=== PATIENT | female | born 1935 | race Caucasian/White ===

== ENCOUNTER 2018-02-09 10:01 | Emergency (ER) | payer OTHER, SELFPAY ==
--- OUTSIDE RECORDS SUMMARY | 2018-02-09 10:03 | XMS REPORT ---
:1935 [facility] Address [address] [place] [address] [address] [place] [address] Care Team Providers Name Role Phone NICHOLE PEREZ Unavailable Unavailable Problems This patient has no known problems. Allergies, Adverse Reactions, Alerts This patient has no known allergies or adverse reactions. Medications This patient has no known medications. Results Test Description Test Time Test Comments Text Results Atomic Results Result Comments BLOOD CULTURE 2017-12-22 05:01:00 Test Item Value Reference Range Comments CULTURE (BEAKER) (test dcop=6048) No growth in 5 days [id number] 11:31:00 Test Item Value Reference Range Comments MAGNESIUM (BEAKER) (test 2.2 mg/dL 1.6-2.6 Specimen slightly hemolyzed enhc=051) BASIC METABOLIC [id number] 11:31:00 Test Item Value Reference Range Comments SODIUM (BEAKER) (test 139 meq/L 136-145 wgjl=218) POTASSIUM (BEAKER) (test 4.0 meq/L 3.5-5.1 Specimen slightly dlif=174) hemolyzed CHLORIDE (BEAKER) (test 104 meq/L 98-107 adaw=090) CO2 (BEAKER) (test 27 meq/L 22-29 rsgs=066) BLOOD UREA NITROGEN 7 mg/dL 7-21 (BEAKER) (test lbsj=873) CREATININE (BEAKER) (test 0.60 mg/dL 0.57-1.25 Specimen slightly pltd=082) hemolyzed GLUCOSE RANDOM (BEAKER) 113 mg/dL 70-105 (test zepu=076) CALCIUM (BEAKER) (test 8.3 mg/dL 8.4-10.2 swlk=979) EGFR (BEAKER) (test 95 mL/min/1.73 sq m ESTIMATED GFR IS NOT ayrz=4011) ACCURATE CREATININE CLEARANCE IN PREDICTING GLOMERULAR FILTRATION RATE. ESTIMATED GFR IS NOT APPLICABLE FOR DIALYSIS PATIENTS. URINE [id number] 09:10:00 Test Item Value Reference Range Comments CULTURE (BEAKER) (test wlrt=6230) Amikacin (test code=1) Aztreonam (test code=32) Cefepime (test code=51) Cefoxitin (test code=68) Ceftazidime (test code=27) Ceftriaxone (test code=52) Ertapenem (test code=38) Gentamicin (test code=18) Levofloxacin (test code=22) Meropenem (test code=34) Nitrofurantoin (test code=23) Piperacillin + Tazobactam (test code=29) Tetracycline (test code=2) Tobramycin (test code=25) Trimethoprim + Sulfamethoxazole (test code=47) CULTURE (BEAKER) (test yuuj=0524) >100,000 col/mL Citrobacter braakii CBC W/PLT COUNT & AUTO [id number] 07:05:00 Test Item Value Reference Range Comments WHITE BLOOD CELL COUNT (BEAKER) (test dkim=412) 7.5 K/ L 3.5-10.5 RED BLOOD CELL COUNT (BEAKER) (test usaj=652) 4.30 M/ L 3.93-5.22 HEMOGLOBIN (BEAKER) (test nvoz=697) 10.1 GM/DL 11.2-15.7 HEMATOCRIT (BEAKER) (test lzem=721) 32.6 % 34.1-44.9 MEAN CORPUSCULAR VOLUME (BEAKER) (test lnvq=078) 75.8 fL 79.4-94.8 MEAN CORPUSCULAR HEMOGLOBIN (BEAKER) (test 23.5 pg 25.6-32.2 tiiw=469) MEAN CORPUSCULAR HEMOGLOBIN CONC (BEAKER) (test 31.0 GM/DL 32.2-35.5 tvaj=947) RED CELL DISTRIBUTION WIDTH (BEAKER) (test 14.1 % 11.7-14.4 brpk=483) PLATELET COUNT (BEAKER) (test lxqo=083) 289 K/CU MM 150-450 MEAN PLATELET VOLUME (BEAKER) (test enug=584) 9.1 fL 9.4-12.3 NUCLEATED RED BLOOD CELLS (BEAKER) (test 0 /100 WBC 0-0 rdki=108) NEUTROPHILS RELATIVE PERCENT (BEAKER) (test 73 % sxfl=983) LYMPHOCYTES RELATIVE PERCENT (BEAKER) (test 15 % tbef=764) MONOCYTES RELATIVE PERCENT (BEAKER) (test 9 % qawv=212) EOSINOPHILS RELATIVE PERCENT (BEAKER) (test 2 % vjbo=121) BASOPHILS RELATIVE PERCENT (BEAKER) (test 0 % lngw=772) NEUTROPHILS ABSOLUTE COUNT (BEAKER) (test 5.50 K/ L 1.56-6.13 ungi=118) LYMPHOCYTES ABSOLUTE COUNT (BEAKER) (test 1.12 K/ L 1.18-3.74 hwam=107) MONOCYTES ABSOLUTE COUNT (BEAKER) (test 0.67 K/ L 0.24-0.36 gawt=920) EOSINOPHILS ABSOLUTE COUNT (BEAKER) (test 0.16 K/ L 0.04-0.36 uvxm=668) BASOPHILS ABSOLUTE COUNT (BEAKER) (test 0.03 K/ L 0.01-0.08 euey=704) IMMATURE GRANULOCYTES-RELATIVE PERCENT (BEAKER) 0 % 0-1 (test kegy=6910) [id number] 08:15:00 Test Item Value Reference Range Comments MAGNESIUM (BEAKER) (test otak=502) 1.7 mg/dL 1.6-2.6 CBC W/PLT COUNT & AUTO [id number] 04:24:00 Test Item Value Reference Range Comments WHITE BLOOD CELL COUNT (BEAKER) (test dwdn=292) 6.7 K/ L 3.5-10.5 RED BLOOD CELL COUNT (BEAKER) (test qqzv=014) 3.69 M/ L 3.93-5.22 HEMOGLOBIN (BEAKER) (test mgbc=206) 8.6 GM/DL 11.2-15.7 HEMATOCRIT (BEAKER) (test jxfp=347) 28.5 % 34.1-44.9 MEAN CORPUSCULAR VOLUME (BEAKER) (test qvug=130) 77.2 fL 79.4-94.8 MEAN CORPUSCULAR HEMOGLOBIN (BEAKER) (test 23.3 pg 25.6-32.2 hdtu=182) MEAN CORPUSCULAR HEMOGLOBIN CONC (BEAKER) (test 30.2 GM/DL 32.2-35.5 ubhy=765) RED CELL DISTRIBUTION WIDTH (BEAKER) (test 13.7 % 11.7-14.4 zfts=085) PLATELET COUNT (BEAKER) (test qlww=360) 249 K/CU MM 150-450 MEAN PLATELET VOLUME (BEAKER) (test zrti=011) 8.8 fL 9.4-12.3 NUCLEATED RED BLOOD CELLS (BEAKER) (test 0 /100 WBC 0-0 omlw=933) NEUTROPHILS RELATIVE PERCENT (BEAKER) (test 64 % kxgs=920) LYMPHOCYTES RELATIVE PERCENT (BEAKER) (test 21 % lbbx=754) MONOCYTES RELATIVE PERCENT (BEAKER) (test 12 % xlln=685) EOSINOPHILS RELATIVE PERCENT (BEAKER) (test 3 % qhsi=605) BASOPHILS RELATIVE PERCENT (BEAKER) (test 0 % lecl=636) NEUTROPHILS ABSOLUTE COUNT (BEAKER) (test 4.23 K/ L 1.56-6.13 bxpp=367) LYMPHOCYTES ABSOLUTE COUNT (BEAKER) (test 1.39 K/ L 1.18-3.74 vede=688) MONOCYTES ABSOLUTE COUNT (BEAKER) (test 0.80 K/ L 0.24-0.36 typw=424) EOSINOPHILS ABSOLUTE COUNT (BEAKER) (test 0.20 K/ L 0.04-0.36 stfa=004) BASOPHILS ABSOLUTE COUNT (BEAKER) (test 0.02 K/ L 0.01-0.08 gwey=877) IMMATURE GRANULOCYTES-RELATIVE PERCENT (BEAKER) 0 % 0-1 (test ijki=7292) BASIC METABOLIC [id number] 04:19:00 Test Item Value Reference Range Comments SODIUM (BEAKER) (test 139 meq/L 136-145 sceg=726) POTASSIUM (BEAKER) (test 3.1 meq/L 3.5-5.1 glei=691) CHLORIDE (BEAKER) (test 103 meq/L 98-107 tdsw=515) CO2 (BEAKER) (test 29 meq/L 22-29 btco=319) BLOOD UREA NITROGEN 12 mg/dL 7-21 (BEAKER) (test zwcl=100) CREATININE (BEAKER) (test 0.65 mg/dL 0.57-1.25 jspx=321) GLUCOSE RANDOM (BEAKER) 91 mg/dL 70-105 (test qtta=110) CALCIUM (BEAKER) (test 8.1 mg/dL 8.4-10.2 vsrk=906) EGFR (LADONNA) (test 87 mL/min/1.73 sq m ESTIMATED GFR IS NOT ruqw=2311) ACCURATE CREATININE CLEARANCE IN PREDICTING GLOMERULAR FILTRATION RATE. ESTIMATED GFR IS NOT APPLICABLE FOR DIALYSIS PATIENTS. EEG MONITORING WITH VIDEO RECORDING EACH 24 [id number] 16:19:00Addendum BeginsAddendum:Start time: 0645Stop time: 1613 There continues to be background slowing, predominantly theta range intermixed with some delta and occasional faster frequencies. There is still no clear occipital dominant rhythm or frequency-amplitude gradient. The GPDs with triphasic morphology appear during deeper states of sedation but gradually decrease in frequency and prominence after 8 am. Overall, the degree of background slowing appears improved compared to prior recordings. Saida Wilkerson MDNeurophysiology Fellow Gely Cleary MD, MSEpilepsy/Neurophysiology Attending Addendum EndsDATE OF TEST: 12/16/2017 to DATE OF REPORT 12/16/17 ACC: [id number] Start time: 22: 43 Stop time: 06:45 ICD-10: G93.40 CPT Code: 26313 HISTORY: 82 yo F with history of chronic pain, chronic Lozano, osteoporosis, HTN, who was transferred from OSH for AMS and seizures. UDS +(patient on chronic pain medications). Loaded in ED with fosphenytoin. EEG ordered to evaluate fornon- convulsive status MEDICATIONS: Keppra, Ativan, Fopshenytoin TECHNICAL SUMMARY: This is a digital EEG study using the standard International 10-20 system for placement of 22 electrodes, including eye movement leads, and an EKG lead. DESCRIPTION OF RECORD: During the maximal stimulated state, there is no occipital dominant rhythm or anterior-posterior gradient. The background is made up of generalized 1.5-3 Hz delta and 4-7 Hz theta activity. In deeper states of sedation, there are broad-based bisynchronous sharp transients with a triphasic morphology occurring in runs with a periodicity of1 Hz (GPD with triphasic morphology); These are also more prominent during periods of stimulation (SI-GPD with triphasic morphology). These discharges are anterior predominant and have an anterior to posterior phase lag. Reactivity is demonstrated. Stage 2 sleep was not captured. There is no evidence of focal slowing or epileptiform activity. Photic stimulation and hyperventilation not performed. IMPRESSION: This EEG obtained during stupor is abnormal due to: 1. Moderate generalized (polymorphic delta and theta) background slowing, Reactive 2. Generalized periodic discharges with triphasic morphology (SI-GPD with triphasic morphology) COMMENT: The findings of generalized slowing supports an underlying moderate degree of encephalopathy. Triphasic waves are a nonspecific marker of acute cortical irritability that is typically seen in cases of metabolic encephalopathy, in particularliver dysfunction. The absence of epileptiform abnormality does not necessarily preclude the clinical diagnosis of epilepsy nor provoked seizure for the event(s) of interest. No seizures occurred during this recording. Saida Wilkerson MD Neurophysiology Fellow Gely Cleary MD, MS Epilepsy/Neurophysiology Attending [facility] METABOLIC [id number] 04:38:00 Test Item Value Reference Range Comments SODIUM (BEAKER) (test 142 meq/L 136-145 gpcj=056) POTASSIUM (BEAKER) (test 3.0 meq/L 3.5-5.1 kmka=712) CHLORIDE (BEAKER) (test 104 meq/L 98-107 gzsq=121) CO2 (BEAKER) (test 31 meq/L 22-29 fgne=432) BLOOD UREA NITROGEN 13 mg/dL 7-21 (BEAKER) (test nyhr=154) CREATININE (BEAKER) (test 0.64 mg/dL 0.57-1.25 vthn=760) GLUCOSE RANDOM (BEAKER) 122 mg/dL 70-105 (test luqq=034) CALCIUM (BEAKER) (test 8.1 mg/dL 8.4-10.2 zisf=895) EGFR (BEAKER) (test 89 mL/min/1.73 sq m ESTIMATED GFR IS NOT mfmt=9902) ACCURATE CREATININE CLEARANCE IN PREDICTING GLOMERULAR FILTRATION RATE. ESTIMATED GFR IS NOT APPLICABLE FOR DIALYSIS PATIENTS. CBC W/PLT COUNT & AUTO [id number] 04:03:00 Test Item Value Reference Range Comments WHITE BLOOD CELL COUNT (BEAKER) (test loyj=680) 8.6 K/ L 3.5-10.5 RED BLOOD CELL COUNT (BEAKER) (test eqnl=059) 3.94 M/ L 3.93-5.22 HEMOGLOBIN (BEAKER) (test oudk=961) 9.1 GM/DL 11.2-15.7 HEMATOCRIT (BEAKER) (test xpcc=485) 30.3 % 34.1-44.9 MEAN CORPUSCULAR VOLUME (BEAKER) (test wwym=244) 76.9 fL 79.4-94.8 MEAN CORPUSCULAR HEMOGLOBIN (BEAKER) (test 23.1 pg 25.6-32.2 wksj=792) MEAN CORPUSCULAR HEMOGLOBIN CONC (BEAKER) (test 30.0 GM/DL 32.2-35.5 scca=990) RED CELL DISTRIBUTION WIDTH (BEAKER) (test 13.4 % 11.7-14.4 tjxm=792) PLATELET COUNT (BEAKER) (test dkoq=453) 287 K/CU MM 150-450 MEAN PLATELET VOLUME (BEAKER) (test wmof=538) 8.7 fL 9.4-12.3 NUCLEATED RED BLOOD CELLS (BEAKER) (test 0 /100 WBC 0-0 vigt=234) NEUTROPHILS RELATIVE PERCENT (BEAKER) (test 74 % xgkh=284) LYMPHOCYTES RELATIVE PERCENT (BEAKER) (test 16 % asnj=754) MONOCYTES RELATIVE PERCENT (BEAKER) (test 9 % wtia=035) EOSINOPHILS RELATIVE PERCENT (BEAKER) (test 1 % ebjz=205) BASOPHILS RELATIVE PERCENT (BEAKER) (test 0 % nqcd=341) NEUTROPHILS ABSOLUTE COUNT (BEAKER) (test 6.35 K/ L 1.56-6.13 ukah=272) LYMPHOCYTES ABSOLUTE COUNT (BEAKER) (test 1.35 K/ L 1.18-3.74 svng=947) MONOCYTES ABSOLUTE COUNT (BEAKER) (test 0.80 K/ L 0.24-0.36 skla=065) EOSINOPHILS ABSOLUTE COUNT (BEAKER) (test 0.08 K/ L 0.04-0.36 npqh=621) BASOPHILS ABSOLUTE COUNT (BEAKER) (test 0.03 K/ L 0.01-0.08 prwu=858) IMMATURE GRANULOCYTES-RELATIVE PERCENT (BEAKER) 0 % 0-1 (test wvnw=0615) EEG AWAKE AND [id number] 23:06:00For STAT EEG- after 5 PM weekdays, weekends and holidays, page the on-call tractor trailer technician Reason for exam:->seizure, AMSDATE OF TEST: 12/16/17DATE OF REPORT 12/16/17ACC: [id number]: [id number] time : 22:22Stop time: 22:43ICD-10: G93.40CPT Code: 66314 HISTORY: 82 yo F with history of chronic pain, chronic Lozano, osteoporosis, HTN, who was transferred from OSH for AMS and seizures. UDS + (patient on chronic pain medications). Loaded in ED with fosphenytoin. EEG ordered to evaluate for non-convulsive status MEDICATIONS: Keppra, Ativan, Fopshenytoin TECHNICAL SUMMARY: This is a digital EEG study using the standard International 10-20 system for placement of 22 electrodes, including eye movement leads, and an EKG lead. DESCRIPTION OF RECORD: During the maximal stimulated state, there is no occipital dominant rhythm. There is no anterior-posterior gradient. The background activity is populated by moderate generalized 1.5-3Hz delta activity, alternating with periods of low voltage 1.5-3 Hz activity lasting for 2-3 seconds. There is occasional scattered 4-6 Hz theta activity. Electrodecremental EEG segments lasting 2 seconds were common. There is some spontaneous variability and external reactivity. Stage 2 sleep was not captured. There is no evidence of focal slowing or epileptiform activity. Photic stimulation and hyperventilation not performed. IMPRESSION: This EEG obtained during stupor is abnormal due to:1. Moderate generalized (delta) background slowing, polymorphic, reactive COMMENT: Generalized slowing as in this record supports an underlying moderate degree of encephalopathy. The absence of epileptiform abnormality does not necessarily preclude the clinical diagnosis of epilepsy nor provoked seizure for the event(s) of interest. No seizures occurred during this recording. Tete Galeas MDEpilepsy Fellow Nabila Sanchez M.D., FACNSProfessor of NeurologyDirector, [facility] EpilepsyOhio Valley Surgical HospitalerOhio [facility], [facility] Neurophysiology Lab Electronically signed by: NABILA Foreman 12/16/2017 11:06 PMRAD, CHEST, 1 VIEW, NON [id number] 21:41: 00Reason for exam:->concern for PNAShould this be performed at the bedside?-& gt;YesFINAL REPORT INDICATION: concern for PNA COMPARISON : None TECHNIQUE: Single frontal view of the chest. FINDINGS: Limited by severe scoliosis and contractures.Lungs and pleura: Clear lungs. No effusion.Heart and mediastinum: Normal heart size. Unremarkable mediastinal contours.Osseous structures: No acute abnormality.Other: None. IMPRESSION: No acute intrathoracic abnormality. Signed: JR Lamb Robert MDReport Verified Date/Time: 12/16/2017 21:41:51 Reading Location: [address] Reading Room [id number] 19:57:00 Test Item Value Reference Range Comments FERRITIN (BEAKER) (test hzte=236) 36 ng/mL 5-275 VITAMIN D, [id number] 19:57:00 Test Item Value Reference Range Comments VITAMIN D 25-OH (BEAKER) (test cheu=1207) 8.2 ng/mL 6.6-49.9 Effective 09/05/2017: Reference Range ChangeNew: 6.6-49.9 ng/mL Previous: 13.0 -47.8 ng/mLRecommended Vitamin D Target Range: 30.0-40.0 ng/mLTSH/FREE T4 IF [id number] 19:57:00 Test Item Value Reference Range Comments THYROID STIMULATING HORMONE (BEAKER) (test 3.15 uIU/mL 0.35-4.94 tfhe=814) VITAMIN B12 AND [id number] 19:57:00 Test Item Value Reference Range Comments VITAMIN B12 (BEAKER) (test iwxx=157) 376 pg/mL 213-816 FOLATE (BEAKER) (test isjw=194) 15.8 ng/mL >=7.0 URINALYSIS W/ [id number] 19:28:00 Test Item Value Reference Range Comments COLOR (BEAKER) (test skhd=558) Yellow CLARITY (BEAKER) (test fwmm=514) Clear SPECIFIC GRAVITY UA (BEAKER) (test afqb=115) 1.017 1.001-1.035 PH UA (BEAKER) (test exci=887) 5.5 5.0-8.0 PROTEIN UA (BEAKER) (test fpyc=300) 50 mg/dL Negative GLUCOSE UA (BEAKER) (test prah=349) Negative Negative KETONES UA (BEAKER) (test qpja=449) 40 mg/dL Negative BILIRUBIN UA (BEAKER) (test zdnm=512) Negative Negative BLOOD UA (BEAKER) (test ahta=452) Negative Negative NITRITE UA (BEAKER) (test jjsw=069) Negative Negative LEUKOCYTE ESTERASE UA (BEAKER) (test xiut=602) Moderate Negative UROBILINOGEN UA (BEAKER) (test tiek=418) 0.2 mg/dL 0.2-1.0 RBC UA (BEAKER) (test eniw=039) 1 /HPF WBC UA (BEAKER) (test ajln=044) 55 /HPF BACTERIA (BEAKER) (test nyig=272) Occasional MUCUS (BEAKER) (test zyhj=1390) Many HYALINE CASTS (BEAKER) (test mgbs=368) 10 /LPF SOURCE(BEAKER) (test zjim=4131) Urine, [place] IRON, TIBC, % SAT. (WITHOUT FERRITIN)2017-12-16 19:21:00 Test Item Value Reference Range Comments IRON (BEAKER) (test qptl=049) 24 ug/dL 40-160 TOTAL IRON BINDING CAPACITY (BEAKER) (test 309 ug/dL 250-450 izei=794) IRON % SATURATION (2) (BEAKER) (test lese=2182) 8 % 20-55 BASIC METABOLIC [id number] 19:20:00 Test Item Value Reference Range Comments SODIUM (BEAKER) (test 141 meq/L 136-145 kete=518) POTASSIUM (BEAKER) (test 4.0 meq/L 3.5-5.1 Specimen moderately rdzt=035) hemolyzed CHLORIDE (BEAKER) (test 102 meq/L 98-107 jpqq=242) CO2 (BEAKER) (test 30 meq/L 22-29 siyq=593) BLOOD UREA NITROGEN 12 mg/dL 7-21 (BEAKER) (test ffoe=131) CREATININE (BEAKER) (test 0.66 mg/dL 0.57-1.25 Specimen moderately hyry=463) hemolyzed GLUCOSE RANDOM (BEAKER) 102 mg/dL 70-105 (test orqz=341) CALCIUM (BEAKER) (test 8.3 mg/dL 8.4-10.2 utet=908) EGFR (BEAKER) (test 86 mL/min/1.73 sq m ESTIMATED GFR IS NOT jqnf=1114) ACCURATE CREATININE CLEARANCE IN PREDICTING GLOMERULAR FILTRATION RATE. ESTIMATED GFR IS NOT APPLICABLE FOR DIALYSIS PATIENTS. CBC W/PLT COUNT & AUTO [id number] 19:06:00 Test Item Value Reference Range Comments WHITE BLOOD CELL COUNT (BEAKER) (test vmik=043) 8.2 K/ L 3.5-10.5 RED BLOOD CELL COUNT (BEAKER) (test lkej=866) 4.05 M/ L 3.93-5.22 HEMOGLOBIN (BEAKER) (test kylx=007) 9.4 GM/DL 11.2-15.7 HEMATOCRIT (BEAKER) (test sxmz=667) 30.9 % 34.1-44.9 MEAN CORPUSCULAR VOLUME (BEAKER) (test eoyd=599) 76.3 fL 79.4-94.8 MEAN CORPUSCULAR HEMOGLOBIN (BEAKER) (test 23.2 pg 25.6-32.2 xzpf=369) MEAN CORPUSCULAR HEMOGLOBIN CONC (BEAKER) (test 30.4 GM/DL 32.2-35.5 mrqi=087) RED CELL DISTRIBUTION WIDTH (BEAKER) (test 13.6 % 11.7-14.4 dwrf=737) PLATELET COUNT (BEAKER) (test akkb=373) 301 K/CU MM 150-450 MEAN PLATELET VOLUME (BEAKER) (test oabu=381) 8.7 fL 9.4-12.3 NUCLEATED RED BLOOD CELLS (BEAKER) (test 0 /100 WBC 0-0 niug=645) NEUTROPHILS RELATIVE PERCENT (BEAKER) (test 78 % izrh=999) LYMPHOCYTES RELATIVE PERCENT (BEAKER) (test 13 % agqx=816) MONOCYTES RELATIVE PERCENT (BEAKER) (test 9 % wfzh=279) EOSINOPHILS RELATIVE PERCENT (BEAKER) (test 1 % qvie=995) BASOPHILS RELATIVE PERCENT (BEAKER) (test 0 % dfwt=793) NEUTROPHILS ABSOLUTE COUNT (BEAKER) (test 6.35 K/ L 1.56-6.13 hhkd=608) LYMPHOCYTES ABSOLUTE COUNT (BEAKER) (test 1.06 K/ L 1.18-3.74 cgze=418) MONOCYTES ABSOLUTE COUNT (BEAKER) (test 0.70 K/ L 0.24-0.36 rfhb=685) EOSINOPHILS ABSOLUTE COUNT (BEAKER) (test 0.04 K/ L 0.04-0.36 bixv=129) BASOPHILS ABSOLUTE COUNT (BEAKER) (test 0.03 K/ L 0.01-0.08 wxxu=147) IMMATURE GRANULOCYTES-RELATIVE PERCENT (BEAKER) 0 % 0-1 (test hdxz=2610)
--- NOTE | 2018-02-09 10:44 | EDPHYS ---
Physician Documentation [facility] Name: Gloria Armenta Age: 82 yrs Sex: Female : 1935 Arrival Date: 02/09/2018 Time: 10:02 Bed 15 Private MD: Thang Montero ED Physician Ang Roche HPI: 02/09 10:56 This 82 yrs old Female presents to ER via Ambulatory with complaints of snw Abdominal Swelling. 10:56 The patient presents with abdominal distention in the left lower quadrant. Onset: The snw symptoms/episode began/occurred 1 week(s) ago, and became worse and became persistent. The symptoms do not radiate. Associated signs and symptoms: Pertinent negatives: fever. The symptoms are described as steady. Severity of pain: At its worst the pain was moderate. The patient has experienced similar episodes in the past. The patient has been recently seen at the [facility] Emergency Department, this week, for similar complaints encouraged to f/u PCP and surgery (where pain pump placed). Historical: - Allergies: 10:22 Aspirin; hj 10:22 Cefaclor; hj 10:22 Celecoxib; hj 10:22 Cephalexin; hj 10:22 CEPHALOSPORINS; hj 10:22 Chlorpromazine; hj 10:22 chlorpromazine HCl; hj 10:22 esomeprazole mag; hj 10:22 Ketorolac; hj 10:22 ketorolac tromethamine; hj 10:22 Meperidine; hj 10:22 Morphine; hj 10:22 prochlorperazine Edisylate; hj 10:22 Prochlorperazine Maleate; hj 10:22 Sulfa (Sulfonamide Antibiotics); hj 10:22 Rofecoxib; hj 10:22 SUMATRIPTAN; hj 10:22 Sumatriptan Succinate; hj - PMHx: 10:22 Chronic headaches; Chronic pain; hj ROS: 10:52 Constitutional: Negative for fever, chills, and weight loss, Eyes: Negative for injury, snw pain, redness, and discharge, ENT: Negative for injury, pain, and discharge, Neck: Negative for injury, pain, and swelling, Cardiovascular: Negative for chest pain, palpitations, and edema, Respiratory: Negative for shortness of breath, cough, wheezing, and pleuritic chest pain, Back: Negative for injury and pain, : Negative for injury, bleeding, discharge, and swelling, MS/Extremity: Negative for injury and deformity, Skin: Negative for injury, rash, and discoloration, Neuro: Negative for headache, weakness, numbness, tingling, and seizure. 10:52 Abdomen/GI: Positive for pain pump area pain and swelling. Exam: 10:52 Constitutional: This is a well developed, well nourished patient who is awake, alert, snw and in no acute distress. 10:52 Eyes: Pupils equal round and reactive to light, extra-ocular motions intact. Lids and lashes normal. Conjunctiva and sclera are non-icteric and not injected. Cornea within normal limits. Periorbital areas with no swelling, redness, or edema. ENT: Nares patent. No nasal discharge, no septal abnormalities noted. Tympanic membranes are normal and external auditory canals are clear. Oropharynx with no redness, swelling, or masses, exudates, or evidence of obstruction, uvula midline. Mucous membranes moist. Neck: Trachea midline, no thyromegaly or masses palpated, and no cervical lymphadenopathy. Supple, full range of motion without nuchal rigidity, or vertebral point tenderness. No Meningismus. Chest/axilla: Normal chest wall appearance and motion. Nontender with no deformity. No lesions are appreciated. 10:52 Respiratory: Lungs have equal breath sounds bilaterally, clear to auscultation and percussion. No rales, rhonchi or wheezes noted. No increased work of breathing, no retractions or nasal flaring. Back: No spinal tenderness. No costovertebral tenderness. Full range of motion. Skin: Warm, dry with normal turgor. Normal color with no rashes, no lesions, and no evidence of cellulitis. MS/ Extremity: Pulses equal, no cyanosis. Neurovascular intact. Full, normal range of motion. Neuro: Awake and alert, GCS 15, oriented to person, place, time, and situation. Cranial nerves II-XII grossly intact. Motor strength 5/5 in all extremities. Sensory grossly intact. Cerebellar exam normal. Normal gait. 10:52 Head/face: Noted is periorbital erythema. 10:52 Cardiovascular: Rate: normal, Rhythm: regular, Pulses: no pulse deficits are appreciated, Heart sounds: murmur, systolic, grade 3 over 6, Edema: ankle edema, that is mild, that is moderate. 10:52 Abdomen/GI: Inspection: pain pump incision site to left lower quad with palpable fluid between skin and pump, incision with erythema that was not present at last evaluation per me at this ED. 10:52 Back: kyphosis, scoliosis Vital Signs: 10:23 BP 127 / 69; Pulse 69; Resp 18; Temp 97.6(TE); Pulse Ox 98% on R/A; Weight 57.61 kg; hj Height 5 ft. 7 in. (170.18 cm); Pain 6/10; 10:45 BP 133 / 104; Pulse 78; Resp 16; Pulse Ox 100% on R/A; Pain 7/10; jtb 10:23 Body Mass Index 19.89 (57.61 kg, 170.18 cm) hj MDM: 10:30 Patient medically screened. ma2 10:55 Data reviewed: vital signs, nurses notes. Data interpreted: Pulse oximetry: on room air snw is 98 %. Interpretation: normal. Counseling: I had a detailed discussion with the patient and/or guardian regarding: the historical points, exam findings, and any diagnostic results supporting the discharge/admit diagnosis, the need for outpatient follow up, to return to the emergency department if symptoms worsen or persist or if there are any questions or concerns that arise at home. Special discussion: Based on the history and exam findings, there is no indication for further emergent testing or inpatient evaluation. I discussed with the patient/guardian the need to see the general surgeon for further evaluation of the symptoms. I discussed with the patient/guardian the need to see the painter bottom for further evaluation of the symptoms. I discussed with the patient/guardian the need to see the primary care provider for further evaluation of the symptoms. Administered Medications: 10:53 Drug: LevaQUIN 750 mg Route: PO; jl7 10:56 Follow up: Response: Medication administered at discharge. jl7 Disposition: 18:38 Co-signature as Attending Physician, Ang Roche MD I agree with the assessment ma2 and plan of care. Disposition: 02/09/18 10:44 Discharged to Home. Impression: Cellulitis, unspecified. - Condition is Stable. - Discharge Instructions: Cellulitis, Chronic Pain. - Prescriptions for Levaquin 500 mg Oral Tablet - take 1 tablet by ORAL route once daily for 10 days Start on 02/10/18; 10 tablet. - Medication Reconciliation Form, Thank You Letter, Antibiotic Education, Prescription Opioid Use form. - Follow up: Private Physician; When: 48 Hours; Reason: Recheck today's complaints, Continuance of care, Re-evaluation by your physician. Follow up: Emergency Department; When: As needed; Reason: Worsening of condition. Signatures: Leyla Enriquez, STREET SPRINKLER-C STREET SPRINKLER-[employer] Jesús Avilez RN RN hj Celso Frazier RN RN jl7 Ang Roche MD MD ma2 Michael Hoyos
--- NOTE | 2018-02-09 10:44 | ER ---
Nurse's Notes [facility] Name: Gloria Armenta Age: 82 yrs Sex: Female : 1935 Arrival Date: 02/09/2018 Time: 10:02 Bed 15 Private MD: Thang Montero Diagnosis: Cellulitis, unspecified Presentation: 02/09 10:19 Presenting complaint: Patient states: i had my pain pump replaced about 10 days ago on hj my L lower abdomen and it the area is swollen; denies fever and chills; pain is 6/10, "uncomfortable";. Transition of care: patient was not received from another setting of care. Onset of symptoms was February 01, 2018. 10:19 Method Of Arrival: Ambulatory hj 10:19 Acuity: AURELIO 4 hj 10:23 Care prior to arrival: None. hj Triage Assessment: 10:22 General: Appears in no apparent distress. uncomfortable, Behavior is calm, cooperative, hj appropriate for age. Pain: Denies pain. GI: Reports. Historical: - Allergies: 10:22 Aspirin; hj 10:22 Cefaclor; hj 10:22 Celecoxib; hj 10:22 Cephalexin; hj 10:22 CEPHALOSPORINS; hj 10:22 Chlorpromazine; hj 10:22 chlorpromazine HCl; hj 10:22 esomeprazole mag; hj 10:22 Ketorolac; hj 10:22 ketorolac tromethamine; hj 10:22 Meperidine; hj 10:22 Morphine; hj 10:22 prochlorperazine Edisylate; hj 10:22 Prochlorperazine Maleate; hj 10:22 Sulfa (Sulfonamide Antibiotics); hj 10:22 Rofecoxib; hj 10:22 SUMATRIPTAN; hj 10:22 Sumatriptan Succinate; hj - PMHx: 10:22 Chronic headaches; Chronic pain; hj Screenin:30 Abuse screen: Denies threats or abuse. Denies injuries from another. Nutritional jtb screening: No deficits noted. Tuberculosis screening: No symptoms or risk factors identified. Fall Risk None identified. Assessment: 10:23 GI: Bowel sounds present X 4 quads. Abd is soft. hj 10:30 General: Appears in no apparent distress. uncomfortable, Behavior is calm, cooperative, jtb appropriate for age, Pt reports pain at sight of pain pump replacement. Area is red and warm.. 10:30 Pain: Complains of pain in left lower quadrant Pain does not radiate. Pain currently is jtb 7 out of 10 on a pain scale. at worst was 7 out of 10 on a pain scale. Quality of pain is described as aching, dull, Pain began 2-3 days ago. Is continuous. Neuro: Level of Consciousness is awake, alert, obeys commands, Oriented to person, place, time, situation. Cardiovascular: Patient's skin is warm and dry. Respiratory: Airway is patent Respiratory effort is even, unlabored, Respiratory pattern is regular, symmetrical. GI: No signs and/or symptoms were reported involving the gastrointestinal system. : No signs and/or symptoms were reported regarding the genitourinary system. EENT: No signs and/or symptoms were reported regarding the EENT system. Derm: Skin is intact, Skin is pink, warm \\T\\ dry. Musculoskeletal: No signs and/or symptoms reported regarding the musculoskeletal system. Vital Signs: 10:23 BP 127 / 69; Pulse 69; Resp 18; Temp 97.6(TE); Pulse Ox 98% on R/A; Weight 57.61 kg; hj Height 5 ft. 7 in. (170.18 cm); Pain 6/10; 10:45 BP 133 / 104; Pulse 78; Resp 16; Pulse Ox 100% on R/A; Pain 7/10; jtb 10:23 Body Mass Index 19.89 (57.61 kg, 170.18 cm) ED Course: 10:02 Patient arrived in ED. mr 10:02 Thang Montero DO is Private Physician. mr 10:21 Triage completed. hj 10:23 Arm band placed on right wrist. hj 10:30 Ang Roche MD is Attending Physician. ma2 10:30 Patient has correct armband on for positive identification. Bed in low position. Call jtb light in reach. Side rails up X 1. Pulse ox on. NIBP on. 10:34 Leyla Enriquez FNP-C is PHCP. snw 10:45 No provider procedures requiring assistance completed. Patient did not have IV access jtb during this emergency room visit. 10:56 Celso Frazier RN is Primary Nurse. jl7 Administered Medications: 10:53 Drug: LevaQUIN 750 mg Route: PO; jl7 10:56 Follow up: Response: Medication administered at discharge. jl7 Outcome: 10:44 Discharge ordered by . snw 11:02 Attestation : I agree with everything documented by Michael Hoyos, Student Nurse. jl7 11:03 Discharged to home ambulatory. jtb 11:03 Condition: stable 11:03 Discharge instructions given to patient, Instructed on discharge instructions, follow up and referral plans. medication usage, Demonstrated understanding of instructions, follow-up care, medications, Prescriptions given X 1. 11:03 Patient left the ED. jtb Signatures: Leyla Enriquez, CAREERS ADVISER-C CAREERS ADVISER-Csnw Yudy Moody mr Jesús Avilez, RN RN Celso Frazier RN RN Ang Wong MD MD ca2 Michael Hoyos Corrections: (The following items were deleted from the chart) 10:24 10:19 Presenting complaint: Patient states: i had my pain pump replaced about 10 days hj ago on my L lower abdomen and it the area is swollen; denies fever and chills; denies pain, but "uncomfortable"; hj 10:25 10:23 57.61 kg; Height 5 ft. 7 in.; BMI: 19.8; Pain 6/10; hj hj 10:25 10:23 Pulse 69bpm; Resp 18bpm; Pulse Ox 98% RA; Temp 97.6F Temporal; 57.61 kg; Height 5 hj ft. 7 in.; BMI: 19.8; Pain 6/10; hj 10:41 10:19 Acuity: AURELIO 3 hj hj
[2018-02-09] MEDS ORDERED: levoFLOXacin 750 MG TAB ONE (11:08)
[2018-02-09 11:09] VITALS: TEMP 97.6
[2018-02-09 11:10] VITALS: BP 133/104; O2SAT 100
== END 2018-02-09 11:03 | disposition home or self-care (01) ==
LOC: ER 10:01
DX: L03.311 Cellulitis of abdominal wall (principal); Z88.1 Allergy status to other antibiotic agents; Z88.2 Allergy status to sulfonamides; Z88.3 Allergy status to other anti-infective agents; Z88.5 Allergy status to narcotic agent; Z88.6 Allergy status to analgesic agent; Z88.8 Allergy status to other drugs, medicaments and biological substances; Z98.890 Other specified postprocedural states
CPT/HCPCS: 99283

== ENCOUNTER 2018-03-08 03:45 | Emergency (ER) | payer OTHER, SELFPAY ==
--- OUTSIDE RECORDS SUMMARY | 2018-03-08 03:49 | XMS REPORT | Clinical Summary ---
:1935 Author Organization [facility] Address [address] [place] [address] Phone Care Team Providers Name Role Phone Unavailable Primary Care Provider Unavailable Allergies Active Allergy Reactions Severity Noted Date Comments Cephalexin Hives High 12/16/2017 Per patient Aspirin Nausea And Vomiting 12/16/2017 Cefaclor 12/16/2017 Celecoxib 12/16/2017 Chlorpromazine 12/16/2017 Meperidine 12/16/2017 Esomeprazole 12/16/2017 Ketorolac 12/16/2017 Sulfa (Sulfonamide Antibiotics) 12/16/2017 Sumatriptan 12/16/2017 Current Medications Prescription Sig. Disp. Refills Start Date End Date Status diclofenac Take 50 mg by Active (VOLTAREN) 50 MG EC mouth 2 (two) tablet times daily. nitroglycerin Place 0.4 mg Active (NITROSTAT) 0.4 MG under the SL tablet tongue every 5 (five) minutes as needed for Chest pain Put 1 pill under tongue every 5min as needed for chest pain.No more than 3 doses in 15min.Call 911 if pain is unrelieved 5min after 1st dose . levothyroxine Take 25 mcg by Active (SYNTHROID, mouth Every LEVOTHROID) 25 MCG morning on an tablet empty stomach. amLODIPine Take 1 tablet 0 12/21/2017 Active (NORVASC) 10 MG (10 mg total) 9 tablet by mouth daily. cloNIDine HCl Take 1 tablet 0 12/20/2017 Active (CATAPRES) 0.1 MG (0.1 mg total) 9 tablet by mouth 3 (three) times daily. acetaminophen-codei Take 1 tablet Discontinued ne (TYLENOL #3) by mouth 2 8 300-30 mg per (two) times tablet daily. butalbital-aspirin- Take 1 tablet Discontinued caffeine 50-325-40 by mouth every 8 mg Tab per tablet 4 (four) hours as needed. traMADol (ULTRAM) Take 50 mg by Discontinued 50 mg tablet mouth. 8 azithromycin Take 250 mg by Discontinued (ZITHROMAX) 250 MG mouth daily 8 tablet Take by mouth as directed. . cetirizine (ZYRTEC) Take 10 mg by Discontinued 10 MG tablet mouth daily. 8 cloNIDine HCl Take 0.1 mg by Discontinued (CATAPRES) 0.1 MG mouth 3 (three) 8 tablet times daily. furosemide (LASIX) Take 40 mg by Discontinued 40 MG tablet mouth as needed 8 (for edema). doxycycline Take 100 mg by Discontinued (VIBRAMYCIN) 100 MG mouth 2 (two) 8 capsule times daily. amLODIPine Take 5 mg by Discontinued (NORVASC) 5 MG mouth daily. 8 tablet promethazine Take 25 mg by Discontinued (PHENERGAN) 25 MG mouth every 6 8 tablet (six) hours as needed for Nausea. ondansetron Take 4 mg by Discontinued (ZOFRAN) 4 MG mouth 2 (two) 8 tablet times daily as needed for Nausea. promethazine Place 25 mg Discontinued (PHENERGAN) 25 MG rectally daily. 8 suppositoryIndicati ons: as needed. nitrofurantoin, Take 1 capsule 14 capsule 0 12/20/2017 macrocrystal-monohy (100 mg total) 8 drate, (MACROBID) by mouth every 100 MG capsule 12 (twelve) hours for 7 days. Active Problems Problem Noted Date Acute encephalopathy 12/17/2017 Altered mental status, unspecified 12/16/2017 ADHD 12/16/2017 Chronic headaches 12/16/2017 Chronic pain 12/16/2017 Hypertension 12/16/2017 Hypothyroidism 12/16/2017 Osteoporosis 12/16/2017 Encounters Date Type Specialty Care Team Description 12/16/2017 - Hospital Encounter General Internal Lazaridis, Acute 12/20/2017 Medicine MD Burt encephalopathy;Chron Ashley Lopez MD headache, unspecified headache type;Hypothyroidism, unspecified type;Acute cystitis without hematuria after 03/07/2017 Social History Tobacco Use Types Packs/Day Years Used Date Never Smoker Smokeless Tobacco: Never Used Sex Assigned at Date Recorded Not on file Last Filed Vital Signs Vital Sign Reading Time Taken Blood Pressure 157/77 12/20/2017 11:34 AM PHYTOCHEMISTRY PROFESSOR Pulse 76 12/20/2017 11:34 AM PHYTOCHEMISTRY PROFESSOR Temperature 36.5 C (97.7 F) 12/20/2017 11:34 AM PHYTOCHEMISTRY PROFESSOR Respiratory Rate 18 12/20/2017 11:34 AM PHYTOCHEMISTRY PROFESSOR Oxygen Saturation 98% 12/20/2017 11:34 AM PHYTOCHEMISTRY PROFESSOR Inhaled Oxygen Concentration - - Weight 54 kg (119 lb) 12/20/2017 5:00 AM PHYTOCHEMISTRY PROFESSOR Height 157.5 cm (5' 2") 12/16/2017 5:25 PM PHYTOCHEMISTRY PROFESSOR Body Mass Index 21.77 12/20/2017 5:00 AM PHYTOCHEMISTRY PROFESSOR Plan of Treatment Not on file Results RHYTHM STRIP - SCAN (12/21/2017 2:41 PM)Magnesium (12/19/2017 7:31 AM)Only the most recent of2 resultswithin the time period is included. Component Value Ref Range Magnesium 2.2Comment: Specimen slightly hemolyzed 1.6 - 2.6 mg/dL Specimen Performing Laboratory Blood - Line, Venous [facility] [address] [address] Basic Metabolic Panel (12/19/2017 7:31 AM)Only the most recent of4 resultswithin the time period is included. Component Value Ref Range Sodium 139 136 - 145 meq/L Potassium 4.0Comment: Specimen slightly hemolyzed 3.5 - 5.1 meq/L Chloride 104 98 - 107 meq/L CO2 27 22 - 29 meq/L BUN 7 7 - 21 mg/dL Creatinine 0.60Comment: Specimen slightly hemolyzed 0.57 - 1.25 mg/dL Glucose 113 (H) 70 - 105 mg/dL Calcium 8.3 (L) 8.4 - 10.2 mg/dL EGFR 95Comment: ESTIMATED GFR IS NOT ACCURATE mL/min/1.73 sq m CREATININE CLEARANCE IN PREDICTING GLOMERULAR FILTRATION RATE. ESTIMATED GFR IS NOT APPLICABLE FOR DIALYSIS PATIENTS. Specimen Performing Laboratory Blood - Line, Venous [address] [address] CBC with platelet count + automated diff (12/19/2017 6:58 AM)Only the most recent of4 resultswithin the time period is included. Component Value Ref Range WBC 7.5 3.5 - 10.5 K/L RBC 4.30 3.93 - 5.22 M/L Hemoglobin 10.1 (L) 11.2 - 15.7 GM/DL Hematocrit 32.6 (L) 34.1 - 44.9 % MCV 75.8 (L) 79.4 - 94.8 fL MCH 23.5 (L) 25.6 - 32.2 pg MCHC 31.0 (L) 32.2 - 35.5 GM/DL RDW 14.1 11.7 - 14.4 % Platelets 289 150 - 450 K/CU MM MPV 9.1 (L) 9.4 - 12.3 fL nRBC 0 0 - 0 /100 WBC % Neutros 73 % % Lymphs 15 % % Monos 9 % % Eos 2 % % Baso 0 % # Neutros 5.50 1.56 - 6.13 K/L # Lymphs 1.12 (L) 1.18 - 3.74 K/L # Monos 0.67 (H) 0.24 - 0.36 K/L # Eos 0.16 0.04 - 0.36 K/L # Baso 0.03 0.01 - 0.08 K/L Immature Granulocytes-Relative 0 0 - 1 % Specimen Performing Laboratory Blood - Line, Venous [address] [address] CBC with platelet count + automated diff (12/19/2017 6:58 AM)Only the most recent of4 resultswithin the time period is included. Specimen Performing Laboratory Blood Narrative The following orders were created for panel order CBC with platelet count + automated diff. Procedure Abnormality Status --------- ------ CBC with platelet count ...[[id number]]AbnormalFinal result Please view results for these tests on the individual orders. EEG monitoring with video recording each 24 hours (12/17/2017 7:00 AM) Specimen Performing Laboratory GE RIS Narrative Addendum Begins Addendum: Start time: 0645 Stop time: 1613 There continues to be background [...] improved compared to prior recordings. Saida Wilkerson MD Neurophysiology Fellow Gely Cleary MD, MS Epilepsy/Neurophysiology Attending Addendum Ends DATE OF TEST: 12/16/2017 to 12/17/2017 DATE OF REPORT 12/16/17 ACC: [id number] Start time: 22:43 Stop time: 06:45 ICD-10: G93.40 CPT Code: 22471 HISTORY: 82 yo F with history of chronic pain, chronic Lozano, osteoporosis, HTN, who was transferred from [facility] for AMS and seizures. UDS + (patient [...] morphology occurring in runs with a periodicity of 1 Hz (GPD with triphasic morphology); These are [...] seen in cases of metabolic encephalopathy, in particular liver dysfunction. The absence of epileptiform abnormality does not necessarily preclude the clinical diagnosis of epilepsy nor provoked seizure for the event(s) of interest. No seizures occurred during this recording. Saida Wilkerson MD Neurophysiology Fellow Gely Cleary MD, MS Epilepsy/Neurophysiology Attending Procedure Note Interface, External Ris In - 12/17/2017 4:19 PM PHYTOCHEMISTRY PROFESSOR Addendum Begins Addendum: Start time: 0645 Stop time: 1613 There continues to be background [...] improved compared to prior recordings. Saida Wilkerson MD Neurophysiology Fellow Gely Cleary MD, MS Epilepsy/Neurophysiology Attending Addendum Ends DATE OF TEST: 12/16/2017 to 12/17/2017 DATE OF REPORT 12/16/17 ACC: [id number] [id number] Start time: 22:43 Stop time: 06:45 ICD-10: G93.40 CPT Code: 64245 HISTORY: 82 yo F with history of [...] morphology occurring in runs with a periodicity of 1 Hz (GPD with triphasic morphology); These are [...] seen in cases of metabolic encephalopathy, in particular liver dysfunction. The absence of epileptiform abnormality does not necessarily preclude the clinical diagnosis of epilepsy nor provoked seizure for the event(s) of interest. No seizures occurred during this recording. Saida Wilkerson MD Neurophysiology Fellow Gely Cleary MD, MS Epilepsy/Neurophysiology Attending AWAKE AND DROWSY (12/16/2017 10:33 PM) Specimen Performing Laboratory GE RIS Narrative DATE OF TEST: 12/16/17 DATE OF REPORT 12/16/17 ACC: [id number] [id number] Start time: 22:22 Stop time: 22:43 ICD-10: G93.40 CPT Code: 01446 HISTORY: 82 yo F with history of [...] dominant rhythm. There is no anterior-posterior gradient. Thebackground activity is populated by moderate generalized 1.5-3 Hz delta activity, alternating with periods of low voltage 1.5-3 Hz activity lasting for 2-3 seconds. There is occasional scattered 4-6 Hz theta activity. Electrodecremental EEG segments lasting 2 seconds were common.There is some spontaneous variability and external reactivity. Stage 2 sleep was not captured. There is no evidence of focal slowing or epileptiform activity. Photic stimulation and hyperventilation not performed. IMPRESSION: This EEG obtained during stupor is abnormal due to: 1.Moderate generalized (delta) background slowing, polymorphic, reactive COMMENT: Generalized slowing as in this record supports an underlying moderate degree of encephalopathy. The absence of epileptiform abnormality does not necessarily preclude the clinical diagnosis of epilepsy nor provoked seizure for the event(s) of interest. No seizures occurred during this recording. Tete Galeas MD Epilepsy Fellow Nabila Sanchez M.D., [facility] Professor of Neurology Director, [facility] Epilepsy [place], [facility] Neurophysiology Lab Procedure Note Interface, External Ris In - 12/16/2017 11:06 PM PHYTOCHEMISTRY PROFESSOR DATE OF TEST: 12/16/17 DATE OF REPORT 12/16/17 ACC: [id number] [id number] Start time: 22:22 Stop time: 22:43 ICD-10: G93.40 CPT Code: 72443 HISTORY: 82 yo F with history of chronic pain, chronic Lozano, osteoporosis, HTN, who was transferred from [facility] for AMS and seizures. UDS + (patient [...] background activity is populated by moderate generalized 1.5-3 Hz delta activity, alternating with periods of low [...] is abnormal due to: 1. Moderate generalized (delta) background slowing, polymorphic, reactive COMMENT: Generalized slowing as in this record supports an underlying moderate degree of encephalopathy. The absence of epileptiform abnormality does not necessarily preclude the clinical diagnosis of epilepsy nor provoked seizure for the event(s) of interest. No seizures occurred during this recording. Tete Galeas MD Epilepsy Fellow Nabila Sanchez M.D., [facility] Professor of Neurology Director, [facility] Epilepsy [place], [facility], [place], [facility] Neurophysiology Lab chest 1 view portable / bedside (12/16/2017 9:15 PM) Specimen Performing Laboratory GE RIS Narrative FINAL REPORT INDICATION: concern for PNA COMPARISON: None TECHNIQUE: Single frontal view of the chest. FINDINGS: Limited by severe scoliosis and contractures. Lungs and pleura: Clear lungs. No effusion. Heart and mediastinum: Normal heart size. Unremarkable mediastinal contours. Osseous structures: No acute abnormality. Other: None. IMPRESSION: No acute intrathoracic abnormality. Signed: JR Lamb Robert MD Report Verified Date/Time:12/16/2017 21:41:51 Reading Location: [address] Reading Room Procedure Note Interface, External Ris In - 12/16/2017 9:44 PM PHYTOCHEMISTRY PROFESSOR FINAL REPORT INDICATION: concern for PNA COMPARISON: None TECHNIQUE: Single frontal view of the chest. FINDINGS: Limited by severe scoliosis and contractures. Lungs and pleura: Clear lungs. No effusion. Heart and mediastinum: Normal heart size. Unremarkable mediastinal contours. Osseous structures: No acute abnormality. Other: None. IMPRESSION: No acute intrathoracic abnormality. Signed: JR Lamb Robert MD Report Verified Date/Time: 12/16/2017 21:41:51 Reading Location: [address] Reading Room Urine culture (12/16/2017 8:45 PM) Component Value Ref Range Result Result >100,000 col/mL Citrobacter braakii (A) Specimen Performing Laboratory Urine - Urine, [place] [address] [address] Organism Antibiotic Method Susceptibility Citrobacter braakii Amikacin <=2: Susceptible Citrobacter braakii Aztreonam <=1: Susceptible Citrobacter braakii Cefepime <=1: Susceptible Citrobacter braakii Cefoxitin 32: Resistant Citrobacter braakii Ceftazidime <=1: Susceptible Citrobacter braakii Ceftriaxone <=1: Susceptible Citrobacter braakii Ertapenem <=0.5: Susceptible Citrobacter braakii Gentamicin >=16: Resistant Citrobacter braakii Levofloxacin >=8: Resistant Citrobacter braakii Meropenem <=0.25: Susceptible Citrobacter braakii Nitrofurantoin <=16: Susceptible Citrobacter braakii Piperacillin + Tazobactam 16: Susceptible Citrobacter braakii Tetracycline >=16: Resistant Citrobacter braakii Tobramycin 2: Susceptible Citrobacter braakii Trimethoprim + Sulfamethoxazole >=320: Resistant Vitamin B12 and Folate (12/16/2017 6:50 PM) Component Value Ref Range Vitamin B12 376 213 - 816 pg/mL Folate 15.8 >=7.0 ng/mL Specimen Performing Laboratory Blood [address] [address] TSH/Free T4 If Indicated (12/16/2017 6:50 PM) Component Value Ref Range TSH 3.15 0.35 - 4.94 uIU/mL Specimen Performing Laboratory Blood [address] [address] Iron, TIBC, % sat. (without ferritin) (12/16/2017 6:50 PM) Component Value Ref Range Iron 24 (L) 40 - 160 ug/dL TIBC 309 250 - 450 ug/dL Iron % Saturation 8 (L) 20 - 55 % Specimen Performing Laboratory Blood [address] [address] Vitamin D, 25-Hydroxy (12/16/2017 6:50 PM) Component Value Ref Range Vitamin D 25-Hydroxy 8.2 6.6 - 49.9 ng/mL Specimen Performing Laboratory Blood [address] [address] Narrative Effective 09/05/2017: Reference Range Change New: 6.6-49.9 ng/mL Previous: 13.0-47.8 ng/mL Recommended Vitamin D Target Range: 30.0-40.0 ng/mL Blood culture (12/16/2017 6:50 PM) Component Value Ref Range Result No growth in 5 days Specimen Performing Laboratory Blood - Arm, Right [address] [address] Urinalysis w/ Microscopic (12/16/2017 6:50 PM) Component Value Ref Range Color, UA Yellow Clarity, UA Clear Specific [place], UA 1.017 1.001 - 1.035 pH, UA 5.5 5.0 - 8.0 Protein, UA 50 mg/dL (A) Negative Glucose, UA Negative Negative Ketones, UA 40 mg/dL (A) Negative Bilirubin, UA Negative Negative Blood, UA Negative Negative Nitrite, UA Negative Negative Leukocytes, UA Moderate (A) Negative Urobilinogen, UA 0.2 0.2 - 1.0 mg/dL RBC, UA 1 /HPF WBC, UA 55 /HPF Bacteria, UA Occasional Mucus Many Hyaline Casts, UA 10 /LPF Specimen Source Urine, [place] Specimen Performing Laboratory Urine - Urine, [place] [address] [address] Ferritin (12/16/2017 6:50 PM) Component Value Ref Range Ferritin 36 5 - 275 ng/mL Specimen Performing Laboratory Blood [address] [address] after 03/07/2017
--- OUTSIDE RECORDS SUMMARY | 2018-03-08 03:50 | XMS REPORT ---
:1935 [facility] Address [address] [place] [address] [address] [place] [address] Care Team Providers Name Role Phone NICHOLE PEREZ Unavailable Unavailable Problems This patient has no known problems. Allergies, Adverse Reactions, Alerts This patient has no known allergies or adverse reactions. Medications This patient has no known medications. Results Test Description Test Time Test Comments Text Results Atomic Results Result Comments BLOOD CULTURE 2017-12-22 05:01:00 Test Item Value Reference Range Comments CULTURE (BEAKER) (test ewom=2973) No growth in 5 days [id number] 11:31:00 Test Item Value Reference Range Comments MAGNESIUM (BEAKER) (test 2.2 mg/dL 1.6-2.6 Specimen slightly hemolyzed upkw=666) BASIC METABOLIC [id number] 11:31:00 Test Item Value Reference Range Comments SODIUM (BEAKER) (test 139 meq/L 136-145 zdys=957) POTASSIUM (BEAKER) (test 4.0 meq/L 3.5-5.1 Specimen slightly wfef=417) hemolyzed CHLORIDE (BEAKER) (test 104 meq/L 98-107 fbjf=951) CO2 (BEAKER) (test 27 meq/L 22-29 epnq=156) BLOOD UREA NITROGEN 7 mg/dL 7-21 (BEAKER) (test nkmr=013) CREATININE (BEAKER) (test 0.60 mg/dL 0.57-1.25 Specimen slightly ixou=279) hemolyzed GLUCOSE RANDOM (BEAKER) 113 mg/dL 70-105 (test xcrr=551) CALCIUM (BEAKER) (test 8.3 mg/dL 8.4-10.2 becz=979) EGFR (BEAKER) (test 95 mL/min/1.73 sq m ESTIMATED GFR IS NOT awok=2736) ACCURATE CREATININE CLEARANCE IN PREDICTING GLOMERULAR FILTRATION RATE. ESTIMATED GFR IS NOT APPLICABLE FOR DIALYSIS PATIENTS. URINE [id number] 09:10:00 Test Item Value Reference Range Comments CULTURE (BEAKER) (test fzyp=0705) Amikacin (test code=1) Aztreonam (test code=32) Cefepime (test code=51) Cefoxitin (test code=68) Ceftazidime (test code=27) Ceftriaxone (test code=52) Ertapenem (test code=38) Gentamicin (test code=18) Levofloxacin (test code=22) Meropenem (test code=34) Nitrofurantoin (test code=23) Piperacillin + Tazobactam (test code=29) Tetracycline (test code=2) Tobramycin (test code=25) Trimethoprim + Sulfamethoxazole (test code=47) CULTURE (BEAKER) (test wpjv=4241) >100,000 col/mL Citrobacter braakii CBC W/PLT COUNT & AUTO [id number] 07:05:00 Test Item Value Reference Range Comments WHITE BLOOD CELL COUNT (BEAKER) (test pmbo=100) 7.5 K/ L 3.5-10.5 RED BLOOD CELL COUNT (BEAKER) (test moph=064) 4.30 M/ L 3.93-5.22 HEMOGLOBIN (BEAKER) (test pmht=447) 10.1 GM/DL 11.2-15.7 HEMATOCRIT (BEAKER) (test onfj=457) 32.6 % 34.1-44.9 MEAN CORPUSCULAR VOLUME (BEAKER) (test hluj=601) 75.8 fL 79.4-94.8 MEAN CORPUSCULAR HEMOGLOBIN (BEAKER) (test 23.5 pg 25.6-32.2 zbtx=685) MEAN CORPUSCULAR HEMOGLOBIN CONC (BEAKER) (test 31.0 GM/DL 32.2-35.5 brhd=047) RED CELL DISTRIBUTION WIDTH (BEAKER) (test 14.1 % 11.7-14.4 ciom=035) PLATELET COUNT (BEAKER) (test wbjp=510) 289 K/CU MM 150-450 MEAN PLATELET VOLUME (BEAKER) (test xaiw=187) 9.1 fL 9.4-12.3 NUCLEATED RED BLOOD CELLS (BEAKER) (test 0 /100 WBC 0-0 qiua=183) NEUTROPHILS RELATIVE PERCENT (BEAKER) (test 73 % gqxc=074) LYMPHOCYTES RELATIVE PERCENT (BEAKER) (test 15 % eabm=758) MONOCYTES RELATIVE PERCENT (BEAKER) (test 9 % bgxc=532) EOSINOPHILS RELATIVE PERCENT (BEAKER) (test 2 % ccry=685) BASOPHILS RELATIVE PERCENT (BEAKER) (test 0 % lxpo=675) NEUTROPHILS ABSOLUTE COUNT (BEAKER) (test 5.50 K/ L 1.56-6.13 zyjb=772) LYMPHOCYTES ABSOLUTE COUNT (BEAKER) (test 1.12 K/ L 1.18-3.74 wjkw=037) MONOCYTES ABSOLUTE COUNT (BEAKER) (test 0.67 K/ L 0.24-0.36 ajcm=288) EOSINOPHILS ABSOLUTE COUNT (BEAKER) (test 0.16 K/ L 0.04-0.36 idqc=971) BASOPHILS ABSOLUTE COUNT (BEAKER) (test 0.03 K/ L 0.01-0.08 jslj=390) IMMATURE GRANULOCYTES-RELATIVE PERCENT (BEAKER) 0 % 0-1 (test wnvl=9154) [id number] 08:15:00 Test Item Value Reference Range Comments MAGNESIUM (BEAKER) (test nxbj=972) 1.7 mg/dL 1.6-2.6 CBC W/PLT COUNT & AUTO [id number] 04:24:00 Test Item Value Reference Range Comments WHITE BLOOD CELL COUNT (BEAKER) (test wsze=191) 6.7 K/ L 3.5-10.5 RED BLOOD CELL COUNT (BEAKER) (test gedt=332) 3.69 M/ L 3.93-5.22 HEMOGLOBIN (BEAKER) (test clgr=131) 8.6 GM/DL 11.2-15.7 HEMATOCRIT (BEAKER) (test dnlq=803) 28.5 % 34.1-44.9 MEAN CORPUSCULAR VOLUME (BEAKER) (test kwyf=272) 77.2 fL 79.4-94.8 MEAN CORPUSCULAR HEMOGLOBIN (BEAKER) (test 23.3 pg 25.6-32.2 usxg=505) MEAN CORPUSCULAR HEMOGLOBIN CONC (BEAKER) (test 30.2 GM/DL 32.2-35.5 ykhk=433) RED CELL DISTRIBUTION WIDTH (BEAKER) (test 13.7 % 11.7-14.4 xsbo=072) PLATELET COUNT (BEAKER) (test snkt=098) 249 K/CU MM 150-450 MEAN PLATELET VOLUME (BEAKER) (test wkhb=988) 8.8 fL 9.4-12.3 NUCLEATED RED BLOOD CELLS (BEAKER) (test 0 /100 WBC 0-0 xluu=607) NEUTROPHILS RELATIVE PERCENT (BEAKER) (test 64 % pzws=414) LYMPHOCYTES RELATIVE PERCENT (BEAKER) (test 21 % vnjg=780) MONOCYTES RELATIVE PERCENT (BEAKER) (test 12 % lomp=306) EOSINOPHILS RELATIVE PERCENT (BEAKER) (test 3 % iopj=667) BASOPHILS RELATIVE PERCENT (BEAKER) (test 0 % jofo=386) NEUTROPHILS ABSOLUTE COUNT (BEAKER) (test 4.23 K/ L 1.56-6.13 ugss=943) LYMPHOCYTES ABSOLUTE COUNT (BEAKER) (test 1.39 K/ L 1.18-3.74 mjqm=384) MONOCYTES ABSOLUTE COUNT (BEAKER) (test 0.80 K/ L 0.24-0.36 rzvy=650) EOSINOPHILS ABSOLUTE COUNT (BEAKER) (test 0.20 K/ L 0.04-0.36 rocl=833) BASOPHILS ABSOLUTE COUNT (BEAKER) (test 0.02 K/ L 0.01-0.08 liec=642) IMMATURE GRANULOCYTES-RELATIVE PERCENT (BEAKER) 0 % 0-1 (test gdyx=7040) BASIC METABOLIC [id number] 04:19:00 Test Item Value Reference Range Comments SODIUM (BEAKER) (test 139 meq/L 136-145 bzeq=759) POTASSIUM (BEAKER) (test 3.1 meq/L 3.5-5.1 uzzy=544) CHLORIDE (BEAKER) (test 103 meq/L 98-107 lrlk=482) CO2 (BEAKER) (test 29 meq/L 22-29 qeqw=160) BLOOD UREA NITROGEN 12 mg/dL 7-21 (BEAKER) (test blzw=467) CREATININE (BEAKER) (test 0.65 mg/dL 0.57-1.25 hese=859) GLUCOSE RANDOM (BEAKER) 91 mg/dL 70-105 (test iktq=097) CALCIUM (BEAKER) (test 8.1 mg/dL 8.4-10.2 vdpn=414) EGFR (LADONNA) (test 87 mL/min/1.73 sq m ESTIMATED GFR IS NOT pnpe=4231) ACCURATE CREATININE CLEARANCE IN PREDICTING GLOMERULAR FILTRATION RATE. ESTIMATED GFR IS NOT APPLICABLE FOR DIALYSIS PATIENTS. EEG MONITORING WITH VIDEO RECORDING EACH 24 [id number] 16:19:00Addendum BeginsAddendum:Start time: 0645Stop time: 1613 There [...] 12/16/2017 to DATE OF REPORT 12/16/17 ACC: [id number] EE-[id number] Start time: 22: 43 Stop time: 06:45 ICD-10: G93.40 CPT Code: 12773 HISTORY: 82 yo F with history of [...] Fellow Gely Cleary MD, MS Epilepsy/Neurophysiology Attending [facility] METABOLIC [id number] 04:38:00 Test Item Value Reference Range Comments SODIUM (BEAKER) (test 142 meq/L 136-145 nqxf=341) POTASSIUM (BEAKER) (test 3.0 meq/L 3.5-5.1 ncps=164) CHLORIDE (BEAKER) (test 104 meq/L 98-107 qotw=276) CO2 (BEAKER) (test 31 meq/L 22-29 ldqp=852) BLOOD UREA NITROGEN 13 mg/dL 7-21 (BEAKER) (test eqrs=611) CREATININE (BEAKER) (test 0.64 mg/dL 0.57-1.25 xrhw=251) GLUCOSE RANDOM (BEAKER) 122 mg/dL 70-105 (test pvxh=918) CALCIUM (BEAKER) (test 8.1 mg/dL 8.4-10.2 cnup=650) EGFR (BEAKER) (test 89 mL/min/1.73 sq m ESTIMATED GFR IS NOT hcgv=5364) ACCURATE CREATININE CLEARANCE IN PREDICTING GLOMERULAR FILTRATION RATE. ESTIMATED GFR IS NOT APPLICABLE FOR DIALYSIS PATIENTS. CBC W/PLT COUNT & AUTO [id number] 04:03:00 Test Item Value Reference Range Comments WHITE BLOOD CELL COUNT (BEAKER) (test qtfk=340) 8.6 K/ L 3.5-10.5 RED BLOOD CELL COUNT (BEAKER) (test ehco=714) 3.94 M/ L 3.93-5.22 HEMOGLOBIN (BEAKER) (test xylo=591) 9.1 GM/DL 11.2-15.7 HEMATOCRIT (BEAKER) (test cauc=211) 30.3 % 34.1-44.9 MEAN CORPUSCULAR VOLUME (BEAKER) (test wmhp=988) 76.9 fL 79.4-94.8 MEAN CORPUSCULAR HEMOGLOBIN (BEAKER) (test 23.1 pg 25.6-32.2 jcmp=897) MEAN CORPUSCULAR HEMOGLOBIN CONC (BEAKER) (test 30.0 GM/DL 32.2-35.5 oqup=331) RED CELL DISTRIBUTION WIDTH (BEAKER) (test 13.4 % 11.7-14.4 fvjn=862) PLATELET COUNT (BEAKER) (test wijw=101) 287 K/CU MM 150-450 MEAN PLATELET VOLUME (BEAKER) (test ifac=106) 8.7 fL 9.4-12.3 NUCLEATED RED BLOOD CELLS (BEAKER) (test 0 /100 WBC 0-0 lxgj=992) NEUTROPHILS RELATIVE PERCENT (BEAKER) (test 74 % uxhh=206) LYMPHOCYTES RELATIVE PERCENT (BEAKER) (test 16 % pcjo=873) MONOCYTES RELATIVE PERCENT (BEAKER) (test 9 % mvuz=253) EOSINOPHILS RELATIVE PERCENT (BEAKER) (test 1 % qwff=429) BASOPHILS RELATIVE PERCENT (BEAKER) (test 0 % xvni=950) NEUTROPHILS ABSOLUTE COUNT (BEAKER) (test 6.35 K/ L 1.56-6.13 ydbx=697) LYMPHOCYTES ABSOLUTE COUNT (BEAKER) (test 1.35 K/ L 1.18-3.74 upzu=799) MONOCYTES ABSOLUTE COUNT (BEAKER) (test 0.80 K/ L 0.24-0.36 gtyq=912) EOSINOPHILS ABSOLUTE COUNT (BEAKER) (test 0.08 K/ L 0.04-0.36 xgci=572) BASOPHILS ABSOLUTE COUNT (BEAKER) (test 0.03 K/ L 0.01-0.08 lsze=728) IMMATURE GRANULOCYTES-RELATIVE PERCENT (BEAKER) 0 % 0-1 (test rfoa=1326) EEG AWAKE AND [id number] 23:06:00For STAT EEG- after 5 PM weekdays, weekends and holidays, page the on-call wheel adjuster Reason for exam:->seizure, AMSDATE OF TEST: 12/16/17DATE OF REPORT 12/16/17ACC: [id number]: 18-126Start time : 22:22Stop time: 22:43ICD-10: G93.40CPT Code: 16370 HISTORY: 82 yo F with history of [...] Fellow Nabila Sanchez M.D., FACNSProfessor of NeurologyDirector, [facility] EpilepsyOhiohealth Nelsonville [facility] CentererAden[facility], [facility] Neurophysiology Lab Electronically signed by: NABILA Foreman 12/16/2017 11:06 PMRAD, CHEST, 1 VIEW, NON [id number] 21:41: 00Reason for exam:->concern for PNAShould this [...] MDReport Verified Date/Time: 12/16/2017 21:41:51 Reading Location: [address] Reading Room [id number] 19:57:00 Test Item Value Reference Range Comments FERRITIN (BEAKER) (test dfye=535) 36 ng/mL 5-275 VITAMIN D, [id number] 19:57:00 Test Item Value Reference Range Comments VITAMIN D 25-OH (BEAKER) (test rtha=0849) 8.2 ng/mL 6.6-49.9 Effective 09/05/2017: Reference Range ChangeNew: 6.6-49.9 ng/mL Previous: 13.0 -47.8 ng/mLRecommended Vitamin D Target Range: 30.0-40.0 ng/mLTSH/FREE T4 IF [id number] 19:57:00 Test Item Value Reference Range Comments THYROID STIMULATING HORMONE (BEAKER) (test 3.15 uIU/mL 0.35-4.94 hxku=360) VITAMIN B12 AND [id number] 19:57:00 Test Item Value Reference Range Comments VITAMIN B12 (BEAKER) (test gvce=591) 376 pg/mL 213-816 FOLATE (BEAKER) (test zrrr=099) 15.8 ng/mL >=7.0 URINALYSIS W/ [id number] 19:28:00 Test Item Value Reference Range Comments COLOR (BEAKER) (test woay=202) Yellow CLARITY (BEAKER) (test sgcw=098) Clear SPECIFIC GRAVITY UA (BEAKER) (test nilh=916) 1.017 1.001-1.035 PH UA (BEAKER) (test pdws=422) 5.5 5.0-8.0 PROTEIN UA (BEAKER) (test eipf=102) 50 mg/dL Negative GLUCOSE UA (BEAKER) (test vlat=595) Negative Negative KETONES UA (BEAKER) (test uesb=749) 40 mg/dL Negative BILIRUBIN UA (BEAKER) (test ggvb=620) Negative Negative BLOOD UA (BEAKER) (test kkhd=791) Negative Negative NITRITE UA (BEAKER) (test ogyr=030) Negative Negative LEUKOCYTE ESTERASE UA (BEAKER) (test yxhm=785) Moderate Negative UROBILINOGEN UA (BEAKER) (test zlkw=120) 0.2 mg/dL 0.2-1.0 RBC UA (BEAKER) (test mzhx=776) 1 /HPF WBC UA (BEAKER) (test fixh=920) 55 /HPF BACTERIA (BEAKER) (test ravb=364) Occasional MUCUS (BEAKER) (test dklt=7308) Many HYALINE CASTS (BEAKER) (test dqtp=507) 10 /LPF SOURCE(BEAKER) (test wlsb=3186) Urine, [place] IRON, TIBC, % SAT. (WITHOUT FERRITIN)2017-12-16 19:21:00 Test Item Value Reference Range Comments IRON (BEAKER) (test yzdo=978) 24 ug/dL 40-160 TOTAL IRON BINDING CAPACITY (BEAKER) (test 309 ug/dL 250-450 lqdf=867) IRON % SATURATION (2) (BEAKER) (test fdbe=2194) 8 % 20-55 BASIC METABOLIC [id number] 19:20:00 Test Item Value Reference Range Comments SODIUM (BEAKER) (test 141 meq/L 136-145 jppe=398) POTASSIUM (BEAKER) (test 4.0 meq/L 3.5-5.1 Specimen moderately ccch=522) hemolyzed CHLORIDE (BEAKER) (test 102 meq/L 98-107 hyfj=872) CO2 (BEAKER) (test 30 meq/L 22-29 danp=781) BLOOD UREA NITROGEN 12 mg/dL 7-21 (BEAKER) (test azvc=042) CREATININE (BEAKER) (test 0.66 mg/dL 0.57-1.25 Specimen moderately gcsy=834) hemolyzed GLUCOSE RANDOM (BEAKER) 102 mg/dL 70-105 (test cfnl=980) CALCIUM (BEAKER) (test 8.3 mg/dL 8.4-10.2 lwju=590) EGFR (BEAKER) (test 86 mL/min/1.73 sq m ESTIMATED GFR IS NOT dvxa=2129) ACCURATE CREATININE CLEARANCE IN PREDICTING GLOMERULAR FILTRATION RATE. ESTIMATED GFR IS NOT APPLICABLE FOR DIALYSIS PATIENTS. CBC W/PLT COUNT & AUTO [id number] 19:06:00 Test Item Value Reference Range Comments WHITE BLOOD CELL COUNT (BEAKER) (test kllb=597) 8.2 K/ L 3.5-10.5 RED BLOOD CELL COUNT (BEAKER) (test jrhb=643) 4.05 M/ L 3.93-5.22 HEMOGLOBIN (BEAKER) (test odjz=680) 9.4 GM/DL 11.2-15.7 HEMATOCRIT (BEAKER) (test prxj=111) 30.9 % 34.1-44.9 MEAN CORPUSCULAR VOLUME (BEAKER) (test qkup=210) 76.3 fL 79.4-94.8 MEAN CORPUSCULAR HEMOGLOBIN (BEAKER) (test 23.2 pg 25.6-32.2 dcmt=135) MEAN CORPUSCULAR HEMOGLOBIN CONC (BEAKER) (test 30.4 GM/DL 32.2-35.5 pkxh=000) RED CELL DISTRIBUTION WIDTH (BEAKER) (test 13.6 % 11.7-14.4 ljkf=685) PLATELET COUNT (BEAKER) (test mzmy=855) 301 K/CU MM 150-450 MEAN PLATELET VOLUME (BEAKER) (test tnpj=074) 8.7 fL 9.4-12.3 NUCLEATED RED BLOOD CELLS (BEAKER) (test 0 /100 WBC 0-0 oled=090) NEUTROPHILS RELATIVE PERCENT (BEAKER) (test 78 % nfan=013) LYMPHOCYTES RELATIVE PERCENT (BEAKER) (test 13 % afiq=398) MONOCYTES RELATIVE PERCENT (BEAKER) (test 9 % cinh=842) EOSINOPHILS RELATIVE PERCENT (BEAKER) (test 1 % rpta=067) BASOPHILS RELATIVE PERCENT (BEAKER) (test 0 % cmzy=322) NEUTROPHILS ABSOLUTE COUNT (BEAKER) (test 6.35 K/ L 1.56-6.13 cbda=681) LYMPHOCYTES ABSOLUTE COUNT (BEAKER) (test 1.06 K/ L 1.18-3.74 yogj=358) MONOCYTES ABSOLUTE COUNT (BEAKER) (test 0.70 K/ L 0.24-0.36 ohme=457) EOSINOPHILS ABSOLUTE COUNT (BEAKER) (test 0.04 K/ L 0.04-0.36 yngd=375) BASOPHILS ABSOLUTE COUNT (BEAKER) (test 0.03 K/ L 0.01-0.08 kjhw=991) IMMATURE GRANULOCYTES-RELATIVE PERCENT (BEAKER) 0 % 0-1 (test ivfn=8969)
[2018-03-08] MEDS ORDERED: HYDROCODONE/APAP 10/325 TAB ONE (04:00)
--- NOTE | 2018-03-08 04:05 | EDPHYS ---
Physician Documentation [facility] Name: Gloria Armenta Age: 82 yrs Sex: Female : 1935 Arrival Date: 03/08/2018 Time: 03:48 Bed 6 Private MD: Thang Montero ED Physician Ronny Arguelles HPI: 03/08 03:58 This 82 yrs old Female presents to ER via Ambulatory with complaints of Back juani Pain, Knee Pain. 03:58 The patient presents with pain that is acute, with no known mechanism of injury, that juani is chronic, and decreased range of motion. The symptoms are located in the low back. Onset: The symptoms/episode began/occurred 2 day(s) ago. The pain does not radiate. Associated signs and symptoms: The patient has no apparent associated signs or symptoms. Severity of symptoms: At their worst the symptoms were moderate, in the emergency department the symptoms are unchanged. The patient has not experienced similar symptoms in the past. Historical: - Allergies: 04:00 Aspirin; ao 04:00 Cefaclor; ao 04:00 Celecoxib; ao 04:00 Cephalexin; ao 04:00 CEPHALOSPORINS; ao 04:00 Chlorpromazine; ao 04:00 chlorpromazine HCl; ao 04:00 esomeprazole mag; ao 04:00 Ketorolac; ao 04:00 ketorolac tromethamine; ao 04:00 Meperidine; ao 04:00 Morphine; ao 04:00 prochlorperazine Edisylate; ao 04:00 Prochlorperazine Maleate; ao 04:00 Rofecoxib; ao 04:00 Sulfa (Sulfonamide Antibiotics); ao 04:00 SUMATRIPTAN; ao 04:00 Sumatriptan Succinate; ao - Home Meds: 04:00 high blood pressure [Active]; ao - PMHx: 04:00 Chronic headaches; Chronic pain; ao - PSHx: 04:00 Knee surgery; ao - Immunization history:: Adult Immunizations up to date. - Social history:: Smoking status: Patient/guardian denies using tobacco, Patient/guardian denies using alcohol, street drugs. - Family history:: not pertinent. ROS: 03:58 Constitutional: Negative for fever, chills, and weight loss, Eyes: Negative for injury, juani pain, redness, and discharge, ENT: Negative for injury, pain, and discharge, Neck: Negative for injury, pain, and swelling, Cardiovascular: Negative for chest pain, palpitations, and edema, Respiratory: Negative for shortness of breath, cough, wheezing, and pleuritic chest pain, Abdomen/GI: Negative for abdominal pain, nausea, vomiting, diarrhea, and constipation, : Negative for injury, bleeding, discharge, and swelling, Skin: Negative for injury, rash, and discoloration, Neuro: Negative for headache, weakness, numbness, tingling, and seizure, Psych: Negative for depression, anxiety, suicide ideation, homicidal ideation, and hallucinations, Allergy/Immunology: Negative for hives, rash, and allergies, Endocrine: Negative for neck swelling, polydipsia, polyuria, polyphagia, and marked weight changes. 03:58 Back: Positive for decreased range of motion, pain at rest. 03:58 MS/extremity: Positive for decreased range of motion, pain, of the right knee. Exam: 03:58 Constitutional: This is a well developed, well nourished patient who is awake, alert, juani and in no acute distress. Head/Face: Normocephalic, atraumatic. Eyes: Pupils equal round and reactive to light, extra-ocular motions intact. Lids and lashes normal. Conjunctiva and sclera are non-icteric and not injected. Cornea within normal limits. Periorbital areas with no swelling, redness, or edema. ENT: Nares patent. No nasal discharge, no septal abnormalities noted. Tympanic membranes are normal and external auditory canals are clear. Oropharynx with no redness, swelling, or masses, exudates, or evidence of obstruction, uvula midline. Mucous membranes moist. Neck: Trachea midline, no thyromegaly or masses palpated, and no cervical lymphadenopathy. Supple, full range of motion without nuchal rigidity, or vertebral point tenderness. No Meningismus. Chest/axilla: Normal chest wall appearance and motion. Nontender with no deformity. No lesions are appreciated. Cardiovascular: Regular rate and rhythm with a normal S1 and S2. No gallops, murmurs, or rubs. Normal PMI, no JVD. No pulse deficits. Respiratory: Lungs have equal breath sounds bilaterally, clear to auscultation and percussion. No rales, rhonchi or wheezes noted. No increased work of breathing, no retractions or nasal flaring. Abdomen/GI: Soft, non-tender, with normal bowel sounds. No distension or tympany. No guarding or rebound. No evidence of tenderness throughout. Female : Normal external genitalia. Skin: Warm, dry with normal turgor. Normal color with no rashes, no lesions, and no evidence of cellulitis. Neuro: Awake and alert, GCS 15, oriented to person, place, time, and situation. Cranial nerves II-XII grossly intact. Motor strength 5/5 in all extremities. Sensory grossly intact. Cerebellar exam normal. Normal gait. Psych: Awake, alert, with orientation to person, place and time. Behavior, mood, and affect are within normal limits. 03:58 Back: pain, that is mild, that is moderate, ROM is painful, scoliosis CVA tenderness, is absent, vertebral tenderness, is not appreciated, muscle spasm, is appreciated in the left low back, left mid back, right mid back and right low back. Vital Signs: 04:01 BP 187 / 77; Pulse 90; Resp 18; Temp 98.0; Pulse Ox 96% on R/A; Weight 54.43 kg (R); ao Height 5 ft. 9 in. (175.26 cm) (R); Pain 10/10; 04:20 BP 152 / 71; Pulse 88; Resp 18; Pulse Ox 98% on R/A; ao 04:01 Body Mass Index 17.72 (54.43 kg, 175.26 cm) ao MDM: 03:53 Patient medically screened. [facility] 03:58 Data reviewed: vital signs, nurses notes. juani Administered Medications: 04:04 Drug: [place] 10 mg-325 mg 1 tabs Route: PO; tl2 04:04 Follow up: Response: Medication administered at discharge. ao Disposition: 03/08/18 04:03 Discharged to Home. Impression: Pain in right knee, Low back pain. - Condition is Stable. - Discharge Instructions: Back Pain, Adult, Chronic Back Pain, Musculoskeletal Pain, Knee Pain, Back Injury Prevention, Nbix-ta-Qakj, Back Pain, Adult, Ficp-pm-Gbly. - Prescriptions for Tylenol- Codeine #3 300-30 mg Oral Tablet - take 2 tablets by ORAL route every 6 hours As needed; 26 tablet. - Medication Reconciliation Form, Thank You Letter, Antibiotic Education, Prescription Opioid Use form. - Follow up: Thang Montero DO; When: 2 - 3 days; Reason: Recheck today's complaints, Continuance of care, Re-evaluation by your physician. Follow up: Rachid Munoz DO; When: 2 - 3 days; Reason: Recheck today's complaints, Re-evaluation by your physician. - Problem is new. - Symptoms have improved. Signatures: Ronny Arguelles MD MD cha Ortiz, Alex RN RN Adia Lujan RN RN tl2
--- NOTE | 2018-03-08 04:05 | ER ---
Nurse's Notes [facility] Name: Gloria Armenta Age: 82 yrs Sex: Female : 1935 Arrival Date: 03/08/2018 Time: 03:48 Bed 6 Private MD: Thang Montero Diagnosis: Pain in right knee;Low back pain Presentation: 03/08 03:57 Presenting complaint: Patient states: "I have pain in my right knee and my back" ao Patient reported pain level 10/10. Transition of care: patient was not received from another setting of care. Onset of symptoms was March 08, 2018. Care prior to arrival: None. 03:57 Method Of Arrival: Ambulatory ao 03:57 Acuity: AURELIO 4 ao Triage Assessment: 04:02 General: Appears in no apparent distress. uncomfortable, Behavior is anxious. Pain: ao Complains of pain in back and right leg. EENT: No signs and/or symptoms were reported regarding the EENT system. Neuro: Level of Consciousness is awake, alert, obeys commands, Oriented to person, place, time, situation, Appropriate for age Moves all extremities. Speech is normal. Cardiovascular: Patient's skin is warm and dry. Respiratory: Airway is patent Respiratory effort is even, unlabored, Respiratory pattern is regular, symmetrical. GI: Abdomen is non-distended. : No signs and/or symptoms were reported regarding the genitourinary system. Derm: No signs and/or symptoms reported regarding the dermatologic system. Musculoskeletal: Circulation, motion, and sensation intact. Range of motion: intact in all extremities. Historical: - Allergies: 04:00 Aspirin; ao 04:00 Cefaclor; ao 04:00 Celecoxib; ao 04:00 Cephalexin; ao 04:00 CEPHALOSPORINS; ao 04:00 Chlorpromazine; ao 04:00 chlorpromazine HCl; ao 04:00 esomeprazole mag; ao 04:00 Ketorolac; ao 04:00 ketorolac tromethamine; ao 04:00 Meperidine; ao 04:00 Morphine; ao 04:00 prochlorperazine Edisylate; ao 04:00 Prochlorperazine Maleate; ao 04:00 Rofecoxib; ao 04:00 Sulfa (Sulfonamide Antibiotics); ao 04:00 SUMATRIPTAN; ao 04:00 Sumatriptan Succinate; ao - Home Meds: 04:00 high blood pressure [Active]; ao - PMHx: 04:00 Chronic headaches; Chronic pain; ao - PSHx: 04:00 Knee surgery; ao - Immunization history:: Adult Immunizations up to date. - Social history:: Smoking status: Patient/guardian denies using tobacco, Patient/guardian denies using alcohol, street drugs. - Family history:: not pertinent. Screenin:03 Abuse screen: Denies threats or abuse. Denies injuries from another. Nutritional ao screening: No deficits noted. Tuberculosis screening: No symptoms or risk factors identified. Fall Risk No fall in past 12 months (0 pts). Ambulatory Aid- None/Bed Rest/Nurse Assist (0 pts). Gait- Weak (10 pts.). Assessment: 04:03 General: See triage note. ao Vital Signs: 04:01 BP 187 / 77; Pulse 90; Resp 18; Temp 98.0; Pulse Ox 96% on R/A; Weight 54.43 kg (R); ao Height 5 ft. 9 in. (175.26 cm) (R); Pain 10/10; 04:20 BP 152 / 71; Pulse 88; Resp 18; Pulse Ox 98% on R/A; ao 04:01 Body Mass Index 17.72 (54.43 kg, 175.26 cm) ao ED Course: 03:48 Patient arrived in ED. do 03:48 Thang Montero DO is Private Physician. do 03:51 Kelton Lizarraga, NAT is Primary Nurse. ao 03:53 Ronny Arguelles MD is Attending Physician. juani 03:58 Triage completed. ao 04:01 Thang Montero DO is Referral Physician. juani 04:01 Arm band placed on right wrist. Patient placed in an exam room, on a stretcher, on ao oxygen, Patient notified of wait time. 04:02 Rachid Muonz DO is Referral Physician. juani 04:03 Patient has correct armband on for positive identification. Pulse ox on. NIBP on. ao 04:19 No provider procedures requiring assistance completed. Patient did not have IV access ao during this emergency room visit. Administered Medications: 04:04 Drug: [place] 10 mg-325 mg 1 tabs Route: PO; tl2 04:04 Follow up: Response: Medication administered at discharge. ao Outcome: 04:03 Discharge ordered by . juani 04:20 Discharged to home via wheelchair. ao 04:20 Condition: stable 04:20 Discharge instructions given to patient, Instructed on discharge instructions, follow up and referral plans. Demonstrated understanding of instructions, follow-up care, medications, Prescriptions given X 1. 04:20 Patient left the ED. ao Signatures: Ronny Arguelles MD MD cha Ortiz, Alex RN RN Khadijah Gupta Taylor, RN RN tl2
[2018-03-08 04:25] VITALS: TEMP 98
[2018-03-08 04:26] VITALS: BP 152/71; O2SAT 98
== END 2018-03-08 04:20 | disposition home or self-care (01) ==
LOC: ER 03:45
DX: M54.5 Low back pain (principal); M25.561 Pain in right knee; I10 Essential (primary) hypertension; Z88.6 Allergy status to analgesic agent; Z88.1 Allergy status to other antibiotic agents; Z88.2 Allergy status to sulfonamides
CPT/HCPCS: 99284

== ENCOUNTER 2018-03-13 04:32 | Emergency (ER) | payer OTHER, SELFPAY ==
--- OUTSIDE RECORDS SUMMARY | 2018-03-13 04:34 | XMS REPORT | Clinical Summary ---
:1935 Author Organization [facility] Address [address] [place] [address] Phone Care Team Providers Name Role Phone [...] type;Hypothyroidism, unspecified type;Acute cystitis without hematuria after 03/12/2017 Social History Tobacco Use Types Packs/Day Years Used Date Never Smoker Smokeless Tobacco: Never Used Sex Assigned at Date Recorded Not on file Last Filed Vital Signs Vital Sign Reading Time Taken Blood Pressure 157/77 12/20/2017 11:34 AM [employer] Pulse 76 12/20/2017 11:34 AM [employer] Temperature 36.5 C (97.7 F) 12/20/2017 11:34 AM [employer] Respiratory Rate 18 12/20/2017 11:34 AM [employer] Oxygen Saturation 98% 12/20/2017 11:34 AM [employer] Inhaled Oxygen Concentration - - Weight 54 kg (119 lb) 12/20/2017 5:00 AM [employer] Height 157.5 cm (5' 2") 12/16/2017 5:25 PM [employer] Body Mass Index 21.77 12/20/2017 5:00 AM [employer] Plan of Treatment Not on file Results RHYTHM STRIP - SCAN (12/21/2017 2:41 PM)Magnesium (12/19/2017 7:31 AM)Only the most recent of2 resultswithin the time period is included. Component Value Ref Range Magnesium 2.2Comment: Specimen slightly hemolyzed 1.6 - 2.6 mg/dL Specimen Performing Laboratory Blood - Line, Venous [facility] [address] [address] Basic Metabolic Panel (12/19/2017 7:31 AM)Only the [...] Specimen Performing Laboratory Blood - Line, Venous [address] [address] CBC with platelet count + automated diff [...] Specimen Performing Laboratory Blood - Line, Venous [address] [address] CBC with platelet count + automated diff (12/19/2017 6:58 AM)Only the most recent of4 resultswithin the time period is included. Specimen Performing Laboratory Blood Narrative The following orders were created for panel order CBC with platelet count + automated diff. Procedure Abnormality Status --------- ------ CBC with platelet count ...[[id number]]AbnormalFinal result Please view results for these tests [...] to 12/17/2017 DATE OF REPORT 12/16/17 ACC: [id number] Start time: 22:43 Stop time: 06:45 ICD-10: G93.40 CPT Code: 31919 HISTORY: 82 yo F with history of chronic pain, chronic Lozano, osteoporosis, HTN, who was transferred from [facility] for AMS and seizures. UDS + (patient [...] External Ris In - 12/17/2017 4:19 PM [employer] Addendum Begins Addendum: Start time: 0645 Stop [...] to 12/17/2017 DATE OF REPORT 12/16/17 ACC: [id number] Start time: 22:43 Stop time: 06:45 ICD-10: G93.40 CPT Code: 34405 HISTORY: 82 yo F with history of [...] TEST: 12/16/17 DATE OF REPORT 12/16/17 ACC: [id number] [id number] Start time: 22:22 Stop time: 22:43 ICD-10: G93.40 CPT Code: 05615 HISTORY: 82 yo F with history of [...] Galeas MD Epilepsy Fellow Nabila Sanchez M.D., [facility] Professor of Neurology Director, [facility] Epilepsy [place], [facility] Neurophysiology Lab Procedure Note Interface, External Ris In - 12/16/2017 11:06 PM [employer] DATE OF TEST: 12/16/17 DATE OF REPORT 12/16/17 ACC: [id number] Start time: 22:22 Stop time: 22:43 ICD-10: G93.40 CPT Code: 25609 HISTORY: 82 yo F with history of chronic pain, chronic Lozano, osteoporosis, HTN, who was transferred from [facility] for AMS and seizures. UDS + (patient [...] Galeas MD Epilepsy Fellow Nabila Sanchez M.D., [facility] Professor of Neurology Director, [facility]ile[facility] [place], [facility] Neurophysiology Lab chest 1 view portable / [...] MD Report Verified Date/Time:12/16/2017 21:41:51 Reading Location: [address] Reading Room Procedure Note Interface, External Ris In - 12/16/2017 9:44 PM [employer] FINAL REPORT INDICATION: concern for PNA COMPARISON: None TECHNIQUE: Single frontal view of the chest. FINDINGS: Limited by severe scoliosis and contractures. Lungs and pleura: Clear lungs. No effusion. Heart and mediastinum: Normal heart size. Unremarkable mediastinal contours. Osseous structures: No acute abnormality. Other: None. IMPRESSION: No acute intrathoracic abnormality. Signed: JR Lamb Robert MD Report Verified Date/Time: 12/16/2017 21:41:51 Reading Location: [address] Reading Room Urine culture (12/16/2017 8:45 PM) Component Value Ref Range Result Result >100,000 col/mL Citrobacter braakii (A) Specimen Performing Laboratory Urine - Urine, [place] [address] [address] Organism Antibiotic Method Susceptibility Citrobacter braakii Amikacin [...] 15.8 >=7.0 ng/mL Specimen Performing Laboratory Blood [address] [address] TSH/Free T4 If Indicated (12/16/2017 6:50 PM) Component Value Ref Range TSH 3.15 0.35 - 4.94 uIU/mL Specimen Performing Laboratory Blood [address] [address] Iron, TIBC, % sat. (without ferritin) (12/16/2017 6:50 PM) Component Value Ref Range Iron 24 (L) 40 - 160 ug/dL TIBC 309 250 - 450 ug/dL Iron % Saturation 8 (L) 20 - 55 % Specimen Performing Laboratory Blood [address] [address] Vitamin D, 25-Hydroxy (12/16/2017 6:50 PM) Component Value Ref Range Vitamin D 25-Hydroxy 8.2 6.6 - 49.9 ng/mL Specimen Performing Laboratory Blood [address] [address] Narrative Effective 09/05/2017: Reference Range Change New: 6.6-49.9 ng/mL Previous: 13.0-47.8 ng/mL Recommended Vitamin D Target Range: 30.0-40.0 ng/mL Blood culture (12/16/2017 6:50 PM) Component Value Ref Range Result No growth in 5 days Specimen Performing Laboratory Blood - Arm, Right [address] [address] Urinalysis w/ Microscopic (12/16/2017 6:50 PM) Component Value Ref Range Color, UA Yellow Clarity, UA Clear Specific [place], UA 1.017 1.001 - 1.035 pH, UA [...] Specimen Performing Laboratory Urine - Urine, [place] [address] [address] Ferritin (12/16/2017 6:50 PM) Component Value Ref Range Ferritin 36 5 - 275 ng/mL Specimen Performing Laboratory Blood [address] [address] after 03/12/2017
--- OUTSIDE RECORDS SUMMARY | 2018-03-13 04:34 | XMS REPORT ---
:1935 Author Organization [facility] Address [address] [place] [address] [address] [place] [address] Care Team Providers Name Role Phone NICHOLE PEREZ Unavailable Unavailable Problems This patient has no known problems. Allergies, Adverse Reactions, Alerts This patient has no known allergies or adverse reactions. Medications This patient has no known medications. Results Test Description Test Time Test Comments Text Results Atomic Results Result Comments BLOOD CULTURE 2017-12-22 05:01:00 Test Item Value Reference Range Comments CULTURE (BEAKER) (test wwgm=0734) No growth in 5 days [id number] 11:31:00 Test Item Value Reference Range Comments MAGNESIUM (BEAKER) (test 2.2 mg/dL 1.6-2.6 Specimen slightly hemolyzed xjfp=754) BASIC METABOLIC [id number] 11:31:00 Test Item Value Reference Range Comments SODIUM (BEAKER) (test 139 meq/L 136-145 imjm=598) POTASSIUM (BEAKER) (test 4.0 meq/L 3.5-5.1 Specimen slightly qcaf=013) hemolyzed CHLORIDE (BEAKER) (test 104 meq/L 98-107 wlsw=348) CO2 (BEAKER) (test 27 meq/L 22-29 cmev=927) BLOOD UREA NITROGEN 7 mg/dL 7-21 (BEAKER) (test bmie=520) CREATININE (BEAKER) (test 0.60 mg/dL 0.57-1.25 Specimen slightly ixmx=403) hemolyzed GLUCOSE RANDOM (BEAKER) 113 mg/dL 70-105 (test udyo=069) CALCIUM (BEAKER) (test 8.3 mg/dL 8.4-10.2 zgme=263) EGFR (BEAKER) (test 95 mL/min/1.73 sq m ESTIMATED GFR IS NOT apwg=1379) ACCURATE CREATININE CLEARANCE IN PREDICTING GLOMERULAR FILTRATION RATE. ESTIMATED GFR IS NOT APPLICABLE FOR DIALYSIS PATIENTS. URINE [id number] 09:10:00 Test Item Value Reference Range Comments CULTURE (BEAKER) (test dqai=3943) Amikacin (test code=1) Aztreonam (test code=32) Cefepime (test code=51) Cefoxitin (test code=68) Ceftazidime (test code=27) Ceftriaxone (test code=52) Ertapenem (test code=38) Gentamicin (test code=18) Levofloxacin (test code=22) Meropenem (test code=34) Nitrofurantoin (test code=23) Piperacillin + Tazobactam (test code=29) Tetracycline (test code=2) Tobramycin (test code=25) Trimethoprim + Sulfamethoxazole (test code=47) CULTURE (BEAKER) (test asdf=4075) >100,000 col/mL Citrobacter braakii CBC W/PLT COUNT & AUTO [id number] 07:05:00 Test Item Value Reference Range Comments WHITE BLOOD CELL COUNT (BEAKER) (test syuu=438) 7.5 K/ L 3.5-10.5 RED BLOOD CELL COUNT (BEAKER) (test zpxa=396) 4.30 M/ L 3.93-5.22 HEMOGLOBIN (BEAKER) (test ikma=696) 10.1 GM/DL 11.2-15.7 HEMATOCRIT (BEAKER) (test yxdt=217) 32.6 % 34.1-44.9 MEAN CORPUSCULAR VOLUME (BEAKER) (test psgq=811) 75.8 fL 79.4-94.8 MEAN CORPUSCULAR HEMOGLOBIN (BEAKER) (test 23.5 pg 25.6-32.2 lsat=427) MEAN CORPUSCULAR HEMOGLOBIN CONC (BEAKER) (test 31.0 GM/DL 32.2-35.5 nkcq=403) RED CELL DISTRIBUTION WIDTH (BEAKER) (test 14.1 % 11.7-14.4 wwmt=536) PLATELET COUNT (BEAKER) (test mgne=221) 289 K/CU MM 150-450 MEAN PLATELET VOLUME (BEAKER) (test yjrt=598) 9.1 fL 9.4-12.3 NUCLEATED RED BLOOD CELLS (BEAKER) (test 0 /100 WBC 0-0 abzg=350) NEUTROPHILS RELATIVE PERCENT (BEAKER) (test 73 % fbkg=283) LYMPHOCYTES RELATIVE PERCENT (BEAKER) (test 15 % wlom=349) MONOCYTES RELATIVE PERCENT (BEAKER) (test 9 % awmi=088) EOSINOPHILS RELATIVE PERCENT (BEAKER) (test 2 % ljgj=943) BASOPHILS RELATIVE PERCENT (BEAKER) (test 0 % lgtm=827) NEUTROPHILS ABSOLUTE COUNT (BEAKER) (test 5.50 K/ L 1.56-6.13 tcuq=692) LYMPHOCYTES ABSOLUTE COUNT (BEAKER) (test 1.12 K/ L 1.18-3.74 aptw=915) MONOCYTES ABSOLUTE COUNT (BEAKER) (test 0.67 K/ L 0.24-0.36 zeel=318) EOSINOPHILS ABSOLUTE COUNT (BEAKER) (test 0.16 K/ L 0.04-0.36 ggej=981) BASOPHILS ABSOLUTE COUNT (BEAKER) (test 0.03 K/ L 0.01-0.08 pxai=127) IMMATURE GRANULOCYTES-RELATIVE PERCENT (BEAKER) 0 % 0-1 (test ictz=5819) [id number] 08:15:00 Test Item Value Reference Range Comments MAGNESIUM (BEAKER) (test ydbd=039) 1.7 mg/dL 1.6-2.6 CBC W/PLT COUNT & AUTO [id number] 04:24:00 Test Item Value Reference Range Comments WHITE BLOOD CELL COUNT (BEAKER) (test xirs=156) 6.7 K/ L 3.5-10.5 RED BLOOD CELL COUNT (BEAKER) (test chas=530) 3.69 M/ L 3.93-5.22 HEMOGLOBIN (BEAKER) (test ffpr=450) 8.6 GM/DL 11.2-15.7 HEMATOCRIT (BEAKER) (test msrm=168) 28.5 % 34.1-44.9 MEAN CORPUSCULAR VOLUME (BEAKER) (test sjut=010) 77.2 fL 79.4-94.8 MEAN CORPUSCULAR HEMOGLOBIN (BEAKER) (test 23.3 pg 25.6-32.2 sqox=791) MEAN CORPUSCULAR HEMOGLOBIN CONC (BEAKER) (test 30.2 GM/DL 32.2-35.5 ljbu=400) RED CELL DISTRIBUTION WIDTH (BEAKER) (test 13.7 % 11.7-14.4 klwn=281) PLATELET COUNT (BEAKER) (test bmsi=599) 249 K/CU MM 150-450 MEAN PLATELET VOLUME (BEAKER) (test utsr=047) 8.8 fL 9.4-12.3 NUCLEATED RED BLOOD CELLS (BEAKER) (test 0 /100 WBC 0-0 gocv=063) NEUTROPHILS RELATIVE PERCENT (BEAKER) (test 64 % zoud=085) LYMPHOCYTES RELATIVE PERCENT (BEAKER) (test 21 % fnyd=546) MONOCYTES RELATIVE PERCENT (BEAKER) (test 12 % szsy=116) EOSINOPHILS RELATIVE PERCENT (BEAKER) (test 3 % teki=076) BASOPHILS RELATIVE PERCENT (BEAKER) (test 0 % jcwz=281) NEUTROPHILS ABSOLUTE COUNT (BEAKER) (test 4.23 K/ L 1.56-6.13 jyec=054) LYMPHOCYTES ABSOLUTE COUNT (BEAKER) (test 1.39 K/ L 1.18-3.74 btgu=893) MONOCYTES ABSOLUTE COUNT (BEAKER) (test 0.80 K/ L 0.24-0.36 ipfi=974) EOSINOPHILS ABSOLUTE COUNT (BEAKER) (test 0.20 K/ L 0.04-0.36 vkoq=256) BASOPHILS ABSOLUTE COUNT (BEAKER) (test 0.02 K/ L 0.01-0.08 iinm=606) IMMATURE GRANULOCYTES-RELATIVE PERCENT (BEAKER) 0 % 0-1 (test hpjc=8732) BASIC METABOLIC [id number] 04:19:00 Test Item Value Reference Range Comments SODIUM (BEAKER) (test 139 meq/L 136-145 xamn=800) POTASSIUM (BEAKER) (test 3.1 meq/L 3.5-5.1 wcsj=311) CHLORIDE (BEAKER) (test 103 meq/L 98-107 ifsc=376) CO2 (BEAKER) (test 29 meq/L 22-29 uyaz=882) BLOOD UREA NITROGEN 12 mg/dL 7-21 (BEAKER) (test oolp=129) CREATININE (BEAKER) (test 0.65 mg/dL 0.57-1.25 svio=375) GLUCOSE RANDOM (BEAKER) 91 mg/dL 70-105 (test mjuj=692) CALCIUM (BEAKER) (test 8.1 mg/dL 8.4-10.2 cosd=092) EGFR (LADONNA) (test 87 mL/min/1.73 sq m ESTIMATED GFR IS NOT xpgg=1254) ACCURATE CREATININE CLEARANCE IN PREDICTING GLOMERULAR FILTRATION RATE. ESTIMATED GFR IS NOT APPLICABLE FOR DIALYSIS PATIENTS. EEG MONITORING WITH VIDEO RECORDING EACH 24 [id number] 16:19:00Addendum BeginsAddendum:Start time: 0645Stop time: 1613 There [...] 12/16/2017 to DATE OF REPORT 12/16/17 ACC: [id number] EE-[id number] Start time: 22: 43 Stop time: 06:45 ICD-10: G93.40 CPT Code: 65983 HISTORY: 82 yo F with history of [...] Fellow Gely Cleary MD, MS Epilepsy/Neurophysiology Attending [facility] METABOLIC [id number] 04:38:00 Test Item Value Reference Range Comments SODIUM (BEAKER) (test 142 meq/L 136-145 ddcx=814) POTASSIUM (BEAKER) (test 3.0 meq/L 3.5-5.1 zpuj=195) CHLORIDE (BEAKER) (test 104 meq/L 98-107 waoa=727) CO2 (BEAKER) (test 31 meq/L 22-29 vcnn=458) BLOOD UREA NITROGEN 13 mg/dL 7-21 (BEAKER) (test yglm=491) CREATININE (BEAKER) (test 0.64 mg/dL 0.57-1.25 mace=285) GLUCOSE RANDOM (BEAKER) 122 mg/dL 70-105 (test fbih=672) CALCIUM (BEAKER) (test 8.1 mg/dL 8.4-10.2 tjoq=369) EGFR (BEAKER) (test 89 mL/min/1.73 sq m ESTIMATED GFR IS NOT igmo=1792) ACCURATE CREATININE CLEARANCE IN PREDICTING GLOMERULAR FILTRATION RATE. ESTIMATED GFR IS NOT APPLICABLE FOR DIALYSIS PATIENTS. CBC W/PLT COUNT & AUTO [id number] 04:03:00 Test Item Value Reference Range Comments WHITE BLOOD CELL COUNT (BEAKER) (test lfch=459) 8.6 K/ L 3.5-10.5 RED BLOOD CELL COUNT (BEAKER) (test dapz=619) 3.94 M/ L 3.93-5.22 HEMOGLOBIN (BEAKER) (test vvek=373) 9.1 GM/DL 11.2-15.7 HEMATOCRIT (BEAKER) (test umnt=121) 30.3 % 34.1-44.9 MEAN CORPUSCULAR VOLUME (BEAKER) (test odnl=642) 76.9 fL 79.4-94.8 MEAN CORPUSCULAR HEMOGLOBIN (BEAKER) (test 23.1 pg 25.6-32.2 gidn=187) MEAN CORPUSCULAR HEMOGLOBIN CONC (BEAKER) (test 30.0 GM/DL 32.2-35.5 uefk=861) RED CELL DISTRIBUTION WIDTH (BEAKER) (test 13.4 % 11.7-14.4 yugi=948) PLATELET COUNT (BEAKER) (test zehz=794) 287 K/CU MM 150-450 MEAN PLATELET VOLUME (BEAKER) (test zevy=667) 8.7 fL 9.4-12.3 NUCLEATED RED BLOOD CELLS (BEAKER) (test 0 /100 WBC 0-0 dogp=559) NEUTROPHILS RELATIVE PERCENT (BEAKER) (test 74 % cktc=072) LYMPHOCYTES RELATIVE PERCENT (BEAKER) (test 16 % lunc=656) MONOCYTES RELATIVE PERCENT (BEAKER) (test 9 % tsip=884) EOSINOPHILS RELATIVE PERCENT (BEAKER) (test 1 % wsbw=224) BASOPHILS RELATIVE PERCENT (BEAKER) (test 0 % flhf=600) NEUTROPHILS ABSOLUTE COUNT (BEAKER) (test 6.35 K/ L 1.56-6.13 rkje=166) LYMPHOCYTES ABSOLUTE COUNT (BEAKER) (test 1.35 K/ L 1.18-3.74 qwed=852) MONOCYTES ABSOLUTE COUNT (BEAKER) (test 0.80 K/ L 0.24-0.36 atnz=466) EOSINOPHILS ABSOLUTE COUNT (BEAKER) (test 0.08 K/ L 0.04-0.36 kwgq=887) BASOPHILS ABSOLUTE COUNT (BEAKER) (test 0.03 K/ L 0.01-0.08 ider=215) IMMATURE GRANULOCYTES-RELATIVE PERCENT (BEAKER) 0 % 0-1 (test qbhb=1346) EEG AWAKE AND [id number] 23:06:00For STAT EEG- after 5 PM weekdays, weekends and holidays, page the on-call legal entity controller Reason for exam:->seizure, AMSDATE OF TEST: 12/16/17DATE OF REPORT 12/16/17ACC: [id number]: [id number] time : 22:22Stop time: 22:43ICD-10: G93.40CPT Code: 39976 HISTORY: 82 yo F with history of [...] Fellow Nabila Sanchez M.D., FACNSProfessor of NeurologyDirector, [facility] EpilepsyC[facility] CentererSelect [facility] [place], [facility] Neurophysiology Lab Electronically signed by: NABILA Foreman 12/16/2017 11:06 PMRAD, CHEST, 1 VIEW, NON [id number] 21:41: 00Reason for exam:->concern for PNAShould this [...] MDReport Verified Date/Time: 12/16/2017 21:41:51 Reading Location: [address] Reading Room [id number] 19:57:00 Test Item Value Reference Range Comments FERRITIN (BEAKER) (test ktgu=575) 36 ng/mL 5-275 VITAMIN D, [id number] 19:57:00 Test Item Value Reference Range Comments VITAMIN D 25-OH (BEAKER) (test yctn=9312) 8.2 ng/mL 6.6-49.9 Effective 09/05/2017: Reference Range ChangeNew: 6.6-49.9 ng/mL Previous: 13.0 -47.8 ng/mLRecommended Vitamin D Target Range: 30.0-40.0 ng/mLTSH/FREE T4 IF [id number] 19:57:00 Test Item Value Reference Range Comments THYROID STIMULATING HORMONE (BEAKER) (test 3.15 uIU/mL 0.35-4.94 pxkb=389) VITAMIN B12 AND [id number] 19:57:00 Test Item Value Reference Range Comments VITAMIN B12 (BEAKER) (test aenc=390) 376 pg/mL 213-816 FOLATE (BEAKER) (test qrwg=583) 15.8 ng/mL >=7.0 URINALYSIS W/ [id number] 19:28:00 Test Item Value Reference Range Comments COLOR (BEAKER) (test ltyj=798) Yellow CLARITY (BEAKER) (test jnqq=618) Clear SPECIFIC GRAVITY UA (BEAKER) (test zfyb=309) 1.017 1.001-1.035 PH UA (BEAKER) (test zhid=631) 5.5 5.0-8.0 PROTEIN UA (BEAKER) (test giyw=609) 50 mg/dL Negative GLUCOSE UA (BEAKER) (test vnim=868) Negative Negative KETONES UA (BEAKER) (test slsn=524) 40 mg/dL Negative BILIRUBIN UA (BEAKER) (test svzf=188) Negative Negative BLOOD UA (BEAKER) (test hoyz=230) Negative Negative NITRITE UA (BEAKER) (test rhcp=243) Negative Negative LEUKOCYTE ESTERASE UA (BEAKER) (test sgfk=948) Moderate Negative UROBILINOGEN UA (BEAKER) (test tfma=749) 0.2 mg/dL 0.2-1.0 RBC UA (BEAKER) (test mfaw=132) 1 /HPF WBC UA (BEAKER) (test npom=627) 55 /HPF BACTERIA (BEAKER) (test gjyf=906) Occasional MUCUS (BEAKER) (test lxws=2642) Many HYALINE CASTS (BEAKER) (test hwsz=565) 10 /LPF SOURCE(BEAKER) (test gxpf=3831) Urine, [place] IRON, TIBC, % SAT. (WITHOUT FERRITIN)2017-12-16 19:21:00 Test Item Value Reference Range Comments IRON (BEAKER) (test pmmi=375) 24 ug/dL 40-160 TOTAL IRON BINDING CAPACITY (BEAKER) (test 309 ug/dL 250-450 fjmu=143) IRON % SATURATION (2) (BEAKER) (test oufm=3308) 8 % 20-55 BASIC METABOLIC [id number] 19:20:00 Test Item Value Reference Range Comments SODIUM (BEAKER) (test 141 meq/L 136-145 nunf=363) POTASSIUM (BEAKER) (test 4.0 meq/L 3.5-5.1 Specimen moderately ufxj=042) hemolyzed CHLORIDE (BEAKER) (test 102 meq/L 98-107 rsyn=012) CO2 (BEAKER) (test 30 meq/L 22-29 kvxn=078) BLOOD UREA NITROGEN 12 mg/dL 7-21 (BEAKER) (test cfzf=203) CREATININE (BEAKER) (test 0.66 mg/dL 0.57-1.25 Specimen moderately kchp=226) hemolyzed GLUCOSE RANDOM (BEAKER) 102 mg/dL 70-105 (test binj=408) CALCIUM (BEAKER) (test 8.3 mg/dL 8.4-10.2 vfnk=102) EGFR (BEAKER) (test 86 mL/min/1.73 sq m ESTIMATED GFR IS NOT bvxz=6623) ACCURATE CREATININE CLEARANCE IN PREDICTING GLOMERULAR FILTRATION RATE. ESTIMATED GFR IS NOT APPLICABLE FOR DIALYSIS PATIENTS. CBC W/PLT COUNT & AUTO [id number] 19:06:00 Test Item Value Reference Range Comments WHITE BLOOD CELL COUNT (BEAKER) (test clid=679) 8.2 K/ L 3.5-10.5 RED BLOOD CELL COUNT (BEAKER) (test pqdc=312) 4.05 M/ L 3.93-5.22 HEMOGLOBIN (BEAKER) (test vbyu=957) 9.4 GM/DL 11.2-15.7 HEMATOCRIT (BEAKER) (test udhb=636) 30.9 % 34.1-44.9 MEAN CORPUSCULAR VOLUME (BEAKER) (test oiyl=049) 76.3 fL 79.4-94.8 MEAN CORPUSCULAR HEMOGLOBIN (BEAKER) (test 23.2 pg 25.6-32.2 aywi=640) MEAN CORPUSCULAR HEMOGLOBIN CONC (BEAKER) (test 30.4 GM/DL 32.2-35.5 cwsp=053) RED CELL DISTRIBUTION WIDTH (BEAKER) (test 13.6 % 11.7-14.4 wbdh=121) PLATELET COUNT (BEAKER) (test mike=133) 301 K/CU MM 150-450 MEAN PLATELET VOLUME (BEAKER) (test nqna=152) 8.7 fL 9.4-12.3 NUCLEATED RED BLOOD CELLS (BEAKER) (test 0 /100 WBC 0-0 ogtr=606) NEUTROPHILS RELATIVE PERCENT (BEAKER) (test 78 % hjrh=247) LYMPHOCYTES RELATIVE PERCENT (BEAKER) (test 13 % epql=189) MONOCYTES RELATIVE PERCENT (BEAKER) (test 9 % dclg=884) EOSINOPHILS RELATIVE PERCENT (BEAKER) (test 1 % agqr=077) BASOPHILS RELATIVE PERCENT (BEAKER) (test 0 % offz=945) NEUTROPHILS ABSOLUTE COUNT (BEAKER) (test 6.35 K/ L 1.56-6.13 iswr=026) LYMPHOCYTES ABSOLUTE COUNT (BEAKER) (test 1.06 K/ L 1.18-3.74 jrfe=281) MONOCYTES ABSOLUTE COUNT (BEAKER) (test 0.70 K/ L 0.24-0.36 rxzq=423) EOSINOPHILS ABSOLUTE COUNT (BEAKER) (test 0.04 K/ L 0.04-0.36 kjfp=000) BASOPHILS ABSOLUTE COUNT (BEAKER) (test 0.03 K/ L 0.01-0.08 ndhy=100) IMMATURE GRANULOCYTES-RELATIVE PERCENT (BEAKER) 0 % 0-1 (test cuyw=1033)
--- NOTE | 2018-03-13 04:55 | EDPHYS ---
Physician Documentation [facility] Name: Gloria Armenta Age: 82 yrs Sex: Female : 1935 Arrival Date: 03/13/2018 Time: 04:37 Bed 5 Private MD: ED Physician Ronny Arguelles HPI: 03/13 04:52 This 82 yrs old Female presents to ER via Unassigned with complaints of Back juani Pain. 04:52 The patient presents with pain that is chronic, with no known mechanism of injury. The juani symptoms are located in the lumbar area. Onset: The symptoms/episode began/occurred 1 week(s) ago. The pain does not radiate. Associated signs and symptoms: The patient has no apparent associated signs or symptoms. The problem was sustained from unknown cause. Severity of symptoms: At their worst the symptoms were mild. Historical: - Allergies: 05:04 Aspirin; bp 05:04 Cefaclor; bp 05:04 Celecoxib; bp 05:04 Cephalexin; bp 05:04 CEPHALOSPORINS; bp 05:04 Chlorpromazine; bp 05:04 chlorpromazine HCl; bp 05:04 esomeprazole mag; bp 05:04 Ketorolac; bp 05:04 ketorolac tromethamine; bp 05:04 Meperidine; bp 05:04 Morphine; bp 05:04 prochlorperazine Edisylate; bp 05:04 Prochlorperazine Maleate; bp 05:04 Rofecoxib; bp 05:04 Sulfa (Sulfonamide Antibiotics); bp 05:04 SUMATRIPTAN; bp 05:04 Sumatriptan Succinate; bp - Home Meds: 05:04 high blood pressure [Active]; bp - PMHx: 05:04 Chronic headaches; Chronic pain; bp - Immunization history:: Adult Immunizations up to date. - Social history:: Smoking status: Patient/guardian denies using tobacco. - Family history:: not pertinent. ROS: 04:52 Constitutional: Negative for fever, chills, and weight loss, Eyes: Negative for injury, juani pain, redness, and discharge, ENT: Negative for injury, pain, and discharge, Neck: Negative for injury, pain, and swelling, Cardiovascular: Negative for chest pain, palpitations, and edema, Respiratory: Negative for shortness of breath, cough, wheezing, and pleuritic chest pain, Abdomen/GI: Negative for abdominal pain, nausea, vomiting, diarrhea, and constipation, : Negative for injury, bleeding, discharge, and swelling, MS/Extremity: Negative for injury and deformity, Skin: Negative for injury, rash, and discoloration, Neuro: Negative for headache, weakness, numbness, tingling, and seizure, Psych: Negative for depression, anxiety, suicide ideation, homicidal ideation, and hallucinations, Allergy/Immunology: Negative for hives, rash, and allergies, Endocrine: Negative for neck swelling, polydipsia, polyuria, polyphagia, and marked weight changes, Hematologic/Lymphatic: Negative for swollen nodes, abnormal bleeding, and unusual bruising. 04:52 Back: Positive for decreased range of motion, pain at rest. Exam: 04:52 Constitutional: This is a well developed, well nourished patient who is awake, alert, juani and in no acute distress. Head/Face: Normocephalic, atraumatic. Eyes: Pupils equal round and reactive to light, extra-ocular motions intact. Lids and lashes normal. Conjunctiva and sclera are non-icteric and not injected. Cornea within normal limits. Periorbital areas with no swelling, redness, or edema. ENT: Nares patent. No nasal discharge, no septal abnormalities noted. Tympanic membranes are normal and external auditory canals are clear. Oropharynx with no redness, swelling, or masses, exudates, or evidence of obstruction, uvula midline. Mucous membranes moist. Neck: Trachea midline, no thyromegaly or masses palpated, and no cervical lymphadenopathy. Supple, full range of motion without nuchal rigidity, or vertebral point tenderness. No Meningismus. Chest/axilla: Normal chest wall appearance and motion. Nontender with no deformity. No lesions are appreciated. Cardiovascular: Regular rate and rhythm with a normal S1 and S2. No gallops, murmurs, or rubs. Normal PMI, no JVD. No pulse deficits. Respiratory: Lungs have equal breath sounds bilaterally, clear to auscultation and percussion. No rales, rhonchi or wheezes noted. No increased work of breathing, no retractions or nasal flaring. Abdomen/GI: Soft, non-tender, with normal bowel sounds. No distension or tympany. No guarding or rebound. No evidence of tenderness throughout. Skin: Warm, dry with normal turgor. Normal color with no rashes, no lesions, and no evidence of cellulitis. MS/ Extremity: Pulses equal, no cyanosis. Neurovascular intact. Full, normal range of motion. Neuro: Awake and alert, GCS 15, oriented to person, place, time, and situation. Cranial nerves II-XII grossly intact. Motor strength 5/5 in all extremities. Sensory grossly intact. Cerebellar exam normal. Normal gait. Psych: Awake, alert, with orientation to person, place and time. Behavior, mood, and affect are within normal limits. 04:52 Back: pain, that is mild, that is moderate, ROM is painful, kyphosis, CVA tenderness, is absent, muscle spasm, is not present. Vital Signs: 04:51 BP 163 / 92; Pulse 85; Resp 15; Temp 98.4(O); Pulse Ox 99% on R/A; mt MDM: 04:52 Patient medically screened. [facility] 04:55 Data reviewed: vital signs, nurses notes. [facility] Administered Medications: 05:02 Drug: [place] 10 mg-325 mg 1 tabs Route: PO; bp 05:12 Follow up: Response: Medication administered at discharge. bp Disposition: 03/13/18 04:54 Discharged to Home. Impression: Low back pain. - Condition is Stable. - Discharge Instructions: Back Pain, Adult, Musculoskeletal Pain, Back Injury Prevention, [id number], Back Pain, Adult, [id number]. - Prescriptions for Tylenol- Codeine #3 300-30 mg Oral Tablet - take 2 tablets by ORAL route every 6 hours As needed; 24 tablet. - Medication Reconciliation Form, Thank You Letter, Antibiotic Education, Prescription Opioid Use form. - Follow up: Private Physician; When: 2 - 3 days; Reason: Recheck today's complaints, Continuance of care, Re-evaluation by your physician. - Problem is new. - Symptoms have improved. Signatures: Ronny Arguelles MD MD cha Peltier, Brian, RN RN bp
--- NOTE | 2018-03-13 04:55 | ER ---
Nurse's Notes [facility] Name: Gloria Armenta Age: 82 yrs Sex: Female : 1935 Arrival Date: 03/13/2018 Time: 04:37 Bed 5 Private MD: Diagnosis: Low back pain Presentation: 03/13 05:02 Presenting complaint: Patient states: I'M OUT OF PAIN MEDICINE. Transition of care: bp patient was not received from another setting of care. Onset of symptoms is unknown. Care prior to arrival: None. 05:02 Method Of Arrival: Ambulatory bp 05:02 Acuity: AURELIO 5 bp Historical: - Allergies: 05:04 Aspirin; bp 05:04 Cefaclor; bp 05:04 Celecoxib; bp 05:04 Cephalexin; bp 05:04 CEPHALOSPORINS; bp 05:04 Chlorpromazine; bp 05:04 chlorpromazine HCl; bp 05:04 esomeprazole mag; bp 05:04 Ketorolac; bp 05:04 ketorolac tromethamine; bp 05:04 Meperidine; bp 05:04 Morphine; bp 05:04 prochlorperazine Edisylate; bp 05:04 Prochlorperazine Maleate; bp 05:04 Rofecoxib; bp 05:04 Sulfa (Sulfonamide Antibiotics); bp 05:04 SUMATRIPTAN; bp 05:04 Sumatriptan Succinate; bp - Home Meds: 05:04 high blood pressure [Active]; bp - PMHx: 05:04 Chronic headaches; Chronic pain; bp - Immunization history:: Adult Immunizations up to date. - Social history:: Smoking status: Patient/guardian denies using tobacco. - Family history:: not pertinent. Screenin:00 Abuse screen: Denies threats or abuse. Denies injuries from another. Nutritional bp screening: No deficits noted. Tuberculosis screening: No symptoms or risk factors identified. Fall Risk None identified. Assessment: 05:00 General: Appears in no apparent distress. comfortable, Behavior is appropriate for age. bp Pain: Complains of pain in back. Neuro: Level of Consciousness is awake, alert, obeys commands, Oriented to person, place, time, situation, Appropriate for age. Cardiovascular: No deficits noted. Respiratory: No deficits noted. GI: No deficits noted. : No deficits noted. EENT: No deficits noted. Derm: No deficits noted. Musculoskeletal: Circulation, motion, and sensation intact. Range of motion: intact in all extremities. 05:11 Reassessment: PT D/C HOME WITH FAMILY, DX WITH CHRONIC BACK PAIN. bp Vital Signs: 04:51 BP 163 / 92; Pulse 85; Resp 15; Temp 98.4(O); Pulse Ox 99% on R/A; md ED Course: 04:37 Patient arrived in ED. do 04:47 Braeden Ng, RN is Primary Nurse. bp 04:52 Ronny Arguelles MD is Attending Physician. [facility] 05:00 Patient has correct armband on for positive identification. Bed in low position. Call bp light in reach. Side rails up X2. 05:00 No provider procedures requiring assistance completed. Patient did not have IV access bp during this emergency room visit. 05:02 Triage completed. bp 05:09 Arm band placed on. bp Administered Medications: 05:02 Drug: [place] 10 mg-325 mg 1 tabs Route: PO; bp 05:12 Follow up: Response: Medication administered at discharge. bp Outcome: 04:54 Discharge ordered by . [facility] 05:00 Discharged to home via wheelchair, with family. bp 05:00 Condition: stable 05:00 Discharge instructions given to patient, Instructed on discharge instructions, follow up and referral plans. medication usage, Demonstrated understanding of instructions, follow-up care, medications, Prescriptions given X 1. 05:12 Patient left the ED. bp Signatures: Ronny Arguelles MD MD cha Ogletree, Danielle do Thompson [facility] Braeden Ng, RN RN bp
[2018-03-13] MEDS ORDERED: HYDROCODONE/APAP 10/325 TAB ONE (04:57)
[2018-03-13 05:16] VITALS: BP 163/92; TEMP 98.4; O2SAT 99
== END 2018-03-13 05:12 | disposition home or self-care (01) ==
LOC: ER 04:32
DX: M54.5 Low back pain (principal); Z88.1 Allergy status to other antibiotic agents; Z88.2 Allergy status to sulfonamides; Z88.3 Allergy status to other anti-infective agents; Z88.5 Allergy status to narcotic agent; Z88.6 Allergy status to analgesic agent; Z88.8 Allergy status to other drugs, medicaments and biological substances
CPT/HCPCS: 99283

== ENCOUNTER 2018-03-22 01:09 | Emergency (ER) | payer OTHER, SELFPAY ==
--- OUTSIDE RECORDS SUMMARY | 2018-03-22 01:12 | XMS REPORT | Clinical Summary ---
:1935 Author Organization [facility] Address [address] [place] [address] Phone Care Team Providers Name Role Phone [...] type;Hypothyroidism, unspecified type;Acute cystitis without hematuria after 03/21/2017 Social History Tobacco Use Types Packs/Day Years Used Date Never Smoker Smokeless Tobacco: Never Used Sex Assigned at Date Recorded Not on file Last Filed Vital Signs Vital Sign Reading Time Taken Blood Pressure 157/77 12/20/2017 11:34 AM [facility] Pulse 76 12/20/2017 11:34 AM [facility] Temperature 36.5 C (97.7 F) 12/20/2017 11:34 AM [facility] Respiratory Rate 18 12/20/2017 11:34 AM [facility] Oxygen Saturation 98% 12/20/2017 11:34 AM [facility] Inhaled Oxygen Concentration - - Weight 54 kg (119 lb) 12/20/2017 5:00 AM [facility] Height 157.5 cm (5' 2") 12/16/2017 5:25 PM [facility] Body Mass Index 21.77 12/20/2017 5:00 AM [facility] Plan of Treatment Not on file Results RHYTHM STRIP - SCAN (12/21/2017 2:41 PM)Magnesium (12/19/2017 7:31 AM)Only the most recent of2 resultswithin the time period is included. Component Value Ref Range Magnesium 2.2Comment: Specimen slightly hemolyzed 1.6 - 2.6 mg/dL Specimen Performing Laboratory Blood - Line, Venous [facility] [address] [address] Basic Metabolic Panel (12/19/2017 7:31 AM)Only the [...] Specimen Performing Laboratory Blood - Line, Venous [address] [address] CBC with platelet count + automated diff [...] Specimen Performing Laboratory Blood - Line, Venous [address] [address] CBC with platelet count + automated diff (12/19/2017 6:58 AM)Only the most recent of4 resultswithin the time period is included. Specimen Performing Laboratory Blood Narrative The following orders were created for panel order CBC with platelet count + automated diff. Procedure Abnormality Status --------- ------ CBC with platelet count ...[[id number]]AbnormalFinal result Please view results for these tests [...] to 12/17/2017 DATE OF REPORT 12/16/17 ACC: [id number] Start time: 22:43 Stop time: 06:45 ICD-10: G93.40 CPT Code: 93738 HISTORY: 82 yo F with history of chronic pain, chronic Lozano, osteoporosis, HTN, who was transferred from [facility] for AMS and seizures. UDS + [...] External Ris In - 12/17/2017 4:19 PM [facility] Addendum Begins Addendum: Start time: 0645 Stop [...] to 12/17/2017 DATE OF REPORT 12/16/17 ACC: [id number] Start time: 22:43 Stop time: 06:45 ICD-10: G93.40 CPT Code: 79759 HISTORY: 82 yo F with history of [...] TEST: 12/16/17 DATE OF REPORT 12/16/17 ACC: [id number] Start time: 22:22 Stop time: 22:43 ICD-10: G93.40 CPT Code: 07409 HISTORY: 82 yo F with history of [...] Galeas MD Epilepsy Fellow Nabila Sanchez M.D., [facility] Professor of Neurology Director, [facility] Epilepsy [place], [facility] Neurophysiology Lab Procedure Note Interface, External Ris In - 12/16/2017 11:06 PM [facility] [facility] DATE OF TEST: 12/16/17 DATE OF REPORT 12/16/17 ACC: [id number] Start time: 22:22 Stop time: 22:43 ICD-10: G93.40 CPT Code: 89246 HISTORY: 82 yo F with history of chronic pain, chronic Lozano, osteoporosis, HTN, who was transferred from [facility] for AMS and seizures. UDS + [...] Galeas MD Epilepsy Fellow Nabila Sanchez M.D., [facility] Professor of Neurology Director, [facility] Epilepsy [place], [facility] Neurophysiology Lab chest 1 view portable [...] MD Report Verified Date/Time:12/16/2017 21:41:51 Reading Location: [address] Reading Room Procedure Note Interface, External Ris In - 12/16/2017 9:44 PM [facility] [facility] FINAL REPORT INDICATION: concern for PNA COMPARISON: None TECHNIQUE: Single frontal view of the chest. FINDINGS: Limited by severe scoliosis and contractures. Lungs and pleura: Clear lungs. No effusion. Heart and mediastinum: Normal heart size. Unremarkable mediastinal contours. Osseous structures: No acute abnormality. Other: None. IMPRESSION: No acute intrathoracic abnormality. Signed: JR Lamb Robert MD Report Verified Date/Time: 12/16/2017 21:41:51 Reading Location: [address] Reading Room Urine culture (12/16/2017 8:45 PM) Component Value Ref Range Result Result >100,000 col/mL Citrobacter braakii (A) Specimen Performing Laboratory Urine - Urine, [place] [address] [address] Organism Antibiotic Method Susceptibility Citrobacter braakii Amikacin [...] 15.8 >=7.0 ng/mL Specimen Performing Laboratory Blood [address] [address] TSH/Free T4 If Indicated (12/16/2017 6:50 PM) Component Value Ref Range TSH 3.15 0.35 - 4.94 uIU/mL Specimen Performing Laboratory Blood [address] [address] Iron, TIBC, % sat. (without ferritin) (12/16/2017 6:50 PM) Component Value Ref Range Iron 24 (L) 40 - 160 ug/dL TIBC 309 250 - 450 ug/dL Iron % Saturation 8 (L) 20 - 55 % Specimen Performing Laboratory Blood [address] [address] Vitamin D, 25-Hydroxy (12/16/2017 6:50 PM) Component Value Ref Range Vitamin D 25-Hydroxy 8.2 6.6 - 49.9 ng/mL Specimen Performing Laboratory Blood [address] [address] Narrative Effective 09/05/2017: Reference Range Change New: 6.6-49.9 ng/mL Previous: 13.0-47.8 ng/mL Recommended Vitamin D Target Range: 30.0-40.0 ng/mL Blood culture (12/16/2017 6:50 PM) Component Value Ref Range Result No growth in 5 days Specimen Performing Laboratory Blood - Arm, Right [address] [address] Urinalysis w/ Microscopic (12/16/2017 6:50 PM) Component Value Ref Range Color, UA Yellow Clarity, UA Clear Specific [place], UA 1.017 1.001 - 1.035 pH, UA [...] Specimen Performing Laboratory Urine - Urine, [place] [address] [address] Ferritin (12/16/2017 6:50 PM) Component Value Ref Range Ferritin 36 5 - 275 ng/mL Specimen Performing Laboratory Blood [address] [address] after 03/21/2017
--- OUTSIDE RECORDS SUMMARY | 2018-03-22 01:12 | XMS REPORT ---
:1935 [facility] Organization [facility] Address [address] [place] [address] [address] [place] [address] Care Team Providers Name Role Phone NICHOLE PEREZ Unavailable Unavailable Problems This patient has no known problems. Allergies, Adverse Reactions, Alerts This patient has no known allergies or adverse reactions. Medications This patient has no known medications. Results Test Description Test Time Test Comments Text Results Atomic Results Result Comments BLOOD CULTURE 2017-12-22 05:01:00 Test Item Value Reference Range Comments CULTURE (BEAKER) (test vfpk=4268) No growth in 5 days [id number] 11:31:00 Test Item Value Reference Range Comments MAGNESIUM (BEAKER) (test 2.2 mg/dL 1.6-2.6 Specimen slightly hemolyzed ywln=849) BASIC METABOLIC [id number] 11:31:00 Test Item Value Reference Range Comments SODIUM (BEAKER) (test 139 meq/L 136-145 trfq=770) POTASSIUM (BEAKER) (test 4.0 meq/L 3.5-5.1 Specimen slightly icig=110) hemolyzed CHLORIDE (BEAKER) (test 104 meq/L 98-107 rmgd=942) CO2 (BEAKER) (test 27 meq/L 22-29 jjrs=123) BLOOD UREA NITROGEN 7 mg/dL 7-21 (BEAKER) (test hqhs=206) CREATININE (BEAKER) (test 0.60 mg/dL 0.57-1.25 Specimen slightly ijrv=395) hemolyzed GLUCOSE RANDOM (BEAKER) 113 mg/dL 70-105 (test gwaz=486) CALCIUM (BEAKER) (test 8.3 mg/dL 8.4-10.2 aiox=499) EGFR (BEAKER) (test 95 mL/min/1.73 sq m ESTIMATED GFR IS NOT heqp=3148) ACCURATE CREATININE CLEARANCE IN PREDICTING GLOMERULAR FILTRATION RATE. ESTIMATED GFR IS NOT APPLICABLE FOR DIALYSIS PATIENTS. URINE [id number] 09:10:00 Test Item Value Reference Range Comments CULTURE (BEAKER) (test laqi=4618) Amikacin (test code=1) Aztreonam (test code=32) Cefepime (test code=51) Cefoxitin (test code=68) Ceftazidime (test code=27) Ceftriaxone (test code=52) Ertapenem (test code=38) Gentamicin (test code=18) Levofloxacin (test code=22) Meropenem (test code=34) Nitrofurantoin (test code=23) Piperacillin + Tazobactam (test code=29) Tetracycline (test code=2) Tobramycin (test code=25) Trimethoprim + Sulfamethoxazole (test code=47) CULTURE (BEAKER) (test oxfv=1851) >100,000 col/mL Citrobacter braakii CBC W/PLT COUNT & AUTO [id number] 07:05:00 Test Item Value Reference Range Comments WHITE BLOOD CELL COUNT (BEAKER) (test mfin=523) 7.5 K/ L 3.5-10.5 RED BLOOD CELL COUNT (BEAKER) (test nsen=384) 4.30 M/ L 3.93-5.22 HEMOGLOBIN (BEAKER) (test dboj=538) 10.1 GM/DL 11.2-15.7 HEMATOCRIT (BEAKER) (test dznj=165) 32.6 % 34.1-44.9 MEAN CORPUSCULAR VOLUME (BEAKER) (test ueze=498) 75.8 fL 79.4-94.8 MEAN CORPUSCULAR HEMOGLOBIN (BEAKER) (test 23.5 pg 25.6-32.2 ojib=028) MEAN CORPUSCULAR HEMOGLOBIN CONC (BEAKER) (test 31.0 GM/DL 32.2-35.5 glfn=010) RED CELL DISTRIBUTION WIDTH (BEAKER) (test 14.1 % 11.7-14.4 raia=824) PLATELET COUNT (BEAKER) (test vjon=219) 289 K/CU MM 150-450 MEAN PLATELET VOLUME (BEAKER) (test tlpj=883) 9.1 fL 9.4-12.3 NUCLEATED RED BLOOD CELLS (BEAKER) (test 0 /100 WBC 0-0 vllr=130) NEUTROPHILS RELATIVE PERCENT (BEAKER) (test 73 % fsaj=043) LYMPHOCYTES RELATIVE PERCENT (BEAKER) (test 15 % atmh=206) MONOCYTES RELATIVE PERCENT (BEAKER) (test 9 % paly=962) EOSINOPHILS RELATIVE PERCENT (BEAKER) (test 2 % sczu=388) BASOPHILS RELATIVE PERCENT (BEAKER) (test 0 % ljex=624) NEUTROPHILS ABSOLUTE COUNT (BEAKER) (test 5.50 K/ L 1.56-6.13 bgkb=038) LYMPHOCYTES ABSOLUTE COUNT (BEAKER) (test 1.12 K/ L 1.18-3.74 cqfc=874) MONOCYTES ABSOLUTE COUNT (BEAKER) (test 0.67 K/ L 0.24-0.36 pycv=841) EOSINOPHILS ABSOLUTE COUNT (BEAKER) (test 0.16 K/ L 0.04-0.36 qsxe=580) BASOPHILS ABSOLUTE COUNT (BEAKER) (test 0.03 K/ L 0.01-0.08 wmli=695) IMMATURE GRANULOCYTES-RELATIVE PERCENT (BEAKER) 0 % 0-1 (test blui=7825) [id number] 08:15:00 Test Item Value Reference Range Comments MAGNESIUM (BEAKER) (test ouzo=251) 1.7 mg/dL 1.6-2.6 CBC W/PLT COUNT & AUTO [id number] 04:24:00 Test Item Value Reference Range Comments WHITE BLOOD CELL COUNT (BEAKER) (test axis=175) 6.7 K/ L 3.5-10.5 RED BLOOD CELL COUNT (BEAKER) (test ssfs=535) 3.69 M/ L 3.93-5.22 HEMOGLOBIN (BEAKER) (test ugxk=655) 8.6 GM/DL 11.2-15.7 HEMATOCRIT (BEAKER) (test pnat=010) 28.5 % 34.1-44.9 MEAN CORPUSCULAR VOLUME (BEAKER) (test smsg=081) 77.2 fL 79.4-94.8 MEAN CORPUSCULAR HEMOGLOBIN (BEAKER) (test 23.3 pg 25.6-32.2 uxcu=289) MEAN CORPUSCULAR HEMOGLOBIN CONC (BEAKER) (test 30.2 GM/DL 32.2-35.5 ecqg=346) RED CELL DISTRIBUTION WIDTH (BEAKER) (test 13.7 % 11.7-14.4 zljc=027) PLATELET COUNT (BEAKER) (test yatc=277) 249 K/CU MM 150-450 MEAN PLATELET VOLUME (BEAKER) (test jcpo=500) 8.8 fL 9.4-12.3 NUCLEATED RED BLOOD CELLS (BEAKER) (test 0 /100 WBC 0-0 kggm=056) NEUTROPHILS RELATIVE PERCENT (BEAKER) (test 64 % ilgn=086) LYMPHOCYTES RELATIVE PERCENT (BEAKER) (test 21 % hhyf=108) MONOCYTES RELATIVE PERCENT (BEAKER) (test 12 % myhr=372) EOSINOPHILS RELATIVE PERCENT (BEAKER) (test 3 % jrcy=116) BASOPHILS RELATIVE PERCENT (BEAKER) (test 0 % munm=949) NEUTROPHILS ABSOLUTE COUNT (BEAKER) (test 4.23 K/ L 1.56-6.13 lbqn=586) LYMPHOCYTES ABSOLUTE COUNT (BEAKER) (test 1.39 K/ L 1.18-3.74 dovc=586) MONOCYTES ABSOLUTE COUNT (BEAKER) (test 0.80 K/ L 0.24-0.36 yfry=709) EOSINOPHILS ABSOLUTE COUNT (BEAKER) (test 0.20 K/ L 0.04-0.36 wfha=989) BASOPHILS ABSOLUTE COUNT (BEAKER) (test 0.02 K/ L 0.01-0.08 qyzi=874) IMMATURE GRANULOCYTES-RELATIVE PERCENT (BEAKER) 0 % 0-1 (test zdyo=2991) BASIC METABOLIC [id number] 04:19:00 Test Item Value Reference Range Comments SODIUM (BEAKER) (test 139 meq/L 136-145 ceen=841) POTASSIUM (BEAKER) (test 3.1 meq/L 3.5-5.1 irux=686) CHLORIDE (BEAKER) (test 103 meq/L 98-107 rcts=526) CO2 (BEAKER) (test 29 meq/L 22-29 bqpa=908) BLOOD UREA NITROGEN 12 mg/dL 7-21 (BEAKER) (test gvhb=835) CREATININE (BEAKER) (test 0.65 mg/dL 0.57-1.25 chro=591) GLUCOSE RANDOM (BEAKER) 91 mg/dL 70-105 (test jjtr=420) CALCIUM (BEAKER) (test 8.1 mg/dL 8.4-10.2 kvgn=573) EGFR (LADONNA) (test 87 mL/min/1.73 sq m ESTIMATED GFR IS NOT kehj=6741) ACCURATE CREATININE CLEARANCE IN PREDICTING GLOMERULAR FILTRATION RATE. ESTIMATED GFR IS NOT APPLICABLE FOR DIALYSIS PATIENTS. EEG MONITORING WITH VIDEO RECORDING EACH 24 [id number] 16:19:00Addendum BeginsAddendum:Start time: 0645Stop time: 1613 There [...] 12/16/2017 to DATE OF REPORT 12/16/17 ACC: [id number] Start time: 22: 43 Stop time: 06:45 ICD-10: G93.40 CPT Code: 21045 HISTORY: 82 yo F with history of [...] Fellow Gely Cleary MD, MS Epilepsy/Neurophysiology Attending [facility] METABOLIC [id number] 04:38:00 Test Item Value Reference Range Comments SODIUM (BEAKER) (test 142 meq/L 136-145 umhs=824) POTASSIUM (BEAKER) (test 3.0 meq/L 3.5-5.1 tnka=897) CHLORIDE (BEAKER) (test 104 meq/L 98-107 ofwj=741) CO2 (BEAKER) (test 31 meq/L 22-29 ztze=230) BLOOD UREA NITROGEN 13 mg/dL 7-21 (BEAKER) (test drul=682) CREATININE (BEAKER) (test 0.64 mg/dL 0.57-1.25 qetr=033) GLUCOSE RANDOM (BEAKER) 122 mg/dL 70-105 (test ucbw=662) CALCIUM (BEAKER) (test 8.1 mg/dL 8.4-10.2 qdmz=018) EGFR (BEAKER) (test 89 mL/min/1.73 sq m ESTIMATED GFR IS NOT nynx=5996) ACCURATE CREATININE CLEARANCE IN PREDICTING GLOMERULAR FILTRATION RATE. ESTIMATED GFR IS NOT APPLICABLE FOR DIALYSIS PATIENTS. CBC W/PLT COUNT & AUTO [id number] 04:03:00 Test Item Value Reference Range Comments WHITE BLOOD CELL COUNT (BEAKER) (test hgqv=862) 8.6 K/ L 3.5-10.5 RED BLOOD CELL COUNT (BEAKER) (test kpis=347) 3.94 M/ L 3.93-5.22 HEMOGLOBIN (BEAKER) (test byru=642) 9.1 GM/DL 11.2-15.7 HEMATOCRIT (BEAKER) (test elvx=869) 30.3 % 34.1-44.9 MEAN CORPUSCULAR VOLUME (BEAKER) (test omqh=880) 76.9 fL 79.4-94.8 MEAN CORPUSCULAR HEMOGLOBIN (BEAKER) (test 23.1 pg 25.6-32.2 mxfn=185) MEAN CORPUSCULAR HEMOGLOBIN CONC (BEAKER) (test 30.0 GM/DL 32.2-35.5 sefv=071) RED CELL DISTRIBUTION WIDTH (BEAKER) (test 13.4 % 11.7-14.4 cjba=558) PLATELET COUNT (BEAKER) (test vzlw=018) 287 K/CU MM 150-450 MEAN PLATELET VOLUME (BEAKER) (test pelv=909) 8.7 fL 9.4-12.3 NUCLEATED RED BLOOD CELLS (BEAKER) (test 0 /100 WBC 0-0 iybi=419) NEUTROPHILS RELATIVE PERCENT (BEAKER) (test 74 % ljul=026) LYMPHOCYTES RELATIVE PERCENT (BEAKER) (test 16 % nrjr=962) MONOCYTES RELATIVE PERCENT (BEAKER) (test 9 % jjbw=698) EOSINOPHILS RELATIVE PERCENT (BEAKER) (test 1 % ohqe=695) BASOPHILS RELATIVE PERCENT (BEAKER) (test 0 % ayec=415) NEUTROPHILS ABSOLUTE COUNT (BEAKER) (test 6.35 K/ L 1.56-6.13 aprp=843) LYMPHOCYTES ABSOLUTE COUNT (BEAKER) (test 1.35 K/ L 1.18-3.74 bfqp=350) MONOCYTES ABSOLUTE COUNT (BEAKER) (test 0.80 K/ L 0.24-0.36 kufz=576) EOSINOPHILS ABSOLUTE COUNT (BEAKER) (test 0.08 K/ L 0.04-0.36 fhao=399) BASOPHILS ABSOLUTE COUNT (BEAKER) (test 0.03 K/ L 0.01-0.08 gtcz=492) IMMATURE GRANULOCYTES-RELATIVE PERCENT (BEAKER) 0 % 0-1 (test viuu=1019) EEG AWAKE AND [id number] 23:06:00For STAT EEG- after 5 PM weekdays, weekends and holidays, page the on-call linux system admin Reason for exam:->seizure, AMSDATE OF TEST: 12/16/17DATE OF REPORT 12/16/17ACC: [id number]: [id number] time : 22:22Stop time: 22:43ICD-10: G93.40CPT Code: 90791 HISTORY: 82 yo F with history of [...] Fellow Nabila Sanchez M.D., FACNSProfessor of NeurologyDirector, [facility] EpilepsyPromedica Flower HospitalerOhio [facility], [facility] Neurophysiology Lab Electronically signed by: NABILA Foreman 12/16/2017 11:06 PMRAD, CHEST, 1 VIEW, NON [id number] 21:41: 00Reason for exam:->concern for PNAShould this [...] MDReport Verified Date/Time: 12/16/2017 21:41:51 Reading Location: [address] Reading Room [id number] 19:57:00 Test Item Value Reference Range Comments FERRITIN (BEAKER) (test syev=706) 36 ng/mL 5-275 VITAMIN D, [id number] 19:57:00 Test Item Value Reference Range Comments VITAMIN D 25-OH (BEAKER) (test jetr=3761) 8.2 ng/mL 6.6-49.9 Effective 09/05/2017: Reference Range ChangeNew: 6.6-49.9 ng/mL Previous: 13.0 -47.8 ng/mLRecommended Vitamin D Target Range: 30.0-40.0 ng/mLTSH/FREE T4 IF [id number] 19:57:00 Test Item Value Reference Range Comments THYROID STIMULATING HORMONE (BEAKER) (test 3.15 uIU/mL 0.35-4.94 emdv=904) VITAMIN B12 AND [id number] 19:57:00 Test Item Value Reference Range Comments VITAMIN B12 (BEAKER) (test izdt=220) 376 pg/mL 213-816 FOLATE (BEAKER) (test cjse=524) 15.8 ng/mL >=7.0 URINALYSIS W/ [id number] 19:28:00 Test Item Value Reference Range Comments COLOR (BEAKER) (test ukhk=670) Yellow CLARITY (BEAKER) (test aniw=522) Clear SPECIFIC GRAVITY UA (BEAKER) (test qvze=064) 1.017 1.001-1.035 PH UA (BEAKER) (test scek=890) 5.5 5.0-8.0 PROTEIN UA (BEAKER) (test wkac=649) 50 mg/dL Negative GLUCOSE UA (BEAKER) (test xmwa=293) Negative Negative KETONES UA (BEAKER) (test zkmb=619) 40 mg/dL Negative BILIRUBIN UA (BEAKER) (test namo=432) Negative Negative BLOOD UA (BEAKER) (test kwjk=089) Negative Negative NITRITE UA (BEAKER) (test zeoi=347) Negative Negative LEUKOCYTE ESTERASE UA (BEAKER) (test cjub=842) Moderate Negative UROBILINOGEN UA (BEAKER) (test tbag=577) 0.2 mg/dL 0.2-1.0 RBC UA (BEAKER) (test xmbs=094) 1 /HPF WBC UA (BEAKER) (test dkma=320) 55 /HPF BACTERIA (BEAKER) (test ytik=295) Occasional MUCUS (BEAKER) (test yzvg=7439) Many HYALINE CASTS (BEAKER) (test urmt=635) 10 /LPF SOURCE(BEAKER) (test gmdp=4224) Urine, [place] IRON, TIBC, % SAT. (WITHOUT FERRITIN)2017-12-16 19:21:00 Test Item Value Reference Range Comments IRON (BEAKER) (test dgaw=655) 24 ug/dL 40-160 TOTAL IRON BINDING CAPACITY (BEAKER) (test 309 ug/dL 250-450 ytdu=621) IRON % SATURATION (2) (BEAKER) (test jcok=3916) 8 % 20-55 BASIC METABOLIC [id number] 19:20:00 Test Item Value Reference Range Comments SODIUM (BEAKER) (test 141 meq/L 136-145 xiyo=643) POTASSIUM (BEAKER) (test 4.0 meq/L 3.5-5.1 Specimen moderately tjeq=670) hemolyzed CHLORIDE (BEAKER) (test 102 meq/L 98-107 vukj=757) CO2 (BEAKER) (test 30 meq/L 22-29 accq=241) BLOOD UREA NITROGEN 12 mg/dL 7-21 (BEAKER) (test ektx=089) CREATININE (BEAKER) (test 0.66 mg/dL 0.57-1.25 Specimen moderately mzip=878) hemolyzed GLUCOSE RANDOM (BEAKER) 102 mg/dL 70-105 (test ydns=050) CALCIUM (BEAKER) (test 8.3 mg/dL 8.4-10.2 agbo=988) EGFR (BEAKER) (test 86 mL/min/1.73 sq m ESTIMATED GFR IS NOT hjmt=8846) ACCURATE CREATININE CLEARANCE IN PREDICTING GLOMERULAR FILTRATION RATE. ESTIMATED GFR IS NOT APPLICABLE FOR DIALYSIS PATIENTS. CBC W/PLT COUNT & AUTO [id number] 19:06:00 Test Item Value Reference Range Comments WHITE BLOOD CELL COUNT (BEAKER) (test gpeo=671) 8.2 K/ L 3.5-10.5 RED BLOOD CELL COUNT (BEAKER) (test ydgl=369) 4.05 M/ L 3.93-5.22 HEMOGLOBIN (BEAKER) (test oikw=935) 9.4 GM/DL 11.2-15.7 HEMATOCRIT (BEAKER) (test nwch=635) 30.9 % 34.1-44.9 MEAN CORPUSCULAR VOLUME (BEAKER) (test scor=266) 76.3 fL 79.4-94.8 MEAN CORPUSCULAR HEMOGLOBIN (BEAKER) (test 23.2 pg 25.6-32.2 ogeb=152) MEAN CORPUSCULAR HEMOGLOBIN CONC (BEAKER) (test 30.4 GM/DL 32.2-35.5 chvj=838) RED CELL DISTRIBUTION WIDTH (BEAKER) (test 13.6 % 11.7-14.4 ctkg=499) PLATELET COUNT (BEAKER) (test hlii=714) 301 K/CU MM 150-450 MEAN PLATELET VOLUME (BEAKER) (test dnco=940) 8.7 fL 9.4-12.3 NUCLEATED RED BLOOD CELLS (BEAKER) (test 0 /100 WBC 0-0 fliy=946) NEUTROPHILS RELATIVE PERCENT (BEAKER) (test 78 % utzv=195) LYMPHOCYTES RELATIVE PERCENT (BEAKER) (test 13 % pvdh=401) MONOCYTES RELATIVE PERCENT (BEAKER) (test 9 % gruq=607) EOSINOPHILS RELATIVE PERCENT (BEAKER) (test 1 % owmq=450) BASOPHILS RELATIVE PERCENT (BEAKER) (test 0 % wywv=078) NEUTROPHILS ABSOLUTE COUNT (BEAKER) (test 6.35 K/ L 1.56-6.13 ddnn=762) LYMPHOCYTES ABSOLUTE COUNT (BEAKER) (test 1.06 K/ L 1.18-3.74 acfj=310) MONOCYTES ABSOLUTE COUNT (BEAKER) (test 0.70 K/ L 0.24-0.36 tifq=731) EOSINOPHILS ABSOLUTE COUNT (BEAKER) (test 0.04 K/ L 0.04-0.36 ceak=054) BASOPHILS ABSOLUTE COUNT (BEAKER) (test 0.03 K/ L 0.01-0.08 jjis=915) IMMATURE GRANULOCYTES-RELATIVE PERCENT (BEAKER) 0 % 0-1 (test stij=3185)
[2018-03-22] MEDS ORDERED: cloNIDine HCl 0.1 MG TAB ONE (01:57)
[2018-03-22] MEDS ORDERED: CIPROFLOXACIN HCL 500 MG TAB ONE (01:57)
[2018-03-22] MEDS ORDERED: AMLODIPINE 5 MG TAB ONE (02:03)
--- NOTE | 2018-03-22 02:08 | EDPHYS ---
Physician Documentation [facility] Name: Gloria Armenta Age: 82 yrs Sex: Female : 1935 Arrival Date: 03/22/2018 Time: 01:14 Bed 6 Private MD: ED Physician Ronny Arguelles HPI: 03/22 01:54 This 82 yrs old Female presents to ER via Wheelchair with complaints of juani BLADDER INFECTION. 01:54 The patient presents with urinary symptoms, dysuria, frequency, urgency. Onset: The juani symptoms/episode began/occurred 2 day(s) ago. Modifying factors: The symptoms are alleviated by nothing, the symptoms are aggravated by nothing. Associated signs and symptoms: The patient has no apparent associated signs or symptoms. Severity of symptoms: At their worst the symptoms were mild, in the emergency department the symptoms are unchanged. The patient has experienced similar episodes in the past, a few times. Historical: - Allergies: 01:51 Aspirin; ak1 01:51 Cefaclor; ak1 01:51 Celecoxib; ak1 01:51 Cephalexin; ak1 01:51 CEPHALOSPORINS; ak1 01:51 Chlorpromazine; ak1 01:51 chlorpromazine HCl; ak1 01:51 esomeprazole mag; ak1 01:51 Ketorolac; ak1 01:51 ketorolac tromethamine; ak1 01:51 Meperidine; ak1 01:51 Morphine; ak1 01:51 prochlorperazine Edisylate; ak1 01:51 Prochlorperazine Maleate; ak1 01:51 Rofecoxib; ak1 01:51 Sulfa (Sulfonamide Antibiotics); ak1 01:51 Sumatriptan Succinate; ak1 01:51 SUMATRIPTAN; ak1 - Home Meds: 01:51 high blood pressure [Active]; ak1 - PMHx: 01:51 Chronic headaches; Chronic pain; ak1 - Immunization history:: Adult Immunizations unknown. - Social history:: Smoking status: Patient/guardian denies using tobacco. - Family history:: not pertinent. ROS: 01:54 Constitutional: Negative for fever, chills, and weight loss, Eyes: Negative for injury, juani pain, redness, and discharge, ENT: Negative for injury, pain, and discharge, Neck: Negative for injury, pain, and swelling, Cardiovascular: Negative for chest pain, palpitations, and edema, Respiratory: Negative for shortness of breath, cough, wheezing, and pleuritic chest pain, Abdomen/GI: Negative for abdominal pain, nausea, vomiting, diarrhea, and constipation, Back: Negative for injury and pain, MS/Extremity: Negative for injury and deformity, Skin: Negative for injury, rash, and discoloration, Neuro: Negative for headache, weakness, numbness, tingling, and seizure, Psych: Negative for depression, anxiety, suicide ideation, homicidal ideation, and hallucinations, Allergy/Immunology: Negative for hives, rash, and allergies, Endocrine: Negative for neck swelling, polydipsia, polyuria, polyphagia, and marked weight changes, Hematologic/Lymphatic: Negative for swollen nodes, abnormal bleeding, and unusual bruising. 01:54 : Positive for urinary symptoms, urinary frequency, burning with urination, difficulty urinating. Exam: 01:54 Constitutional: This is a well developed, well nourished patient who is awake, alert, juani and in no acute distress. Head/Face: Normocephalic, atraumatic. Eyes: Pupils equal round and reactive to light, extra-ocular motions intact. Lids and lashes normal. Conjunctiva and sclera are non-icteric and not injected. Cornea within normal limits. Periorbital areas with no swelling, redness, or edema. ENT: Nares patent. No nasal discharge, no septal abnormalities noted. Tympanic membranes are normal and external auditory canals are clear. Oropharynx with no redness, swelling, or masses, exudates, or evidence of obstruction, uvula midline. Mucous membranes moist. Neck: Trachea midline, no thyromegaly or masses palpated, and no cervical lymphadenopathy. Supple, full range of motion without nuchal rigidity, or vertebral point tenderness. No Meningismus. Chest/axilla: Normal chest wall appearance and motion. Nontender with no deformity. No lesions are appreciated. Cardiovascular: Regular rate and rhythm with a normal S1 and S2. No gallops, murmurs, or rubs. Normal PMI, no JVD. No pulse deficits. Respiratory: Lungs have equal breath sounds bilaterally, clear to auscultation and percussion. No rales, rhonchi or wheezes noted. No increased work of breathing, no retractions or nasal flaring. Abdomen/GI: Soft, non-tender, with normal bowel sounds. No distension or tympany. No guarding or rebound. No evidence of tenderness throughout. Back: No spinal tenderness. No costovertebral tenderness. Full range of motion. Female : Normal external genitalia. Skin: Warm, dry with normal turgor. Normal color with no rashes, no lesions, and no evidence of cellulitis. MS/ Extremity: Pulses equal, no cyanosis. Neurovascular intact. Full, normal range of motion. Neuro: Awake and alert, GCS 15, oriented to person, place, time, and situation. Cranial nerves II-XII grossly intact. Motor strength 5/5 in all extremities. Sensory grossly intact. Cerebellar exam normal. Normal gait. Psych: Awake, alert, with orientation to person, place and time. Behavior, mood, and affect are within normal limits. Vital Signs: 01:46 BP 232 / 111; Pulse 96; Resp 18; Temp 98.1(O); Pulse Ox 98% on R/A; Weight 61.23 kg ak1 (R); Height 5 ft. 8 in. (172.72 cm) (R); Pain 7/10; 02:00 BP 225 / 105; Pulse 89; Resp 18; Temp 98.1(O); Pulse Ox 98% on R/A; ak1 02:05 BP 207 / 105; Pulse 90; Resp 18; Pulse Ox 98% on R/A; ak1 01:46 Body Mass Index 20.53 (61.23 kg, 172.72 cm) [facility] MDM: 01:38 Patient medically screened. [facility] 01:54 Data reviewed: vital signs, nurses notes, lab test result(s). [facility] 03/22 01:40 Order name: Urine Culture [facility] 03/22 01:52 Order name: Urine Dipstick--Ancillary (enter results) [facility] 03/22 01:40 Order name: Urine Dipstick-Ancillary (obtain specimen); Complete Time: 01:51 [facility] 03/22 01:57 Order name: Vital Signs; Complete Time: 02:00 juani Administered Medications: 01:59 Drug: cloNIDine 0.1 mg Route: PO; ak1 01:59 Drug: Cipro 500 mg Route: PO; ak1 02:04 Drug: Norvasc 10 mg Route: PO; ak1 Disposition: 03/22/18 02:07 Discharged to Home. Impression: Dysuria, Essential (primary) hypertension, Kyphosis and lordosis. - Condition is Stable. - Discharge Instructions: Dysuria, Hypertension, Hypertension, Qikp-pp-Oivw, How to Take Your Blood Pressure, Ftby-bo-Lqzz, Managing Your High Blood Pressure. - Prescriptions for Cipro 250 mg Oral Tablet - take 1 tablet by ORAL route every 12 hours; 14 tablet. Norvasc 5 mg Oral Tablet - take 1 tablet by ORAL route once daily; 20 tablet. Pyridium 200 mg Oral Tablet - take 1 tablet by ORAL route every 8 hours for 3 days; 9 tablet. - Medication Reconciliation Form, Thank You Letter, Antibiotic Education, Prescription Opioid Use form. - Follow up: Private Physician; When: 2 - 3 days; Reason: Recheck today's complaints, Continuance of care, Re-evaluation by your physician. Follow up: Pasha Benoit; When: 2 - 3 days; Reason: Recheck today's complaints, Re-evaluation by your physician. - Problem is new. - Symptoms have improved. Signatures: Dispatcher [employer] Ronny Petersen MD MD cha Krenek, Amber, RN RN ak1
--- NOTE | 2018-03-22 02:08 | ER ---
Nurse's Notes [facility] Name: Gloria Armenta Age: 82 yrs Sex: Female : 1935 Arrival Date: 03/22/2018 Time: 01:14 Bed 6 Private MD: Diagnosis: Dysuria;Essential (primary) hypertension;Kyphosis and lordosis Presentation: 03/22 01:45 Presenting complaint: Patient states: burning with urination that started this morning. ak1 Transition of care: patient was not received from another setting of care. Onset of symptoms was March 21, 2018. Initial Sepsis Screen: Does the patient meet any 2 criteria? No. Patient's initial sepsis screen is negative. Does the patient have a suspected source of infection? No. Patient's initial sepsis screen is negative. Care prior to arrival: None. 01:45 Method Of Arrival: Wheelchair ak1 01:45 Acuity: AURELIO 4 ak1 Triage Assessment: 01:46 General: Appears in no apparent distress. well groomed, Behavior is calm, cooperative. ak1 Pain: Complains of pain in pelvis. EENT: No signs and/or symptoms were reported regarding the EENT system. Neuro: Level of Consciousness is awake, alert, obeys commands, Oriented to person, place, time, situation, Deputy Coroner are equal bilaterally Moves all extremities. Gait is shuffling, Speech is normal, Facial symmetry appears normal. Cardiovascular: No deficits noted. Respiratory: No deficits noted. GI: No signs and/or symptoms were reported involving the gastrointestinal system. : Reports burning with urination, since this morning. Derm: No signs and/or symptoms reported regarding the dermatologic system. Musculoskeletal: No signs and/or symptoms reported regarding the musculoskeletal system. Historical: - Allergies: 01:51 Aspirin; ak1 01:51 Cefaclor; ak1 01:51 Celecoxib; ak1 01:51 Cephalexin; ak1 01:51 CEPHALOSPORINS; ak1 01:51 Chlorpromazine; ak1 01:51 chlorpromazine HCl; ak1 01:51 esomeprazole mag; ak1 01:51 Ketorolac; ak1 01:51 ketorolac tromethamine; ak1 01:51 Meperidine; ak1 01:51 Morphine; ak1 01:51 prochlorperazine Edisylate; ak1 01:51 Prochlorperazine Maleate; ak1 01:51 Rofecoxib; ak1 01:51 Sulfa (Sulfonamide Antibiotics); ak1 01:51 Sumatriptan Succinate; ak1 01:51 SUMATRIPTAN; ak1 - Home Meds: 01:51 high blood pressure [Active]; ak1 - PMHx: 01:51 Chronic headaches; Chronic pain; ak1 - Immunization history:: Adult Immunizations unknown. - Social history:: Smoking status: Patient/guardian denies using tobacco. - Family history:: not pertinent. Screenin:48 Abuse screen: Denies threats or abuse. Denies injuries from another. Nutritional ak1 screening: No deficits noted. Tuberculosis screening: No symptoms or risk factors identified. Fall Risk Gait- Weak (10 pts.). Assessment: 02:00 Reassessment: Patient appears in no apparent distress at this time. No changes from ak1 previously documented assessment. Patient is alert, oriented x 3, equal unlabored respirations, skin warm/dry/pink. see triage assessment. Vital Signs: 01:46 BP 232 / 111; Pulse 96; Resp 18; Temp 98.1(O); Pulse Ox 98% on R/A; Weight 61.23 kg ak1 (R); Height 5 ft. 8 in. (172.72 cm) (R); Pain 7/10; 02:00 BP 225 / 105; Pulse 89; Resp 18; Temp 98.1(O); Pulse Ox 98% on R/A; ak1 02:05 BP 207 / 105; Pulse 90; Resp 18; Pulse Ox 98% on R/A; ak1 01:46 Body Mass Index 20.53 (61.23 kg, 172.72 cm) ak1 ED Course: 01:14 Patient arrived in ED. al2 01:38 Ronny Arguelles MD is Attending Physician. juani 01:45 Marsha Miles RN is Primary Nurse. ak1 01:46 Triage completed. ak1 01:48 Patient has correct armband on for positive identification. Bed in low position. Call ak1 light in reach. Side rails up X 1. Pulse ox on. NIBP on. 01:51 Arm band placed on Patient placed in an exam room, on a stretcher, on pulse oximetry, ak1 Patient notified of wait time. 02:00 No provider procedures requiring assistance completed. ak1 02:07 Pasha Benoit MD is Referral Physician. [facility] 02:21 Patient did not have IV access during this emergency room visit. ak1 Administered Medications: 01:59 Drug: cloNIDine 0.1 mg Route: PO; ak1 01:59 Drug: Cipro 500 mg Route: PO; ak1 02:04 Drug: Norvasc 10 mg Route: PO; ak1 Outcome: 02:07 Discharge ordered by . [facility] 02:21 Discharged to home via wheelchair, with family. ak1 02:21 Condition: stable 02:21 Discharge instructions given to patient, Instructed on discharge instructions, follow up and referral plans. no drinking with medication, no driving heavy equipment, medication usage, Demonstrated understanding of instructions, follow-up care, medications, Prescriptions given X 3. 02:21 Patient left the ED. ak1 Addendum: 03/26/2018 08:01 Addendum: Culture Results: Positive urine culture. No further action required. Bacteria s s sensitive to prescribed antibiotic. Signatures: Ronny Arguelles MD MD cha Smirch, Shelby, RN RN Marsha Miles RN RN ak1 Jena Abraham
[2018-03-22 02:26] VITALS: TEMP 98.1; O2SAT 98
[2018-03-22 02:28] VITALS: BP 207/105
[2018-03-22 03:06] LABS: Urine Blood NEGATIVE (NEG); Urine Glucose NEGATIVE (NEG); Urine Protein NEGATIVE (NEG); Urine Specific Gravity 1.015 (1.005-1.030)
== END 2018-03-22 02:21 | disposition home or self-care (01) ==
LOC: ER 01:09
DX: R30.0 Dysuria (principal); I10 Essential (primary) hypertension; M40.209 Unspecified kyphosis, site unspecified; M40.50 Lordosis, unspecified, site unspecified
CPT/HCPCS: 81003; 87077; 87086; 87088; 87186; 99283

== ENCOUNTER 2018-03-29 16:21 | Emergency (ER) | payer OTHER, SELFPAY ==
--- OUTSIDE RECORDS SUMMARY | 2018-03-29 16:24 | XMS REPORT ---
:1935 [facility] Address [address] [place] [address] [address] [place] [address] Care Team Providers Name Role Phone NICHOLE PEREZ Unavailable Unavailable Problems This patient has no known problems. Allergies, Adverse Reactions, Alerts This patient has no known allergies or adverse reactions. Medications This patient has no known medications. Results Test Description Test Time Test Comments Text Results Atomic Results Result Comments BLOOD CULTURE 2017-12-22 05:01:00 Test Item Value Reference Range Comments CULTURE (BEAKER) (test iexk=0467) No growth in 5 days [id number] 11:31:00 Test Item Value Reference Range Comments MAGNESIUM (BEAKER) (test 2.2 mg/dL 1.6-2.6 Specimen slightly hemolyzed nynz=416) BASIC METABOLIC [id number] 11:31:00 Test Item Value Reference Range Comments SODIUM (BEAKER) (test 139 meq/L 136-145 qdtc=695) POTASSIUM (BEAKER) (test 4.0 meq/L 3.5-5.1 Specimen slightly bvoj=636) hemolyzed CHLORIDE (BEAKER) (test 104 meq/L 98-107 dfxg=219) CO2 (BEAKER) (test 27 meq/L 22-29 zvma=667) BLOOD UREA NITROGEN 7 mg/dL 7-21 (BEAKER) (test mgeo=033) CREATININE (BEAKER) (test 0.60 mg/dL 0.57-1.25 Specimen slightly ahkx=065) hemolyzed GLUCOSE RANDOM (BEAKER) 113 mg/dL 70-105 (test sfct=978) CALCIUM (BEAKER) (test 8.3 mg/dL 8.4-10.2 jhiv=531) EGFR (BEAKER) (test 95 mL/min/1.73 sq m ESTIMATED GFR IS NOT ciqh=4049) ACCURATE CREATININE CLEARANCE IN PREDICTING GLOMERULAR FILTRATION RATE. ESTIMATED GFR IS NOT APPLICABLE FOR DIALYSIS PATIENTS. URINE [id number] 09:10:00 Test Item Value Reference Range Comments CULTURE (BEAKER) (test tmdy=7573) Amikacin (test code=1) Aztreonam (test code=32) Cefepime (test code=51) Cefoxitin (test code=68) Ceftazidime (test code=27) Ceftriaxone (test code=52) Ertapenem (test code=38) Gentamicin (test code=18) Levofloxacin (test code=22) Meropenem (test code=34) Nitrofurantoin (test code=23) Piperacillin + Tazobactam (test code=29) Tetracycline (test code=2) Tobramycin (test code=25) Trimethoprim + Sulfamethoxazole (test code=47) CULTURE (BEAKER) (test dbse=7971) >100,000 col/mL Citrobacter braakii CBC W/PLT COUNT & AUTO [id number] 07:05:00 Test Item Value Reference Range Comments WHITE BLOOD CELL COUNT (BEAKER) (test cqld=121) 7.5 K/ L 3.5-10.5 RED BLOOD CELL COUNT (BEAKER) (test kokc=520) 4.30 M/ L 3.93-5.22 HEMOGLOBIN (BEAKER) (test vsyh=057) 10.1 GM/DL 11.2-15.7 HEMATOCRIT (BEAKER) (test ixtv=385) 32.6 % 34.1-44.9 MEAN CORPUSCULAR VOLUME (BEAKER) (test gpig=157) 75.8 fL 79.4-94.8 MEAN CORPUSCULAR HEMOGLOBIN (BEAKER) (test 23.5 pg 25.6-32.2 rngr=326) MEAN CORPUSCULAR HEMOGLOBIN CONC (BEAKER) (test 31.0 GM/DL 32.2-35.5 pbej=108) RED CELL DISTRIBUTION WIDTH (BEAKER) (test 14.1 % 11.7-14.4 hldu=070) PLATELET COUNT (BEAKER) (test gjkt=039) 289 K/CU MM 150-450 MEAN PLATELET VOLUME (BEAKER) (test rrcg=310) 9.1 fL 9.4-12.3 NUCLEATED RED BLOOD CELLS (BEAKER) (test 0 /100 WBC 0-0 shkm=105) NEUTROPHILS RELATIVE PERCENT (BEAKER) (test 73 % fbju=387) LYMPHOCYTES RELATIVE PERCENT (BEAKER) (test 15 % fhrq=328) MONOCYTES RELATIVE PERCENT (BEAKER) (test 9 % yzjo=413) EOSINOPHILS RELATIVE PERCENT (BEAKER) (test 2 % cfrr=539) BASOPHILS RELATIVE PERCENT (BEAKER) (test 0 % sppl=097) NEUTROPHILS ABSOLUTE COUNT (BEAKER) (test 5.50 K/ L 1.56-6.13 kgkk=540) LYMPHOCYTES ABSOLUTE COUNT (BEAKER) (test 1.12 K/ L 1.18-3.74 kdzy=515) MONOCYTES ABSOLUTE COUNT (BEAKER) (test 0.67 K/ L 0.24-0.36 aclh=909) EOSINOPHILS ABSOLUTE COUNT (BEAKER) (test 0.16 K/ L 0.04-0.36 wuca=304) BASOPHILS ABSOLUTE COUNT (BEAKER) (test 0.03 K/ L 0.01-0.08 zhma=047) IMMATURE GRANULOCYTES-RELATIVE PERCENT (BEAKER) 0 % 0-1 (test cpro=2708) [id number] 08:15:00 Test Item Value Reference Range Comments MAGNESIUM (BEAKER) (test qmvx=189) 1.7 mg/dL 1.6-2.6 CBC W/PLT COUNT & AUTO [id number] 04:24:00 Test Item Value Reference Range Comments WHITE BLOOD CELL COUNT (BEAKER) (test qyyr=221) 6.7 K/ L 3.5-10.5 RED BLOOD CELL COUNT (BEAKER) (test tylg=750) 3.69 M/ L 3.93-5.22 HEMOGLOBIN (BEAKER) (test vdnv=310) 8.6 GM/DL 11.2-15.7 HEMATOCRIT (BEAKER) (test udpv=131) 28.5 % 34.1-44.9 MEAN CORPUSCULAR VOLUME (BEAKER) (test mydf=755) 77.2 fL 79.4-94.8 MEAN CORPUSCULAR HEMOGLOBIN (BEAKER) (test 23.3 pg 25.6-32.2 prvg=000) MEAN CORPUSCULAR HEMOGLOBIN CONC (BEAKER) (test 30.2 GM/DL 32.2-35.5 bvao=993) RED CELL DISTRIBUTION WIDTH (BEAKER) (test 13.7 % 11.7-14.4 deno=351) PLATELET COUNT (BEAKER) (test mypu=395) 249 K/CU MM 150-450 MEAN PLATELET VOLUME (BEAKER) (test chmq=078) 8.8 fL 9.4-12.3 NUCLEATED RED BLOOD CELLS (BEAKER) (test 0 /100 WBC 0-0 dtrt=980) NEUTROPHILS RELATIVE PERCENT (BEAKER) (test 64 % othx=826) LYMPHOCYTES RELATIVE PERCENT (BEAKER) (test 21 % yjtk=086) MONOCYTES RELATIVE PERCENT (BEAKER) (test 12 % xlmk=060) EOSINOPHILS RELATIVE PERCENT (BEAKER) (test 3 % kvza=672) BASOPHILS RELATIVE PERCENT (BEAKER) (test 0 % nfpc=306) NEUTROPHILS ABSOLUTE COUNT (BEAKER) (test 4.23 K/ L 1.56-6.13 awfa=959) LYMPHOCYTES ABSOLUTE COUNT (BEAKER) (test 1.39 K/ L 1.18-3.74 zron=498) MONOCYTES ABSOLUTE COUNT (BEAKER) (test 0.80 K/ L 0.24-0.36 beda=169) EOSINOPHILS ABSOLUTE COUNT (BEAKER) (test 0.20 K/ L 0.04-0.36 hugm=082) BASOPHILS ABSOLUTE COUNT (BEAKER) (test 0.02 K/ L 0.01-0.08 xtqt=594) IMMATURE GRANULOCYTES-RELATIVE PERCENT (BEAKER) 0 % 0-1 (test lkkn=4606) BASIC METABOLIC [id number] 04:19:00 Test Item Value Reference Range Comments SODIUM (BEAKER) (test 139 meq/L 136-145 vcnw=228) POTASSIUM (BEAKER) (test 3.1 meq/L 3.5-5.1 yxuu=624) CHLORIDE (BEAKER) (test 103 meq/L 98-107 xrzt=075) CO2 (BEAKER) (test 29 meq/L 22-29 aofi=625) BLOOD UREA NITROGEN 12 mg/dL 7-21 (BEAKER) (test ysoy=730) CREATININE (BEAKER) (test 0.65 mg/dL 0.57-1.25 ifqf=110) GLUCOSE RANDOM (BEAKER) 91 mg/dL 70-105 (test hiul=249) CALCIUM (BEAKER) (test 8.1 mg/dL 8.4-10.2 jlwx=139) EGFR (BEAKER) (test 87 mL/min/1.73 sq m ESTIMATED GFR IS NOT optf=2778) ACCURATE CREATININE CLEARANCE IN PREDICTING GLOMERULAR FILTRATION RATE. ESTIMATED GFR IS NOT APPLICABLE FOR DIALYSIS PATIENTS. EEG MONITORING WITH VIDEO RECORDING EACH 24 [id number] 16:19:00Addendum BeginsAddendum:Start time: 0645Stop time: 1613 There [...] 12/16/2017 to DATE OF REPORT 12/16/17 ACC: [id number] EE-[id number] Start time: 22: 43 Stop time: 06:45 ICD-10: G93.40 CPT Code: 37644 HISTORY: 82 yo F with history of [...] Fellow Gely Cleary MD, MS Epilepsy/Neurophysiology Attending [facility] METABOLIC [id number] 04:38:00 Test Item Value Reference Range Comments SODIUM (BEAKER) (test 142 meq/L 136-145 vmhz=904) POTASSIUM (BEAKER) (test 3.0 meq/L 3.5-5.1 rbid=048) CHLORIDE (BEAKER) (test 104 meq/L 98-107 stjn=939) CO2 (BEAKER) (test 31 meq/L 22-29 wkmo=795) BLOOD UREA NITROGEN 13 mg/dL 7-21 (BEAKER) (test pitu=382) CREATININE (BEAKER) (test 0.64 mg/dL 0.57-1.25 gnli=305) GLUCOSE RANDOM (BEAKER) 122 mg/dL 70-105 (test lysb=224) CALCIUM (BEAKER) (test 8.1 mg/dL 8.4-10.2 jelu=263) EGFR (BEAKER) (test 89 mL/min/1.73 sq m ESTIMATED GFR IS NOT trzc=3128) ACCURATE CREATININE CLEARANCE IN PREDICTING GLOMERULAR FILTRATION RATE. ESTIMATED GFR IS NOT APPLICABLE FOR DIALYSIS PATIENTS. CBC W/PLT COUNT & AUTO [id number] 04:03:00 Test Item Value Reference Range Comments WHITE BLOOD CELL COUNT (BEAKER) (test ojjd=673) 8.6 K/ L 3.5-10.5 RED BLOOD CELL COUNT (BEAKER) (test xjpk=683) 3.94 M/ L 3.93-5.22 HEMOGLOBIN (BEAKER) (test ocap=607) 9.1 GM/DL 11.2-15.7 HEMATOCRIT (BEAKER) (test tsmf=035) 30.3 % 34.1-44.9 MEAN CORPUSCULAR VOLUME (BEAKER) (test axns=896) 76.9 fL 79.4-94.8 MEAN CORPUSCULAR HEMOGLOBIN (BEAKER) (test 23.1 pg 25.6-32.2 cekp=556) MEAN CORPUSCULAR HEMOGLOBIN CONC (BEAKER) (test 30.0 GM/DL 32.2-35.5 mtej=453) RED CELL DISTRIBUTION WIDTH (BEAKER) (test 13.4 % 11.7-14.4 czbi=228) PLATELET COUNT (BEAKER) (test xbwt=173) 287 K/CU MM 150-450 MEAN PLATELET VOLUME (BEAKER) (test svyz=783) 8.7 fL 9.4-12.3 NUCLEATED RED BLOOD CELLS (BEAKER) (test 0 /100 WBC 0-0 jcth=114) NEUTROPHILS RELATIVE PERCENT (BEAKER) (test 74 % mtdw=570) LYMPHOCYTES RELATIVE PERCENT (BEAKER) (test 16 % xxzx=759) MONOCYTES RELATIVE PERCENT (BEAKER) (test 9 % rhqp=135) EOSINOPHILS RELATIVE PERCENT (BEAKER) (test 1 % yjaa=021) BASOPHILS RELATIVE PERCENT (BEAKER) (test 0 % oeda=365) NEUTROPHILS ABSOLUTE COUNT (BEAKER) (test 6.35 K/ L 1.56-6.13 wnve=949) LYMPHOCYTES ABSOLUTE COUNT (BEAKER) (test 1.35 K/ L 1.18-3.74 tiqm=590) MONOCYTES ABSOLUTE COUNT (BEAKER) (test 0.80 K/ L 0.24-0.36 hatj=703) EOSINOPHILS ABSOLUTE COUNT (BEAKER) (test 0.08 K/ L 0.04-0.36 czpn=292) BASOPHILS ABSOLUTE COUNT (BEAKER) (test 0.03 K/ L 0.01-0.08 qhci=252) IMMATURE GRANULOCYTES-RELATIVE PERCENT (BEAKER) 0 % 0-1 (test jnqq=0681) EEG AWAKE AND [id number] 23:06:00For STAT EEG- after 5 PM weekdays, weekends and holidays, page the on-call water safety teacher Reason for exam:->seizure, AMSDATE OF TEST: 1/21/18DATE OF REPORT 12/16/17ACC: [id number]: [id number] time : 22:22Stop time: 22:43ICD-10: G93.40CPT Code: 52842 HISTORY: 82 yo F with history of [...] Fellow Nabila Sanchez M.D., FACNSProfessor of NeurologyDirector, [facility] EpilepsyPromedica Bay Park HospitalerBl[facility] Neurophysiology Lab Electronically signed by: NABILA Foreman 12/16/2017 11:06 PMRAD, CHEST, 1 VIEW, NON [id number] 21:41: 00Reason for exam:->concern for PNAShould this [...] MDReport Verified Date/Time: 12/16/2017 21:41:51 Reading Location: [address] Reading Room [id number] 19:57:00 Test Item Value Reference Range Comments FERRITIN (BEAKER) (test cguq=128) 36 ng/mL 5-275 VITAMIN D, [id number] 19:57:00 Test Item Value Reference Range Comments VITAMIN D 25-OH (BEAKER) (test fhrz=5866) 8.2 ng/mL 6.6-49.9 Effective 09/05/2017: Reference Range ChangeNew: 6.6-49.9 ng/mL Previous: 13.0 -47.8 ng/mLRecommended Vitamin D Target Range: 30.0-40.0 ng/mLTSH/FREE T4 IF [id number] 19:57:00 Test Item Value Reference Range Comments THYROID STIMULATING HORMONE (BEAKER) (test 3.15 uIU/mL 0.35-4.94 nnbh=373) VITAMIN B12 AND [id number] 19:57:00 Test Item Value Reference Range Comments VITAMIN B12 (BEAKER) (test dhwd=725) 376 pg/mL 213-816 FOLATE (BEAKER) (test sgql=766) 15.8 ng/mL >=7.0 URINALYSIS W/ [id number] 19:28:00 Test Item Value Reference Range Comments COLOR (BEAKER) (test ypoc=186) Yellow CLARITY (BEAKER) (test yjje=294) Clear SPECIFIC GRAVITY UA (BEAKER) (test uxwy=693) 1.017 1.001-1.035 PH UA (BEAKER) (test owiq=037) 5.5 5.0-8.0 PROTEIN UA (BEAKER) (test wvte=654) 50 mg/dL Negative GLUCOSE UA (BEAKER) (test bkam=230) Negative Negative KETONES UA (BEAKER) (test lfoa=994) 40 mg/dL Negative BILIRUBIN UA (BEAKER) (test yvwn=232) Negative Negative BLOOD UA (BEAKER) (test pimy=450) Negative Negative NITRITE UA (BEAKER) (test bvqt=743) Negative Negative LEUKOCYTE ESTERASE UA (BEAKER) (test fvjg=706) Moderate Negative UROBILINOGEN UA (BEAKER) (test eyly=033) 0.2 mg/dL 0.2-1.0 RBC UA (BEAKER) (test hymo=599) 1 /HPF WBC UA (BEAKER) (test uswo=347) 55 /HPF BACTERIA (BEAKER) (test syem=904) Occasional MUCUS (BEAKER) (test djnr=5426) Many HYALINE CASTS (BEAKER) (test oqyu=049) 10 /LPF SOURCE(BEAKER) (test qjye=9170) Urine, [place] IRON, TIBC, % SAT. (WITHOUT FERRITIN)2017-12-16 19:21:00 Test Item Value Reference Range Comments IRON (BEAKER) (test gjww=664) 24 ug/dL 40-160 TOTAL IRON BINDING CAPACITY (BEAKER) (test 309 ug/dL 250-450 kmmx=253) IRON % SATURATION (2) (BEAKER) (test zvzw=1680) 8 % 20-55 BASIC METABOLIC [id number] 19:20:00 Test Item Value Reference Range Comments SODIUM (BEAKER) (test 141 meq/L 136-145 fyfv=141) POTASSIUM (BEAKER) (test 4.0 meq/L 3.5-5.1 Specimen moderately zfza=597) hemolyzed CHLORIDE (BEAKER) (test 102 meq/L 98-107 nbra=720) CO2 (BEAKER) (test 30 meq/L 22-29 cuzi=967) BLOOD UREA NITROGEN 12 mg/dL 7-21 (BEAKER) (test roid=830) CREATININE (BEAKER) (test 0.66 mg/dL 0.57-1.25 Specimen moderately hwwh=235) hemolyzed GLUCOSE RANDOM (BEAKER) 102 mg/dL 70-105 (test gsov=865) CALCIUM (BEAKER) (test 8.3 mg/dL 8.4-10.2 gnsk=111) EGFR (BEAKER) (test 86 mL/min/1.73 sq m ESTIMATED GFR IS NOT cxry=8587) ACCURATE CREATININE CLEARANCE IN PREDICTING GLOMERULAR FILTRATION RATE. ESTIMATED GFR IS NOT APPLICABLE FOR DIALYSIS PATIENTS. CBC W/PLT COUNT & AUTO [id number] 19:06:00 Test Item Value Reference Range Comments WHITE BLOOD CELL COUNT (BEAKER) (test dqni=700) 8.2 K/ L 3.5-10.5 RED BLOOD CELL COUNT (BEAKER) (test oxcn=195) 4.05 M/ L 3.93-5.22 HEMOGLOBIN (BEAKER) (test gjnf=463) 9.4 GM/DL 11.2-15.7 HEMATOCRIT (BEAKER) (test lrdl=954) 30.9 % 34.1-44.9 MEAN CORPUSCULAR VOLUME (BEAKER) (test ptsa=590) 76.3 fL 79.4-94.8 MEAN CORPUSCULAR HEMOGLOBIN (BEAKER) (test 23.2 pg 25.6-32.2 prhm=369) MEAN CORPUSCULAR HEMOGLOBIN CONC (BEAKER) (test 30.4 GM/DL 32.2-35.5 tcfs=456) RED CELL DISTRIBUTION WIDTH (BEAKER) (test 13.6 % 11.7-14.4 weal=241) PLATELET COUNT (BEAKER) (test fyql=183) 301 K/CU MM 150-450 MEAN PLATELET VOLUME (BEAKER) (test wevb=958) 8.7 fL 9.4-12.3 NUCLEATED RED BLOOD CELLS (BEAKER) (test 0 /100 WBC 0-0 yysg=556) NEUTROPHILS RELATIVE PERCENT (BEAKER) (test 78 % pwnj=525) LYMPHOCYTES RELATIVE PERCENT (BEAKER) (test 13 % htek=099) MONOCYTES RELATIVE PERCENT (BEAKER) (test 9 % ldwq=388) EOSINOPHILS RELATIVE PERCENT (BEAKER) (test 1 % ybcg=836) BASOPHILS RELATIVE PERCENT (BEAKER) (test 0 % zibo=113) NEUTROPHILS ABSOLUTE COUNT (BEAKER) (test 6.35 K/ L 1.56-6.13 qdbp=634) LYMPHOCYTES ABSOLUTE COUNT (BEAKER) (test 1.06 K/ L 1.18-3.74 ncvc=427) MONOCYTES ABSOLUTE COUNT (BEAKER) (test 0.70 K/ L 0.24-0.36 kwml=897) EOSINOPHILS ABSOLUTE COUNT (BEAKER) (test 0.04 K/ L 0.04-0.36 bwmx=083) BASOPHILS ABSOLUTE COUNT (BEAKER) (test 0.03 K/ L 0.01-0.08 nmjt=771) IMMATURE GRANULOCYTES-RELATIVE PERCENT (BEAKER) 0 % 0-1 (test vbuu=1067)
--- OUTSIDE RECORDS SUMMARY | 2018-03-29 16:24 | XMS REPORT | Clinical Summary ---
:1935 Author Organization [facility] Address [address] [place] [address] Phone Care Team Providers Name Role Phone [...] type;Hypothyroidism, unspecified type;Acute cystitis without hematuria after 03/28/2017 Social History Tobacco Use Types Packs/Day Years Used Date Never Smoker Smokeless Tobacco: Never Used Sex Assigned at Date Recorded Not on file Last Filed Vital Signs Vital Sign Reading Time Taken Blood Pressure 157/77 12/20/2017 11:34 AM DIRECTOR OF SALES Pulse 76 12/20/2017 11:34 AM [employer]OR OF SALES Temperature 36.5 C (97.7 F) 12/20/2017 11:34 AM DIRECTOR OF SALES Respiratory Rate 18 12/20/2017 11:34 AM DIRECTOR OF SALES Oxygen Saturation 98% 12/20/2017 11:34 AM DIRECTOR OF SALES Inhaled Oxygen Concentration - - Weight 54 kg (119 lb) 12/20/2017 5:00 AM DIRECTOR OF SALES Height 157.5 cm (5' 2") 12/16/2017 5:25 PM DIRECTOR OF SALES Body Mass Index 21.77 12/20/2017 5:00 AM DIRECTOR OF SALES Plan of Treatment Not on file Results RHYTHM STRIP - SCAN (12/21/2017 2:41 PM)Magnesium (12/19/2017 7:31 AM)Only the most recent of2 resultswithin the time period is included. Component Value Ref Range Magnesium 2.2Comment: Specimen slightly hemolyzed 1.6 - 2.6 mg/dL Specimen Performing Laboratory Blood - Line, Venous [facility] [address] [address] Basic Metabolic Panel (12/19/2017 7:31 AM)Only the [...] Specimen Performing Laboratory Blood - Line, Venous [address] [address] CBC with platelet count + automated diff [...] Specimen Performing Laboratory Blood - Line, Venous [address] [address] CBC with platelet count + automated diff (12/19/2017 6:58 AM)Only the most recent of4 resultswithin the time period is included. Specimen Performing Laboratory Blood Narrative The following orders were created for panel order CBC with platelet count + automated diff. Procedure Abnormality Status --------- ------ CBC with platelet count ...[[id number]]AbnormalFinal result Please view results for these tests [...] to 12/17/2017 DATE OF REPORT 12/16/17 ACC: [id number] Start time: 22:43 Stop time: 06:45 ICD-10: G93.40 CPT Code: 60501 HISTORY: 82 yo F with history of chronic pain, chronic Lozano, osteoporosis, HTN, who was transferred from [facility] for AMS and seizures. UDS + [...] External Ris In - 12/17/2017 4:19 PM DIRECTOR OF SALES Addendum Begins Addendum: Start time: 0645 Stop [...] to 12/17/2017 DATE OF REPORT 12/16/17 ACC: [id number] Start time: 22:43 Stop time: 06:45 ICD-10: G93.40 CPT Code: 32274 HISTORY: 82 yo F with history of [...] TEST: 12/16/17 DATE OF REPORT 12/16/17 ACC: [id number] Start time: 22:22 Stop time: 22:43 ICD-10: G93.40 CPT Code: 30405 HISTORY: 82 yo F with history of [...] Galeas MD Epilepsy Fellow Nabila Sanchez M.D., [facility] Professor of Neurology Director, [facility] Epilepsy [place], [facility] Neurophysiology Lab Procedure Note Interface, External Ris In - 12/16/2017 11:06 PM DIRECTOR OF SALES DATE OF TEST: 12/16/17 DATE OF REPORT 12/16/17 ACC: [id number] Start time: 22:22 Stop time: 22:43 ICD-10: G93.40 CPT Code: 62495 HISTORY: 82 yo F with history of chronic pain, chronic Lozano, osteoporosis, HTN, who was transferred from [facility] for AMS and seizures. UDS + [...] Galeas MD Epilepsy Fellow Nabila Sanchez M.D., [facility] Professor of Neurology Director, [facility] Epilepsy [place], [facility] Neurophysiology Lab chest 1 view [...] MD Report Verified Date/Time:12/16/2017 21:41:51 Reading Location: [address] Reading Room Procedure Note Interface, External Ris In - 12/16/2017 9:44 PM DIRECTOR OF SALES FINAL REPORT INDICATION: concern for PNA COMPARISON: None TECHNIQUE: Single frontal view of the chest. FINDINGS: Limited by severe scoliosis and contractures. Lungs and pleura: Clear lungs. No effusion. Heart and mediastinum: Normal heart size. Unremarkable mediastinal contours. Osseous structures: No acute abnormality. Other: None. IMPRESSION: No acute intrathoracic abnormality. Signed: JR Lamb Robert MD Report Verified Date/Time: 12/16/2017 21:41:51 Reading Location: [address] Reading Room Urine culture (12/16/2017 8:45 PM) Component Value Ref Range Result Result >100,000 col/mL Citrobacter braakii (A) Specimen Performing Laboratory Urine - Urine, [place] [address] [address] Organism Antibiotic Method Susceptibility Citrobacter braakii Amikacin [...] 15.8 >=7.0 ng/mL Specimen Performing Laboratory Blood [address] [address] TSH/Free T4 If Indicated (12/16/2017 6:50 PM) Component Value Ref Range TSH 3.15 0.35 - 4.94 uIU/mL Specimen Performing Laboratory Blood [address] [address] Iron, TIBC, % sat. (without ferritin) (12/16/2017 6:50 PM) Component Value Ref Range Iron 24 (L) 40 - 160 ug/dL TIBC 309 250 - 450 ug/dL Iron % Saturation 8 (L) 20 - 55 % Specimen Performing Laboratory [address] [address] Vitamin D, 25-Hydroxy (12/16/2017 6:50 PM) Component Value Ref Range Vitamin D 25-Hydroxy 8.2 6.6 - 49.9 ng/mL Specimen Performing Laboratory Blood [address] [address] Narrative Effective 09/05/2017: Reference Range Change New: 6.6-49.9 ng/mL Previous: 13.0-47.8 ng/mL Recommended Vitamin D Target Range: 30.0-40.0 ng/mL Blood culture (12/16/2017 6:50 PM) Component Value Ref Range Result No growth in 5 days Specimen Performing Laboratory Blood - Arm, Right [address] [address] Urinalysis w/ Microscopic (12/16/2017 6:50 PM) Component Value Ref Range Color, UA Yellow Clarity, UA Clear Specific [place], UA 1.017 1.001 - 1.035 pH, UA [...] Specimen Performing Laboratory Urine - Urine, [place] [address] [address] Ferritin (12/16/2017 6:50 PM) Component Value Ref Range Ferritin 36 5 - 275 ng/mL Specimen Performing Laboratory Blood [address] [address] after 03/28/2017
[2018-03-29] MEDS ORDERED: MEPERIDINE HCL 25 MG/0.5 ML ONE (17:40)
[2018-03-29] MEDS ORDERED: PROMETHAZINE 25 MG/ML VIAL ONE (17:40)
--- NOTE | 2018-03-29 18:50 | EDPHYS ---
Physician Documentation [facility] Name: Gloria Armenta Age: 82 yrs Sex: Female : 1935 Arrival Date: 03/29/2018 Time: 16:23 Bed 17 Private MD: ED Physician Gilson Ng HPI: 03/29 18:44 This 82 yrs old Female presents to ER via Wheelchair with complaints of wa Headache, Nausea. 18:44 The patient complains of pain to the generalized.. The patient describes the headache wa as aching, states gradual onset. has h/o migraines. this episode same. Onset: The symptoms/episode began/occurred yesterday. Associated signs and symptoms: Pertinent positives: nausea, Photophobia. Severity of symptoms: At its worst the pain was moderate, in the emergency department the pain is unchanged. Headache History: The patient has had previous headaches and this one is similar to previous episodes. The symptoms are alleviated by nothing. the symptoms are aggravated by nothing. The patient has experienced similar episodes in the past, multiple times. The patient has not recently seen a physician. Historical: - Allergies: 16:24 Aspirin; aa5 16:24 Cefaclor; aa5 16:24 Celecoxib; aa5 16:24 Cephalexin; aa5 16:24 CEPHALOSPORINS; aa5 16:24 Chlorpromazine; aa5 16:24 chlorpromazine HCl; aa5 16:24 esomeprazole mag; aa5 16:24 Ketorolac; aa5 16:24 ketorolac tromethamine; aa5 16:24 Meperidine; aa5 16:24 Morphine; aa5 16:24 prochlorperazine Edisylate; aa5 16:24 Prochlorperazine Maleate; aa5 16:24 Rofecoxib; aa5 16:24 Sulfa (Sulfonamide Antibiotics); aa5 16:24 SUMATRIPTAN; aa5 16:24 Sumatriptan Succinate; aa5 - PMHx: 16:24 Chronic headaches; Chronic pain; aa5 16:24 Hypertension; aa5 - Immunization history:: Adult Immunizations up to date. - Social history:: Smoking status: Patient/guardian denies using tobacco. ROS: 18:46 Constitutional: Negative for fever, chills, and weight loss, Eyes: Negative for injury, wa pain, redness, and discharge, ENT: Negative for injury, pain, and discharge, Neck: Negative for injury, pain, and swelling, Cardiovascular: Negative for chest pain, palpitations, and edema, Respiratory: Negative for shortness of breath, cough, wheezing, and pleuritic chest pain, Abdomen/GI: Negative for abdominal pain, nausea, vomiting, diarrhea, and constipation, Back: Negative for injury and pain, : Negative for injury, bleeding, discharge, and swelling, MS/Extremity: Negative for injury and deformity, Skin: Negative for injury, rash, and discoloration. 18:46 Neuro: Positive for headache. Exam: 18:46 Constitutional: This is a well developed, well nourished patient who is awake, alert, wa and in no acute distress. Head/Face: Normocephalic, atraumatic. Eyes: Pupils equal round and reactive to light, extra-ocular motions intact. Lids and lashes normal. Conjunctiva and sclera are non-icteric and not injected. Cornea within normal limits. Periorbital areas with no swelling, redness, or edema. ENT: Nares patent. No nasal discharge, no septal abnormalities noted. Tympanic membranes are normal and external auditory canals are clear. Oropharynx with no redness, swelling, or masses, exudates, or evidence of obstruction, uvula midline. Mucous membranes moist. Neck: Trachea midline, no thyromegaly or masses palpated, and no cervical lymphadenopathy. Supple, full range of motion without nuchal rigidity, or vertebral point tenderness. No Meningismus. Chest/axilla: Normal chest wall appearance and motion. Nontender with no deformity. No lesions are appreciated. Cardiovascular: Regular rate and rhythm with a normal S1 and S2. No gallops, murmurs, or rubs. Normal PMI, no JVD. No pulse deficits. Respiratory: Lungs have equal breath sounds bilaterally, clear to auscultation and percussion. No rales, rhonchi or wheezes noted. No increased work of breathing, no retractions or nasal flaring. Abdomen/GI: Soft, non-tender, with normal bowel sounds. No distension or tympany. No guarding or rebound. No evidence of tenderness throughout. Back: No spinal tenderness. No costovertebral tenderness. Full range of motion. Skin: Warm, dry with normal turgor. Normal color with no rashes, no lesions, and no evidence of cellulitis. MS/ Extremity: Pulses equal, no cyanosis. Neurovascular intact. Full, normal range of motion. Psych: Awake, alert, with orientation to person, place and time. Behavior, mood, and affect are within normal limits. 18:46 Neuro: Orientation: is normal, Mentation: is normal, Memory: is normal, Cranial nerves: grossly normal, Cerebellar function: is grossly normal, Motor: is normal. Vital Signs: 16:27 BP 126 / 79; Pulse 90; Resp 16 S; Temp 98.7(TE); Pulse Ox 97% on R/A; Weight 57.61 kg aa5 (R); Height 5 ft. 9 in. (175.26 cm) (R); Pain 8/10; 17:33 BP 150 / 77; Pulse 76; Resp 18; Pulse Ox 96% on R/A; mh5 18:18 BP 166 / 91; Pulse 75; Resp 18; Pulse Ox 96% on R/A; ed1 16:27 Body Mass Index 18.75 (57.61 kg, 175.26 cm) aa5 MDM: 16:38 Patient medically screened. wa 18:47 Differential diagnosis: migraines. similar episode to past. states phenergan and wa demerol is what works. will give a dose and reassess. Data reviewed: vital signs, nurses notes. Response to treatment: the patient's symptoms have resolved after treatment. Special discussion: MALIK resolved. pt wants T3's to go home. will script. f/u with neuro. 03/29 16:54 Order name: IV Start; Complete Time: 17:43 me Administered Medications: 17:43 Drug: Demerol 25 mg Route: IVP; Site: left forearm; ph 19:02 Follow up: Response: No adverse reaction; Pain is decreased ed1 17:43 Drug: Phenergan 12.5 mg Route: IVP; Site: left forearm; ph 19:02 Follow up: Response: No adverse reaction; Nausea is decreased ed1 Disposition: 03/29/18 18:50 Discharged to Home. Impression: Migraine. - Condition is Stable. - Discharge Instructions: Migraine Headache. - Prescriptions for Tylenol- Codeine #3 300-30 mg Oral Tablet - take 1 tablet by ORAL route every 6 hours As needed; 20 tablet. - Medication Reconciliation Form, Thank You Letter, Antibiotic Education, Prescription Opioid Use form. - Follow up: Faustino Desai MD; When: 2 - 3 days; Reason: Recheck today's complaints. - Problem is an acute exacerbation. - Symptoms have improved. - Notes: follow up with your neurologist for your headaches. return if worse Signatures: Greta West RN RN aa5 Breana Pham LVN DIRECTOR OF FIELD SERVICE ed1 Danielle Morin RN RN [facility], MD MD perez Riggins Corrections: (The following items were deleted from the chart) 19:02 18:50 03/29/2018 18:50 Discharged to Home. Impression: Migraine. Condition is Stable. ed1 Forms are Medication Reconciliation Form, Thank You Letter, Antibiotic Education, Prescription Opioid Use. Follow up: Faustino Desai; When: 2 - 3 days; Reason: Recheck today's complaints. Problem is an acute exacerbation. Symptoms have improved. wa
--- NOTE | 2018-03-29 18:50 | ER ---
Nurse's Notes [facility] Emergency Department Name: Gloria Armenta Age: 82 yrs Sex: Female : 1935 Arrival Date: 03/29/2018 Time: 16:23 Bed 17 Private MD: Diagnosis: Migraine Presentation: 03/29 16:26 Presenting complaint: Patient states: migraine and nausea that began today at 1100. aa5 Transition of care: patient was not received from another setting of care. Onset of symptoms was March 29, 2018. Initial Sepsis Screen: Does the patient meet any 2 criteria? No. Patient's initial sepsis screen is negative. Does the patient have a suspected source of infection? No. Patient's initial sepsis screen is negative. Care prior to arrival: None. 16:26 Method Of Arrival: Wheelchair aa5 16:26 Acuity: AURELIO 3 aa5 Historical: - Allergies: 16:24 Aspirin; aa5 16:24 Cefaclor; aa5 16:24 Celecoxib; aa5 16:24 Cephalexin; aa5 16:24 CEPHALOSPORINS; aa5 16:24 Chlorpromazine; aa5 16:24 chlorpromazine HCl; aa5 16:24 esomeprazole mag; aa5 16:24 Ketorolac; aa5 16:24 ketorolac tromethamine; aa5 16:24 Meperidine; aa5 16:24 Morphine; aa5 16:24 prochlorperazine Edisylate; aa5 16:24 Prochlorperazine Maleate; aa5 16:24 Rofecoxib; aa5 16:24 Sulfa (Sulfonamide Antibiotics); aa5 16:24 SUMATRIPTAN; aa5 16:24 Sumatriptan Succinate; aa5 - PMHx: 16:24 Chronic headaches; Chronic pain; aa5 16:24 Hypertension; aa5 - Immunization history:: Adult Immunizations up to date. - Social history:: Smoking status: Patient/guardian denies using tobacco. Screenin:38 Abuse screen: Denies threats or abuse. Denies injuries from another. Nutritional ed1 screening: No deficits noted. Tuberculosis screening: No symptoms or risk factors identified. Fall Risk Fall in past 12 months (25 points). No secondary diagnosis (0 pts). No IV (0 pts). Ambulatory Aid- Furniture (30 pts.). Gait- Weak (10 pts.). Mental Status- Oriented to own ability (0 pts). Total Gilbert Fall Scale indicates High Risk Score (45 or more points). Fall prevention measures have been instituted. Side Rails Up X 2 Placed Close to Nursing Station Frequent Obs/Assessments Occuring As available patient and family educated on Fall Prevention Program and Strategies. Assessment: 16:38 General: Appears uncomfortable, Behavior is calm, cooperative. Pain: Complains of pain ed1 in face Pain radiates to neck Pain currently is 8 out of 10 on a pain scale. Quality of pain is described as throbbing, Pain began 4 hours ago. Is continuous. Neuro: Level of Consciousness is awake, alert, obeys commands, Oriented to person, place, time, situation, Reports headache in entire parietal area, frontal area, occipital area, since 1100. Cardiovascular: Denies chest pain, Heart tones S1 S2 present. Respiratory: Airway is patent Respiratory effort is even, unlabored, Respiratory pattern is regular, symmetrical, Breath sounds are clear bilaterally. GI: Abdomen is flat, non-distended, Bowel sounds present X 4 quads. Abd is soft and non tender X 4 quads. Reports nausea. : No signs and/or symptoms were reported regarding the genitourinary system. EENT: No signs and/or symptoms were reported regarding the EENT system. Derm: Skin is fragile, is thin, with poor turgor Skin is dry, Skin is normal, Skin temperature is warm. Musculoskeletal: Capillary refill < 3 seconds, in bilateral fingers. 18:18 Reassessment: Patient appears in no apparent distress at this time. Patient and/or ed1 family updated on plan of care and expected duration. Pain level reassessed. Pt resting with eyes closed. 19:01 Reassessment: Patient appears in no apparent distress at this time. Patient and/or ed1 family updated on plan of care and expected duration. Pain level reassessed. Patient is alert, oriented x 3, equal unlabored respirations, skin warm/dry/pink. Patient states feeling better. Patient states symptoms have improved. Vital Signs: 16:27 BP 126 / 79; Pulse 90; Resp 16 S; Temp 98.7(TE); Pulse Ox 97% on R/A; Weight 57.61 kg aa5 (R); Height 5 ft. 9 in. (175.26 cm) (R); Pain 8/10; 17:33 BP 150 / 77; Pulse 76; Resp 18; Pulse Ox 96% on R/A; mh5 18:18 BP 166 / 91; Pulse 75; Resp 18; Pulse Ox 96% on R/A; ed1 16:27 Body Mass Index 18.75 (57.61 kg, 175.26 cm) aa5 ED Course: 16:23 Patient arrived in ED. aa5 16:27 Triage completed. aa5 16:27 Arm band placed on. aa5 16:38 Breana Pham LVN is Primary Nurse. ed1 16:38 Patient has correct armband on for positive identification. Bed in low position. Call ed1 light in reach. Side rails up X2. Pulse ox on. NIBP on. 16:39 Gilson Ng MD is Attending Physician. wa 17:06 Missed attempt(s): 22 gauge in right antecubital area. Bleeding controlled, band aid ed1 applied, catheter tip intact. 17:06 Missed attempt(s): 24 gauge in left wrist. Bleeding controlled, band aid applied, ed1 catheter tip intact. 17:32 Initial lab(s) drawn, by me, held in ED. Inserted saline lock: 24 gauge in left 5 forearm, using aseptic technique. Blood collected. 18:19 Appears to be sleeping. Awaiting re-evaluation by ER provider. ed1 18:49 Faustino Desai MD is Referral Physician. wa 19:01 No provider procedures requiring assistance completed. IV discontinued, intact, ed1 bleeding controlled, No redness/swelling at site. Pressure dressing applied. Administered Medications: 17:43 Drug: Demerol 25 mg Route: IVP; Site: left forearm; ph 19:02 Follow up: Response: No adverse reaction; Pain is decreased ed1 17:43 Drug: Phenergan 12.5 mg Route: IVP; Site: left forearm; ph 19:02 Follow up: Response: No adverse reaction; Nausea is decreased ed1 Outcome: 18:50 Discharge ordered by . wa 19:01 Discharged to home via wheelchair, with significant other. ed1 19:01 Condition: good 19:01 Discharge instructions given to patient, Instructed on discharge instructions, follow up and referral plans. medication usage, Demonstrated understanding of instructions, follow-up care, medications, Prescriptions given X 1. 19:02 Patient left the ED. ed1 Signatures: Greta West, RN RN aa5 Breana Pham LVN LVN ed1 Danielle Morin RN RN Tre, [facility]5 Gilson Ng MD MD wy
[2018-03-29 19:06] VITALS: TEMP 98.7
[2018-03-29 19:08] VITALS: O2SAT 96
[2018-03-29 19:09] VITALS: BP 166/91
== END 2018-03-29 19:02 | disposition home or self-care (01) ==
LOC: ER 16:21
DX: G43.909 Migraine, unspecified, not intractable, without status migrainosus (principal); R11.0 Nausea
CPT/HCPCS: 96374; 96375; 99284; J2175; J2550

== ENCOUNTER 2018-04-05 21:12 | Emergency (ER) | payer OTHER, SELFPAY ==
--- OUTSIDE RECORDS SUMMARY | 2018-04-05 21:14 | XMS REPORT | Clinical Summary ---
:1935 Author Organization [facility] Address [address] [place] [address] Phone Care Team Providers Name Role Phone [...] type;Hypothyroidism, unspecified type;Acute cystitis without hematuria after 04/04/2017 Social History Tobacco Use Types Packs/Day Years Used Date Never Smoker Smokeless Tobacco: Never Used Sex Assigned at Date Recorded Not on file Last Filed Vital Signs Vital Sign Reading Time Taken Blood Pressure 157/77 12/20/2017 11:34 AM MANAGER BALANCE Pulse 76 12/20/2017 11:34 AM MANAGER BALANCE Temperature 36.5 C (97.7 F) 12/20/2017 11:34 AM MANAGER BALANCE Respiratory Rate 18 12/20/2017 11:34 AM MANAGER BALANCE Oxygen Saturation 98% 12/20/2017 11:34 AM MANAGER BALANCE Inhaled Oxygen Concentration - - Weight 54 kg (119 lb) 12/20/2017 5:00 AM MANAGER BALANCE Height 157.5 cm (5' 2") 12/16/2017 5:25 PM MANAGER BALANCE Body Mass Index 21.77 12/20/2017 5:00 AM MANAGER BALANCE Plan of Treatment Not on file Results RHYTHM STRIP - SCAN (12/21/2017 2:41 PM)Magnesium (12/19/2017 7:31 AM)Only the most recent of2 resultswithin the time period is included. Component Value Ref Range Magnesium 2.2Comment: Specimen slightly hemolyzed 1.6 - 2.6 mg/dL Specimen Performing Laboratory Blood - Line, Venous [facility] [address] [address] Basic Metabolic Panel (12/19/2017 7:31 AM)Only the [...] Specimen Performing Laboratory Blood - Line, Venous [address] [address] CBC with platelet count + automated diff [...] Specimen Performing Laboratory Blood - Line, Venous [address] [address] CBC with platelet count + automated diff (12/19/2017 6:58 AM)Only the most recent of4 resultswithin the time period is included. Specimen Performing Laboratory Blood Narrative The following orders were created for panel order CBC with platelet count + automated diff. Procedure Abnormality Status --------- ------ CBC with platelet count ...[[id number]]AbnormalFinal result Please view results for these tests [...] to 12/17/2017 DATE OF REPORT 12/16/17 ACC: [id number] Start time: 22:43 Stop time: 06:45 ICD-10: G93.40 CPT Code: 56235 HISTORY: 82 yo F with history of chronic pain, chronic Lozano, osteoporosis, HTN, who was transferred from [facility] for AMS and seizures. UDS + [...] External Ris In - 12/17/2017 4:19 PM MANAGER BALANCE Addendum Begins Addendum: Start time: 0645 Stop [...] to 12/17/2017 DATE OF REPORT 12/16/17 ACC: [id number] EE-[id number] Start time: 22:43 Stop time: 06:45 ICD-10: G93.40 CPT Code: 68480 HISTORY: 82 yo F with history of [...] TEST: 12/16/17 DATE OF REPORT 12/16/17 ACC: [id number] EE-126 Start time: 22:22 Stop time: 22:43 ICD-10: G93.40 CPT Code: 93739 HISTORY: 82 yo F with history of [...] Galeas MD Epilepsy Fellow Nabila Sanchez M.D., [facility] Professor of Neurology Director, [facility] Epilepsy [place], [facility] Neurophysiology Lab Procedure Note Interface, External Ris In - 12/16/2017 11:06 PM MANAGER BALANCE DATE OF TEST: 12/16/17 DATE OF REPORT 12/16/17 ACC: [id number] EE-[id number] Start time: 22:22 Stop time: 22:43 ICD-10: G93.40 CPT Code: 25943 HISTORY: 82 yo F with history of chronic pain, chronic Lozano, osteoporosis, HTN, who was transferred from [facility] for AMS and seizures. UDS + [...] Galeas MD Epilepsy Fellow Nabila Sanchez M.D., [facility] Professor of Neurology Director, [facility] Epilepsy [place], [facility] Neurophysiology Lab chest 1 view portable / [...] MD Report Verified Date/Time:12/16/2017 21:41:51 Reading Location: [address] Reading Room Procedure Note Interface, External Ris In - 12/16/2017 9:44 PM MANAGER BALANCE FINAL REPORT INDICATION: concern for PNA COMPARISON: None TECHNIQUE: Single frontal view of the chest. FINDINGS: Limited by severe scoliosis and contractures. Lungs and pleura: Clear lungs. No effusion. Heart and mediastinum: Normal heart size. Unremarkable mediastinal contours. Osseous structures: No acute abnormality. Other: None. IMPRESSION: No acute intrathoracic abnormality. Signed: JR Lamb Robert MD Report Verified Date/Time: 12/16/2017 21:41:51 Reading Location: [address] Reading Room Urine culture (12/16/2017 8:45 PM) Component Value Ref Range Result Result >100,000 col/mL Citrobacter braakii (A) Specimen Performing Laboratory Urine - Urine, [place] [address] [address] Organism Antibiotic Method Susceptibility Citrobacter braakii Amikacin [...] 15.8 >=7.0 ng/mL Specimen Performing Laboratory Blood [address] [address] TSH/Free T4 If Indicated (12/16/2017 6:50 PM) Component Value Ref Range TSH 3.15 0.35 - 4.94 uIU/mL Specimen Performing Laboratory Blood [address] [address] Iron, TIBC, % sat. (without ferritin) (12/16/2017 6:50 PM) Component Value Ref Range Iron 24 (L) 40 - 160 ug/dL TIBC 309 250 - 450 ug/dL Iron % Saturation 8 (L) 20 - 55 % Specimen Performing Laboratory [address] [address] Vitamin D, 25-Hydroxy (12/16/2017 6:50 PM) Component Value Ref Range Vitamin D 25-Hydroxy 8.2 6.6 - 49.9 ng/mL Specimen Performing Laboratory Blood [address] [address] Narrative Effective 09/05/2017: Reference Range Change New: 6.6-49.9 ng/mL Previous: 13.0-47.8 ng/mL Recommended Vitamin D Target Range: 30.0-40.0 ng/mL Blood culture (12/16/2017 6:50 PM) Component Value Ref Range Result No growth in 5 days Specimen Performing Laboratory Blood - Arm, Right [address] [address] Urinalysis w/ Microscopic (12/16/2017 6:50 PM) Component Value Ref Range Color, UA Yellow Clarity, UA Clear Specific Tuttle, UA 1.017 1.001 - 1.035 pH, UA [...] Specimen Performing Laboratory Urine - Urine, Catal[place] [address] [address] Ferritin (12/16/2017 6:50 PM) Component Value Ref Range Ferritin 36 5 - 275 ng/mL Specimen Performing Laboratory Blood [address] [address] after 04/04/2017
--- OUTSIDE RECORDS SUMMARY | 2018-04-05 21:15 | XMS REPORT ---
:1935 Author Organization [facility] Address [address] [place] [address] [address] [place] [address] Care Team Providers Name Role Phone NICHOLE PEREZ Unavailable Unavailable Problems This patient has no known problems. Allergies, Adverse Reactions, Alerts This patient has no known allergies or adverse reactions. Medications This patient has no known medications. Results Test Description Test Time Test Comments Text Results Atomic Results Result Comments BLOOD CULTURE 2017-12-22 05:01:00 Test Item Value Reference Range Comments CULTURE (BEAKER) (test adwn=8756) No growth in 5 days [id number] 11:31:00 Test Item Value Reference Range Comments MAGNESIUM (BEAKER) (test 2.2 mg/dL 1.6-2.6 Specimen slightly hemolyzed ztnm=508) BASIC METABOLIC [id number] 11:31:00 Test Item Value Reference Range Comments SODIUM (BEAKER) (test 139 meq/L 136-145 papp=576) POTASSIUM (BEAKER) (test 4.0 meq/L 3.5-5.1 Specimen slightly dpya=570) hemolyzed CHLORIDE (BEAKER) (test 104 meq/L 98-107 gesl=069) CO2 (BEAKER) (test 27 meq/L 22-29 ixew=808) BLOOD UREA NITROGEN 7 mg/dL 7-21 (BEAKER) (test uobb=422) CREATININE (BEAKER) (test 0.60 mg/dL 0.57-1.25 Specimen slightly wwqm=206) hemolyzed GLUCOSE RANDOM (BEAKER) 113 mg/dL 70-105 (test fysx=172) CALCIUM (BEAKER) (test 8.3 mg/dL 8.4-10.2 wrdr=668) EGFR (BEAKER) (test 95 mL/min/1.73 sq m ESTIMATED GFR IS NOT hska=8090) ACCURATE CREATININE CLEARANCE IN PREDICTING GLOMERULAR FILTRATION RATE. ESTIMATED GFR IS NOT APPLICABLE FOR DIALYSIS PATIENTS. URINE [id number] 09:10:00 Test Item Value Reference Range Comments CULTURE (BEAKER) (test hfih=3816) Amikacin (test code=1) Aztreonam (test code=32) Cefepime (test code=51) Cefoxitin (test code=68) Ceftazidime (test code=27) Ceftriaxone (test code=52) Ertapenem (test code=38) Gentamicin (test code=18) Levofloxacin (test code=22) Meropenem (test code=34) Nitrofurantoin (test code=23) Piperacillin + Tazobactam (test code=29) Tetracycline (test code=2) Tobramycin (test code=25) Trimethoprim + Sulfamethoxazole (test code=47) CULTURE (BEAKER) (test pofw=2026) >100,000 col/mL Citrobacter braakii CBC W/PLT COUNT & AUTO [id number] 07:05:00 Test Item Value Reference Range Comments WHITE BLOOD CELL COUNT (BEAKER) (test vseb=926) 7.5 K/ L 3.5-10.5 RED BLOOD CELL COUNT (BEAKER) (test efhq=537) 4.30 M/ L 3.93-5.22 HEMOGLOBIN (BEAKER) (test ipyj=903) 10.1 GM/DL 11.2-15.7 HEMATOCRIT (BEAKER) (test ihuk=584) 32.6 % 34.1-44.9 MEAN CORPUSCULAR VOLUME (BEAKER) (test tnol=936) 75.8 fL 79.4-94.8 MEAN CORPUSCULAR HEMOGLOBIN (BEAKER) (test 23.5 pg 25.6-32.2 zdnm=827) MEAN CORPUSCULAR HEMOGLOBIN CONC (BEAKER) (test 31.0 GM/DL 32.2-35.5 jsff=897) RED CELL DISTRIBUTION WIDTH (BEAKER) (test 14.1 % 11.7-14.4 qnma=338) PLATELET COUNT (BEAKER) (test gqoe=595) 289 K/CU MM 150-450 MEAN PLATELET VOLUME (BEAKER) (test ggce=991) 9.1 fL 9.4-12.3 NUCLEATED RED BLOOD CELLS (BEAKER) (test 0 /100 WBC 0-0 lond=250) NEUTROPHILS RELATIVE PERCENT (BEAKER) (test 73 % piyp=095) LYMPHOCYTES RELATIVE PERCENT (BEAKER) (test 15 % wpxa=531) MONOCYTES RELATIVE PERCENT (BEAKER) (test 9 % lxtj=790) EOSINOPHILS RELATIVE PERCENT (BEAKER) (test 2 % pclx=645) BASOPHILS RELATIVE PERCENT (BEAKER) (test 0 % xnbn=421) NEUTROPHILS ABSOLUTE COUNT (BEAKER) (test 5.50 K/ L 1.56-6.13 ylka=283) LYMPHOCYTES ABSOLUTE COUNT (BEAKER) (test 1.12 K/ L 1.18-3.74 tpiq=224) MONOCYTES ABSOLUTE COUNT (BEAKER) (test 0.67 K/ L 0.24-0.36 qwwr=987) EOSINOPHILS ABSOLUTE COUNT (BEAKER) (test 0.16 K/ L 0.04-0.36 csxt=989) BASOPHILS ABSOLUTE COUNT (BEAKER) (test 0.03 K/ L 0.01-0.08 gmiq=203) IMMATURE GRANULOCYTES-RELATIVE PERCENT (BEAKER) 0 % 0-1 (test pswq=5604) [id number] 08:15:00 Test Item Value Reference Range Comments MAGNESIUM (BEAKER) (test ntdn=856) 1.7 mg/dL 1.6-2.6 CBC W/PLT COUNT & AUTO [id number] 04:24:00 Test Item Value Reference Range Comments WHITE BLOOD CELL COUNT (BEAKER) (test khan=633) 6.7 K/ L 3.5-10.5 RED BLOOD CELL COUNT (BEAKER) (test flah=962) 3.69 M/ L 3.93-5.22 HEMOGLOBIN (BEAKER) (test xmfz=307) 8.6 GM/DL 11.2-15.7 HEMATOCRIT (BEAKER) (test ksta=052) 28.5 % 34.1-44.9 MEAN CORPUSCULAR VOLUME (BEAKER) (test kjax=581) 77.2 fL 79.4-94.8 MEAN CORPUSCULAR HEMOGLOBIN (BEAKER) (test 23.3 pg 25.6-32.2 cbcm=559) MEAN CORPUSCULAR HEMOGLOBIN CONC (BEAKER) (test 30.2 GM/DL 32.2-35.5 kxxq=661) RED CELL DISTRIBUTION WIDTH (BEAKER) (test 13.7 % 11.7-14.4 fiwk=118) PLATELET COUNT (BEAKER) (test eabd=874) 249 K/CU MM 150-450 MEAN PLATELET VOLUME (BEAKER) (test qpln=508) 8.8 fL 9.4-12.3 NUCLEATED RED BLOOD CELLS (BEAKER) (test 0 /100 WBC 0-0 xkgr=733) NEUTROPHILS RELATIVE PERCENT (BEAKER) (test 64 % rnwc=656) LYMPHOCYTES RELATIVE PERCENT (BEAKER) (test 21 % eyau=161) MONOCYTES RELATIVE PERCENT (BEAKER) (test 12 % ehft=131) EOSINOPHILS RELATIVE PERCENT (BEAKER) (test 3 % qwei=281) BASOPHILS RELATIVE PERCENT (BEAKER) (test 0 % hjtg=009) NEUTROPHILS ABSOLUTE COUNT (BEAKER) (test 4.23 K/ L 1.56-6.13 wfjt=360) LYMPHOCYTES ABSOLUTE COUNT (BEAKER) (test 1.39 K/ L 1.18-3.74 mudk=866) MONOCYTES ABSOLUTE COUNT (BEAKER) (test 0.80 K/ L 0.24-0.36 fnho=929) EOSINOPHILS ABSOLUTE COUNT (BEAKER) (test 0.20 K/ L 0.04-0.36 gxkf=037) BASOPHILS ABSOLUTE COUNT (BEAKER) (test 0.02 K/ L 0.01-0.08 ibdl=267) IMMATURE GRANULOCYTES-RELATIVE PERCENT (BEAKER) 0 % 0-1 (test dpzz=4386) BASIC METABOLIC [id number] 04:19:00 Test Item Value Reference Range Comments SODIUM (BEAKER) (test 139 meq/L 136-145 idtr=829) POTASSIUM (BEAKER) (test 3.1 meq/L 3.5-5.1 hojc=079) CHLORIDE (BEAKER) (test 103 meq/L 98-107 dqec=398) CO2 (BEAKER) (test 29 meq/L 22-29 glpl=192) BLOOD UREA NITROGEN 12 mg/dL 7-21 (BEAKER) (test usyt=074) CREATININE (BEAKER) (test 0.65 mg/dL 0.57-1.25 wzyy=761) GLUCOSE RANDOM (BEAKER) 91 mg/dL 70-105 (test bqhj=167) CALCIUM (BEAKER) (test 8.1 mg/dL 8.4-10.2 crec=226) EGFR (BEAKER) (test 87 mL/min/1.73 sq m ESTIMATED GFR IS NOT xert=4951) ACCURATE CREATININE CLEARANCE IN PREDICTING GLOMERULAR FILTRATION RATE. ESTIMATED GFR IS NOT APPLICABLE FOR DIALYSIS PATIENTS. EEG MONITORING WITH VIDEO RECORDING EACH 24 [id number] 16:19:00Addendum BeginsAddendum:Start time: 0645Stop time: 1613 There [...] 12/16/2017 to DATE OF REPORT 12/16/17 ACC: [id number] EE-[id number] Start time: 22: 43 Stop time: 06:45 ICD-10: G93.40 CPT Code: 22810 HISTORY: 82 yo F with history of [...] Fellow Gely Cleary MD, MS Epilepsy/Neurophysiology Attending [facility] METABOLIC [id number] 04:38:00 Test Item Value Reference Range Comments SODIUM (BEAKER) (test 142 meq/L 136-145 alul=455) POTASSIUM (BEAKER) (test 3.0 meq/L 3.5-5.1 kzgm=175) CHLORIDE (BEAKER) (test 104 meq/L 98-107 yzaj=299) CO2 (BEAKER) (test 31 meq/L 22-29 suai=719) BLOOD UREA NITROGEN 13 mg/dL 7-21 (BEAKER) (test xipd=374) CREATININE (BEAKER) (test 0.64 mg/dL 0.57-1.25 tclr=469) GLUCOSE RANDOM (BEAKER) 122 mg/dL 70-105 (test kyxa=954) CALCIUM (BEAKER) (test 8.1 mg/dL 8.4-10.2 iowv=960) EGFR (BEAKER) (test 89 mL/min/1.73 sq m ESTIMATED GFR IS NOT hznw=9140) ACCURATE CREATININE CLEARANCE IN PREDICTING GLOMERULAR FILTRATION RATE. ESTIMATED GFR IS NOT APPLICABLE FOR DIALYSIS PATIENTS. CBC W/PLT COUNT & AUTO [id number] 04:03:00 Test Item Value Reference Range Comments WHITE BLOOD CELL COUNT (BEAKER) (test lcae=086) 8.6 K/ L 3.5-10.5 RED BLOOD CELL COUNT (BEAKER) (test mvgi=531) 3.94 M/ L 3.93-5.22 HEMOGLOBIN (BEAKER) (test oryd=051) 9.1 GM/DL 11.2-15.7 HEMATOCRIT (BEAKER) (test jwtr=726) 30.3 % 34.1-44.9 MEAN CORPUSCULAR VOLUME (BEAKER) (test dpyw=933) 76.9 fL 79.4-94.8 MEAN CORPUSCULAR HEMOGLOBIN (BEAKER) (test 23.1 pg 25.6-32.2 ozxt=010) MEAN CORPUSCULAR HEMOGLOBIN CONC (BEAKER) (test 30.0 GM/DL 32.2-35.5 wnfu=421) RED CELL DISTRIBUTION WIDTH (BEAKER) (test 13.4 % 11.7-14.4 joas=943) PLATELET COUNT (BEAKER) (test zujm=419) 287 K/CU MM 150-450 MEAN PLATELET VOLUME (BEAKER) (test mvvv=171) 8.7 fL 9.4-12.3 NUCLEATED RED BLOOD CELLS (BEAKER) (test 0 /100 WBC 0-0 yefi=451) NEUTROPHILS RELATIVE PERCENT (BEAKER) (test 74 % ymao=672) LYMPHOCYTES RELATIVE PERCENT (BEAKER) (test 16 % dtcd=088) MONOCYTES RELATIVE PERCENT (BEAKER) (test 9 % tknq=540) EOSINOPHILS RELATIVE PERCENT (BEAKER) (test 1 % novh=032) BASOPHILS RELATIVE PERCENT (BEAKER) (test 0 % npbr=233) NEUTROPHILS ABSOLUTE COUNT (BEAKER) (test 6.35 K/ L 1.56-6.13 ygls=078) LYMPHOCYTES ABSOLUTE COUNT (BEAKER) (test 1.35 K/ L 1.18-3.74 cvie=721) MONOCYTES ABSOLUTE COUNT (BEAKER) (test 0.80 K/ L 0.24-0.36 ebht=351) EOSINOPHILS ABSOLUTE COUNT (BEAKER) (test 0.08 K/ L 0.04-0.36 yutv=102) BASOPHILS ABSOLUTE COUNT (BEAKER) (test 0.03 K/ L 0.01-0.08 jeyz=553) IMMATURE GRANULOCYTES-RELATIVE PERCENT (BEAKER) 0 % 0-1 (test jscu=8276) EEG AWAKE AND [id number] 23:06:00For STAT EEG- after 5 PM weekdays, weekends and holidays, page the on-call refinery operator vapor recovery unit Reason for exam:->seizure, AMSDATE OF TEST: 1/21/18DATE OF REPORT 12/16/17ACC: [id number]: [id number] time : 22:22Stop time: 22:43ICD-10: G93.40CPT Code: 95498 HISTORY: 82 yo F with history of [...] Fellow Nabila Sanchez M.D., FACNSProfessor of NeurologyDirector, [facility] EpilepsyAdena Pike Medical CentererSelect [facility] [place] [facility] Neurophysiology Lab Electronically signed by: NABILA Foreman 12/16/2017 11:06 PMRAD, CHEST, 1 VIEW, NON [id number] 21:41: 00Reason for exam:->concern for PNAShould this [...] MDReport Verified Date/Time: 12/16/2017 21:41:51 Reading Location: [address] Reading Room [id number] 19:57:00 Test Item Value Reference Range Comments FERRITIN (BEAKER) (test vtzg=054) 36 ng/mL 5-275 VITAMIN D, [id number] 19:57:00 Test Item Value Reference Range Comments VITAMIN D 25-OH (BEAKER) (test douz=8948) 8.2 ng/mL 6.6-49.9 Effective 09/05/2017: Reference Range ChangeNew: 6.6-49.9 ng/mL Previous: 13.0 -47.8 ng/mLRecommended Vitamin D Target Range: 30.0-40.0 ng/mLTSH/FREE T4 IF [id number] 19:57:00 Test Item Value Reference Range Comments THYROID STIMULATING HORMONE (BEAKER) (test 3.15 uIU/mL 0.35-4.94 crpr=146) VITAMIN B12 AND [id number] 19:57:00 Test Item Value Reference Range Comments VITAMIN B12 (BEAKER) (test yppy=563) 376 pg/mL 213-816 FOLATE (BEAKER) (test fuam=051) 15.8 ng/mL >=7.0 URINALYSIS W/ [id number] 19:28:00 Test Item Value Reference Range Comments COLOR (BEAKER) (test skqq=790) Yellow CLARITY (BEAKER) (test rjve=625) Clear SPECIFIC GRAVITY UA (BEAKER) (test lyvg=241) 1.017 1.001-1.035 PH UA (BEAKER) (test psia=082) 5.5 5.0-8.0 PROTEIN UA (BEAKER) (test cjov=670) 50 mg/dL Negative GLUCOSE UA (BEAKER) (test fnuz=816) Negative Negative KETONES UA (BEAKER) (test bkpq=365) 40 mg/dL Negative BILIRUBIN UA (BEAKER) (test ajtk=586) Negative Negative BLOOD UA (BEAKER) (test bmso=620) Negative Negative NITRITE UA (BEAKER) (test uvdh=379) Negative Negative LEUKOCYTE ESTERASE UA (BEAKER) (test esxk=835) Moderate Negative UROBILINOGEN UA (BEAKER) (test whcl=854) 0.2 mg/dL 0.2-1.0 RBC UA (BEAKER) (test rrep=576) 1 /HPF WBC UA (BEAKER) (test jxln=138) 55 /HPF BACTERIA (BEAKER) (test jvot=038) Occasional MUCUS (BEAKER) (test ajrk=8138) Many HYALINE CASTS (BEAKER) (test bkgp=014) 10 /LPF SOURCE(BEAKER) (test isma=6636) Urine, [place] IRON, TIBC, % SAT. (WITHOUT FERRITIN)2017-12-16 19:21:00 Test Item Value Reference Range Comments IRON (BEAKER) (test bsrd=031) 24 ug/dL 40-160 TOTAL IRON BINDING CAPACITY (BEAKER) (test 309 ug/dL 250-450 mnie=036) IRON % SATURATION (2) (BEAKER) (test clhn=5626) 8 % 20-55 BASIC METABOLIC [id number] 19:20:00 Test Item Value Reference Range Comments SODIUM (BEAKER) (test 141 meq/L 136-145 scmx=176) POTASSIUM (BEAKER) (test 4.0 meq/L 3.5-5.1 Specimen moderately qtyc=800) hemolyzed CHLORIDE (BEAKER) (test 102 meq/L 98-107 xzwx=237) CO2 (BEAKER) (test 30 meq/L 22-29 kanz=393) BLOOD UREA NITROGEN 12 mg/dL 7-21 (BEAKER) (test beqf=306) CREATININE (BEAKER) (test 0.66 mg/dL 0.57-1.25 Specimen moderately rxxl=714) hemolyzed GLUCOSE RANDOM (BEAKER) 102 mg/dL 70-105 (test fijy=185) CALCIUM (BEAKER) (test 8.3 mg/dL 8.4-10.2 rnwo=556) EGFR (BEAKER) (test 86 mL/min/1.73 sq m ESTIMATED GFR IS NOT nraj=1022) ACCURATE CREATININE CLEARANCE IN PREDICTING GLOMERULAR FILTRATION RATE. ESTIMATED GFR IS NOT APPLICABLE FOR DIALYSIS PATIENTS. CBC W/PLT COUNT & AUTO [id number] 19:06:00 Test Item Value Reference Range Comments WHITE BLOOD CELL COUNT (BEAKER) (test rdsl=393) 8.2 K/ L 3.5-10.5 RED BLOOD CELL COUNT (BEAKER) (test dkjf=287) 4.05 M/ L 3.93-5.22 HEMOGLOBIN (BEAKER) (test dnex=700) 9.4 GM/DL 11.2-15.7 HEMATOCRIT (BEAKER) (test hgal=615) 30.9 % 34.1-44.9 MEAN CORPUSCULAR VOLUME (BEAKER) (test gdin=416) 76.3 fL 79.4-94.8 MEAN CORPUSCULAR HEMOGLOBIN (BEAKER) (test 23.2 pg 25.6-32.2 wcxi=792) MEAN CORPUSCULAR HEMOGLOBIN CONC (BEAKER) (test 30.4 GM/DL 32.2-35.5 zcnr=334) RED CELL DISTRIBUTION WIDTH (BEAKER) (test 13.6 % 11.7-14.4 lvnn=521) PLATELET COUNT (BEAKER) (test qkjc=858) 301 K/CU MM 150-450 MEAN PLATELET VOLUME (BEAKER) (test sfvk=080) 8.7 fL 9.4-12.3 NUCLEATED RED BLOOD CELLS (BEAKER) (test 0 /100 WBC 0-0 whfw=130) NEUTROPHILS RELATIVE PERCENT (BEAKER) (test 78 % jqvl=034) LYMPHOCYTES RELATIVE PERCENT (BEAKER) (test 13 % ggsj=559) MONOCYTES RELATIVE PERCENT (BEAKER) (test 9 % jyqq=519) EOSINOPHILS RELATIVE PERCENT (BEAKER) (test 1 % yldg=961) BASOPHILS RELATIVE PERCENT (BEAKER) (test 0 % ktcp=074) NEUTROPHILS ABSOLUTE COUNT (BEAKER) (test 6.35 K/ L 1.56-6.13 mema=474) LYMPHOCYTES ABSOLUTE COUNT (BEAKER) (test 1.06 K/ L 1.18-3.74 bheq=781) MONOCYTES ABSOLUTE COUNT (BEAKER) (test 0.70 K/ L 0.24-0.36 nbrb=628) EOSINOPHILS ABSOLUTE COUNT (BEAKER) (test 0.04 K/ L 0.04-0.36 anms=461) BASOPHILS ABSOLUTE COUNT (BEAKER) (test 0.03 K/ L 0.01-0.08 xjih=539) IMMATURE GRANULOCYTES-RELATIVE PERCENT (BEAKER) 0 % 0-1 (test rbwk=6327)
[2018-04-05 21:52] LABS: Urine Blood NEGATIVE (NEG); Urine Glucose NEGATIVE (NEG); Urine Protein NEGATIVE (NEG); Urine Specific Gravity 1.015 (1.005-1.030)
[2018-04-05 22:08] LABS: Urine Bacteria <20 /HPF (<20); Urine Culture Reflex Order NOT NEEDED; Urine RBC <5 /HPF (NONE SEEN)
--- NOTE | 2018-04-05 23:10 | ER ---
Nurse's Notes [facility] Name: Gloria Armenta Age: 82 yrs Sex: Female : 1935 Arrival Date: 04/05/2018 Time: 21:18 Bed 18 Private MD: Diagnosis: Dysuria Presentation: 04/05 21:25 Presenting complaint: Patient states: Burning with urination for 2 hours. Transition of aj care: patient was not received from another setting of care. Onset of symptoms was April 05, 2018. Care prior to arrival: None. 21:25 Method Of Arrival: Ambulatory 21:25 Acuity: AURELIO 3 04/06 00:01 Initial Sepsis Screen: Does the patient meet any 2 criteria? No. Patient's initial mb3 sepsis screen is negative. Does the patient have a suspected source of infection? No. Patient's initial sepsis screen is negative. Triage Assessment: 04/05 21:26 General: Appears in no apparent distress. comfortable, Behavior is calm, cooperative, aj appropriate for age. Pain: Complains of pain in meatus. Neuro: Level of Consciousness is awake, alert, obeys commands, Oriented to person, place, time, situation, Appropriate for age. Respiratory: Airway is patent Respiratory effort is even, unlabored, Respiratory pattern is regular, symmetrical. : Reports burning with urination. Derm: Skin is intact, is healthy with good turgor, Skin is pink, warm \T\ dry. normal. Historical: - Allergies: 21:26 Aspirin; aj 21:26 Cefaclor; aj 21:26 Celecoxib; aj 21:26 Cephalexin; aj 21:26 CEPHALOSPORINS; aj 21:26 Chlorpromazine; aj 21:26 chlorpromazine HCl; aj 21:26 esomeprazole mag; aj 21:26 Ketorolac; aj 21:26 ketorolac tromethamine; aj 21:26 Meperidine; aj 21:26 Morphine; aj 21:26 prochlorperazine Edisylate; aj 21:26 Prochlorperazine Maleate; aj 21:26 Rofecoxib; aj 21:26 Sulfa (Sulfonamide Antibiotics); aj 21:26 SUMATRIPTAN; aj 21:26 Sumatriptan Succinate; aj - PMHx: 21:26 Chronic headaches; Chronic pain; Hypertension; aj - Immunization history:: Adult Immunizations up to date. - Social history:: Smoking status: Patient/guardian denies using tobacco. Screenin/12 00:01 Abuse screen: Denies threats or abuse. Nutritional screening: No deficits noted. mb3 Tuberculosis screening: No symptoms or risk factors identified. Fall Risk Fall in past 12 months (25 points). No secondary diagnosis (0 pts). No IV (0 pts). Ambulatory Aid- Crutches/Cane/Walker (15 pts). Gait- Impaired (20 pts.). Mental Status- Oriented to own ability (0 pts). Total Gilbert Fall Scale indicates High Risk Score (45 or more points). Assessment: 04/05 23:03 General: Appears in no apparent distress. comfortable, Behavior is calm, cooperative, mb3 appropriate for age. Neuro: No deficits noted. Cardiovascular: No deficits noted. Respiratory: No deficits noted. GI: No deficits noted. No signs and/or symptoms were reported involving the gastrointestinal system. : No deficits noted. Urine is clear, Reports pain with urination. Vital Signs: 21:26 BP 193 / 97; Pulse 89; Resp 16; Temp 98.2; Pulse Ox 98% on R/A; Weight 58.97 kg; Height aj 5 ft. 9 in. (175.26 cm); 23:03 BP 212 / 117; Pulse 90; Resp 20; Pulse Ox 96% on R/A; mb3 23:57 BP 190 / 97; Pulse 84; Resp 18; Pulse Ox 98% on R/A; mb3 21:26 Body Mass Index 19.20 (58.97 kg, 175.26 cm) ED Course: 21:18 Patient arrived in ED. ds1 21:25 Triage completed. aj 21:26 Arm band placed on left wrist. Patient placed in an exam room. aj 21:31 Brian Alas NP is PHCP. pm1 21:31 Toy Russ MD is Attending Physician. pm1 21:58 Jhonny Toure, NAT is Primary Nurse. mb3 04/06 00:02 Patient has correct armband on for positive identification. mb3 00:02 No provider procedures requiring assistance completed. Patient did not have IV access mb3 during this emergency room visit. Administered Medications: 04/05 23:18 Drug: cloNIDine 0.2 mg Route: PO; mb3 04/06 00:05 Follow up: Response: No adverse reaction; Blood pressure is lowered mb3 Outcome: 04/05 23:09 Discharge ordered by . pm1 04/06 00:03 Discharged to home ambulatory. mb3 Condition: stable Discharge instructions given to patient, Instructed on discharge instructions, follow up and referral plans. medication usage, Demonstrated understanding of instructions, follow-up care, medications, Prescriptions given X 1. 00:05 Patient left the ED. mb3 Signatures: Yvonne Martino, RN RN Shena Rodriguez ds1 Brian Alas, SARAH TANK CLEANER pm1 Jhonny Toure RN RN mb3
--- NOTE | 2018-04-05 23:10 | EDPHYS ---
Physician Documentation [facility] Name: Gloria Armenta Age: 82 yrs Sex: Female : 1935 Arrival Date: 04/05/2018 Time: 21:18 Bed 18 Private MD: ED Physician Toy Russ HPI: 04/05 23:00 This 82 yrs old Female presents to ER via Ambulatory with complaints of pm1 Urinary Problem. 23:00 The patient presents with urinary symptoms, burning with urination. Onset: The pm1 symptoms/episode began/occurred 2 hours prior to arrival. Modifying factors: The symptoms are alleviated by nothing, the symptoms are aggravated by urinating. Associated signs and symptoms: Pertinent negatives: cramping, fever, nausea, vaginal bleeding, vaginal discharge, vomiting. The patient has experienced similar episodes in the past, a few times. Feels like prior urinary tract infections in the past. Historical: - Allergies: 21:26 Aspirin; aj 21:26 Cefaclor; aj 21:26 Celecoxib; aj 21:26 Cephalexin; aj 21:26 CEPHALOSPORINS; aj 21:26 Chlorpromazine; aj 21:26 chlorpromazine HCl; aj 21:26 esomeprazole mag; aj 21:26 Ketorolac; aj 21:26 ketorolac tromethamine; aj 21:26 Meperidine; aj 21:26 Morphine; aj 21:26 prochlorperazine Edisylate; aj 21:26 Prochlorperazine Maleate; aj 21:26 Rofecoxib; aj 21:26 Sulfa (Sulfonamide Antibiotics); aj 21:26 SUMATRIPTAN; aj 21:26 Sumatriptan Succinate; aj - PMHx: 21:26 Chronic headaches; Chronic pain; Hypertension; aj - Immunization history:: Adult Immunizations up to date. - Social history:: Smoking status: Patient/guardian denies using tobacco. ROS: 23:00 Positive for burning with urination. pm1 23:00 Constitutional: Negative for fever, chills, and weight loss, Eyes: Negative for injury, pain, redness, and discharge, ENT: Negative for injury, pain, and discharge, Neck: Negative for injury, pain, and swelling, Cardiovascular: Negative for chest pain, palpitations, and edema, Respiratory: Negative for shortness of breath, cough, wheezing, and pleuritic chest pain. 23:00 Back: Negative for injury and pain, MS/Extremity: Negative for injury and deformity, Skin: Negative for injury, rash, and discoloration, Neuro: Negative for headache, weakness, numbness, tingling, and seizure. 23:00 Abdomen/GI: Positive for abdominal pain, of the suprapubic area. Exam: 23:00 Constitutional: This is a well developed, well nourished patient who is awake, alert, pm1 and in no acute distress. Head/Face: Normocephalic, atraumatic. Chest/axilla: Normal chest wall appearance and motion. Nontender with no deformity. No lesions are appreciated. Cardiovascular: Regular rate and rhythm with a normal S1 and S2. No gallops, murmurs, or rubs. Normal PMI, no JVD. No pulse deficits. Respiratory: Lungs have equal breath sounds bilaterally, clear to auscultation and percussion. No rales, rhonchi or wheezes noted. No increased work of breathing, no retractions or nasal flaring. 23:00 Back: No spinal tenderness. No costovertebral tenderness. Full range of motion. Skin: Warm, dry with normal turgor. Normal color with no rashes, no lesions, and no evidence of cellulitis. MS/ Extremity: Pulses equal, no cyanosis. Neurovascular intact. Full, normal range of motion. 23:00 Abdomen/GI: Inspection: abdomen appears normal, Bowel sounds: normal, Palpation: abdomen is soft and non-tender, in the suprapubic area, right upper quadrant, left upper quadrant, right lower quadrant and left lower quadrant, mass, is not appreciated, rebound tenderness, is not appreciated. 23:00 Neuro: Orientation: is normal, Motor: is normal, moves all fours, Gait: is steady, at a normal pace, without difficulty. Vital Signs: 21:26 BP 193 / 97; Pulse 89; Resp 16; Temp 98.2; Pulse Ox 98% on R/A; Weight 58.97 kg; Height aj 5 ft. 9 in. (175.26 cm); 23:03 BP 212 / 117; Pulse 90; Resp 20; Pulse Ox 96% on R/A; mb3 23:57 BP 190 / 97; Pulse 84; Resp 18; Pulse Ox 98% on R/A; mb3 21:26 Body Mass Index 19.20 (58.97 kg, 175.26 cm) mariola MDM: 21:42 Patient medically screened. pm1 23:08 Data reviewed: vital signs. Data interpreted: Pulse oximetry: on room air is 96 %. pm1 Interpretation: normal. Counseling: I had a detailed discussion with the patient and/or guardian regarding: the historical points, exam findings, and any diagnostic results supporting the discharge/admit diagnosis, lab results, the need for outpatient follow up, to return to the emergency department if symptoms worsen or persist or if there are any questions or concerns that arise at home. 04/05 21:44 Order name: Urine Dipstick--Ancillary (enter results); Complete Time: 22:17 fc 04/05 21:45 Order name: Urine Microscopic Only; Complete Time: 22:17 Administered Medications: 23:18 Drug: cloNIDine 0.2 mg Route: PO; mb3 04/06 00:05 Follow up: Response: No adverse reaction; Blood pressure is lowered mb3 Disposition: 04/05/18 23:09 Discharged to Home. Impression: Dysuria. - Condition is Stable. - Discharge Instructions: Dysuria. - Prescriptions for Cipro 500 mg Oral Tablet - take 1 tablet by ORAL route every 12 hours for 7 days; 14 tablet. - Medication Reconciliation Form, Thank You Letter, Antibiotic Education form. - Follow up: Emergency Department; When: As needed; Reason: Worsening of condition. Follow up: Private Physician; When: 2 - 3 days; Reason: Recheck today's complaints, Continuance of care, Re-evaluation by your physician. - Problem is new. - Symptoms have improved. Addendum: 04/26/2018 07:00 Co-signature as Attending Physician, Toy Russ MD I agree with the assessment and t w4 plan of care. Signatures: Dispatcher [employer] Yvonne Mayer RN RN Brian Walsh, STRIP CUTTER STRIP CUTTER pm1 Toy Russ MD MD tw4 Jhonny oTure RN RN mb3 Corrections: (The following items were deleted from the chart) 04/06 00:05 04/05 23:09 04/05/2018 23:09 Discharged to Home. Impression: Dysuria. Condition is mb3 Stable. Forms are Medication Reconciliation Form, Thank You Letter, Antibiotic Education, Prescription Opioid Use. Follow up: Emergency Department; When: As needed; Reason: Worsening of condition. Follow up: Private Physician; When: 2 - 3 days; Reason: Recheck today's complaints, Continuance of care, Re-evaluation by your physician. Problem is new. Symptoms have improved. pm1
[2018-04-05] MEDS ORDERED: cloNIDine HCl 0.1 MG TAB ONE (23:17)
[2018-04-06 00:30] VITALS: TEMP 98.2
[2018-04-06 00:33] VITALS: BP 190/97; O2SAT 98
== END 2018-04-06 00:05 | disposition home or self-care (01) ==
LOC: ER 21:12
DX: R30.0 Dysuria (principal); I10 Essential (primary) hypertension; Z88.1 Allergy status to other antibiotic agents; Z88.2 Allergy status to sulfonamides; Z88.3 Allergy status to other anti-infective agents; Z88.5 Allergy status to narcotic agent; Z88.6 Allergy status to analgesic agent; Z88.8 Allergy status to other drugs, medicaments and biological substances
CPT/HCPCS: 81003; 81015; 99283

== ENCOUNTER 2018-04-17 20:29 | Emergency (ER) | payer OTHER, SELFPAY ==
--- OUTSIDE RECORDS SUMMARY | 2018-04-17 20:32 | XMS REPORT ---
:1935 Author Organization [facility] Address [address] [place] [address] [address] [place] [address] Care Team Providers Name Role Phone NICHOLE PEREZ Unavailable Unavailable Problems This patient has no known problems. Allergies, Adverse Reactions, Alerts This patient has no known allergies or adverse reactions. Medications This patient has no known medications. Results Test Description Test Time Test Comments Text Results Atomic Results Result Comments BLOOD CULTURE 2017-12-22 05:01:00 Test Item Value Reference Range Comments CULTURE (BEAKER) (test yvse=5772) No growth in 5 days [id number] 11:31:00 Test Item Value Reference Range Comments MAGNESIUM (BEAKER) (test 2.2 mg/dL 1.6-2.6 Specimen slightly hemolyzed dffj=983) BASIC METABOLIC [id number] 11:31:00 Test Item Value Reference Range Comments SODIUM (BEAKER) (test 139 meq/L 136-145 beoh=640) POTASSIUM (BEAKER) (test 4.0 meq/L 3.5-5.1 Specimen slightly jwey=451) hemolyzed CHLORIDE (BEAKER) (test 104 meq/L 98-107 oify=308) CO2 (BEAKER) (test 27 meq/L 22-29 mowg=400) BLOOD UREA NITROGEN 7 mg/dL 7-21 (BEAKER) (test sgrl=899) CREATININE (BEAKER) (test 0.60 mg/dL 0.57-1.25 Specimen slightly rqah=821) hemolyzed GLUCOSE RANDOM (BEAKER) 113 mg/dL 70-105 (test xeik=995) CALCIUM (BEAKER) (test 8.3 mg/dL 8.4-10.2 ksgi=327) EGFR (BEAKER) (test 95 mL/min/1.73 sq m ESTIMATED GFR IS NOT twub=6409) ACCURATE CREATININE CLEARANCE IN PREDICTING GLOMERULAR FILTRATION RATE. ESTIMATED GFR IS NOT APPLICABLE FOR DIALYSIS PATIENTS. URINE [id number] 09:10:00 Test Item Value Reference Range Comments CULTURE (BEAKER) (test fchx=2224) Amikacin (test code=1) Aztreonam (test code=32) Cefepime (test code=51) Cefoxitin (test code=68) Ceftazidime (test code=27) Ceftriaxone (test code=52) Ertapenem (test code=38) Gentamicin (test code=18) Levofloxacin (test code=22) Meropenem (test code=34) Nitrofurantoin (test code=23) Piperacillin + Tazobactam (test code=29) Tetracycline (test code=2) Tobramycin (test code=25) Trimethoprim + Sulfamethoxazole (test code=47) CULTURE (BEAKER) (test eomb=2400) >100,000 col/mL Citrobacter braakii CBC W/PLT COUNT & AUTO [id number] 07:05:00 Test Item Value Reference Range Comments WHITE BLOOD CELL COUNT (BEAKER) (test mqqg=820) 7.5 K/ L 3.5-10.5 RED BLOOD CELL COUNT (BEAKER) (test wmou=767) 4.30 M/ L 3.93-5.22 HEMOGLOBIN (BEAKER) (test htyo=146) 10.1 GM/DL 11.2-15.7 HEMATOCRIT (BEAKER) (test wodu=630) 32.6 % 34.1-44.9 MEAN CORPUSCULAR VOLUME (BEAKER) (test fwda=115) 75.8 fL 79.4-94.8 MEAN CORPUSCULAR HEMOGLOBIN (BEAKER) (test 23.5 pg 25.6-32.2 xcfj=412) MEAN CORPUSCULAR HEMOGLOBIN CONC (BEAKER) (test 31.0 GM/DL 32.2-35.5 ywec=374) RED CELL DISTRIBUTION WIDTH (BEAKER) (test 14.1 % 11.7-14.4 qpkl=406) PLATELET COUNT (BEAKER) (test afiz=853) 289 K/CU MM 150-450 MEAN PLATELET VOLUME (BEAKER) (test gcbq=542) 9.1 fL 9.4-12.3 NUCLEATED RED BLOOD CELLS (BEAKER) (test 0 /100 WBC 0-0 rmqn=160) NEUTROPHILS RELATIVE PERCENT (BEAKER) (test 73 % evyg=294) LYMPHOCYTES RELATIVE PERCENT (BEAKER) (test 15 % eiew=888) MONOCYTES RELATIVE PERCENT (BEAKER) (test 9 % bpsw=388) EOSINOPHILS RELATIVE PERCENT (BEAKER) (test 2 % ckrs=390) BASOPHILS RELATIVE PERCENT (BEAKER) (test 0 % lmiu=662) NEUTROPHILS ABSOLUTE COUNT (BEAKER) (test 5.50 K/ L 1.56-6.13 wtpr=725) LYMPHOCYTES ABSOLUTE COUNT (BEAKER) (test 1.12 K/ L 1.18-3.74 cobr=804) MONOCYTES ABSOLUTE COUNT (BEAKER) (test 0.67 K/ L 0.24-0.36 qmqb=455) EOSINOPHILS ABSOLUTE COUNT (BEAKER) (test 0.16 K/ L 0.04-0.36 qiwm=069) BASOPHILS ABSOLUTE COUNT (BEAKER) (test 0.03 K/ L 0.01-0.08 bncv=149) IMMATURE GRANULOCYTES-RELATIVE PERCENT (BEAKER) 0 % 0-1 (test awnn=0498) [id number] 08:15:00 Test Item Value Reference Range Comments MAGNESIUM (BEAKER) (test xfcb=337) 1.7 mg/dL 1.6-2.6 CBC W/PLT COUNT & AUTO [id number] 04:24:00 Test Item Value Reference Range Comments WHITE BLOOD CELL COUNT (BEAKER) (test mqhz=116) 6.7 K/ L 3.5-10.5 RED BLOOD CELL COUNT (BEAKER) (test iouo=496) 3.69 M/ L 3.93-5.22 HEMOGLOBIN (BEAKER) (test qliu=812) 8.6 GM/DL 11.2-15.7 HEMATOCRIT (BEAKER) (test neyo=203) 28.5 % 34.1-44.9 MEAN CORPUSCULAR VOLUME (BEAKER) (test wssl=498) 77.2 fL 79.4-94.8 MEAN CORPUSCULAR HEMOGLOBIN (BEAKER) (test 23.3 pg 25.6-32.2 grpl=988) MEAN CORPUSCULAR HEMOGLOBIN CONC (BEAKER) (test 30.2 GM/DL 32.2-35.5 zrxv=078) RED CELL DISTRIBUTION WIDTH (BEAKER) (test 13.7 % 11.7-14.4 ured=488) PLATELET COUNT (BEAKER) (test zsiw=089) 249 K/CU MM 150-450 MEAN PLATELET VOLUME (BEAKER) (test uzbe=422) 8.8 fL 9.4-12.3 NUCLEATED RED BLOOD CELLS (BEAKER) (test 0 /100 WBC 0-0 fiuo=408) NEUTROPHILS RELATIVE PERCENT (BEAKER) (test 64 % hqil=435) LYMPHOCYTES RELATIVE PERCENT (BEAKER) (test 21 % lhaa=286) MONOCYTES RELATIVE PERCENT (BEAKER) (test 12 % ghch=252) EOSINOPHILS RELATIVE PERCENT (BEAKER) (test 3 % pizs=448) BASOPHILS RELATIVE PERCENT (BEAKER) (test 0 % agrt=610) NEUTROPHILS ABSOLUTE COUNT (BEAKER) (test 4.23 K/ L 1.56-6.13 dxkv=722) LYMPHOCYTES ABSOLUTE COUNT (BEAKER) (test 1.39 K/ L 1.18-3.74 nzyu=557) MONOCYTES ABSOLUTE COUNT (BEAKER) (test 0.80 K/ L 0.24-0.36 lqrs=880) EOSINOPHILS ABSOLUTE COUNT (BEAKER) (test 0.20 K/ L 0.04-0.36 ephp=481) BASOPHILS ABSOLUTE COUNT (BEAKER) (test 0.02 K/ L 0.01-0.08 dhzr=520) IMMATURE GRANULOCYTES-RELATIVE PERCENT (BEAKER) 0 % 0-1 (test dgor=4043) BASIC METABOLIC [id number] 04:19:00 Test Item Value Reference Range Comments SODIUM (BEAKER) (test 139 meq/L 136-145 zhif=512) POTASSIUM (BEAKER) (test 3.1 meq/L 3.5-5.1 fvyy=648) CHLORIDE (BEAKER) (test 103 meq/L 98-107 wrfe=250) CO2 (BEAKER) (test 29 meq/L 22-29 wprw=354) BLOOD UREA NITROGEN 12 mg/dL 7-21 (BEAKER) (test hozs=699) CREATININE (BEAKER) (test 0.65 mg/dL 0.57-1.25 lfwj=576) GLUCOSE RANDOM (BEAKER) 91 mg/dL 70-105 (test eteg=080) CALCIUM (BEAKER) (test 8.1 mg/dL 8.4-10.2 mqre=443) EGFR (BEAKER) (test 87 mL/min/1.73 sq m ESTIMATED GFR IS NOT nteh=2581) ACCURATE CREATININE CLEARANCE IN PREDICTING GLOMERULAR FILTRATION RATE. ESTIMATED GFR IS NOT APPLICABLE FOR DIALYSIS PATIENTS. EEG MONITORING WITH VIDEO RECORDING EACH 24 [id number] 16:19:00Addendum BeginsAddendum:Start time: 0645Stop time: 1613 There [...] 12/16/2017 to DATE OF REPORT 12/16/17 ACC: [id number] Start time: 22: 43 Stop time: 06:45 ICD-10: G93.40 CPT Code: 24476 HISTORY: 82 yo F with history of [...] MD, MS Epilepsy/Neurophysiology Attending [facility] METABOLIC [id number] 04:38:00 Test Item Value Reference Range Comments SODIUM (BEAKER) (test 142 meq/L 136-145 btsm=769) POTASSIUM (BEAKER) (test 3.0 meq/L 3.5-5.1 jast=316) CHLORIDE (BEAKER) (test 104 meq/L 98-107 hwpl=255) CO2 (BEAKER) (test 31 meq/L 22-29 wkiz=630) BLOOD UREA NITROGEN 13 mg/dL 7-21 (BEAKER) (test xdcg=905) CREATININE (BEAKER) (test 0.64 mg/dL 0.57-1.25 uhvl=018) GLUCOSE RANDOM (BEAKER) 122 mg/dL 70-105 (test hdnc=822) CALCIUM (BEAKER) (test 8.1 mg/dL 8.4-10.2 jrkb=744) EGFR (BEAKER) (test 89 mL/min/1.73 sq m ESTIMATED GFR IS NOT zhzb=2826) ACCURATE CREATININE CLEARANCE IN PREDICTING GLOMERULAR FILTRATION RATE. ESTIMATED GFR IS NOT APPLICABLE FOR DIALYSIS PATIENTS. CBC W/PLT COUNT & AUTO [id number] 04:03:00 Test Item Value Reference Range Comments WHITE BLOOD CELL COUNT (BEAKER) (test spsw=597) 8.6 K/ L 3.5-10.5 RED BLOOD CELL COUNT (BEAKER) (test yica=060) 3.94 M/ L 3.93-5.22 HEMOGLOBIN (BEAKER) (test tmnu=110) 9.1 GM/DL 11.2-15.7 HEMATOCRIT (BEAKER) (test dfxz=105) 30.3 % 34.1-44.9 MEAN CORPUSCULAR VOLUME (BEAKER) (test lwqg=052) 76.9 fL 79.4-94.8 MEAN CORPUSCULAR HEMOGLOBIN (BEAKER) (test 23.1 pg 25.6-32.2 nlnq=679) MEAN CORPUSCULAR HEMOGLOBIN CONC (BEAKER) (test 30.0 GM/DL 32.2-35.5 qvem=282) RED CELL DISTRIBUTION WIDTH (BEAKER) (test 13.4 % 11.7-14.4 bfwv=215) PLATELET COUNT (BEAKER) (test jtpb=513) 287 K/CU MM 150-450 MEAN PLATELET VOLUME (BEAKER) (test reee=029) 8.7 fL 9.4-12.3 NUCLEATED RED BLOOD CELLS (BEAKER) (test 0 /100 WBC 0-0 rvye=007) NEUTROPHILS RELATIVE PERCENT (BEAKER) (test 74 % bqfa=488) LYMPHOCYTES RELATIVE PERCENT (BEAKER) (test 16 % pkym=010) MONOCYTES RELATIVE PERCENT (BEAKER) (test 9 % fdep=535) EOSINOPHILS RELATIVE PERCENT (BEAKER) (test 1 % fyac=175) BASOPHILS RELATIVE PERCENT (BEAKER) (test 0 % myex=473) NEUTROPHILS ABSOLUTE COUNT (BEAKER) (test 6.35 K/ L 1.56-6.13 yeyh=278) LYMPHOCYTES ABSOLUTE COUNT (BEAKER) (test 1.35 K/ L 1.18-3.74 cuej=014) MONOCYTES ABSOLUTE COUNT (BEAKER) (test 0.80 K/ L 0.24-0.36 ecvo=332) EOSINOPHILS ABSOLUTE COUNT (BEAKER) (test 0.08 K/ L 0.04-0.36 xycb=015) BASOPHILS ABSOLUTE COUNT (BEAKER) (test 0.03 K/ L 0.01-0.08 skvv=563) IMMATURE GRANULOCYTES-RELATIVE PERCENT (BEAKER) 0 % 0-1 (test ewlx=8302) EEG AWAKE AND [id number] 23:06:00For STAT EEG- after 5 PM weekdays, weekends and holidays, page the on-call ferry terminal agent Reason for exam:->seizure, AMSDATE OF TEST: 1/21/18DATE OF REPORT 12/16/17ACC: [id number]: [id number] time : 22:22Stop time: 22:43ICD-10: G93.40CPT Code: 96284 HISTORY: 82 yo F with history of [...] FACNSProfessor of NeurologyDirector, [facility]ilepsyFirelands [facility] Neuro[facility] Lab Electronically signed by: NABILA Foreman 12/16/2017 11:06 PMRAD, CHEST, 1 VIEW, NON [id number] 21:41: 00Reason for exam:->concern for PNAShould this [...] MDReport Verified Date/Time: 12/16/2017 21:41:51 Reading Location: [address] Reading Room [id number] 19:57:00 Test Item Value Reference Range Comments FERRITIN (BEAKER) (test hxmk=037) 36 ng/mL 5-275 VITAMIN D, [id number] 19:57:00 Test Item Value Reference Range Comments VITAMIN D 25-OH (BEAKER) (test cccz=1866) 8.2 ng/mL 6.6-49.9 Effective 09/05/2017: Reference Range ChangeNew: 6.6-49.9 ng/mL Previous: 13.0 -47.8 ng/mLRecommended Vitamin D Target Range: 30.0-40.0 ng/mLTSH/FREE T4 IF [id number] 19:57:00 Test Item Value Reference Range Comments THYROID STIMULATING HORMONE (BEAKER) (test 3.15 uIU/mL 0.35-4.94 xhnf=979) VITAMIN B12 AND [id number] 19:57:00 Test Item Value Reference Range Comments VITAMIN B12 (BEAKER) (test jldx=701) 376 pg/mL 213-816 FOLATE (BEAKER) (test qkkm=317) 15.8 ng/mL >=7.0 URINALYSIS W/ [id number] 19:28:00 Test Item Value Reference Range Comments COLOR (BEAKER) (test xrgf=395) Yellow CLARITY (BEAKER) (test dzkv=446) Clear SPECIFIC GRAVITY UA (BEAKER) (test mlej=127) 1.017 1.001-1.035 PH UA (BEAKER) (test knce=515) 5.5 5.0-8.0 PROTEIN UA (BEAKER) (test zkmd=030) 50 mg/dL Negative GLUCOSE UA (BEAKER) (test kyzp=717) Negative Negative KETONES UA (BEAKER) (test qiwr=597) 40 mg/dL Negative BILIRUBIN UA (BEAKER) (test cvyv=529) Negative Negative BLOOD UA (BEAKER) (test hnjm=112) Negative Negative NITRITE UA (BEAKER) (test sypq=158) Negative Negative LEUKOCYTE ESTERASE UA (BEAKER) (test myhc=813) Moderate Negative UROBILINOGEN UA (BEAKER) (test xkmd=011) 0.2 mg/dL 0.2-1.0 RBC UA (BEAKER) (test eeft=558) 1 /HPF WBC UA (BEAKER) (test vhrz=947) 55 /HPF BACTERIA (BEAKER) (test cgqu=137) Occasional MUCUS (BEAKER) (test zcsa=0770) Many HYALINE CASTS (BEAKER) (test pxgi=425) 10 /LPF SOURCE(BEAKER) (test jhau=2554) Urine, [place] IRON, TIBC, % SAT. (WITHOUT FERRITIN)2017-12-16 19:21:00 Test Item Value Reference Range Comments IRON (BEAKER) (test xfql=400) 24 ug/dL 40-160 TOTAL IRON BINDING CAPACITY (BEAKER) (test 309 ug/dL 250-450 ykez=927) IRON % SATURATION (2) (BEAKER) (test dass=3670) 8 % 20-55 BASIC METABOLIC [id number] 19:20:00 Test Item Value Reference Range Comments SODIUM (BEAKER) (test 141 meq/L 136-145 zjcd=167) POTASSIUM (BEAKER) (test 4.0 meq/L 3.5-5.1 Specimen moderately nvvl=927) hemolyzed CHLORIDE (BEAKER) (test 102 meq/L 98-107 kyfx=544) CO2 (BEAKER) (test 30 meq/L 22-29 lmtu=276) BLOOD UREA NITROGEN 12 mg/dL 7-21 (BEAKER) (test tlkt=561) CREATININE (BEAKER) (test 0.66 mg/dL 0.57-1.25 Specimen moderately rdlc=769) hemolyzed GLUCOSE RANDOM (BEAKER) 102 mg/dL 70-105 (test qcya=943) CALCIUM (BEAKER) (test 8.3 mg/dL 8.4-10.2 aaji=329) EGFR (BEAKER) (test 86 mL/min/1.73 sq m ESTIMATED GFR IS NOT gkjb=2267) ACCURATE CREATININE CLEARANCE IN PREDICTING GLOMERULAR FILTRATION RATE. ESTIMATED GFR IS NOT APPLICABLE FOR DIALYSIS PATIENTS. CBC W/PLT COUNT & AUTO [id number] 19:06:00 Test Item Value Reference Range Comments WHITE BLOOD CELL COUNT (BEAKER) (test kgbg=492) 8.2 K/ L 3.5-10.5 RED BLOOD CELL COUNT (BEAKER) (test swuo=842) 4.05 M/ L 3.93-5.22 HEMOGLOBIN (BEAKER) (test cxza=405) 9.4 GM/DL 11.2-15.7 HEMATOCRIT (BEAKER) (test orxn=853) 30.9 % 34.1-44.9 MEAN CORPUSCULAR VOLUME (BEAKER) (test hrst=146) 76.3 fL 79.4-94.8 MEAN CORPUSCULAR HEMOGLOBIN (BEAKER) (test 23.2 pg 25.6-32.2 gfpk=342) MEAN CORPUSCULAR HEMOGLOBIN CONC (BEAKER) (test 30.4 GM/DL 32.2-35.5 tknt=642) RED CELL DISTRIBUTION WIDTH (BEAKER) (test 13.6 % 11.7-14.4 pxwu=628) PLATELET COUNT (BEAKER) (test ntld=878) 301 K/CU MM 150-450 MEAN PLATELET VOLUME (BEAKER) (test crdi=408) 8.7 fL 9.4-12.3 NUCLEATED RED BLOOD CELLS (BEAKER) (test 0 /100 WBC 0-0 wauz=480) NEUTROPHILS RELATIVE PERCENT (BEAKER) (test 78 % snsp=581) LYMPHOCYTES RELATIVE PERCENT (BEAKER) (test 13 % rysb=200) MONOCYTES RELATIVE PERCENT (BEAKER) (test 9 % gyby=079) EOSINOPHILS RELATIVE PERCENT (BEAKER) (test 1 % emzj=726) BASOPHILS RELATIVE PERCENT (BEAKER) (test 0 % aekt=396) NEUTROPHILS ABSOLUTE COUNT (BEAKER) (test 6.35 K/ L 1.56-6.13 jare=795) LYMPHOCYTES ABSOLUTE COUNT (BEAKER) (test 1.06 K/ L 1.18-3.74 ydbl=799) MONOCYTES ABSOLUTE COUNT (BEAKER) (test 0.70 K/ L 0.24-0.36 diuh=070) EOSINOPHILS ABSOLUTE COUNT (BEAKER) (test 0.04 K/ L 0.04-0.36 pcjz=321) BASOPHILS ABSOLUTE COUNT (BEAKER) (test 0.03 K/ L 0.01-0.08 kopv=908) IMMATURE GRANULOCYTES-RELATIVE PERCENT (BEAKER) 0 % 0-1 (test qbsq=8896)
--- OUTSIDE RECORDS SUMMARY | 2018-04-17 20:32 | XMS REPORT | Clinical Summary ---
:1935 Author Organization [facility] Address [address] [place] [address] Phone Care Team Providers Name Role Phone [...] type;Hypothyroidism, unspecified type;Acute cystitis without hematuria after 04/16/2017 Social History Tobacco Use Types Packs/Day Years Used Date Never Smoker Smokeless Tobacco: Never Used Sex Assigned at Date Recorded Not on file Last Filed Vital Signs Vital Sign Reading Time Taken Blood Pressure 157/77 12/20/2017 11:34 AM [employer] DEVICE SCIENTIST Pulse 76 12/20/2017 11:34 AM MEMS DEVICE SCIENTIST Temperature 36.5 C (97.7 F) 12/20/2017 11:34 AM MEMS DEVICE SCIENTIST Respiratory Rate 18 12/20/2017 11:34 AM MEMS DEVICE SCIENTIST Oxygen Saturation 98% 12/20/2017 11:34 AM MEMS DEVICE SCIENTIST Inhaled Oxygen Concentration - - Weight 54 kg (119 lb) 12/20/2017 5:00 AM MEMS DEVICE SCIENTIST Height 157.5 cm (5' 2") 12/16/2017 5:25 PM MEMS DEVICE SCIENTIST Body Mass Index 21.77 12/20/2017 5:00 AM MEMS DEVICE SCIENTIST Plan of Treatment Not on file Results RHYTHM STRIP - SCAN (12/21/2017 2:41 PM)Magnesium (12/19/2017 7:31 AM)Only the most recent of2 resultswithin the time period is included. Component Value Ref Range Magnesium 2.2Comment: Specimen slightly hemolyzed 1.6 - 2.6 mg/dL Specimen Performing Laboratory Blood - Line, Venous [facility] [address] [address] Basic Metabolic Panel (12/19/2017 7:31 AM)Only the [...] Specimen Performing Laboratory Blood - Line, Venous [address] [address] CBC with platelet count + automated diff [...] Specimen Performing Laboratory Blood - Line, Venous [address] [address] CBC with platelet count + automated diff (12/19/2017 6:58 AM)Only the most recent of4 resultswithin the time period is included. Specimen Performing Laboratory Blood Narrative The following orders were created for panel order CBC with platelet count + automated diff. Procedure Abnormality Status --------- ------ CBC with platelet count ...[[id number]]AbnormalFinal result Please view results for these tests [...] to 12/17/2017 DATE OF REPORT 12/16/17 ACC: [id number] Start time: 22:43 Stop time: 06:45 ICD-10: G93.40 CPT Code: 31870 HISTORY: 82 yo F with history of chronic pain, chronic Lozano, osteoporosis, HTN, who was transferred from [facility] for AMS and seizures. UDS + [...] External Ris In - 12/17/2017 4:19 PM MEMS DEVICE SCIENTIST Addendum Begins Addendum: Start time: 0645 Stop [...] to 12/17/2017 DATE OF REPORT 12/16/17 ACC: [id number] Start time: 22:43 Stop time: 06:45 ICD-10: G93.40 CPT Code: 57937 HISTORY: 82 yo F with history of [...] TEST: 12/16/17 DATE OF REPORT 12/16/17 ACC: [id number] Start time: 22:22 Stop time: 22:43 ICD-10: G93.40 CPT Code: 69305 HISTORY: 82 yo F with history of [...] Galeas MD Epilepsy Fellow Nabila Sanchez M.D., [facility] Professor of Neurology Director, [facility] Epilepsy [place], [facility] Neurophysiology Lab Procedure Note Interface, External Ris In - 12/16/2017 11:06 PM MEMS DEVICE SCIENTIST DATE OF TEST: 12/16/17 DATE OF REPORT 12/16/17 ACC: [id number] Start time: 22:22 Stop time: 22:43 ICD-10: G93.40 CPT Code: 61895 HISTORY: 82 yo F with history of chronic pain, chronic Lozano, osteoporosis, HTN, who was transferred from [facility] for AMS and seizures. UDS + [...] Galeas MD Epilepsy Fellow Nabila Sanchez M.D., [facility] Professor of Neurology Director, [facility] Epilepsy [place], [facility] Neuro[facility] Lab chest 1 view [...] MD Report Verified Date/Time:12/16/2017 21:41:51 Reading Location: [address] Reading Room Procedure Note Interface, External Ris In - 12/16/2017 9:44 PM MEMS DEVICE SCIENTIST FINAL REPORT INDICATION: concern for PNA COMPARISON: None TECHNIQUE: Single frontal view of the chest. FINDINGS: Limited by severe scoliosis and contractures. Lungs and pleura: Clear lungs. No effusion. Heart and mediastinum: Normal heart size. Unremarkable mediastinal contours. Osseous structures: No acute abnormality. Other: None. IMPRESSION: No acute intrathoracic abnormality. Signed: JR Lamb Robert MD Report Verified Date/Time: 12/16/2017 21:41:51 Reading Location: [address] Reading Room Urine culture (12/16/2017 8:45 PM) Component Value Ref Range Result Result >100,000 col/mL Citrobacter braakii (A) Specimen Performing Laboratory Urine - Urine, [place] [address] [address] Organism Antibiotic Method Susceptibility Citrobacter braakii Amikacin [...] 15.8 >=7.0 ng/mL Specimen Performing Laboratory Blood [address] [address] TSH/Free T4 If Indicated (12/16/2017 6:50 PM) Component Value Ref Range TSH 3.15 0.35 - 4.94 uIU/mL Specimen Performing Laboratory Blood [address] [address] Iron, TIBC, % sat. (without ferritin) (12/16/2017 6:50 PM) Component Value Ref Range Iron 24 (L) 40 - 160 ug/dL TIBC 309 250 - 450 ug/dL Iron % Saturation 8 (L) 20 - 55 % Specimen Performing Laboratory [address] [address] Vitamin D, 25-Hydroxy (12/16/2017 6:50 PM) Component Value Ref Range Vitamin D 25-Hydroxy 8.2 6.6 - 49.9 ng/mL Specimen Performing Laboratory Blood [address] [address] Narrative Effective 09/05/2017: Reference Range Change New: 6.6-49.9 ng/mL Previous: 13.0-47.8 ng/mL Recommended Vitamin D Target Range: 30.0-40.0 ng/mL Blood culture (12/16/2017 6:50 PM) Component Value Ref Range Result No growth in 5 days Specimen Performing Laboratory Blood - Arm, Right [address] [address] Urinalysis w/ Microscopic (12/16/2017 6:50 PM) Component Value Ref Range Color, UA Yellow Clarity, UA Clear Specific [place], UA 1.017 1.001 - 1.035 pH, UA [...] Specimen Performing Laboratory Urine - Urine, [place] [address] [address] Ferritin (12/16/2017 6:50 PM) Component Value Ref Range Ferritin 36 5 - 275 ng/mL Specimen Performing Laboratory Blood [address] [address] after 04/16/2017
--- NOTE | 2018-04-17 21:12 | ER ---
Nurse's Notes [facility] Name: Gloria Armenta Age: 82 yrs Sex: Female : 1935 Arrival Date: 04/17/2018 Time: 20:33 Bed 18 Private MD: Thang Montero Diagnosis: Right knee pain, OA, HTN uncontrolled. Dysuria. Presentation: 04/17 20:40 Presenting complaint: Patient states: Right knee pain, lower back pain, and burning aj with urination. Transition of care: patient was not received from another setting of care. Onset of symptoms was April 17, 2018. Care prior to arrival: None. 20:40 Method Of Arrival: Ambulatory aj 20:40 Acuity: AURELIO 2 aj 21:50 Risk Assessment: Do you want to hurt yourself or someone else? Patient reports no lk1 desire to harm self or others. Initial Sepsis Screen: Does the patient meet any 2 criteria? No. Patient's initial sepsis screen is negative. Does the patient have a suspected source of infection? No. Patient's initial sepsis screen is negative. Triage Assessment: 20:42 General: Appears in no apparent distress. comfortable, Behavior is calm, cooperative, aj appropriate for age. Pain: Complains of pain in low back area and right knee. Neuro: Level of Consciousness is awake, alert, obeys commands, Oriented to person, place, time, situation, Appropriate for age. Respiratory: Airway is patent Respiratory effort is even, unlabored, Respiratory pattern is regular, symmetrical. : Reports burning with urination. Derm: Skin is intact, is healthy with good turgor, Skin is pink, warm \T\ dry. normal. Musculoskeletal: Reports pain in low back area and right knee. Historical: - Allergies: 20:42 Aspirin; aj 20:42 Cefaclor; aj 20:42 Celecoxib; aj 20:42 Cephalexin; aj 20:42 CEPHALOSPORINS; aj 20:42 Chlorpromazine; aj 20:42 chlorpromazine HCl; aj 20:42 esomeprazole mag; aj 20:42 Ketorolac; aj 20:42 ketorolac tromethamine; aj 20:42 Meperidine; aj 20:42 Morphine; aj 20:42 Prochlorperazine Maleate; aj 20:42 prochlorperazine Edisylate; aj 20:42 Rofecoxib; aj 20:42 Sulfa (Sulfonamide Antibiotics); aj 20:42 SUMATRIPTAN; aj 20:42 Sumatriptan Succinate; aj - PMHx: 20:42 Chronic headaches; Chronic pain; Hypertension; aj - Immunization history:: Adult Immunizations up to date. - Social history:: Smoking status: Patient/guardian denies using tobacco. - Ebola Screening: : No symptoms or risks identified at this time. Screenin:00 Abuse screen: Denies threats or abuse. Denies injuries from another. Nutritional lk1 screening: No deficits noted. Tuberculosis screening: No symptoms or risk factors identified. Fall Risk Total Gilbert Fall Scale indicates High Risk Score (45 or more points). Fall prevention measures have been instituted. Side Rails Up X 2 Placed Close to Nursing Station Frequent Obs/Assessments Occuring As available patient and family educated on Fall Prevention Program and Strategies. Assessment: 21:00 General: Appears in no apparent distress. Behavior is calm, cooperative, appropriate lk1 for age. Pain: Complains of pain in right knee Pain currently is 10 out of 10 on a pain scale. Neuro: Level of Consciousness is awake, alert, obeys commands, Oriented to person, place, time, situation. Neuro: Gait is steady. Cardiovascular: Capillary refill is brisk Patient's skin is warm and dry. Pulses are palpable in right dorsalis pedis artery and left dorsalis pedis artery. Respiratory: Airway is patent Respiratory effort is even, unlabored, Respiratory pattern is regular, symmetrical. Musculoskeletal: Swelling absent. Vital Signs: 20:42 BP 220 / 98; Pulse 97; Resp 19; Temp 97.2; Pulse Ox 97% on R/A; Weight 58.97 kg; Height aj 5 ft. 7 in. (170.18 cm); 21:40 BP 207 / 92; Pulse 97; Resp 18; Pulse Ox 98% on R/A; lk1 20:42 Body Mass Index 20.36 (58.97 kg, 170.18 cm) aj ED Course: 20:33 Patient arrived in ED. es 20:33 Thang Montero DO is Private Physician. es 20:41 Triage completed. aj 20:42 Arm band placed on left wrist. Patient placed in an exam room. aj 20:56 Tomas Lara MD is Attending Physician. ps1 20:56 Silvia Galvan, RN is Primary Nurse. lk1 21:08 Thang Montero DO is Referral Physician. ps1 21:48 Patient has correct armband on for positive identification. Bed in low position. Call lk1 light in reach. Side rails up X2. 21:50 No provider procedures requiring assistance completed. Patient did not have IV access lk1 during this emergency room visit. Administered Medications: No medications were administered Outcome: 21:09 Discharge ordered by . ps1 21:50 Discharged to home via wheelchair, with significant other. lk1 21:50 Condition: good 21:50 Discharge instructions given to patient, significant other, Instructed on discharge instructions, follow up and referral plans. medication usage, safety practices, Demonstrated understanding of instructions, follow-up care, medications. 21:50 Patient left the ED. lk1 Signatures: Yvonne Martino, RN RN Erica Bautista Leah, RN RN lk1 Tomas Lara MD MD ps1
--- NOTE | 2018-04-17 21:12 | EDPHYS ---
Physician Documentation [facility] Name: Gloria Armenta Age: 82 yrs Sex: Female : 1935 Arrival Date: 04/17/2018 Time: 20:33 Bed 18 Private MD: Thang Montero ED Physician Tomas Lara HPI: 04/17 21:04 This 82 yrs old Female presents to ER via Ambulatory with complaints of Knee ps1 Pain. 21:04 States that she has a history of knee pain that has been previously evaluated and she ps1 states that she has OA. Her pain started 2 hours ago. No remitting or exacerbating factors. She did not try anything because she did not have any tylenol 3. No effusion or cellulitis. Additionally she states that she has dysuria. No fever. . Historical: - Allergies: 20:42 Aspirin; aj 20:42 Cefaclor; aj 20:42 Celecoxib; aj 20:42 Cephalexin; aj 20:42 CEPHALOSPORINS; aj 20:42 Chlorpromazine; aj 20:42 chlorpromazine HCl; aj 20:42 esomeprazole mag; aj 20:42 Ketorolac; aj 20:42 ketorolac tromethamine; aj 20:42 Meperidine; aj 20:42 Morphine; aj 20:42 Prochlorperazine Maleate; aj 20:42 prochlorperazine Edisylate; aj 20:42 Rofecoxib; aj 20:42 Sulfa (Sulfonamide Antibiotics); aj 20:42 SUMATRIPTAN; aj 20:42 Sumatriptan Succinate; aj - PMHx: 20:42 Chronic headaches; Chronic pain; Hypertension; aj - Immunization history:: Adult Immunizations up to date. - Social history:: Smoking status: Patient/guardian denies using tobacco. - Ebola Screening: : No symptoms or risks identified at this time. ROS: 21:04 Constitutional: Negative for fever, chills, and weight loss, Eyes: Negative for injury, ps1 pain, redness, and discharge, Cardiovascular: Negative for chest pain, palpitations, and edema, Respiratory: Negative for shortness of breath, cough, wheezing, and pleuritic chest pain, Abdomen/GI: Negative for abdominal pain, nausea, vomiting, diarrhea, and constipation, Back: Negative for injury and pain. 21:04 : Positive for dysuria. . 21:04 MS/extremity: Positive for right knee pain. . Exam: 21:04 Constitutional: This is a well developed, well nourished patient who is awake, alert, ps1 and in no acute distress. Head/Face: Normocephalic, atraumatic. Eyes: Pupils equal round and reactive to light, extra-ocular motions intact. Lids and lashes normal. Conjunctiva and sclera are non-icteric and not injected. Chest/axilla: Normal chest wall appearance and motion. Nontender with no deformity. No lesions are appreciated. Cardiovascular: Regular rate and rhythm. No gallops, murmurs, or rubs. Normal PMI, no JVD. No pulse deficits. Respiratory: Lungs have equal breath sounds bilaterally, clear to auscultation and percussion. No rales, rhonchi or wheezes noted. No increased work of breathing, no retractions or nasal flaring. Abdomen/GI: Soft, non-tender, with normal bowel sounds. No distension or tympany. No guarding or rebound. No evidence of tenderness throughout. 21:04 Musculoskeletal/extremity: Extremities: grossly normal except: noted in the right knee: pain, no acute changes, no effusion or cellulitis. Vertical scar from previous surgery. . Vital Signs: 20:42 BP 220 / 98; Pulse 97; Resp 19; Temp 97.2; Pulse Ox 97% on R/A; Weight 58.97 kg; Height aj 5 ft. 7 in. (170.18 cm); 21:40 BP 207 / 92; Pulse 97; Resp 18; Pulse Ox 98% on R/A; lk1 20:42 Body Mass Index 20.36 (58.97 kg, 170.18 cm) MDM: 21:04 Data reviewed: vital signs, nurses notes, lab test result(s), urinalysis, proteinuria. ps1 21:09 Patient medically screened. ps1 Administered Medications: No medications were administered Disposition: 04/17/18 21:09 Discharged to Home. Impression: Right knee pain, OA, HTN uncontrolled. Dysuria. . - Condition is Stable. - Discharge Instructions: Hypertension, Knee Pain. - Medication Reconciliation Form, Thank You Letter, Antibiotic Education, Prescription Opioid Use form. - Follow up: Thang Montero, ; When: As needed; Reason: Recheck today's complaints, Re-evaluation by your physician. Follow up: Emergency Department; When: As needed; Reason: Fever > 102 F, Trouble breathing, Worsening of condition. - Problem is chronic. - Symptoms are unchanged. Signatures: Yvonne Martino, RN RN aj Silvia Galvan RN RN lk1 Tomas Lara MD MD ps1 Corrections: (The following items were deleted from the chart) 21:50 21:09 04/17/2018 21:09 Discharged to Home. Impression: Right knee pain, OA, HTN lk1 uncontrolled. Dysuria. . Condition is Stable. Forms are Medication Reconciliation Form, Thank You Letter, Antibiotic Education, Prescription Opioid Use. Follow up: Thang Montero; When: As needed; Reason: Recheck today's complaints, Re-evaluation by your physician. Follow up: Emergency Department; When: As needed; Reason: Fever > 102 F, Trouble breathing, Worsening of condition. Problem is chronic. Symptoms are unchanged. ps1
[2018-04-17 22:18] VITALS: TEMP 97.2
[2018-04-17 22:19] VITALS: BP 207/92; O2SAT 98
== END 2018-04-17 21:50 | disposition home or self-care (01) ==
LOC: ER 20:29
DX: M17.11 Unilateral primary osteoarthritis, right knee (principal); I10 Essential (primary) hypertension; R30.0 Dysuria; Z88.6 Allergy status to analgesic agent; Z88.1 Allergy status to other antibiotic agents; Z88.2 Allergy status to sulfonamides; Z88.8 Allergy status to other drugs, medicaments and biological substances
CPT/HCPCS: 99281

== ENCOUNTER 2018-04-24 03:41 | Emergency (ER) | payer OTHER, SELFPAY ==
--- OUTSIDE RECORDS SUMMARY | 2018-04-24 03:43 | XMS REPORT ---
:1935 [facility] [address] [place] [address] [address] [place] [address] Care Team Providers Name Role Phone NICHOLE PEREZ Unavailable Unavailable Problems This patient has no known problems. Allergies, Adverse Reactions, Alerts This patient has no known allergies or adverse reactions. Medications This patient has no known medications. Results Test Description Test Time Test Comments Text Results Atomic Results Result Comments BLOOD CULTURE 2017-12-22 05:01:00 Test Item Value Reference Range Comments CULTURE (BEAKER) (test fstx=3667) No growth in 5 days [id number] 11:31:00 Test Item Value Reference Range Comments MAGNESIUM (BEAKER) (test 2.2 mg/dL 1.6-2.6 Specimen slightly hemolyzed jhuz=052) BASIC METABOLIC [id number] 11:31:00 Test Item Value Reference Range Comments SODIUM (BEAKER) (test 139 meq/L 136-145 rhal=358) POTASSIUM (BEAKER) (test 4.0 meq/L 3.5-5.1 Specimen slightly arcn=741) hemolyzed CHLORIDE (BEAKER) (test 104 meq/L 98-107 wtbk=405) CO2 (BEAKER) (test 27 meq/L 22-29 xrat=892) BLOOD UREA NITROGEN 7 mg/dL 7-21 (BEAKER) (test spcl=058) CREATININE (BEAKER) (test 0.60 mg/dL 0.57-1.25 Specimen slightly rxlm=777) hemolyzed GLUCOSE RANDOM (BEAKER) 113 mg/dL 70-105 (test jpqh=948) CALCIUM (BEAKER) (test 8.3 mg/dL 8.4-10.2 xlxx=587) EGFR (BEAKER) (test 95 mL/min/1.73 sq m ESTIMATED GFR IS NOT eddp=3597) ACCURATE CREATININE CLEARANCE IN PREDICTING GLOMERULAR FILTRATION RATE. ESTIMATED GFR IS NOT APPLICABLE FOR DIALYSIS PATIENTS. URINE [id number] 09:10:00 Test Item Value Reference Range Comments CULTURE (BEAKER) (test xenm=1669) Amikacin (test code=1) Aztreonam (test code=32) Cefepime (test code=51) Cefoxitin (test code=68) Ceftazidime (test code=27) Ceftriaxone (test code=52) Ertapenem (test code=38) Gentamicin (test code=18) Levofloxacin (test code=22) Meropenem (test code=34) Nitrofurantoin (test code=23) Piperacillin + Tazobactam (test code=29) Tetracycline (test code=2) Tobramycin (test code=25) Trimethoprim + Sulfamethoxazole (test code=47) CULTURE (BEAKER) (test azyy=7205) >100,000 col/mL Citrobacter braakii CBC W/PLT COUNT & AUTO [id number] 07:05:00 Test Item Value Reference Range Comments WHITE BLOOD CELL COUNT (BEAKER) (test efve=563) 7.5 K/ L 3.5-10.5 RED BLOOD CELL COUNT (BEAKER) (test ahep=278) 4.30 M/ L 3.93-5.22 HEMOGLOBIN (BEAKER) (test ammb=598) 10.1 GM/DL 11.2-15.7 HEMATOCRIT (BEAKER) (test acvf=820) 32.6 % 34.1-44.9 MEAN CORPUSCULAR VOLUME (BEAKER) (test wsat=051) 75.8 fL 79.4-94.8 MEAN CORPUSCULAR HEMOGLOBIN (BEAKER) (test 23.5 pg 25.6-32.2 lwsd=560) MEAN CORPUSCULAR HEMOGLOBIN CONC (BEAKER) (test 31.0 GM/DL 32.2-35.5 ndft=993) RED CELL DISTRIBUTION WIDTH (BEAKER) (test 14.1 % 11.7-14.4 ygxb=432) PLATELET COUNT (BEAKER) (test rkkh=579) 289 K/CU MM 150-450 MEAN PLATELET VOLUME (BEAKER) (test tqap=576) 9.1 fL 9.4-12.3 NUCLEATED RED BLOOD CELLS (BEAKER) (test 0 /100 WBC 0-0 cskm=117) NEUTROPHILS RELATIVE PERCENT (BEAKER) (test 73 % qrjs=870) LYMPHOCYTES RELATIVE PERCENT (BEAKER) (test 15 % kyft=409) MONOCYTES RELATIVE PERCENT (BEAKER) (test 9 % jecg=167) EOSINOPHILS RELATIVE PERCENT (BEAKER) (test 2 % nefu=386) BASOPHILS RELATIVE PERCENT (BEAKER) (test 0 % hore=395) NEUTROPHILS ABSOLUTE COUNT (BEAKER) (test 5.50 K/ L 1.56-6.13 kkwl=231) LYMPHOCYTES ABSOLUTE COUNT (BEAKER) (test 1.12 K/ L 1.18-3.74 wovg=565) MONOCYTES ABSOLUTE COUNT (BEAKER) (test 0.67 K/ L 0.24-0.36 dgfm=095) EOSINOPHILS ABSOLUTE COUNT (BEAKER) (test 0.16 K/ L 0.04-0.36 yxva=152) BASOPHILS ABSOLUTE COUNT (BEAKER) (test 0.03 K/ L 0.01-0.08 hmtp=148) IMMATURE GRANULOCYTES-RELATIVE PERCENT (BEAKER) 0 % 0-1 (test hdis=0427) [id number] 08:15:00 Test Item Value Reference Range Comments MAGNESIUM (BEAKER) (test tack=785) 1.7 mg/dL 1.6-2.6 CBC W/PLT COUNT & AUTO [id number] 04:24:00 Test Item Value Reference Range Comments WHITE BLOOD CELL COUNT (BEAKER) (test cuyr=890) 6.7 K/ L 3.5-10.5 RED BLOOD CELL COUNT (BEAKER) (test fpdw=206) 3.69 M/ L 3.93-5.22 HEMOGLOBIN (BEAKER) (test bdnd=879) 8.6 GM/DL 11.2-15.7 HEMATOCRIT (BEAKER) (test itrw=368) 28.5 % 34.1-44.9 MEAN CORPUSCULAR VOLUME (BEAKER) (test etvm=863) 77.2 fL 79.4-94.8 MEAN CORPUSCULAR HEMOGLOBIN (BEAKER) (test 23.3 pg 25.6-32.2 bhzw=125) MEAN CORPUSCULAR HEMOGLOBIN CONC (BEAKER) (test 30.2 GM/DL 32.2-35.5 mqqg=256) RED CELL DISTRIBUTION WIDTH (BEAKER) (test 13.7 % 11.7-14.4 qbyl=991) PLATELET COUNT (BEAKER) (test hkhz=433) 249 K/CU MM 150-450 MEAN PLATELET VOLUME (BEAKER) (test dmvt=808) 8.8 fL 9.4-12.3 NUCLEATED RED BLOOD CELLS (BEAKER) (test 0 /100 WBC 0-0 fajq=144) NEUTROPHILS RELATIVE PERCENT (BEAKER) (test 64 % tkpr=362) LYMPHOCYTES RELATIVE PERCENT (BEAKER) (test 21 % nqys=216) MONOCYTES RELATIVE PERCENT (BEAKER) (test 12 % qyvk=458) EOSINOPHILS RELATIVE PERCENT (BEAKER) (test 3 % clcn=038) BASOPHILS RELATIVE PERCENT (BEAKER) (test 0 % jhbp=041) NEUTROPHILS ABSOLUTE COUNT (BEAKER) (test 4.23 K/ L 1.56-6.13 lzcq=566) LYMPHOCYTES ABSOLUTE COUNT (BEAKER) (test 1.39 K/ L 1.18-3.74 ylxe=295) MONOCYTES ABSOLUTE COUNT (BEAKER) (test 0.80 K/ L 0.24-0.36 ueax=701) EOSINOPHILS ABSOLUTE COUNT (BEAKER) (test 0.20 K/ L 0.04-0.36 xcln=544) BASOPHILS ABSOLUTE COUNT (BEAKER) (test 0.02 K/ L 0.01-0.08 znrk=151) IMMATURE GRANULOCYTES-RELATIVE PERCENT (BEAKER) 0 % 0-1 (test rnza=4517) BASIC METABOLIC [id number] 04:19:00 Test Item Value Reference Range Comments SODIUM (BEAKER) (test 139 meq/L 136-145 ziqx=151) POTASSIUM (BEAKER) (test 3.1 meq/L 3.5-5.1 pgso=455) CHLORIDE (BEAKER) (test 103 meq/L 98-107 vujt=899) CO2 (BEAKER) (test 29 meq/L 22-29 rzod=842) BLOOD UREA NITROGEN 12 mg/dL 7-21 (BEAKER) (test kkvn=090) CREATININE (BEAKER) (test 0.65 mg/dL 0.57-1.25 ptgm=145) GLUCOSE RANDOM (BEAKER) 91 mg/dL 70-105 (test esqg=807) CALCIUM (BEAKER) (test 8.1 mg/dL 8.4-10.2 twwh=712) EGFR (BEAKER) (test 87 mL/min/1.73 sq m ESTIMATED GFR IS NOT ynmp=2846) ACCURATE CREATININE CLEARANCE IN PREDICTING GLOMERULAR FILTRATION RATE. ESTIMATED GFR IS NOT APPLICABLE FOR DIALYSIS PATIENTS. EEG MONITORING WITH VIDEO RECORDING EACH 24 [id number] 16:19:00Addendum BeginsAddendum:Start time: 0645Stop time: 1613 There [...] 12/16/2017 to DATE OF REPORT 12/16/17 ACC: [id number] Start time: 22: 43 Stop time: 06:45 ICD-10: G93.40 CPT Code: 72185 HISTORY: 82 yo F with history of [...] Fellow Gely Cleary MD, MS Epilepsy/Neurophysiology Attending [facility] METABOLIC [id number] 04:38:00 Test Item Value Reference Range Comments SODIUM (BEAKER) (test 142 meq/L 136-145 hcaz=501) POTASSIUM (BEAKER) (test 3.0 meq/L 3.5-5.1 esou=503) CHLORIDE (BEAKER) (test 104 meq/L 98-107 hiws=647) CO2 (BEAKER) (test 31 meq/L 22-29 vlmr=030) BLOOD UREA NITROGEN 13 mg/dL 7-21 (BEAKER) (test fqvi=527) CREATININE (BEAKER) (test 0.64 mg/dL 0.57-1.25 xqfa=718) GLUCOSE RANDOM (BEAKER) 122 mg/dL 70-105 (test hrlr=924) CALCIUM (BEAKER) (test 8.1 mg/dL 8.4-10.2 anmi=496) EGFR (BEAKER) (test 89 mL/min/1.73 sq m ESTIMATED GFR IS NOT smkg=0288) ACCURATE CREATININE CLEARANCE IN PREDICTING GLOMERULAR FILTRATION RATE. ESTIMATED GFR IS NOT APPLICABLE FOR DIALYSIS PATIENTS. CBC W/PLT COUNT & AUTO [id number] 04:03:00 Test Item Value Reference Range Comments WHITE BLOOD CELL COUNT (BEAKER) (test lvoc=066) 8.6 K/ L 3.5-10.5 RED BLOOD CELL COUNT (BEAKER) (test eufn=943) 3.94 M/ L 3.93-5.22 HEMOGLOBIN (BEAKER) (test vekr=484) 9.1 GM/DL 11.2-15.7 HEMATOCRIT (BEAKER) (test roue=261) 30.3 % 34.1-44.9 MEAN CORPUSCULAR VOLUME (BEAKER) (test fyam=638) 76.9 fL 79.4-94.8 MEAN CORPUSCULAR HEMOGLOBIN (BEAKER) (test 23.1 pg 25.6-32.2 tlwm=608) MEAN CORPUSCULAR HEMOGLOBIN CONC (BEAKER) (test 30.0 GM/DL 32.2-35.5 ncgw=190) RED CELL DISTRIBUTION WIDTH (BEAKER) (test 13.4 % 11.7-14.4 odsk=757) PLATELET COUNT (BEAKER) (test sqsh=533) 287 K/CU MM 150-450 MEAN PLATELET VOLUME (BEAKER) (test clbq=234) 8.7 fL 9.4-12.3 NUCLEATED RED BLOOD CELLS (BEAKER) (test 0 /100 WBC 0-0 xdtu=825) NEUTROPHILS RELATIVE PERCENT (BEAKER) (test 74 % lbnd=566) LYMPHOCYTES RELATIVE PERCENT (BEAKER) (test 16 % oxru=563) MONOCYTES RELATIVE PERCENT (BEAKER) (test 9 % tuhv=426) EOSINOPHILS RELATIVE PERCENT (BEAKER) (test 1 % nbmq=052) BASOPHILS RELATIVE PERCENT (BEAKER) (test 0 % oqmw=976) NEUTROPHILS ABSOLUTE COUNT (BEAKER) (test 6.35 K/ L 1.56-6.13 qcdm=082) LYMPHOCYTES ABSOLUTE COUNT (BEAKER) (test 1.35 K/ L 1.18-3.74 iape=663) MONOCYTES ABSOLUTE COUNT (BEAKER) (test 0.80 K/ L 0.24-0.36 aopa=150) EOSINOPHILS ABSOLUTE COUNT (BEAKER) (test 0.08 K/ L 0.04-0.36 vuam=059) BASOPHILS ABSOLUTE COUNT (BEAKER) (test 0.03 K/ L 0.01-0.08 svyv=455) IMMATURE GRANULOCYTES-RELATIVE PERCENT (BEAKER) 0 % 0-1 (test dyon=1422) EEG AWAKE AND [id number] 23:06:00For STAT EEG- after 5 PM weekdays, weekends and holidays, page the on-call manager regional sales Reason for exam:->seizure, AMSDATE OF TEST: 1/21/18DATE OF REPORT 12/16/17ACC: [id number]: [id number] time : 22:22Stop time: 22:43ICD-10: G93.40CPT Code: 32281 HISTORY: 82 yo F with history of [...] Fellow Nabila Sanchez M.D., FACNSProfessor of NeurologyDirector, [facility] EpilepsyTwin [facility] HospitalerSam[facility] Neurophysiology Lab Electronically signed by: NABILA Foreman 12/16/2017 11:06 PMRAD, CHEST, 1 VIEW, NON [id number] 21:41: 00Reason for exam:->concern for PNAShould this [...] MDReport Verified Date/Time: 12/16/2017 21:41:51 Reading Location: [address] Reading Room [id number] 19:57:00 Test Item Value Reference Range Comments FERRITIN (BEAKER) (test jmsm=185) 36 ng/mL 5-275 VITAMIN D, [id number] 19:57:00 Test Item Value Reference Range Comments VITAMIN D 25-OH (BEAKER) (test mywv=7351) 8.2 ng/mL 6.6-49.9 Effective 09/05/2017: Reference Range ChangeNew: 6.6-49.9 ng/mL Previous: 13.0 -47.8 ng/mLRecommended Vitamin D Target Range: 30.0-40.0 ng/mLTSH/FREE T4 IF [id number] 19:57:00 Test Item Value Reference Range Comments THYROID STIMULATING HORMONE (BEAKER) (test 3.15 uIU/mL 0.35-4.94 ckaj=802) VITAMIN B12 AND [id number] 19:57:00 Test Item Value Reference Range Comments VITAMIN B12 (BEAKER) (test phrq=744) 376 pg/mL 213-816 FOLATE (BEAKER) (test kjci=532) 15.8 ng/mL >=7.0 URINALYSIS W/ [id number] 19:28:00 Test Item Value Reference Range Comments COLOR (BEAKER) (test henm=120) Yellow CLARITY (BEAKER) (test llmr=097) Clear SPECIFIC GRAVITY UA (BEAKER) (test deex=523) 1.017 1.001-1.035 PH UA (BEAKER) (test hvji=756) 5.5 5.0-8.0 PROTEIN UA (BEAKER) (test vgtu=351) 50 mg/dL Negative GLUCOSE UA (BEAKER) (test vzlr=431) Negative Negative KETONES UA (BEAKER) (test cjpi=320) 40 mg/dL Negative BILIRUBIN UA (BEAKER) (test onle=601) Negative Negative BLOOD UA (BEAKER) (test bomx=804) Negative Negative NITRITE UA (BEAKER) (test mcso=388) Negative Negative LEUKOCYTE ESTERASE UA (BEAKER) (test pqla=609) Moderate Negative UROBILINOGEN UA (BEAKER) (test lfsx=401) 0.2 mg/dL 0.2-1.0 RBC UA (BEAKER) (test iltl=203) 1 /HPF WBC UA (BEAKER) (test qrjp=936) 55 /HPF BACTERIA (BEAKER) (test zjhk=901) Occasional MUCUS (BEAKER) (test hooo=5713) Many HYALINE CASTS (BEAKER) (test hmnd=682) 10 /LPF SOURCE(BEAKER) (test innp=0205) Urine, [place] IRON, TIBC, % SAT. (WITHOUT FERRITIN)2017-12-16 19:21:00 Test Item Value Reference Range Comments IRON (BEAKER) (test ttpr=639) 24 ug/dL 40-160 TOTAL IRON BINDING CAPACITY (BEAKER) (test 309 ug/dL 250-450 aeyd=621) IRON % SATURATION (2) (BEAKER) (test bpyf=2610) 8 % 20-55 BASIC METABOLIC [id number] 19:20:00 Test Item Value Reference Range Comments SODIUM (BEAKER) (test 141 meq/L 136-145 eiyo=124) POTASSIUM (BEAKER) (test 4.0 meq/L 3.5-5.1 Specimen moderately djdi=863) hemolyzed CHLORIDE (BEAKER) (test 102 meq/L 98-107 tdjr=595) CO2 (BEAKER) (test 30 meq/L 22-29 bwqj=537) BLOOD UREA NITROGEN 12 mg/dL 7-21 (BEAKER) (test ysou=955) CREATININE (BEAKER) (test 0.66 mg/dL 0.57-1.25 Specimen moderately rpcb=592) hemolyzed GLUCOSE RANDOM (BEAKER) 102 mg/dL 70-105 (test mfcx=162) CALCIUM (BEAKER) (test 8.3 mg/dL 8.4-10.2 ntai=373) EGFR (BEAKER) (test 86 mL/min/1.73 sq m ESTIMATED GFR IS NOT teqr=9091) ACCURATE CREATININE CLEARANCE IN PREDICTING GLOMERULAR FILTRATION RATE. ESTIMATED GFR IS NOT APPLICABLE FOR DIALYSIS PATIENTS. CBC W/PLT COUNT & AUTO [id number] 19:06:00 Test Item Value Reference Range Comments WHITE BLOOD CELL COUNT (BEAKER) (test zzej=738) 8.2 K/ L 3.5-10.5 RED BLOOD CELL COUNT (BEAKER) (test sswp=948) 4.05 M/ L 3.93-5.22 HEMOGLOBIN (BEAKER) (test fmcd=692) 9.4 GM/DL 11.2-15.7 HEMATOCRIT (BEAKER) (test hyqz=968) 30.9 % 34.1-44.9 MEAN CORPUSCULAR VOLUME (BEAKER) (test guqp=226) 76.3 fL 79.4-94.8 MEAN CORPUSCULAR HEMOGLOBIN (BEAKER) (test 23.2 pg 25.6-32.2 gaqh=491) MEAN CORPUSCULAR HEMOGLOBIN CONC (BEAKER) (test 30.4 GM/DL 32.2-35.5 qkig=671) RED CELL DISTRIBUTION WIDTH (BEAKER) (test 13.6 % 11.7-14.4 epsh=620) PLATELET COUNT (BEAKER) (test ulgx=011) 301 K/CU MM 150-450 MEAN PLATELET VOLUME (BEAKER) (test teup=939) 8.7 fL 9.4-12.3 NUCLEATED RED BLOOD CELLS (BEAKER) (test 0 /100 WBC 0-0 epge=879) NEUTROPHILS RELATIVE PERCENT (BEAKER) (test 78 % jqji=488) LYMPHOCYTES RELATIVE PERCENT (BEAKER) (test 13 % wfpg=085) MONOCYTES RELATIVE PERCENT (BEAKER) (test 9 % bkah=484) EOSINOPHILS RELATIVE PERCENT (BEAKER) (test 1 % vdhr=046) BASOPHILS RELATIVE PERCENT (BEAKER) (test 0 % kfpp=631) NEUTROPHILS ABSOLUTE COUNT (BEAKER) (test 6.35 K/ L 1.56-6.13 xtjq=451) LYMPHOCYTES ABSOLUTE COUNT (BEAKER) (test 1.06 K/ L 1.18-3.74 zkvr=462) MONOCYTES ABSOLUTE COUNT (BEAKER) (test 0.70 K/ L 0.24-0.36 kchr=040) EOSINOPHILS ABSOLUTE COUNT (BEAKER) (test 0.04 K/ L 0.04-0.36 kdyn=161) BASOPHILS ABSOLUTE COUNT (BEAKER) (test 0.03 K/ L 0.01-0.08 ifaw=546) IMMATURE GRANULOCYTES-RELATIVE PERCENT (BEAKER) 0 % 0-1 (test yorx=5154)
--- OUTSIDE RECORDS SUMMARY | 2018-04-24 03:43 | XMS REPORT | Clinical Summary ---
:1935 Author Organization [facility] Address [address] [place] [address] Phone Care Team Providers Name Role Phone [...] type;Hypothyroidism, unspecified type;Acute cystitis without hematuria after 04/23/2017 Social History Tobacco Use Types Packs/Day Years Used Date Never Smoker Smokeless Tobacco: Never Used Sex Assigned at Date Recorded Not on file Last Filed Vital Signs Vital Sign Reading Time Taken Blood Pressure 157/77 12/20/2017 11:34 AM [employer] Pulse 76 12/20/2017 11:34 AM [employer] Temperature 36.5 C (97.7 F) 12/20/2017 11:34 AM [employer] Respiratory Rate 18 12/20/2017 11:34 AM [employer] Oxygen Saturation 98% 12/20/2017 11:34 AM [employer] Inhaled Oxygen Concentration - - Weight 54 kg (119 lb) 12/20/2017 5:00 AM [employer] Height 157.5 cm (5' 2") 12/16/2017 5:25 PM [employer] Body Mass Index 21.77 12/20/2017 5:00 AM [employer] Plan of Treatment Not on file Results RHYTHM STRIP - SCAN (12/21/2017 2:41 PM)Magnesium (12/19/2017 7:31 AM)Only the most recent of2 resultswithin the time period is included. Component Value Ref Range Magnesium 2.2Comment: Specimen slightly hemolyzed 1.6 - 2.6 mg/dL Specimen Performing Laboratory Blood - Line, Venous [facility] [address] [address] Basic Metabolic Panel (12/19/2017 7:31 AM)Only the [...] Specimen Performing Laboratory Blood - Line, Venous [address] [address] CBC with platelet count + automated diff [...] Specimen Performing Laboratory Blood - Line, Venous [address] [address] CBC with platelet count + automated diff (12/19/2017 6:58 AM)Only the most recent of4 resultswithin the time period is included. Specimen Performing Laboratory Blood Narrative The following orders were created for panel order CBC with platelet count + automated diff. Procedure Abnormality Status --------- ------ CBC with platelet count ...[[id number]]AbnormalFinal result Please view results for these tests [...] to 12/17/2017 DATE OF REPORT 12/16/17 ACC: [id number] Start time: 22:43 Stop time: 06:45 ICD-10: G93.40 CPT Code: 26179 HISTORY: 82 yo F with history of chronic pain, chronic Lozano, osteoporosis, HTN, who was transferred from [facility] for AMS and seizures. UDS [...] External Ris In - 12/17/2017 4:19 PM [employer] Addendum Begins Addendum: Start time: 0645 Stop [...] to 12/17/2017 DATE OF REPORT 12/16/17 ACC: [id number] Start time: 22:43 Stop time: 06:45 ICD-10: G93.40 CPT Code: 15368 HISTORY: 82 yo F with history of [...] TEST: 12/16/17 DATE OF REPORT 12/16/17 ACC: [id number] Start time: 22:22 Stop time: 22:43 ICD-10: G93.40 CPT Code: 41075 HISTORY: 82 yo F with history of [...] Galeas MD Epilepsy Fellow Nabila Sanchez M.D., [facility] Professor of Neurology Director, [facility] Epilepsy [place], [facility] Neurophysiology Lab Procedure Note Interface, External Ris In - 12/16/2017 11:06 PM [employer]END[employer] DATE OF TEST: 12/16/17 DATE OF REPORT 12/16/17 ACC: [id number] Start time: 22:22 Stop time: 22:43 ICD-10: G93.40 CPT Code: 81035 HISTORY: 82 yo F with history of chronic pain, chronic Lozano, osteoporosis, HTN, who was transferred from [facility] for AMS and seizures. UDS [...] Galeas MD Epilepsy Fellow Nabila Sanchez M.D., [facility] Professor of Neurology Director, [facility] Epilepsy [place], [facility] Lab chest 1 view portable / [...] MD Report Verified Date/Time:12/16/2017 21:41:51 Reading Location: [address] Reading Room Procedure Note Interface, External Ris In - 12/16/2017 9:44 PM [employer]ENDANT FINAL REPORT INDICATION: concern for PNA COMPARISON: None TECHNIQUE: Single frontal view of the chest. FINDINGS: Limited by severe scoliosis and contractures. Lungs and pleura: Clear lungs. No effusion. Heart and mediastinum: Normal heart size. Unremarkable mediastinal contours. Osseous structures: No acute abnormality. Other: None. IMPRESSION: No acute intrathoracic abnormality. Signed: JR Lamb Robert MD Report Verified Date/Time: 12/16/2017 21:41:51 Reading Location: [address] Reading Room Urine culture (12/16/2017 8:45 PM) Component Value Ref Range Result Result >100,000 col/mL Citrobacter braakii (A) Specimen Performing Laboratory Urine - Urine, Catal[place] [address] [address] Organism Antibiotic Method Susceptibility Citrobacter braakii Amikacin [...] 15.8 >=7.0 ng/mL Specimen Performing Laboratory Blood [address] [address] TSH/Free T4 If Indicated (12/16/2017 6:50 PM) Component Value Ref Range TSH 3.15 0.35 - 4.94 uIU/mL Specimen Performing Laboratory Blood [address] [address] Iron, TIBC, % sat. (without ferritin) (12/16/2017 6:50 PM) Component Value Ref Range Iron 24 (L) 40 - 160 ug/dL TIBC 309 250 - 450 ug/dL Iron % Saturation 8 (L) 20 - 55 % Specimen Performing Laboratory [address] [address] Vitamin D, 25-Hydroxy (12/16/2017 6:50 PM) Component Value Ref Range Vitamin D 25-Hydroxy 8.2 6.6 - 49.9 ng/mL Specimen Performing Laboratory Blood [address] [address] Narrative Effective 09/05/2017: Reference Range Change New: 6.6-49.9 ng/mL Previous: 13.0-47.8 ng/mL Recommended Vitamin D Target Range: 30.0-40.0 ng/mL Blood culture (12/16/2017 6:50 PM) Component Value Ref Range Result No growth in 5 days Specimen Performing Laboratory Blood - Arm, Right [address] [address] Urinalysis w/ Microscopic (12/16/2017 6:50 PM) Component Value Ref Range Color, UA Yellow Clarity, UA Clear Specific [place], UA 1.017 1.001 - 1.035 pH, UA [...] Specimen Performing Laboratory Urine - Urine, Catal[place] [address] [address] Ferritin (12/16/2017 6:50 PM) Component Value Ref Range Ferritin 36 5 - 275 ng/mL Specimen Performing Laboratory Blood [address] [address] after 04/23/2017
[2018-04-24] MEDS ORDERED: HYDROCODONE/APAP 10/325 TAB ONE (03:59)
[2018-04-24] MEDS ORDERED: cloNIDine HCl 0.1 MG TAB ONE (03:59)
--- NOTE | 2018-04-24 04:55 | EDPHYS ---
Physician Documentation [facility] Name: Gloria Armenta Age: 82 yrs Sex: Female : 1935 Arrival Date: 04/24/2018 Time: 03:41 Bed 6 Private MD: ED Physician Bashir Langley HPI: 04/24 04:13 This 82 yrs old Female presents to ER via Wheelchair with complaints of rn Headache. 04:13 The patient complains of pain to the forehead. The patient describes the headache as rn aching. Onset: The symptoms/episode began/occurred today. Associated signs and symptoms: Pertinent positives: This patient does not have any pertinent positive signs or symptoms associated with a headache. Pertinent negatives: altered mental status, neck stiffness, vision changes, vision loss, vomiting, weakness, vertigo. Headache History: The patient has had previous headaches and this one is similar to previous episodes. The patient has experienced similar episodes in the past, chronically. The patient has not recently seen a physician. Historical: - Allergies: 03:54 Aspirin; ak1 03:54 Cefaclor; ak1 03:54 Celecoxib; ak1 03:54 Cephalexin; ak1 03:54 CEPHALOSPORINS; ak1 03:54 Chlorpromazine; ak1 03:54 esomeprazole mag; ak1 03:54 chlorpromazine HCl; ak1 03:54 Ketorolac; ak1 03:54 Meperidine; ak1 03:54 ketorolac tromethamine; ak1 03:54 Morphine; ak1 03:54 prochlorperazine Edisylate; ak1 03:54 Prochlorperazine Maleate; ak1 03:54 Sulfa (Sulfonamide Antibiotics); ak1 03:54 SUMATRIPTAN; ak1 03:54 Sumatriptan Succinate; ak1 03:54 Rofecoxib; ak1 - PMHx: 03:54 Chronic headaches; Chronic pain; Hypertension; ak1 - Immunization history:: Adult Immunizations unknown. - Social history:: Smoking status: Patient/guardian denies using tobacco. - Ebola Screening: : No symptoms or risks identified at this time. - Family history:: not pertinent. - Hospitalizations: : No recent hospitalization is reported. ROS: 04:13 Constitutional: Negative for fever, chills, and weight loss, Eyes: Negative for injury, rn pain, redness, and discharge, Neck: Negative for injury, pain, and swelling, Cardiovascular: Negative for chest pain, palpitations, and edema, Respiratory: Negative for shortness of breath, cough, wheezing, and pleuritic chest pain, Abdomen/GI: Negative for abdominal pain, vomiting, diarrhea, and constipation, Back: Negative for injury and pain, MS/Extremity: Negative for injury and deformity, Skin: Negative for injury, rash, and discoloration, Neuro: Negative for weakness, numbness, tingling, and seizure. Exam: 04:13 Constitutional: This is a well developed, well nourished patient who is awake, alert, rn and in no acute distress. Head/Face: Normocephalic, atraumatic. Eyes: Pupils equal round and reactive to light, extra-ocular motions intact. Lids and lashes normal. Conjunctiva and sclera are non-icteric and not injected. Cornea within normal limits. Periorbital areas with no swelling, redness, or edema. Neck: Trachea midline, no thyromegaly or masses palpated, and no cervical lymphadenopathy. Supple, full range of motion without nuchal rigidity, or vertebral point tenderness. No Meningismus. Neuro: Awake and alert, GCS 15, oriented to person, place, time, and situation. Cranial nerves II-XII grossly intact. Motor strength 5/5 in all extremities. Sensory grossly intact. Vital Signs: 03:51 BP 220 / 117; Pulse 107; Resp 20; Temp 98.4(O); Pulse Ox 97% on R/A; Weight 58.97 kg ak1 (R); Height 5 ft. 7 in. (170.18 cm) (R); Pain 8/10; 04:10 BP 229 / 101; Pulse 86; Resp 18; Temp 98.4; Pulse Ox 98% on R/A; ak1 05:02 BP 192 / 104; Pulse 89; Resp 16; Temp 98.6; Pulse Ox 98% on R/A; Pain 0/10; ak1 03:51 Body Mass Index 20.36 (58.97 kg, 170.18 cm) ak1 Lindsey Coma Score: 04:54 Eye Response: spontaneous(4). Verbal Response: oriented(5). Motor Response: obeys rn commands(6). Total: 15. MDM: 03:48 Patient medically screened. rn 04:54 Differential diagnosis: hypertensive headache, migraine, tension headache, vasomotor rn headache. Data reviewed: vital signs, nurses notes, old medical records, and as a result, I will discharge patient. Counseling: I had a detailed discussion with the patient and/or guardian regarding: the historical points, exam findings, and any diagnostic results supporting the discharge/admit diagnosis, the need for outpatient follow up, to return to the emergency department if symptoms worsen or persist or if there are any questions or concerns that arise at home. Response to treatment: the patient's symptoms have mildly improved after treatment, and as a result, I will discharge patient. Administered Medications: 04:01 Drug: [place] 10 mg-325 mg 1 tabs Route: PO; ak1 05:06 Follow up: Response: No adverse reaction ak1 04:02 Drug: cloNIDine 0.3 mg Route: PO; ak1 05:06 Follow up: Response: No adverse reaction ak1 Disposition: 04/24/18 04:55 Discharged to Home. Impression: Migraine, Hypertensive Headache. - Condition is Stable. - Discharge Instructions: Migraine Headache. - Medication Reconciliation Form, Thank You Letter, Antibiotic Education, Prescription Opioid Use form. - Follow up: Private Physician; When: As needed; Reason: Recheck today's complaints, Re-evaluation by your physician. - Problem is new. - Symptoms have improved. Signatures: Bashir Langley MD MD rn Krenek, Amber, RN RN ak1 Corrections: (The following items were deleted from the chart) 05:13 04:55 04/24/2018 04:55 Discharged to Home. Impression: Migraine; Hypertensive Headache. ak1 Condition is Stable. Forms are Medication Reconciliation Form, Thank You Letter, Antibiotic Education, Prescription Opioid Use. Follow up: Private Physician; When: As needed; Reason: Recheck today's complaints, Re-evaluation by your physician. Problem is new. Symptoms have improved. rn
--- NOTE | 2018-04-24 04:55 | ER ---
Nurse's Notes [facility] Name: Gloria Armenta Age: 82 yrs Sex: Female : 1935 Arrival Date: 04/24/2018 Time: 03:41 Bed 6 Private MD: Diagnosis: Migraine;Hypertensive Headache Presentation: 04/24 03:51 Presenting complaint: Patient states: headache since 1999. pt took her last tylenol #3 ak1 at 2100 for headache. pt stated she has been taking her blood pressure medication. pt denies N/V. Transition of care: patient was not received from another setting of care. Onset of symptoms was April 23, 2018. Risk Assessment: Do you want to hurt yourself or someone else? Patient reports no desire to harm self or others. Initial Sepsis Screen: Does the patient meet any 2 criteria? No. Patient's initial sepsis screen is negative. Does the patient have a suspected source of infection? No. Patient's initial sepsis screen is negative. Care prior to arrival: None. 03:51 Method Of Arrival: Wheelchair ak1 03:51 Acuity: AURELIO 4 ak1 Triage Assessment: 03:54 Headache History: The patient has had previous headaches and this one is similar to ak1 previous episodes. General: Appears in no apparent distress. Behavior is calm, cooperative. Pain: Complains of pain in headache Pain currently is 8 out of 10 on a pain scale. Pain began 1999 last night Also complains of no other associated symptoms. EENT: No signs and/or symptoms were reported regarding the EENT system. Neuro: Level of Consciousness is awake, alert, obeys commands, Oriented to person, place, time, situation, [employer] Administrator are equal bilaterally Moves all extremities. Gait is steady, Speech is normal, Facial symmetry appears normal. Cardiovascular: No deficits noted. Respiratory: No deficits noted. GI: No signs and/or symptoms were reported involving the gastrointestinal system. : No signs and/or symptoms were reported regarding the genitourinary system. Derm: No signs and/or symptoms reported regarding the dermatologic system. Musculoskeletal: No signs and/or symptoms reported regarding the musculoskeletal system. Historical: - Allergies: 03:54 Aspirin; ak1 03:54 Cefaclor; ak1 03:54 Celecoxib; ak1 03:54 Cephalexin; ak1 03:54 CEPHALOSPORINS; ak1 03:54 Chlorpromazine; ak1 03:54 esomeprazole mag; ak1 03:54 chlorpromazine HCl; ak1 03:54 Ketorolac; ak1 03:54 Meperidine; ak1 03:54 ketorolac tromethamine; ak1 03:54 Morphine; ak1 03:54 prochlorperazine Edisylate; ak1 03:54 Prochlorperazine Maleate; ak1 03:54 Sulfa (Sulfonamide Antibiotics); ak1 03:54 SUMATRIPTAN; ak1 03:54 Sumatriptan Succinate; ak1 03:54 Rofecoxib; ak1 - PMHx: 03:54 Chronic headaches; Chronic pain; Hypertension; ak1 - Immunization history:: Adult Immunizations unknown. - Social history:: Smoking status: Patient/guardian denies using tobacco. - Ebola Screening: : No symptoms or risks identified at this time. - Family history:: not pertinent. - Hospitalizations: : No recent hospitalization is reported. Screenin:56 Abuse screen: Denies threats or abuse. Denies injuries from another. Nutritional ak1 screening: No deficits noted. Tuberculosis screening: No symptoms or risk factors identified. Fall Risk None identified. Assessment: 03:56 Reassessment: Patient appears in no apparent distress at this time. No changes from ak1 previously documented assessment. see triage assessment. 05:05 Reassessment: Patient appears in no apparent distress at this time. Patient states ak1 symptoms have improved. pt asking to go home, ERP notified and aware of pt current vitals. . Vital Signs: 03:51 BP 220 / 117; Pulse 107; Resp 20; Temp 98.4(O); Pulse Ox 97% on R/A; Weight 58.97 kg ak1 (R); Height 5 ft. 7 in. (170.18 cm) (R); Pain 8/10; 04:10 BP 229 / 101; Pulse 86; Resp 18; Temp 98.4; Pulse Ox 98% on R/A; ak1 05:02 BP 192 / 104; Pulse 89; Resp 16; Temp 98.6; Pulse Ox 98% on R/A; Pain 0/10; ak1 03:51 Body Mass Index 20.36 (58.97 kg, 170.18 cm) ak1 Lindsey Coma Score: 04:54 Eye Response: spontaneous(4). Verbal Response: oriented(5). Motor Response: obeys rn commands(6). Total: 15. ED Course: 03:41 Patient arrived in ED. ds1 03:45 Bashir Langley MD is Attending Physician. rn 03:50 Marsha Miles RN is Primary Nurse. ak1 03:51 Arm band placed on Patient placed in an exam room, on a stretcher, on pulse oximetry, ak1 Patient notified of wait time. 03:53 Triage completed. ak1 03:56 Patient has correct armband on for positive identification. Bed in low position. Call ak1 light in reach. Side rails up X 1. Pulse ox on. NIBP on. 04:59 No provider procedures requiring assistance completed. ak1 05:05 Patient did not have IV access during this emergency room visit. ak1 Administered Medications: 04:01 Drug: [place] 10 mg-325 mg 1 tabs Route: PO; ak1 05:06 Follow up: Response: No adverse reaction ak1 04:02 Drug: cloNIDine 0.3 mg Route: PO; ak1 05:06 Follow up: Response: No adverse reaction ak1 Outcome: 04:55 Discharge ordered by . rn 05:04 Discharged to home via wheelchair. ak1 05:04 Condition: improved 05:04 Discharge instructions given to patient, Instructed on discharge instructions, follow up and referral plans. Demonstrated understanding of instructions, follow-up care. 05:13 Patient left the ED. ak1 Signatures: Shena Bergman ds1 Bashir Langley MD MD rn Krenek, Amber, RN RN ak1
[2018-04-24 05:18] VITALS: O2SAT 98
[2018-04-24 05:19] VITALS: BP 192/104; TEMP 98.6
== END 2018-04-24 05:13 | disposition home or self-care (01) ==
LOC: ER 03:41
DX: G43.909 Migraine, unspecified, not intractable, without status migrainosus (principal); I10 Essential (primary) hypertension; Z88.6 Allergy status to analgesic agent; Z88.1 Allergy status to other antibiotic agents; Z88.2 Allergy status to sulfonamides; Z88.8 Allergy status to other drugs, medicaments and biological substances
CPT/HCPCS: 99283

== ENCOUNTER 2018-04-26 21:25 | Emergency (ER) | payer OTHER, SELFPAY ==
--- OUTSIDE RECORDS SUMMARY | 2018-04-26 21:28 | XMS REPORT ---
:1935 [facility] Address [address] [place] [address] [address] [place] [address] Care Team Providers Name Role Phone NICHOLE PEREZ Unavailable Unavailable Problems This patient has no known problems. Allergies, Adverse Reactions, Alerts This patient has no known allergies or adverse reactions. Medications This patient has no known medications. Results Test Description Test Time Test Comments Text Results Atomic Results Result Comments BLOOD CULTURE 2017-12-22 05:01:00 Test Item Value Reference Range Comments CULTURE (BEAKER) (test ymjd=6819) No growth in 5 days [id number] 11:31:00 Test Item Value Reference Range Comments MAGNESIUM (BEAKER) (test 2.2 mg/dL 1.6-2.6 Specimen slightly hemolyzed dwgh=244) BASIC METABOLIC [id number] 11:31:00 Test Item Value Reference Range Comments SODIUM (BEAKER) (test 139 meq/L 136-145 ncud=902) POTASSIUM (BEAKER) (test 4.0 meq/L 3.5-5.1 Specimen slightly dbdg=047) hemolyzed CHLORIDE (BEAKER) (test 104 meq/L 98-107 ngws=047) CO2 (BEAKER) (test 27 meq/L 22-29 wbmb=561) BLOOD UREA NITROGEN 7 mg/dL 7-21 (BEAKER) (test iewt=461) CREATININE (BEAKER) (test 0.60 mg/dL 0.57-1.25 Specimen slightly azph=190) hemolyzed GLUCOSE RANDOM (BEAKER) 113 mg/dL 70-105 (test gkff=526) CALCIUM (BEAKER) (test 8.3 mg/dL 8.4-10.2 dkqb=178) EGFR (BEAKER) (test 95 mL/min/1.73 sq m ESTIMATED GFR IS NOT hcuu=0396) ACCURATE CREATININE CLEARANCE IN PREDICTING GLOMERULAR FILTRATION RATE. ESTIMATED GFR IS NOT APPLICABLE FOR DIALYSIS PATIENTS. URINE [id number] 09:10:00 Test Item Value Reference Range Comments CULTURE (BEAKER) (test hfmv=1789) Amikacin (test code=1) Aztreonam (test code=32) Cefepime (test code=51) Cefoxitin (test code=68) Ceftazidime (test code=27) Ceftriaxone (test code=52) Ertapenem (test code=38) Gentamicin (test code=18) Levofloxacin (test code=22) Meropenem (test code=34) Nitrofurantoin (test code=23) Piperacillin + Tazobactam (test code=29) Tetracycline (test code=2) Tobramycin (test code=25) Trimethoprim + Sulfamethoxazole (test code=47) CULTURE (BEAKER) (test zepw=3414) >100,000 col/mL Citrobacter braakii CBC W/PLT COUNT & AUTO [id number] 07:05:00 Test Item Value Reference Range Comments WHITE BLOOD CELL COUNT (BEAKER) (test ghnp=625) 7.5 K/ L 3.5-10.5 RED BLOOD CELL COUNT (BEAKER) (test baeq=509) 4.30 M/ L 3.93-5.22 HEMOGLOBIN (BEAKER) (test ymlw=228) 10.1 GM/DL 11.2-15.7 HEMATOCRIT (BEAKER) (test rtlz=637) 32.6 % 34.1-44.9 MEAN CORPUSCULAR VOLUME (BEAKER) (test zpbf=624) 75.8 fL 79.4-94.8 MEAN CORPUSCULAR HEMOGLOBIN (BEAKER) (test 23.5 pg 25.6-32.2 dwha=908) MEAN CORPUSCULAR HEMOGLOBIN CONC (BEAKER) (test 31.0 GM/DL 32.2-35.5 fcra=541) RED CELL DISTRIBUTION WIDTH (BEAKER) (test 14.1 % 11.7-14.4 oyeh=653) PLATELET COUNT (BEAKER) (test ethb=749) 289 K/CU MM 150-450 MEAN PLATELET VOLUME (BEAKER) (test crfp=796) 9.1 fL 9.4-12.3 NUCLEATED RED BLOOD CELLS (BEAKER) (test 0 /100 WBC 0-0 wjou=482) NEUTROPHILS RELATIVE PERCENT (BEAKER) (test 73 % jstn=322) LYMPHOCYTES RELATIVE PERCENT (BEAKER) (test 15 % peac=372) MONOCYTES RELATIVE PERCENT (BEAKER) (test 9 % wult=843) EOSINOPHILS RELATIVE PERCENT (BEAKER) (test 2 % omfd=147) BASOPHILS RELATIVE PERCENT (BEAKER) (test 0 % tkle=159) NEUTROPHILS ABSOLUTE COUNT (BEAKER) (test 5.50 K/ L 1.56-6.13 pafj=696) LYMPHOCYTES ABSOLUTE COUNT (BEAKER) (test 1.12 K/ L 1.18-3.74 txyi=037) MONOCYTES ABSOLUTE COUNT (BEAKER) (test 0.67 K/ L 0.24-0.36 tdza=285) EOSINOPHILS ABSOLUTE COUNT (BEAKER) (test 0.16 K/ L 0.04-0.36 pqcu=144) BASOPHILS ABSOLUTE COUNT (BEAKER) (test 0.03 K/ L 0.01-0.08 swaz=793) IMMATURE GRANULOCYTES-RELATIVE PERCENT (BEAKER) 0 % 0-1 (test rshl=4282) [id number] 08:15:00 Test Item Value Reference Range Comments MAGNESIUM (BEAKER) (test vftd=409) 1.7 mg/dL 1.6-2.6 CBC W/PLT COUNT & AUTO [id number] 04:24:00 Test Item Value Reference Range Comments WHITE BLOOD CELL COUNT (BEAKER) (test dcvz=694) 6.7 K/ L 3.5-10.5 RED BLOOD CELL COUNT (BEAKER) (test gxve=795) 3.69 M/ L 3.93-5.22 HEMOGLOBIN (BEAKER) (test dlqc=709) 8.6 GM/DL 11.2-15.7 HEMATOCRIT (BEAKER) (test qxym=116) 28.5 % 34.1-44.9 MEAN CORPUSCULAR VOLUME (BEAKER) (test vftl=661) 77.2 fL 79.4-94.8 MEAN CORPUSCULAR HEMOGLOBIN (BEAKER) (test 23.3 pg 25.6-32.2 dbbs=152) MEAN CORPUSCULAR HEMOGLOBIN CONC (BEAKER) (test 30.2 GM/DL 32.2-35.5 fmqj=590) RED CELL DISTRIBUTION WIDTH (BEAKER) (test 13.7 % 11.7-14.4 gcim=389) PLATELET COUNT (BEAKER) (test pmbt=170) 249 K/CU MM 150-450 MEAN PLATELET VOLUME (BEAKER) (test jxel=680) 8.8 fL 9.4-12.3 NUCLEATED RED BLOOD CELLS (BEAKER) (test 0 /100 WBC 0-0 bpzf=976) NEUTROPHILS RELATIVE PERCENT (BEAKER) (test 64 % kgvr=294) LYMPHOCYTES RELATIVE PERCENT (BEAKER) (test 21 % eoad=930) MONOCYTES RELATIVE PERCENT (BEAKER) (test 12 % sxdu=128) EOSINOPHILS RELATIVE PERCENT (BEAKER) (test 3 % bpcg=979) BASOPHILS RELATIVE PERCENT (BEAKER) (test 0 % pbde=605) NEUTROPHILS ABSOLUTE COUNT (BEAKER) (test 4.23 K/ L 1.56-6.13 kgzc=988) LYMPHOCYTES ABSOLUTE COUNT (BEAKER) (test 1.39 K/ L 1.18-3.74 qiye=403) MONOCYTES ABSOLUTE COUNT (BEAKER) (test 0.80 K/ L 0.24-0.36 bbfx=551) EOSINOPHILS ABSOLUTE COUNT (BEAKER) (test 0.20 K/ L 0.04-0.36 ygze=097) BASOPHILS ABSOLUTE COUNT (BEAKER) (test 0.02 K/ L 0.01-0.08 zmgu=911) IMMATURE GRANULOCYTES-RELATIVE PERCENT (BEAKER) 0 % 0-1 (test vibu=4666) BASIC METABOLIC [id number] 04:19:00 Test Item Value Reference Range Comments SODIUM (BEAKER) (test 139 meq/L 136-145 dlov=283) POTASSIUM (BEAKER) (test 3.1 meq/L 3.5-5.1 jmze=403) CHLORIDE (BEAKER) (test 103 meq/L 98-107 rsoj=136) CO2 (BEAKER) (test 29 meq/L 22-29 chlu=112) BLOOD UREA NITROGEN 12 mg/dL 7-21 (BEAKER) (test xszr=051) CREATININE (BEAKER) (test 0.65 mg/dL 0.57-1.25 gabi=359) GLUCOSE RANDOM (BEAKER) 91 mg/dL 70-105 (test fvhn=642) CALCIUM (BEAKER) (test 8.1 mg/dL 8.4-10.2 asgp=721) EGFR (BEAKER) (test 87 mL/min/1.73 sq m ESTIMATED GFR IS NOT fkga=5430) ACCURATE CREATININE CLEARANCE IN PREDICTING GLOMERULAR FILTRATION RATE. ESTIMATED GFR IS NOT APPLICABLE FOR DIALYSIS PATIENTS. EEG MONITORING WITH VIDEO RECORDING EACH 24 [id number] 16:19:00Addendum BeginsAddendum:Start time: 0645Stop time: 1613 There [...] 12/16/2017 to DATE OF REPORT 12/16/17 ACC: [id number] Start time: 22: 43 Stop time: 06:45 ICD-10: G93.40 CPT Code: 67047 HISTORY: 82 yo F with history of [...] Fellow Gely Cleary MD, MS Epilepsy/Neurophysiology Attending [facility] METABOLIC [id number] 04:38:00 Test Item Value Reference Range Comments SODIUM (BEAKER) (test 142 meq/L 136-145 yvzo=934) POTASSIUM (BEAKER) (test 3.0 meq/L 3.5-5.1 bxux=637) CHLORIDE (BEAKER) (test 104 meq/L 98-107 vanr=767) CO2 (BEAKER) (test 31 meq/L 22-29 bnzk=561) BLOOD UREA NITROGEN 13 mg/dL 7-21 (BEAKER) (test okkx=854) CREATININE (BEAKER) (test 0.64 mg/dL 0.57-1.25 pzlk=021) GLUCOSE RANDOM (BEAKER) 122 mg/dL 70-105 (test gvea=459) CALCIUM (BEAKER) (test 8.1 mg/dL 8.4-10.2 rxrz=176) EGFR (BEAKER) (test 89 mL/min/1.73 sq m ESTIMATED GFR IS NOT xell=8742) ACCURATE CREATININE CLEARANCE IN PREDICTING GLOMERULAR FILTRATION RATE. ESTIMATED GFR IS NOT APPLICABLE FOR DIALYSIS PATIENTS. CBC W/PLT COUNT & AUTO [id number] 04:03:00 Test Item Value Reference Range Comments WHITE BLOOD CELL COUNT (BEAKER) (test irwv=647) 8.6 K/ L 3.5-10.5 RED BLOOD CELL COUNT (BEAKER) (test azsh=773) 3.94 M/ L 3.93-5.22 HEMOGLOBIN (BEAKER) (test cbxw=496) 9.1 GM/DL 11.2-15.7 HEMATOCRIT (BEAKER) (test dxbl=837) 30.3 % 34.1-44.9 MEAN CORPUSCULAR VOLUME (BEAKER) (test ojsq=098) 76.9 fL 79.4-94.8 MEAN CORPUSCULAR HEMOGLOBIN (BEAKER) (test 23.1 pg 25.6-32.2 knqq=055) MEAN CORPUSCULAR HEMOGLOBIN CONC (BEAKER) (test 30.0 GM/DL 32.2-35.5 ehty=952) RED CELL DISTRIBUTION WIDTH (BEAKER) (test 13.4 % 11.7-14.4 fgca=283) PLATELET COUNT (BEAKER) (test oxxl=062) 287 K/CU MM 150-450 MEAN PLATELET VOLUME (BEAKER) (test xpqx=354) 8.7 fL 9.4-12.3 NUCLEATED RED BLOOD CELLS (BEAKER) (test 0 /100 WBC 0-0 vucn=506) NEUTROPHILS RELATIVE PERCENT (BEAKER) (test 74 % lrhd=688) LYMPHOCYTES RELATIVE PERCENT (BEAKER) (test 16 % aack=955) MONOCYTES RELATIVE PERCENT (BEAKER) (test 9 % wfjg=752) EOSINOPHILS RELATIVE PERCENT (BEAKER) (test 1 % iuif=563) BASOPHILS RELATIVE PERCENT (BEAKER) (test 0 % phiz=405) NEUTROPHILS ABSOLUTE COUNT (BEAKER) (test 6.35 K/ L 1.56-6.13 rhkj=170) LYMPHOCYTES ABSOLUTE COUNT (BEAKER) (test 1.35 K/ L 1.18-3.74 wlaq=608) MONOCYTES ABSOLUTE COUNT (BEAKER) (test 0.80 K/ L 0.24-0.36 etih=593) EOSINOPHILS ABSOLUTE COUNT (BEAKER) (test 0.08 K/ L 0.04-0.36 ipni=003) BASOPHILS ABSOLUTE COUNT (BEAKER) (test 0.03 K/ L 0.01-0.08 awms=048) IMMATURE GRANULOCYTES-RELATIVE PERCENT (BEAKER) 0 % 0-1 (test dnlp=8273) EEG AWAKE AND [id number] 23:06:00For STAT EEG- after 5 PM weekdays, weekends and holidays, page 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 Reason for exam:->seizure, AMSDATE OF TEST: 1/21/18DATE OF REPORT 12/16/17ACC: [id number]: [id number] time : 22:22Stop time: 22:43ICD-10: G93.40CPT Code: 27484 HISTORY: 82 yo F with history of [...] Fellow Nabila Sanchez M.D., FACNSProfessor of NeurologyDirector, [facility]psyBarn[facility]er[facility] Neuro[facility] Lab Electronically signed by: NABILA Foreman 12/16/2017 11:06 PMRAD, CHEST, 1 VIEW, NON [id number] 21:41: 00Reason for exam:->concern for PNAShould this [...] MDReport Verified Date/Time: 12/16/2017 21:41:51 Reading Location: [address] Reading Room [id number] 19:57:00 Test Item Value Reference Range Comments FERRITIN (BEAKER) (test oabi=574) 36 ng/mL 5-275 VITAMIN D, [id number] 19:57:00 Test Item Value Reference Range Comments VITAMIN D 25-OH (BEAKER) (test sivn=5379) 8.2 ng/mL 6.6-49.9 Effective 09/05/2017: Reference Range ChangeNew: 6.6-49.9 ng/mL Previous: 13.0 -47.8 ng/mLRecommended Vitamin D Target Range: 30.0-40.0 ng/mLTSH/FREE T4 IF [id number] 19:57:00 Test Item Value Reference Range Comments THYROID STIMULATING HORMONE (BEAKER) (test 3.15 uIU/mL 0.35-4.94 tqxz=403) VITAMIN B12 AND [id number] 19:57:00 Test Item Value Reference Range Comments VITAMIN B12 (BEAKER) (test htsu=253) 376 pg/mL 213-816 FOLATE (BEAKER) (test mzql=802) 15.8 ng/mL >=7.0 URINALYSIS W/ [id number] 19:28:00 Test Item Value Reference Range Comments COLOR (BEAKER) (test cdhg=734) Yellow CLARITY (BEAKER) (test afhb=598) Clear SPECIFIC GRAVITY UA (BEAKER) (test jbrm=611) 1.017 1.001-1.035 PH UA (BEAKER) (test fuol=737) 5.5 5.0-8.0 PROTEIN UA (BEAKER) (test zrwt=775) 50 mg/dL Negative GLUCOSE UA (BEAKER) (test qcpw=750) Negative Negative KETONES UA (BEAKER) (test yjek=469) 40 mg/dL Negative BILIRUBIN UA (BEAKER) (test pump=845) Negative Negative BLOOD UA (BEAKER) (test abrf=273) Negative Negative NITRITE UA (BEAKER) (test jhla=417) Negative Negative LEUKOCYTE ESTERASE UA (BEAKER) (test jaqz=261) Moderate Negative UROBILINOGEN UA (BEAKER) (test stdp=324) 0.2 mg/dL 0.2-1.0 RBC UA (BEAKER) (test betj=498) 1 /HPF WBC UA (BEAKER) (test qwim=065) 55 /HPF BACTERIA (BEAKER) (test njge=833) Occasional MUCUS (BEAKER) (test ukdq=9851) Many HYALINE CASTS (BEAKER) (test heuw=840) 10 /LPF SOURCE(BEAKER) (test ncmj=9024) Urine, [place] IRON, TIBC, % SAT. (WITHOUT FERRITIN)2017-12-16 19:21:00 Test Item Value Reference Range Comments IRON (BEAKER) (test uonj=523) 24 ug/dL 40-160 TOTAL IRON BINDING CAPACITY (BEAKER) (test 309 ug/dL 250-450 egod=224) IRON % SATURATION (2) (BEAKER) (test hesh=7873) 8 % 20-55 BASIC METABOLIC [id number] 19:20:00 Test Item Value Reference Range Comments SODIUM (BEAKER) (test 141 meq/L 136-145 xgxu=317) POTASSIUM (BEAKER) (test 4.0 meq/L 3.5-5.1 Specimen moderately kcqt=825) hemolyzed CHLORIDE (BEAKER) (test 102 meq/L 98-107 rnds=072) CO2 (BEAKER) (test 30 meq/L 22-29 kwrl=946) BLOOD UREA NITROGEN 12 mg/dL 7-21 (BEAKER) (test ftkw=181) CREATININE (BEAKER) (test 0.66 mg/dL 0.57-1.25 Specimen moderately kdqp=256) hemolyzed GLUCOSE RANDOM (BEAKER) 102 mg/dL 70-105 (test dboq=076) CALCIUM (BEAKER) (test 8.3 mg/dL 8.4-10.2 ocbr=104) EGFR (BEAKER) (test 86 mL/min/1.73 sq m ESTIMATED GFR IS NOT cnqw=6188) ACCURATE CREATININE CLEARANCE IN PREDICTING GLOMERULAR FILTRATION RATE. ESTIMATED GFR IS NOT APPLICABLE FOR DIALYSIS PATIENTS. CBC W/PLT COUNT & AUTO [id number] 19:06:00 Test Item Value Reference Range Comments WHITE BLOOD CELL COUNT (BEAKER) (test mwvg=970) 8.2 K/ L 3.5-10.5 RED BLOOD CELL COUNT (BEAKER) (test lzry=933) 4.05 M/ L 3.93-5.22 HEMOGLOBIN (BEAKER) (test ppmv=133) 9.4 GM/DL 11.2-15.7 HEMATOCRIT (BEAKER) (test vxau=975) 30.9 % 34.1-44.9 MEAN CORPUSCULAR VOLUME (BEAKER) (test byhp=469) 76.3 fL 79.4-94.8 MEAN CORPUSCULAR HEMOGLOBIN (BEAKER) (test 23.2 pg 25.6-32.2 opun=257) MEAN CORPUSCULAR HEMOGLOBIN CONC (BEAKER) (test 30.4 GM/DL 32.2-35.5 hgoa=406) RED CELL DISTRIBUTION WIDTH (BEAKER) (test 13.6 % 11.7-14.4 eedh=598) PLATELET COUNT (BEAKER) (test qzmq=382) 301 K/CU MM 150-450 MEAN PLATELET VOLUME (BEAKER) (test wmhh=907) 8.7 fL 9.4-12.3 NUCLEATED RED BLOOD CELLS (BEAKER) (test 0 /100 WBC 0-0 syol=927) NEUTROPHILS RELATIVE PERCENT (BEAKER) (test 78 % psvw=087) LYMPHOCYTES RELATIVE PERCENT (BEAKER) (test 13 % slsd=705) MONOCYTES RELATIVE PERCENT (BEAKER) (test 9 % kwdo=552) EOSINOPHILS RELATIVE PERCENT (BEAKER) (test 1 % dtys=796) BASOPHILS RELATIVE PERCENT (BEAKER) (test 0 % oukr=382) NEUTROPHILS ABSOLUTE COUNT (BEAKER) (test 6.35 K/ L 1.56-6.13 crlo=118) LYMPHOCYTES ABSOLUTE COUNT (BEAKER) (test 1.06 K/ L 1.18-3.74 wtam=402) MONOCYTES ABSOLUTE COUNT (BEAKER) (test 0.70 K/ L 0.24-0.36 rngk=989) EOSINOPHILS ABSOLUTE COUNT (BEAKER) (test 0.04 K/ L 0.04-0.36 wgqk=425) BASOPHILS ABSOLUTE COUNT (BEAKER) (test 0.03 K/ L 0.01-0.08 ebru=891) IMMATURE GRANULOCYTES-RELATIVE PERCENT (BEAKER) 0 % 0-1 (test llxt=6296)
--- OUTSIDE RECORDS SUMMARY | 2018-04-26 21:28 | XMS REPORT | Clinical Summary ---
:1935 Author Organization [facility] Address [address] [place] [address] Phone Care Team Providers Name Role Phone [...] type;Hypothyroidism, unspecified type;Acute cystitis without hematuria after 04/25/2017 Social History Tobacco Use Types Packs/Day Years Used Date Never Smoker Smokeless Tobacco: Never Used Sex Assigned at Date Recorded Not on file Last Filed Vital Signs Vital Sign Reading Time Taken Blood Pressure 157/77 12/20/2017 11:34 AM [employer] Pulse 76 12/20/2017 11:34 AM [employer] Temperature 36.5 C (97.7 F) 12/20/2017 11:34 AM [employer] Respiratory Rate 18 12/20/2017 11:34 AM [employer] Oxygen Saturation 98% 12/20/2017 11:34 AM [employer] Inhaled Oxygen Concentration - - Weight 54 kg (119 lb) 12/20/2017 5:00 AM [employer] Height 157.5 cm (5' 2") 12/16/2017 5:25 PM [employer] Body Mass Index 21.77 12/20/2017 5:00 AM [employer] Plan of Treatment Not on file Results RHYTHM STRIP - SCAN (12/21/2017 2:41 PM)Magnesium (12/19/2017 7:31 AM)Only the most recent of2 resultswithin the time period is included. Component Value Ref Range Magnesium 2.2Comment: Specimen slightly hemolyzed 1.6 - 2.6 mg/dL Specimen Performing Laboratory Blood - Line, Venous [facility] [address] [address] Basic Metabolic Panel (12/19/2017 7:31 AM)Only the [...] Specimen Performing Laboratory Blood - Line, Venous [address] [address] CBC with platelet count + automated diff [...] Specimen Performing Laboratory Blood - Line, Venous [address] [address] CBC with platelet count + automated diff (12/19/2017 6:58 AM)Only the most recent of4 resultswithin the time period is included. Specimen Performing Laboratory Blood Narrative The following orders were created for panel order CBC with platelet count + automated diff. Procedure Abnormality Status --------- ------ CBC with platelet count ...[[id number]]AbnormalFinal result Please view results for these tests [...] to 12/17/2017 DATE OF REPORT 12/16/17 ACC: [id number] Start time: 22:43 Stop time: 06:45 ICD-10: G93.40 CPT Code: 08826 HISTORY: 82 yo F with history of chronic pain, chronic Lozano, osteoporosis, HTN, who was transferred from [facility] for AMS and seizures. UDS + [...] External Ris In - 12/17/2017 4:19 PM [employer] Addendum Begins Addendum: Start time: 0645 Stop [...] to 12/17/2017 DATE OF REPORT 12/16/17 ACC: [id number] Start time: 22:43 Stop time: 06:45 ICD-10: G93.40 CPT Code: 86016 HISTORY: 82 yo F with history of [...] TEST: 12/16/17 DATE OF REPORT 12/16/17 ACC: [id number] Start time: 22:22 Stop time: 22:43 ICD-10: G93.40 CPT Code: 15924 HISTORY: 82 yo F with history of [...] Galeas MD Epilepsy Fellow Nabila Sanchez M.D., [facility] Professor of Neurology Director, [facility] Epilepsy [place], [facility] Neurophysiology Lab Procedure Note Interface, External Ris In - 12/16/2017 11:06 PM [employer] DATE OF TEST: 12/16/17 DATE OF REPORT 12/16/17 ACC: [id number] Start time: 22:22 Stop time: 22:43 ICD-10: G93.40 CPT Code: 05118 HISTORY: 82 yo F with history of chronic pain, chronic Lozano, osteoporosis, HTN, who was transferred from [facility] for AMS and seizures. UDS + [...] Galeas MD Epilepsy Fellow Nabila Sanchez M.D., [facility] Professor of Neurology Director, [facility] Epilepsy [place], [facility] Neurophysiology Lab chest 1 view [...] Report Verified Date/Time:12/16/2017 21:41:51 Reading Location: [address] Reading Room Procedure Note Interface, External Ris In - 12/16/2017 9:44 PM [employer] FINAL REPORT INDICATION: concern for PNA COMPARISON: None TECHNIQUE: Single frontal view of the chest. FINDINGS: Limited by severe scoliosis and contractures. Lungs and pleura: Clear lungs. No effusion. Heart and mediastinum: Normal heart size. Unremarkable mediastinal contours. Osseous structures: No acute abnormality. Other: None. IMPRESSION: No acute intrathoracic abnormality. Signed: JR Lamb Robert MD Report Verified Date/Time: 12/16/2017 21:41:51 Reading Location: [address] Reading Room Urine culture (12/16/2017 8:45 PM) Component Value Ref Range Result Result >100,000 col/mL Citrobacter braakii (A) Specimen Performing Laboratory Urine - Urine, [place] [address] [address] Organism Antibiotic Method Susceptibility Citrobacter braakii Amikacin [...] 15.8 >=7.0 ng/mL Specimen Performing Laboratory Blood [address] [address] TSH/Free T4 If Indicated (12/16/2017 6:50 PM) Component Value Ref Range TSH 3.15 0.35 - 4.94 uIU/mL Specimen Performing Laboratory Blood [address] [address] Iron, TIBC, % sat. (without ferritin) (12/16/2017 6:50 PM) Component Value Ref Range Iron 24 (L) 40 - 160 ug/dL TIBC 309 250 - 450 ug/dL Iron % Saturation 8 (L) 20 - 55 % Specimen Performing Laboratory [address] [address] Vitamin D, 25-Hydroxy (12/16/2017 6:50 PM) Component Value Ref Range Vitamin D 25-Hydroxy 8.2 6.6 - 49.9 ng/mL Specimen Performing Laboratory Blood [address] [address] Narrative Effective 09/05/2017: Reference Range Change New: 6.6-49.9 ng/mL Previous: 13.0-47.8 ng/mL Recommended Vitamin D Target Range: 30.0-40.0 ng/mL Blood culture (12/16/2017 6:50 PM) Component Value Ref Range Result No growth in 5 days Specimen Performing Laboratory Blood - Arm, Right [address] [address] Urinalysis w/ Microscopic (12/16/2017 6:50 PM) Component Value Ref Range Color, UA Yellow Clarity, UA Clear Specific [place], UA 1.017 1.001 - 1.035 pH, UA [...] Specimen Performing Laboratory Urine - Urine, [place] [address] [address] Ferritin (12/16/2017 6:50 PM) Component Value Ref Range Ferritin 36 5 - 275 ng/mL Specimen Performing Laboratory Blood [address] [address] after 04/25/2017
[2018-04-26] MEDS ORDERED: HYDROCODONE/APAP 10/325 TAB ONE (22:38)
--- NOTE | 2018-04-27 00:15 | EDPHYS ---
Physician Documentation [facility] Name: Gloria Armenta Age: 82 yrs Sex: Female : 1935 Arrival Date: 04/26/2018 Time: 21:28 Bed 15 Private MD: Thang Montero ED Physician Ronny Arguelles HPI: 04/27 00:00 This 82 yrs old Female presents to ER via Wheelchair with complaints of pm1 Headache, Nausea. 00:00 The patient complains of pain to the forehead. The patient describes the headache as pm1 aching, constant. Onset: The symptoms/episode began/occurred today. Associated signs and symptoms: Pertinent positives: nausea, Pertinent negatives: neck stiffness, vision changes, vision loss, vomiting, weakness. Severity of symptoms: in the emergency department the pain is actually worse. Headache History: The patient has had previous headaches and this one is similar to previous episodes. The symptoms are alleviated by nothing. the symptoms are aggravated by nothing. The patient has experienced similar episodes in the past, chronically. The patient has not recently seen a physician, Reports she has not seen her pain management physician in some time. Historical: - Allergies: 04/26 21:46 Aspirin; aj 21:46 Cefaclor; aj 21:46 Celecoxib; aj 21:46 Cephalexin; aj 21:46 CEPHALOSPORINS; aj 21:46 Chlorpromazine; aj 21:46 chlorpromazine HCl; aj 21:46 esomeprazole mag; aj 21:46 Ketorolac; aj 21:46 ketorolac tromethamine; aj 21:46 Meperidine; aj 21:46 Morphine; aj 21:46 prochlorperazine Edisylate; aj 21:46 Prochlorperazine Maleate; aj 21:46 Rofecoxib; aj 21:46 Sulfa (Sulfonamide Antibiotics); aj 21:46 SUMATRIPTAN; aj 21:46 Sumatriptan Succinate; aj - PMHx: 21:46 Chronic headaches; Chronic pain; Hypertension; aj - Immunization history:: Adult Immunizations up to date. - Social history:: Smoking status: Patient/guardian denies using tobacco. - Ebola Screening: : Patient negative for fever greater than or equal to 101.5 degrees Fahrenheit, and additional compatible Ebola Virus Disease symptoms Patient denies exposure to infectious person Patient denies travel to an Ebola-affected area in the 21 days before illness onset No symptoms or risks identified at this time. ROS: 04/27 00:00 Constitutional: Negative for fever, chills, and weight loss, Eyes: Negative for injury, pm1 pain, redness, and discharge, ENT: Negative for injury, pain, and discharge, Neck: Negative for injury, pain, and swelling, Cardiovascular: Negative for chest pain, palpitations, and edema, Respiratory: Negative for shortness of breath, cough, wheezing, and pleuritic chest pain, Back: Negative for injury and pain, : Negative for injury, bleeding, discharge, and swelling, MS/Extremity: Negative for injury and deformity, Skin: Negative for injury, rash, and discoloration. Abdomen/GI: Positive for nausea, Negative for abdominal pain, vomiting, diarrhea. Neuro: Positive for headache, Negative for numbness, tingling, weakness. Exam: 00:00 Constitutional: This is a well developed, well nourished patient who is awake, alert, pm1 and in no acute distress. Head/Face: Normocephalic, atraumatic. Eyes: Pupils equal round and reactive to light, extra-ocular motions intact. Lids and lashes normal. Conjunctiva and sclera are non-icteric and not injected. Cornea within normal limits. Periorbital areas with no swelling, redness, or edema. ENT: Nares patent. No nasal discharge, no septal abnormalities noted. Tympanic membranes are normal and external auditory canals are clear. Oropharynx with no redness, swelling, or masses, exudates, or evidence of obstruction, uvula midline. Mucous membranes moist. Neck: Trachea midline, no thyromegaly or masses palpated, and no cervical lymphadenopathy. Supple, full range of motion without nuchal rigidity, or vertebral point tenderness. No Meningismus. Chest/axilla: Normal chest wall appearance and motion. Nontender with no deformity. No lesions are appreciated. Cardiovascular: Regular rate and rhythm with a normal S1 and S2. No gallops, murmurs, or rubs. Normal PMI, no JVD. No pulse deficits. Respiratory: Lungs have equal breath sounds bilaterally, clear to auscultation and percussion. No rales, rhonchi or wheezes noted. No increased work of breathing, no retractions or nasal flaring. Abdomen/GI: Soft, non-tender, with normal bowel sounds. No distension or tympany. No guarding or rebound. No evidence of tenderness throughout. 00:00 Skin: Warm, dry with normal turgor. Normal color with no rashes, no lesions, and no evidence of cellulitis. MS/ Extremity: Pulses equal, no cyanosis. Neurovascular intact. Full, normal range of motion. 00:00 Back: kyphosis, that is marked. 00:00 Neuro: Orientation: is normal, Cranial nerves: CN II- XII are normal as tested, Cerebellar function: normal finger to nose testing, Motor: moves all fours, strength is 5/5 in all extremities, Gait: is steady, at a normal pace, without difficulty. Vital Signs: 04/26 21:46 BP 172 / 82; Pulse 78; Resp 15; Temp 97.6; Pulse Ox 98% on R/A; Weight 58.97 kg; Height aj 5 ft. 7 in. (170.18 cm); Pain 7/10; 23:22 BP 163 / 77; Pulse 78; Resp 18; Pulse Ox 100% ; Pain 3/10; mg2 21:46 Body Mass Index 20.36 (58.97 kg, 170.18 cm) aj MDM: 22:32 Patient medically screened. pm1 04/27 00:00 ED course: Patient's headache resolved with medication given in the ER. Patient wants pm1 to go home now. 00:14 Data reviewed: vital signs. Data interpreted: Pulse oximetry: on room air is 100 %. pm1 Interpretation: normal. Counseling: I had a detailed discussion with the patient and/or guardian regarding: the historical points, exam findings, and any diagnostic results supporting the discharge/admit diagnosis, the need for outpatient follow up, to return to the emergency department if symptoms worsen or persist or if there are any questions or concerns that arise at home. Administered Medications: 04/26 22:38 Drug: [place] 10 mg-325 mg 1 tabs Route: PO; mg2 04/27 00:30 Follow up: Response: No adverse reaction; Pain is decreased mg2 Disposition: 04/27/18 00:15 Discharged to Home. Impression: Headache. - Condition is Stable. - Discharge Instructions: General Headache Without Cause. - Medication Reconciliation Form, Thank You Letter, Prescription Opioid Use form. - Follow up: Emergency Department; When: As needed; Reason: Worsening of condition. Follow up: Private Physician; When: 2 - 3 days; Reason: Recheck today's complaints, Continuance of care, Re-evaluation by your physician. - Problem is new. - Symptoms have improved. Addendum: 04/29/2018 07:13 Co-signature as Attending Physician, Ronny Arguelles MD I agree with the assessment and c chen plan of care. Signatures: Yvonne Martino RN RN Ronny Rosas MD MD cha Marinas, Patrick, OB TECH OB TECH pm1 Viktor Saba RN RN mg2 Corrections: (The following items were deleted from the chart) 04/27 00:31 00:15 04/27/2018 00:15 Discharged to Home. Impression: Headache. Condition is Stable. mg2 Forms are Medication Reconciliation Form, Thank You Letter, Antibiotic Education, Prescription Opioid Use. Follow up: Emergency Department; When: As needed; Reason: Worsening of condition. Follow up: Private Physician; When: 2 - 3 days; Reason: Recheck today's complaints, Continuance of care, Re-evaluation by your physician. Problem is new. Symptoms have improved. pm1
--- NOTE | 2018-04-27 00:15 | ER ---
Nurse's Notes [facility] Name: Gloria Armenta Age: 82 yrs Sex: Female : 1935 Arrival Date: 04/26/2018 Time: 21:28 Bed 15 Private MD: Thang Montero Diagnosis: Headache Presentation: 04/26 21:45 Presenting complaint: Patient states: Headache with nausea that started today. aj Transition of care: patient was not received from another setting of care. Onset of symptoms was April 26, 2018. Risk Assessment: Do you want to hurt yourself or someone else? Patient reports no desire to harm self or others. Initial Sepsis Screen: Does the patient meet any 2 criteria?. Care prior to arrival: None. 21:45 Method Of Arrival: Wheelchair aj 21:45 Acuity: AURELIO 4 aj 22:33 Initial Sepsis Screen: Does the patient have a suspected source of infection? No. mg2 Patient's initial sepsis screen is negative. Triage Assessment: 21:46 Headache History: The patient has had previous headaches and this one is similar to aj previous episodes. General: Appears in no apparent distress. comfortable, Behavior is calm, cooperative, agitated. Pain: Complains of pain in face and scalp Pain currently is 7 out of 10 on a pain scale. Also complains of nausea. Neuro: Level of Consciousness is awake, alert, obeys commands, Oriented to person, place, time, situation, Appropriate for age Reports headache. Respiratory: Airway is patent Respiratory effort is even, unlabored, Respiratory pattern is regular, symmetrical. GI: Reports nausea. Derm: Skin is intact, is healthy with good turgor, Skin is pink, warm \T\ dry. normal. Historical: - Allergies: 21:46 Aspirin; aj 21:46 Cefaclor; aj 21:46 Celecoxib; aj 21:46 Cephalexin; aj 21:46 CEPHALOSPORINS; aj 21:46 Chlorpromazine; aj 21:46 chlorpromazine HCl; aj 21:46 esomeprazole mag; aj 21:46 Ketorolac; aj 21:46 ketorolac tromethamine; aj 21:46 Meperidine; aj 21:46 Morphine; aj 21:46 prochlorperazine Edisylate; aj 21:46 Prochlorperazine Maleate; aj 21:46 Rofecoxib; aj 21:46 Sulfa (Sulfonamide Antibiotics); aj 21:46 SUMATRIPTAN; aj 21:46 Sumatriptan Succinate; aj - PMHx: 21:46 Chronic headaches; Chronic pain; Hypertension; aj - Immunization history:: Adult Immunizations up to date. - Social history:: Smoking status: Patient/guardian denies using tobacco. - Ebola Screening: : Patient negative for fever greater than or equal to 101.5 degrees Fahrenheit, and additional compatible Ebola Virus Disease symptoms Patient denies exposure to infectious person Patient denies travel to an Ebola-affected area in the 21 days before illness onset No symptoms or risks identified at this time. Screenin:27 Abuse screen: Denies threats or abuse. Denies injuries from another. Nutritional mg2 screening: No deficits noted. Tuberculosis screening: No symptoms or risk factors identified. Fall Risk None identified. Assessment: 22:31 General: Appears in no apparent distress. comfortable, Behavior is calm, cooperative. mg2 Pain: Complains of pain in head Pain does not radiate. Pain currently is 7 out of 10 on a pain scale. Quality of pain is described as aching, Pain began gradually, Is intermittent, Alleviated by medications, Also complains of nausea. Neuro: Level of Consciousness is awake, alert, obeys commands, Oriented to person, place, time, situation. Cardiovascular: Capillary refill < 3 seconds Patient's skin is warm and dry. Respiratory: Airway is patent Respiratory effort is even, unlabored, Respiratory pattern is regular, symmetrical. GI: No signs and/or symptoms were reported involving the gastrointestinal system. : No signs and/or symptoms were reported regarding the genitourinary system. EENT: No signs and/or symptoms were reported regarding the EENT system. Derm: Skin is intact, Skin is pink, warm \T\ dry. normal. Musculoskeletal: Circulation, motion, and sensation intact. Vital Signs: 21:46 BP 172 / 82; Pulse 78; Resp 15; Temp 97.6; Pulse Ox 98% on R/A; Weight 58.97 kg; Height aj 5 ft. 7 in. (170.18 cm); Pain 7/10; 23:22 BP 163 / 77; Pulse 78; Resp 18; Pulse Ox 100% ; Pain 3/10; mg2 21:46 Body Mass Index 20.36 (58.97 kg, 170.18 cm) ED Course: 21:28 Patient arrived in ED. es 21:28 Thang Montero DO is Private Physician. es 21:45 Triage completed. aj 21:46 Arm band placed on left wrist. Patient placed in waiting room, Patient notified of wait aj time. 22:26 Viktor Saba, NAT is Primary Nurse. mg2 22:31 Brian Alas NP is PHCP. pm1 22:31 Ronny Arguelles MD is Attending Physician. pm1 22:33 Patient has correct armband on for positive identification. Placed in gown. Bed in low mg2 position. Call light in reach. Side rails up X 1. 04/27 00:31 No provider procedures requiring assistance completed. Patient did not have IV access mg2 during this emergency room visit. Administered Medications: 04/26 22:38 Drug: [place] 10 mg-325 mg 1 tabs Route: PO; mg2 04/27 00:30 Follow up: Response: No adverse reaction; Pain is decreased mg2 Outcome: 00:15 Discharge ordered by . pm1 00:31 Discharged to home ambulatory. mg2 00:31 Condition: stable 00:31 Discharge instructions given to patient, Instructed on discharge instructions, follow up and referral plans. Demonstrated understanding of instructions, follow-up care. 00:31 Patient left the ED. mg2 Signatures: Yvonne Martino RN RN Erica Bautista Patrick, SARAH [employer] CHARGER pm1 Viktor Saba RN RN mg2
[2018-04-27 00:48] VITALS: TEMP 97.6
[2018-04-27 00:49] VITALS: BP 163/77; O2SAT 100
== END 2018-04-27 00:31 | disposition home or self-care (01) ==
LOC: ER 21:25
DX: R51 Headache (principal); R11.0 Nausea; Z88.6 Allergy status to analgesic agent; Z88.3 Allergy status to other anti-infective agents; Z88.8 Allergy status to other drugs, medicaments and biological substances
CPT/HCPCS: 99283

== ENCOUNTER 2018-04-29 06:04 | Emergency (ER) | payer OTHER, SELFPAY ==
--- OUTSIDE RECORDS SUMMARY | 2018-04-29 06:06 | XMS REPORT | Clinical Summary ---
:1935 Author Organization [facility] Address [address] [place] [address] Phone Care Team Providers Name Role Phone [...] type;Hypothyroidism, unspecified type;Acute cystitis without hematuria after 04/28/2017 Social History Tobacco Use Types Packs/Day Years Used Date Never Smoker Smokeless Tobacco: Never Used Sex Assigned at Date Recorded Not on file Last Filed Vital Signs Vital Sign Reading Time Taken Blood Pressure 157/77 12/20/2017 11:34 AM [facility] [employer] Pulse 76 12/20/2017 11:34 AM [employer] Temperature 36.5 C (97.7 F) 12/20/2017 11:34 AM [employer] Respiratory Rate 18 12/20/2017 11:34 AM [employer] Oxygen Saturation 98% 12/20/2017 11:34 AM [employer] Inhaled Oxygen Concentration - - Weight 54 kg (119 lb) 12/20/2017 5:00 AM [employer] Height 157.5 cm (5' 2") 12/16/2017 5:25 PM [employer] Body Mass Index 21.77 12/20/2017 5:00 AM [employer] Plan of Treatment Not on file Results RHYTHM STRIP - SCAN (12/21/2017 2:41 PM)Magnesium (12/19/2017 7:31 AM)Only the most recent of2 resultswithin the time period is included. Component Value Ref Range Magnesium 2.2Comment: Specimen slightly hemolyzed 1.6 - 2.6 mg/dL Specimen Performing Laboratory Blood - Line, Venous [facility] [address] [address] Basic Metabolic Panel (12/19/2017 7:31 AM)Only the [...] Performing Laboratory Blood - Line, Venous [address] [address] CBC with platelet count + automated diff [...] Performing Laboratory Blood - Line, Venous [address] [address] CBC with platelet count + automated diff (12/19/2017 6:58 AM)Only the most recent of4 resultswithin the time period is included. Specimen Performing Laboratory Blood Narrative The following orders were created for panel order CBC with platelet count + automated diff. Procedure Abnormality Status --------- ------ CBC with platelet count ...[[id number]]AbnormalFinal result Please view results for these tests [...] to 12/17/2017 DATE OF REPORT 12/16/17 ACC: [id number] Start time: 22:43 Stop time: 06:45 ICD-10: G93.40 CPT Code: 02056 HISTORY: 82 yo F with history of chronic pain, chronic Lozano, osteoporosis, HTN, who was transferred from [facility] for AMS and seizures. UDS + [...] External Ris In - 12/17/2017 4:19 PM [employer] Addendum Begins Addendum: Start time: 0645 Stop [...] to 12/17/2017 DATE OF REPORT 12/16/17 ACC: [id number] Start time: 22:43 Stop time: 06:45 ICD-10: G93.40 CPT Code: 71509 HISTORY: 82 yo F with history of [...] TEST: 12/16/17 DATE OF REPORT 12/16/17 ACC: [id number] Start time: 22:22 Stop time: 22:43 ICD-10: G93.40 CPT Code: 01185 HISTORY: 82 yo F with history of [...] Galeas MD Epilepsy Fellow Nabila Sanchez M.D., [facility] Professor of Neurology Director, [facility] Epilepsy [place], [facility] Neurophysiology Lab Procedure Note Interface, External Ris In - 12/16/2017 11:06 PM [employer] DATE OF TEST: 12/16/17 DATE OF REPORT 12/16/17 ACC: [id number] Start time: 22:22 Stop time: 22:43 ICD-10: G93.40 CPT Code: 80103 HISTORY: 82 yo F with history of chronic pain, chronic Lozano, osteoporosis, HTN, who was transferred from [facility] for AMS and seizures. UDS + [...] Galeas MD Epilepsy Fellow Nabila Sanchez M.D., [facility] Professor of Neurology Director, [facility] Epilepsy [place], [facility] Neurophysiology Lab chest 1 view portable [...] MD Report Verified Date/Time:12/16/2017 21:41:51 Reading Location: [address] Reading Room Procedure Note Interface, External Ris In - 12/16/2017 9:44 PM [facility] FINAL REPORT INDICATION: concern for PNA COMPARISON: None TECHNIQUE: Single frontal view of the chest. FINDINGS: Limited by severe scoliosis and contractures. Lungs and pleura: Clear lungs. No effusion. Heart and mediastinum: Normal heart size. Unremarkable mediastinal contours. Osseous structures: No acute abnormality. Other: None. IMPRESSION: No acute intrathoracic abnormality. Signed: JR Lamb Robert MD Report Verified Date/Time: 12/16/2017 21:41:51 Reading Location: [address] Reading Room Urine culture (12/16/2017 8:45 PM) Component Value Ref Range Result Result >100,000 col/mL Citrobacter braakii (A) Specimen Performing Laboratory Urine - Urine, [place] [address] [address] Organism Antibiotic Method Susceptibility Citrobacter braakii Amikacin [...] >=7.0 ng/mL Specimen Performing Laboratory Blood [address] [address] TSH/Free T4 If Indicated (12/16/2017 6:50 PM) Component Value Ref Range TSH 3.15 0.35 - 4.94 uIU/mL Specimen Performing Laboratory Blood [address] [address] Iron, TIBC, % sat. (without ferritin) (12/16/2017 6:50 PM) Component Value Ref Range Iron 24 (L) 40 - 160 ug/dL TIBC 309 250 - 450 ug/dL Iron % Saturation 8 (L) 20 - 55 % Specimen Performing Laboratory [address] [address] Vitamin D, 25-Hydroxy (12/16/2017 6:50 PM) Component Value Ref Range Vitamin D 25-Hydroxy 8.2 6.6 - 49.9 ng/mL Specimen Performing Laboratory Blood [address] [address] Narrative Effective 09/05/2017: Reference Range Change New: 6.6-49.9 ng/mL Previous: 13.0-47.8 ng/mL Recommended Vitamin D Target Range: 30.0-40.0 ng/mL Blood culture (12/16/2017 6:50 PM) Component Value Ref Range Result No growth in 5 days Specimen Performing Laboratory Blood - Arm, Right [address] [address] Urinalysis w/ Microscopic (12/16/2017 6:50 PM) Component Value Ref Range Color, UA Yellow Clarity, UA Clear Specific [place], UA 1.017 1.001 - 1.035 pH, UA [...] Performing Laboratory Urine - Urine, [place] [address] [address] Ferritin (12/16/2017 6:50 PM) Component Value Ref Range Ferritin 36 5 - 275 ng/mL Specimen Performing Laboratory Blood [address] [address] after 04/28/2017
--- OUTSIDE RECORDS SUMMARY | 2018-04-29 06:07 | XMS REPORT ---
:1935 [facility] Address [address] [place] [address] [address] [place] [address] Care Team Providers Name Role Phone NICHOLE PEREZ Unavailable Unavailable Problems This patient has no known problems. Allergies, Adverse Reactions, Alerts This patient has no known allergies or adverse reactions. Medications This patient has no known medications. Results Test Description Test Time Test Comments Text Results Atomic Results Result Comments BLOOD CULTURE 2017-12-22 05:01:00 Test Item Value Reference Range Comments CULTURE (BEAKER) (test itnx=7477) No growth in 5 days [id number] 11:31:00 Test Item Value Reference Range Comments MAGNESIUM (BEAKER) (test 2.2 mg/dL 1.6-2.6 Specimen slightly hemolyzed qijk=507) BASIC METABOLIC [id number] 11:31:00 Test Item Value Reference Range Comments SODIUM (BEAKER) (test 139 meq/L 136-145 wmny=831) POTASSIUM (BEAKER) (test 4.0 meq/L 3.5-5.1 Specimen slightly owct=406) hemolyzed CHLORIDE (BEAKER) (test 104 meq/L 98-107 hlil=367) CO2 (BEAKER) (test 27 meq/L 22-29 ekoq=219) BLOOD UREA NITROGEN 7 mg/dL 7-21 (BEAKER) (test jesc=977) CREATININE (BEAKER) (test 0.60 mg/dL 0.57-1.25 Specimen slightly yodj=152) hemolyzed GLUCOSE RANDOM (BEAKER) 113 mg/dL 70-105 (test jflr=300) CALCIUM (BEAKER) (test 8.3 mg/dL 8.4-10.2 wqry=046) EGFR (BEAKER) (test 95 mL/min/1.73 sq m ESTIMATED GFR IS NOT webi=5515) ACCURATE CREATININE CLEARANCE IN PREDICTING GLOMERULAR FILTRATION RATE. ESTIMATED GFR IS NOT APPLICABLE FOR DIALYSIS PATIENTS. URINE [id number] 09:10:00 Test Item Value Reference Range Comments CULTURE (BEAKER) (test kmpf=4071) Amikacin (test code=1) Aztreonam (test code=32) Cefepime (test code=51) Cefoxitin (test code=68) Ceftazidime (test code=27) Ceftriaxone (test code=52) Ertapenem (test code=38) Gentamicin (test code=18) Levofloxacin (test code=22) Meropenem (test code=34) Nitrofurantoin (test code=23) Piperacillin + Tazobactam (test code=29) Tetracycline (test code=2) Tobramycin (test code=25) Trimethoprim + Sulfamethoxazole (test code=47) CULTURE (BEAKER) (test xvas=3909) >100,000 col/mL Citrobacter braakii CBC W/PLT COUNT & AUTO [id number] 07:05:00 Test Item Value Reference Range Comments WHITE BLOOD CELL COUNT (BEAKER) (test sarg=090) 7.5 K/ L 3.5-10.5 RED BLOOD CELL COUNT (BEAKER) (test zjgk=355) 4.30 M/ L 3.93-5.22 HEMOGLOBIN (BEAKER) (test ygef=588) 10.1 GM/DL 11.2-15.7 HEMATOCRIT (BEAKER) (test gbml=209) 32.6 % 34.1-44.9 MEAN CORPUSCULAR VOLUME (BEAKER) (test aqhf=806) 75.8 fL 79.4-94.8 MEAN CORPUSCULAR HEMOGLOBIN (BEAKER) (test 23.5 pg 25.6-32.2 nder=255) MEAN CORPUSCULAR HEMOGLOBIN CONC (BEAKER) (test 31.0 GM/DL 32.2-35.5 majj=608) RED CELL DISTRIBUTION WIDTH (BEAKER) (test 14.1 % 11.7-14.4 nuem=702) PLATELET COUNT (BEAKER) (test efso=387) 289 K/CU MM 150-450 MEAN PLATELET VOLUME (BEAKER) (test wajs=829) 9.1 fL 9.4-12.3 NUCLEATED RED BLOOD CELLS (BEAKER) (test 0 /100 WBC 0-0 ildg=102) NEUTROPHILS RELATIVE PERCENT (BEAKER) (test 73 % injj=561) LYMPHOCYTES RELATIVE PERCENT (BEAKER) (test 15 % qdct=469) MONOCYTES RELATIVE PERCENT (BEAKER) (test 9 % hwrj=321) EOSINOPHILS RELATIVE PERCENT (BEAKER) (test 2 % hkut=395) BASOPHILS RELATIVE PERCENT (BEAKER) (test 0 % hgil=478) NEUTROPHILS ABSOLUTE COUNT (BEAKER) (test 5.50 K/ L 1.56-6.13 kqki=570) LYMPHOCYTES ABSOLUTE COUNT (BEAKER) (test 1.12 K/ L 1.18-3.74 czwg=264) MONOCYTES ABSOLUTE COUNT (BEAKER) (test 0.67 K/ L 0.24-0.36 oevy=541) EOSINOPHILS ABSOLUTE COUNT (BEAKER) (test 0.16 K/ L 0.04-0.36 pdlc=680) BASOPHILS ABSOLUTE COUNT (BEAKER) (test 0.03 K/ L 0.01-0.08 iwrk=743) IMMATURE GRANULOCYTES-RELATIVE PERCENT (BEAKER) 0 % 0-1 (test djnm=5809) [id number] 08:15:00 Test Item Value Reference Range Comments MAGNESIUM (BEAKER) (test ymve=201) 1.7 mg/dL 1.6-2.6 CBC W/PLT COUNT & AUTO [id number] 04:24:00 Test Item Value Reference Range Comments WHITE BLOOD CELL COUNT (BEAKER) (test amcb=774) 6.7 K/ L 3.5-10.5 RED BLOOD CELL COUNT (BEAKER) (test ulzm=668) 3.69 M/ L 3.93-5.22 HEMOGLOBIN (BEAKER) (test pbxl=424) 8.6 GM/DL 11.2-15.7 HEMATOCRIT (BEAKER) (test glmq=926) 28.5 % 34.1-44.9 MEAN CORPUSCULAR VOLUME (BEAKER) (test dcwr=727) 77.2 fL 79.4-94.8 MEAN CORPUSCULAR HEMOGLOBIN (BEAKER) (test 23.3 pg 25.6-32.2 ounl=077) MEAN CORPUSCULAR HEMOGLOBIN CONC (BEAKER) (test 30.2 GM/DL 32.2-35.5 zexu=159) RED CELL DISTRIBUTION WIDTH (BEAKER) (test 13.7 % 11.7-14.4 snug=288) PLATELET COUNT (BEAKER) (test mlih=874) 249 K/CU MM 150-450 MEAN PLATELET VOLUME (BEAKER) (test ortn=532) 8.8 fL 9.4-12.3 NUCLEATED RED BLOOD CELLS (BEAKER) (test 0 /100 WBC 0-0 mvcw=697) NEUTROPHILS RELATIVE PERCENT (BEAKER) (test 64 % spdk=170) LYMPHOCYTES RELATIVE PERCENT (BEAKER) (test 21 % bfse=442) MONOCYTES RELATIVE PERCENT (BEAKER) (test 12 % twdp=119) EOSINOPHILS RELATIVE PERCENT (BEAKER) (test 3 % tfsb=046) BASOPHILS RELATIVE PERCENT (BEAKER) (test 0 % adqi=465) NEUTROPHILS ABSOLUTE COUNT (BEAKER) (test 4.23 K/ L 1.56-6.13 dgsk=319) LYMPHOCYTES ABSOLUTE COUNT (BEAKER) (test 1.39 K/ L 1.18-3.74 pwqc=887) MONOCYTES ABSOLUTE COUNT (BEAKER) (test 0.80 K/ L 0.24-0.36 hssq=044) EOSINOPHILS ABSOLUTE COUNT (BEAKER) (test 0.20 K/ L 0.04-0.36 lhua=998) BASOPHILS ABSOLUTE COUNT (BEAKER) (test 0.02 K/ L 0.01-0.08 mhmx=468) IMMATURE GRANULOCYTES-RELATIVE PERCENT (BEAKER) 0 % 0-1 (test atlt=8745) BASIC METABOLIC [id number] 04:19:00 Test Item Value Reference Range Comments SODIUM (BEAKER) (test 139 meq/L 136-145 bpap=935) POTASSIUM (BEAKER) (test 3.1 meq/L 3.5-5.1 bawd=869) CHLORIDE (BEAKER) (test 103 meq/L 98-107 cujv=435) CO2 (BEAKER) (test 29 meq/L 22-29 zdbm=923) BLOOD UREA NITROGEN 12 mg/dL 7-21 (BEAKER) (test ffgg=822) CREATININE (BEAKER) (test 0.65 mg/dL 0.57-1.25 klyb=588) GLUCOSE RANDOM (BEAKER) 91 mg/dL 70-105 (test xbwu=004) CALCIUM (BEAKER) (test 8.1 mg/dL 8.4-10.2 bcrq=455) EGFR (BEAKER) (test 87 mL/min/1.73 sq m ESTIMATED GFR IS NOT kbif=6801) ACCURATE CREATININE CLEARANCE IN PREDICTING GLOMERULAR FILTRATION RATE. ESTIMATED GFR IS NOT APPLICABLE FOR DIALYSIS PATIENTS. EEG MONITORING WITH VIDEO RECORDING EACH 24 [id number] 16:19:00Addendum BeginsAddendum:Start time: 0645Stop time: 1613 There [...] 12/16/2017 to DATE OF REPORT 12/16/17 ACC: [id number] Start time: 22: 43 Stop time: 06:45 ICD-10: G93.40 CPT Code: 62507 HISTORY: 82 yo F with history of [...] MD, MS Epilepsy/Neurophysiology Attending [facility] METABOLIC [id number] 04:38:00 Test Item Value Reference Range Comments SODIUM (BEAKER) (test 142 meq/L 136-145 zcfw=026) POTASSIUM (BEAKER) (test 3.0 meq/L 3.5-5.1 bpwb=235) CHLORIDE (BEAKER) (test 104 meq/L 98-107 jeon=962) CO2 (BEAKER) (test 31 meq/L 22-29 iyob=802) BLOOD UREA NITROGEN 13 mg/dL 7-21 (BEAKER) (test wqpu=624) CREATININE (BEAKER) (test 0.64 mg/dL 0.57-1.25 fbjs=176) GLUCOSE RANDOM (BEAKER) 122 mg/dL 70-105 (test vvkh=784) CALCIUM (BEAKER) (test 8.1 mg/dL 8.4-10.2 djqh=828) EGFR (BEAKER) (test 89 mL/min/1.73 sq m ESTIMATED GFR IS NOT ohxs=4555) ACCURATE CREATININE CLEARANCE IN PREDICTING GLOMERULAR FILTRATION RATE. ESTIMATED GFR IS NOT APPLICABLE FOR DIALYSIS PATIENTS. CBC W/PLT COUNT & AUTO [id number] 04:03:00 Test Item Value Reference Range Comments WHITE BLOOD CELL COUNT (BEAKER) (test vdli=091) 8.6 K/ L 3.5-10.5 RED BLOOD CELL COUNT (BEAKER) (test rtbn=923) 3.94 M/ L 3.93-5.22 HEMOGLOBIN (BEAKER) (test bjun=129) 9.1 GM/DL 11.2-15.7 HEMATOCRIT (BEAKER) (test pfae=024) 30.3 % 34.1-44.9 MEAN CORPUSCULAR VOLUME (BEAKER) (test ejpa=134) 76.9 fL 79.4-94.8 MEAN CORPUSCULAR HEMOGLOBIN (BEAKER) (test 23.1 pg 25.6-32.2 fmbq=283) MEAN CORPUSCULAR HEMOGLOBIN CONC (BEAKER) (test 30.0 GM/DL 32.2-35.5 dmng=013) RED CELL DISTRIBUTION WIDTH (BEAKER) (test 13.4 % 11.7-14.4 tzsw=645) PLATELET COUNT (BEAKER) (test phry=742) 287 K/CU MM 150-450 MEAN PLATELET VOLUME (BEAKER) (test lcww=437) 8.7 fL 9.4-12.3 NUCLEATED RED BLOOD CELLS (BEAKER) (test 0 /100 WBC 0-0 jkkx=029) NEUTROPHILS RELATIVE PERCENT (BEAKER) (test 74 % thdb=004) LYMPHOCYTES RELATIVE PERCENT (BEAKER) (test 16 % clwm=973) MONOCYTES RELATIVE PERCENT (BEAKER) (test 9 % bokh=436) EOSINOPHILS RELATIVE PERCENT (BEAKER) (test 1 % dhnc=858) BASOPHILS RELATIVE PERCENT (BEAKER) (test 0 % sqme=718) NEUTROPHILS ABSOLUTE COUNT (BEAKER) (test 6.35 K/ L 1.56-6.13 rmds=452) LYMPHOCYTES ABSOLUTE COUNT (BEAKER) (test 1.35 K/ L 1.18-3.74 vpwn=354) MONOCYTES ABSOLUTE COUNT (BEAKER) (test 0.80 K/ L 0.24-0.36 jjlx=748) EOSINOPHILS ABSOLUTE COUNT (BEAKER) (test 0.08 K/ L 0.04-0.36 txqx=735) BASOPHILS ABSOLUTE COUNT (BEAKER) (test 0.03 K/ L 0.01-0.08 qzbh=535) IMMATURE GRANULOCYTES-RELATIVE PERCENT (BEAKER) 0 % 0-1 (test shrn=2238) EEG AWAKE AND [id number] 23:06:00For STAT EEG- after 5 PM weekdays, weekends and holidays, page the on-call member service specialist Reason for exam:->seizure, AMSDATE OF TEST: 1/21/18DATE OF REPORT 12/16/17ACC: [id number]: [id number] time : 22:22Stop time: 22:43ICD-10: G93.40CPT Code: 42136 HISTORY: 82 yo F with history of [...] Fellow Nabila Sanchez M.D., FACNSProfessor of NeurologyDirector, [facility] EpilepsyWood [facility]er[facility] Neuro[facility] Lab Electronically signed by: NABILA Foreman 12/16/2017 11:06 PMRAD, CHEST, 1 VIEW, NON [id number] 21:41: 00Reason for exam:->concern for PNAShould this [...] MDReport Verified Date/Time: 12/16/2017 21:41:51 Reading Location: [address] Reading Room [id number] 19:57:00 Test Item Value Reference Range Comments FERRITIN (BEAKER) (test nhdq=377) 36 ng/mL 5-275 VITAMIN D, [id number] 19:57:00 Test Item Value Reference Range Comments VITAMIN D 25-OH (BEAKER) (test nkof=3662) 8.2 ng/mL 6.6-49.9 Effective 09/05/2017: Reference Range ChangeNew: 6.6-49.9 ng/mL Previous: 13.0 -47.8 ng/mLRecommended Vitamin D Target Range: 30.0-40.0 ng/mLTSH/FREE T4 IF [id number] 19:57:00 Test Item Value Reference Range Comments THYROID STIMULATING HORMONE (BEAKER) (test 3.15 uIU/mL 0.35-4.94 lbpy=231) VITAMIN B12 AND [id number] 19:57:00 Test Item Value Reference Range Comments VITAMIN B12 (BEAKER) (test ofam=017) 376 pg/mL 213-816 FOLATE (BEAKER) (test aveu=378) 15.8 ng/mL >=7.0 URINALYSIS W/ [id number] 19:28:00 Test Item Value Reference Range Comments COLOR (BEAKER) (test bclc=562) Yellow CLARITY (BEAKER) (test ajyu=539) Clear SPECIFIC GRAVITY UA (BEAKER) (test ryic=639) 1.017 1.001-1.035 PH UA (BEAKER) (test tyfo=724) 5.5 5.0-8.0 PROTEIN UA (BEAKER) (test fxvm=089) 50 mg/dL Negative GLUCOSE UA (BEAKER) (test hjeq=343) Negative Negative KETONES UA (BEAKER) (test eadd=652) 40 mg/dL Negative BILIRUBIN UA (BEAKER) (test tazw=142) Negative Negative BLOOD UA (BEAKER) (test vaxk=144) Negative Negative NITRITE UA (BEAKER) (test pxui=270) Negative Negative LEUKOCYTE ESTERASE UA (BEAKER) (test spns=295) Moderate Negative UROBILINOGEN UA (BEAKER) (test ppgy=606) 0.2 mg/dL 0.2-1.0 RBC UA (BEAKER) (test lrdd=342) 1 /HPF WBC UA (BEAKER) (test hedr=880) 55 /HPF BACTERIA (BEAKER) (test suha=066) Occasional MUCUS (BEAKER) (test qwdm=4338) Many HYALINE CASTS (BEAKER) (test uotv=224) 10 /LPF SOURCE(BEAKER) (test cphc=7286) Urine, [place] IRON, TIBC, % SAT. (WITHOUT FERRITIN)2017-12-16 19:21:00 Test Item Value Reference Range Comments IRON (BEAKER) (test ryih=156) 24 ug/dL 40-160 TOTAL IRON BINDING CAPACITY (BEAKER) (test 309 ug/dL 250-450 dxnx=593) IRON % SATURATION (2) (BEAKER) (test noly=4308) 8 % 20-55 BASIC METABOLIC [id number] 19:20:00 Test Item Value Reference Range Comments SODIUM (BEAKER) (test 141 meq/L 136-145 gfhi=015) POTASSIUM (BEAKER) (test 4.0 meq/L 3.5-5.1 Specimen moderately ymds=481) hemolyzed CHLORIDE (BEAKER) (test 102 meq/L 98-107 mnvk=022) CO2 (BEAKER) (test 30 meq/L 22-29 evky=470) BLOOD UREA NITROGEN 12 mg/dL 7-21 (BEAKER) (test cmop=812) CREATININE (BEAKER) (test 0.66 mg/dL 0.57-1.25 Specimen moderately cakq=137) hemolyzed GLUCOSE RANDOM (BEAKER) 102 mg/dL 70-105 (test yamz=038) CALCIUM (BEAKER) (test 8.3 mg/dL 8.4-10.2 rbnb=062) EGFR (BEAKER) (test 86 mL/min/1.73 sq m ESTIMATED GFR IS NOT dpnw=6388) ACCURATE CREATININE CLEARANCE IN PREDICTING GLOMERULAR FILTRATION RATE. ESTIMATED GFR IS NOT APPLICABLE FOR DIALYSIS PATIENTS. CBC W/PLT COUNT & AUTO [id number] 19:06:00 Test Item Value Reference Range Comments WHITE BLOOD CELL COUNT (BEAKER) (test dwjk=808) 8.2 K/ L 3.5-10.5 RED BLOOD CELL COUNT (BEAKER) (test xotn=873) 4.05 M/ L 3.93-5.22 HEMOGLOBIN (BEAKER) (test vrol=587) 9.4 GM/DL 11.2-15.7 HEMATOCRIT (BEAKER) (test negt=951) 30.9 % 34.1-44.9 MEAN CORPUSCULAR VOLUME (BEAKER) (test gwxr=538) 76.3 fL 79.4-94.8 MEAN CORPUSCULAR HEMOGLOBIN (BEAKER) (test 23.2 pg 25.6-32.2 vikp=560) MEAN CORPUSCULAR HEMOGLOBIN CONC (BEAKER) (test 30.4 GM/DL 32.2-35.5 eyuh=183) RED CELL DISTRIBUTION WIDTH (BEAKER) (test 13.6 % 11.7-14.4 duxn=878) PLATELET COUNT (BEAKER) (test mdmx=591) 301 K/CU MM 150-450 MEAN PLATELET VOLUME (BEAKER) (test xwvp=631) 8.7 fL 9.4-12.3 NUCLEATED RED BLOOD CELLS (BEAKER) (test 0 /100 WBC 0-0 rxux=259) NEUTROPHILS RELATIVE PERCENT (BEAKER) (test 78 % vlig=919) LYMPHOCYTES RELATIVE PERCENT (BEAKER) (test 13 % pylr=239) MONOCYTES RELATIVE PERCENT (BEAKER) (test 9 % yhhg=385) EOSINOPHILS RELATIVE PERCENT (BEAKER) (test 1 % nlxo=987) BASOPHILS RELATIVE PERCENT (BEAKER) (test 0 % qmcg=589) NEUTROPHILS ABSOLUTE COUNT (BEAKER) (test 6.35 K/ L 1.56-6.13 niuu=012) LYMPHOCYTES ABSOLUTE COUNT (BEAKER) (test 1.06 K/ L 1.18-3.74 mhuz=013) MONOCYTES ABSOLUTE COUNT (BEAKER) (test 0.70 K/ L 0.24-0.36 jsdu=228) EOSINOPHILS ABSOLUTE COUNT (BEAKER) (test 0.04 K/ L 0.04-0.36 eprl=959) BASOPHILS ABSOLUTE COUNT (BEAKER) (test 0.03 K/ L 0.01-0.08 eqrj=035) IMMATURE GRANULOCYTES-RELATIVE PERCENT (BEAKER) 0 % 0-1 (test bian=3864)
--- NOTE | 2018-04-29 06:30 | ER ---
Nurse's Notes [facility] Name: Gloria Armenta Age: 82 yrs Sex: Female : 1935 Arrival Date: 04/29/2018 Time: 06:07 Bed 15 Private MD: Thang Montero Diagnosis: Headache;Glossitis Presentation: 04/29 06:16 Presenting complaint: Patient states: "I have a migraine headache and abdominal pain. ao Patient report pain started last night with no relief of her Tylenol #3. Transition of care: patient was not received from another setting of care. Onset of symptoms was April 28, 2018 at 22:30. Risk Assessment: Do you want to hurt yourself or someone else? Patient reports no desire to harm self or others. Initial Sepsis Screen: Does the patient meet any 2 criteria? No. Patient's initial sepsis screen is negative. Does the patient have a suspected source of infection? No. Patient's initial sepsis screen is negative. Care prior to arrival: Medication(s) given: Tylenol #3. 06:16 Method Of Arrival: Ambulatory ao 06:16 Acuity: AURELIO 4 ao Triage Assessment: 06:24 Headache History: The patient has had previous headaches. General: Appears in no ao apparent distress. uncomfortable. General: Behavior is cooperative. Pain: Pain began 1 day ago. Also complains of no other associated symptoms. Pain: Pain currently is 9 out of 10 on a pain scale. Historical: - Allergies: 06:23 Aspirin; ao 06:23 Cefaclor; ao 06:23 Celecoxib; ao 06:23 Cephalexin; ao 06:23 CEPHALOSPORINS; ao 06:23 Chlorpromazine; ao 06:23 chlorpromazine HCl; ao 06:23 esomeprazole mag; ao 06:23 Ketorolac; ao 06:23 ketorolac tromethamine; ao 06:23 Meperidine; ao 06:23 Morphine; ao 06:23 prochlorperazine Edisylate; ao 06:23 Prochlorperazine Maleate; ao 06:23 Rofecoxib; ao 06:23 Sulfa (Sulfonamide Antibiotics); ao 06:23 SUMATRIPTAN; ao 06:23 Sumatriptan Succinate; ao - Home Meds: 06:23 Tylenol #3 Oral [Active]; ao - PMHx: 06:23 Chronic headaches; Chronic pain; Hypertension; ao - PSHx: 06:23 Unable to obtain; ao - Immunization history:: Adult Immunizations up to date. - Social history:: Smoking status: Patient/guardian denies using tobacco, Patient/guardian denies using alcohol, street drugs. - Ebola Screening: : Patient negative for fever greater than or equal to 101.5 degrees Fahrenheit, and additional compatible Ebola Virus Disease symptoms Patient denies exposure to infectious person Patient denies travel to an Ebola-affected area in the 21 days before illness onset. Screenin:19 Abuse screen: Denies threats or abuse. Denies injuries from another. Nutritional aa1 screening: No deficits noted. Tuberculosis screening: No symptoms or risk factors identified. Fall Risk None identified. Assessment: 06:19 General: Appears in no apparent distress. comfortable, Behavior is calm, cooperative, aa1 appropriate for age. Pain: Complains of pain in forehead, left side of head and right side of head Pain currently is 9 out of 10 on a pain scale. Quality of pain is described as aching, throbbing, Is intermittent, chronic. Neuro: Level of Consciousness is awake, alert, obeys commands, Oriented to person, place, time, situation, Moves all extremities. Gait is steady, Speech is normal, Reports headache. Respiratory: Airway is patent Respiratory effort is even, unlabored, Respiratory pattern is regular, symmetrical. GI: Reports nausea. : No signs and/or symptoms were reported regarding the genitourinary system. EENT: No signs and/or symptoms were reported regarding the EENT system. Derm: Skin is intact, is healthy with good turgor, Skin is pink, warm \\T\\ dry. Musculoskeletal: Circulation, motion, and sensation intact. Capillary refill < 3 seconds. 06:46 Reassessment: DC instructions given to patient. Patient agree with the POC and to ao follow up with Dr marmolejo. Vital Signs: 06:19 BP 191 / 101; Pulse 89; Resp 16; Temp 98.2; Pulse Ox 100% on R/A; Weight 58.97 kg (R); ao Height 5 ft. 7 in. (170.18 cm) (R); Pain 9/10; 06:19 Body Mass Index 20.36 (58.97 kg, 170.18 cm) ao Lindsey Coma Score: 06:30 Eye Response: spontaneous(4). Verbal Response: oriented(5). Motor Response: obeys snw commands(6). Total: 15. ED Course: 06:07 Patient arrived in ED. es 06:08 Thang Montero DO is Private Physician. es 06:19 Triage completed. ao 06:19 Leyla Enriquez FNP-C is [facility]. snw 06:19 Ronny Arguelles MD is Attending Physician. snw 06:19 Patient has correct armband on for positive identification. Bed in low position. Call aa1 light in reach. Pulse ox on. NIBP on. Warm blanket given. 06:20 Arm band placed on right wrist. Patient placed in an exam room, in a wheelchair, on ao pulse oximetry, Patient notified of wait time. 06:29 Anthony Shelby MD is Referral Physician. snw 06:44 Kelton Lizarraga, NAT is Primary Nurse. ao 06:45 No provider procedures requiring assistance completed. Patient did not have IV access ao during this emergency room visit. Administered Medications: 06:45 Drug: ZyrTEC - Cetirizine 10 mg Route: PO; ao 06:45 Follow up: Response: Medication administered at discharge. ao 06:45 Drug: Cyanocobalamin 1000 mcg Route: IM; Site: right gluteus; ao 06:45 Follow up: Response: Medication administered at discharge. ao Outcome: 06:29 Discharge ordered by . snw 06:45 Discharged to home via wheelchair. ao 06:45 Condition: stable 06:45 Discharge instructions given to patient, Instructed on discharge instructions, follow up and referral plans. Demonstrated understanding of instructions, follow-up care, medications. 06:46 Patient left the ED. ao Signatures: Makeda Hernandez RN RN aa1 Leyla Enriquez FNP-C [employer] Erica Leonard Kelton Lizarraga, RN RN ao
--- NOTE | 2018-04-29 06:30 | EDPHYS ---
Physician Documentation [facility] Name: Gloria Armenta Age: 82 yrs Sex: Female : 1935 Arrival Date: 04/29/2018 Time: 06:07 Bed 15 Private MD: Thang Montero ED Physician Ronny Arguelles HPI: 04/29 06:27 This 82 yrs old Female presents to ER via Ambulatory with complaints of snw Headache. 06:27 The patient complains of pain to the top of head and forehead. The patient describes snw the headache as throbbing. Onset: The symptoms/episode began/occurred gradually, 3 day(s) ago, and became persistent. Associated signs and symptoms: Pertinent positives: nausea. Severity of symptoms: At its worst the pain was moderate. Headache History: The patient has had previous headaches and this one is similar to previous episodes. The patient has experienced similar episodes in the past, chronically. The patient has been recently seen at the [facility] Emergency Department, yesterday. Historical: - Allergies: 06:23 Aspirin; ao 06:23 Cefaclor; ao 06:23 Celecoxib; ao 06:23 Cephalexin; ao 06:23 CEPHALOSPORINS; ao 06:23 Chlorpromazine; ao 06:23 chlorpromazine HCl; ao 06:23 esomeprazole mag; ao 06:23 Ketorolac; ao 06:23 ketorolac tromethamine; ao 06:23 Meperidine; ao 06:23 Morphine; ao 06:23 prochlorperazine Edisylate; ao 06:23 Prochlorperazine Maleate; ao 06:23 Rofecoxib; ao 06:23 Sulfa (Sulfonamide Antibiotics); ao 06:23 SUMATRIPTAN; ao 06:23 Sumatriptan Succinate; ao - Home Meds: 06:23 Tylenol #3 Oral [Active]; ao - PMHx: 06:23 Chronic headaches; Chronic pain; Hypertension; ao - PSHx: 06:23 Unable to obtain; ao - Immunization history:: Adult Immunizations up to date. - Social history:: Smoking status: Patient/guardian denies using tobacco, Patient/guardian denies using alcohol, street drugs. - Ebola Screening: : Patient negative for fever greater than or equal to 101.5 degrees Fahrenheit, and additional compatible Ebola Virus Disease symptoms Patient denies exposure to infectious person Patient denies travel to an Ebola-affected area in the 21 days before illness onset. ROS: 06:27 Constitutional: Negative for fever, chills, and weight loss, Eyes: Negative for injury, snw pain, redness, and discharge, ENT: Negative for injury, pain, and discharge, Neck: Negative for injury, pain, and swelling, Cardiovascular: Negative for chest pain, palpitations, and edema, Respiratory: Negative for shortness of breath, cough, wheezing, and pleuritic chest pain, Abdomen/GI: Negative for abdominal pain, nausea, vomiting, diarrhea, and constipation, Back: Negative for injury and pain, : Negative for injury, bleeding, discharge, and swelling, MS/Extremity: Negative for injury and deformity, Skin: Negative for injury, rash, and discoloration, Psych: Negative for depression, anxiety, suicide ideation, homicidal ideation, and hallucinations. 06:27 Neuro: Positive for headache, of the top of head and forehead. Exam: 06:26 Constitutional: This is a well developed, well nourished patient who is awake, alert, snw and in no acute distress. Head/Face: Normocephalic, atraumatic. Eyes: Pupils equal round and reactive to light, extra-ocular motions intact. Lids and lashes normal. Conjunctiva and sclera are non-icteric and not injected. Cornea within normal limits. Periorbital areas with no swelling, redness, or edema. Neck: Trachea midline, no thyromegaly or masses palpated, and no cervical lymphadenopathy. Supple, full range of motion without nuchal rigidity, or vertebral point tenderness. No Meningismus. Chest/axilla: Normal chest wall appearance and motion. Nontender with no deformity. No lesions are appreciated. 06:26 Respiratory: Lungs have equal breath sounds bilaterally, clear to auscultation and percussion. No rales, rhonchi or wheezes noted. No increased work of breathing, no retractions or nasal flaring. Abdomen/GI: Soft, non-tender, with normal bowel sounds. No distension or tympany. No guarding or rebound. No evidence of tenderness throughout. Back: No spinal tenderness. No costovertebral tenderness. Full range of motion. Skin: Warm, dry with normal turgor. Normal color with no rashes, no lesions, and no evidence of cellulitis. MS/ Extremity: Pulses equal, no cyanosis. Neurovascular intact. Full, normal range of motion. Neuro: Awake and alert, GCS 15, oriented to person, place, time, and situation. Cranial nerves II-XII grossly intact. Motor strength 5/5 in all extremities. Sensory grossly intact. Cerebellar exam normal. Normal gait. 06:26 ENT: Mouth: Oral mucosa: glossitis, Tongue: 06:26 Cardiovascular: Rate: normal, Rhythm: regular, Pulses: no pulse deficits are appreciated, Heart sounds: murmur. Vital Signs: 06:19 BP 191 / 101; Pulse 89; Resp 16; Temp 98.2; Pulse Ox 100% on R/A; Weight 58.97 kg (R); ao Height 5 ft. 7 in. (170.18 cm) (R); Pain 9/10; 06:19 Body Mass Index 20.36 (58.97 kg, 170.18 cm) ao [place] Coma Score: 06:30 Eye Response: spontaneous(4). Verbal Response: oriented(5). Motor Response: obeys snw commands(6). Total: 15. MDM: 06:19 Patient medically screened. snw 06:30 Data reviewed: vital signs, nurses notes. Counseling: I had a detailed discussion with snw the patient and/or guardian regarding: the historical points, exam findings, and any diagnostic results supporting the discharge/admit diagnosis, the presence of at least one elevated blood pressure reading (>120/80) during this emergency department visit, the need for outpatient follow up, to return to the emergency department if symptoms worsen or persist or if there are any questions or concerns that arise at home. Special discussion: Based on the history and exam findings, there is no indication for further emergent testing or inpatient evaluation. I discussed with the patient/guardian the need to see the neurologist for further evaluation of the symptoms. I discussed with the patient/guardian the need to see the primary care provider for further evaluation of the symptoms. Administered Medications: 06:45 Drug: ZyrTEC - Cetirizine 10 mg Route: PO; ao 06:45 Follow up: Response: Medication administered at discharge. ao 06:45 Drug: Cyanocobalamin 1000 mcg Route: IM; Site: right gluteus; ao 06:45 Follow up: Response: Medication administered at discharge. ao Disposition: 06:50 Co-signature as Attending Physician, Ronny Arguelles MD I agree with the assessment and [facility] plan of care. Disposition: 04/29/18 06:29 Discharged to Home. Impression: Headache, Glossitis. - Condition is Stable. - Discharge Instructions: High-Fiber Diet, Iron-Rich Diet, Glossitis, General Headache Without Cause, Analgesic Rebound Headaches, Hypertension, Rehydration, Adult. - Medication Reconciliation Form, Thank You Letter, Antibiotic Education, Prescription Opioid Use form. - Follow up: Anthony Shelby MD; When: Tomorrow; Reason: Recheck today's complaints, Continuance of care, Re-evaluation by your physician. Signatures: Ronny Arguelles MD MD cha Therrien, Shelly, SENIOR ELECTRICAL DESIGNER-C SENIOR ELECTRICAL DESIGNER-Csnw Kelton Lizarraga RN RN ao Corrections: (The following items were deleted from the chart) 06:46 06:29 04/29/2018 06:29 Discharged to Home. Impression: Headache; Glossitis. Condition ao is Stable. Forms are Medication Reconciliation Form, Thank You Letter, Antibiotic Education, Prescription Opioid Use. Follow up: Anthony Shelby; When: Tomorrow; Reason: Recheck today's complaints, Continuance of care, Re-evaluation by your physician. snw
[2018-04-29] MEDS ORDERED: CETIRIZINE HCL 5 MG TABLET ONE (06:32)
[2018-04-29] MEDS ORDERED: CYANOCOBALAMIN 1000MCG/ML INJ ONE (06:38)
[2018-04-29 06:51] VITALS: BP 191/101; TEMP 98.2; O2SAT 100
== END 2018-04-29 06:46 | disposition home or self-care (01) ==
LOC: ER 06:04
DX: R51 Headache (principal); K14.0 Glossitis; Z88.6 Allergy status to analgesic agent; Z88.2 Allergy status to sulfonamides; Z88.8 Allergy status to other drugs, medicaments and biological substances
CPT/HCPCS: 96372; 99283; J3420

== ENCOUNTER 2018-05-31 03:02 | Emergency (ER) | payer OTHER ==
--- OUTSIDE RECORDS SUMMARY | 2018-05-31 03:04 | XMS REPORT | Clinical Summary ---
:1935 [address] [facility] Address [address] [place] [address] Phone Care Team Providers Name Role Phone [...] type;Hypothyroidism, unspecified type;Acute cystitis without hematuria after 05/30/2017 Social History Tobacco Use Types Packs/Day Years Used Date Never Smoker Smokeless Tobacco: Never Used Sex Assigned at Date Recorded Not on file Last Filed Vital Signs Vital Sign Reading Time Taken Blood Pressure 157/77 12/20/2017 11:34 AM [employer] Pulse 76 12/20/2017 11:34 AM [employer] Temperature 36.5 C (97.7 F) 12/20/2017 11:34 AM [employer] Respiratory Rate 18 12/20/2017 11:34 AM [employer] Oxygen Saturation 98% 12/20/2017 11:34 AM [employer] Inhaled Oxygen Concentration - - Weight 54 kg (119 lb) 12/20/2017 5:00 AM [employer] Height 157.5 cm (5' 2") 12/16/2017 5:25 PM [employer] Body Mass Index 21.77 12/20/2017 5:00 AM [employer] Plan of Treatment Not on file Results RHYTHM STRIP - SCAN (12/21/2017 2:41 PM)Magnesium (12/19/2017 7:31 AM)Only the most recent of2 resultswithin the time period is included. Component Value Ref Range Magnesium 2.2Comment: Specimen slightly hemolyzed 1.6 - 2.6 mg/dL Specimen Performing Laboratory Blood - Line, Venous [facility] [address] [address] Basic Metabolic Panel (12/19/2017 7:31 AM)Only the [...] Specimen Performing Laboratory Blood - Line, Venous [address] [address] CBC with platelet count + automated diff [...] Specimen Performing Laboratory Blood - Line, Venous [address] [address] CBC with platelet count + automated diff (12/19/2017 6:58 AM)Only the most recent of4 resultswithin the time period is included. Specimen Performing Laboratory Blood Narrative The following orders were created for panel order CBC with platelet count + automated diff. Procedure Abnormality Status --------- ------ CBC with platelet count ...[[id number]]AbnormalFinal result Please view results for these tests [...] to 12/17/2017 DATE OF REPORT 12/16/17 ACC: [id number] Start time: 22:43 Stop time: 06:45 ICD-10: G93.40 CPT Code: 18526 HISTORY: 82 yo F with history of chronic pain, chronic Lozano, osteoporosis, HTN, who was transferred from [facility] for AMS and seizures. UDS + (patient [...] External Ris In - 12/17/2017 4:19 PM [employer] Addendum Begins Addendum: Start time: 0645 Stop [...] to 12/17/2017 DATE OF REPORT 12/16/17 ACC: [id number] Start time: 22:43 Stop time: 06:45 ICD-10: G93.40 CPT Code: 83460 HISTORY: 82 yo F with history of [...] TEST: 12/16/17 DATE OF REPORT 12/16/17 ACC: [id number] Start time: 22:22 Stop time: 22:43 ICD-10: G93.40 CPT Code: 47900 HISTORY: 82 yo F with history of [...] Galeas MD Epilepsy Fellow Nabila Sanchez M.D., [facility] Professor of Neurology Director, [facility] Epilepsy [place], [facility] Neurophysiology Lab Procedure Note Interface, External Ris In - 12/16/2017 11:06 PM [employer] DATE OF TEST: 12/16/17 DATE OF REPORT 12/16/17 ACC: [id number] Start time: 22:22 Stop time: 22:43 ICD-10: G93.40 CPT Code: 07142 HISTORY: 82 yo F with history of chronic pain, chronic Lozano, osteoporosis, HTN, who was transferred from [facility] for AMS and seizures. UDS + (patient [...] Galeas MD Epilepsy Fellow Nabila Sanchez M.D., [facility] Professor of Neurology Director, [facility] Epilepsy [place], [facility] Neurophysiology Lab chest 1 view [...] MD Report Verified Date/Time:12/16/2017 21:41:51 Reading Location: [address] Reading Room Procedure Note Interface, External Ris In - 12/16/2017 9:44 PM [employer] FINAL REPORT INDICATION: concern for PNA COMPARISON: None TECHNIQUE: Single frontal view of the chest. FINDINGS: Limited by severe scoliosis and contractures. Lungs and pleura: Clear lungs. No effusion. Heart and mediastinum: Normal heart size. Unremarkable mediastinal contours. Osseous structures: No acute abnormality. Other: None. IMPRESSION: No acute intrathoracic abnormality. Signed: JR Lamb Robert MD Report Verified Date/Time: 12/16/2017 21:41:51 Reading Location: [address] Reading Room Urine culture (12/16/2017 8:45 PM) Component Value Ref Range Result Result >100,000 col/mL Citrobacter braakii (A) Specimen Performing Laboratory Urine - Urine, [place] [address] [address] Organism Antibiotic Method Susceptibility Citrobacter braakii Amikacin [...] 15.8 >=7.0 ng/mL Specimen Performing Laboratory Blood [address] [address] TSH/Free T4 If Indicated (12/16/2017 6:50 PM) Component Value Ref Range TSH 3.15 0.35 - 4.94 uIU/mL Specimen Performing Laboratory Blood [address] [address] Iron, TIBC, % sat. (without ferritin) (12/16/2017 6:50 PM) Component Value Ref Range Iron 24 (L) 40 - 160 ug/dL TIBC 309 250 - 450 ug/dL Iron % Saturation 8 (L) 20 - 55 % Specimen Performing Laboratory [address] [address] Vitamin D, 25-Hydroxy (12/16/2017 6:50 PM) Component Value Ref Range Vitamin D 25-Hydroxy 8.2 6.6 - 49.9 ng/mL Specimen Performing Laboratory Blood [address] [address] Narrative Effective 09/05/2017: Reference Range Change New: 6.6-49.9 ng/mL Previous: 13.0-47.8 ng/mL Recommended Vitamin D Target Range: 30.0-40.0 ng/mL Blood culture (12/16/2017 6:50 PM) Component Value Ref Range Result No growth in 5 days Specimen Performing Laboratory Blood - Arm, Right [address] [address] Urinalysis w/ Microscopic (12/16/2017 6:50 PM) Component Value Ref Range Color, UA Yellow Clarity, UA Clear Specific [place], UA 1.017 1.001 - 1.035 pH, UA [...] Specimen Performing Laboratory Urine - Urine, [place] [address] [address] Ferritin (12/16/2017 6:50 PM) Component Value Ref Range Ferritin 36 5 - 275 ng/mL Specimen Performing Laboratory Blood [address] [address] after 05/30/2017
--- OUTSIDE RECORDS SUMMARY | 2018-05-31 03:05 | XMS REPORT ---
:1935 [facility] Address [address] [place] [address] [address] [place] [address] Care Team Providers Name Role Phone BISHOPNICHOLE ULLOA Unavailable Unavailable Problems This patient has no known problems. Allergies, Adverse Reactions, Alerts This patient has no known allergies or adverse reactions. Medications This patient has no known medications. Results Test Description Test Time Test Comments Text Results Atomic Results Result Comments BLOOD CULTURE 2017-12-22 05:01:00 Test Item Value Reference Range Comments CULTURE (BEAKER) (test ibsj=8387) No growth in 5 days [id number] 11:31:00 Test Item Value Reference Range Comments MAGNESIUM (BEAKER) (test 2.2 mg/dL 1.6-2.6 Specimen slightly hemolyzed neks=394) BASIC METABOLIC [id number] 11:31:00 Test Item Value Reference Range Comments SODIUM (BEAKER) (test 139 meq/L 136-145 scpy=407) POTASSIUM (BEAKER) (test 4.0 meq/L 3.5-5.1 Specimen slightly zedd=620) hemolyzed CHLORIDE (BEAKER) (test 104 meq/L 98-107 cplh=670) CO2 (BEAKER) (test 27 meq/L 22-29 arst=423) BLOOD UREA NITROGEN 7 mg/dL 7-21 (BEAKER) (test lmnn=061) CREATININE (BEAKER) (test 0.60 mg/dL 0.57-1.25 Specimen slightly naww=898) hemolyzed GLUCOSE RANDOM (BEAKER) 113 mg/dL 70-105 (test ylue=265) CALCIUM (BEAKER) (test 8.3 mg/dL 8.4-10.2 amjd=209) EGFR (BEAKER) (test 95 mL/min/1.73 sq m ESTIMATED GFR IS NOT frcg=1043) ACCURATE CREATININE CLEARANCE IN PREDICTING GLOMERULAR FILTRATION RATE. ESTIMATED GFR IS NOT APPLICABLE FOR DIALYSIS PATIENTS. URINE [id number] 09:10:00 Test Item Value Reference Range Comments CULTURE (BEAKER) (test rdpx=1292) Amikacin (test code=1) Aztreonam (test code=32) Cefepime (test code=51) Cefoxitin (test code=68) Ceftazidime (test code=27) Ceftriaxone (test code=52) Ertapenem (test code=38) Gentamicin (test code=18) Levofloxacin (test code=22) Meropenem (test code=34) Nitrofurantoin (test code=23) Piperacillin + Tazobactam (test code=29) Tetracycline (test code=2) Tobramycin (test code=25) Trimethoprim + Sulfamethoxazole (test code=47) CULTURE (BEAKER) (test lafl=6241) >100,000 col/mL Citrobacter braakii CBC W/PLT COUNT & AUTO [id number] 07:05:00 Test Item Value Reference Range Comments WHITE BLOOD CELL COUNT (BEAKER) (test xfwy=843) 7.5 K/ L 3.5-10.5 RED BLOOD CELL COUNT (BEAKER) (test ahbc=376) 4.30 M/ L 3.93-5.22 HEMOGLOBIN (BEAKER) (test cubt=358) 10.1 GM/DL 11.2-15.7 HEMATOCRIT (BEAKER) (test daiq=521) 32.6 % 34.1-44.9 MEAN CORPUSCULAR VOLUME (BEAKER) (test twes=922) 75.8 fL 79.4-94.8 MEAN CORPUSCULAR HEMOGLOBIN (BEAKER) (test 23.5 pg 25.6-32.2 zkqt=132) MEAN CORPUSCULAR HEMOGLOBIN CONC (BEAKER) (test 31.0 GM/DL 32.2-35.5 yslt=362) RED CELL DISTRIBUTION WIDTH (BEAKER) (test 14.1 % 11.7-14.4 blvk=658) PLATELET COUNT (BEAKER) (test uhge=014) 289 K/CU MM 150-450 MEAN PLATELET VOLUME (BEAKER) (test zrkx=608) 9.1 fL 9.4-12.3 NUCLEATED RED BLOOD CELLS (BEAKER) (test 0 /100 WBC 0-0 raif=513) NEUTROPHILS RELATIVE PERCENT (BEAKER) (test 73 % epwm=094) LYMPHOCYTES RELATIVE PERCENT (BEAKER) (test 15 % edhd=473) MONOCYTES RELATIVE PERCENT (BEAKER) (test 9 % gxei=956) EOSINOPHILS RELATIVE PERCENT (BEAKER) (test 2 % njet=390) BASOPHILS RELATIVE PERCENT (BEAKER) (test 0 % ichc=861) NEUTROPHILS ABSOLUTE COUNT (BEAKER) (test 5.50 K/ L 1.56-6.13 cxkx=174) LYMPHOCYTES ABSOLUTE COUNT (BEAKER) (test 1.12 K/ L 1.18-3.74 rqlp=195) MONOCYTES ABSOLUTE COUNT (BEAKER) (test 0.67 K/ L 0.24-0.36 kqag=864) EOSINOPHILS ABSOLUTE COUNT (BEAKER) (test 0.16 K/ L 0.04-0.36 klez=030) BASOPHILS ABSOLUTE COUNT (BEAKER) (test 0.03 K/ L 0.01-0.08 nwrw=628) IMMATURE GRANULOCYTES-RELATIVE PERCENT (BEAKER) 0 % 0-1 (test hhlp=9412) [id number] 08:15:00 Test Item Value Reference Range Comments MAGNESIUM (BEAKER) (test xotj=515) 1.7 mg/dL 1.6-2.6 CBC W/PLT COUNT & AUTO [id number] 04:24:00 Test Item Value Reference Range Comments WHITE BLOOD CELL COUNT (BEAKER) (test cnlq=022) 6.7 K/ L 3.5-10.5 RED BLOOD CELL COUNT (BEAKER) (test qrag=170) 3.69 M/ L 3.93-5.22 HEMOGLOBIN (BEAKER) (test iwyi=885) 8.6 GM/DL 11.2-15.7 HEMATOCRIT (BEAKER) (test ubgc=943) 28.5 % 34.1-44.9 MEAN CORPUSCULAR VOLUME (BEAKER) (test tbky=050) 77.2 fL 79.4-94.8 MEAN CORPUSCULAR HEMOGLOBIN (BEAKER) (test 23.3 pg 25.6-32.2 afzv=187) MEAN CORPUSCULAR HEMOGLOBIN CONC (BEAKER) (test 30.2 GM/DL 32.2-35.5 fdmn=098) RED CELL DISTRIBUTION WIDTH (BEAKER) (test 13.7 % 11.7-14.4 weld=740) PLATELET COUNT (BEAKER) (test xrzt=793) 249 K/CU MM 150-450 MEAN PLATELET VOLUME (BEAKER) (test pvsz=266) 8.8 fL 9.4-12.3 NUCLEATED RED BLOOD CELLS (BEAKER) (test 0 /100 WBC 0-0 nbut=318) NEUTROPHILS RELATIVE PERCENT (BEAKER) (test 64 % ejuh=868) LYMPHOCYTES RELATIVE PERCENT (BEAKER) (test 21 % lpjc=425) MONOCYTES RELATIVE PERCENT (BEAKER) (test 12 % tunu=349) EOSINOPHILS RELATIVE PERCENT (BEAKER) (test 3 % asxi=037) BASOPHILS RELATIVE PERCENT (BEAKER) (test 0 % pqms=296) NEUTROPHILS ABSOLUTE COUNT (BEAKER) (test 4.23 K/ L 1.56-6.13 wfhb=918) LYMPHOCYTES ABSOLUTE COUNT (BEAKER) (test 1.39 K/ L 1.18-3.74 gxhq=135) MONOCYTES ABSOLUTE COUNT (BEAKER) (test 0.80 K/ L 0.24-0.36 gvso=833) EOSINOPHILS ABSOLUTE COUNT (BEAKER) (test 0.20 K/ L 0.04-0.36 ixoq=197) BASOPHILS ABSOLUTE COUNT (BEAKER) (test 0.02 K/ L 0.01-0.08 igvb=847) IMMATURE GRANULOCYTES-RELATIVE PERCENT (BEAKER) 0 % 0-1 (test roqy=8551) BASIC METABOLIC [id number] 04:19:00 Test Item Value Reference Range Comments SODIUM (BEAKER) (test 139 meq/L 136-145 wkpg=025) POTASSIUM (BEAKER) (test 3.1 meq/L 3.5-5.1 iois=260) CHLORIDE (BEAKER) (test 103 meq/L 98-107 dvzn=118) CO2 (BEAKER) (test 29 meq/L 22-29 zlic=517) BLOOD UREA NITROGEN 12 mg/dL 7-21 (BEAKER) (test jqdq=008) CREATININE (BEAKER) (test 0.65 mg/dL 0.57-1.25 opjs=755) GLUCOSE RANDOM (BEAKER) 91 mg/dL 70-105 (test bynb=482) CALCIUM (BEAKER) (test 8.1 mg/dL 8.4-10.2 thzq=350) EGFR (BEAKER) (test 87 mL/min/1.73 sq m ESTIMATED GFR IS NOT ozjy=5549) ACCURATE CREATININE CLEARANCE IN PREDICTING GLOMERULAR FILTRATION RATE. ESTIMATED GFR IS NOT APPLICABLE FOR DIALYSIS PATIENTS. EEG MONITORING WITH VIDEO RECORDING EACH 24 [id number] 16:19:00Addendum BeginsAddendum:Start time: 45op time: 1613 There continues to be background [...] 12/16/2017 to DATE OF REPORT 12/16/17 ACC: [id number] Start time: 22: 43 Stop time: 06:45 ICD-10: G93.40 CPT Code: 34720 HISTORY: 82 yo F with history of [...] interest. No seizures occurred during this recording. Saiad Wilkerson MD Neurophysiology Fellow Gely Cleary MD, MS Epilepsy/Neurophysiology Attending [facility] METABOLIC [id number] 04:38:00 Test Item Value Reference Range Comments SODIUM (BEAKER) (test 142 meq/L 136-145 ljdg=100) POTASSIUM (BEAKER) (test 3.0 meq/L 3.5-5.1 yxsi=392) CHLORIDE (BEAKER) (test 104 meq/L 98-107 gxrg=740) CO2 (BEAKER) (test 31 meq/L 22-29 hxhf=013) BLOOD UREA NITROGEN 13 mg/dL 7-21 (BEAKER) (test yomd=852) CREATININE (BEAKER) (test 0.64 mg/dL 0.57-1.25 bkjp=450) GLUCOSE RANDOM (BEAKER) 122 mg/dL 70-105 (test ourq=077) CALCIUM (BEAKER) (test 8.1 mg/dL 8.4-10.2 rzop=489) EGFR (BEAKER) (test 89 mL/min/1.73 sq m ESTIMATED GFR IS NOT zjxa=9970) ACCURATE CREATININE CLEARANCE IN PREDICTING GLOMERULAR FILTRATION RATE. ESTIMATED GFR IS NOT APPLICABLE FOR DIALYSIS PATIENTS. CBC W/PLT COUNT & AUTO [id number] 04:03:00 Test Item Value Reference Range Comments WHITE BLOOD CELL COUNT (BEAKER) (test nyxh=133) 8.6 K/ L 3.5-10.5 RED BLOOD CELL COUNT (BEAKER) (test hrgj=344) 3.94 M/ L 3.93-5.22 HEMOGLOBIN (BEAKER) (test evau=998) 9.1 GM/DL 11.2-15.7 HEMATOCRIT (BEAKER) (test jqxd=731) 30.3 % 34.1-44.9 MEAN CORPUSCULAR VOLUME (BEAKER) (test ldzu=128) 76.9 fL 79.4-94.8 MEAN CORPUSCULAR HEMOGLOBIN (BEAKER) (test 23.1 pg 25.6-32.2 cadr=995) MEAN CORPUSCULAR HEMOGLOBIN CONC (BEAKER) (test 30.0 GM/DL 32.2-35.5 dquf=579) RED CELL DISTRIBUTION WIDTH (BEAKER) (test 13.4 % 11.7-14.4 gjjd=006) PLATELET COUNT (BEAKER) (test pdaa=346) 287 K/CU MM 150-450 MEAN PLATELET VOLUME (BEAKER) (test eaqs=692) 8.7 fL 9.4-12.3 NUCLEATED RED BLOOD CELLS (BEAKER) (test 0 /100 WBC 0-0 qehk=853) NEUTROPHILS RELATIVE PERCENT (BEAKER) (test 74 % xuoe=725) LYMPHOCYTES RELATIVE PERCENT (BEAKER) (test 16 % nsrf=313) MONOCYTES RELATIVE PERCENT (BEAKER) (test 9 % xahb=787) EOSINOPHILS RELATIVE PERCENT (BEAKER) (test 1 % pifq=939) BASOPHILS RELATIVE PERCENT (BEAKER) (test 0 % pkyn=553) NEUTROPHILS ABSOLUTE COUNT (BEAKER) (test 6.35 K/ L 1.56-6.13 phef=763) LYMPHOCYTES ABSOLUTE COUNT (BEAKER) (test 1.35 K/ L 1.18-3.74 dski=957) MONOCYTES ABSOLUTE COUNT (BEAKER) (test 0.80 K/ L 0.24-0.36 axyo=807) EOSINOPHILS ABSOLUTE COUNT (BEAKER) (test 0.08 K/ L 0.04-0.36 durc=037) BASOPHILS ABSOLUTE COUNT (BEAKER) (test 0.03 K/ L 0.01-0.08 hlxr=558) IMMATURE GRANULOCYTES-RELATIVE PERCENT (BEAKER) 0 % 0-1 (test apdi=9386) EEG AWAKE AND [id number] 23:06:00For STAT EEG- after 5 PM weekdays, weekends and holidays, page the on-call limnology teacher Reason for exam:->seizure, AMSDATE OF TEST: 1/21/18DATE OF REPORT 12/16/17ACC: [id number]: [id number] time : 22:22Stop time: 22:43ICD-10: G93.40CPT Code: 81619 HISTORY: 82 yo F with history of chronic pain, chronic Lozano, osteoporosis, HTN, who was transferred from [facility] for AMS and seizures. UDS + (patient [...] FACNSProfessor of NeurologyDirector, [facility] Neuro[facility] Electronically signed by: NABILA Foreman 12/16/2017 11:06 PMRAD, CHEST, 1 VIEW, NON [id number] 21:41: 00Reason for exam:->concern for PNAShould this [...] MDReport Verified Date/Time: 12/16/2017 21:41:51 Reading Location: [address] Reading Room [id number] 19:57:00 Test Item Value Reference Range Comments FERRITIN (BEAKER) (test vdfm=035) 36 ng/mL 5-275 VITAMIN D, [id number] 19:57:00 Test Item Value Reference Range Comments VITAMIN D 25-OH (BEAKER) (test bzeq=5808) 8.2 ng/mL 6.6-49.9 Effective 09/05/2017: Reference Range ChangeNew: 6.6-49.9 ng/mL Previous: 13.0 -47.8 ng/mLRecommended Vitamin D Target Range: 30.0-40.0 ng/mLTSH/FREE T4 IF [id number] 19:57:00 Test Item Value Reference Range Comments THYROID STIMULATING HORMONE (BEAKER) (test 3.15 uIU/mL 0.35-4.94 fglr=246) VITAMIN B12 AND [id number] 19:57:00 Test Item Value Reference Range Comments VITAMIN B12 (BEAKER) (test odxs=663) 376 pg/mL 213-816 FOLATE (BEAKER) (test hqea=428) 15.8 ng/mL >=7.0 URINALYSIS W/ [id number] 19:28:00 Test Item Value Reference Range Comments COLOR (BEAKER) (test jddt=042) Yellow CLARITY (BEAKER) (test uqpv=214) Clear SPECIFIC GRAVITY UA (BEAKER) (test mrte=258) 1.017 1.001-1.035 PH UA (BEAKER) (test wjsy=226) 5.5 5.0-8.0 PROTEIN UA (BEAKER) (test bbft=963) 50 mg/dL Negative GLUCOSE UA (BEAKER) (test bqqs=070) Negative Negative KETONES UA (BEAKER) (test bolx=919) 40 mg/dL Negative BILIRUBIN UA (BEAKER) (test caxl=786) Negative Negative BLOOD UA (BEAKER) (test ypdh=477) Negative Negative NITRITE UA (BEAKER) (test vwdh=936) Negative Negative LEUKOCYTE ESTERASE UA (BEAKER) (test frvl=863) Moderate Negative UROBILINOGEN UA (BEAKER) (test vxho=040) 0.2 mg/dL 0.2-1.0 RBC UA (BEAKER) (test bsdz=832) 1 /HPF WBC UA (BEAKER) (test bnno=485) 55 /HPF BACTERIA (BEAKER) (test kypa=608) Occasional MUCUS (BEAKER) (test zgux=8291) Many HYALINE CASTS (BEAKER) (test tkxq=194) 10 /LPF SOURCE(BEAKER) (test sueb=0852) Urine, [place] IRON, TIBC, % SAT. (WITHOUT FERRITIN)2017-12-16 19:21:00 Test Item Value Reference Range Comments IRON (BEAKER) (test tlbg=543) 24 ug/dL 40-160 TOTAL IRON BINDING CAPACITY (BEAKER) (test 309 ug/dL 250-450 zwqb=623) IRON % SATURATION (2) (BEAKER) (test dime=2082) 8 % 20-55 BASIC METABOLIC [id number] 19:20:00 Test Item Value Reference Range Comments SODIUM (BEAKER) (test 141 meq/L 136-145 leaf=558) POTASSIUM (BEAKER) (test 4.0 meq/L 3.5-5.1 Specimen moderately ovlp=877) hemolyzed CHLORIDE (BEAKER) (test 102 meq/L 98-107 zcty=056) CO2 (BEAKER) (test 30 meq/L 22-29 malh=267) BLOOD UREA NITROGEN 12 mg/dL 7-21 (BEAKER) (test xupe=296) CREATININE (BEAKER) (test 0.66 mg/dL 0.57-1.25 Specimen moderately fuvf=256) hemolyzed GLUCOSE RANDOM (BEAKER) 102 mg/dL 70-105 (test npxn=497) CALCIUM (BEAKER) (test 8.3 mg/dL 8.4-10.2 brqp=219) EGFR (BEAKER) (test 86 mL/min/1.73 sq m ESTIMATED GFR IS NOT fbac=7078) ACCURATE CREATININE CLEARANCE IN PREDICTING GLOMERULAR FILTRATION RATE. ESTIMATED GFR IS NOT APPLICABLE FOR DIALYSIS PATIENTS. CBC W/PLT COUNT & AUTO [id number] 19:06:00 Test Item Value Reference Range Comments WHITE BLOOD CELL COUNT (BEAKER) (test pmeg=361) 8.2 K/ L 3.5-10.5 RED BLOOD CELL COUNT (BEAKER) (test shnq=494) 4.05 M/ L 3.93-5.22 HEMOGLOBIN (BEAKER) (test irfo=894) 9.4 GM/DL 11.2-15.7 HEMATOCRIT (BEAKER) (test anfh=205) 30.9 % 34.1-44.9 MEAN CORPUSCULAR VOLUME (BEAKER) (test zeuw=875) 76.3 fL 79.4-94.8 MEAN CORPUSCULAR HEMOGLOBIN (BEAKER) (test 23.2 pg 25.6-32.2 mjnq=049) MEAN CORPUSCULAR HEMOGLOBIN CONC (BEAKER) (test 30.4 GM/DL 32.2-35.5 vnvs=504) RED CELL DISTRIBUTION WIDTH (BEAKER) (test 13.6 % 11.7-14.4 xqdv=153) PLATELET COUNT (BEAKER) (test wwwt=758) 301 K/CU MM 150-450 MEAN PLATELET VOLUME (BEAKER) (test xrvc=194) 8.7 fL 9.4-12.3 NUCLEATED RED BLOOD CELLS (BEAKER) (test 0 /100 WBC 0-0 wxfs=458) NEUTROPHILS RELATIVE PERCENT (BEAKER) (test 78 % txij=889) LYMPHOCYTES RELATIVE PERCENT (BEAKER) (test 13 % psom=513) MONOCYTES RELATIVE PERCENT (BEAKER) (test 9 % dbtm=836) EOSINOPHILS RELATIVE PERCENT (BEAKER) (test 1 % ffvn=381) BASOPHILS RELATIVE PERCENT (BEAKER) (test 0 % ibyq=008) NEUTROPHILS ABSOLUTE COUNT (BEAKER) (test 6.35 K/ L 1.56-6.13 gaks=858) LYMPHOCYTES ABSOLUTE COUNT (BEAKER) (test 1.06 K/ L 1.18-3.74 clah=763) MONOCYTES ABSOLUTE COUNT (BEAKER) (test 0.70 K/ L 0.24-0.36 raqq=214) EOSINOPHILS ABSOLUTE COUNT (BEAKER) (test 0.04 K/ L 0.04-0.36 lkpd=777) BASOPHILS ABSOLUTE COUNT (BEAKER) (test 0.03 K/ L 0.01-0.08 brih=734) IMMATURE GRANULOCYTES-RELATIVE PERCENT (BEAKER) 0 % 0-1 (test zobp=9725)
[2018-05-31] MEDS ORDERED: cloNIDine HCl 0.1 MG TAB ONE ×2 (03:28→04:07)
[2018-05-31] MEDS ORDERED: TRAMADOL HCL 50 MG TAB ONE (03:30)
--- NOTE | 2018-05-31 03:47 | EDPHYS ---
Physician Documentation [facility] Name: Gloria Armenta Age: 82 yrs Sex: Female : 1935 Arrival Date: 05/31/2018 Time: 03:03 Bed 14 Private MD: ED Physician Shen Hampton HPI: 05/31 03:22 This 82 yrs old Female presents to ER via Ambulatory with complaints of pkl Migraine. 03:22 The patient complains of pain to the forehead and right christianity. The patient describes pkl the headache as constant. Onset: The symptoms/episode began/occurred yesterday. The patient has experienced similar episodes in the past, multiple times. Historical: - Allergies: 03:18 Aspirin; tl2 03:18 Cefaclor; tl2 03:18 Celecoxib; tl2 03:18 Cephalexin; tl2 03:18 CEPHALOSPORINS; tl2 03:18 Chlorpromazine; tl2 03:18 chlorpromazine HCl; tl2 03:18 esomeprazole mag; tl2 03:18 Ketorolac; tl2 03:18 ketorolac tromethamine; tl2 03:18 Morphine; tl2 03:18 prochlorperazine Edisylate; tl2 03:18 Prochlorperazine Maleate; tl2 03:18 Rofecoxib; tl2 03:18 Sulfa (Sulfonamide Antibiotics); tl2 03:18 SUMATRIPTAN; tl2 03:18 Sumatriptan Succinate; tl2 - Home Meds: 03:18 Tylenol #3 Oral [Active]; tl2 - PMHx: 03:18 Chronic headaches; Chronic pain; Hypertension; tl2 - Immunization history:: Adult Immunizations. - Social history:: Smoking status: Patient/guardian denies using tobacco. - Ebola Screening: : No symptoms or risks identified at this time. ROS: 03:22 Eyes: Negative for injury, pain, redness, and discharge, ENT: Negative for injury, pkl pain, and discharge, Neck: Negative for injury, pain, and swelling, Cardiovascular: Negative for chest pain, palpitations, and edema, Respiratory: Negative for shortness of breath, cough, wheezing, and pleuritic chest pain, Abdomen/GI: Negative for abdominal pain, nausea, vomiting, diarrhea, and constipation, Back: Negative for injury and pain, : Negative for injury, bleeding, discharge, and swelling, MS/Extremity: Negative for injury and deformity, Skin: Negative for injury, rash, and discoloration. 03:22 Neuro: Positive for headache. Exam: 03:22 Head/Face: Normocephalic, atraumatic. Eyes: Pupils equal round and reactive to light, pkl extra-ocular motions intact. Lids and lashes normal. Conjunctiva and sclera are non-icteric and not injected. Cornea within normal limits. Periorbital areas with no swelling, redness, or edema. ENT: Nares patent. No nasal discharge, no septal abnormalities noted. Tympanic membranes are normal and external auditory canals are clear. Oropharynx with no redness, swelling, or masses, exudates, or evidence of obstruction, uvula midline. Mucous membranes moist. Neck: Trachea midline, no thyromegaly or masses palpated, and no cervical lymphadenopathy. Supple, full range of motion without nuchal rigidity, or vertebral point tenderness. No Meningismus. Chest/axilla: Normal chest wall appearance and motion. Nontender with no deformity. No lesions are appreciated. Cardiovascular: Regular rate and rhythm with a normal S1 and S2. No gallops, murmurs, or rubs. Normal PMI, no JVD. No pulse deficits. Respiratory: Lungs have equal breath sounds bilaterally, clear to auscultation and percussion. No rales, rhonchi or wheezes noted. No increased work of breathing, no retractions or nasal flaring. Abdomen/GI: Soft, non-tender, with normal bowel sounds. No distension or tympany. No guarding or rebound. No evidence of tenderness throughout. Back: No spinal tenderness. No costovertebral tenderness. Full range of motion. Skin: Warm, dry with normal turgor. Normal color with no rashes, no lesions, and no evidence of cellulitis. MS/ Extremity: Pulses equal, no cyanosis. Neurovascular intact. Full, normal range of motion. Neuro: Awake and alert, GCS 15, oriented to person, place, time, and situation. Cranial nerves II-XII grossly intact. Motor strength 5/5 in all extremities. Sensory grossly intact. Cerebellar exam normal. Normal gait. Vital Signs: 03:18 BP 226 / 115; Pulse 95; Resp 20; Temp 98.7; Pulse Ox 98% on R/A; Weight 56.7 kg; Height tl2 5 ft. 7 in. (170.18 cm); Pain 7/10; 04:37 BP 225 / 107; Pulse 91; Resp 16; Pulse Ox 98% ; Pain 6/10; tl1 05:05 BP 183 / 94; Pulse 75; Resp 17; Temp 98.6; Pulse Ox 100% ; Pain 5/10; tl1 05:38 BP 170 / 83; Pulse 66; Resp 14; Temp 98.6; Pulse Ox 100% ; Pain 2/10; tl1 03:18 Body Mass Index 19.58 (56.70 kg, 170.18 cm) tl2 MDM: 03:09 Patient medically screened. pkl 03:45 Data reviewed: vital signs, nurses notes. pkl 05/31 04:33 Order name: CT Head Brain wo Cont pkl Administered Medications: 03:30 Drug: cloNIDine 0.1 mg Route: PO; tl2 05:44 Follow up: Response: No adverse reaction; Marked relief of symptoms; Blood pressure is tl1 lowered 03:31 Drug: UltRAM 50 mg Route: PO; tl2 05:44 Follow up: Response: No adverse reaction; Marked relief of symptoms; Pain is decreased tl1 04:07 Drug: cloNIDine 0.1 mg Route: PO; tl2 05:44 Follow up: Response: No adverse reaction; Marked relief of symptoms; Blood pressure is tl1 lowered 04:35 Drug: Demerol 25 mg Route: IM; Site: left gluteus; tl2 05:43 Follow up: Response: No adverse reaction; Marked relief of symptoms; Pain is decreased tl1 Disposition: 05/31/18 03:46 Discharged to Home. Impression: Uncontrolled hypertension. Migraine. - Condition is Stable. - Prescriptions for Ultram 50 mg Oral Tablet - take 1 tablet by ORAL route 2 times per day As needed; 20 tablet. - Medication Reconciliation Form, Thank You Letter, Antibiotic Education, Prescription Opioid Use form. - Follow up: Private Physician; When: 2 - 3 days; Reason: Re-evaluation by your physician. - Problem is new. - Symptoms have improved. Signatures: Dispatcher [employer] EDShen Ross MD MD pkl Ana Lomeli RN RN tl1 Adia Lopez RN RN tl2 Corrections: (The following items were deleted from the chart) 04:37 03:18 Allergies: Meperidine; tl2 tl1 05:55 03:46 05/31/2018 03:46 Discharged to Home. Impression: Uncontrolled hypertension. tl1 Migraine. Condition is Stable. Forms are Medication Reconciliation Form, Thank You Letter, Antibiotic Education, Prescription Opioid Use. Follow up: Private Physician; When: 2 - 3 days; Reason: Re-evaluation by your physician. Problem is new. Symptoms have improved. pkl
--- NOTE | 2018-05-31 03:47 | ER ---
Nurse's Notes [facility] Name: Gloria Armenta Age: 82 yrs Sex: Female : 1935 Arrival Date: 05/31/2018 Time: 03:03 Bed 14 Private MD: Diagnosis: Uncontrolled hypertension. Migraine Presentation: 05/31 03:14 Presenting complaint: Patient states: Migraine since 1200 yesterday. Pt ran out of tl2 Tylenol #3 and OTC pain medications are not working. PT denies dizziness. Transition of care: patient was not received from another setting of care. Onset of symptoms was May 30, 2018 at 12:00. Risk Assessment: Do you want to hurt yourself or someone else? Patient reports no desire to harm self or others. Initial Sepsis Screen: Does the patient meet any 2 criteria? No. Patient's initial sepsis screen is negative. Does the patient have a suspected source of infection? No. Patient's initial sepsis screen is negative. Care prior to arrival: None. 03:14 Method Of Arrival: Ambulatory tl2 03:14 Acuity: AURELIO 4 tl2 Triage Assessment: 03:18 General: Appears in no apparent distress. uncomfortable, Behavior is calm, cooperative, tl2 appropriate for age. Pain: Complains of pain in headache Pain does not radiate. Neuro: Level of Consciousness is awake, alert, obeys commands, Oriented to person, place, time, situation, Speech is normal, Facial symmetry appears normal. Cardiovascular: Denies chest pain. Respiratory: Airway is patent Respiratory effort is even, unlabored, Respiratory pattern is regular, symmetrical. GI: No signs and/or symptoms were reported involving the gastrointestinal system. : No signs and/or symptoms were reported regarding the genitourinary system. Derm: Skin is pink, warm \T\ dry. Historical: - Allergies: 03:18 Aspirin; tl2 03:18 Cefaclor; tl2 03:18 Celecoxib; tl2 03:18 Cephalexin; tl2 03:18 CEPHALOSPORINS; tl2 03:18 Chlorpromazine; tl2 03:18 chlorpromazine HCl; tl2 03:18 esomeprazole mag; tl2 03:18 Ketorolac; tl2 03:18 ketorolac tromethamine; tl2 03:18 Morphine; tl2 03:18 prochlorperazine Edisylate; tl2 03:18 Prochlorperazine Maleate; tl2 03:18 Rofecoxib; tl2 03:18 Sulfa (Sulfonamide Antibiotics); tl2 03:18 SUMATRIPTAN; tl2 03:18 Sumatriptan Succinate; tl2 - Home Meds: 03:18 Tylenol #3 Oral [Active]; tl2 - PMHx: 03:18 Chronic headaches; Chronic pain; Hypertension; tl2 - Immunization history:: Adult Immunizations. - Social history:: Smoking status: Patient/guardian denies using tobacco. - Ebola Screening: : No symptoms or risks identified at this time. Screenin:21 Abuse screen: Denies threats or abuse. Nutritional screening: No deficits noted. tl2 Tuberculosis screening: No symptoms or risk factors identified. Fall Risk Gait- Weak (10 pts.). Assessment: 03:45 Pain: Complains of pain in right presybeterian and forehead Pain currently is 7 out of 10 on a tl1 pain scale. Neuro: Level of Consciousness is awake, alert, obeys commands, Oriented to person, place, time, situation, Ruling Machine Feeder are equal bilaterally Moves all extremities. Gait is steady, Speech is normal. Neuro: Reports headache frontal area. Cardiovascular: Denies chest pain. Respiratory: Airway is patent Trachea midline Respiratory effort is even, unlabored, Respiratory pattern is regular, Breath sounds are clear bilaterally. GI: Abdomen is non-distended, Bowel sounds present X 4 quads. Abd is soft and non tender X 4 quads. : No signs and/or symptoms were reported regarding the genitourinary system. EENT: No signs and/or symptoms were reported regarding the EENT system. Derm: No signs and/or symptoms reported regarding the dermatologic system. Musculoskeletal: No signs and/or symptoms reported regarding the musculoskeletal system. 04:24 General: Appears in no apparent distress. uncomfortable, Behavior is calm, cooperative, tl1 appropriate for age. 04:39 Reassessment: due to elevated blood pressure ER physician ordered head CT prior to tl1 discharge so discharge has been delayed. Vital Signs: 03:18 BP 226 / 115; Pulse 95; Resp 20; Temp 98.7; Pulse Ox 98% on R/A; Weight 56.7 kg; Height tl2 5 ft. 7 in. (170.18 cm); Pain 7/10; 04:37 BP 225 / 107; Pulse 91; Resp 16; Pulse Ox 98% ; Pain 6/10; tl1 05:05 BP 183 / 94; Pulse 75; Resp 17; Temp 98.6; Pulse Ox 100% ; Pain 5/10; tl1 05:38 BP 170 / 83; Pulse 66; Resp 14; Temp 98.6; Pulse Ox 100% ; Pain 2/10; tl1 03:18 Body Mass Index 19.58 (56.70 kg, 170.18 cm) tl2 ED Course: 03:03 Patient arrived in ED. ds1 03:09 Shen Hampton MD is Attending Physician. pkl 03:15 Triage completed. tl2 03:18 Arm band placed on right wrist. tl2 03:21 Patient has correct armband on for positive identification. Bed in low position. Call tl2 light in reach. Side rails up X 1. 04:24 Ana Lomeli, NAT is Primary Nurse. tl1 04:26 No provider procedures requiring assistance completed. Patient did not have IV access tl1 during this emergency room visit. 04:57 CT Head Brain wo Cont In Process Unspecified. EDMS 04:57 CT completed. Patient tolerated procedure well. Patient moved to CT via wheelchair. Patient moved back from CT. Administered Medications: 03:30 Drug: cloNIDine 0.1 mg Route: PO; tl2 05:44 Follow up: Response: No adverse reaction; Marked relief of symptoms; Blood pressure is tl1 lowered 03:31 Drug: UltRAM 50 mg Route: PO; tl2 05:44 Follow up: Response: No adverse reaction; Marked relief of symptoms; Pain is decreased tl1 04:07 Drug: cloNIDine 0.1 mg Route: PO; tl2 05:44 Follow up: Response: No adverse reaction; Marked relief of symptoms; Blood pressure is tl1 lowered 04:35 Drug: Demerol 25 mg Route: IM; Site: left gluteus; tl2 05:43 Follow up: Response: No adverse reaction; Marked relief of symptoms; Pain is decreased tl1 Outcome: 03:46 Discharge ordered by . pkl 05:54 Discharged to home via wheelchair, with family. tl1 05:54 Condition: good 05:54 Discharge instructions given to patient, Instructed on discharge instructions, follow up and referral plans. medication usage, Demonstrated understanding of instructions, follow-up care, medications, Prescriptions given X 1. 05:55 Patient left the ED. tl1 Signatures: Dispatcher [employer] EDMS Shen Hampton MD MD pkl Hagler, Ervin eh Sanford, Demi ds1 Ana Lomeli RN RN tl1 Adia Lopez RN RN tl2 Corrections: (The following items were deleted from the chart) 04:37 03:18 Allergies: Meperidine; tl2 tl1
[2018-05-31] MEDS ORDERED: MEPERIDINE HCL 25 MG/0.5 ML ONE (04:36)
[2018-05-31 06:01] VITALS: TEMP 98.6; O2SAT 100
[2018-05-31 06:03] VITALS: BP 170/83
--- NOTE | 2018-05-31 08:09 | RAD REPORT ---
EXAM DESCRIPTION: CT - Head Brain Wo Cont - 05/31/2018 7:03 am CLINICAL HISTORY: hypertension;Headache COMPARISON: Head Brain Wo Cont dated 12/16/2017; Head Brain Wo Cont dated 06/20/2017 TECHNIQUE: All CT scans are performed using dose optimization technique as appropriate and may inclu de automated exposure control or mA/KV adjustment according to patient size. FINDINGS: No intracranial hemorrhage, hydrocephalus or extra-axial fluid collection.Mild generalized brain atrophy is present with mild periventricular and deep white matter chronic microvascular ische sincere changes.No areas of brain edema or evidence of midline shift. The paranasal sinuses and mastoids are clear. The calvarium is intact. IMPRESSION: No acute intracranial abnormality. A preliminary written report was provided at the time of the study, and the report was reviewed prio r to final dictation.
== END 2018-05-31 05:55 | disposition home or self-care (01) ==
LOC: ER 03:02
DX: I10 Essential (primary) hypertension (principal); G43.909 Migraine, unspecified, not intractable, without status migrainosus; Z88.6 Allergy status to analgesic agent; Z88.1 Allergy status to other antibiotic agents; Z88.3 Allergy status to other anti-infective agents; Z88.2 Allergy status to sulfonamides
CPT/HCPCS: 70450; 96372; 99284; J2175

== ENCOUNTER 2018-06-05 01:15 | Emergency (ER) | payer OTHER ==
--- OUTSIDE RECORDS SUMMARY | 2018-06-05 01:17 | XMS REPORT | Clinical Summary ---
:1935 Author Organization [facility] Address [address] [place] [address] Phone Care Team Providers Name Role Phone [...] type;Hypothyroidism, unspecified type;Acute cystitis without hematuria after 06/04/2017 Social History Tobacco Use Types Packs/Day Years Used Date Never Smoker Smokeless Tobacco: Never Used Sex Assigned at Date Recorded Not on file Last Filed Vital Signs Vital Sign Reading Time Taken Blood Pressure 157/77 12/20/2017 11:34 AM RN TRAINING Pulse 76 12/20/2017 11:34 AM RN TRAINING Temperature 36.5 C (97.7 F) 12/20/2017 11:34 AM RN TRAINING Respiratory Rate 18 12/20/2017 11:34 AM RN TRAINING Oxygen Saturation 98% 12/20/2017 11:34 AM RN TRAINING Inhaled Oxygen Concentration - - Weight 54 kg (119 lb) 12/20/2017 5:00 AM RN TRAINING Height 157.5 cm (5' 2") 12/16/2017 5:25 PM RN TRAINING Body Mass Index 21.77 12/20/2017 5:00 AM RN TRAINING Plan of Treatment Not on file Results RHYTHM STRIP - SCAN (12/21/2017 2:41 PM)Magnesium (12/19/2017 7:31 AM)Only the most recent of2 resultswithin the time period is included. Component Value Ref Range Magnesium 2.2Comment: Specimen slightly hemolyzed 1.6 - 2.6 mg/dL Specimen Performing Laboratory Blood - Line, Venous [facility] [address] [address] Basic Metabolic Panel (12/19/2017 7:31 AM)Only the [...] Specimen Performing Laboratory Blood - Line, Venous [address] [address] CBC with platelet count + automated diff [...] Specimen Performing Laboratory Blood - Line, Venous [address] [address] CBC with platelet count + automated diff (12/19/2017 6:58 AM)Only the most recent of4 resultswithin the time period is included. Specimen Performing Laboratory Blood Narrative The following orders were created for panel order CBC with platelet count + automated diff. Procedure Abnormality Status --------- ------ CBC with platelet count ...[[id number]]AbnormalFinal result Please view results for these tests [...] to 12/17/2017 DATE OF REPORT 12/16/17 ACC: [id number] Start time: 22:43 Stop time: 06:45 ICD-10: G93.40 CPT Code: 62133 HISTORY: 82 yo F with history of chronic pain, chronic Lozano, osteoporosis, HTN, who was transferred from [facility] for AMS and seizures. UDS + [...] External Ris In - 12/17/2017 4:19 PM RN TRAINING Addendum Begins Addendum: Start time: 0645 Stop [...] to 12/17/2017 DATE OF REPORT 12/16/17 ACC: [id number] Start time: 22:43 Stop time: 06:45 ICD-10: G93.40 CPT Code: 66617 HISTORY: 82 yo F with history of [...] TEST: 12/16/17 DATE OF REPORT 12/16/17 ACC: [id number] Start time: 22:22 Stop time: 22:43 ICD-10: G93.40 CPT Code: 13398 HISTORY: 82 yo F with history of [...] Galeas MD Epilepsy Fellow Nabila Sanchez M.D., [facility] Professor of Neurology Director, [facility] Epilepsy [place], [facility] Neurophysiology Lab Procedure Note Interface, External Ris In - 12/16/2017 11:06 PM RN TRAINING DATE OF TEST: 12/16/17 DATE OF REPORT 12/16/17 ACC: [id number] Start time: 22:22 Stop time: 22:43 ICD-10: G93.40 CPT Code: 02447 HISTORY: 82 yo F with history of chronic pain, chronic Lozano, osteoporosis, HTN, who was transferred from [facility] for AMS and seizures. UDS + [...] Galeas MD Epilepsy Fellow Nabila Sanchez M.D., [facility] Professor of Neurology Director, [facility] Epilepsy [place], [facility] [...] MD Report Verified Date/Time:12/16/2017 21:41:51 Reading Location: [address] Reading Room Procedure Note Interface, External Ris In - 12/16/2017 9:44 PM RN TRAINING FINAL REPORT INDICATION: concern for PNA COMPARISON: None TECHNIQUE: Single frontal view of the chest. FINDINGS: Limited by severe scoliosis and contractures. Lungs and pleura: Clear lungs. No effusion. Heart and mediastinum: Normal heart size. Unremarkable mediastinal contours. Osseous structures: No acute abnormality. Other: None. IMPRESSION: No acute intrathoracic abnormality. Signed: JR Lamb Robert MD Report Verified Date/Time: 12/16/2017 21:41:51 Reading Location: [address] Reading Room Urine culture (12/16/2017 8:45 PM) Component Value Ref Range Result Result >100,000 col/mL Citrobacter braakii (A) Specimen Performing Laboratory Urine - Urine, [place] [address] [address] Organism Antibiotic Method Susceptibility Citrobacter braakii Amikacin [...] 15.8 >=7.0 ng/mL Specimen Performing Laboratory Blood [address] [address] TSH/Free T4 If Indicated (12/16/2017 6:50 PM) Component Value Ref Range TSH 3.15 0.35 - 4.94 uIU/mL Specimen Performing Laboratory Blood [address] [address] Iron, TIBC, % sat. (without ferritin) (12/16/2017 6:50 PM) Component Value Ref Range Iron 24 (L) 40 - 160 ug/dL TIBC 309 250 - 450 ug/dL Iron % Saturation 8 (L) 20 - 55 % Specimen Performing Laboratory [address] [address] Vitamin D, 25-Hydroxy (12/16/2017 6:50 PM) Component Value Ref Range Vitamin D 25-Hydroxy 8.2 6.6 - 49.9 ng/mL Specimen Performing Laboratory Blood [address] [address] Narrative Effective 09/05/2017: Reference Range Change New: 6.6-49.9 ng/mL Previous: 13.0-47.8 ng/mL Recommended Vitamin D Target Range: 30.0-40.0 ng/mL Blood culture (12/16/2017 6:50 PM) Component Value Ref Range Result No growth in 5 days Specimen Performing Laboratory Blood - Arm, Right [address] [address] Urinalysis w/ Microscopic (12/16/2017 6:50 PM) Component Value Ref Range Color, UA Yellow Clarity, UA Clear Specific [place], UA 1.017 1.001 - 1.035 pH, UA [...] Specimen Performing Laboratory Urine - Urine, [place] [address] [address] Ferritin (12/16/2017 6:50 PM) Component Value Ref Range Ferritin 36 5 - 275 ng/mL Specimen Performing Laboratory Blood [address] [address] after 06/04/2017
--- OUTSIDE RECORDS SUMMARY | 2018-06-05 01:18 | XMS REPORT ---
:1935 [facility] Address [address] [place] [address] [address] [place] [address] Care Team Providers Name Role Phone NICHOLE PEREZ Unavailable Unavailable Problems This patient has no known problems. Allergies, Adverse Reactions, Alerts This patient has no known allergies or adverse reactions. Medications This patient has no known medications. Results Test Description Test Time Test Comments Text Results Atomic Results Result Comments BLOOD CULTURE 2017-12-22 05:01:00 Test Item Value Reference Range Comments CULTURE (BEAKER) (test lfrn=6973) No growth in 5 days [id number] 11:31:00 Test Item Value Reference Range Comments MAGNESIUM (BEAKER) (test 2.2 mg/dL 1.6-2.6 Specimen slightly hemolyzed igxf=026) BASIC METABOLIC [id number] 11:31:00 Test Item Value Reference Range Comments SODIUM (BEAKER) (test 139 meq/L 136-145 khqx=323) POTASSIUM (BEAKER) (test 4.0 meq/L 3.5-5.1 Specimen slightly ntbm=569) hemolyzed CHLORIDE (BEAKER) (test 104 meq/L 98-107 jndg=209) CO2 (BEAKER) (test 27 meq/L 22-29 trgy=585) BLOOD UREA NITROGEN 7 mg/dL 7-21 (BEAKER) (test opuc=181) CREATININE (BEAKER) (test 0.60 mg/dL 0.57-1.25 Specimen slightly roje=796) hemolyzed GLUCOSE RANDOM (BEAKER) 113 mg/dL 70-105 (test mjrw=342) CALCIUM (BEAKER) (test 8.3 mg/dL 8.4-10.2 hgwf=124) EGFR (BEAKER) (test 95 mL/min/1.73 sq m ESTIMATED GFR IS NOT tkwa=1014) ACCURATE CREATININE CLEARANCE IN PREDICTING GLOMERULAR FILTRATION RATE. ESTIMATED GFR IS NOT APPLICABLE FOR DIALYSIS PATIENTS. URINE [id number] 09:10:00 Test Item Value Reference Range Comments CULTURE (BEAKER) (test spgs=0408) Amikacin (test code=1) Aztreonam (test code=32) Cefepime (test code=51) Cefoxitin (test code=68) Ceftazidime (test code=27) Ceftriaxone (test code=52) Ertapenem (test code=38) Gentamicin (test code=18) Levofloxacin (test code=22) Meropenem (test code=34) Nitrofurantoin (test code=23) Piperacillin + Tazobactam (test code=29) Tetracycline (test code=2) Tobramycin (test code=25) Trimethoprim + Sulfamethoxazole (test code=47) CULTURE (BEAKER) (test dijg=0248) >100,000 col/mL Citrobacter braakii CBC W/PLT COUNT & AUTO [id number] 07:05:00 Test Item Value Reference Range Comments WHITE BLOOD CELL COUNT (BEAKER) (test zhat=632) 7.5 K/ L 3.5-10.5 RED BLOOD CELL COUNT (BEAKER) (test egfc=140) 4.30 M/ L 3.93-5.22 HEMOGLOBIN (BEAKER) (test tazy=391) 10.1 GM/DL 11.2-15.7 HEMATOCRIT (BEAKER) (test qamc=768) 32.6 % 34.1-44.9 MEAN CORPUSCULAR VOLUME (BEAKER) (test hyyo=414) 75.8 fL 79.4-94.8 MEAN CORPUSCULAR HEMOGLOBIN (BEAKER) (test 23.5 pg 25.6-32.2 bsrw=750) MEAN CORPUSCULAR HEMOGLOBIN CONC (BEAKER) (test 31.0 GM/DL 32.2-35.5 dmwp=298) RED CELL DISTRIBUTION WIDTH (BEAKER) (test 14.1 % 11.7-14.4 wuhn=809) PLATELET COUNT (BEAKER) (test vekq=506) 289 K/CU MM 150-450 MEAN PLATELET VOLUME (BEAKER) (test drct=025) 9.1 fL 9.4-12.3 NUCLEATED RED BLOOD CELLS (BEAKER) (test 0 /100 WBC 0-0 pnam=945) NEUTROPHILS RELATIVE PERCENT (BEAKER) (test 73 % ivwi=245) LYMPHOCYTES RELATIVE PERCENT (BEAKER) (test 15 % gifb=762) MONOCYTES RELATIVE PERCENT (BEAKER) (test 9 % qzaf=301) EOSINOPHILS RELATIVE PERCENT (BEAKER) (test 2 % qbvu=467) BASOPHILS RELATIVE PERCENT (BEAKER) (test 0 % wmng=363) NEUTROPHILS ABSOLUTE COUNT (BEAKER) (test 5.50 K/ L 1.56-6.13 jvoc=023) LYMPHOCYTES ABSOLUTE COUNT (BEAKER) (test 1.12 K/ L 1.18-3.74 viri=716) MONOCYTES ABSOLUTE COUNT (BEAKER) (test 0.67 K/ L 0.24-0.36 gykz=124) EOSINOPHILS ABSOLUTE COUNT (BEAKER) (test 0.16 K/ L 0.04-0.36 xgox=109) BASOPHILS ABSOLUTE COUNT (BEAKER) (test 0.03 K/ L 0.01-0.08 wmkq=025) IMMATURE GRANULOCYTES-RELATIVE PERCENT (BEAKER) 0 % 0-1 (test orij=8580) [id number] 08:15:00 Test Item Value Reference Range Comments MAGNESIUM (BEAKER) (test qflm=054) 1.7 mg/dL 1.6-2.6 CBC W/PLT COUNT & AUTO [id number] 04:24:00 Test Item Value Reference Range Comments WHITE BLOOD CELL COUNT (BEAKER) (test ycjv=339) 6.7 K/ L 3.5-10.5 RED BLOOD CELL COUNT (BEAKER) (test eahf=556) 3.69 M/ L 3.93-5.22 HEMOGLOBIN (BEAKER) (test hbta=611) 8.6 GM/DL 11.2-15.7 HEMATOCRIT (BEAKER) (test dmkl=447) 28.5 % 34.1-44.9 MEAN CORPUSCULAR VOLUME (BEAKER) (test wctx=015) 77.2 fL 79.4-94.8 MEAN CORPUSCULAR HEMOGLOBIN (BEAKER) (test 23.3 pg 25.6-32.2 uwps=191) MEAN CORPUSCULAR HEMOGLOBIN CONC (BEAKER) (test 30.2 GM/DL 32.2-35.5 uqxt=539) RED CELL DISTRIBUTION WIDTH (BEAKER) (test 13.7 % 11.7-14.4 pxbi=546) PLATELET COUNT (BEAKER) (test vbin=495) 249 K/CU MM 150-450 MEAN PLATELET VOLUME (BEAKER) (test qkgu=772) 8.8 fL 9.4-12.3 NUCLEATED RED BLOOD CELLS (BEAKER) (test 0 /100 WBC 0-0 spsd=488) NEUTROPHILS RELATIVE PERCENT (BEAKER) (test 64 % ffah=122) LYMPHOCYTES RELATIVE PERCENT (BEAKER) (test 21 % pqgb=827) MONOCYTES RELATIVE PERCENT (BEAKER) (test 12 % fvhx=244) EOSINOPHILS RELATIVE PERCENT (BEAKER) (test 3 % jqbn=628) BASOPHILS RELATIVE PERCENT (BEAKER) (test 0 % bdwf=347) NEUTROPHILS ABSOLUTE COUNT (BEAKER) (test 4.23 K/ L 1.56-6.13 ymon=419) LYMPHOCYTES ABSOLUTE COUNT (BEAKER) (test 1.39 K/ L 1.18-3.74 ndbz=467) MONOCYTES ABSOLUTE COUNT (BEAKER) (test 0.80 K/ L 0.24-0.36 nxck=984) EOSINOPHILS ABSOLUTE COUNT (BEAKER) (test 0.20 K/ L 0.04-0.36 nfje=839) BASOPHILS ABSOLUTE COUNT (BEAKER) (test 0.02 K/ L 0.01-0.08 miuu=533) IMMATURE GRANULOCYTES-RELATIVE PERCENT (BEAKER) 0 % 0-1 (test nurr=0490) BASIC METABOLIC [id number] 04:19:00 Test Item Value Reference Range Comments SODIUM (BEAKER) (test 139 meq/L 136-145 yppo=539) POTASSIUM (BEAKER) (test 3.1 meq/L 3.5-5.1 qpla=903) CHLORIDE (BEAKER) (test 103 meq/L 98-107 lzbl=914) CO2 (BEAKER) (test 29 meq/L 22-29 cbzk=857) BLOOD UREA NITROGEN 12 mg/dL 7-21 (BEAKER) (test jiki=612) CREATININE (BEAKER) (test 0.65 mg/dL 0.57-1.25 xsev=278) GLUCOSE RANDOM (BEAKER) 91 mg/dL 70-105 (test hslw=924) CALCIUM (BEAKER) (test 8.1 mg/dL 8.4-10.2 owrk=995) EGFR (BEAKER) (test 87 mL/min/1.73 sq m ESTIMATED GFR IS NOT rpvf=1038) ACCURATE CREATININE CLEARANCE IN PREDICTING GLOMERULAR FILTRATION RATE. ESTIMATED GFR IS NOT APPLICABLE FOR DIALYSIS PATIENTS. EEG MONITORING WITH VIDEO RECORDING EACH 24 [id number] 16:19:00Addendum BeginsAddendum:Start time: 0645Stop time: 1613 There [...] 12/16/2017 to DATE OF REPORT 12/16/17 ACC: [id number] Start time: 22: 43 Stop time: 06:45 ICD-10: G93.40 CPT Code: 81419 HISTORY: 82 yo F with history of [...] MS Epilepsy/Neurophysiology Attending [facility] METABOLIC [id number] 04:38:00 Test Item Value Reference Range Comments SODIUM (BEAKER) (test 142 meq/L 136-145 klso=134) POTASSIUM (BEAKER) (test 3.0 meq/L 3.5-5.1 eshb=353) CHLORIDE (BEAKER) (test 104 meq/L 98-107 schn=775) CO2 (BEAKER) (test 31 meq/L 22-29 zzyp=219) BLOOD UREA NITROGEN 13 mg/dL 7-21 (BEAKER) (test xntw=886) CREATININE (BEAKER) (test 0.64 mg/dL 0.57-1.25 vtsd=857) GLUCOSE RANDOM (BEAKER) 122 mg/dL 70-105 (test qztx=621) CALCIUM (BEAKER) (test 8.1 mg/dL 8.4-10.2 pknw=529) EGFR (BEAKER) (test 89 mL/min/1.73 sq m ESTIMATED GFR IS NOT mvyi=4433) ACCURATE CREATININE CLEARANCE IN PREDICTING GLOMERULAR FILTRATION RATE. ESTIMATED GFR IS NOT APPLICABLE FOR DIALYSIS PATIENTS. CBC W/PLT COUNT & AUTO [id number] 04:03:00 Test Item Value Reference Range Comments WHITE BLOOD CELL COUNT (BEAKER) (test xcbt=590) 8.6 K/ L 3.5-10.5 RED BLOOD CELL COUNT (BEAKER) (test xsuf=080) 3.94 M/ L 3.93-5.22 HEMOGLOBIN (BEAKER) (test ruom=887) 9.1 GM/DL 11.2-15.7 HEMATOCRIT (BEAKER) (test bfya=367) 30.3 % 34.1-44.9 MEAN CORPUSCULAR VOLUME (BEAKER) (test lxrr=014) 76.9 fL 79.4-94.8 MEAN CORPUSCULAR HEMOGLOBIN (BEAKER) (test 23.1 pg 25.6-32.2 ovxo=658) MEAN CORPUSCULAR HEMOGLOBIN CONC (BEAKER) (test 30.0 GM/DL 32.2-35.5 mjdb=355) RED CELL DISTRIBUTION WIDTH (BEAKER) (test 13.4 % 11.7-14.4 agqh=162) PLATELET COUNT (BEAKER) (test gruv=255) 287 K/CU MM 150-450 MEAN PLATELET VOLUME (BEAKER) (test hipq=572) 8.7 fL 9.4-12.3 NUCLEATED RED BLOOD CELLS (BEAKER) (test 0 /100 WBC 0-0 exkc=890) NEUTROPHILS RELATIVE PERCENT (BEAKER) (test 74 % tdrr=204) LYMPHOCYTES RELATIVE PERCENT (BEAKER) (test 16 % cutr=697) MONOCYTES RELATIVE PERCENT (BEAKER) (test 9 % fthx=028) EOSINOPHILS RELATIVE PERCENT (BEAKER) (test 1 % wsyt=147) BASOPHILS RELATIVE PERCENT (BEAKER) (test 0 % bdsw=988) NEUTROPHILS ABSOLUTE COUNT (BEAKER) (test 6.35 K/ L 1.56-6.13 pjzx=819) LYMPHOCYTES ABSOLUTE COUNT (BEAKER) (test 1.35 K/ L 1.18-3.74 osbb=453) MONOCYTES ABSOLUTE COUNT (BEAKER) (test 0.80 K/ L 0.24-0.36 njtf=891) EOSINOPHILS ABSOLUTE COUNT (BEAKER) (test 0.08 K/ L 0.04-0.36 yiyl=807) BASOPHILS ABSOLUTE COUNT (BEAKER) (test 0.03 K/ L 0.01-0.08 lmyj=288) IMMATURE GRANULOCYTES-RELATIVE PERCENT (BEAKER) 0 % 0-1 (test uvux=8213) EEG AWAKE AND [id number] 23:06:00For STAT EEG- after 5 PM weekdays, weekends and holidays, page the on-call dispenser operator Reason for exam:->seizure, AMSDATE OF TEST: 1/21/18DATE OF REPORT 12/16/17ACC: [id number]: [id number] time : 22:22Stop time: 22:43ICD-10: G93.40CPT Code: 85697 HISTORY: 82 yo F with history of [...] Fellow Nabila Sanchez M.D., FACNSProfessor of NeurologyDirector, [facility] [place] Neurophysiology Lab Electronically signed by: NABILA Foreman 12/16/2017 11:06 PMRAD, CHEST, 1 VIEW, NON [id number] 21:41: 00Reason for exam:->concern for PNAShould this [...] MDReport Verified Date/Time: 12/16/2017 21:41:51 Reading Location: [address] Reading Room [id number] 19:57:00 Test Item Value Reference Range Comments FERRITIN (BEAKER) (test hydb=878) 36 ng/mL 5-275 VITAMIN D, [id number] 19:57:00 Test Item Value Reference Range Comments VITAMIN D 25-OH (BEAKER) (test glxq=6691) 8.2 ng/mL 6.6-49.9 Effective 09/05/2017: Reference Range ChangeNew: 6.6-49.9 ng/mL Previous: 13.0 -47.8 ng/mLRecommended Vitamin D Target Range: 30.0-40.0 ng/mLTSH/FREE T4 IF [id number] 19:57:00 Test Item Value Reference Range Comments THYROID STIMULATING HORMONE (BEAKER) (test 3.15 uIU/mL 0.35-4.94 hvoo=061) VITAMIN B12 AND [id number] 19:57:00 Test Item Value Reference Range Comments VITAMIN B12 (BEAKER) (test gbwn=033) 376 pg/mL 213-816 FOLATE (BEAKER) (test fqyz=614) 15.8 ng/mL >=7.0 URINALYSIS W/ [id number] 19:28:00 Test Item Value Reference Range Comments COLOR (BEAKER) (test zvea=787) Yellow CLARITY (BEAKER) (test bjwh=000) Clear SPECIFIC GRAVITY UA (BEAKER) (test ooun=904) 1.017 1.001-1.035 PH UA (BEAKER) (test dvox=552) 5.5 5.0-8.0 PROTEIN UA (BEAKER) (test uwic=968) 50 mg/dL Negative GLUCOSE UA (BEAKER) (test kbxi=654) Negative Negative KETONES UA (BEAKER) (test gzkm=506) 40 mg/dL Negative BILIRUBIN UA (BEAKER) (test snnk=020) Negative Negative BLOOD UA (BEAKER) (test baqw=734) Negative Negative NITRITE UA (BEAKER) (test auhc=427) Negative Negative LEUKOCYTE ESTERASE UA (BEAKER) (test sfhl=524) Moderate Negative UROBILINOGEN UA (BEAKER) (test qdzq=522) 0.2 mg/dL 0.2-1.0 RBC UA (BEAKER) (test ilac=732) 1 /HPF WBC UA (BEAKER) (test tjeg=011) 55 /HPF BACTERIA (BEAKER) (test tisb=179) Occasional MUCUS (BEAKER) (test hlck=3144) Many HYALINE CASTS (BEAKER) (test pbzc=982) 10 /LPF SOURCE(BEAKER) (test szop=4082) Urine, [place] IRON, TIBC, % SAT. (WITHOUT FERRITIN)2017-12-16 19:21:00 Test Item Value Reference Range Comments IRON (BEAKER) (test fbjw=216) 24 ug/dL 40-160 TOTAL IRON BINDING CAPACITY (BEAKER) (test 309 ug/dL 250-450 kitu=750) IRON % SATURATION (2) (BEAKER) (test jsdv=4679) 8 % 20-55 BASIC METABOLIC [id number] 19:20:00 Test Item Value Reference Range Comments SODIUM (BEAKER) (test 141 meq/L 136-145 kmof=360) POTASSIUM (BEAKER) (test 4.0 meq/L 3.5-5.1 Specimen moderately exfm=446) hemolyzed CHLORIDE (BEAKER) (test 102 meq/L 98-107 xqvg=572) CO2 (BEAKER) (test 30 meq/L 22-29 urts=354) BLOOD UREA NITROGEN 12 mg/dL 7-21 (BEAKER) (test ztgz=080) CREATININE (BEAKER) (test 0.66 mg/dL 0.57-1.25 Specimen moderately uhsd=126) hemolyzed GLUCOSE RANDOM (BEAKER) 102 mg/dL 70-105 (test fiir=586) CALCIUM (BEAKER) (test 8.3 mg/dL 8.4-10.2 etih=712) EGFR (BEAKER) (test 86 mL/min/1.73 sq m ESTIMATED GFR IS NOT txhf=8924) ACCURATE CREATININE CLEARANCE IN PREDICTING GLOMERULAR FILTRATION RATE. ESTIMATED GFR IS NOT APPLICABLE FOR DIALYSIS PATIENTS. CBC W/PLT COUNT & AUTO [id number] 19:06:00 Test Item Value Reference Range Comments WHITE BLOOD CELL COUNT (BEAKER) (test ehbd=838) 8.2 K/ L 3.5-10.5 RED BLOOD CELL COUNT (BEAKER) (test ptqb=657) 4.05 M/ L 3.93-5.22 HEMOGLOBIN (BEAKER) (test ktbg=063) 9.4 GM/DL 11.2-15.7 HEMATOCRIT (BEAKER) (test dsmb=414) 30.9 % 34.1-44.9 MEAN CORPUSCULAR VOLUME (BEAKER) (test pvwh=203) 76.3 fL 79.4-94.8 MEAN CORPUSCULAR HEMOGLOBIN (BEAKER) (test 23.2 pg 25.6-32.2 xlbm=860) MEAN CORPUSCULAR HEMOGLOBIN CONC (BEAKER) (test 30.4 GM/DL 32.2-35.5 jovf=694) RED CELL DISTRIBUTION WIDTH (BEAKER) (test 13.6 % 11.7-14.4 uzoz=612) PLATELET COUNT (BEAKER) (test nmjk=408) 301 K/CU MM 150-450 MEAN PLATELET VOLUME (BEAKER) (test azsu=116) 8.7 fL 9.4-12.3 NUCLEATED RED BLOOD CELLS (BEAKER) (test 0 /100 WBC 0-0 yzkj=626) NEUTROPHILS RELATIVE PERCENT (BEAKER) (test 78 % xsvx=735) LYMPHOCYTES RELATIVE PERCENT (BEAKER) (test 13 % blhn=913) MONOCYTES RELATIVE PERCENT (BEAKER) (test 9 % digq=263) EOSINOPHILS RELATIVE PERCENT (BEAKER) (test 1 % nshy=190) BASOPHILS RELATIVE PERCENT (BEAKER) (test 0 % thwr=816) NEUTROPHILS ABSOLUTE COUNT (BEAKER) (test 6.35 K/ L 1.56-6.13 hsom=623) LYMPHOCYTES ABSOLUTE COUNT (BEAKER) (test 1.06 K/ L 1.18-3.74 xckq=143) MONOCYTES ABSOLUTE COUNT (BEAKER) (test 0.70 K/ L 0.24-0.36 uzqp=192) EOSINOPHILS ABSOLUTE COUNT (BEAKER) (test 0.04 K/ L 0.04-0.36 yeun=731) BASOPHILS ABSOLUTE COUNT (BEAKER) (test 0.03 K/ L 0.01-0.08 qsde=409) IMMATURE GRANULOCYTES-RELATIVE PERCENT (BEAKER) 0 % 0-1 (test qikj=0642)
[2018-06-05] MEDS ORDERED: METHYLPREDNISOLONE 125 MG INJ ONE (01:48)
[2018-06-05] MEDS ORDERED: hydrOXYzine HCl 25 MG TAB ONE (01:48)
--- NOTE | 2018-06-05 02:02 | EDPHYS ---
Physician Documentation [facility] Name: Gloria Armenta Age: 82 yrs Sex: Female : 1935 Arrival Date: 06/05/2018 Time: 01:17 Bed 24 Private MD: ED Physician Tomas Lara HPI: 06/05 01:53 This 82 yrs old Female presents to ER via Wheelchair with complaints of jr8 Itching. 01:53 Patient stated that she is itching bad. Stated that she took Benadryl OTC without jr8 relief. Denies rash. Stated that she gets this with her allergies . Severity of symptoms: At their worst the symptoms were mild in the emergency department the symptoms are unchanged. The patient has experienced similar episodes in the past, several times. The patient has not recently seen a physician. Historical: - Allergies: 01:42 Sumatriptan Succinate; mg2 01:42 Prochlorperazine Maleate; mg2 01:42 Ketorolac; mg2 01:42 chlorpromazine HCl; mg2 01:42 Chlorpromazine; mg2 01:42 CEPHALOSPORINS; mg2 01:42 Celecoxib; mg2 01:42 Cephalexin; mg2 01:42 Cefaclor; mg2 01:42 esomeprazole mag; mg2 01:42 ketorolac tromethamine; mg2 01:42 Morphine; mg2 01:42 prochlorperazine Edisylate; mg2 01:42 Rofecoxib; mg2 01:42 Sulfa (Sulfonamide Antibiotics); mg2 01:42 SUMATRIPTAN; mg2 01:42 Aspirin; mg2 - Home Meds: 01:42 Tylenol #3 Oral [Active]; mg2 - PMHx: 01:42 Chronic headaches; Hypertension; Chronic pain; mg2 - PSHx: 01:42 Hysterectomy; Knee surgery; knee and leg surgery; sternal surgery; mg2 - Immunization history:: Pneumococcal vaccine is up to date, Flu vaccine is up to date. - Social history:: Smoking status: Patient/guardian denies using tobacco, Patient/guardian denies using alcohol, street drugs, IV drugs. - Ebola Screening: : No symptoms or risks identified at this time. ROS: 01:53 Eyes: Negative for injury, pain, redness, and discharge, ENT: Negative for injury, jr8 pain, and discharge, Neck: Negative for injury, pain, and swelling, Cardiovascular: Negative for chest pain, palpitations, and edema, Respiratory: Negative for shortness of breath, cough, wheezing, and pleuritic chest pain, Abdomen/GI: Negative for abdominal pain, nausea, vomiting, diarrhea, and constipation, Back: Negative for injury and pain, MS/Extremity: Negative for injury and deformity, Skin: Negative for injury, rash, and discoloration, Neuro: Negative for headache, weakness, numbness, tingling, and seizure. Exam: 01:53 Eyes: Pupils equal round and reactive to light, extra-ocular motions intact. Lids and jr8 lashes normal. Conjunctiva and sclera are non-icteric and not injected. Cornea within normal limits. Periorbital areas with no swelling, redness, or edema. ENT: Nares patent. No nasal discharge, no septal abnormalities noted. Tympanic membranes are normal and external auditory canals are clear. Oropharynx with no redness, swelling, or masses, exudates, or evidence of obstruction, uvula midline. Mucous membranes moist. Neck: Trachea midline, no thyromegaly or masses palpated, and no cervical lymphadenopathy. Supple, full range of motion without nuchal rigidity, or vertebral point tenderness. No Meningismus. Cardiovascular: Regular rate and rhythm with a normal S1 and S2. No gallops, murmurs, or rubs. Normal PMI, no JVD. No pulse deficits. Respiratory: Lungs have equal breath sounds bilaterally, clear to auscultation and percussion. No rales, rhonchi or wheezes noted. No increased work of breathing, no retractions or nasal flaring. Abdomen/GI: Soft, non-tender, with normal bowel sounds. No distension or tympany. No guarding or rebound. No evidence of tenderness throughout. Back: No spinal tenderness. No costovertebral tenderness. Full range of motion. Skin: Warm, dry with normal turgor. Normal color with no rashes, no lesions, and no evidence of cellulitis. MS/ Extremity: Pulses equal, no cyanosis. Neurovascular intact. Full, normal range of motion. Neuro: Awake and alert, GCS 15, oriented to person, place, time, and situation. Cranial nerves II-XII grossly intact. Motor strength 5/5 in all extremities. Sensory grossly intact. Cerebellar exam normal. Normal gait. Vital Signs: 01:42 BP 184 / 90; Pulse 95; Resp 18; Temp 98; Pulse Ox 100% ; Weight 58.97 kg; Height 5 ft. mg2 7 in. (170.18 cm); Pain 0/10; 01:42 Body Mass Index 20.36 (58.97 kg, 170.18 cm) mg2 MDM: 01:41 Patient medically screened. jr8 01:53 Data reviewed: vital signs, nurses notes, and as a result, I will discharge patient. jr8 Data interpreted: Pulse oximetry: on room air is 100 %. Interpretation: normal. Counseling: I had a detailed discussion with the patient and/or guardian regarding: the historical points, exam findings, and any diagnostic results supporting the discharge/admit diagnosis, the need for outpatient follow up, a family practitioner, to return to the emergency department if symptoms worsen or persist or if there are any questions or concerns that arise at home. Response to treatment: the patient's symptoms have markedly improved after treatment. Administered Medications: 01:41 CANCELLED (Physician Discretion): Atenolol 50 mg PO once jr8 01:49 Drug: SOLU-Medrol 125 mg Route: IM; Site: left deltoid; mg2 02:12 Follow up: Response: No adverse reaction; itchiness relieved mg2 01:49 Drug: Atarax 50 mg Route: PO; mg2 02:12 Follow up: Response: No adverse reaction; Other; itchiness relieved mg2 Disposition: 21:22 Co-signature as Attending Physician, Tomas Lara MD Available for consultation at [facility] all times. Disposition: 06/05/18 02:01 Discharged to Home. Impression: Pruritus. - Condition is Stable. - Discharge Instructions: Pruritus. - Medication Reconciliation Form, Thank You Letter, Antibiotic Education, Prescription Opioid Use form. - Follow up: Private Physician; When: 2 - 3 days; Reason: Recheck today's complaints, Continuance of care, Re-evaluation by your physician. - Problem is new. - Symptoms have improved. Signatures: Mitch Cooper PA PA jr8 Tomas Lara MD MD ps1 Viktor Saba RN RN mg2 Corrections: (The following items were deleted from the chart) 01:41 01:41 Atenolol 50 mg PO once ordered. jr8 jr8 02:13 02:01 06/05/2018 02:01 Discharged to Home. Impression: Pruritus. Condition is Stable. mg2 Forms are Medication Reconciliation Form, Thank You Letter, Antibiotic Education, Prescription Opioid Use. Follow up: Private Physician; When: 2 - 3 days; Reason: Recheck today's complaints, Continuance of care, Re-evaluation by your physician. Problem is new. Symptoms have improved. jr8
--- NOTE | 2018-06-05 02:02 | ER ---
Nurse's Notes [facility] Name: Gloria Armenta Age: 82 yrs Sex: Female : 1935 Arrival Date: 06/05/2018 Time: 01:17 Bed 24 Private MD: Diagnosis: Pruritus Presentation: 06/05 01:37 Presenting complaint: Patient states: itchiness in the whole body for the last 3 hours. mg2 she took benadryl 2 hours ago but to no relief. Transition of care: patient was not received from another setting of care. Onset of symptoms was June 04, 2018. Risk Assessment: Do you want to hurt yourself or someone else? Patient reports no desire to harm self or others. Initial Sepsis Screen: Does the patient meet any 2 criteria? No. Patient's initial sepsis screen is negative. Does the patient have a suspected source of infection? No. Patient's initial sepsis screen is negative. Care prior to arrival: None. 01:37 Method Of Arrival: Wheelchair mg2 01:37 Acuity: AURELIO 4 mg2 Historical: - Allergies: 01:42 Sumatriptan Succinate; mg2 01:42 Prochlorperazine Maleate; mg2 01:42 Ketorolac; mg2 01:42 chlorpromazine HCl; mg2 01:42 Chlorpromazine; mg2 01:42 CEPHALOSPORINS; mg2 01:42 Celecoxib; mg2 01:42 Cephalexin; mg2 01:42 Cefaclor; mg2 01:42 esomeprazole mag; mg2 01:42 ketorolac tromethamine; mg2 01:42 Morphine; mg2 01:42 prochlorperazine Edisylate; mg2 01:42 Rofecoxib; mg2 01:42 Sulfa (Sulfonamide Antibiotics); mg2 01:42 SUMATRIPTAN; mg2 01:42 Aspirin; mg2 - Home Meds: 01:42 Tylenol #3 Oral [Active]; mg2 - PMHx: 01:42 Chronic headaches; Hypertension; Chronic pain; mg2 - PSHx: 01:42 Hysterectomy; Knee surgery; knee and leg surgery; sternal surgery; mg2 - Immunization history:: Pneumococcal vaccine is up to date, Flu vaccine is up to date. - Social history:: Smoking status: Patient/guardian denies using tobacco, Patient/guardian denies using alcohol, street drugs, IV drugs. - Ebola Screening: : No symptoms or risks identified at this time. Screenin:53 Abuse screen: Denies threats or abuse. Denies injuries from another. Nutritional mg2 screening: No deficits noted. Tuberculosis screening: No symptoms or risk factors identified. Fall Risk No IV (0 pts). Assessment: 01:53 General: Appears uncomfortable, Behavior is calm, cooperative. Pain: Denies pain. mg2 Neuro: Level of Consciousness is awake, alert, obeys commands, Oriented to person, place, time. Cardiovascular: Capillary refill < 3 seconds Patient's skin is warm and dry. Respiratory: Airway is patent Respiratory effort is even, unlabored, Respiratory pattern is regular, symmetrical. GI: No signs and/or symptoms were reported involving the gastrointestinal system. : No signs and/or symptoms were reported regarding the genitourinary system. EENT: No signs and/or symptoms were reported regarding the EENT system. Derm: Skin is intact, Skin is pink, warm \T\ dry. normal. Derm: itchiness. Musculoskeletal: Vital Signs: 01:42 BP 184 / 90; Pulse 95; Resp 18; Temp 98; Pulse Ox 100% ; Weight 58.97 kg; Height 5 ft. mg2 7 in. (170.18 cm); Pain 0/10; 01:42 Body Mass Index 20.36 (58.97 kg, 170.18 cm) mg2 ED Course: 01:17 Patient arrived in ED. ds1 01:32 Viktor Saba, NAT is Primary Nurse. mg2 01:39 Triage completed. mg2 01:41 Mitch Cooper PA is PHCP. jr8 01:41 Tomas Lara MD is Attending Physician. jr8 01:43 Arm band placed on. mg2 01:55 Patient has correct armband on for positive identification. Bed in low position. mg2 02:13 No provider procedures requiring assistance completed. Patient did not have IV access mg2 during this emergency room visit. Administered Medications: 01:41 CANCELLED (Physician Discretion): Atenolol 50 mg PO once jr8 01:49 Drug: SOLU-Medrol 125 mg Route: IM; Site: left deltoid; mg2 02:12 Follow up: Response: No adverse reaction; itchiness relieved mg2 01:49 Drug: Atarax 50 mg Route: PO; mg2 02:12 Follow up: Response: No adverse reaction; Other; itchiness relieved mg2 Intake: Outcome: 02:01 Discharge ordered by MD. pereyra 02:13 Discharged to home ambulatory. mg2 02:13 Condition: stable 02:13 Discharge instructions given to patient, Instructed on discharge instructions, follow up and referral plans. Demonstrated understanding of instructions, follow-up care. 02:13 Patient left the ED. mg2 Signatures: Shena Bergman ds1 Mitch Cooper PA PA jr8 Viktor Saba, RN RN mg2
[2018-06-05 02:17] VITALS: BP 184/90; TEMP 98; O2SAT 100
== END 2018-06-05 02:13 | disposition home or self-care (01) ==
LOC: ER 01:15
DX: L29.9 Pruritus, unspecified (principal); I10 Essential (primary) hypertension; Z88.6 Allergy status to analgesic agent; Z88.1 Allergy status to other antibiotic agents; Z88.2 Allergy status to sulfonamides; Z88.8 Allergy status to other drugs, medicaments and biological substances
CPT/HCPCS: 96372; 99283; J2930

== ENCOUNTER 2018-07-09 01:12 | Emergency (ER) | payer OTHER ==
--- OUTSIDE RECORDS SUMMARY | 2018-07-09 01:16 | XMS REPORT ---
:1935 Author Organization [facility] Address [address] [place] [address] [address] [place] [address] Care Team Providers Name Role Phone NICHOLE PEREZ Unavailable Unavailable Problems This patient has no known problems. Allergies, Adverse Reactions, Alerts This patient has no known allergies or adverse reactions. Medications This patient has no known medications. Results Test Description Test Time Test Comments Text Results Atomic Results Result Comments BLOOD CULTURE 2017-12-22 05:01:00 Test Item Value Reference Range Comments CULTURE (BEAKER) (test hvbm=0132) No growth in 5 days [id number] 11:31:00 Test Item Value Reference Range Comments MAGNESIUM (BEAKER) (test 2.2 mg/dL 1.6-2.6 Specimen slightly hemolyzed qnmz=888) BASIC METABOLIC [id number] 11:31:00 Test Item Value Reference Range Comments SODIUM (BEAKER) (test 139 meq/L 136-145 ksqq=852) POTASSIUM (BEAKER) (test 4.0 meq/L 3.5-5.1 Specimen slightly bywa=380) hemolyzed CHLORIDE (BEAKER) (test 104 meq/L 98-107 rpsq=758) CO2 (BEAKER) (test 27 meq/L 22-29 nhcn=119) BLOOD UREA NITROGEN 7 mg/dL 7-21 (BEAKER) (test kfge=530) CREATININE (BEAKER) (test 0.60 mg/dL 0.57-1.25 Specimen slightly hmdw=595) hemolyzed GLUCOSE RANDOM (BEAKER) 113 mg/dL 70-105 (test ajwi=914) CALCIUM (BEAKER) (test 8.3 mg/dL 8.4-10.2 ldud=436) EGFR (BEAKER) (test 95 mL/min/1.73 sq m ESTIMATED GFR IS NOT fmgk=7577) ACCURATE CREATININE CLEARANCE IN PREDICTING GLOMERULAR FILTRATION RATE. ESTIMATED GFR IS NOT APPLICABLE FOR DIALYSIS PATIENTS. URINE [id number] 09:10:00 Test Item Value Reference Range Comments CULTURE (BEAKER) (test gnjq=2552) Amikacin (test code=1) Aztreonam (test code=32) Cefepime (test code=51) Cefoxitin (test code=68) Ceftazidime (test code=27) Ceftriaxone (test code=52) Ertapenem (test code=38) Gentamicin (test code=18) Levofloxacin (test code=22) Meropenem (test code=34) Nitrofurantoin (test code=23) Piperacillin + Tazobactam (test code=29) Tetracycline (test code=2) Tobramycin (test code=25) Trimethoprim + Sulfamethoxazole (test code=47) CULTURE (BEAKER) (test brrb=7412) >100,000 col/mL Citrobacter braakii CBC W/PLT COUNT & AUTO [id number] 07:05:00 Test Item Value Reference Range Comments WHITE BLOOD CELL COUNT (BEAKER) (test vbmd=808) 7.5 K/ L 3.5-10.5 RED BLOOD CELL COUNT (BEAKER) (test ecrk=857) 4.30 M/ L 3.93-5.22 HEMOGLOBIN (BEAKER) (test gbtu=733) 10.1 GM/DL 11.2-15.7 HEMATOCRIT (BEAKER) (test ehhp=117) 32.6 % 34.1-44.9 MEAN CORPUSCULAR VOLUME (BEAKER) (test vgqh=714) 75.8 fL 79.4-94.8 MEAN CORPUSCULAR HEMOGLOBIN (BEAKER) (test 23.5 pg 25.6-32.2 bswe=935) MEAN CORPUSCULAR HEMOGLOBIN CONC (BEAKER) (test 31.0 GM/DL 32.2-35.5 gark=026) RED CELL DISTRIBUTION WIDTH (BEAKER) (test 14.1 % 11.7-14.4 lzut=081) PLATELET COUNT (BEAKER) (test pnmc=420) 289 K/CU MM 150-450 MEAN PLATELET VOLUME (BEAKER) (test uoob=259) 9.1 fL 9.4-12.3 NUCLEATED RED BLOOD CELLS (BEAKER) (test 0 /100 WBC 0-0 zfrg=534) NEUTROPHILS RELATIVE PERCENT (BEAKER) (test 73 % xpyx=511) LYMPHOCYTES RELATIVE PERCENT (BEAKER) (test 15 % gkdi=778) MONOCYTES RELATIVE PERCENT (BEAKER) (test 9 % nysk=368) EOSINOPHILS RELATIVE PERCENT (BEAKER) (test 2 % mkzk=290) BASOPHILS RELATIVE PERCENT (BEAKER) (test 0 % wuak=002) NEUTROPHILS ABSOLUTE COUNT (BEAKER) (test 5.50 K/ L 1.56-6.13 bgvs=158) LYMPHOCYTES ABSOLUTE COUNT (BEAKER) (test 1.12 K/ L 1.18-3.74 hiwk=567) MONOCYTES ABSOLUTE COUNT (BEAKER) (test 0.67 K/ L 0.24-0.36 xmkn=136) EOSINOPHILS ABSOLUTE COUNT (BEAKER) (test 0.16 K/ L 0.04-0.36 imlf=275) BASOPHILS ABSOLUTE COUNT (BEAKER) (test 0.03 K/ L 0.01-0.08 fcqg=470) IMMATURE GRANULOCYTES-RELATIVE PERCENT (BEAKER) 0 % 0-1 (test atiz=1366) [id number] 08:15:00 Test Item Value Reference Range Comments MAGNESIUM (BEAKER) (test azap=456) 1.7 mg/dL 1.6-2.6 CBC W/PLT COUNT & AUTO [id number] 04:24:00 Test Item Value Reference Range Comments WHITE BLOOD CELL COUNT (BEAKER) (test ytdp=360) 6.7 K/ L 3.5-10.5 RED BLOOD CELL COUNT (BEAKER) (test flyg=783) 3.69 M/ L 3.93-5.22 HEMOGLOBIN (BEAKER) (test urig=750) 8.6 GM/DL 11.2-15.7 HEMATOCRIT (BEAKER) (test dtvp=889) 28.5 % 34.1-44.9 MEAN CORPUSCULAR VOLUME (BEAKER) (test rwgy=818) 77.2 fL 79.4-94.8 MEAN CORPUSCULAR HEMOGLOBIN (BEAKER) (test 23.3 pg 25.6-32.2 myio=933) MEAN CORPUSCULAR HEMOGLOBIN CONC (BEAKER) (test 30.2 GM/DL 32.2-35.5 mftb=125) RED CELL DISTRIBUTION WIDTH (BEAKER) (test 13.7 % 11.7-14.4 kosv=206) PLATELET COUNT (BEAKER) (test jrqc=485) 249 K/CU MM 150-450 MEAN PLATELET VOLUME (BEAKER) (test gnly=362) 8.8 fL 9.4-12.3 NUCLEATED RED BLOOD CELLS (BEAKER) (test 0 /100 WBC 0-0 fsen=116) NEUTROPHILS RELATIVE PERCENT (BEAKER) (test 64 % safp=267) LYMPHOCYTES RELATIVE PERCENT (BEAKER) (test 21 % hgxy=318) MONOCYTES RELATIVE PERCENT (BEAKER) (test 12 % mtto=973) EOSINOPHILS RELATIVE PERCENT (BEAKER) (test 3 % dagy=891) BASOPHILS RELATIVE PERCENT (BEAKER) (test 0 % uihy=979) NEUTROPHILS ABSOLUTE COUNT (BEAKER) (test 4.23 K/ L 1.56-6.13 ecpm=177) LYMPHOCYTES ABSOLUTE COUNT (BEAKER) (test 1.39 K/ L 1.18-3.74 yaew=403) MONOCYTES ABSOLUTE COUNT (BEAKER) (test 0.80 K/ L 0.24-0.36 zeuq=516) EOSINOPHILS ABSOLUTE COUNT (BEAKER) (test 0.20 K/ L 0.04-0.36 svag=984) BASOPHILS ABSOLUTE COUNT (BEAKER) (test 0.02 K/ L 0.01-0.08 fsiv=028) IMMATURE GRANULOCYTES-RELATIVE PERCENT (BEAKER) 0 % 0-1 (test hsfu=6383) BASIC METABOLIC [id number] 04:19:00 Test Item Value Reference Range Comments SODIUM (BEAKER) (test 139 meq/L 136-145 yjej=152) POTASSIUM (BEAKER) (test 3.1 meq/L 3.5-5.1 vcff=485) CHLORIDE (BEAKER) (test 103 meq/L 98-107 nltl=195) CO2 (BEAKER) (test 29 meq/L 22-29 zapq=257) BLOOD UREA NITROGEN 12 mg/dL 7-21 (BEAKER) (test otmz=225) CREATININE (BEAKER) (test 0.65 mg/dL 0.57-1.25 jdga=082) GLUCOSE RANDOM (BEAKER) 91 mg/dL 70-105 (test meei=165) CALCIUM (BEAKER) (test 8.1 mg/dL 8.4-10.2 udui=345) EGFR (BEAKER) (test 87 mL/min/1.73 sq m ESTIMATED GFR IS NOT twsu=4607) ACCURATE CREATININE CLEARANCE IN PREDICTING GLOMERULAR FILTRATION RATE. ESTIMATED GFR IS NOT APPLICABLE FOR DIALYSIS PATIENTS. EEG MONITORING WITH VIDEO RECORDING EACH 24 [id number] 16:19:00Addendum BeginsAddendum:Start time: 0645Stop time: 1613 There [...] 12/16/2017 to DATE OF REPORT 12/16/17 ACC: [id number] EE-[id number] Start time: 22: 43 Stop time: 06:45 ICD-10: G93.40 CPT Code: 95892 HISTORY: 82 yo F with history of [...] Fellow Gely Cleary MD, MS Epilepsy/Neurophysiology Attending [facility] METABOLIC [id number] 04:38:00 Test Item Value Reference Range Comments SODIUM (BEAKER) (test 142 meq/L 136-145 kcdt=566) POTASSIUM (BEAKER) (test 3.0 meq/L 3.5-5.1 ssla=105) CHLORIDE (BEAKER) (test 104 meq/L 98-107 jqlr=190) CO2 (BEAKER) (test 31 meq/L 22-29 kfkl=845) BLOOD UREA NITROGEN 13 mg/dL 7-21 (BEAKER) (test gsxt=065) CREATININE (BEAKER) (test 0.64 mg/dL 0.57-1.25 pgrt=797) GLUCOSE RANDOM (BEAKER) 122 mg/dL 70-105 (test cjqt=286) CALCIUM (BEAKER) (test 8.1 mg/dL 8.4-10.2 zfec=237) EGFR (BEAKER) (test 89 mL/min/1.73 sq m ESTIMATED GFR IS NOT cwvd=0934) ACCURATE CREATININE CLEARANCE IN PREDICTING GLOMERULAR FILTRATION RATE. ESTIMATED GFR IS NOT APPLICABLE FOR DIALYSIS PATIENTS. CBC W/PLT COUNT & AUTO [id number] 04:03:00 Test Item Value Reference Range Comments WHITE BLOOD CELL COUNT (BEAKER) (test ofyu=006) 8.6 K/ L 3.5-10.5 RED BLOOD CELL COUNT (BEAKER) (test qole=078) 3.94 M/ L 3.93-5.22 HEMOGLOBIN (BEAKER) (test zfai=491) 9.1 GM/DL 11.2-15.7 HEMATOCRIT (BEAKER) (test ydxx=095) 30.3 % 34.1-44.9 MEAN CORPUSCULAR VOLUME (BEAKER) (test zykp=737) 76.9 fL 79.4-94.8 MEAN CORPUSCULAR HEMOGLOBIN (BEAKER) (test 23.1 pg 25.6-32.2 lblq=177) MEAN CORPUSCULAR HEMOGLOBIN CONC (BEAKER) (test 30.0 GM/DL 32.2-35.5 dqmu=496) RED CELL DISTRIBUTION WIDTH (BEAKER) (test 13.4 % 11.7-14.4 pvui=975) PLATELET COUNT (BEAKER) (test ehmb=512) 287 K/CU MM 150-450 MEAN PLATELET VOLUME (BEAKER) (test hjeq=292) 8.7 fL 9.4-12.3 NUCLEATED RED BLOOD CELLS (BEAKER) (test 0 /100 WBC 0-0 hfnk=258) NEUTROPHILS RELATIVE PERCENT (BEAKER) (test 74 % syod=921) LYMPHOCYTES RELATIVE PERCENT (BEAKER) (test 16 % hjtc=213) MONOCYTES RELATIVE PERCENT (BEAKER) (test 9 % zrft=799) EOSINOPHILS RELATIVE PERCENT (BEAKER) (test 1 % deyh=022) BASOPHILS RELATIVE PERCENT (BEAKER) (test 0 % rcat=744) NEUTROPHILS ABSOLUTE COUNT (BEAKER) (test 6.35 K/ L 1.56-6.13 bpdi=694) LYMPHOCYTES ABSOLUTE COUNT (BEAKER) (test 1.35 K/ L 1.18-3.74 nyol=567) MONOCYTES ABSOLUTE COUNT (BEAKER) (test 0.80 K/ L 0.24-0.36 livr=539) EOSINOPHILS ABSOLUTE COUNT (BEAKER) (test 0.08 K/ L 0.04-0.36 kxhx=235) BASOPHILS ABSOLUTE COUNT (BEAKER) (test 0.03 K/ L 0.01-0.08 liqk=985) IMMATURE GRANULOCYTES-RELATIVE PERCENT (BEAKER) 0 % 0-1 (test ovve=6009) EEG AWAKE AND [id number] 23:06:00For STAT EEG- after 5 PM weekdays, weekends and holidays, page the on-call tile professional Reason for exam:->seizure, AMSDATE OF TEST: 1/21/18DATE OF REPORT 12/16/17ACC: [id number]: [id number] time : 22:22Stop time: 22:43ICD-10: G93.40CPT Code: 64393 HISTORY: 82 yo F with history of [...] FACNSProfessor of NeurologyDirector, [facility] EpilepsyMiddletown HospitalerPaulding [facility] Neuro[facility] Lab Electronically signed by: NABILA Foreman 12/16/2017 11:06 PMRAD, CHEST, 1 VIEW, NON [id number] 21:41: 00Reason for exam:->concern for PNAShould this [...] MDReport Verified Date/Time: 12/16/2017 21:41:51 Reading Location: [address] Reading Room [id number] 19:57:00 Test Item Value Reference Range Comments FERRITIN (BEAKER) (test nlrd=547) 36 ng/mL 5-275 VITAMIN D, [id number] 19:57:00 Test Item Value Reference Range Comments VITAMIN D 25-OH (BEAKER) (test qnva=5956) 8.2 ng/mL 6.6-49.9 Effective 09/05/2017: Reference Range ChangeNew: 6.6-49.9 ng/mL Previous: 13.0 -47.8 ng/mLRecommended Vitamin D Target Range: 30.0-40.0 ng/mLTSH/FREE T4 IF [id number] 19:57:00 Test Item Value Reference Range Comments THYROID STIMULATING HORMONE (BEAKER) (test 3.15 uIU/mL 0.35-4.94 hwyq=307) VITAMIN B12 AND [id number] 19:57:00 Test Item Value Reference Range Comments VITAMIN B12 (BEAKER) (test zziz=400) 376 pg/mL 213-816 FOLATE (BEAKER) (test ptwc=603) 15.8 ng/mL >=7.0 URINALYSIS W/ [id number] 19:28:00 Test Item Value Reference Range Comments COLOR (BEAKER) (test bate=163) Yellow CLARITY (BEAKER) (test uofq=365) Clear SPECIFIC GRAVITY UA (BEAKER) (test vmnf=900) 1.017 1.001-1.035 PH UA (BEAKER) (test tdbv=897) 5.5 5.0-8.0 PROTEIN UA (BEAKER) (test lgce=564) 50 mg/dL Negative GLUCOSE UA (BEAKER) (test ecgi=690) Negative Negative KETONES UA (BEAKER) (test sgvx=938) 40 mg/dL Negative BILIRUBIN UA (BEAKER) (test fgan=323) Negative Negative BLOOD UA (BEAKER) (test osrl=266) Negative Negative NITRITE UA (BEAKER) (test wrbq=530) Negative Negative LEUKOCYTE ESTERASE UA (BEAKER) (test quao=173) Moderate Negative UROBILINOGEN UA (BEAKER) (test ubph=665) 0.2 mg/dL 0.2-1.0 RBC UA (BEAKER) (test ssde=971) 1 /HPF WBC UA (BEAKER) (test ozgs=620) 55 /HPF BACTERIA (BEAKER) (test dbof=580) Occasional MUCUS (BEAKER) (test wcmv=6905) Many HYALINE CASTS (BEAKER) (test ezgu=329) 10 /LPF SOURCE(BEAKER) (test yfwb=7076) Urine, [place] IRON, TIBC, % SAT. (WITHOUT FERRITIN)2017-12-16 19:21:00 Test Item Value Reference Range Comments IRON (BEAKER) (test orej=677) 24 ug/dL 40-160 TOTAL IRON BINDING CAPACITY (BEAKER) (test 309 ug/dL 250-450 wwzb=540) IRON % SATURATION (2) (BEAKER) (test zuph=5774) 8 % 20-55 BASIC METABOLIC [id number] 19:20:00 Test Item Value Reference Range Comments SODIUM (BEAKER) (test 141 meq/L 136-145 rtoc=043) POTASSIUM (BEAKER) (test 4.0 meq/L 3.5-5.1 Specimen moderately arak=231) hemolyzed CHLORIDE (BEAKER) (test 102 meq/L 98-107 nxyo=605) CO2 (BEAKER) (test 30 meq/L 22-29 hpln=363) BLOOD UREA NITROGEN 12 mg/dL 7-21 (BEAKER) (test lwsa=374) CREATININE (BEAKER) (test 0.66 mg/dL 0.57-1.25 Specimen moderately gmwj=713) hemolyzed GLUCOSE RANDOM (BEAKER) 102 mg/dL 70-105 (test fzak=169) CALCIUM (BEAKER) (test 8.3 mg/dL 8.4-10.2 muzy=459) EGFR (BEAKER) (test 86 mL/min/1.73 sq m ESTIMATED GFR IS NOT kxkg=5567) ACCURATE CREATININE CLEARANCE IN PREDICTING GLOMERULAR FILTRATION RATE. ESTIMATED GFR IS NOT APPLICABLE FOR DIALYSIS PATIENTS. CBC W/PLT COUNT & AUTO [id number] 19:06:00 Test Item Value Reference Range Comments WHITE BLOOD CELL COUNT (BEAKER) (test orwi=464) 8.2 K/ L 3.5-10.5 RED BLOOD CELL COUNT (BEAKER) (test wehh=569) 4.05 M/ L 3.93-5.22 HEMOGLOBIN (BEAKER) (test dmhx=510) 9.4 GM/DL 11.2-15.7 HEMATOCRIT (BEAKER) (test gkxn=123) 30.9 % 34.1-44.9 MEAN CORPUSCULAR VOLUME (BEAKER) (test aqlj=956) 76.3 fL 79.4-94.8 MEAN CORPUSCULAR HEMOGLOBIN (BEAKER) (test 23.2 pg 25.6-32.2 zuxp=085) MEAN CORPUSCULAR HEMOGLOBIN CONC (BEAKER) (test 30.4 GM/DL 32.2-35.5 qbht=374) RED CELL DISTRIBUTION WIDTH (BEAKER) (test 13.6 % 11.7-14.4 oryb=087) PLATELET COUNT (BEAKER) (test lryi=076) 301 K/CU MM 150-450 MEAN PLATELET VOLUME (BEAKER) (test mpap=943) 8.7 fL 9.4-12.3 NUCLEATED RED BLOOD CELLS (BEAKER) (test 0 /100 WBC 0-0 zddh=624) NEUTROPHILS RELATIVE PERCENT (BEAKER) (test 78 % jhnb=972) LYMPHOCYTES RELATIVE PERCENT (BEAKER) (test 13 % keod=414) MONOCYTES RELATIVE PERCENT (BEAKER) (test 9 % zuus=218) EOSINOPHILS RELATIVE PERCENT (BEAKER) (test 1 % tdsj=653) BASOPHILS RELATIVE PERCENT (BEAKER) (test 0 % gmdk=804) NEUTROPHILS ABSOLUTE COUNT (BEAKER) (test 6.35 K/ L 1.56-6.13 ukeu=728) LYMPHOCYTES ABSOLUTE COUNT (BEAKER) (test 1.06 K/ L 1.18-3.74 futg=731) MONOCYTES ABSOLUTE COUNT (BEAKER) (test 0.70 K/ L 0.24-0.36 ijuk=459) EOSINOPHILS ABSOLUTE COUNT (BEAKER) (test 0.04 K/ L 0.04-0.36 zhkr=457) BASOPHILS ABSOLUTE COUNT (BEAKER) (test 0.03 K/ L 0.01-0.08 wkkr=803) IMMATURE GRANULOCYTES-RELATIVE PERCENT (BEAKER) 0 % 0-1 (test pnld=1193)
--- OUTSIDE RECORDS SUMMARY | 2018-07-09 01:16 | XMS REPORT | Clinical Summary ---
:1935 Author Organization [facility] Address [address] [place] [address] Phone Care Team Providers Name Role Phone [...] type;Hypothyroidism, unspecified type;Acute cystitis without hematuria after 07/08/2017 Social History Tobacco Use Types Packs/Day Years Used Date Never Smoker Smokeless Tobacco: Never Used Sex Assigned at Date Recorded Not on file Last Filed Vital Signs Vital Sign Reading Time Taken Blood Pressure 157/77 12/20/2017 11:34 AM [facility] Pulse 76 12/20/2017 11:34 AM [facility] Temperature 36.5 C (97.7 F) 12/20/2017 11:34 AM [facility] Respiratory Rate 18 12/20/2017 11:34 AM [facility] Oxygen Saturation 98% 12/20/2017 11:34 AM [facility] Inhaled Oxygen Concentration - - Weight 54 kg (119 lb) 12/20/2017 5:00 AM [facility] Height 157.5 cm (5' 2") 12/16/2017 5:25 PM [facility] Body Mass Index 21.77 12/20/2017 5:00 AM [facility] Plan of Treatment Not on file Results RHYTHM STRIP - SCAN (12/21/2017 2:41 PM)Magnesium (12/19/2017 7:31 AM)Only the most recent of2 resultswithin the time period is included. Component Value Ref Range Magnesium 2.2Comment: Specimen slightly hemolyzed 1.6 - 2.6 mg/dL Specimen Performing Laboratory Blood - Line, Venous [facility] [address] [address] Basic Metabolic Panel (12/19/2017 7:31 AM)Only the [...] Specimen Performing Laboratory Blood - Line, Venous [address] [address] CBC with platelet count + automated diff [...] Specimen Performing Laboratory Blood - Line, Venous [address] [address] CBC with platelet count + automated diff (12/19/2017 6:58 AM)Only the most recent of4 resultswithin the time period is included. Specimen Performing Laboratory Blood Narrative The following orders were created for panel order CBC with platelet count + automated diff. Procedure Abnormality Status --------- ------ CBC with platelet count ...[[id number]]AbnormalFinal result Please view results for these tests [...] to 12/17/2017 DATE OF REPORT 12/16/17 ACC: [id number] [id number] Start time: 22:43 Stop time: 06:45 ICD-10: G93.40 CPT Code: 73592 HISTORY: 82 yo F with history of chronic pain, chronic Lozano, osteoporosis, HTN, who was transferred from [facility] for AMS and seizures. UDS [...] External Ris In - 12/17/2017 4:19 PM [facility] Addendum Begins Addendum: Start time: 0645 Stop [...] to 12/17/2017 DATE OF REPORT 12/16/17 ACC: [id number] [id number] Start time: 22:43 Stop time: 06:45 ICD-10: G93.40 CPT Code: 30844 HISTORY: 82 yo F with history of [...] TEST: 12/16/17 DATE OF REPORT 12/16/17 ACC: [id number] [id number] Start time: 22:22 Stop time: 22:43 ICD-10: G93.40 CPT Code: 03455 HISTORY: 82 yo F with history of [...] Galeas MD Epilepsy Fellow Nabila Sanchez M.D., [facility] Professor of Neurology Director, [facility] Epilepsy [place], [facility] Neurophysiology Lab Procedure Note Interface, External Ris In - 12/16/2017 11:06 PM [facility] DATE OF TEST: 12/16/17 DATE OF REPORT 12/16/17 ACC: [id number] Start time: 22:22 Stop time: 22:43 ICD-10: G93.40 CPT Code: 60924 HISTORY: 82 yo F with history of chronic pain, chronic Lozano, osteoporosis, HTN, who was transferred from [facility] for AMS and seizures. UDS [...] Galeas MD Epilepsy Fellow Nabila Sanchez M.D., [facility] Professor of Neurology Director, [facility] Epilepsy [place], [facility] Neurophysiology Lab chest 1 view portable [...] Report Verified Date/Time:12/16/2017 21:41:51 Reading Location: [address] Reading Room Procedure Note Interface, External Ris In - 12/16/2017 9:44 PM [facility]ER FINAL REPORT INDICATION: concern for PNA COMPARISON: None TECHNIQUE: Single frontal view of the chest. FINDINGS: Limited by severe scoliosis and contractures. Lungs and pleura: Clear lungs. No effusion. Heart and mediastinum: Normal heart size. Unremarkable mediastinal contours. Osseous structures: No acute abnormality. Other: None. IMPRESSION: No acute intrathoracic abnormality. Signed: JR aLmb Robert MD Report Verified Date/Time: 12/16/2017 21:41:51 Reading Location: [address] Reading Room Urine culture (12/16/2017 8:45 PM) Component Value Ref Range Result Result >100,000 col/mL Citrobacter braakii (A) Specimen Performing Laboratory Urine - Urine, [place] [address] [address] Organism Antibiotic Method Susceptibility Citrobacter braakii Amikacin [...] 15.8 >=7.0 ng/mL Specimen Performing Laboratory Blood [address] [address] TSH/Free T4 If Indicated (12/16/2017 6:50 PM) Component Value Ref Range TSH 3.15 0.35 - 4.94 uIU/mL Specimen Performing Laboratory Blood [address] [address] Iron, TIBC, % sat. (without ferritin) (12/16/2017 6:50 PM) Component Value Ref Range Iron 24 (L) 40 - 160 ug/dL TIBC 309 250 - 450 ug/dL Iron % Saturation 8 (L) 20 - 55 % Specimen Performing Laboratory [address] [address] Vitamin D, 25-Hydroxy (12/16/2017 6:50 PM) Component Value Ref Range Vitamin D 25-Hydroxy 8.2 6.6 - 49.9 ng/mL Specimen Performing Laboratory Blood [address] [address] Narrative Effective 09/05/2017: Reference Range Change New: 6.6-49.9 ng/mL Previous: 13.0-47.8 ng/mL Recommended Vitamin D Target Range: 30.0-40.0 ng/mL Blood culture (12/16/2017 6:50 PM) Component Value Ref Range Result No growth in 5 days Specimen Performing Laboratory Blood - Arm, Right [address] [address] Urinalysis w/ Microscopic (12/16/2017 6:50 PM) Component Value Ref Range Color, UA Yellow Clarity, UA Clear Specific [place], UA 1.017 1.001 - 1.035 pH, UA [...] Specimen Performing Laboratory Urine - Urine, [place] [address] [address] Ferritin (12/16/2017 6:50 PM) Component Value Ref Range Ferritin 36 5 - 275 ng/mL Specimen Performing Laboratory Blood [address] [address] after 07/08/2017
--- NOTE | 2018-07-09 01:33 | ER ---
Nurse's Notes [facility] Name: Gloria Armenta Age: 82 yrs Sex: Female : 1935 Arrival Date: 07/09/2018 Time: :14 Bed 24 Private MD: Diagnosis: Pruritus, unspecified;Essential (primary) hypertension Presentation: 07/09 01:25 Presenting complaint: Patient states: headache and itching since 2100 last night. ak1 Transition of care: patient was not received from another setting of care. Onset of symptoms was July 08, 2018. Care prior to arrival: None. 01:25 Method Of Arrival: Wheelchair ak1 01:25 Acuity: AURELIO 4 ak1 01:40 Risk Assessment: Do you want to hurt yourself or someone else? Patient reports no mg2 desire to harm self or others. Initial Sepsis Screen: Does the patient meet any 2 criteria? No. Patient's initial sepsis screen is negative. Does the patient have a suspected source of infection? No. Patient's initial sepsis screen is negative. Triage Assessment: 01:38 Headache History: The patient has had previous headaches and this one is similar to mg2 previous episodes. General: Appears in no apparent distress. uncomfortable. General: Appears Behavior is calm, cooperative. Pain: Also complains of no other associated symptoms. Pain: Complains of pain in head. Pain: Also complains of. Historical: - Allergies: 01:25 Ketorolac; ak1 01:25 Morphine; ak1 01:25 Prochlorperazine Maleate; ak1 01:25 Rofecoxib; ak1 01:25 Sulfa (Sulfonamide Antibiotics); ak1 01:25 SUMATRIPTAN; ak1 01:25 Sumatriptan Succinate; ak1 01:25 prochlorperazine Edisylate; ak1 01:25 ketorolac tromethamine; ak1 01:25 esomeprazole mag; ak1 01:25 chlorpromazine HCl; ak1 01:25 Aspirin; ak1 01:25 Cefaclor; ak1 01:25 Celecoxib; ak1 01:25 Cephalexin; ak1 01:25 CEPHALOSPORINS; ak1 01:25 Chlorpromazine; ak1 - Home Meds: 01:25 clonidine HCl 0.1 mg Oral tab [Active]; ak1 - PMHx: 01:25 Chronic headaches; Chronic pain; Hypertension; ak1 - PSHx: 01:25 sternal surgery; Hysterectomy; Knee surgery; knee and leg surgery; ak1 - Immunization history:: Adult Immunizations unknown. - Social history:: Smoking status: Patient/guardian denies using tobacco. - Ebola Screening: : No symptoms or risks identified at this time. Screenin:21 Abuse screen: Denies threats or abuse. Denies injuries from another. Nutritional mg2 screening: No deficits noted. Tuberculosis screening: No symptoms or risk factors identified. Fall Risk None identified. Assessment: 01:30 General: Appears in no apparent distress. uncomfortable, Behavior is calm, cooperative. mg2 Pain: Complains of pain in head Pain does not radiate. Pain currently is 4 out of 10 on a pain scale. Quality of pain is described as aching, Pain began gradually, 4 hours ago. Is intermittent, Alleviated by rest. Neuro: Level of Consciousness is awake, alert, obeys commands, Oriented to person, place, time, situation. Cardiovascular: Capillary refill < 3 seconds Patient's skin is warm and dry. Respiratory: Airway is patent Respiratory effort is even, unlabored, Respiratory pattern is regular, symmetrical. GI: No signs and/or symptoms were reported involving the gastrointestinal system. : No signs and/or symptoms were reported regarding the genitourinary system. EENT: No signs and/or symptoms were reported regarding the EENT system. Derm: Skin is pink, warm \T\ dry. normal, itchiness. Musculoskeletal: Circulation, motion, and sensation intact. Vital Signs: 01:22 BP 203 / 136; Pulse 111; Resp 16; Temp 99.3(O); Pulse Ox 97% on R/A; Weight 56.7 kg ak1 (R); Height 5 ft. 7 in. (170.18 cm) (R); Pain 8/10; 01:58 BP 189 / 121; Pulse 102; Resp 18; Pulse Ox 100% on R/A; Pain 0/10; mg2 01:22 Body Mass Index 19.58 (56.70 kg, 170.18 cm) ak1 [place] Coma Score: 01:34 Eye Response: spontaneous(4). Verbal Response: oriented(5). Motor Response: obeys snw commands(6). Total: 15. ED Course: 01:14 Patient arrived in ED. do 01:21 Viktor Saba, RN is Primary Nurse. mg2 01:21 [facility] Enri[facility]C [facility]. snw 01:21 Jus Gandara MD is Attending Physician. snw 01:21 Patient has correct armband on for positive identification. mg2 01:26 Triage completed. ak1 01:30 No provider procedures requiring assistance completed. mg2 01:39 Arm band placed on left wrist. mg2 01:58 Patient did not have IV access during this emergency room visit. mg2 Administered Medications: 01:38 Drug: Atarax 25 mg Route: PO; mg2 01:58 Follow up: Response: No adverse reaction; Marked relief of symptoms mg2 01:38 Drug: cloNIDine 0.1 mg Route: PO; mg2 01:58 Follow up: Response: No adverse reaction; Blood pressure is lowered mg2 Outcome: 01:33 Discharge ordered by . snw 01:59 Discharged to home via wheelchair. mg2 01:59 Condition: stable 01:59 Discharge instructions given to patient, Instructed on discharge instructions, follow up and referral plans. medication usage, Demonstrated understanding of instructions, follow-up care, medications, Prescriptions given X 1. 01:59 Patient left the ED. mg2 Signatures: Leyla Enriquez FNP-C FRONT DESK SUPERVISOR-Csnw Marsha Miles RN RN ak1 Khadijah Cueva Michele, RN RN mg2
--- NOTE | 2018-07-09 01:33 | EDPHYS ---
Physician Documentation [facility] Name: Gloria Armenta Age: 82 yrs Sex: Female : 1935 Arrival Date: 07/09/2018 Time: :14 Bed 24 Private MD: ED Physician Jus Gandara HPI: 07/09 01:51 This 82 yrs old Female presents to ER via Wheelchair with complaints of snw Headache, Body Aches, Itchiness. 01:51 The patient complains of pain to the forehead. The patient describes the headache as a snw pressure. Onset: The symptoms/episode began/occurred chronically, pt's main complaint today is itching. Associated signs and symptoms: Pertinent positives: itching. Headache History: The patient has had previous headaches and this one is similar to previous episodes. The patient has experienced similar episodes in the past, chronically. The patient has been recently seen by a physician:. Historical: - Allergies: 01:25 Ketorolac; ak1 01:25 Morphine; ak1 01:25 Prochlorperazine Maleate; ak1 01:25 Rofecoxib; ak1 01:25 Sulfa (Sulfonamide Antibiotics); ak1 01:25 SUMATRIPTAN; ak1 01:25 Sumatriptan Succinate; ak1 01:25 prochlorperazine Edisylate; ak1 01:25 ketorolac tromethamine; ak1 01:25 esomeprazole mag; ak1 01:25 chlorpromazine HCl; ak1 01:25 Aspirin; ak1 01:25 Cefaclor; ak1 01:25 Celecoxib; ak1 01:25 Cephalexin; ak1 01:25 CEPHALOSPORINS; ak1 01:25 Chlorpromazine; ak1 - Home Meds: 01:25 clonidine HCl 0.1 mg Oral tab [Active]; ak1 - PMHx: 01:25 Chronic headaches; Chronic pain; Hypertension; ak1 - PSHx: 01:25 sternal surgery; Hysterectomy; Knee surgery; knee and leg surgery; ak1 - Immunization history:: Adult Immunizations unknown. - Social history:: Smoking status: Patient/guardian denies using tobacco. - Ebola Screening: : No symptoms or risks identified at this time. ROS: 01:50 Constitutional: Negative for fever, chills, and weight loss, Eyes: Negative for injury, snw pain, redness, and discharge, ENT: Negative for injury, pain, and discharge, Neck: Negative for injury, pain, and swelling, Cardiovascular: Negative for chest pain, palpitations, and edema, Respiratory: Negative for shortness of breath, cough, wheezing, and pleuritic chest pain, Abdomen/GI: Negative for abdominal pain, nausea, vomiting, diarrhea, and constipation, Back: Negative for injury and pain, : Negative for injury, bleeding, discharge, and swelling, MS/Extremity: Negative for injury and deformity, Neuro: Negative for headache, weakness, numbness, tingling, and seizure, Psych: Negative for depression, anxiety, suicide ideation, homicidal ideation, and hallucinations. 01:50 Skin: Positive for itching. Exam: 01:49 Constitutional: This is a well developed, well nourished patient who is awake, alert, snw and in no acute distress. Head/Face: Normocephalic, atraumatic. Eyes: Pupils equal round and reactive to light, extra-ocular motions intact. Lids and lashes normal. Conjunctiva and sclera are non-icteric and not injected. Cornea within normal limits. Periorbital areas with no swelling, redness, or edema. ENT: Nares patent. No nasal discharge, no septal abnormalities noted. Tympanic membranes are normal and external auditory canals are clear. Oropharynx with no redness, swelling, or masses, exudates, or evidence of obstruction, uvula midline. Mucous membranes moist. Neck: Trachea midline, no thyromegaly or masses palpated, and no cervical lymphadenopathy. Supple, full range of motion without nuchal rigidity, or vertebral point tenderness. No Meningismus. Chest/axilla: Normal chest wall appearance and motion. Nontender with no deformity. No lesions are appreciated. Respiratory: Lungs have equal breath sounds bilaterally, clear to auscultation and percussion. No rales, rhonchi or wheezes noted. No increased work of breathing, no retractions or nasal flaring. Abdomen/GI: Soft, non-tender, with normal bowel sounds. No distension or tympany. No guarding or rebound. No evidence of tenderness throughout. Back: No spinal tenderness. No costovertebral tenderness. Full range of motion. MS/ Extremity: Pulses equal, no cyanosis. Neurovascular intact. Full, normal range of motion. Neuro: Awake and alert, GCS 15, oriented to person, place, time, and situation. Cranial nerves II-XII grossly intact. Motor strength 5/5 in all extremities. Sensory grossly intact. Cerebellar exam normal. Normal gait. Psych: Awake, alert, with orientation to person, place and time. Behavior, mood, and affect are within normal limits. 01:49 Cardiovascular: Rate: tachycardic, Heart sounds: murmur. 01:49 Skin: Appearance: normal except for affected area, Turgor: is poor, dry, areas of excoriation from scratching to bilateral arms and legs. Vital Signs: 01:22 BP 203 / 136; Pulse 111; Resp 16; Temp 99.3(O); Pulse Ox 97% on R/A; Weight 56.7 kg ak1 (R); Height 5 ft. 7 in. (170.18 cm) (R); Pain 8/10; 01:58 BP 189 / 121; Pulse 102; Resp 18; Pulse Ox 100% on R/A; Pain 0/10; mg2 01:22 Body Mass Index 19.58 (56.70 kg, 170.18 cm) ak1 [place] Coma Score: 01:34 Eye Response: spontaneous(4). Verbal Response: oriented(5). Motor Response: obeys snw commands(6). Total: 15. MDM: 01:22 Patient medically screened. snw 01:34 Data reviewed: vital signs, nurses notes. Data interpreted: Pulse oximetry: on room air snw is 97 %. Interpretation: normal. Counseling: I had a detailed discussion with the patient and/or guardian regarding: the historical points, exam findings, and any diagnostic results supporting the discharge/admit diagnosis, the presence of at least one elevated blood pressure reading (>120/80) during this emergency department visit, the need for outpatient follow up, to return to the emergency department if symptoms worsen or persist or if there are any questions or concerns that arise at home. Special discussion: I have referred the patient to see his PCP for further evaluation of high blood pressure. Based on the history and exam findings, there is no indication for further emergent testing or inpatient evaluation. I discussed with the patient/guardian the need to see the primary care provider for further evaluation of the symptoms. Administered Medications: 01:38 Drug: Atarax 25 mg Route: PO; mg2 01:58 Follow up: Response: No adverse reaction; Marked relief of symptoms mg2 01:38 Drug: cloNIDine 0.1 mg Route: PO; mg2 01:58 Follow up: Response: No adverse reaction; Blood pressure is lowered mg2 Disposition: 07/09/18 01:33 Discharged to Home. Impression: Pruritus, unspecified, Essential (primary) hypertension. - Condition is Stable. - Discharge Instructions: Allergies, Adult, Hypertension, Pruritus, Managing Your Hypertension. - Prescriptions for Vistaril 25 mg Oral capsule - take 1 capsule by ORAL route 2-3 times daily; 15 capsule. - Medication Reconciliation Form, Thank You Letter, Antibiotic Education, Prescription Opioid Use form. - Follow up: Private Physician; When: Tomorrow; Reason: Recheck today's complaints, Continuance of care, Re-evaluation by your physician. Follow up: Emergency Department; When: As needed; Reason: Worsening of condition. Addendum: 07/11/2018 18:35 Co-signature as Attending Physician, Jus Gandara MD. g s Signatures: Leyla Enriquez, BELLY DANCER-C BELLY DANCER-Csnw Marsha Miles RN RN ak1 Jus Gandara MD MD gs Viktor Saba RN RN mg2 Corrections: (The following items were deleted from the chart) 07/09 01:33 01:33 07/09/2018 01:33 Discharged to Home. Impression: Pruritus, unspecified. Condition snw is Stable. Forms are Medication Reconciliation Form, Thank You Letter, Antibiotic Education, Prescription Opioid Use. Follow up: Private Physician; When: Tomorrow; Reason: Recheck today's complaints, Continuance of care, Re-evaluation by your physician. Follow up: Emergency Department; When: As needed; Reason: Worsening of condition. snw 01:59 01:33 07/09/2018 01:33 Discharged to Home. Impression: Pruritus, unspecified; Essential mg2 (primary) hypertension. Condition is Stable. Forms are Medication Reconciliation Form, Thank You Letter, Antibiotic Education, Prescription Opioid Use. Follow up: Private Physician; When: Tomorrow; Reason: Recheck today's complaints, Continuance of care, Re-evaluation by your physician. Follow up: Emergency Department; When: As needed; Reason: Worsening of condition. snw
[2018-07-09] MEDS ORDERED: hydrOXYzine HCl 25 MG TAB ONE (01:36)
[2018-07-09] MEDS ORDERED: cloNIDine HCl 0.1 MG TAB ONE (01:37)
[2018-07-09 02:38] VITALS: TEMP 99.3
[2018-07-09 02:39] VITALS: BP 189/121; O2SAT 100
== END 2018-07-09 01:59 | disposition home or self-care (01) ==
LOC: ER 01:12
DX: I10 Essential (primary) hypertension (principal); L29.9 Pruritus, unspecified; Z88.1 Allergy status to other antibiotic agents; Z88.2 Allergy status to sulfonamides; Z88.3 Allergy status to other anti-infective agents; Z88.5 Allergy status to narcotic agent; Z88.6 Allergy status to analgesic agent; Z88.8 Allergy status to other drugs, medicaments and biological substances
CPT/HCPCS: 99283

== ENCOUNTER 2018-08-17 19:27 | Emergency (ER) | payer OTHER ==
[2018-08-17] MEDS ORDERED: cloNIDine HCl 0.1 MG TAB ONE (20:25)
[2018-08-17] MEDS ORDERED: MEPERIDINE HCL 50 MG/ML AMP ONE (20:46)
--- NOTE | 2018-08-17 21:25 | EDPHYS ---
Physician Documentation [facility] Name: Gloria Armenta Age: 82 yrs Sex: Female : 1935 Arrival Date: 08/17/2018 Time: 19:49 Bed 24 Private MD: ED Physician Bashir Langley HPI: 08/17 20:30 This 82 yrs old Female presents to ER via Ambulatory with complaints of cp Headache. 20:30 The patient complains of pain to the right side of head. cp 20:30 The patient describes the headache as aching, constant. Onset: The symptoms/episode cp began/occurred 4 hour(s) ago. Associated signs and symptoms: Pertinent positives: Photophobia nasal drainage, Pertinent negatives: altered mental status, fever, neck stiffness. Headache History: The patient has had previous headaches and this one is similar to previous episodes. Historical: - Allergies: 19:53 Aspirin; aj1 19:53 Cefaclor; aj1 19:53 Celecoxib; aj1 19:53 Cephalexin; aj1 19:53 CEPHALOSPORINS; aj1 19:53 Chlorpromazine; aj1 19:53 chlorpromazine HCl; aj1 19:53 esomeprazole mag; aj1 19:53 Ketorolac; aj1 19:53 ketorolac tromethamine; aj1 19:53 Morphine; aj1 19:53 prochlorperazine Edisylate; aj1 19:53 Prochlorperazine Maleate; aj1 19:53 Rofecoxib; aj1 19:53 Sulfa (Sulfonamide Antibiotics); aj1 19:53 SUMATRIPTAN; aj1 19:53 Sumatriptan Succinate; aj1 - Home Meds: 19:53 clonidine HCl 0.1 mg Oral tab once daily [Active]; aj1 - PMHx: 19:53 Chronic headaches; Chronic pain; Hypertension; aj1 - Immunization history:: Flu vaccine is up to date. - Social history:: Smoking status: Patient/guardian denies using tobacco. - Ebola Screening: : Patient denies travel to an Ebola-affected area in the 21 days before illness onset. ROS: 20:35 Constitutional: Negative for body aches, chills, fever, poor PO intake. cp 20:35 Cardiovascular: Negative for chest pain, palpitations, and edema, Respiratory: Negative cp for shortness of breath, cough, wheezing, and pleuritic chest pain. 20:35 Eyes: Positive for photophobia. 20:35 ENT: Positive for rhinorrhea. 20:35 Neuro: Positive for headache, Negative for altered mental status, weakness. 20:35 All other systems are negative. Exam: 20:42 Constitutional: The patient appears in no acute distress, alert, awake, cp non-diaphoretic, non-toxic, well developed, well nourished. 20:42 Head/Face: Normocephalic, atraumatic. cp 20:42 Eyes: Periorbital structures: appear normal, Pupils: equal, round, and reactive to light and accomodation, Extraocular movements: intact throughout, Conjunctiva: normal, no exudate, no injection, Sclera: no appreciated abnormality, Lids and lashes: appear normal, bilaterally. 20:42 ENT: External ear(s): are unremarkable, Ear canal(s): are normal, clear, TM's: dullness, bilaterally, Nose: is normal, Mouth: Lips: moist, Oral mucosa: pink and intact, moist, Posterior pharynx: is normal, airway is patent, no erythema, no exudate, Voice: is normal. 20:42 Neck: ROM/movement: is normal, is supple, without pain, no range of motions limitations, no meningismus, no nuchal rigidity. 20:42 Chest/axilla: Inspection: normal. 20:42 Cardiovascular: Rate: normal, Rhythm: regular. 20:42 Respiratory: the patient does not display signs of respiratory distress, Respirations: normal, no use of accessory muscles, no retractions, no splinting, no tachypnea, Breath sounds: are clear throughout, no decreased breath sounds, no stridor, no wheezing. 20:42 Abdomen/GI: Exam negative for discomfort, distension, guarding, Inspection: abdomen appears normal. 20:42 Skin: cellulitis, is not appreciated, no rash present. cp 20:42 Neuro: Orientation: to person, place \T\ time. Mentation: lucid, able to follow commands, Cerebellar function: is grossly normal, Motor: moves all fours, strength is normal, Sensation: is normal. Vital Signs: 19:53 BP 237 / 122; Pulse 85; Resp 18; Temp 97.1; Pulse Ox 98% on R/A; Weight 58.06 kg (R); aj1 Height 5 ft. 7 in. (170.18 cm) (R); Pain 8/10; 21:01 BP 183 / 118; Pulse 84; Resp 17; Pulse Ox 99% on R/A; kr2 21:41 BP 147 / 95; Pulse 85; Resp 17; Pulse Ox 98% on R/A; kr2 19:53 Body Mass Index 20.05 (58.06 kg, 170.18 cm) aj1 MDM: 20:02 Patient medically screened. cp 20:30 Differential diagnosis: cluster headache, hypertensive headache, meningitis, migraine, cp otitis, sinusitis, subarachnoid bleed, subdural hematoma, tension headache. 21:22 Data reviewed: vital signs, nurses notes. cp 21:22 Counseling: I had a detailed discussion with the patient and/or guardian regarding: the cp historical points, exam findings, and any diagnostic results supporting the discharge/admit diagnosis, the need for outpatient follow up, a family practitioner, to return to the emergency department if symptoms worsen or persist or if there are any questions or concerns that arise at home. Response to treatment: the patient's symptoms have markedly improved after treatment, VSS. Blood pressure and pain improved. Will discharge to home for continued monitoring. Administered Medications: 20:23 Drug: cloNIDine 0.2 mg Route: PO; kr2 21:03 Follow up: Response: No adverse reaction; Blood pressure is lowered kr2 20:43 Drug: Demerol 25 mg Route: IM; Site: right deltoid; kr2 21:00 Follow up: Response: No adverse reaction; Pain is decreased kr2 Disposition: 08/18 20:36 Co-signature as Attending Physician, Bashir Langley MD. rn Disposition: 08/17/18 21:24 Discharged to Home. Impression: Headache, Hypertensive heart disease - Uncontrolled. - Condition is Stable. - Discharge Instructions: Migraine Headache, Hypertension, Managing Your Hypertension. - Medication Reconciliation Form, Thank You Letter, Antibiotic Education, Prescription Opioid Use form. - Follow up: Private Physician; When: 1 - 2 days; Reason: Recheck today's complaints. - Problem is chronic. - Symptoms have improved. Signatures: Augusta Obrien RN RN aj1 Langley, Bashir, MD MD rn Page, Ronny, PA PA cp Hector, Sayda, RN RN kr2 Corrections: (The following items were deleted from the chart) 08/17 21:54 21:24 08/17/2018 21:24 Discharged to Home. Impression: Headache; Hypertensive heart kr2 disease - Uncontrolled. Condition is Stable. Forms are Medication Reconciliation Form, Thank You Letter, Antibiotic Education, Prescription Opioid Use. Follow up: Private Physician; When: 1 - 2 days; Reason: Recheck today's complaints. Problem is chronic. Symptoms have improved. cp
--- NOTE | 2018-08-17 21:25 | ER ---
Nurse's Notes [facility] Name: Gloria Armenta Age: 82 yrs Sex: Female : 1935 Arrival Date: 08/17/2018 Time: 19:49 Bed 24 Private MD: Diagnosis: Headache;Hypertensive heart disease-Uncontrolled Presentation: 08/17 19:50 Presenting complaint: Patient states: "I have a migraine headache and I don't have aj1 anything for it" Reports headache for the past 4 hours. Denies N/V/D. Denies fever. Denies dizziness. States "Its just a headache, that all. Just the headache". Transition of care: patient was not received from another setting of care. Onset of symptoms was August 17, 2018 at 16:00. Risk Assessment: Do you want to hurt yourself or someone else? Patient reports no desire to harm self or others. Initial Sepsis Screen: Does the patient meet any 2 criteria? No. Patient's initial sepsis screen is negative. Does the patient have a suspected source of infection? No. Patient's initial sepsis screen is negative. Care prior to arrival: None. 19:50 Method Of Arrival: Ambulatory [facility] 19:50 Acuity: AURELIO 3 aj1 Triage Assessment: 19:53 Headache History: The patient has had previous headaches and this one is similar to aj1 previous episodes. General: Appears in no apparent distress. comfortable, Behavior is calm, cooperative, appropriate for age. Pain: Complains of pain in right frontal area, right side of the back of head, right temporal area, right side of forehead and right jain Pain currently is 8 out of 10 on a pain scale. Pain began 4 hours ago. Neuro: Level of Consciousness is awake, alert, obeys commands, Oriented to person, place, time, situation, Top Precipitator Operator Helper are equal bilaterally Moves all extremities. Full function Speech is normal, Facial symmetry appears normal. Cardiovascular: Patient's skin is warm and dry. Respiratory: Airway is patent Respiratory effort is even, unlabored, Respiratory pattern is regular, symmetrical. GI: No signs and/or symptoms were reported involving the gastrointestinal system. : No signs and/or symptoms were reported regarding the genitourinary system. Derm: Skin is pink, warm \\T\\ dry. normal. Musculoskeletal: Range of motion: intact in all extremities. 20:00 Pain: Also complains of photophobia. kr2 Historical: - Allergies: 19:53 Aspirin; aj1 19:53 Cefaclor; aj1 19:53 Celecoxib; aj1 19:53 Cephalexin; aj1 19:53 CEPHALOSPORINS; aj1 19:53 Chlorpromazine; aj1 19:53 chlorpromazine HCl; aj1 19:53 esomeprazole mag; aj1 19:53 Ketorolac; aj1 19:53 ketorolac tromethamine; aj1 19:53 Morphine; aj1 19:53 prochlorperazine Edisylate; aj1 19:53 Prochlorperazine Maleate; aj1 19:53 Rofecoxib; aj1 19:53 Sulfa (Sulfonamide Antibiotics); aj1 19:53 SUMATRIPTAN; aj1 19:53 Sumatriptan Succinate; aj1 - Home Meds: 19:53 clonidine HCl 0.1 mg Oral tab once daily [Active]; aj1 - PMHx: 19:53 Chronic headaches; Chronic pain; Hypertension; aj1 - Immunization history:: Flu vaccine is up to date. - Social history:: Smoking status: Patient/guardian denies using tobacco. - Ebola Screening: : Patient denies travel to an Ebola-affected area in the 21 days before illness onset. Screenin:00 Abuse screen: Denies threats or abuse. Denies injuries from another. Nutritional kr2 screening: No deficits noted. Tuberculosis screening: No symptoms or risk factors identified. Fall Risk None identified. Assessment: 20:00 General: Appears in no apparent distress. comfortable, well groomed, Behavior is calm, kr2 cooperative, appropriate for age. Pain: Complains of pain in right temporal area Pain radiates to right side of forehead and right side of the back of head Pain currently is 8 out of 10 on a pain scale. Quality of pain is described as aching, Is continuous, Alleviated by nothing. Aggravated by light, sound Noted to be grimacing. Neuro: Level of Consciousness is awake, alert, obeys commands, Oriented to person, place, time, situation, Appropriate for age. Cardiovascular: Capillary refill Patient's skin is warm and dry. Respiratory: Airway is patent Respiratory effort is even, unlabored, Respiratory pattern is regular, symmetrical. 21:03 Reassessment: Patient appears in no apparent distress at this time. Patient and/or kr2 family updated on plan of care and expected duration. Pain level reassessed. Patient is alert, oriented x 3, equal unlabored respirations, skin warm/dry/pink. Patient states feeling better. 21:52 Reassessment: Patient appears in no apparent distress at this time. Patient and/or kr2 family updated on plan of care and expected duration. Pain level reassessed. Patient is alert, oriented x 3, equal unlabored respirations, skin warm/dry/pink. Patient states feeling better. Vital Signs: 19:53 BP 237 / 122; Pulse 85; Resp 18; Temp 97.1; Pulse Ox 98% on R/A; Weight 58.06 kg (R); aj1 Height 5 ft. 7 in. (170.18 cm) (R); Pain 8/10; 21:01 BP 183 / 118; Pulse 84; Resp 17; Pulse Ox 99% on R/A; kr2 21:41 BP 147 / 95; Pulse 85; Resp 17; Pulse Ox 98% on R/A; kr2 19:53 Body Mass Index 20.05 (58.06 kg, 170.18 cm) aj1 ED Course: 19:49 Patient arrived in ED. aj1 19:52 Triage completed. aj1 19:53 Arm band placed on Patient placed in an exam room. aj1 20:00 Patient has correct armband on for positive identification. Bed in low position. Call kr2 light in reach. Side rails up X 1. Pulse ox on. NIBP on. Door closed. Lights dimmed. Head of bed elevated. 20:01 Ronny Troy PA is PHCP. cp 20:01 Bashir Langley MD is Attending Physician. cp 20:23 Sayda Young, NAT is Primary Nurse. kr2 21:53 No provider procedures requiring assistance completed. Patient did not have IV access kr2 during this emergency room visit. Administered Medications: 20:23 Drug: cloNIDine 0.2 mg Route: PO; kr2 21:03 Follow up: Response: No adverse reaction; Blood pressure is lowered kr2 20:43 Drug: Demerol 25 mg Route: IM; Site: right deltoid; kr2 21:00 Follow up: Response: No adverse reaction; Pain is decreased kr2 Outcome: 21:24 Discharge ordered by . cp 21:53 Discharged to home via wheelchair, with family. kr2 21:53 Condition: good 21:53 Discharge instructions given to patient, Instructed on discharge instructions, follow up and referral plans. Demonstrated understanding of instructions, follow-up care. 21:54 Patient left the ED. kr2 Signatures: Augusta Obrien, RN RN aj1 Ronny Troy PA PA cp Reaves, Karey RN RN kr2
[2018-08-17 22:03] VITALS: TEMP 97.1
[2018-08-17 22:05] VITALS: BP 147/95; O2SAT 98
--- OUTSIDE RECORDS SUMMARY | 2018-08-19 11:59 | XMS REPORT ---
:1935 [facility] Address [address] [place] [address] [address] [place] [address] Care Team Providers Name Role Phone BISHOPNICHOLE ULLOA Unavailable Unavailable Problems This patient has no known problems. Allergies, Adverse Reactions, Alerts This patient has no known allergies or adverse reactions. Medications This patient has no known medications. Results Test Description Test Time Test Comments Text Results Atomic Results Result Comments BLOOD CULTURE 2017-12-22 05:01:00 Test Item Value Reference Range Comments CULTURE (BEAKER) (test zlkb=8277) No growth in 5 days [id number] 11:31:00 Test Item Value Reference Range Comments MAGNESIUM (BEAKER) (test 2.2 mg/dL 1.6-2.6 Specimen slightly hemolyzed yerc=663) BASIC METABOLIC [id number] 11:31:00 Test Item Value Reference Range Comments SODIUM (BEAKER) (test 139 meq/L 136-145 vdgu=540) POTASSIUM (BEAKER) (test 4.0 meq/L 3.5-5.1 Specimen slightly rvix=392) hemolyzed CHLORIDE (BEAKER) (test 104 meq/L 98-107 jqcg=530) CO2 (BEAKER) (test 27 meq/L 22-29 rndn=884) BLOOD UREA NITROGEN 7 mg/dL 7-21 (BEAKER) (test jmbz=871) CREATININE (BEAKER) (test 0.60 mg/dL 0.57-1.25 Specimen slightly vfnm=233) hemolyzed GLUCOSE RANDOM (BEAKER) 113 mg/dL 70-105 (test hwav=939) CALCIUM (BEAKER) (test 8.3 mg/dL 8.4-10.2 lvbi=225) EGFR (BEAKER) (test 95 mL/min/1.73 sq m ESTIMATED GFR IS NOT bake=4893) ACCURATE CREATININE CLEARANCE IN PREDICTING GLOMERULAR FILTRATION RATE. ESTIMATED GFR IS NOT APPLICABLE FOR DIALYSIS PATIENTS. URINE [id number] 09:10:00 Test Item Value Reference Range Comments CULTURE (BEAKER) (test fvsd=4649) Amikacin (test code=1) Aztreonam (test code=32) Cefepime (test code=51) Cefoxitin (test code=68) Ceftazidime (test code=27) Ceftriaxone (test code=52) Ertapenem (test code=38) Gentamicin (test code=18) Levofloxacin (test code=22) Meropenem (test code=34) Nitrofurantoin (test code=23) Piperacillin + Tazobactam (test code=29) Tetracycline (test code=2) Tobramycin (test code=25) Trimethoprim + Sulfamethoxazole (test code=47) CULTURE (BEAKER) (test uuqq=9596) >100,000 col/mL Citrobacter braakii CBC W/PLT COUNT & AUTO [id number] 07:05:00 Test Item Value Reference Range Comments WHITE BLOOD CELL COUNT (BEAKER) (test lwex=367) 7.5 K/ L 3.5-10.5 RED BLOOD CELL COUNT (BEAKER) (test imzw=806) 4.30 M/ L 3.93-5.22 HEMOGLOBIN (BEAKER) (test gjao=325) 10.1 GM/DL 11.2-15.7 HEMATOCRIT (BEAKER) (test dnew=538) 32.6 % 34.1-44.9 MEAN CORPUSCULAR VOLUME (BEAKER) (test ztxe=868) 75.8 fL 79.4-94.8 MEAN CORPUSCULAR HEMOGLOBIN (BEAKER) (test 23.5 pg 25.6-32.2 onqh=947) MEAN CORPUSCULAR HEMOGLOBIN CONC (BEAKER) (test 31.0 GM/DL 32.2-35.5 uogh=775) RED CELL DISTRIBUTION WIDTH (BEAKER) (test 14.1 % 11.7-14.4 ujta=919) PLATELET COUNT (BEAKER) (test sbqc=074) 289 K/CU MM 150-450 MEAN PLATELET VOLUME (BEAKER) (test cbip=097) 9.1 fL 9.4-12.3 NUCLEATED RED BLOOD CELLS (BEAKER) (test 0 /100 WBC 0-0 yxws=010) NEUTROPHILS RELATIVE PERCENT (BEAKER) (test 73 % igdu=927) LYMPHOCYTES RELATIVE PERCENT (BEAKER) (test 15 % gevv=532) MONOCYTES RELATIVE PERCENT (BEAKER) (test 9 % ojdi=180) EOSINOPHILS RELATIVE PERCENT (BEAKER) (test 2 % clfy=930) BASOPHILS RELATIVE PERCENT (BEAKER) (test 0 % gspg=480) NEUTROPHILS ABSOLUTE COUNT (BEAKER) (test 5.50 K/ L 1.56-6.13 idjm=007) LYMPHOCYTES ABSOLUTE COUNT (BEAKER) (test 1.12 K/ L 1.18-3.74 ibmk=266) MONOCYTES ABSOLUTE COUNT (BEAKER) (test 0.67 K/ L 0.24-0.36 cqih=295) EOSINOPHILS ABSOLUTE COUNT (BEAKER) (test 0.16 K/ L 0.04-0.36 pcpi=852) BASOPHILS ABSOLUTE COUNT (BEAKER) (test 0.03 K/ L 0.01-0.08 mxdg=972) IMMATURE GRANULOCYTES-RELATIVE PERCENT (BEAKER) 0 % 0-1 (test udks=9825) [id number] 08:15:00 Test Item Value Reference Range Comments MAGNESIUM (BEAKER) (test iuod=022) 1.7 mg/dL 1.6-2.6 CBC W/PLT COUNT & AUTO [id number] 04:24:00 Test Item Value Reference Range Comments WHITE BLOOD CELL COUNT (BEAKER) (test zqom=473) 6.7 K/ L 3.5-10.5 RED BLOOD CELL COUNT (BEAKER) (test amsg=987) 3.69 M/ L 3.93-5.22 HEMOGLOBIN (BEAKER) (test hxfy=871) 8.6 GM/DL 11.2-15.7 HEMATOCRIT (BEAKER) (test urss=387) 28.5 % 34.1-44.9 MEAN CORPUSCULAR VOLUME (BEAKER) (test bwhv=722) 77.2 fL 79.4-94.8 MEAN CORPUSCULAR HEMOGLOBIN (BEAKER) (test 23.3 pg 25.6-32.2 lwir=410) MEAN CORPUSCULAR HEMOGLOBIN CONC (BEAKER) (test 30.2 GM/DL 32.2-35.5 qspf=052) RED CELL DISTRIBUTION WIDTH (BEAKER) (test 13.7 % 11.7-14.4 eysk=992) PLATELET COUNT (BEAKER) (test hzud=834) 249 K/CU MM 150-450 MEAN PLATELET VOLUME (BEAKER) (test igll=549) 8.8 fL 9.4-12.3 NUCLEATED RED BLOOD CELLS (BEAKER) (test 0 /100 WBC 0-0 rolq=382) NEUTROPHILS RELATIVE PERCENT (BEAKER) (test 64 % pbxd=461) LYMPHOCYTES RELATIVE PERCENT (BEAKER) (test 21 % txxv=649) MONOCYTES RELATIVE PERCENT (BEAKER) (test 12 % fshp=092) EOSINOPHILS RELATIVE PERCENT (BEAKER) (test 3 % walx=518) BASOPHILS RELATIVE PERCENT (BEAKER) (test 0 % bffw=643) NEUTROPHILS ABSOLUTE COUNT (BEAKER) (test 4.23 K/ L 1.56-6.13 hhmj=311) LYMPHOCYTES ABSOLUTE COUNT (BEAKER) (test 1.39 K/ L 1.18-3.74 guht=433) MONOCYTES ABSOLUTE COUNT (BEAKER) (test 0.80 K/ L 0.24-0.36 mxop=415) EOSINOPHILS ABSOLUTE COUNT (BEAKER) (test 0.20 K/ L 0.04-0.36 wlwt=887) BASOPHILS ABSOLUTE COUNT (BEAKER) (test 0.02 K/ L 0.01-0.08 otqh=629) IMMATURE GRANULOCYTES-RELATIVE PERCENT (BEAKER) 0 % 0-1 (test jawp=4358) BASIC METABOLIC [id number] 04:19:00 Test Item Value Reference Range Comments SODIUM (BEAKER) (test 139 meq/L 136-145 zdfx=799) POTASSIUM (BEAKER) (test 3.1 meq/L 3.5-5.1 zpvu=694) CHLORIDE (BEAKER) (test 103 meq/L 98-107 avyr=609) CO2 (BEAKER) (test 29 meq/L 22-29 szpg=876) BLOOD UREA NITROGEN 12 mg/dL 7-21 (BEAKER) (test htff=360) CREATININE (BEAKER) (test 0.65 mg/dL 0.57-1.25 xusa=337) GLUCOSE RANDOM (BEAKER) 91 mg/dL 70-105 (test xlxj=946) CALCIUM (BEAKER) (test 8.1 mg/dL 8.4-10.2 xtcg=375) EGFR (BEAKER) (test 87 mL/min/1.73 sq m ESTIMATED GFR IS NOT clpp=6170) ACCURATE CREATININE CLEARANCE IN PREDICTING GLOMERULAR FILTRATION RATE. ESTIMATED GFR IS NOT APPLICABLE FOR DIALYSIS PATIENTS. EEG MONITORING WITH VIDEO RECORDING EACH 24 [id number] 16:19:00Addendum BeginsAddendum:Start time: 45op time: 1613 There [...] 12/16/2017 to DATE OF REPORT 12/16/17 ACC: [id number] Start time: 22: 43 Stop time: 06:45 ICD-10: G93.40 CPT Code: 57088 HISTORY: 82 yo F with history of [...] Fellow Gely Cleary MD, MS Epilepsy/Neurophysiology Attending [facility] METABOLIC [id number] 04:38:00 Test Item Value Reference Range Comments SODIUM (BEAKER) (test 142 meq/L 136-145 jtne=022) POTASSIUM (BEAKER) (test 3.0 meq/L 3.5-5.1 rdur=601) CHLORIDE (BEAKER) (test 104 meq/L 98-107 qxwd=543) CO2 (BEAKER) (test 31 meq/L 22-29 gnmr=873) BLOOD UREA NITROGEN 13 mg/dL 7-21 (BEAKER) (test woga=839) CREATININE (BEAKER) (test 0.64 mg/dL 0.57-1.25 fpfs=806) GLUCOSE RANDOM (BEAKER) 122 mg/dL 70-105 (test muli=147) CALCIUM (BEAKER) (test 8.1 mg/dL 8.4-10.2 fmxm=215) EGFR (BEAKER) (test 89 mL/min/1.73 sq m ESTIMATED GFR IS NOT fjuh=7247) ACCURATE CREATININE CLEARANCE IN PREDICTING GLOMERULAR FILTRATION RATE. ESTIMATED GFR IS NOT APPLICABLE FOR DIALYSIS PATIENTS. CBC W/PLT COUNT & AUTO [id number] 04:03:00 Test Item Value Reference Range Comments WHITE BLOOD CELL COUNT (BEAKER) (test mini=408) 8.6 K/ L 3.5-10.5 RED BLOOD CELL COUNT (BEAKER) (test ckpn=986) 3.94 M/ L 3.93-5.22 HEMOGLOBIN (BEAKER) (test glpm=660) 9.1 GM/DL 11.2-15.7 HEMATOCRIT (BEAKER) (test isxu=848) 30.3 % 34.1-44.9 MEAN CORPUSCULAR VOLUME (BEAKER) (test dsiy=168) 76.9 fL 79.4-94.8 MEAN CORPUSCULAR HEMOGLOBIN (BEAKER) (test 23.1 pg 25.6-32.2 dauh=337) MEAN CORPUSCULAR HEMOGLOBIN CONC (BEAKER) (test 30.0 GM/DL 32.2-35.5 wkru=132) RED CELL DISTRIBUTION WIDTH (BEAKER) (test 13.4 % 11.7-14.4 klys=461) PLATELET COUNT (BEAKER) (test qbgp=618) 287 K/CU MM 150-450 MEAN PLATELET VOLUME (BEAKER) (test madi=890) 8.7 fL 9.4-12.3 NUCLEATED RED BLOOD CELLS (BEAKER) (test 0 /100 WBC 0-0 togt=572) NEUTROPHILS RELATIVE PERCENT (BEAKER) (test 74 % oetj=748) LYMPHOCYTES RELATIVE PERCENT (BEAKER) (test 16 % kiuu=469) MONOCYTES RELATIVE PERCENT (BEAKER) (test 9 % hohg=348) EOSINOPHILS RELATIVE PERCENT (BEAKER) (test 1 % jvzw=356) BASOPHILS RELATIVE PERCENT (BEAKER) (test 0 % ypcw=218) NEUTROPHILS ABSOLUTE COUNT (BEAKER) (test 6.35 K/ L 1.56-6.13 yovy=931) LYMPHOCYTES ABSOLUTE COUNT (BEAKER) (test 1.35 K/ L 1.18-3.74 vnef=573) MONOCYTES ABSOLUTE COUNT (BEAKER) (test 0.80 K/ L 0.24-0.36 fpiy=108) EOSINOPHILS ABSOLUTE COUNT (BEAKER) (test 0.08 K/ L 0.04-0.36 dvpa=450) BASOPHILS ABSOLUTE COUNT (BEAKER) (test 0.03 K/ L 0.01-0.08 hgtn=238) IMMATURE GRANULOCYTES-RELATIVE PERCENT (BEAKER) 0 % 0-1 (test wgru=1497) EEG AWAKE AND [id number] 23:06:00For STAT EEG- after 5 PM weekdays, weekends and holidays, page the on-call network programmer Reason for exam:->seizure, AMSDATE OF TEST: 1/21/18DATE OF REPORT 12/16/17ACC: [id number]: [id number] time : 22:22Stop time: 22:43ICD-10: G93.40CPT Code: 42541 HISTORY: 82 yo F with history of [...] Fellow Nabila Sanchez M.D., FACNSProfessor of NeurologyDirector, [facility] Neuro[facility] Electronically signed by: NABILA Foreman 12/16/2017 11:06 PMRAD, CHEST, 1 VIEW, NON [id number] 21:41: 00Reason for exam:->concern for PNAShould this [...] MDReport Verified Date/Time: 12/16/2017 21:41:51 Reading Location: [address] Reading Room [id number] 19:57:00 Test Item Value Reference Range Comments FERRITIN (BEAKER) (test gclw=456) 36 ng/mL 5-275 VITAMIN D, [id number] 19:57:00 Test Item Value Reference Range Comments VITAMIN D 25-OH (BEAKER) (test luei=3998) 8.2 ng/mL 6.6-49.9 Effective 09/05/2017: Reference Range ChangeNew: 6.6-49.9 ng/mL Previous: 13.0 -47.8 ng/mLRecommended Vitamin D Target Range: 30.0-40.0 ng/mLTSH/FREE T4 IF [id number] 19:57:00 Test Item Value Reference Range Comments THYROID STIMULATING HORMONE (BEAKER) (test 3.15 uIU/mL 0.35-4.94 mylg=424) VITAMIN B12 AND [id number] 19:57:00 Test Item Value Reference Range Comments VITAMIN B12 (BEAKER) (test icis=439) 376 pg/mL 213-816 FOLATE (BEAKER) (test xgvy=233) 15.8 ng/mL >=7.0 URINALYSIS W/ [id number] 19:28:00 Test Item Value Reference Range Comments COLOR (BEAKER) (test osim=471) Yellow CLARITY (BEAKER) (test piig=235) Clear SPECIFIC GRAVITY UA (BEAKER) (test iqdx=784) 1.017 1.001-1.035 PH UA (BEAKER) (test pyab=887) 5.5 5.0-8.0 PROTEIN UA (BEAKER) (test ecpg=790) 50 mg/dL Negative GLUCOSE UA (BEAKER) (test mggh=269) Negative Negative KETONES UA (BEAKER) (test jdgo=365) 40 mg/dL Negative BILIRUBIN UA (BEAKER) (test phdy=216) Negative Negative BLOOD UA (BEAKER) (test hmry=399) Negative Negative NITRITE UA (BEAKER) (test vvxe=592) Negative Negative LEUKOCYTE ESTERASE UA (BEAKER) (test hqzy=387) Moderate Negative UROBILINOGEN UA (BEAKER) (test njfq=311) 0.2 mg/dL 0.2-1.0 RBC UA (BEAKER) (test fgbd=607) 1 /HPF WBC UA (BEAKER) (test rvre=891) 55 /HPF BACTERIA (BEAKER) (test hpih=920) Occasional MUCUS (BEAKER) (test sssl=0140) Many HYALINE CASTS (BEAKER) (test kdsa=403) 10 /LPF SOURCE(BEAKER) (test qtbi=9280) Urine, [place] IRON, TIBC, % SAT. (WITHOUT FERRITIN)2017-12-16 19:21:00 Test Item Value Reference Range Comments IRON (BEAKER) (test tgan=823) 24 ug/dL 40-160 TOTAL IRON BINDING CAPACITY (BEAKER) (test 309 ug/dL 250-450 teje=086) IRON % SATURATION (2) (BEAKER) (test gfeg=3596) 8 % 20-55 BASIC METABOLIC [id number] 19:20:00 Test Item Value Reference Range Comments SODIUM (BEAKER) (test 141 meq/L 136-145 wfnt=426) POTASSIUM (BEAKER) (test 4.0 meq/L 3.5-5.1 Specimen moderately lovy=424) hemolyzed CHLORIDE (BEAKER) (test 102 meq/L 98-107 egbq=220) CO2 (BEAKER) (test 30 meq/L 22-29 hdzr=925) BLOOD UREA NITROGEN 12 mg/dL 7-21 (BEAKER) (test kxft=631) CREATININE (BEAKER) (test 0.66 mg/dL 0.57-1.25 Specimen moderately flju=786) hemolyzed GLUCOSE RANDOM (BEAKER) 102 mg/dL 70-105 (test mshg=764) CALCIUM (BEAKER) (test 8.3 mg/dL 8.4-10.2 rjlk=485) EGFR (BEAKER) (test 86 mL/min/1.73 sq m ESTIMATED GFR IS NOT jiod=9508) ACCURATE CREATININE CLEARANCE IN PREDICTING GLOMERULAR FILTRATION RATE. ESTIMATED GFR IS NOT APPLICABLE FOR DIALYSIS PATIENTS. CBC W/PLT COUNT & AUTO [id number] 19:06:00 Test Item Value Reference Range Comments WHITE BLOOD CELL COUNT (BEAKER) (test jnyd=289) 8.2 K/ L 3.5-10.5 RED BLOOD CELL COUNT (BEAKER) (test isih=575) 4.05 M/ L 3.93-5.22 HEMOGLOBIN (BEAKER) (test bemj=576) 9.4 GM/DL 11.2-15.7 HEMATOCRIT (BEAKER) (test ynan=350) 30.9 % 34.1-44.9 MEAN CORPUSCULAR VOLUME (BEAKER) (test wpop=886) 76.3 fL 79.4-94.8 MEAN CORPUSCULAR HEMOGLOBIN (BEAKER) (test 23.2 pg 25.6-32.2 tobj=345) MEAN CORPUSCULAR HEMOGLOBIN CONC (BEAKER) (test 30.4 GM/DL 32.2-35.5 jvak=667) RED CELL DISTRIBUTION WIDTH (BEAKER) (test 13.6 % 11.7-14.4 lfik=590) PLATELET COUNT (BEAKER) (test aibq=831) 301 K/CU MM 150-450 MEAN PLATELET VOLUME (BEAKER) (test yvsq=263) 8.7 fL 9.4-12.3 NUCLEATED RED BLOOD CELLS (BEAKER) (test 0 /100 WBC 0-0 wmoh=826) NEUTROPHILS RELATIVE PERCENT (BEAKER) (test 78 % lynv=050) LYMPHOCYTES RELATIVE PERCENT (BEAKER) (test 13 % xovh=163) MONOCYTES RELATIVE PERCENT (BEAKER) (test 9 % yyev=463) EOSINOPHILS RELATIVE PERCENT (BEAKER) (test 1 % wxoa=389) BASOPHILS RELATIVE PERCENT (BEAKER) (test 0 % wvef=332) NEUTROPHILS ABSOLUTE COUNT (BEAKER) (test 6.35 K/ L 1.56-6.13 afzm=254) LYMPHOCYTES ABSOLUTE COUNT (BEAKER) (test 1.06 K/ L 1.18-3.74 kyqt=532) MONOCYTES ABSOLUTE COUNT (BEAKER) (test 0.70 K/ L 0.24-0.36 wrls=359) EOSINOPHILS ABSOLUTE COUNT (BEAKER) (test 0.04 K/ L 0.04-0.36 suti=058) BASOPHILS ABSOLUTE COUNT (BEAKER) (test 0.03 K/ L 0.01-0.08 cwfj=586) IMMATURE GRANULOCYTES-RELATIVE PERCENT (BEAKER) 0 % 0-1 (test zvge=6754)
--- OUTSIDE RECORDS SUMMARY | 2018-08-19 11:59 | XMS REPORT | Clinical Summary ---
:1935 Author Organization [facility] Address [address] [place] [address] Phone Care Team Providers Name Role Phone [...] type;Hypothyroidism, unspecified type;Acute cystitis without hematuria after 08/18/2017 Social History Tobacco Use Types Packs/Day Years Used Date Never Smoker Smokeless Tobacco: Never Used Sex Assigned at Date Recorded Not on file Last Filed Vital Signs Vital Sign Reading Time Taken Blood Pressure 157/77 12/20/2017 11:34 AM SIZING MACHINE AND DRIER OPERATOR Pulse 76 12/20/2017 11:34 AM SIZING MACHINE AND DRIER OPERATOR Temperature 36.5 C (97.7 F) 12/20/2017 11:34 AM SIZING MACHINE AND DRIER OPERATOR Respiratory Rate 18 12/20/2017 11:34 AM SIZING MACHINE AND DRIER OPERATOR Oxygen Saturation 98% 12/20/2017 11:34 AM SIZING MACHINE AND DRIER OPERATOR Inhaled Oxygen Concentration - - Weight 54 kg (119 lb) 12/20/2017 5:00 AM SIZING MACHINE AND DRIER OPERATOR Height 157.5 cm (5' 2") 12/16/2017 5:25 PM SIZING MACHINE AND DRIER OPERATOR Body Mass Index 21.77 12/20/2017 5:00 AM SIZING MACHINE AND DRIER OPERATOR Plan of Treatment Not on file Results RHYTHM STRIP - SCAN (12/21/2017 2:41 PM)Magnesium (12/19/2017 7:31 AM)Only the most recent of2 resultswithin the time period is included. Component Value Ref Range Magnesium 2.2Comment: Specimen slightly hemolyzed 1.6 - 2.6 mg/dL Specimen Performing Laboratory Blood - Line, Venous [facility] [address] [address] Basic Metabolic Panel (12/19/2017 7:31 AM)Only the [...] Specimen Performing Laboratory Blood - Line, Venous [address] [address] CBC with platelet count + automated diff [...] Specimen Performing Laboratory Blood - Line, Venous [address] [address] CBC with platelet count + automated diff (12/19/2017 6:58 AM)Only the most recent of4 resultswithin the time period is included. Specimen Performing Laboratory Blood Narrative The following orders were created for panel order CBC with platelet count + automated diff. Procedure Abnormality Status --------- ------ CBC with platelet count ...[[id number]]AbnormalFinal result Please view results for these tests [...] to 12/17/2017 DATE OF REPORT 12/16/17 ACC: [id number] Start time: 22:43 Stop time: 06:45 ICD-10: G93.40 CPT Code: 88914 HISTORY: 82 yo F with history of chronic pain, chronic Lozano, osteoporosis, HTN, who was transferred from [facility] for AMS and seizures. UDS + (patient [...] External Ris In - 12/17/2017 4:19 PM SIZING MACHINE AND DRIER OPERATOR Addendum Begins Addendum: Start time: 0645 [...] to 12/17/2017 DATE OF REPORT 12/16/17 ACC: [id number] Start time: 22:43 Stop time: 06:45 ICD-10: G93.40 CPT Code: 03486 HISTORY: 82 yo F with history of [...] TEST: 12/16/17 DATE OF REPORT 12/16/17 ACC: [id number] EE-[id number] Start time: 22:22 Stop time: 22:43 ICD-10: G93.40 CPT Code: 45006 HISTORY: 82 yo F with history of [...] Galeas MD Epilepsy Fellow Nabila Sanchez M.D., [facility] Professor of Neurology Director, [facility] Epilepsy [place], [facility] Neurophysiology Lab Procedure Note Interface, External Ris In - 12/16/2017 11:06 PM SIZING MACHINE AND DRIER OPERATOR DATE OF TEST: 12/16/17 DATE OF REPORT 12/16/17 ACC: [id number] Start time: 22:22 Stop time: 22:43 ICD-10: G93.40 CPT Code: 25421 HISTORY: 82 yo F with history of chronic pain, chronic Lozano, osteoporosis, HTN, who was transferred from [facility] for AMS and seizures. UDS + (patient [...] Galeas MD Epilepsy Fellow Nabila Sanchez M.D., [facility] Professor of Neurology Director, [facility]ilepsy [place], [facility] Lab chest 1 view portable [...] MD Report Verified Date/Time:12/16/2017 21:41:51 Reading Location: [address] Reading Room Procedure Note Interface, External Ris In - 12/16/2017 9:44 PM SIZING MACHINE AND DRIER OPERATOR FINAL REPORT INDICATION: concern for PNA COMPARISON: None TECHNIQUE: Single frontal view of the chest. FINDINGS: Limited by severe scoliosis and contractures. Lungs and pleura: Clear lungs. No effusion. Heart and mediastinum: Normal heart size. Unremarkable mediastinal contours. Osseous structures: No acute abnormality. Other: None. IMPRESSION: No acute intrathoracic abnormality. Signed: JR Lamb Robert MD Report Verified Date/Time: 12/16/2017 21:41:51 Reading Location: [address] Reading Room Urine culture (12/16/2017 8:45 PM) Component Value Ref Range Result Result >100,000 col/mL Citrobacter braakii (A) Specimen Performing Laboratory Urine - Urine, [place] [address] [address] Organism Antibiotic Method Susceptibility Citrobacter braakii Amikacin [...] 15.8 >=7.0 ng/mL Specimen Performing Laboratory Blood [address] [address] TSH/Free T4 If Indicated (12/16/2017 6:50 PM) Component Value Ref Range TSH 3.15 0.35 - 4.94 uIU/mL Specimen Performing Laboratory Blood [address] [address] Iron, TIBC, % sat. (without ferritin) (12/16/2017 6:50 PM) Component Value Ref Range Iron 24 (L) 40 - 160 ug/dL TIBC 309 250 - 450 ug/dL Iron % Saturation 8 (L) 20 - 55 % Specimen Performing Laboratory [address] [address] Vitamin D, 25-Hydroxy (12/16/2017 6:50 PM) Component Value Ref Range Vitamin D 25-Hydroxy 8.2 6.6 - 49.9 ng/mL Specimen Performing Laboratory Blood [address] [address] Narrative Effective 09/05/2017: Reference Range Change New: 6.6-49.9 ng/mL Previous: 13.0-47.8 ng/mL Recommended Vitamin D Target Range: 30.0-40.0 ng/mL Blood culture (12/16/2017 6:50 PM) Component Value Ref Range Result No growth in 5 days Specimen Performing Laboratory Blood - Arm, Right [address] [address] Urinalysis w/ Microscopic (12/16/2017 6:50 PM) Component Value Ref Range Color, UA Yellow Clarity, UA Clear Specific Brimley, UA 1.017 1.001 - 1.035 pH, UA [...] Specimen Performing Laboratory Urine - Urine, [place] [address] [address] Ferritin (12/16/2017 6:50 PM) Component Value Ref Range Ferritin 36 5 - 275 ng/mL Specimen Performing Laboratory Blood [address] [address] after 08/18/2017
== END 2018-08-17 21:54 | disposition home or self-care (01) ==
LOC: ER 19:27
DX: I11.9 Hypertensive heart disease without heart failure (principal); Z88.6 Allergy status to analgesic agent; Z88.2 Allergy status to sulfonamides; Z88.8 Allergy status to other drugs, medicaments and biological substances
CPT/HCPCS: 96372; 99283; J2175

== ENCOUNTER 2018-10-01 19:39 | Emergency (ER) | payer OTHER ==
--- OUTSIDE RECORDS SUMMARY | 2018-10-01 19:41 | XMS REPORT ---
:1935 Author Organization [facility] Address [address] [place] [address] [address] [place] [address] Care Team Providers Name Role Phone NICHOLE PEREZ Unavailable Unavailable Problems This patient has no known problems. Allergies, Adverse Reactions, Alerts This patient has no known allergies or adverse reactions. Medications This patient has no known medications. Results Test Description Test Time Test Comments Text Results Atomic Results Result Comments BLOOD CULTURE 2017-12-22 05:01:00 Test Item Value Reference Range Comments CULTURE (BEAKER) (test dtge=6972) No growth in 5 days [id number] 11:31:00 Test Item Value Reference Range Comments MAGNESIUM (BEAKER) (test 2.2 mg/dL 1.6-2.6 Specimen slightly hemolyzed lthh=101) BASIC METABOLIC [id number] 11:31:00 Test Item Value Reference Range Comments SODIUM (BEAKER) (test 139 meq/L 136-145 khcr=252) POTASSIUM (BEAKER) (test 4.0 meq/L 3.5-5.1 Specimen slightly qdnq=739) hemolyzed CHLORIDE (BEAKER) (test 104 meq/L 98-107 redw=942) CO2 (BEAKER) (test 27 meq/L 22-29 xctp=693) BLOOD UREA NITROGEN 7 mg/dL 7-21 (BEAKER) (test djld=194) CREATININE (BEAKER) (test 0.60 mg/dL 0.57-1.25 Specimen slightly fpqy=528) hemolyzed GLUCOSE RANDOM (BEAKER) 113 mg/dL 70-105 (test ggjp=093) CALCIUM (BEAKER) (test 8.3 mg/dL 8.4-10.2 fssq=422) EGFR (BEAKER) (test 95 mL/min/1.73 sq m ESTIMATED GFR IS NOT cjrd=0637) ACCURATE CREATININE CLEARANCE IN PREDICTING GLOMERULAR FILTRATION RATE. ESTIMATED GFR IS NOT APPLICABLE FOR DIALYSIS PATIENTS. URINE [id number] 09:10:00 Test Item Value Reference Range Comments CULTURE (BEAKER) (test zqll=5100) Amikacin (test code=1) Aztreonam (test code=32) Cefepime (test code=51) Cefoxitin (test code=68) Ceftazidime (test code=27) Ceftriaxone (test code=52) Ertapenem (test code=38) Gentamicin (test code=18) Levofloxacin (test code=22) Meropenem (test code=34) Nitrofurantoin (test code=23) Piperacillin + Tazobactam (test code=29) Tetracycline (test code=2) Tobramycin (test code=25) Trimethoprim + Sulfamethoxazole (test code=47) CULTURE (BEAKER) (test sqqb=9124) >100,000 col/mL Citrobacter braakii CBC W/PLT COUNT & AUTO [id number] 07:05:00 Test Item Value Reference Range Comments WHITE BLOOD CELL COUNT (BEAKER) (test kqbj=594) 7.5 K/ L 3.5-10.5 RED BLOOD CELL COUNT (BEAKER) (test dmmf=854) 4.30 M/ L 3.93-5.22 HEMOGLOBIN (BEAKER) (test umei=927) 10.1 GM/DL 11.2-15.7 HEMATOCRIT (BEAKER) (test gqqx=387) 32.6 % 34.1-44.9 MEAN CORPUSCULAR VOLUME (BEAKER) (test hzbq=094) 75.8 fL 79.4-94.8 MEAN CORPUSCULAR HEMOGLOBIN (BEAKER) (test 23.5 pg 25.6-32.2 cwoc=003) MEAN CORPUSCULAR HEMOGLOBIN CONC (BEAKER) (test 31.0 GM/DL 32.2-35.5 uoie=352) RED CELL DISTRIBUTION WIDTH (BEAKER) (test 14.1 % 11.7-14.4 zvjp=422) PLATELET COUNT (BEAKER) (test edsr=672) 289 K/CU MM 150-450 MEAN PLATELET VOLUME (BEAKER) (test boda=797) 9.1 fL 9.4-12.3 NUCLEATED RED BLOOD CELLS (BEAKER) (test 0 /100 WBC 0-0 zwoa=508) NEUTROPHILS RELATIVE PERCENT (BEAKER) (test 73 % kpuq=850) LYMPHOCYTES RELATIVE PERCENT (BEAKER) (test 15 % trgb=056) MONOCYTES RELATIVE PERCENT (BEAKER) (test 9 % kafp=761) EOSINOPHILS RELATIVE PERCENT (BEAKER) (test 2 % kgcx=427) BASOPHILS RELATIVE PERCENT (BEAKER) (test 0 % fqxv=295) NEUTROPHILS ABSOLUTE COUNT (BEAKER) (test 5.50 K/ L 1.56-6.13 fyen=934) LYMPHOCYTES ABSOLUTE COUNT (BEAKER) (test 1.12 K/ L 1.18-3.74 bway=682) MONOCYTES ABSOLUTE COUNT (BEAKER) (test 0.67 K/ L 0.24-0.36 dwhj=751) EOSINOPHILS ABSOLUTE COUNT (BEAKER) (test 0.16 K/ L 0.04-0.36 qccy=107) BASOPHILS ABSOLUTE COUNT (BEAKER) (test 0.03 K/ L 0.01-0.08 uzfr=536) IMMATURE GRANULOCYTES-RELATIVE PERCENT (BEAKER) 0 % 0-1 (test dwoa=4024) [id number] 08:15:00 Test Item Value Reference Range Comments MAGNESIUM (BEAKER) (test bryx=861) 1.7 mg/dL 1.6-2.6 CBC W/PLT COUNT & AUTO [id number] 04:24:00 Test Item Value Reference Range Comments WHITE BLOOD CELL COUNT (BEAKER) (test ypll=870) 6.7 K/ L 3.5-10.5 RED BLOOD CELL COUNT (BEAKER) (test errt=700) 3.69 M/ L 3.93-5.22 HEMOGLOBIN (BEAKER) (test jfcj=064) 8.6 GM/DL 11.2-15.7 HEMATOCRIT (BEAKER) (test fuur=862) 28.5 % 34.1-44.9 MEAN CORPUSCULAR VOLUME (BEAKER) (test gpsw=021) 77.2 fL 79.4-94.8 MEAN CORPUSCULAR HEMOGLOBIN (BEAKER) (test 23.3 pg 25.6-32.2 iezk=242) MEAN CORPUSCULAR HEMOGLOBIN CONC (BEAKER) (test 30.2 GM/DL 32.2-35.5 eexp=638) RED CELL DISTRIBUTION WIDTH (BEAKER) (test 13.7 % 11.7-14.4 hcwz=430) PLATELET COUNT (BEAKER) (test kszp=498) 249 K/CU MM 150-450 MEAN PLATELET VOLUME (BEAKER) (test zfeb=323) 8.8 fL 9.4-12.3 NUCLEATED RED BLOOD CELLS (BEAKER) (test 0 /100 WBC 0-0 rhhk=690) NEUTROPHILS RELATIVE PERCENT (BEAKER) (test 64 % wmwm=501) LYMPHOCYTES RELATIVE PERCENT (BEAKER) (test 21 % wfgf=273) MONOCYTES RELATIVE PERCENT (BEAKER) (test 12 % ulga=204) EOSINOPHILS RELATIVE PERCENT (BEAKER) (test 3 % sdfb=255) BASOPHILS RELATIVE PERCENT (BEAKER) (test 0 % beuu=891) NEUTROPHILS ABSOLUTE COUNT (BEAKER) (test 4.23 K/ L 1.56-6.13 hkpt=452) LYMPHOCYTES ABSOLUTE COUNT (BEAKER) (test 1.39 K/ L 1.18-3.74 knzn=825) MONOCYTES ABSOLUTE COUNT (BEAKER) (test 0.80 K/ L 0.24-0.36 hkur=801) EOSINOPHILS ABSOLUTE COUNT (BEAKER) (test 0.20 K/ L 0.04-0.36 brrq=346) BASOPHILS ABSOLUTE COUNT (BEAKER) (test 0.02 K/ L 0.01-0.08 zvnm=710) IMMATURE GRANULOCYTES-RELATIVE PERCENT (BEAKER) 0 % 0-1 (test jlga=6349) BASIC METABOLIC [id number] 04:19:00 Test Item Value Reference Range Comments SODIUM (BEAKER) (test 139 meq/L 136-145 ftln=939) POTASSIUM (BEAKER) (test 3.1 meq/L 3.5-5.1 yeql=469) CHLORIDE (BEAKER) (test 103 meq/L 98-107 attu=551) CO2 (BEAKER) (test 29 meq/L 22-29 nyny=856) BLOOD UREA NITROGEN 12 mg/dL 7-21 (BEAKER) (test olxm=886) CREATININE (BEAKER) (test 0.65 mg/dL 0.57-1.25 zwyh=560) GLUCOSE RANDOM (BEAKER) 91 mg/dL 70-105 (test dffs=528) CALCIUM (BEAKER) (test 8.1 mg/dL 8.4-10.2 vhfa=348) EGFR (BEAKER) (test 87 mL/min/1.73 sq m ESTIMATED GFR IS NOT nwwz=6722) ACCURATE CREATININE CLEARANCE IN PREDICTING GLOMERULAR FILTRATION RATE. ESTIMATED GFR IS NOT APPLICABLE FOR DIALYSIS PATIENTS. EEG MONITORING WITH VIDEO RECORDING EACH 24 [id number] 16:19:00Addendum BeginsAddendum:Start time: 0645Stop time: 1613 There [...] 12/16/2017 to DATE OF REPORT 12/16/17 ACC: [id number] [id number] Start time: 22: 43 Stop time: 06:45 ICD-10: G93.40 CPT Code: 46433 HISTORY: 82 yo F with history of [...] Fellow Gely Cleary MD, MS Epilepsy/Neurophysiology Attending [facility] METABOLIC [id number] 04:38:00 Test Item Value Reference Range Comments SODIUM (BEAKER) (test 142 meq/L 136-145 mesb=953) POTASSIUM (BEAKER) (test 3.0 meq/L 3.5-5.1 scah=254) CHLORIDE (BEAKER) (test 104 meq/L 98-107 aqsd=836) CO2 (BEAKER) (test 31 meq/L 22-29 wtwn=936) BLOOD UREA NITROGEN 13 mg/dL 7-21 (BEAKER) (test bscq=669) CREATININE (BEAKER) (test 0.64 mg/dL 0.57-1.25 jvdh=989) GLUCOSE RANDOM (BEAKER) 122 mg/dL 70-105 (test zvvx=524) CALCIUM (BEAKER) (test 8.1 mg/dL 8.4-10.2 hsui=466) EGFR (BEAKER) (test 89 mL/min/1.73 sq m ESTIMATED GFR IS NOT rein=4887) ACCURATE CREATININE CLEARANCE IN PREDICTING GLOMERULAR FILTRATION RATE. ESTIMATED GFR IS NOT APPLICABLE FOR DIALYSIS PATIENTS. CBC W/PLT COUNT & AUTO [id number] 04:03:00 Test Item Value Reference Range Comments WHITE BLOOD CELL COUNT (BEAKER) (test szyo=807) 8.6 K/ L 3.5-10.5 RED BLOOD CELL COUNT (BEAKER) (test miga=011) 3.94 M/ L 3.93-5.22 HEMOGLOBIN (BEAKER) (test zsox=378) 9.1 GM/DL 11.2-15.7 HEMATOCRIT (BEAKER) (test ociv=581) 30.3 % 34.1-44.9 MEAN CORPUSCULAR VOLUME (BEAKER) (test smwn=597) 76.9 fL 79.4-94.8 MEAN CORPUSCULAR HEMOGLOBIN (BEAKER) (test 23.1 pg 25.6-32.2 immb=927) MEAN CORPUSCULAR HEMOGLOBIN CONC (BEAKER) (test 30.0 GM/DL 32.2-35.5 hupe=010) RED CELL DISTRIBUTION WIDTH (BEAKER) (test 13.4 % 11.7-14.4 kiys=800) PLATELET COUNT (BEAKER) (test tgyv=503) 287 K/CU MM 150-450 MEAN PLATELET VOLUME (BEAKER) (test zdqr=921) 8.7 fL 9.4-12.3 NUCLEATED RED BLOOD CELLS (BEAKER) (test 0 /100 WBC 0-0 gnrp=593) NEUTROPHILS RELATIVE PERCENT (BEAKER) (test 74 % daaa=254) LYMPHOCYTES RELATIVE PERCENT (BEAKER) (test 16 % uqfl=043) MONOCYTES RELATIVE PERCENT (BEAKER) (test 9 % nznz=273) EOSINOPHILS RELATIVE PERCENT (BEAKER) (test 1 % lasn=751) BASOPHILS RELATIVE PERCENT (BEAKER) (test 0 % gsap=281) NEUTROPHILS ABSOLUTE COUNT (BEAKER) (test 6.35 K/ L 1.56-6.13 pyyq=199) LYMPHOCYTES ABSOLUTE COUNT (BEAKER) (test 1.35 K/ L 1.18-3.74 nlul=715) MONOCYTES ABSOLUTE COUNT (BEAKER) (test 0.80 K/ L 0.24-0.36 peqn=371) EOSINOPHILS ABSOLUTE COUNT (BEAKER) (test 0.08 K/ L 0.04-0.36 qcpb=870) BASOPHILS ABSOLUTE COUNT (BEAKER) (test 0.03 K/ L 0.01-0.08 xkdl=767) IMMATURE GRANULOCYTES-RELATIVE PERCENT (BEAKER) 0 % 0-1 (test ahpo=0396) EEG AWAKE AND [id number] 23:06:00For STAT EEG- after 5 PM weekdays, weekends and holidays, page the on-call infant lead teacher Reason for exam:->seizure, AMSDATE OF TEST: 1/21/18DATE OF REPORT 12/16/17ACC: [id number]: [id number] time : 22:22Stop time: 22:43ICD-10: G93.40CPT Code: 37566 HISTORY: 82 yo F with history of [...] Fellow Nabila Sanchez M.D., FACNSProfessor of NeurologyDirector, [facility]psy[facility] Neuro[facility] Lab Electronically signed by: NABILA Foreman 12/16/2017 11:06 PMRAD, CHEST, 1 VIEW, NON [id number] 21:41: 00Reason for exam:->concern for PNAShould this [...] Verified Date/Time: 12/16/2017 21:41:51 Reading Location: [address] Reading Room [id number] 19:57:00 Test Item Value Reference Range Comments FERRITIN (BEAKER) (test fflu=003) 36 ng/mL 5-275 VITAMIN D, [id number] 19:57:00 Test Item Value Reference Range Comments VITAMIN D 25-OH (BEAKER) (test cuvl=5971) 8.2 ng/mL 6.6-49.9 Effective 09/05/2017: Reference Range ChangeNew: 6.6-49.9 ng/mL Previous: 13.0 -47.8 ng/mLRecommended Vitamin D Target Range: 30.0-40.0 ng/mLTSH/FREE T4 IF [id number] 19:57:00 Test Item Value Reference Range Comments THYROID STIMULATING HORMONE (BEAKER) (test 3.15 uIU/mL 0.35-4.94 gcbo=959) VITAMIN B12 AND [id number] 19:57:00 Test Item Value Reference Range Comments VITAMIN B12 (BEAKER) (test heds=969) 376 pg/mL 213-816 FOLATE (BEAKER) (test nsht=878) 15.8 ng/mL >=7.0 URINALYSIS W/ [id number] 19:28:00 Test Item Value Reference Range Comments COLOR (BEAKER) (test kpak=035) Yellow CLARITY (BEAKER) (test vzie=502) Clear SPECIFIC GRAVITY UA (BEAKER) (test thnn=202) 1.017 1.001-1.035 PH UA (BEAKER) (test qxzh=297) 5.5 5.0-8.0 PROTEIN UA (BEAKER) (test jgnz=394) 50 mg/dL Negative GLUCOSE UA (BEAKER) (test bvyf=065) Negative Negative KETONES UA (BEAKER) (test olat=883) 40 mg/dL Negative BILIRUBIN UA (BEAKER) (test tpug=174) Negative Negative BLOOD UA (BEAKER) (test rduo=088) Negative Negative NITRITE UA (BEAKER) (test vhks=788) Negative Negative LEUKOCYTE ESTERASE UA (BEAKER) (test oofp=978) Moderate Negative UROBILINOGEN UA (BEAKER) (test aqqj=582) 0.2 mg/dL 0.2-1.0 RBC UA (BEAKER) (test nerl=857) 1 /HPF WBC UA (BEAKER) (test cpgo=191) 55 /HPF BACTERIA (BEAKER) (test dibq=664) Occasional MUCUS (BEAKER) (test wxtr=0878) Many HYALINE CASTS (BEAKER) (test mxiu=588) 10 /LPF SOURCE(BEAKER) (test kimy=9521) Urine, [place] IRON, TIBC, % SAT. (WITHOUT FERRITIN)2017-12-16 19:21:00 Test Item Value Reference Range Comments IRON (BEAKER) (test lqys=578) 24 ug/dL 40-160 TOTAL IRON BINDING CAPACITY (BEAKER) (test 309 ug/dL 250-450 rkea=136) IRON % SATURATION (2) (BEAKER) (test aqps=8762) 8 % 20-55 BASIC METABOLIC [id number] 19:20:00 Test Item Value Reference Range Comments SODIUM (BEAKER) (test 141 meq/L 136-145 iloe=456) POTASSIUM (BEAKER) (test 4.0 meq/L 3.5-5.1 Specimen moderately keuh=298) hemolyzed CHLORIDE (BEAKER) (test 102 meq/L 98-107 eorl=451) CO2 (BEAKER) (test 30 meq/L 22-29 wnnb=671) BLOOD UREA NITROGEN 12 mg/dL 7-21 (BEAKER) (test fomx=805) CREATININE (BEAKER) (test 0.66 mg/dL 0.57-1.25 Specimen moderately svpk=328) hemolyzed GLUCOSE RANDOM (BEAKER) 102 mg/dL 70-105 (test nddw=415) CALCIUM (BEAKER) (test 8.3 mg/dL 8.4-10.2 wqeg=393) EGFR (BEAKER) (test 86 mL/min/1.73 sq m ESTIMATED GFR IS NOT lwro=3418) ACCURATE CREATININE CLEARANCE IN PREDICTING GLOMERULAR FILTRATION RATE. ESTIMATED GFR IS NOT APPLICABLE FOR DIALYSIS PATIENTS. CBC W/PLT COUNT & AUTO [id number] 19:06:00 Test Item Value Reference Range Comments WHITE BLOOD CELL COUNT (BEAKER) (test kmow=448) 8.2 K/ L 3.5-10.5 RED BLOOD CELL COUNT (BEAKER) (test ueyk=234) 4.05 M/ L 3.93-5.22 HEMOGLOBIN (BEAKER) (test wnfz=198) 9.4 GM/DL 11.2-15.7 HEMATOCRIT (BEAKER) (test wngb=093) 30.9 % 34.1-44.9 MEAN CORPUSCULAR VOLUME (BEAKER) (test atst=162) 76.3 fL 79.4-94.8 MEAN CORPUSCULAR HEMOGLOBIN (BEAKER) (test 23.2 pg 25.6-32.2 ctrb=168) MEAN CORPUSCULAR HEMOGLOBIN CONC (BEAKER) (test 30.4 GM/DL 32.2-35.5 susx=919) RED CELL DISTRIBUTION WIDTH (BEAKER) (test 13.6 % 11.7-14.4 ntju=377) PLATELET COUNT (BEAKER) (test ssfq=177) 301 K/CU MM 150-450 MEAN PLATELET VOLUME (BEAKER) (test thrs=954) 8.7 fL 9.4-12.3 NUCLEATED RED BLOOD CELLS (BEAKER) (test 0 /100 WBC 0-0 mfaw=413) NEUTROPHILS RELATIVE PERCENT (BEAKER) (test 78 % utfe=195) LYMPHOCYTES RELATIVE PERCENT (BEAKER) (test 13 % triu=959) MONOCYTES RELATIVE PERCENT (BEAKER) (test 9 % owlo=261) EOSINOPHILS RELATIVE PERCENT (BEAKER) (test 1 % tddi=805) BASOPHILS RELATIVE PERCENT (BEAKER) (test 0 % shcp=397) NEUTROPHILS ABSOLUTE COUNT (BEAKER) (test 6.35 K/ L 1.56-6.13 ejbg=384) LYMPHOCYTES ABSOLUTE COUNT (BEAKER) (test 1.06 K/ L 1.18-3.74 rqft=457) MONOCYTES ABSOLUTE COUNT (BEAKER) (test 0.70 K/ L 0.24-0.36 evsx=701) EOSINOPHILS ABSOLUTE COUNT (BEAKER) (test 0.04 K/ L 0.04-0.36 yisi=367) BASOPHILS ABSOLUTE COUNT (BEAKER) (test 0.03 K/ L 0.01-0.08 cdff=991) IMMATURE GRANULOCYTES-RELATIVE PERCENT (BEAKER) 0 % 0-1 (test udji=4936)
--- OUTSIDE RECORDS SUMMARY | 2018-10-01 19:41 | XMS REPORT | Clinical Summary ---
:1935 Author Organization [facility] Address [address] [place] [address] Care Team Providers Name Role Phone Thang Montero MD Primary Care Provider Allergies Active Allergy Reactions Severity Noted Date Comments Aspirin Nausea And Vomiting 12/16/2017 Cefaclor 12/16/2017 Celecoxib 12/16/2017 Cephalexin Hives High 12/16/2017 Per patient Chlorpromazine 12/16/2017 Meperidine 12/16/2017 Esomeprazole 12/16/2017 Ketorolac 12/16/2017 Sulfa (Sulfonamide Antibiotics) 12/16/2017 Sumatriptan 12/16/2017 Medications Medication Sig Dispensed Refills Start Date End Date Status diclofenac Take 50 mg by 0 Active (VOLTAREN) 50 MG EC mouth 2 (two) tablet times daily. nitroglycerin Place 0.4 mg 0 Active (NITROSTAT) 0.4 MG under the SL tablet tongue every 5 (five) minutes as needed for Chest pain Put 1 pill under tongue every 5min as needed for chest pain.No more than 3 doses in 15min.Call 911 if pain is unrelieved 5min after 1st dose . levothyroxine Take 25 mcg by 0 Active (SYNTHROID, mouth Every LEVOTHROID) 25 MCG morning on an tablet empty stomach. amLODIPine Take 1 tablet 0 12/21/2017 Active (NORVASC) 10 MG (10 mg total) 9 tablet by mouth daily. cloNIDine HCl Take 1 tablet 0 12/20/2017 Active (CATAPRES) 0.1 MG (0.1 mg total) 9 tablet by mouth 3 (three) times daily. acetaminophen-codei Take 1 tablet 0 Discontinued ne (TYLENOL #3) by mouth 2 8 300-30 mg per (two) times tablet daily. butalbital-aspirin- Take 1 tablet 0 Discontinued caffeine 50-325-40 by mouth every 8 mg Tab per tablet 4 (four) hours as needed. traMADol (ULTRAM) Take 50 mg by 0 Discontinued 50 mg tablet mouth. 8 azithromycin Take 250 mg by 0 Discontinued (ZITHROMAX) 250 MG mouth daily 8 tablet Take by mouth as directed. . cetirizine (ZYRTEC) Take 10 mg by 0 Discontinued 10 MG tablet mouth daily. 8 cloNIDine HCl Take 0.1 mg by 0 Discontinued (CATAPRES) 0.1 MG mouth 3 (three) 8 tablet times daily. furosemide (LASIX) Take 40 mg by 0 Discontinued 40 MG tablet mouth as needed 8 (for edema). doxycycline Take 100 mg by 0 Discontinued (VIBRAMYCIN) 100 MG mouth 2 (two) 8 capsule times daily. amLODIPine Take 5 mg by 0 Discontinued (NORVASC) 5 MG mouth daily. 8 tablet promethazine Take 25 mg by 0 Discontinued (PHENERGAN) 25 MG mouth every 6 8 tablet (six) hours as needed for Nausea. ondansetron Take 4 mg by 0 Discontinued (ZOFRAN) 4 MG mouth 2 (two) 8 tablet times daily as needed for Nausea. promethazine Place 25 mg 0 Discontinued (PHENERGAN) 25 MG rectally daily. 8 [...] - Hospital Encounter General Internal Lazaridis, Acute encephalopathy; 12/20/2017 Medicine MD Burt Chronic intractable headache, unspecified headache type; Ashley Lopez Hypothyroidism, unspecified type; MD Chantelle Acute cystitis without hematuria after 09/30/2017 Social History Tobacco Use Types Packs/Day Years Used Date Never Smoker Smokeless Tobacco: Never Used Sex Assigned at Date Recorded Not on file Job Start Date Occupation Industry Not on file Not on file Not on file Travel History Travel Start Travel End No recent travel history available. Last Filed Vital Signs Vital Sign Reading Time Taken Blood Pressure 157/77 12/20/2017 11:34 AM [employer] Pulse 76 12/20/2017 11:34 AM [employer] Temperature 36.5 C (97.7 F) 12/20/2017 11:34 AM [employer] Respiratory Rate 18 12/20/2017 11:34 AM [employer] Oxygen Saturation 98% 12/20/2017 11:34 AM [employer] Inhaled Oxygen Concentration - - Weight 54 kg (119 lb) 12/20/2017 5:00 AM [employer] Height 157.5 cm (5' 2") 12/16/2017 5:25 PM [employer] Body Mass Index 21.77 12/20/2017 5:00 AM [employer] Plan of Treatment Not on file Procedures Procedure Name Priority Date/Time Associated Comments Diagnosis RHYTHM STRIP - SCAN 12/21/2017 2:41 PM [employer] MAGNESIUM Routine 12/19/2017 7:31 Results for this AM [employer] procedure are in the results section. BASIC METABOLIC PANEL STAT 12/19/2017 7:31 Results for this (7) AM [employer] procedure are in the results section. CBC W/PLT COUNT & STAT 12/19/2017 6:58 Results for this AUTO DIFFERENTIAL AM [employer] procedure are in the results section. CBC W/PLT COUNT & STAT 12/19/2017 6:58 Results for this AUTO DIFFERENTIAL AM [employer] procedure are in the results section. CBC W/PLT COUNT & Routine 12/18/2017 3:39 Results for this AUTO DIFFERENTIAL AM [employer] procedure are in the results section. MAGNESIUM STAT 12/18/2017 3:39 Results for this AM [employer] procedure are in the results section. CBC W/PLT COUNT & Routine 12/18/2017 3:39 Results for this AUTO DIFFERENTIAL AM [employer] procedure are in the results section. BASIC METABOLIC PANEL Routine 12/18/2017 3:39 Results for this (7) AM [employer] procedure are in the results section. EEG MONITORING WITH Routine 12/17/2017 7:00 Results for this VIDEO RECORDING EACH AM [employer] procedure are in 24 HOURS the results section. CBC W/PLT COUNT & Routine 12/17/2017 3:34 Results for this AUTO DIFFERENTIAL AM [employer] procedure are in the results section. CBC W/PLT COUNT & Routine 12/17/2017 3:34 Results for this AUTO DIFFERENTIAL AM [employer] procedure are in the results section. BASIC METABOLIC PANEL Routine 12/17/2017 3:34 Results for this (7) AM [employer] procedure are in the results section. EEG AWAKE AND DROWSY STAT 12/16/2017 10:33 Results for this PM [employer] procedure are in the results section. XR CHEST 1 VIEW Routine 12/16/2017 9:15 Results for this PORTABLE/BEDSIDE PM [employer] procedure are in the results section. URINE CULTURE Routine 12/16/2017 8:45 Results for this PM [employer] procedure are in the results section. CBC W/PLT COUNT & Routine 12/16/2017 6:50 Results for this AUTO DIFFERENTIAL PM [employer] procedure are in the results section. CBC W/PLT COUNT & Routine 12/16/2017 6:50 Results for this AUTO DIFFERENTIAL PM [employer] procedure are in the results section. VITAMIN D, 25-HYDROXY Routine 12/16/2017 6:50 Results for this PM [employer] procedure are in the results section. VITAMIN B12 AND Routine 12/16/2017 6:50 Results for this FOLATE PM [employer] procedure are in the results section. FERRITIN Routine 12/16/2017 6:50 Results for this PM [employer] procedure are in the results section. IRON, TIBC, % SAT. Routine 12/16/2017 6:50 Results for this (WITHOUT FERRITIN) PM [employer] procedure are in the results section. TSH/FREE T4 IF Routine 12/16/2017 6:50 Results for this INDICATED PM [employer] procedure are in the results section. BASIC METABOLIC PANEL Routine 12/16/2017 6:50 Results for this (7) PM [employer] procedure are in the results section. URINALYSIS W/ Routine 12/16/2017 6:50 Results for this MICROSCOPIC PM [employer] procedure are in the results section. BLOOD CULTURE Routine 12/16/2017 6:50 Results for this PM [employer] procedure are in the results section. after 09/30/2017 Results RHYTHM STRIP - SCAN (12/21/2017 2:41 PM [employer]) Narrative Performed At Magnesium (12/19/2017 7:31 AM [employer])Only the most recent of2 resultswithin the time period is included. Magnesium 2.2Comment: Specimen slightly 1.6 - 2.6 mg/dL [facility] Specimen Blood - Line, Venous Performing Organization Address City/[facility] Phone Number [address] [address] CENTER Basic Metabolic Panel (12/19/2017 7:31 AM [employer])Only the most recent of4 resultswithin the time period is included. Sodium 139 136 - 145 meq/L [facility] Potassium 4.0Comment: Specimen slightly 3.5 - 5.1 meq/L [facility] Chloride 104 98 - 107 meq/L [facility] CO2 27 22 - 29 meq/L [facility] BUN 7 7 - 21 mg/dL [facility] Creatinine 0.60Comment: Specimen 0.57 - 1.25 mg/dL [facility] Glucose 113 (H) 70 - 105 mg/dL [facility] Calcium 8.3 (L) 8.4 - 10.2 mg/dL [facility] EGFR 95Comment: ESTIMATED GFR IS mL/min/1.73 sq m [facility] NOT ACCURATE CREATININE [facility] CLEARANCE IN PREDICTING GLOMERULAR FILTRATION RATE. ESTIMATED GFR IS NOT APPLICABLE FOR DIALYSIS PATIENTS. Specimen Blood - Line, Venous Performing Organization Address City/[facility] Phone Number [address] [address] [phone] [place] CBC with platelet count + automated diff (12/19/2017 6:58 AM [employer])Only the most recent of4 resultswithin the time period is included. WBC 7.5 3.5 - 10.5 K/L [facility] RBC 4.30 3.93 - 5.22 M/L [facility] Hemoglobin 10.1 (L) 11.2 - 15.7 GM/DL [facility] Hematocrit 32.6 (L) 34.1 - 44.9 % [facility] MCV 75.8 (L) 79.4 - 94.8 fL [facility] MCH 23.5 (L) 25.6 - 32.2 pg [facility] MCHC 31.0 (L) 32.2 - 35.5 GM/DL [facility] RDW 14.1 11.7 - 14.4 % [facility] Platelets 289 150 - 450 K/CU MM [facility] MPV 9.1 (L) 9.4 - 12.3 fL [facility] nRBC 0 0 - 0 /100 WBC [facility] % Neutros 73 % [facility] % Lymphs 15 % [facility] % Monos 9 % [facility] % Eos 2 % [facility] % Baso 0 % [facility] # Neutros 5.50 1.56 - 6.13 K/L [facility] # Lymphs 1.12 (L) 1.18 - 3.74 K/L [facility] # Monos 0.67 (H) 0.24 - 0.36 K/L [facility] # Eos 0.16 0.04 - 0.36 K/L [facility] # Baso 0.03 0.01 - 0.08 K/L [facility] Immature Granulocytes-Relative 0 0 - 1 % [facility] Specimen Blood - Line, Venous Performing Organization Address City/State/Zipcode Phone Number [facility] [address] [place] [address] CENTER EEG monitoring with video recording each 24 hours (12/17/2017 7:00 AM [employer]) Narrative Performed At Addendum Begins GE RIS Addendum: Start time: 0645 Stop time: 1613 [...] to 12/17/2017 DATE OF REPORT 12/16/17 ACC: [id number] Start time: 22:43 Stop time: 06:45 ICD-10: G93.40 CPT Code: 22420 HISTORY: 82 yo F with history of chronic pain, chronic Lozano, osteoporosis, HTN, who was transferred from [facility] for AMS and seizures. [...] External Ris In - 12/17/2017 4:19 PM [employer] Addendum Begins Addendum: Start time: 0645 Stop [...] to 12/17/2017 DATE OF REPORT 12/16/17 ACC: [id number] Start time: 22:43 Stop time: 06:45 ICD-10: G93.40 CPT Code: 01778 HISTORY: 82 yo F with history of [...] this recording. Saida Wilkerson MD Neurophysiology Fellow Gley Cleary MD, MS Epilepsy/Neurophysiology Attending Performing Organization Address City/State/Zipcode Phone Number [facility] EEG AWAKE AND DROWSY (12/16/2017 10:33 PM [employer]) Narrative Performed At DATE OF TEST: 12/16/17 [facility] DATE OF REPORT 12/16/17 ACC: [id number] Start time: 22:22 Stop time: 22:43 ICD-10: G93.40 CPT Code: 81931 HISTORY: 82 yo F with history of [...] Galeas MD Epilepsy Fellow Nabila Sanchez M.D., [facility] Professor of Neurology Director, [facility] Epilepsy Center Head, [facility] Neurophysiology Lab Procedure Note Interface, External Ris In - 12/16/2017 11:06 PM [employer] DATE OF TEST: 12/16/17 DATE OF REPORT 12/16/17 ACC: [id number] Start time: 22:22 Stop time: 22:43 ICD-10: G93.40 CPT Code: 35912 HISTORY: 82 yo F with history of chronic pain, chronic Lozano, osteoporosis, HTN, who was transferred from [facility] for AMS and seizures. [...] Galeas MD Epilepsy Fellow Nabila Sanchez M.D., [facility] Professor of Neurology Director, [facility] Epilepsy [place] Head, [facility] Neurophysiology Lab Performing Organization Address City/State/Zipcode Phone Number [facility] XR chest 1 view portable / bedside (12/16/2017 9:15 PM [employer]) Narrative Performed At FINAL REPORT [facility] INDICATION: concern for PNA COMPARISON: None TECHNIQUE: Single frontal view of the chest. FINDINGS: Limited by severe scoliosis and contractures. Lungs and pleura: Clear lungs. No effusion. Heart and mediastinum: Normal heart size. Unremarkable mediastinal contours. Osseous structures: No acute abnormality. Other: None. IMPRESSION: No acute intrathoracic abnormality. Signed: JR Lamb Robert MD Report Verified Date/Time:12/16/2017 21:41:51 Reading Location: [address] Reading Room Procedure Note Interface, External Ris In - 12/16/2017 9:44 PM [employer] FINAL REPORT INDICATION: concern for PNA COMPARISON: None TECHNIQUE: Single frontal view of the chest. FINDINGS: Limited by severe scoliosis and contractures. Lungs and pleura: Clear lungs. No effusion. Heart and mediastinum: Normal heart size. Unremarkable mediastinal contours. Osseous structures: No acute abnormality. Other: None. IMPRESSION: No acute intrathoracic abnormality. Signed: JR Lamb Robert MD Report Verified Date/Time: 12/16/2017 21:41:51 Reading Location: [address] Reading Room Performing Organization Address City/State/Zipcode Phone Number GE RIS Urine culture (12/16/2017 8:45 PM [employer]) Result [facility] Result (A) [facility] Specimen Urine - Urine, [place] Organism Antibiotic Method Susceptibility Citrobacter braakii Amikacin [...] Citrobacter braakii Trimethoprim + Sulfamethoxazole >=320: Resistant Performing Organization Address [facility] Phone Number [address] [address] [phone] CENTER Vitamin B12 and Folate (12/16/2017 6:50 PM [employer]) Vitamin B12 376 213 - 816 pg/mL [facility] Folate 15.8 >=7.0 ng/mL [facility] Specimen Blood Performing Organization Address [facility] Phone Number [address] [address] [phone] CENTER TSH/Free T4 If Indicated (12/16/2017 6:50 PM [employer]) TSH 3.15 0.35 - 4.94 uIU/mL [facility] Specimen Blood Performing Organization Address [facility]/Zipcode Phone Number [address] [address] [place] Iron, TIBC, % sat. (without ferritin) (12/16/2017 6:50 PM [employer]) Iron 24 (L) 40 - 160 ug/dL [facility] TIBC 309 250 - 450 ug/dL [facility] Iron % Saturation 8 (L) 20 - 55 % [facility] Specimen Blood Performing Organization Address [facility] Phone Number [address] [address] [place] Vitamin D, 25-Hydroxy (12/16/2017 6:50 PM [employer]) Vitamin D 25-Hydroxy 8.2 6.6 - 49.9 ng/mL [facility] Specimen Blood Narrative Performed At [facility] Effective 09/05/2017: Reference Range Change New: 6.6-49.9 ng/mL Previous: 13.0-47.8 ng/mL Recommended Vitamin D Target Range: 30.0-40.0 ng/mL Performing Organization Address [facility] Phone Number [address] [address] [place] Blood culture (12/16/2017 6:50 PM [employer]) Result No growth in 5 days [facility] Specimen Blood - Arm, Right Performing Organization Address [facility] Phone Number [address] [address] [place] Urinalysis w/ Microscopic (12/16/2017 6:50 PM [employer]) Color, UA Yellow [facility] Clarity, UA Clear [facility] Specific [place], UA 1.017 1.001 - 1.035 [facility] pH, UA 5.5 5.0 - 8.0 [facility] Protein, UA 50 mg/dL (A) Negative [facility] Glucose, UA Negative Negative [facility] Ketones, UA 40 mg/dL (A) Negative [facility] Bilirubin, UA Negative Negative [facility] Blood, UA Negative Negative [facility] Nitrite, UA Negative Negative [facility] Leukocytes, UA Moderate (A) Negative [facility] Urobilinogen, UA 0.2 0.2 - 1.0 mg/dL [facility] RBC, UA 1 /HPF [facility] WBC, UA 55 /HPF [facility] Bacteria, UA Occasional [facility] Mucus Many [facility] Hyaline Casts, UA 10 /LPF [facility] Specimen Source Urine, Catalan [facility] Specimen Urine - Urine, [place] Performing Organization Address City/[facility]/Zipcode Phone Number [facility] [address] [place] [address] [place] Ferritin (12/16/2017 6:50 PM [employer]) Ferritin 36 5 - 275 ng/mL [facility] Specimen Blood Performing Organization Address City/[facility]/Zipcode Phone Number [facility] [address] [place] [address] CENTER after 09/30/2017 Insurance Payer Benefit Plan / Group Subscriber ID Type Phone Address MEDICARE MEDICARE A B xxxxxxxxxx Medicare AETNA - MGD CARE AETNA INDEMNITY NON CONTR xxxxxxxxx Comm Advance Directives For more information, please contact:[address] [phone] Code Status Date Activated Date Inactivated Comments Full Code 12/16/2017 5:47 PM 12/16/2017 8:51 PM This code status was determined by: Patient
[2018-10-01] MEDS ORDERED: cloNIDine HCl 0.1 MG TAB ONE (20:19)
[2018-10-01] MEDS ORDERED: ONDANSETRON 4 MG (ODT) TAB ONE ×2 (20:19→20:21)
--- NOTE | 2018-10-01 20:35 | RAD REPORT ---
EXAM DESCRIPTION: CT - Head Brain Wo Cont - 10/01/2018 8:27 pm CLINICAL HISTORY: HEADACHE COMPARISON: Head Brain Wo Cont dated 05/31/2018; Head Brain Wo Cont dated 12/16/2017 TECHNIQUE: All CT scans are performed using dose optimization technique as appropriate and may inclu de automated exposure control or mA/KV adjustment according to patient size. FINDINGS: No intracranial hemorrhage, hydrocephalus or extra-axial fluid collection.Mild generalized brain atrophy is present with moderate periventricular and deep white matter chronic microvascular i schemic changes.No areas of brain edema or evidence of midline shift. The paranasal sinuses and mastoids are clear. The calvarium is intact. IMPRESSION: No acute intracranial abnormality.
--- NOTE | 2018-10-01 21:18 | ER ---
Nurse's Notes [facility] Name: Gloria Armenta Age: 83 yrs Sex: Female : 1935 Arrival Date: 10/01/2018 Time: 19:41 Bed 20 Private MD: Diagnosis: Headache;Essential (primary) hypertension Presentation: 10/01 19:50 Presenting complaint: Patient states: Headache to frontal area that began at 1800, with lp1 nausea; States hx of migraines. Transition of care: patient was not received from another setting of care. Onset of symptoms was October 01, 2018 at 18:00. Risk Assessment: Do you want to hurt yourself or someone else? Patient reports no desire to harm self or others. Initial Sepsis Screen: Does the patient meet any 2 criteria? No. Patient's initial sepsis screen is negative. Does the patient have a suspected source of infection? No. Patient's initial sepsis screen is negative. Care prior to arrival: None. 19:50 Method Of Arrival: Wheelchair lp1 19:50 Acuity: AURELIO 3 lp1 Triage Assessment: 20:00 Headache History: The patient has had previous headaches and this one is similar to jb4 previous episodes. General: Appears in no apparent distress. uncomfortable, Behavior is calm, cooperative, appropriate for age. Pain: Pain began 1 day ago. Also complains of nausea. Pain: Complains of pain in headache. Pain does not radiate. Pain currently is 8 out of 10 on a pain scale. Historical: - Allergies: 19:54 Aspirin; lp1 19:54 Cefaclor; lp1 19:54 Celecoxib; lp1 19:54 Cephalexin; lp1 19:54 CEPHALOSPORINS; lp1 19:54 Chlorpromazine; lp1 19:54 chlorpromazine HCl; lp1 19:54 esomeprazole mag; lp1 19:54 Ketorolac; lp1 19:54 ketorolac tromethamine; lp1 19:54 Morphine; lp1 19:54 prochlorperazine Edisylate; lp1 19:54 Prochlorperazine Maleate; lp1 19:54 Rofecoxib; lp1 19:54 Sulfa (Sulfonamide Antibiotics); lp1 19:54 SUMATRIPTAN; lp1 19:54 Sumatriptan Succinate; lp1 - Home Meds: 19:54 clonidine HCl 0.1 mg Oral tab once daily [Active]; lp1 - PMHx: 19:54 Chronic headaches; Chronic pain; Hypertension; lp1 - PSHx: 19:57 Tonsillectomy; Knee surgery; Foot surgery; Rectal repair x2; Hysterectomy; Bladder lp1 suspension; Appendectomy; - Immunization history:: Adult Immunizations up to date. - Social history:: Smoking status: Patient/guardian denies using tobacco. - Ebola Screening: : No symptoms or risks identified at this time. Screenin:53 Fall Risk None identified. jb4 19:57 Abuse screen: Denies threats or abuse. Denies injuries from another. Nutritional lp1 screening: No deficits noted. Tuberculosis screening: No symptoms or risk factors identified. Assessment: 19:53 General: Appears in no apparent distress. uncomfortable, Behavior is calm, cooperative, jb4 appropriate for age. Pain: Complains of pain in forehead, right alevism and left alevism Pain does not radiate. Pain currently is 8 out of 10 on a pain scale. at worst was 10 out of 10 on a pain scale. Neuro: Level of Consciousness is awake, alert, obeys commands, Oriented to person, place, time, situation. Cardiovascular: Patient's skin is warm and dry. Rhythm is sinus rhythm. Respiratory: Airway is patent Respiratory effort is even, unlabored, Respiratory pattern is regular, symmetrical. GI: Reports nausea. : No signs and/or symptoms were reported regarding the genitourinary system. EENT: No signs and/or symptoms were reported regarding the EENT system. Derm: Skin is intact, Skin is pink, warm \T\ dry. Musculoskeletal: Circulation, motion, and sensation intact. 19:53 General: Manual b/p 256/138, provider notified, see MAR for orders.. jb4 20:40 Reassessment: Patient appears in no apparent distress at this time. Patient and/or jb4 family updated on plan of care and expected duration. Pain level reassessed. Patient is alert, oriented x 3, equal unlabored respirations, skin warm/dry/pink. 21:15 Reassessment: Patient appears in no apparent distress at this time. Patient and/or jb4 family updated on plan of care and expected duration. Pain level reassessed. Patient is alert, oriented x 3, equal unlabored respirations, skin warm/dry/pink. Vital Signs: 19:51 Pulse 96; Resp 18; Temp 98.4(O); Pulse Ox 97% on R/A; Weight 58.97 kg; Height 5 ft. 8 lp1 in. (172.72 cm); Pain 8/10; 19:55 BP 256 / 138 LA (man/); lp1 19:55 BP 243 / 126 RA; lp1 20:30 BP 247 / 109; Pulse 79; Resp 18; Pulse Ox 96% ; jb4 21:00 BP 161 / 76; Pulse 78; Resp 18; Pulse Ox 100% on R/A; jb4 19:51 Body Mass Index 19.77 (58.97 kg, 172.72 cm) lp1 Arden Coma Score: 21:18 Eye Response: spontaneous(4). Verbal Response: oriented(5). Motor Response: obeys snw commands(6). Total: 15. ED Course: 19:41 Patient arrived in ED. ds1 19:48 Michael Hoyos, RN is Primary Nurse. jb4 19:51 Triage completed. lp1 19:51 Arm band placed on right wrist. lp1 19:53 Patient has correct armband on for positive identification. Bed in low position. Call jb4 light in reach. Side rails up X 1. monitor tech on. Pulse ox on. NIBP on. 19:55 Leyla Enriquez FNP-C is [facility]. snw 19:55 Ronny Arguelles MD is Attending Physician. snw 20:[address] vm2 20:27 CT Head Brain wo Cont In Process Unspecified. EDMS 20:27 CT completed. Patient tolerated procedure well. Patient moved back from CT. nj 20:51 Inserted saline lock: 20 gauge in right antecubital area, using aseptic technique. oe 21:20 No provider procedures requiring assistance completed. IV discontinued, intact, jb4 bleeding controlled. Administered Medications: 20:14 Drug: cloNIDine 0.2 mg Route: PO; jb4 21:16 Follow up: Response: No adverse reaction; Blood pressure is lowered jb4 20:14 Drug: Zofran 4 mg Route: PO; jb4 21:16 Follow up: Response: No adverse reaction; Nausea is decreased jb4 Outcome: 21:17 Discharge ordered by . snw 21:20 Discharged to home ambulatory. jb4 21:20 Condition: stable 21:20 Discharge instructions given to patient, Instructed on discharge instructions, follow up and referral plans. medication usage, Demonstrated understanding of instructions, follow-up care, medications, Prescriptions given X 1. 21:23 Patient left the ED. cc3 Signatures: Dispatcher [employer] EDMS Leyla Enriquez, SCHOOL AIDE-C SCHOOL AIDE-Csnw Shena Bergman ds1 Ryann Cheney RN RN lp1 Michael Hoyos RN RN jb4 José Miguel Roberto Orlando oe McGuire, Victoria 2 Myriam Dempsey cc3
--- NOTE | 2018-10-01 21:18 | EDPHYS ---
Physician Documentation [facility] Name: Gloria Armenta Age: 83 yrs Sex: Female : 1935 Arrival Date: 10/01/2018 Time: 19:41 Bed 20 Private MD: ED Physician Ronny Arguelles HPI: 10/01 20:28 This 83 yrs old Female presents to ER via Wheelchair with complaints of snw Headache. 20:28 The patient complains of pain to the top of head and forehead. The patient describes snw the headache as a pressure. Onset: The symptoms/episode began/occurred today, and became persistent. Severity of symptoms: At its worst the pain was moderate. Headache History: The patient has had previous headaches and this one is similar to previous episodes. The symptoms are alleviated by nothing. the symptoms are aggravated by nothing. The patient has experienced similar episodes in the past, chronically. It is unknown whether or not the patient has recently seen a physician. pt states she has not had any change in HTN medications. Historical: - Allergies: 19:54 Aspirin; lp1 19:54 Cefaclor; lp1 19:54 Celecoxib; lp1 19:54 Cephalexin; lp1 19:54 CEPHALOSPORINS; lp1 19:54 Chlorpromazine; lp1 19:54 chlorpromazine HCl; lp1 19:54 esomeprazole mag; lp1 19:54 Ketorolac; lp1 19:54 ketorolac tromethamine; lp1 19:54 Morphine; lp1 19:54 prochlorperazine Edisylate; lp1 19:54 Prochlorperazine Maleate; lp1 19:54 Rofecoxib; lp1 19:54 Sulfa (Sulfonamide Antibiotics); lp1 19:54 SUMATRIPTAN; lp1 19:54 Sumatriptan Succinate; lp1 - Home Meds: 19:54 clonidine HCl 0.1 mg Oral tab once daily [Active]; lp1 - PMHx: 19:54 Chronic headaches; Chronic pain; Hypertension; lp1 - PSHx: 19:57 Tonsillectomy; Knee surgery; Foot surgery; Rectal repair x2; Hysterectomy; Bladder lp1 suspension; Appendectomy; - Immunization history:: Adult Immunizations up to date. - Social history:: Smoking status: Patient/guardian denies using tobacco. - Ebola Screening: : No symptoms or risks identified at this time. ROS: 20:27 Constitutional: Negative for fever, chills, and weight loss, Eyes: Negative for injury, snw pain, redness, and discharge, ENT: Negative for injury, pain, and discharge, Neck: Negative for injury, pain, and swelling, Cardiovascular: Negative for chest pain, palpitations, and edema, Respiratory: Negative for shortness of breath, cough, wheezing, and pleuritic chest pain, Abdomen/GI: Negative for abdominal pain, nausea, vomiting, diarrhea, and constipation, Back: Negative for injury and pain, : Negative for injury, bleeding, discharge, and swelling, MS/Extremity: Negative for injury and deformity, Skin: Negative for injury, rash, and discoloration, Psych: Negative for depression, anxiety, suicide ideation, homicidal ideation, and hallucinations. 20:27 Neuro: Positive for headache. Exam: 20:27 Constitutional: This is a well developed, well nourished patient who is awake, alert, snw and in no acute distress. Head/Face: Normocephalic, atraumatic. Eyes: Pupils equal round and reactive to light, extra-ocular motions intact. Lids and lashes normal. Conjunctiva and sclera are non-icteric and not injected. Cornea within normal limits. Periorbital areas with no swelling, redness, or edema. ENT: Nares patent. No nasal discharge, no septal abnormalities noted. Tympanic membranes are normal and external auditory canals are clear. Oropharynx with no redness, swelling, or masses, exudates, or evidence of obstruction, uvula midline. Mucous membranes moist. Neck: Trachea midline, no thyromegaly or masses palpated, and no cervical lymphadenopathy. Supple, full range of motion without nuchal rigidity, or vertebral point tenderness. No Meningismus. Chest/axilla: Normal chest wall appearance and motion. Nontender with no deformity. No lesions are appreciated. Cardiovascular: Regular rate and rhythm with a normal S1 and S2. No gallops, murmurs, or rubs. Normal PMI, no JVD. No pulse deficits. Respiratory: Lungs have equal breath sounds bilaterally, clear to auscultation and percussion. No rales, rhonchi or wheezes noted. No increased work of breathing, no retractions or nasal flaring. Abdomen/GI: Soft, non-tender, with normal bowel sounds. No distension or tympany. No guarding or rebound. No evidence of tenderness throughout. Back: No spinal tenderness. No costovertebral tenderness. Full range of motion. Skin: Warm, dry with normal turgor. Normal color with no rashes, no lesions, and no evidence of cellulitis. MS/ Extremity: Pulses equal, no cyanosis. Neurovascular intact. Full, normal range of motion. Neuro: Awake and alert, GCS 15, oriented to person, place, time, and situation. Cranial nerves II-XII grossly intact. Motor strength 5/5 in all extremities. Sensory grossly intact. Cerebellar exam normal. Normal gait. Psych: Awake, alert, with orientation to person, place and time. Behavior, mood, and affect are within normal limits. Vital Signs: 19:51 Pulse 96; Resp 18; Temp 98.4(O); Pulse Ox 97% on R/A; Weight 58.97 kg; Height 5 ft. 8 lp1 in. (172.72 cm); Pain 8/10; 19:55 BP 256 / 138 LA (man/); lp1 19:55 BP 243 / 126 RA; lp1 20:30 BP 247 / 109; Pulse 79; Resp 18; Pulse Ox 96% ; jb4 21:00 BP 161 / 76; Pulse 78; Resp 18; Pulse Ox 100% on R/A; jb4 19:51 Body Mass Index 19.77 (58.97 kg, 172.72 cm) lp1 Manning Coma Score: 21:18 Eye Response: spontaneous(4). Verbal Response: oriented(5). Motor Response: obeys snw commands(6). Total: 15. MDM: 19:56 Patient medically screened. juani 21:18 Data reviewed: vital signs, nurses notes. Data interpreted: Pulse oximetry: on room air snw is 100 %. Interpretation: normal. Counseling: I had a detailed discussion with the patient and/or guardian regarding: the historical points, exam findings, and any diagnostic results supporting the discharge/admit diagnosis, the presence of at least one elevated blood pressure reading (>120/80) during this emergency department visit, to return to the emergency department if symptoms worsen or persist or if there are any questions or concerns that arise at home. Special discussion: I have referred the patient to see his PCP for further evaluation of high blood pressure. Based on the history and exam findings, there is no indication for further emergent testing or inpatient evaluation. I discussed with the patient/guardian the need to see the primary care provider for further evaluation of the symptoms. 10/01 19:56 Order name: CT Head Brain wo Cont; Complete Time: 20:37 snw 10/01 21:13 Order name: Recheck B/P; Complete Time: 21:16 snw Administered Medications: 20:14 Drug: cloNIDine 0.2 mg Route: PO; jb4 21:16 Follow up: Response: No adverse reaction; Blood pressure is lowered jb4 20:14 Drug: Zofran 4 mg Route: PO; jb4 21:16 Follow up: Response: No adverse reaction; Nausea is decreased jb4 Disposition: 10/02 06:45 Co-signature as Attending Physician, Ronny Arguelles MD I agree with the assessment and juani plan of care. Disposition: 10/01/18 21:17 Discharged to Home. Impression: Headache, Essential (primary) hypertension. - Condition is Stable. - Discharge Instructions: General Headache Without Cause, Hypertension, Rehydration, Adult, Managing Your Hypertension. - Prescriptions for Zofran 4 mg Oral Tablet - take 1 tablet by ORAL route every 12 hours As needed; 6 tablet. - Medication Reconciliation Form, Thank You Letter, Antibiotic Education, Prescription Opioid Use form. - Follow up: Private Physician; When: 2 - 3 days; Reason: Recheck today's complaints, Continuance of care, Re-evaluation by your physician. Follow up: Emergency Department; When: As needed; Reason: Worsening of condition. Signatures: Dispatcher [employer] Ronny Petersen MD MD cha Therrien, Shelly, ICE HOUSE SUPERVISOR-C ICE HOUSE SUPERVISOR-Csnw Ryann Cheney, RN RN lp1 Michael Hoyos RN RN jb4 Myriam Dempsey cc3 Corrections: (The following items were deleted from the chart) 10/01 21:23 21:17 10/01/2018 21:17 Discharged to Home. Impression: Headache; Essential (primary) cc3 hypertension. Condition is Stable. Forms are Medication Reconciliation Form, Thank You Letter, Antibiotic Education, Prescription Opioid Use. Follow up: Private Physician; When: 2 - 3 days; Reason: Recheck today's complaints, Continuance of care, Re-evaluation by your physician. Follow up: Emergency Department; When: As needed; Reason: Worsening of condition. snw
[2018-10-01 21:42] VITALS: TEMP 98.4
[2018-10-01 21:44] VITALS: BP 161/76; O2SAT 100
== END 2018-10-01 21:23 | disposition home or self-care (01) ==
LOC: ER 19:39
DX: I10 Essential (primary) hypertension (principal); Z88.6 Allergy status to analgesic agent; Z88.2 Allergy status to sulfonamides; Z88.8 Allergy status to other drugs, medicaments and biological substances
CPT/HCPCS: 70450; 99285

== ENCOUNTER 2018-10-01 22:25 | Emergency (ER) | payer OTHER ==
--- OUTSIDE RECORDS SUMMARY | 2018-10-01 22:27 | XMS REPORT ---
:1935 [facility] Address [address] [place] [address] [address] [place] [address] Care Team Providers Name Role Phone NICHOLE PEREZ Unavailable Unavailable Problems This patient has no known problems. Allergies, Adverse Reactions, Alerts This patient has no known allergies or adverse reactions. Medications This patient has no known medications. Results Test Description Test Time Test Comments Text Results Atomic Results Result Comments BLOOD CULTURE 2017-12-22 05:01:00 Test Item Value Reference Range Comments CULTURE (BEAKER) (test ccpw=8746) No growth in 5 days [id number] 11:31:00 Test Item Value Reference Range Comments MAGNESIUM (BEAKER) (test 2.2 mg/dL 1.6-2.6 Specimen slightly hemolyzed usdu=698) BASIC METABOLIC [id number] 11:31:00 Test Item Value Reference Range Comments SODIUM (BEAKER) (test 139 meq/L 136-145 szpm=374) POTASSIUM (BEAKER) (test 4.0 meq/L 3.5-5.1 Specimen slightly cbgr=991) hemolyzed CHLORIDE (BEAKER) (test 104 meq/L 98-107 cquv=006) CO2 (BEAKER) (test 27 meq/L 22-29 fjso=798) BLOOD UREA NITROGEN 7 mg/dL 7-21 (BEAKER) (test woew=424) CREATININE (BEAKER) (test 0.60 mg/dL 0.57-1.25 Specimen slightly zwby=417) hemolyzed GLUCOSE RANDOM (BEAKER) 113 mg/dL 70-105 (test srbu=176) CALCIUM (BEAKER) (test 8.3 mg/dL 8.4-10.2 klcy=154) EGFR (BEAKER) (test 95 mL/min/1.73 sq m ESTIMATED GFR IS NOT yuma=1357) ACCURATE CREATININE CLEARANCE IN PREDICTING GLOMERULAR FILTRATION RATE. ESTIMATED GFR IS NOT APPLICABLE FOR DIALYSIS PATIENTS. URINE [id number] 09:10:00 Test Item Value Reference Range Comments CULTURE (BEAKER) (test nmnh=9551) Amikacin (test code=1) Aztreonam (test code=32) Cefepime (test code=51) Cefoxitin (test code=68) Ceftazidime (test code=27) Ceftriaxone (test code=52) Ertapenem (test code=38) Gentamicin (test code=18) Levofloxacin (test code=22) Meropenem (test code=34) Nitrofurantoin (test code=23) Piperacillin + Tazobactam (test code=29) Tetracycline (test code=2) Tobramycin (test code=25) Trimethoprim + Sulfamethoxazole (test code=47) CULTURE (BEAKER) (test zqjg=6957) >100,000 col/mL Citrobacter braakii CBC W/PLT COUNT & AUTO [id number] 07:05:00 Test Item Value Reference Range Comments WHITE BLOOD CELL COUNT (BEAKER) (test eeyu=899) 7.5 K/ L 3.5-10.5 RED BLOOD CELL COUNT (BEAKER) (test tjvn=238) 4.30 M/ L 3.93-5.22 HEMOGLOBIN (BEAKER) (test itwj=888) 10.1 GM/DL 11.2-15.7 HEMATOCRIT (BEAKER) (test rlhe=244) 32.6 % 34.1-44.9 MEAN CORPUSCULAR VOLUME (BEAKER) (test dxnt=622) 75.8 fL 79.4-94.8 MEAN CORPUSCULAR HEMOGLOBIN (BEAKER) (test 23.5 pg 25.6-32.2 oear=657) MEAN CORPUSCULAR HEMOGLOBIN CONC (BEAKER) (test 31.0 GM/DL 32.2-35.5 lndw=906) RED CELL DISTRIBUTION WIDTH (BEAKER) (test 14.1 % 11.7-14.4 tqrg=122) PLATELET COUNT (BEAKER) (test tjdv=439) 289 K/CU MM 150-450 MEAN PLATELET VOLUME (BEAKER) (test agwy=213) 9.1 fL 9.4-12.3 NUCLEATED RED BLOOD CELLS (BEAKER) (test 0 /100 WBC 0-0 dmmo=406) NEUTROPHILS RELATIVE PERCENT (BEAKER) (test 73 % kdjm=676) LYMPHOCYTES RELATIVE PERCENT (BEAKER) (test 15 % ykoc=288) MONOCYTES RELATIVE PERCENT (BEAKER) (test 9 % ytit=812) EOSINOPHILS RELATIVE PERCENT (BEAKER) (test 2 % ngjt=374) BASOPHILS RELATIVE PERCENT (BEAKER) (test 0 % tdwe=612) NEUTROPHILS ABSOLUTE COUNT (BEAKER) (test 5.50 K/ L 1.56-6.13 ogqk=671) LYMPHOCYTES ABSOLUTE COUNT (BEAKER) (test 1.12 K/ L 1.18-3.74 caar=191) MONOCYTES ABSOLUTE COUNT (BEAKER) (test 0.67 K/ L 0.24-0.36 guoe=812) EOSINOPHILS ABSOLUTE COUNT (BEAKER) (test 0.16 K/ L 0.04-0.36 otpa=079) BASOPHILS ABSOLUTE COUNT (BEAKER) (test 0.03 K/ L 0.01-0.08 dspu=791) IMMATURE GRANULOCYTES-RELATIVE PERCENT (BEAKER) 0 % 0-1 (test atzg=4552) [id number] 08:15:00 Test Item Value Reference Range Comments MAGNESIUM (BEAKER) (test xtwn=897) 1.7 mg/dL 1.6-2.6 CBC W/PLT COUNT & AUTO [id number] 04:24:00 Test Item Value Reference Range Comments WHITE BLOOD CELL COUNT (BEAKER) (test qigt=910) 6.7 K/ L 3.5-10.5 RED BLOOD CELL COUNT (BEAKER) (test bssu=433) 3.69 M/ L 3.93-5.22 HEMOGLOBIN (BEAKER) (test qpxx=941) 8.6 GM/DL 11.2-15.7 HEMATOCRIT (BEAKER) (test ocrs=495) 28.5 % 34.1-44.9 MEAN CORPUSCULAR VOLUME (BEAKER) (test mtod=023) 77.2 fL 79.4-94.8 MEAN CORPUSCULAR HEMOGLOBIN (BEAKER) (test 23.3 pg 25.6-32.2 uljo=847) MEAN CORPUSCULAR HEMOGLOBIN CONC (BEAKER) (test 30.2 GM/DL 32.2-35.5 pdwh=630) RED CELL DISTRIBUTION WIDTH (BEAKER) (test 13.7 % 11.7-14.4 yixr=101) PLATELET COUNT (BEAKER) (test afjg=955) 249 K/CU MM 150-450 MEAN PLATELET VOLUME (BEAKER) (test fsca=036) 8.8 fL 9.4-12.3 NUCLEATED RED BLOOD CELLS (BEAKER) (test 0 /100 WBC 0-0 ycew=040) NEUTROPHILS RELATIVE PERCENT (BEAKER) (test 64 % ggoz=645) LYMPHOCYTES RELATIVE PERCENT (BEAKER) (test 21 % dmaj=863) MONOCYTES RELATIVE PERCENT (BEAKER) (test 12 % ddig=790) EOSINOPHILS RELATIVE PERCENT (BEAKER) (test 3 % dzja=143) BASOPHILS RELATIVE PERCENT (BEAKER) (test 0 % reoh=552) NEUTROPHILS ABSOLUTE COUNT (BEAKER) (test 4.23 K/ L 1.56-6.13 siwi=311) LYMPHOCYTES ABSOLUTE COUNT (BEAKER) (test 1.39 K/ L 1.18-3.74 vscs=645) MONOCYTES ABSOLUTE COUNT (BEAKER) (test 0.80 K/ L 0.24-0.36 fnzk=947) EOSINOPHILS ABSOLUTE COUNT (BEAKER) (test 0.20 K/ L 0.04-0.36 apzx=716) BASOPHILS ABSOLUTE COUNT (BEAKER) (test 0.02 K/ L 0.01-0.08 eras=766) IMMATURE GRANULOCYTES-RELATIVE PERCENT (BEAKER) 0 % 0-1 (test jmps=1820) BASIC METABOLIC [id number] 04:19:00 Test Item Value Reference Range Comments SODIUM (BEAKER) (test 139 meq/L 136-145 nmxn=153) POTASSIUM (BEAKER) (test 3.1 meq/L 3.5-5.1 gcay=463) CHLORIDE (BEAKER) (test 103 meq/L 98-107 ziax=803) CO2 (BEAKER) (test 29 meq/L 22-29 jvpp=711) BLOOD UREA NITROGEN 12 mg/dL 7-21 (BEAKER) (test lwqd=066) CREATININE (BEAKER) (test 0.65 mg/dL 0.57-1.25 iooq=597) GLUCOSE RANDOM (BEAKER) 91 mg/dL 70-105 (test sajg=266) CALCIUM (BEAKER) (test 8.1 mg/dL 8.4-10.2 yrpg=520) EGFR (BEAKER) (test 87 mL/min/1.73 sq m ESTIMATED GFR IS NOT lgvw=2460) ACCURATE CREATININE CLEARANCE IN PREDICTING GLOMERULAR FILTRATION RATE. ESTIMATED GFR IS NOT APPLICABLE FOR DIALYSIS PATIENTS. EEG MONITORING WITH VIDEO RECORDING EACH 24 [id number] 16:19:00Addendum BeginsAddendum:Start time: 0645Stop time: 1613 There [...] 12/16/2017 to DATE OF REPORT 12/16/17 ACC: [id number] EE-[id number] Start time: 22: 43 Stop time: 06:45 ICD-10: G93.40 CPT Code: 95046 HISTORY: 82 yo F with history of [...] Fellow Gely Cleary MD, MS Epilepsy/Neurophysiology Attending [facility] METABOLIC [id number] 04:38:00 Test Item Value Reference Range Comments SODIUM (BEAKER) (test 142 meq/L 136-145 rwgf=883) POTASSIUM (BEAKER) (test 3.0 meq/L 3.5-5.1 hoky=325) CHLORIDE (BEAKER) (test 104 meq/L 98-107 jccd=256) CO2 (BEAKER) (test 31 meq/L 22-29 awnj=612) BLOOD UREA NITROGEN 13 mg/dL 7-21 (BEAKER) (test ipjr=618) CREATININE (BEAKER) (test 0.64 mg/dL 0.57-1.25 pusa=221) GLUCOSE RANDOM (BEAKER) 122 mg/dL 70-105 (test peoc=558) CALCIUM (BEAKER) (test 8.1 mg/dL 8.4-10.2 zsji=990) EGFR (BEAKER) (test 89 mL/min/1.73 sq m ESTIMATED GFR IS NOT mrib=9411) ACCURATE CREATININE CLEARANCE IN PREDICTING GLOMERULAR FILTRATION RATE. ESTIMATED GFR IS NOT APPLICABLE FOR DIALYSIS PATIENTS. CBC W/PLT COUNT & AUTO [id number] 04:03:00 Test Item Value Reference Range Comments WHITE BLOOD CELL COUNT (BEAKER) (test tgfm=968) 8.6 K/ L 3.5-10.5 RED BLOOD CELL COUNT (BEAKER) (test vnxa=523) 3.94 M/ L 3.93-5.22 HEMOGLOBIN (BEAKER) (test ppkv=544) 9.1 GM/DL 11.2-15.7 HEMATOCRIT (BEAKER) (test slmb=620) 30.3 % 34.1-44.9 MEAN CORPUSCULAR VOLUME (BEAKER) (test rztb=249) 76.9 fL 79.4-94.8 MEAN CORPUSCULAR HEMOGLOBIN (BEAKER) (test 23.1 pg 25.6-32.2 inze=091) MEAN CORPUSCULAR HEMOGLOBIN CONC (BEAKER) (test 30.0 GM/DL 32.2-35.5 kxef=898) RED CELL DISTRIBUTION WIDTH (BEAKER) (test 13.4 % 11.7-14.4 rwqy=107) PLATELET COUNT (BEAKER) (test ehjl=297) 287 K/CU MM 150-450 MEAN PLATELET VOLUME (BEAKER) (test ztuj=585) 8.7 fL 9.4-12.3 NUCLEATED RED BLOOD CELLS (BEAKER) (test 0 /100 WBC 0-0 huyw=952) NEUTROPHILS RELATIVE PERCENT (BEAKER) (test 74 % sxxj=685) LYMPHOCYTES RELATIVE PERCENT (BEAKER) (test 16 % syrg=633) MONOCYTES RELATIVE PERCENT (BEAKER) (test 9 % xzxr=411) EOSINOPHILS RELATIVE PERCENT (BEAKER) (test 1 % zajg=920) BASOPHILS RELATIVE PERCENT (BEAKER) (test 0 % itok=158) NEUTROPHILS ABSOLUTE COUNT (BEAKER) (test 6.35 K/ L 1.56-6.13 udkp=234) LYMPHOCYTES ABSOLUTE COUNT (BEAKER) (test 1.35 K/ L 1.18-3.74 heop=165) MONOCYTES ABSOLUTE COUNT (BEAKER) (test 0.80 K/ L 0.24-0.36 mgna=044) EOSINOPHILS ABSOLUTE COUNT (BEAKER) (test 0.08 K/ L 0.04-0.36 wyyo=934) BASOPHILS ABSOLUTE COUNT (BEAKER) (test 0.03 K/ L 0.01-0.08 npsv=129) IMMATURE GRANULOCYTES-RELATIVE PERCENT (BEAKER) 0 % 0-1 (test axzf=6105) EEG AWAKE AND [id number] 23:06:00For STAT EEG- after 5 PM weekdays, weekends and holidays, page the on-call muck miner blasting Reason for exam:->seizure, AMSDATE OF TEST: 1/21/18DATE OF REPORT 12/16/17ACC: [id number]: 18-126Start time : 22:22Stop time: 22:43ICD-10: G93.40CPT Code: 32542 HISTORY: 82 yo F with history of [...] FACNSProfessor of NeurologyDirector, [facility] EpilepsyGuernsey Memorial HospitalerSelect [facility] Neurophysiology Lab Electronically signed by: NABILA Foreman 12/16/2017 11:06 PMRAD, CHEST, 1 VIEW, NON [id number] 21:41: 00Reason for exam:->concern for PNAShould this [...] MDReport Verified Date/Time: 12/16/2017 21:41:51 Reading Location: [address] Reading Room [id number] 19:57:00 Test Item Value Reference Range Comments FERRITIN (BEAKER) (test diep=861) 36 ng/mL 5-275 VITAMIN D, [id number] 19:57:00 Test Item Value Reference Range Comments VITAMIN D 25-OH (BEAKER) (test zjoo=0693) 8.2 ng/mL 6.6-49.9 Effective 09/05/2017: Reference Range ChangeNew: 6.6-49.9 ng/mL Previous: 13.0 -47.8 ng/mLRecommended Vitamin D Target Range: 30.0-40.0 ng/mLTSH/FREE T4 IF [id number] 19:57:00 Test Item Value Reference Range Comments THYROID STIMULATING HORMONE (BEAKER) (test 3.15 uIU/mL 0.35-4.94 ynqu=333) VITAMIN B12 AND [id number] 19:57:00 Test Item Value Reference Range Comments VITAMIN B12 (BEAKER) (test vmev=335) 376 pg/mL 213-816 FOLATE (BEAKER) (test vmih=950) 15.8 ng/mL >=7.0 URINALYSIS W/ [id number] 19:28:00 Test Item Value Reference Range Comments COLOR (BEAKER) (test lfpn=855) Yellow CLARITY (BEAKER) (test rgag=331) Clear SPECIFIC GRAVITY UA (BEAKER) (test buqm=485) 1.017 1.001-1.035 PH UA (BEAKER) (test cezu=056) 5.5 5.0-8.0 PROTEIN UA (BEAKER) (test uqmx=071) 50 mg/dL Negative GLUCOSE UA (BEAKER) (test eshu=927) Negative Negative KETONES UA (BEAKER) (test spwz=405) 40 mg/dL Negative BILIRUBIN UA (BEAKER) (test jbcq=092) Negative Negative BLOOD UA (BEAKER) (test fidn=071) Negative Negative NITRITE UA (BEAKER) (test ekis=042) Negative Negative LEUKOCYTE ESTERASE UA (BEAKER) (test itbx=795) Moderate Negative UROBILINOGEN UA (BEAKER) (test iblm=962) 0.2 mg/dL 0.2-1.0 RBC UA (BEAKER) (test hamn=646) 1 /HPF WBC UA (BEAKER) (test jess=821) 55 /HPF BACTERIA (BEAKER) (test pear=293) Occasional MUCUS (BEAKER) (test gulj=9190) Many HYALINE CASTS (BEAKER) (test cjrp=730) 10 /LPF SOURCE(BEAKER) (test hpyk=7691) Urine, [place] IRON, TIBC, % SAT. (WITHOUT FERRITIN)2017-12-16 19:21:00 Test Item Value Reference Range Comments IRON (BEAKER) (test tgfz=874) 24 ug/dL 40-160 TOTAL IRON BINDING CAPACITY (BEAKER) (test 309 ug/dL 250-450 pkyi=581) IRON % SATURATION (2) (BEAKER) (test csrj=6058) 8 % 20-55 BASIC METABOLIC [id number] 19:20:00 Test Item Value Reference Range Comments SODIUM (BEAKER) (test 141 meq/L 136-145 gkzy=263) POTASSIUM (BEAKER) (test 4.0 meq/L 3.5-5.1 Specimen moderately dixr=174) hemolyzed CHLORIDE (BEAKER) (test 102 meq/L 98-107 dhrd=718) CO2 (BEAKER) (test 30 meq/L 22-29 yyao=756) BLOOD UREA NITROGEN 12 mg/dL 7-21 (BEAKER) (test zjcg=030) CREATININE (BEAKER) (test 0.66 mg/dL 0.57-1.25 Specimen moderately vlfz=272) hemolyzed GLUCOSE RANDOM (BEAKER) 102 mg/dL 70-105 (test ostg=472) CALCIUM (BEAKER) (test 8.3 mg/dL 8.4-10.2 gbaa=670) EGFR (BEAKER) (test 86 mL/min/1.73 sq m ESTIMATED GFR IS NOT ldvp=1717) ACCURATE CREATININE CLEARANCE IN PREDICTING GLOMERULAR FILTRATION RATE. ESTIMATED GFR IS NOT APPLICABLE FOR DIALYSIS PATIENTS. CBC W/PLT COUNT & AUTO [id number] 19:06:00 Test Item Value Reference Range Comments WHITE BLOOD CELL COUNT (BEAKER) (test azif=277) 8.2 K/ L 3.5-10.5 RED BLOOD CELL COUNT (BEAKER) (test lpwe=365) 4.05 M/ L 3.93-5.22 HEMOGLOBIN (BEAKER) (test pyin=689) 9.4 GM/DL 11.2-15.7 HEMATOCRIT (BEAKER) (test dwcn=340) 30.9 % 34.1-44.9 MEAN CORPUSCULAR VOLUME (BEAKER) (test pzrk=061) 76.3 fL 79.4-94.8 MEAN CORPUSCULAR HEMOGLOBIN (BEAKER) (test 23.2 pg 25.6-32.2 rvoc=002) MEAN CORPUSCULAR HEMOGLOBIN CONC (BEAKER) (test 30.4 GM/DL 32.2-35.5 qqjs=195) RED CELL DISTRIBUTION WIDTH (BEAKER) (test 13.6 % 11.7-14.4 panh=018) PLATELET COUNT (BEAKER) (test gihh=714) 301 K/CU MM 150-450 MEAN PLATELET VOLUME (BEAKER) (test tlmn=697) 8.7 fL 9.4-12.3 NUCLEATED RED BLOOD CELLS (BEAKER) (test 0 /100 WBC 0-0 awgg=991) NEUTROPHILS RELATIVE PERCENT (BEAKER) (test 78 % kazr=732) LYMPHOCYTES RELATIVE PERCENT (BEAKER) (test 13 % wuna=118) MONOCYTES RELATIVE PERCENT (BEAKER) (test 9 % nhhb=044) EOSINOPHILS RELATIVE PERCENT (BEAKER) (test 1 % nqju=462) BASOPHILS RELATIVE PERCENT (BEAKER) (test 0 % wupw=634) NEUTROPHILS ABSOLUTE COUNT (BEAKER) (test 6.35 K/ L 1.56-6.13 ouhh=533) LYMPHOCYTES ABSOLUTE COUNT (BEAKER) (test 1.06 K/ L 1.18-3.74 tbve=212) MONOCYTES ABSOLUTE COUNT (BEAKER) (test 0.70 K/ L 0.24-0.36 kcdt=473) EOSINOPHILS ABSOLUTE COUNT (BEAKER) (test 0.04 K/ L 0.04-0.36 izyg=773) BASOPHILS ABSOLUTE COUNT (BEAKER) (test 0.03 K/ L 0.01-0.08 dayp=473) IMMATURE GRANULOCYTES-RELATIVE PERCENT (BEAKER) 0 % 0-1 (test tggn=7389)
--- OUTSIDE RECORDS SUMMARY | 2018-10-01 22:27 | XMS REPORT | Clinical Summary ---
:1935 Author Organization [facility] Address [address] [place] [address] Care Team Providers Name Role Phone Thang [...] Taken Blood Pressure 157/77 12/20/2017 11:34 AM COUGAR HUNTER Pulse 76 12/20/2017 11:34 AM COUGAR HUNTER Temperature 36.5 C (97.7 F) 12/20/2017 11:34 AM COUGAR HUNTER Respiratory Rate 18 12/20/2017 11:34 AM COUGAR HUNTER Oxygen Saturation 98% 12/20/2017 11:34 AM COUGAR HUNTER Inhaled Oxygen Concentration - - Weight 54 kg (119 lb) 12/20/2017 5:00 AM COUGAR HUNTER Height 157.5 cm (5' 2") 12/16/2017 5:25 PM COUGAR HUNTER Body Mass Index 21.77 12/20/2017 5:00 AM COUGAR HUNTER Plan of Treatment Not on file Procedures Procedure Name Priority Date/Time Associated Comments Diagnosis RHYTHM STRIP - SCAN 12/21/2017 2:41 PM COUGAR HUNTER MAGNESIUM Routine 12/19/2017 7:31 Results for this AM COUGAR HUNTER procedure are in the results section. BASIC METABOLIC PANEL STAT 12/19/2017 7:31 Results for this (7) AM COUGAR HUNTER procedure are in the results section. CBC W/PLT COUNT & STAT 12/19/2017 6:58 Results for this AUTO DIFFERENTIAL AM COUGAR HUNTER procedure are in the results section. CBC W/PLT COUNT & STAT 12/19/2017 6:58 Results for this AUTO DIFFERENTIAL AM [facility]GAR HUNTER procedure are in the results section. CBC W/PLT COUNT & Routine 12/18/2017 3:39 Results for this AUTO DIFFERENTIAL AM COUGAR HUNTER procedure are in the results section. MAGNESIUM STAT 12/18/2017 3:39 Results for this AM COUGAR HUNTER procedure are in the results section. CBC W/PLT COUNT & Routine 12/18/2017 3:39 Results for this AUTO DIFFERENTIAL AM COUGAR HUNTER procedure are in the results section. BASIC METABOLIC PANEL Routine 12/18/2017 3:39 Results for this (7) AM COUGAR HUNTER procedure are in the results section. EEG MONITORING WITH Routine 12/17/2017 7:00 Results for this VIDEO RECORDING EACH AM COUGAR HUNTER procedure are in 24 HOURS the results section. CBC W/PLT COUNT & Routine 12/17/2017 3:34 Results for this AUTO DIFFERENTIAL AM COUGAR HUNTER procedure are in the results section. CBC W/PLT COUNT & Routine 12/17/2017 3:34 Results for this AUTO DIFFERENTIAL AM COUGAR HUNTER procedure are in the results section. BASIC METABOLIC PANEL Routine 12/17/2017 3:34 Results for this (7) AM COUGAR [facility]UNTER procedure are in the results section. EEG AWAKE AND DROWSY STAT 12/16/2017 10:33 Results for this PM COUGAR HUNTER procedure are in the results section. XR CHEST 1 VIEW Routine 12/16/2017 9:15 Results for this PORTABLE/BEDSIDE PM COUGAR HUNTER procedure are in the results section. URINE CULTURE Routine 12/16/2017 8:45 Results for this PM [facility]TER procedure are in the results section. CBC W/PLT COUNT & Routine 12/16/2017 6:50 Results for this AUTO DIFFERENTIAL PM [facility]GAR HUNTER procedure are in the results section. CBC W/PLT COUNT & Routine 12/16/2017 6:50 Results for this AUTO DIFFERENTIAL PM [facility]GAR HUNTER procedure are in the results section. VITAMIN D, 25-HYDROXY Routine 12/16/2017 6:50 Results for this PM [facility]AR [facility]UNTER procedure are in the results section. VITAMIN B12 AND Routine 12/16/2017 6:50 Results for this FOLATE PM [facility]AR HUNTER procedure are in the results section. FERRITIN Routine 12/16/2017 6:50 Results for this PM [facility]TER procedure are in the results section. IRON, TIBC, % SAT. Routine 12/16/2017 6:50 Results for this (WITHOUT FERRITIN) PM [facility]TER procedure are in the results section. TSH/FREE T4 IF Routine 12/16/2017 6:50 Results for this INDICATED PM [facility]TER procedure are in the results section. BASIC METABOLIC PANEL Routine 12/16/2017 6:50 Results for this (7) PM [facility]TER procedure are in the results section. URINALYSIS W/ Routine 12/16/2017 6:50 Results for this MICROSCOPIC PM [facility]TER procedure are in the results section. BLOOD CULTURE Routine 12/16/2017 6:50 Results for this PM [facility]TER procedure are in the results section. after 09/30/2017 Results RHYTHM STRIP - SCAN (12/21/2017 2:41 PM COUGAR HUNTER) Narrative Performed At Magnesium (12/19/2017 7:31 AM COUGAR HUNTER)Only the most recent of2 resultswithin the time period is included. Magnesium 2.2Comment: Specimen slightly 1.6 - 2.6 mg/dL [facility] Specimen Blood - Line, Venous Performing Organization Address City/[facility] Phone Number [address] [address] [phone] CENTER Basic Metabolic Panel (12/19/2017 7:31 AM COUGAR HUNTER)Only the most recent of4 resultswithin the time period is included. Sodium 139 136 - 145 meq/L [facility] Potassium 4.0Comment: Specimen slightly 3.5 - 5.1 meq/L [facility] Chloride 104 98 - 107 meq/L [facility] CO2 27 22 - 29 meq/L [facility] BUN 7 7 - 21 mg/dL [facility] Creatinine 0.60Comment: Specimen 0.57 - 1.25 mg/dL [facility] Glucose 113 (H) 70 - 105 mg/dL [facility] Calcium 8.3 (L) 8.4 - 10.2 mg/dL [facility] EGFR 95Comment: ESTIMATED GFR IS mL/min/1.73 sq m [facility] NOT ACCURATE CREATININE [facility] CENTER CLEARANCE IN PREDICTING GLOMERULAR FILTRATION RATE. ESTIMATED GFR IS NOT APPLICABLE FOR DIALYSIS PATIENTS. Specimen Blood - Line, Venous Performing Organization Address City/[facility] Phone Number [address] [address] [place] CBC with platelet count + automated diff (12/19/2017 6:58 AM COUGAR HUNTER)Only the most recent of4 resultswithin the time period is included. WBC 7.5 3.5 - 10.5 K/L [facility] RBC 4.30 3.93 - 5.22 M/L [facility] Hemoglobin 10.1 (L) 11.2 - 15.7 GM/DL [facility] Hematocrit 32.6 (L) 34.1 - 44.9 % [facility] MCV 75.8 (L) 79.4 - 94.8 fL [facility] MCH 23.5 (L) 25.6 - 32.2 pg [facility] MCHC 31.0 (L) 32.2 - 35.5 GM/DL [facility] RDW 14.1 11.7 - 14.4 % [facility] Platelets 289 150 - 450 K/CU MM [facility] MPV 9.1 (L) 9.4 - 12.3 fL [facility] nRBC 0 0 - 0 /100 WBC [facility] % Neutros 73 % [facility] % Lymphs 15 % [facility] % Monos 9 % [facility] % Eos 2 % [facility] % Baso 0 % [facility] # Neutros 5.50 1.56 - 6.13 K/L [facility] # Lymphs 1.12 (L) 1.18 - 3.74 K/L [facility] # Monos 0.67 (H) 0.24 - 0.36 K/L [facility] # Eos 0.16 0.04 - 0.36 K/L [facility] # Baso 0.03 0.01 - 0.08 K/L [facility] Immature Granulocytes-Relative 0 0 - 1 % [facility] Specimen Blood - Line, Venous Performing Organization Address City/State/Zipcode Phone Number [facility] [address] [place] [address] CENTER EEG monitoring with video recording each 24 hours (12/17/2017 7:00 AM COUGAR HUNTER) Narrative Performed At Addendum Begins GE RIS [...] to 12/17/2017 DATE OF REPORT 12/16/17 ACC: [id number] Start time: 22:43 Stop time: 06:45 ICD-10: G93.40 CPT Code: 88097 HISTORY: 82 yo F with history of chronic pain, chronic Lozano, osteoporosis, HTN, who was transferred from [facility] for AMS and seizures. UDS + (patient [...] External Ris In - 12/17/2017 4:19 PM COUGAR HUNTER Addendum Begins Addendum: Start time: 0645 Stop [...] to 12/17/2017 DATE OF REPORT 12/16/17 ACC: [id number] Start time: 22:43 Stop time: 06:45 ICD-10: G93.40 CPT Code: 90591 HISTORY: 82 yo F with history of [...] Fellow Gely Cleary MD, MS Epilepsy/Neurophysiology Attending Performing Organization Address City/State/Zipcode Phone Number [employer] EEG AWAKE AND DROWSY (12/16/2017 10:33 PM COUGAR HUNTER) Narrative Performed At DATE OF TEST: 12/16/17 [employer] DATE OF REPORT 12/16/17 ACC: [id number] Start time: 22:22 Stop time: 22:43 ICD-10: G93.40 CPT Code: 30683 HISTORY: 82 yo F with history of [...] MD Epilepsy Fellow Nabila Sanchez M.D., [facility] Professor of Neurology Director, [facility] Epilepsy Center Head, [facility] Neurophysiology Lab Procedure Note Interface, External Ris In - 12/16/2017 11:06 PM COUGAR HUNTER DATE OF TEST: 12/16/17 DATE OF REPORT 12/16/17 ACC: [id number] Start time: 22:22 Stop time: 22:43 ICD-10: G93.40 CPT Code: 96315 HISTORY: 82 yo F with history of chronic pain, chronic Lozano, osteoporosis, HTN, who was transferred from [facility] for AMS and seizures. UDS + (patient [...] MD Epilepsy Fellow Nabila Sanchez M.D., [facility] Professor of Neurology Director, [facility] Epilepsy [place] Head, [facility] Neurophysiology Lab Performing Organization Address City/State/Zipcode Phone Number [employer] XR chest 1 view portable / bedside (12/16/2017 9:15 PM COUGAR HUNTER) Narrative Performed At FINAL REPORT [employer] INDICATION: concern for PNA COMPARISON: None TECHNIQUE: Single frontal view of the chest. FINDINGS: Limited by severe scoliosis and contractures. Lungs and pleura: Clear lungs. No effusion. Heart and mediastinum: Normal heart size. Unremarkable mediastinal contours. Osseous structures: No acute abnormality. Other: None. IMPRESSION: No acute intrathoracic abnormality. Signed: JR Lamb Robert MD Report Verified Date/Time:12/16/2017 21:41:51 Reading Location: [address] Reading Room Procedure Note Interface, External Ris In - 12/16/2017 9:44 PM COUGAR HUNTER FINAL REPORT INDICATION: concern for PNA COMPARISON: None TECHNIQUE: Single frontal view of the chest. FINDINGS: Limited by severe scoliosis and contractures. Lungs and pleura: Clear lungs. No effusion. Heart and mediastinum: Normal heart size. Unremarkable mediastinal contours. Osseous structures: No acute abnormality. Other: None. IMPRESSION: No acute intrathoracic abnormality. Signed: JR Lamb Robert MD Report Verified Date/Time: 12/16/2017 21:41:51 Reading Location: [address] Reading Room Performing Organization Address City/State/Zipcode Phone Number GE RIS Urine culture (12/16/2017 8:45 PM COUGAR HUNTER) Result [facility] Result (A) [facility] Specimen Urine - Urine, Catalan Organism Antibiotic [...] + Sulfamethoxazole >=320: Resistant Performing Organization Address [facility] Phone Number [address] [address] CENTER Vitamin B12 and Folate (12/16/2017 6:50 PM COUGAR HUNTER) Vitamin B12 376 213 - 816 pg/mL [facility] Folate 15.8 >=7.0 ng/mL [facility] Specimen Blood Performing Organization Address [facility] Phone Number [address] [address] CENTER TSH/Free T4 If Indicated (12/16/2017 6:50 PM COUGAR HUNTER) TSH 3.15 0.35 - 4.94 uIU/mL [facility] Specimen Blood Performing Organization Address [facility]/Zipcode Phone Number [address] [address] [phone] [place] Iron, TIBC, % sat. (without ferritin) (12/16/2017 6:50 PM COUGAR HUNTER) Iron 24 (L) 40 - 160 ug/dL [facility] TIBC 309 250 - 450 ug/dL [facility] Iron % Saturation 8 (L) 20 - 55 % [facility] Specimen Blood Performing Organization Address [facility] Phone Number [address] [address] [place] Vitamin D, 25-Hydroxy (12/16/2017 6:50 PM COUGAR HUNTER) Vitamin D 25-Hydroxy 8.2 6.6 - 49.9 ng/mL [facility] Specimen Blood Narrative Performed At [facility] Effective 09/05/2017: Reference Range Change New: 6.6-49.9 ng/mL Previous: 13.0-47.8 ng/mL Recommended Vitamin D Target Range: 30.0-40.0 ng/mL Performing Organization Address [facility] Phone Number [address] [address] [place] Blood culture (12/16/2017 6:50 PM COUGAR HUNTER) Result No growth in 5 days [facility] Specimen Blood - Arm, Right Performing Organization Address [facility] Phone Number [address] [address] [place] Urinalysis w/ Microscopic (12/16/2017 6:50 PM COUGAR HUNTER) Color, UA Yellow [facility] Clarity, UA Clear [facility] Specific Tina, UA 1.017 1.001 - 1.035 [facility] pH, UA 5.5 5.0 - 8.0 [facility] Protein, UA 50 mg/dL (A) Negative [facility] Glucose, UA Negative Negative [facility] Ketones, UA 40 mg/dL (A) Negative [facility] Bilirubin, UA Negative Negative [facility] Blood, UA Negative Negative [facility] Nitrite, UA Negative Negative [facility] Leukocytes, UA Moderate (A) Negative [facility] Urobilinogen, UA 0.2 0.2 - 1.0 mg/dL [facility] RBC, UA 1 /HPF [facility] WBC, UA 55 /HPF [facility] Bacteria, UA Occasional [facility] Mucus Many [facility] Hyaline Casts, UA 10 /LPF [facility] Specimen Source Urine, Catalan [facility] Specimen Urine - Urine, Catalan Performing Organization Address City/[facility]/Zipcode Phone Number [facility] [address] [place] [address] [phone] [place] Ferritin (12/16/2017 6:50 PM COUGAR HUNTER) Ferritin 36 5 - 275 ng/mL [facility] Specimen Blood Performing Organization Address City/[facility]/Zipcode Phone Number [facility] [address] [place] [address] [phone] CENTER after 09/30/2017 Insurance Payer Benefit Plan / Group Subscriber ID Type Phone Address MEDICARE MEDICARE A B xxxxxxxxxx Medicare AETNA - MGD CARE AETNA INDEMNITY NON CONTR xxxxxxxxx Comm Advance Directives For more information, please contact:[address] [phone] Code Status Date Activated Date Inactivated Comments Full Code 12/16/2017 5:47 PM 12/16/2017 8:51 PM This code status was determined by: Patient
--- NOTE | 2018-10-02 00:41 | EDPHYS ---
Physician Documentation [facility] Name: Gloria Armenta Age: 83 yrs Sex: Female : 1935 Arrival Date: 10/01/2018 Time: 22:26 Bed 5 Private MD: ED Ronny Ríos HPI: 10/02 00:37 This 83 yrs old Female presents to ER via Ambulatory with complaints of juani Headache. 00:37 The patient complains of pain to the top of head, forehead, left frontal area and right juani frontal area. The patient describes the headache as constant. Onset: The symptoms/episode began/occurred 2 day(s) ago. Associated signs and symptoms: The patient has no apparent associated signs or symptoms. Severity of symptoms: At its worst the pain was moderate, in the emergency department the pain is unchanged. Headache History: The patient has had previous headaches and this one is similar to previous episodes. The patient has experienced similar episodes in the past, multiple times. Historical: - Allergies: 10/01 23:03 Aspirin; lp1 23:03 Cefaclor; lp1 23:03 Celecoxib; lp1 23:03 Cephalexin; lp1 23:03 CEPHALOSPORINS; lp1 23:03 Chlorpromazine; lp1 23:03 chlorpromazine HCl; lp1 23:03 esomeprazole mag; lp1 23:03 Ketorolac; lp1 23:03 ketorolac tromethamine; lp1 23:03 Morphine; lp1 23:03 prochlorperazine Edisylate; lp1 23:03 Prochlorperazine Maleate; lp1 23:03 Rofecoxib; lp1 23:03 Sulfa (Sulfonamide Antibiotics); lp1 23:03 SUMATRIPTAN; lp1 23:03 Sumatriptan Succinate; lp1 - Home Meds: 23:03 clonidine HCl 0.1 mg Oral tab once daily [Active]; lp1 - PMHx: 23:03 Chronic headaches; Chronic pain; Hypertension; lp1 - PSHx: 23:03 Tonsillectomy; Knee surgery; Foot surgery; rectal repair x 2; Hysterectomy; Bladder lp1 suspension; Appendectomy; - Immunization history:: Adult Immunizations up to date. - Social history:: Smoking status: Patient/guardian denies using tobacco. - Ebola Screening: : No symptoms or risks identified at this time. - Family history:: not pertinent. ROS: 10/02 00:37 Constitutional: Negative for fever, chills, and weight loss, Eyes: Negative for injury, juani pain, redness, and discharge, ENT: Negative for injury, pain, and discharge, Neck: Negative for injury, pain, and swelling, Cardiovascular: Negative for chest pain, palpitations, and edema, Respiratory: Negative for shortness of breath, cough, wheezing, and pleuritic chest pain, Abdomen/GI: Negative for abdominal pain, nausea, vomiting, diarrhea, and constipation, Back: Negative for injury and pain, : Negative for injury, bleeding, discharge, and swelling, MS/Extremity: Negative for injury and deformity, Skin: Negative for injury, rash, and discoloration, Psych: Negative for depression, anxiety, suicide ideation, homicidal ideation, and hallucinations, Allergy/Immunology: Negative for hives, rash, and allergies, Endocrine: Negative for neck swelling, polydipsia, polyuria, polyphagia, and marked weight changes, Hematologic/Lymphatic: Negative for swollen nodes, abnormal bleeding, and unusual bruising. Neuro: Positive for headache. Exam: 00:37 Constitutional: This is a well developed, well nourished patient who is awake, alert, juani and in no acute distress. Head/Face: Normocephalic, atraumatic. Eyes: Pupils equal round and reactive to light, extra-ocular motions intact. Lids and lashes normal. Conjunctiva and sclera are non-icteric and not injected. Cornea within normal limits. Periorbital areas with no swelling, redness, or edema. ENT: Nares patent. No nasal discharge, no septal abnormalities noted. Tympanic membranes are normal and external auditory canals are clear. Oropharynx with no redness, swelling, or masses, exudates, or evidence of obstruction, uvula midline. Mucous membranes moist. Neck: Trachea midline, no thyromegaly or masses palpated, and no cervical lymphadenopathy. Supple, full range of motion without nuchal rigidity, or vertebral point tenderness. No Meningismus. Chest/axilla: Normal chest wall appearance and motion. Nontender with no deformity. No lesions are appreciated. Cardiovascular: Regular rate and rhythm with a normal S1 and S2. No gallops, murmurs, or rubs. Normal PMI, no JVD. No pulse deficits. Respiratory: Lungs have equal breath sounds bilaterally, clear to auscultation and percussion. No rales, rhonchi or wheezes noted. No increased work of breathing, no retractions or nasal flaring. Abdomen/GI: Soft, non-tender, with normal bowel sounds. No distension or tympany. No guarding or rebound. No evidence of tenderness throughout. Back: No spinal tenderness. No costovertebral tenderness. Full range of motion. Female : Normal external genitalia. Skin: Warm, dry with normal turgor. Normal color with no rashes, no lesions, and no evidence of cellulitis. MS/ Extremity: Pulses equal, no cyanosis. Neurovascular intact. Full, normal range of motion. Neuro: Awake and alert, GCS 15, oriented to person, place, time, and situation. Cranial nerves II-XII grossly intact. Motor strength 5/5 in all extremities. Sensory grossly intact. Cerebellar exam normal. Normal gait. Psych: Awake, alert, with orientation to person, place and time. Behavior, mood, and affect are within normal limits. Vital Signs: 10/01 23:00 BP 178 / 96; Pulse 86; Resp 18; Temp 98(O); Pulse Ox 97% on R/A; Weight 58.97 kg; lp1 Height 5 ft. 7 in. (170.18 cm); Pain 9/10; 10/02 00:55 BP 129 / 74; Pulse 80; Resp 18; Pulse Ox 98% ; ea 10/01 23:00 Body Mass Index 20.36 (58.97 kg, 170.18 cm) lp1 MDM: 00:17 Patient medically screened. [facility] 00:40 Data reviewed: vital signs, nurses notes, lab test result(s). [facility] 10/02 00:56 Order name: Urine Dipstick--Ancillary (enter results) md 10/02 00:37 Order name: Urine Dipstick-Ancillary (obtain specimen); Complete Time: 00:54 [facility] Administered Medications: 00:43 Drug: Phenergan 25 mg Route: IM; Site: right gluteus; ea 01:18 Follow up: Response: Medication administered at discharge. ea 00:54 Drug: Demerol 50 mg Route: IM; Site: left gluteus; ea 01:18 Follow up: Response: Medication administered at discharge. ea Disposition: 11/07/18 00:41 Discharged to Home. Impression: Headache, Essential (primary) hypertension. - Condition is Stable. - Discharge Instructions: General Headache Without Cause, Hypertension, Hypertension, [id number], How to Take Your Blood Pressure, Zdxm-ag-Pots, Managing Your Hypertension. - Prescriptions for Fioricet with Codeine 50- 325-40-30 mg Oral capsule - take 1 capsule by ORAL route every 4 hours as needed not to exceed 6 capsules per 24hrs; 20 capsule. Zofran 4 mg Oral Tablet - take 1 tablet by ORAL route every 12 hours As needed; 10 tablet. - Medication Reconciliation Form, Thank You Letter, Antibiotic Education, Prescription Opioid Use form. - Follow up: Private Physician; When: 2 - 3 days; Reason: Recheck today's complaints, Continuance of care, Re-evaluation by your physician. - Problem is new. - Symptoms have improved. Signatures: Dispatcher [employer] EDRI Ronny Arguelles MD MD cha Pena, Laura, RN RN lp1 Polina Lentz RN RN ea Corrections: (The following items were deleted from the chart) 01:15 00:41 10/02/2018 00:41 Discharged to Home. Impression: Headache; Essential (primary) ea hypertension. Condition is Stable. Forms are Medication Reconciliation Form, Thank You Letter, Antibiotic Education, Prescription Opioid Use. Follow up: Private Physician; When: 2 - 3 days; Reason: Recheck today's complaints, Continuance of care, Re-evaluation by your physician. Problem is new. Symptoms have improved. juani
--- NOTE | 2018-10-02 00:41 | ER ---
Nurse's Notes [facility] Name: Gloria Armenta Age: 83 yrs Sex: Female : 1935 Arrival Date: 10/01/2018 Time: 22:26 Bed 5 Private MD: Diagnosis: Headache;Essential (primary) hypertension Presentation: 10/01 22:59 Presenting complaint: Patient states: Continued headache and nausea after visit lp1 tonight; States "when I have a migraine, I usually need a shot of Demerol and Phenergan to help". Transition of care: patient was not received from another setting of care. Onset of symptoms was October 01, 2018. Risk Assessment: Do you want to hurt yourself or someone else? Patient reports no desire to harm self or others. Initial Sepsis Screen: Does the patient meet any 2 criteria? No. Patient's initial sepsis screen is negative. Does the patient have a suspected source of infection? No. Patient's initial sepsis screen is negative. Care prior to arrival: None. 22:59 Method Of Arrival: Ambulatory lp1 22:59 Acuity: AURELIO 3 lp1 Triage Assessment: 23:03 Headache History: The patient has had previous headaches and this one is similar to lp1 previous episodes. General: Appears uncomfortable, Behavior is anxious. Pain: Complains of pain in head, frontal area Pain currently is 9 out of 10 on a pain scale. Pain began gradually, Also complains of nausea, inability to concentrate. Neuro: Level of Consciousness is awake, alert, obeys commands, Oriented to person, place, time, situation, Appropriate for age Gait is steady, Pupils are PERRLA. Respiratory: Respiratory effort is even, unlabored. Derm: Skin is fragile, is thin, Skin is dry, Skin is normal. Historical: - Allergies: 23:03 Aspirin; lp1 23:03 Cefaclor; lp1 23:03 Celecoxib; lp1 23:03 Cephalexin; lp1 23:03 CEPHALOSPORINS; lp1 23:03 Chlorpromazine; lp1 23:03 chlorpromazine HCl; lp1 23:03 esomeprazole mag; lp1 23:03 Ketorolac; lp1 23:03 ketorolac tromethamine; lp1 23:03 Morphine; lp1 23:03 prochlorperazine Edisylate; lp1 23:03 Prochlorperazine Maleate; lp1 23:03 Rofecoxib; lp1 23:03 Sulfa (Sulfonamide Antibiotics); lp1 23:03 SUMATRIPTAN; lp1 23:03 Sumatriptan Succinate; lp1 - Home Meds: 23:03 clonidine HCl 0.1 mg Oral tab once daily [Active]; lp1 - PMHx: 23:03 Chronic headaches; Chronic pain; Hypertension; lp1 - PSHx: 23:03 Tonsillectomy; Knee surgery; Foot surgery; rectal repair x 2; Hysterectomy; Bladder lp1 suspension; Appendectomy; - Immunization history:: Adult Immunizations up to date. - Social history:: Smoking status: Patient/guardian denies using tobacco. - Ebola Screening: : No symptoms or risks identified at this time. - Family history:: not pertinent. Screenin:03 Abuse screen: Denies threats or abuse. Denies injuries from another. Nutritional lp1 screening: No deficits noted. Tuberculosis screening: No symptoms or risk factors identified. 23:58 Fall Risk None identified. ea Assessment: 23:58 General: Appears in no apparent distress. Behavior is calm, cooperative, appropriate ea for age. Pain: Complains of pain in headache Pain currently is 10 out of 10 on a pain scale. Quality of pain is described as aching. Neuro: Level of Consciousness is awake, alert, obeys commands, Oriented to person, place, time, situation. Cardiovascular: Patient's skin is warm and dry. Respiratory: Airway is patent Respiratory effort is even, unlabored, Respiratory pattern is regular, symmetrical. :. Derm: Skin is dry, Skin is normal, Skin temperature is warm. 10/02 00:54 Reassessment: Patient and/or family updated on plan of care and expected duration. Pain ea level reassessed. Patient is alert, oriented x 3, equal unlabored respirations, skin warm/dry/pink. Discharge instructions given to patient, verbalized the understanding of instruction. Vital Signs: 10/01 23:00 BP 178 / 96; Pulse 86; Resp 18; Temp 98(O); Pulse Ox 97% on R/A; Weight 58.97 kg; lp1 Height 5 ft. 7 in. (170.18 cm); Pain 9/10; 10/02 00:55 BP 129 / 74; Pulse 80; Resp 18; Pulse Ox 98% ; ea 10/01 23:00 Body Mass Index 20.36 (58.97 kg, 170.18 cm) lp1 ED Course: 10/01 22:26 Patient arrived in ED. ds1 23:00 Triage completed. lp1 23:01 Arm band placed on left wrist. lp1 23:40 Polina Letnz, RN is Primary Nurse. ea 23:58 Patient has correct armband on for positive identification. Bed in low position. Call ea light in reach. Side rails up X 1. 10/02 00:17 Ronny Arguelles MD is Attending Physician. juani 00:55 No provider procedures requiring assistance completed. Patient did not have IV access ea during this emergency room visit. Administered Medications: 00:43 Drug: Phenergan 25 mg Route: IM; Site: right gluteus; ea 01:18 Follow up: Response: Medication administered at discharge. ea 00:54 Drug: Demerol 50 mg Route: IM; Site: left gluteus; ea 01:18 Follow up: Response: Medication administered at discharge. ea Outcome: 00:41 Discharge ordered by . juani 00:56 Condition: improved ea 00:56 Instructed on discharge instructions, follow up and referral plans. medication usage, Demonstrated understanding of instructions, follow-up care, medications, Prescriptions given X 2. 01:14 Discharged to home via wheelchair, with family. ea 01:15 Patient left the ED. ea Signatures: Ronny Arguelles MD MD cha Sanford, Demi ds1 Ryann Cheney RN RN [facility] Polina Lentz, NAT RN ea
[2018-10-02] MEDS ORDERED: PROMETHAZINE 25 MG/ML VIAL ONE (00:52)
[2018-10-02] MEDS ORDERED: MEPERIDINE HCL 25 MG/0.5 ML ONE (00:52)
[2018-10-02 01:09] LABS: Urine Blood NEGATIVE (NEG); Urine Glucose NEGATIVE (NEG); Urine Protein 2+ (NEG); Urine Specific Gravity >1.030 (1.005-1.030); Urine pH 5.5 (5.0-7.0)
[2018-10-02 01:20] VITALS: BP 178/96; TEMP 98; O2SAT 97
--- NOTE | 2018-10-02 22:17 | EKG ---
Test Date: 2018-10-01 Test Time: 20:01:27 Operator Assistant I Cementing: [place]ILL[place] MEASUREMENT RESULTS: Intervals: Rate: 94 IN: 156 QRSD: 78 QT: 380 QTc: 475 [place]: P: 21 IN: 156 QRS: 9 T: 34 INTERPRETIVE STATEMENTS: Normal sinus rhythm Cannot rule out Anterior infarct, age undetermined Abnormal ECG Electronically Signed On 10-02-18 22:17:11 MACHINIST JOB SETTER by Mj Freitas
== END 2018-10-02 01:15 | disposition home or self-care (01) ==
LOC: ER 22:25
DX: I10 Essential (primary) hypertension (principal); Z88.2 Allergy status to sulfonamides; Z88.3 Allergy status to other anti-infective agents; Z88.5 Allergy status to narcotic agent; Z88.6 Allergy status to analgesic agent; Z88.8 Allergy status to other drugs, medicaments and biological substances
CPT/HCPCS: 81003; 93005; 96372; 99283; J2175; J2550

== ENCOUNTER 2018-10-13 02:56 | Emergency (ER) | payer OTHER ==
--- OUTSIDE RECORDS SUMMARY | 2018-10-13 02:58 | XMS REPORT ---
:1935 [facility] Address [address] [place] [address] [address] [place] [address] Care Team Providers Name Role Phone NICHOLE PEREZ Unavailable Unavailable Problems This patient has no known problems. Allergies, Adverse Reactions, Alerts This patient has no known allergies or adverse reactions. Medications This patient has no known medications. Results Test Description Test Time Test Comments Text Results Atomic Results Result Comments BLOOD CULTURE 2017-12-22 05:01:00 Test Item Value Reference Range Comments CULTURE (BEAKER) (test eayg=1753) No growth in 5 days [id number] 11:31:00 Test Item Value Reference Range Comments MAGNESIUM (BEAKER) (test 2.2 mg/dL 1.6-2.6 Specimen slightly hemolyzed hvbx=773) BASIC METABOLIC [id number] 11:31:00 Test Item Value Reference Range Comments SODIUM (BEAKER) (test 139 meq/L 136-145 nnsg=207) POTASSIUM (BEAKER) (test 4.0 meq/L 3.5-5.1 Specimen slightly fjmh=626) hemolyzed CHLORIDE (BEAKER) (test 104 meq/L 98-107 qocd=531) CO2 (BEAKER) (test 27 meq/L 22-29 pldv=571) BLOOD UREA NITROGEN 7 mg/dL 7-21 (BEAKER) (test pisf=322) CREATININE (BEAKER) (test 0.60 mg/dL 0.57-1.25 Specimen slightly lcqs=249) hemolyzed GLUCOSE RANDOM (BEAKER) 113 mg/dL 70-105 (test tmbq=960) CALCIUM (BEAKER) (test 8.3 mg/dL 8.4-10.2 iwvn=386) EGFR (BEAKER) (test 95 mL/min/1.73 sq m ESTIMATED GFR IS NOT eulu=4903) ACCURATE CREATININE CLEARANCE IN PREDICTING GLOMERULAR FILTRATION RATE. ESTIMATED GFR IS NOT APPLICABLE FOR DIALYSIS PATIENTS. URINE [id number] 09:10:00 Test Item Value Reference Range Comments CULTURE (BEAKER) (test ppff=5784) Amikacin (test code=1) Aztreonam (test code=32) Cefepime (test code=51) Cefoxitin (test code=68) Ceftazidime (test code=27) Ceftriaxone (test code=52) Ertapenem (test code=38) Gentamicin (test code=18) Levofloxacin (test code=22) Meropenem (test code=34) Nitrofurantoin (test code=23) Piperacillin + Tazobactam (test code=29) Tetracycline (test code=2) Tobramycin (test code=25) Trimethoprim + Sulfamethoxazole (test code=47) CULTURE (BEAKER) (test sypw=3579) >100,000 col/mL Citrobacter braakii CBC W/PLT COUNT & AUTO [id number] 07:05:00 Test Item Value Reference Range Comments WHITE BLOOD CELL COUNT (BEAKER) (test gdkq=582) 7.5 K/ L 3.5-10.5 RED BLOOD CELL COUNT (BEAKER) (test hgpq=120) 4.30 M/ L 3.93-5.22 HEMOGLOBIN (BEAKER) (test objs=333) 10.1 GM/DL 11.2-15.7 HEMATOCRIT (BEAKER) (test klkx=474) 32.6 % 34.1-44.9 MEAN CORPUSCULAR VOLUME (BEAKER) (test tzyu=807) 75.8 fL 79.4-94.8 MEAN CORPUSCULAR HEMOGLOBIN (BEAKER) (test 23.5 pg 25.6-32.2 grap=952) MEAN CORPUSCULAR HEMOGLOBIN CONC (BEAKER) (test 31.0 GM/DL 32.2-35.5 qjlt=897) RED CELL DISTRIBUTION WIDTH (BEAKER) (test 14.1 % 11.7-14.4 kuun=878) PLATELET COUNT (BEAKER) (test ddyr=766) 289 K/CU MM 150-450 MEAN PLATELET VOLUME (BEAKER) (test ndxv=321) 9.1 fL 9.4-12.3 NUCLEATED RED BLOOD CELLS (BEAKER) (test 0 /100 WBC 0-0 vimd=830) NEUTROPHILS RELATIVE PERCENT (BEAKER) (test 73 % xecc=203) LYMPHOCYTES RELATIVE PERCENT (BEAKER) (test 15 % umlu=885) MONOCYTES RELATIVE PERCENT (BEAKER) (test 9 % zbxo=353) EOSINOPHILS RELATIVE PERCENT (BEAKER) (test 2 % fiak=401) BASOPHILS RELATIVE PERCENT (BEAKER) (test 0 % ubfb=832) NEUTROPHILS ABSOLUTE COUNT (BEAKER) (test 5.50 K/ L 1.56-6.13 ubvz=099) LYMPHOCYTES ABSOLUTE COUNT (BEAKER) (test 1.12 K/ L 1.18-3.74 sdlh=760) MONOCYTES ABSOLUTE COUNT (BEAKER) (test 0.67 K/ L 0.24-0.36 pwpo=642) EOSINOPHILS ABSOLUTE COUNT (BEAKER) (test 0.16 K/ L 0.04-0.36 uaii=504) BASOPHILS ABSOLUTE COUNT (BEAKER) (test 0.03 K/ L 0.01-0.08 cqaf=604) IMMATURE GRANULOCYTES-RELATIVE PERCENT (BEAKER) 0 % 0-1 (test cgub=3700) [id number] 08:15:00 Test Item Value Reference Range Comments MAGNESIUM (BEAKER) (test oosa=955) 1.7 mg/dL 1.6-2.6 CBC W/PLT COUNT & AUTO [id number] 04:24:00 Test Item Value Reference Range Comments WHITE BLOOD CELL COUNT (BEAKER) (test fpsh=333) 6.7 K/ L 3.5-10.5 RED BLOOD CELL COUNT (BEAKER) (test bzhj=173) 3.69 M/ L 3.93-5.22 HEMOGLOBIN (BEAKER) (test wkbr=292) 8.6 GM/DL 11.2-15.7 HEMATOCRIT (BEAKER) (test kbxa=761) 28.5 % 34.1-44.9 MEAN CORPUSCULAR VOLUME (BEAKER) (test cpux=584) 77.2 fL 79.4-94.8 MEAN CORPUSCULAR HEMOGLOBIN (BEAKER) (test 23.3 pg 25.6-32.2 hwhf=464) MEAN CORPUSCULAR HEMOGLOBIN CONC (BEAKER) (test 30.2 GM/DL 32.2-35.5 dwpn=931) RED CELL DISTRIBUTION WIDTH (BEAKER) (test 13.7 % 11.7-14.4 nlry=830) PLATELET COUNT (BEAKER) (test zabk=350) 249 K/CU MM 150-450 MEAN PLATELET VOLUME (BEAKER) (test ozvv=622) 8.8 fL 9.4-12.3 NUCLEATED RED BLOOD CELLS (BEAKER) (test 0 /100 WBC 0-0 dhia=491) NEUTROPHILS RELATIVE PERCENT (BEAKER) (test 64 % dmls=043) LYMPHOCYTES RELATIVE PERCENT (BEAKER) (test 21 % jcbo=787) MONOCYTES RELATIVE PERCENT (BEAKER) (test 12 % lsyo=368) EOSINOPHILS RELATIVE PERCENT (BEAKER) (test 3 % tbpm=189) BASOPHILS RELATIVE PERCENT (BEAKER) (test 0 % wxsy=155) NEUTROPHILS ABSOLUTE COUNT (BEAKER) (test 4.23 K/ L 1.56-6.13 xdqj=418) LYMPHOCYTES ABSOLUTE COUNT (BEAKER) (test 1.39 K/ L 1.18-3.74 xybx=658) MONOCYTES ABSOLUTE COUNT (BEAKER) (test 0.80 K/ L 0.24-0.36 hkws=267) EOSINOPHILS ABSOLUTE COUNT (BEAKER) (test 0.20 K/ L 0.04-0.36 ulgt=409) BASOPHILS ABSOLUTE COUNT (BEAKER) (test 0.02 K/ L 0.01-0.08 bsjf=256) IMMATURE GRANULOCYTES-RELATIVE PERCENT (BEAKER) 0 % 0-1 (test wouq=9806) BASIC METABOLIC [id number] 04:19:00 Test Item Value Reference Range Comments SODIUM (BEAKER) (test 139 meq/L 136-145 ifpc=840) POTASSIUM (BEAKER) (test 3.1 meq/L 3.5-5.1 amaf=742) CHLORIDE (BEAKER) (test 103 meq/L 98-107 wdnq=273) CO2 (BEAKER) (test 29 meq/L 22-29 urky=335) BLOOD UREA NITROGEN 12 mg/dL 7-21 (BEAKER) (test uqfb=133) CREATININE (BEAKER) (test 0.65 mg/dL 0.57-1.25 cykm=945) GLUCOSE RANDOM (BEAKER) 91 mg/dL 70-105 (test fljn=999) CALCIUM (BEAKER) (test 8.1 mg/dL 8.4-10.2 mubp=682) EGFR (BEAKER) (test 87 mL/min/1.73 sq m ESTIMATED GFR IS NOT qytt=8324) ACCURATE CREATININE CLEARANCE IN PREDICTING GLOMERULAR FILTRATION RATE. ESTIMATED GFR IS NOT APPLICABLE FOR DIALYSIS PATIENTS. EEG MONITORING WITH VIDEO RECORDING EACH 24 [id number] 16:19:00Addendum BeginsAddendum:Start time: 0645Stop time: 1613 There [...] 12/16/2017 to DATE OF REPORT 12/16/17 ACC: [id number] Start time: 22: 43 Stop time: 06:45 ICD-10: G93.40 CPT Code: 76784 HISTORY: 82 yo F with history of [...] Fellow Gely Cleary MD, MS Epilepsy/Neurophysiology Attending [facility] METABOLIC [id number] 04:38:00 Test Item Value Reference Range Comments SODIUM (BEAKER) (test 142 meq/L 136-145 zyob=069) POTASSIUM (BEAKER) (test 3.0 meq/L 3.5-5.1 teqh=534) CHLORIDE (BEAKER) (test 104 meq/L 98-107 rjxc=783) CO2 (BEAKER) (test 31 meq/L 22-29 dpfh=115) BLOOD UREA NITROGEN 13 mg/dL 7-21 (BEAKER) (test neta=304) CREATININE (BEAKER) (test 0.64 mg/dL 0.57-1.25 less=593) GLUCOSE RANDOM (BEAKER) 122 mg/dL 70-105 (test jupf=576) CALCIUM (BEAKER) (test 8.1 mg/dL 8.4-10.2 gtvx=800) EGFR (BEAKER) (test 89 mL/min/1.73 sq m ESTIMATED GFR IS NOT uoji=5569) ACCURATE CREATININE CLEARANCE IN PREDICTING GLOMERULAR FILTRATION RATE. ESTIMATED GFR IS NOT APPLICABLE FOR DIALYSIS PATIENTS. CBC W/PLT COUNT & AUTO [id number] 04:03:00 Test Item Value Reference Range Comments WHITE BLOOD CELL COUNT (BEAKER) (test vxvh=744) 8.6 K/ L 3.5-10.5 RED BLOOD CELL COUNT (BEAKER) (test objz=737) 3.94 M/ L 3.93-5.22 HEMOGLOBIN (BEAKER) (test pblv=323) 9.1 GM/DL 11.2-15.7 HEMATOCRIT (BEAKER) (test pbln=908) 30.3 % 34.1-44.9 MEAN CORPUSCULAR VOLUME (BEAKER) (test xxvy=061) 76.9 fL 79.4-94.8 MEAN CORPUSCULAR HEMOGLOBIN (BEAKER) (test 23.1 pg 25.6-32.2 pqhl=425) MEAN CORPUSCULAR HEMOGLOBIN CONC (BEAKER) (test 30.0 GM/DL 32.2-35.5 cwen=918) RED CELL DISTRIBUTION WIDTH (BEAKER) (test 13.4 % 11.7-14.4 yuhk=742) PLATELET COUNT (BEAKER) (test qwgu=336) 287 K/CU MM 150-450 MEAN PLATELET VOLUME (BEAKER) (test bvao=374) 8.7 fL 9.4-12.3 NUCLEATED RED BLOOD CELLS (BEAKER) (test 0 /100 WBC 0-0 hfvd=508) NEUTROPHILS RELATIVE PERCENT (BEAKER) (test 74 % kdct=009) LYMPHOCYTES RELATIVE PERCENT (BEAKER) (test 16 % cslb=783) MONOCYTES RELATIVE PERCENT (BEAKER) (test 9 % ptgn=121) EOSINOPHILS RELATIVE PERCENT (BEAKER) (test 1 % wlpl=132) BASOPHILS RELATIVE PERCENT (BEAKER) (test 0 % qpxm=900) NEUTROPHILS ABSOLUTE COUNT (BEAKER) (test 6.35 K/ L 1.56-6.13 pcjf=716) LYMPHOCYTES ABSOLUTE COUNT (BEAKER) (test 1.35 K/ L 1.18-3.74 rswo=990) MONOCYTES ABSOLUTE COUNT (BEAKER) (test 0.80 K/ L 0.24-0.36 aiiu=549) EOSINOPHILS ABSOLUTE COUNT (BEAKER) (test 0.08 K/ L 0.04-0.36 bnzb=525) BASOPHILS ABSOLUTE COUNT (BEAKER) (test 0.03 K/ L 0.01-0.08 vhmd=314) IMMATURE GRANULOCYTES-RELATIVE PERCENT (BEAKER) 0 % 0-1 (test dvbs=3024) EEG AWAKE AND [id number] 23:06:00For STAT EEG- after 5 PM weekdays, weekends and holidays, page the on-call bread supervisor Reason for exam:->seizure, AMSDATE OF TEST: 1/21/18DATE OF REPORT 12/16/17ACC: [id number]: [id number] time : 22:22Stop time: 22:43ICD-10: G93.40CPT Code: 37317 HISTORY: 82 yo F with history of [...] Fellow Nabila Sanchez M.D., FACNSProfessor of NeurologyDirector, [facility] EpilepsyHolzer Health SystemerW[facility] Abreusaint [facility] Neurophysiology Lab Electronically signed by: NABILA Foreman 12/16/2017 11:06 PMRAD, CHEST, 1 VIEW, NON [id number] 21:41: 00Reason for exam:->concern for PNAShould this [...] MDReport Verified Date/Time: 12/16/2017 21:41:51 Reading Location: [address] Reading Room [id number] 19:57:00 Test Item Value Reference Range Comments FERRITIN (BEAKER) (test qmiq=696) 36 ng/mL 5-275 VITAMIN D, [id number] 19:57:00 Test Item Value Reference Range Comments VITAMIN D 25-OH (BEAKER) (test rifh=3144) 8.2 ng/mL 6.6-49.9 Effective 09/05/2017: Reference Range ChangeNew: 6.6-49.9 ng/mL Previous: 13.0 -47.8 ng/mLRecommended Vitamin D Target Range: 30.0-40.0 ng/mLTSH/FREE T4 IF [id number] 19:57:00 Test Item Value Reference Range Comments THYROID STIMULATING HORMONE (BEAKER) (test 3.15 uIU/mL 0.35-4.94 egqx=389) VITAMIN B12 AND [id number] 19:57:00 Test Item Value Reference Range Comments VITAMIN B12 (BEAKER) (test uffe=595) 376 pg/mL 213-816 FOLATE (BEAKER) (test jfwz=941) 15.8 ng/mL >=7.0 URINALYSIS W/ [id number] 19:28:00 Test Item Value Reference Range Comments COLOR (BEAKER) (test arue=157) Yellow CLARITY (BEAKER) (test aoyh=154) Clear SPECIFIC GRAVITY UA (BEAKER) (test dqpg=385) 1.017 1.001-1.035 PH UA (BEAKER) (test cyfm=826) 5.5 5.0-8.0 PROTEIN UA (BEAKER) (test tyqd=665) 50 mg/dL Negative GLUCOSE UA (BEAKER) (test uptd=984) Negative Negative KETONES UA (BEAKER) (test idzf=121) 40 mg/dL Negative BILIRUBIN UA (BEAKER) (test lbot=325) Negative Negative BLOOD UA (BEAKER) (test hrrz=857) Negative Negative NITRITE UA (BEAKER) (test uzlh=689) Negative Negative LEUKOCYTE ESTERASE UA (BEAKER) (test lpbg=963) Moderate Negative UROBILINOGEN UA (BEAKER) (test houn=544) 0.2 mg/dL 0.2-1.0 RBC UA (BEAKER) (test nipj=637) 1 /HPF WBC UA (BEAKER) (test atea=756) 55 /HPF BACTERIA (BEAKER) (test hqlc=403) Occasional MUCUS (BEAKER) (test tmgx=4266) Many HYALINE CASTS (BEAKER) (test sbxm=016) 10 /LPF SOURCE(BEAKER) (test lbgk=0092) Urine, [place] IRON, TIBC, % SAT. (WITHOUT FERRITIN)2017-12-16 19:21:00 Test Item Value Reference Range Comments IRON (BEAKER) (test mpng=132) 24 ug/dL 40-160 TOTAL IRON BINDING CAPACITY (BEAKER) (test 309 ug/dL 250-450 fird=600) IRON % SATURATION (2) (BEAKER) (test wudc=9980) 8 % 20-55 BASIC METABOLIC [id number] 19:20:00 Test Item Value Reference Range Comments SODIUM (BEAKER) (test 141 meq/L 136-145 kvyx=380) POTASSIUM (BEAKER) (test 4.0 meq/L 3.5-5.1 Specimen moderately ioun=024) hemolyzed CHLORIDE (BEAKER) (test 102 meq/L 98-107 tdjx=731) CO2 (BEAKER) (test 30 meq/L 22-29 gmmn=320) BLOOD UREA NITROGEN 12 mg/dL 7-21 (BEAKER) (test knra=326) CREATININE (BEAKER) (test 0.66 mg/dL 0.57-1.25 Specimen moderately ytdw=092) hemolyzed GLUCOSE RANDOM (BEAKER) 102 mg/dL 70-105 (test aetr=319) CALCIUM (BEAKER) (test 8.3 mg/dL 8.4-10.2 kcyb=027) EGFR (BEAKER) (test 86 mL/min/1.73 sq m ESTIMATED GFR IS NOT teou=1130) ACCURATE CREATININE CLEARANCE IN PREDICTING GLOMERULAR FILTRATION RATE. ESTIMATED GFR IS NOT APPLICABLE FOR DIALYSIS PATIENTS. CBC W/PLT COUNT & AUTO [id number] 19:06:00 Test Item Value Reference Range Comments WHITE BLOOD CELL COUNT (BEAKER) (test zfhd=026) 8.2 K/ L 3.5-10.5 RED BLOOD CELL COUNT (BEAKER) (test ybpq=472) 4.05 M/ L 3.93-5.22 HEMOGLOBIN (BEAKER) (test srkp=053) 9.4 GM/DL 11.2-15.7 HEMATOCRIT (BEAKER) (test ngnm=438) 30.9 % 34.1-44.9 MEAN CORPUSCULAR VOLUME (BEAKER) (test fyor=944) 76.3 fL 79.4-94.8 MEAN CORPUSCULAR HEMOGLOBIN (BEAKER) (test 23.2 pg 25.6-32.2 nofy=222) MEAN CORPUSCULAR HEMOGLOBIN CONC (BEAKER) (test 30.4 GM/DL 32.2-35.5 hwjl=298) RED CELL DISTRIBUTION WIDTH (BEAKER) (test 13.6 % 11.7-14.4 nvdm=945) PLATELET COUNT (BEAKER) (test ceyh=904) 301 K/CU MM 150-450 MEAN PLATELET VOLUME (BEAKER) (test txao=983) 8.7 fL 9.4-12.3 NUCLEATED RED BLOOD CELLS (BEAKER) (test 0 /100 WBC 0-0 ojdq=350) NEUTROPHILS RELATIVE PERCENT (BEAKER) (test 78 % olet=996) LYMPHOCYTES RELATIVE PERCENT (BEAKER) (test 13 % zxop=080) MONOCYTES RELATIVE PERCENT (BEAKER) (test 9 % czfl=997) EOSINOPHILS RELATIVE PERCENT (BEAKER) (test 1 % awuw=211) BASOPHILS RELATIVE PERCENT (BEAKER) (test 0 % jmsc=371) NEUTROPHILS ABSOLUTE COUNT (BEAKER) (test 6.35 K/ L 1.56-6.13 qkkr=949) LYMPHOCYTES ABSOLUTE COUNT (BEAKER) (test 1.06 K/ L 1.18-3.74 vego=187) MONOCYTES ABSOLUTE COUNT (BEAKER) (test 0.70 K/ L 0.24-0.36 qvnf=255) EOSINOPHILS ABSOLUTE COUNT (BEAKER) (test 0.04 K/ L 0.04-0.36 urfj=255) BASOPHILS ABSOLUTE COUNT (BEAKER) (test 0.03 K/ L 0.01-0.08 gnuf=358) IMMATURE GRANULOCYTES-RELATIVE PERCENT (BEAKER) 0 % 0-1 (test oqoo=3925)
--- OUTSIDE RECORDS SUMMARY | 2018-10-13 02:58 | XMS REPORT | Clinical Summary ---
:1935 Author Organization [facility] Address [address] [place] [address] Care Team Providers Name Role Phone Thang [...] MD Chantelle Acute cystitis without hematuria after 10/12/2017 Social History Tobacco Use Types Packs/Day Years Used Date Never Smoker Smokeless Tobacco: Never Used Sex Assigned at Date Recorded Not on file Job Start Date Occupation Industry Not on file Not on file Not on file Travel History Travel Start Travel End No recent travel history available. Last Filed Vital Signs Vital Sign Reading Time Taken Blood Pressure 157/77 12/20/2017 11:34 AM [facility] Pulse 76 12/20/2017 11:34 AM [facility] Temperature 36.5 C (97.7 F) 12/20/2017 11:34 AM [facility] Respiratory Rate 18 12/20/2017 11:34 AM [facility] Oxygen Saturation 98% 12/20/2017 11:34 AM [facility] Inhaled Oxygen Concentration - - Weight 54 kg (119 lb) 12/20/2017 5:00 AM [facility] Height 157.5 cm (5' 2") 12/16/2017 5:25 PM [facility] Body Mass Index 21.77 12/20/2017 5:00 AM [facility] Plan of Treatment Not on file Procedures Procedure Name Priority Date/Time Associated Comments Diagnosis RHYTHM STRIP - SCAN 12/21/2017 2:41 PM [facility] MAGNESIUM Routine 12/19/2017 7:31 Results for this AM [facility] procedure are in the results section. BASIC METABOLIC PANEL STAT 12/19/2017 7:31 Results for this (7) AM [facility] procedure are in the results section. CBC W/PLT COUNT & STAT 12/19/2017 6:58 Results for this AUTO DIFFERENTIAL AM [facility] procedure are in the results section. CBC W/PLT COUNT & STAT 12/19/2017 6:58 Results for this AUTO DIFFERENTIAL AM [facility] procedure are in the results section. CBC W/PLT COUNT & Routine 12/18/2017 3:39 Results for this AUTO DIFFERENTIAL AM [facility] procedure are in the results section. MAGNESIUM STAT 12/18/2017 3:39 Results for this AM [facility] procedure are in the results section. CBC W/PLT COUNT & Routine 12/18/2017 3:39 Results for this AUTO DIFFERENTIAL AM [facility] procedure are in the results section. BASIC METABOLIC PANEL Routine 12/18/2017 3:39 Results for this (7) AM [facility] procedure are in the results section. EEG MONITORING WITH Routine 12/17/2017 7:00 Results for this VIDEO RECORDING EACH AM [facility] procedure are in 24 HOURS the results section. CBC W/PLT COUNT & Routine 12/17/2017 3:34 Results for this AUTO DIFFERENTIAL AM [facility] procedure are in the results section. CBC W/PLT COUNT & Routine 12/17/2017 3:34 Results for this AUTO DIFFERENTIAL AM [facility] procedure are in the results section. BASIC METABOLIC PANEL Routine 12/17/2017 3:34 Results for this (7) AM [facility] procedure are in the results section. EEG AWAKE AND DROWSY STAT 12/16/2017 10:33 Results for this PM [facility] procedure are in the results section. XR CHEST 1 VIEW Routine 12/16/2017 9:15 Results for this PORTABLE/BEDSIDE PM [facility] procedure are in the results section. URINE CULTURE Routine 12/16/2017 8:45 Results for this PM [facility] procedure are in the results section. CBC W/PLT COUNT & Routine 12/16/2017 6:50 Results for this AUTO DIFFERENTIAL PM [facility] procedure are in the results section. CBC W/PLT COUNT & Routine 12/16/2017 6:50 Results for this AUTO DIFFERENTIAL PM [facility] procedure are in the results section. VITAMIN D, 25-HYDROXY Routine 12/16/2017 6:50 Results for this PM [facility] procedure are in the results section. VITAMIN B12 AND Routine 12/16/2017 6:50 Results for this FOLATE PM [facility] procedure are in the results section. FERRITIN Routine 12/16/2017 6:50 Results for this PM [facility] procedure are in the results section. IRON, TIBC, % SAT. Routine 12/16/2017 6:50 Results for this (WITHOUT FERRITIN) PM [facility] procedure are in the results section. TSH/FREE T4 IF Routine 12/16/2017 6:50 Results for this INDICATED PM [facility] procedure are in the results section. BASIC METABOLIC PANEL Routine 12/16/2017 6:50 Results for this (7) PM [facility] procedure are in the results section. URINALYSIS W/ Routine 12/16/2017 6:50 Results for this MICROSCOPIC PM [facility] procedure are in the results section. BLOOD CULTURE Routine 12/16/2017 6:50 Results for this PM [facility] procedure are in the results section. after 10/12/2017 Results RHYTHM STRIP - SCAN (12/21/2017 2:41 PM [facility]) Narrative Performed At Magnesium (12/19/2017 7:31 AM [facility])Only the most recent of2 resultswithin the time period is included. Magnesium 2.2Comment: Specimen slightly 1.6 - 2.6 mg/dL [facility] Specimen Blood - Line, Venous Performing Organization Address City/[facility] Phone Number [address] [address] CENTER Basic Metabolic Panel (12/19/2017 7:31 AM [facility])Only the most recent of4 resultswithin the time period is included. Sodium 139 136 - 145 meq/L [facility] Potassium 4.0Comment: Specimen slightly 3.5 - 5.1 meq/L [facility] Chloride 104 98 - 107 meq/L [facility] CO2 27 22 - 29 meq/L [facility] BUN 7 7 - 21 mg/dL [facility] Creatinine 0.60Comment: Specimen 0.57 - 1.25 mg/dL [facility] Glucose 113 (H) 70 - 105 mg/dL [facility] Calcium 8.3 (L) 8.4 - 10.2 mg/dL [facility] EGFR 95Comment: ESTIMATED GFR IS mL/min/1.73 sq m [facility] NOT ACCURATE CREATININE [facility] CLEARANCE IN PREDICTING GLOMERULAR FILTRATION RATE. ESTIMATED GFR IS NOT APPLICABLE FOR DIALYSIS PATIENTS. Specimen Blood - Line, Venous Performing Organization Address City/[facility] Phone Number [address]SE CBC with platelet count + automated diff (12/19/2017 6:58 AM [facility])Only the most recent of4 resultswithin the time period is included. WBC 7.5 3.5 - 10.5 K/L [facility] RBC 4.30 3.93 - 5.22 M/L [facility] Hemoglobin 10.1 (L) 11.2 - 15.7 GM/DL [facility] Hematocrit 32.6 (L) 34.1 - 44.9 % [facility] MCV 75.8 (L) 79.4 - 94.8 fL [facility] MCH 23.5 (L) 25.6 - 32.2 pg [facility] MCHC 31.0 (L) 32.2 - 35.5 GM/DL [facility] RDW 14.1 11.7 - 14.4 % [facility] Platelets 289 150 - 450 K/CU MM [facility] MPV 9.1 (L) 9.4 - 12.3 fL [facility] nRBC 0 0 - 0 /100 WBC [facility] % Neutros 73 % [facility] % Lymphs 15 % [facility] % Monos 9 % [facility] % Eos 2 % [facility] % Baso 0 % [facility] # Neutros 5.50 1.56 - 6.13 K/L [facility] # Lymphs 1.12 (L) 1.18 - 3.74 K/L [facility] # Monos 0.67 (H) 0.24 - 0.36 K/L [facility] # Eos 0.16 0.04 - 0.36 K/L [facility] # Baso 0.03 0.01 - 0.08 K/L [facility] Immature Granulocytes-Relative 0 0 - 1 % [facility] Specimen Blood - Line, Venous Performing Organization Address City/State/Zipcode Phone Number [facility] [address] [place] [address] CENTER EEG monitoring with video recording each 24 hours (12/17/2017 7:00 AM [facility]) Narrative Performed At Addendum Begins GE RIS [...] to 12/17/2017 DATE OF REPORT 12/16/17 ACC: [id number] Start time: 22:43 Stop time: 06:45 ICD-10: G93.40 CPT Code: 07161 HISTORY: 82 yo F with history of chronic pain, chronic Lozano, osteoporosis, HTN, who was transferred from [facility] for AMS and seizures. UDS + (patient [...] External Ris In - 12/17/2017 4:19 PM [facility] Addendum Begins Addendum: Start time: 0645 Stop [...] to 12/17/2017 DATE OF REPORT 12/16/17 ACC: [id number] Start time: 22:43 Stop time: 06:45 ICD-10: G93.40 CPT Code: 77091 HISTORY: 82 yo F with history of [...] Attending Performing Organization Address City/State/Zipcode Phone Number [facility] EEG AWAKE AND DROWSY (12/16/2017 10:33 PM [facility]) Narrative Performed At DATE OF TEST: 12/16/17 [facility] DATE OF REPORT 12/16/17 ACC: [id number] Start time: 22:22 Stop time: 22:43 ICD-10: G93.40 CPT Code: 71241 HISTORY: 82 yo F with history of [...] Galeas MD Epilepsy Fellow Nabila Sanchez M.D., [facility] Professor of Neurology Director, [facility] Epilepsy Center Head, [facility] Neurophysiology Lab Procedure Note Interface, External Ris In - 12/16/2017 11:06 PM [facility] DATE OF TEST: 12/16/17 DATE OF REPORT 12/16/17 ACC: [id number] Start time: 22:22 Stop time: 22:43 ICD-10: G93.40 CPT Code: 90181 HISTORY: 82 yo F with history of chronic pain, chronic Lozano, osteoporosis, HTN, who was transferred from [facility] for AMS and seizures. UDS + (patient [...] Galeas MD Epilepsy Fellow Nabila Sanchez M.D., [facility] Professor of Neurology Director, [facility] Epilepsy [place]ove Head, [facility] Neurophysiology Lab Performing Organization Address City/State/Zipcode Phone Number [facility] XR chest 1 view portable / bedside (12/16/2017 9:15 PM [facility]) Narrative Performed At FINAL REPORT [facility] INDICATION: concern for PNA COMPARISON: None TECHNIQUE: Single frontal view of the chest. FINDINGS: Limited by severe scoliosis and contractures. Lungs and pleura: Clear lungs. No effusion. Heart and mediastinum: Normal heart size. Unremarkable mediastinal contours. Osseous structures: No acute abnormality. Other: None. IMPRESSION: No acute intrathoracic abnormality. Signed: JR Lamb Robert MD Report Verified Date/Time:12/16/2017 21:41:51 Reading Location: [address] Reading Room Procedure Note Interface, External Ris In - 12/16/2017 9:44 PM [facility] FINAL REPORT INDICATION: concern for PNA COMPARISON: None TECHNIQUE: Single frontal view of the chest. FINDINGS: Limited by severe scoliosis and contractures. Lungs and pleura: Clear lungs. No effusion. Heart and mediastinum: Normal heart size. Unremarkable mediastinal contours. Osseous structures: No acute abnormality. Other: None. IMPRESSION: No acute intrathoracic abnormality. Signed: JR Lamb Robert MD Report Verified Date/Time: 12/16/2017 21:41:51 Reading Location: [address] Reading Room Performing Organization Address City/State/Zipcode Phone Number GE RIS Urine culture (12/16/2017 8:45 PM [facility]) Result [facility] Result CITROBACTER BRAAKII (A) [facility] Specimen Urine - Urine, Catalan Organism Antibiotic [...] + Sulfamethoxazole >=320: Resistant Performing Organization Address [facility] Phone Number [address] [address] CENTER Vitamin B12 and Folate (12/16/2017 6:50 PM [facility]) Vitamin B12 376 213 - 816 pg/mL [facility] Folate 15.8 >=7.0 ng/mL [facility] Specimen Blood Performing Organization Address City/State/[facility] Phone Number [address] [address] CENTER TSH/Free T4 If Indicated (12/16/2017 6:50 PM [facility]) TSH 3.15 0.35 - 4.94 uIU/mL [facility] Specimen Blood Performing Organization Address [facility] Cent[facility] Phone Number [address] [address] CENTER Iron, TIBC, % sat. (without ferritin) (12/16/2017 6:50 PM [facility]) Iron 24 (L) 40 - 160 ug/dL [facility] TIBC 309 250 - 450 ug/dL [facility] Iron % Saturation 8 (L) 20 - 55 % [facility] Specimen Blood Performing Organization Address [facility] Phone Number [address] Vitamin D, 25-Hydroxy (12/16/2017 6:50 PM [facility]) Vitamin D 25-Hydroxy 8.2 6.6 - 49.9 ng/mL [facility] Specimen Blood Narrative Performed At [facility] Effective 09/05/2017: Reference Range Change New: 6.6-49.9 ng/mL Previous: 13.0-47.8 ng/mL Recommended Vitamin D Target Range: 30.0-40.0 ng/mL Performing Organization Address [facility] Phone Number [address] Blood culture (12/16/2017 6:50 PM [facility]) Result No growth in 5 days [facility] Specimen Blood - Arm, Right Performing Organization Address [facility] Phone Number [address] Urinalysis w/ Microscopic (12/16/2017 6:50 PM [facility]) Color, UA Yellow [facility] Clarity, UA Clear [facility] Specific [place], UA 1.017 1.001 - 1.035 [facility] pH, UA 5.5 5.0 - 8.0 [facility] Protein, UA 50 mg/dL (A) Negative [facility] Glucose, UA Negative Negative [facility] Ketones, UA 40 mg/dL (A) Negative [facility] Bilirubin, UA Negative Negative [facility] Blood, UA Negative Negative [facility] Nitrite, UA Negative Negative [facility] Leukocytes, UA Moderate (A) Negative [facility] Urobilinogen, UA 0.2 0.2 - 1.0 mg/dL [facility] RBC, UA 1 /HPF [facility] WBC, UA 55 /HPF [facility] Bacteria, UA Occasional [facility] Mucus Many [facility] Hyaline Casts, UA 10 /LPF [facility] Specimen Source Urine, Catalan [facility] Specimen Urine - Urine, Catalan Performing Organization Address City/[facility]/Zipcode Phone Number [facility] [address] [place] [address] Ferritin (12/16/2017 6:50 PM [facility]) Ferritin 36 5 - 275 ng/mL [facility] Specimen Blood Performing Organization Address City/[facility]/Zipcode Phone Number [facility] [address] [place] [address] CENTER after 10/12/2017 Insurance Payer Benefit Plan / Group Subscriber ID Type Phone Address MEDICARE MEDICARE A B xxxxxxxxxx Medicare AETNA - MGD CARE AETNA INDEMNITY NON CONTR xxxxxxxxx Comm Advance Directives For more information, please contact:[address] [phone] Code Status Date Activated Date Inactivated Comments Full Code 12/16/2017 5:47 PM 12/16/2017 8:51 PM This code status was determined by: Patient
--- NOTE | 2018-10-13 03:52 | ER ---
Nurse's Notes [facility] Name: Gloria Armenta Age: 83 yrs Sex: Female : 1935 Arrival Date: 10/13/2018 Time: 03:01 Bed 14 Private MD: Thang Montero Diagnosis: Acute headache Presentation: 10/13 03:24 Presenting complaint: Patient states: I have a migraine that started around 1999 last jb4 night (10/12) and I was vomiting this time. It happened twice. Transition of care: patient was not received from another setting of care. Onset of symptoms was October 13, 2018. Risk Assessment: Do you want to hurt yourself or someone else? Patient reports no desire to harm self or others. Initial Sepsis Screen: Does the patient meet any 2 criteria? No. Patient's initial sepsis screen is negative. Does the patient have a suspected source of infection? No. Patient's initial sepsis screen is negative. Care prior to arrival: None. 03:24 Method Of Arrival: Ambulatory 4 03:24 Acuity: AURELIO 4 jb4 Triage Assessment: 03:30 Headache History: The patient has had previous headaches and this one is similar to jb4 previous episodes. General: Appears in no apparent distress. uncomfortable, Behavior is calm, cooperative, appropriate for age. Pain: Pain currently is 8 out of 10 on a pain scale. Pain began 1 day ago. Is continuous, Also complains of nausea. EENT: No signs and/or symptoms were reported regarding the EENT system. Neuro: Level of Consciousness is awake, alert, obeys commands, Oriented to person, place, time, situation. Cardiovascular: Patient's skin is warm and dry. Respiratory: Airway is patent Respiratory effort is even, unlabored, Respiratory pattern is regular, symmetrical. GI: Reports nausea, vomiting. : No signs and/or symptoms were reported regarding the genitourinary system. Derm: Skin is intact, Skin is pink, warm \T\ dry. Musculoskeletal: Circulation, motion, and sensation intact. Historical: - Allergies: 03:30 Aspirin; jb4 03:30 Cefaclor; jb4 03:30 Celecoxib; jb4 03:30 Cephalexin; jb4 03:30 CEPHALOSPORINS; jb4 03:30 Chlorpromazine; jb4 03:30 chlorpromazine HCl; jb4 03:30 esomeprazole mag; jb4 03:30 Ketorolac; jb4 03:30 ketorolac tromethamine; jb4 03:30 Morphine; jb4 03:30 prochlorperazine Edisylate; jb4 03:30 Prochlorperazine Maleate; jb4 03:30 Rofecoxib; jb4 03:30 Sulfa (Sulfonamide Antibiotics); jb4 03:30 SUMATRIPTAN; jb4 03:30 Sumatriptan Succinate; jb4 - Home Meds: 03:30 clonidine HCl 0.1 mg Oral tab once daily [Active]; gabapentin 300 mg oral cap [Active]; jb4 amlodipine 5 mg tab [Active]; levothyroxine 25 mcg tab [Active]; - PMHx: 03:30 Chronic headaches; Chronic pain; Hypertension; jb4 - PSHx: 03:30 Tonsillectomy; Foot surgery; Knee surgery; rectal repair x 2; Bladder suspension; jb4 Appendectomy; Hysterectomy; - Immunization history:: Adult Immunizations up to date. - Social history:: Smoking status: Patient/guardian denies using tobacco. - Ebola Screening: : No symptoms or risks identified at this time. Screenin:26 Abuse screen: Denies threats or abuse. Denies injuries from another. Nutritional ak1 screening: No deficits noted. Tuberculosis screening: No symptoms or risk factors identified. Fall Risk None identified. Vital Signs: 03:30 BP 179 / 83; Pulse 86; Resp 18; Temp 98.1; Pulse Ox 99% on R/A; Weight 63.96 kg; Height jb4 5 ft. 7 in. (170.18 cm); 03:30 Body Mass Index 22.08 (63.96 kg, 170.18 cm) jb4 ED Course: 03:01 Patient arrived in ED. es 03:02 Thang Montero DO is Private Physician. es 03:24 Michael Hoyos, NAT is Primary Nurse. jb4 03:26 Triage completed. jb4 03:30 Arm band placed on left wrist. jb4 03:42 Shen Hampton MD is Attending Physician. pkl 04:27 Patient has correct armband on for positive identification. Bed in low position. Call ak1 light in reach. Side rails up X 1. Pulse ox on. NIBP on. 04:27 No provider procedures requiring assistance completed. Patient did not have IV access ak1 during this emergency room visit. Administered Medications: 04:05 Drug: Zofran 4 mg Route: PO; ak1 04:10 Follow up: Response: No adverse reaction ak1 04:10 Drug: UltRAM 50 mg Route: PO; ak1 04:28 Follow up: Response: No adverse reaction; Pain is decreased ak1 Outcome: 03:51 Discharge ordered by . acosta 04:27 Discharged to home via wheelchair, with family. ak1 04:27 Condition: improved 04:27 Discharge instructions given to patient, Instructed on discharge instructions, follow up and referral plans. no drinking with medication, no driving heavy equipment, medication usage, Demonstrated understanding of instructions, follow-up care, medications, Prescriptions given X 2. 04:30 Patient left the ED. ak1 Signatures: Shen Hampton MD MD pkl Salyer, Edna es Krenek, Amber RN RN ak1 Michael Hoyos RN RN jb4
--- NOTE | 2018-10-13 03:52 | EDPHYS ---
Physician Documentation [facility] Name: Gloria Armenta Age: 83 yrs Sex: Female : 1935 Arrival Date: 10/13/2018 Time: 03:01 Bed 14 Private MD: Thang Montero ED Physician Shen Hampton HPI: 10/13 03:48 This 83 yrs old Female presents to ER via Ambulatory with complaints of pkl Headache, Nausea. 03:48 The patient complains of pain to the top of head and forehead. The patient describes pkl the headache as constant. Onset: The symptoms/episode began/occurred just prior to arrival, 6 hour(s) ago. Associated signs and symptoms: Pertinent positives: nausea. The patient has experienced similar episodes in the past, multiple times. Historical: - Allergies: 03:30 Aspirin; jb4 03:30 Cefaclor; jb4 03:30 Celecoxib; jb4 03:30 Cephalexin; jb4 03:30 CEPHALOSPORINS; jb4 03:30 Chlorpromazine; jb4 03:30 chlorpromazine HCl; jb4 03:30 esomeprazole mag; jb4 03:30 Ketorolac; jb4 03:30 ketorolac tromethamine; jb4 03:30 Morphine; jb4 03:30 prochlorperazine Edisylate; jb4 03:30 Prochlorperazine Maleate; jb4 03:30 Rofecoxib; jb4 03:30 Sulfa (Sulfonamide Antibiotics); jb4 03:30 SUMATRIPTAN; jb4 03:30 Sumatriptan Succinate; jb4 - Home Meds: 03:30 clonidine HCl 0.1 mg Oral tab once daily [Active]; gabapentin 300 mg oral cap [Active]; jb4 amlodipine 5 mg tab [Active]; levothyroxine 25 mcg tab [Active]; - PMHx: 03:30 Chronic headaches; Chronic pain; Hypertension; jb4 - PSHx: 03:30 Tonsillectomy; Foot surgery; Knee surgery; rectal repair x 2; Bladder suspension; jb4 Appendectomy; Hysterectomy; - Immunization history:: Adult Immunizations up to date. - Social history:: Smoking status: Patient/guardian denies using tobacco. - Ebola Screening: : No symptoms or risks identified at this time. ROS: 03:48 Eyes: Negative for injury, pain, redness, and discharge, ENT: Negative for injury, pkl pain, and discharge, Neck: Negative for injury, pain, and swelling, Cardiovascular: Negative for chest pain, palpitations, and edema, Respiratory: Negative for shortness of breath, cough, wheezing, and pleuritic chest pain, Abdomen/GI: Negative for abdominal pain, nausea, vomiting, diarrhea, and constipation, Back: Negative for injury and pain, : Negative for injury, bleeding, discharge, and swelling, MS/Extremity: Negative for injury and deformity, Skin: Negative for injury, rash, and discoloration. 03:48 Neuro: Positive for headache. Exam: 03:48 Head/Face: Normocephalic, atraumatic. Eyes: Pupils equal round and reactive to light, pkl extra-ocular motions intact. Lids and lashes normal. Conjunctiva and sclera are non-icteric and not injected. Cornea within normal limits. Periorbital areas with no swelling, redness, or edema. ENT: Nares patent. No nasal discharge, no septal abnormalities noted. Tympanic membranes are normal and external auditory canals are clear. Oropharynx with no redness, swelling, or masses, exudates, or evidence of obstruction, uvula midline. Mucous membranes moist. Neck: Trachea midline, no thyromegaly or masses palpated, and no cervical lymphadenopathy. Supple, full range of motion without nuchal rigidity, or vertebral point tenderness. No Meningismus. Chest/axilla: Normal chest wall appearance and motion. Nontender with no deformity. No lesions are appreciated. Cardiovascular: Regular rate and rhythm with a normal S1 and S2. No gallops, murmurs, or rubs. Normal PMI, no JVD. No pulse deficits. Respiratory: Lungs have equal breath sounds bilaterally, clear to auscultation and percussion. No rales, rhonchi or wheezes noted. No increased work of breathing, no retractions or nasal flaring. Abdomen/GI: Soft, non-tender, with normal bowel sounds. No distension or tympany. No guarding or rebound. No evidence of tenderness throughout. Back: No spinal tenderness. No costovertebral tenderness. Full range of motion. Skin: Warm, dry with normal turgor. Normal color with no rashes, no lesions, and no evidence of cellulitis. MS/ Extremity: Pulses equal, no cyanosis. Neurovascular intact. Full, normal range of motion. Neuro: Awake and alert, GCS 15, oriented to person, place, time, and situation. Cranial nerves II-XII grossly intact. Motor strength 5/5 in all extremities. Sensory grossly intact. Cerebellar exam normal. Normal gait. Vital Signs: 03:30 BP 179 / 83; Pulse 86; Resp 18; Temp 98.1; Pulse Ox 99% on R/A; Weight 63.96 kg; Height jb4 5 ft. 7 in. (170.18 cm); 03:30 Body Mass Index 22.08 (63.96 kg, 170.18 cm) jb4 MDM: 03:42 Patient medically screened. pkl 03:48 Data reviewed: vital signs, nurses notes. pkl Administered Medications: 04:05 Drug: Zofran 4 mg Route: PO; ak1 04:10 Follow up: Response: No adverse reaction ak1 04:10 Drug: UltRAM 50 mg Route: PO; ak1 04:28 Follow up: Response: No adverse reaction; Pain is decreased ak1 Disposition: 10/13/18 03:51 Discharged to Home. Impression: Acute headache. - Condition is Stable. - Prescriptions for Ultram 50 mg Oral Tablet - take 1 tablet by ORAL route 2 times per day As needed; 20 tablet. Zofran 4 mg Oral Tablet - take 1 tablet by ORAL route every 12 hours As needed; 6 tablet. - Medication Reconciliation Form, Thank You Letter, Antibiotic Education, Prescription Opioid Use form. - Follow up: Private Physician; When: 2 - 3 days; Reason: Re-evaluation by your physician. - Problem is new. - Symptoms have improved. Signatures: Shen Hampton MD MD pkl Marsha Miles RN RN ak1 Michael Hoyos RN RN jb4 Corrections: (The following items were deleted from the chart) 04:30 03:51 10/13/2018 03:51 Discharged to Home. Impression: Acute headache. Condition is ak1 Stable. Forms are Medication Reconciliation Form, Thank You Letter, Antibiotic Education, Prescription Opioid Use. Follow up: Private Physician; When: 2 - 3 days; Reason: Re-evaluation by your physician. Problem is new. Symptoms have improved. pkl
[2018-10-13] MEDS ORDERED: ONDANSETRON 4 MG (ODT) TAB ONE (04:13)
[2018-10-13] MEDS ORDERED: TRAMADOL HCL 50 MG TAB ONE (04:16)
[2018-10-13 05:01] VITALS: BP 179/83; TEMP 98.1; O2SAT 99
== END 2018-10-13 04:30 | disposition home or self-care (01) ==
LOC: ER 02:56
DX: R51 Headache (principal); I10 Essential (primary) hypertension; Z79.899 Other long term (current) drug therapy
CPT/HCPCS: 99283

== ENCOUNTER 2018-10-13 12:25 | Emergency (ER) | payer OTHER ==
--- OUTSIDE RECORDS SUMMARY | 2018-10-13 12:29 | XMS REPORT ---
:1935 Author Organization [facility] Address [address] [place] [address] [address] [place] [address] Care Team Providers Name Role Phone NICHOLE PEREZ Unavailable Unavailable Problems This patient has no known problems. Allergies, Adverse Reactions, Alerts This patient has no known allergies or adverse reactions. Medications This patient has no known medications. Results Test Description Test Time Test Comments Text Results Atomic Results Result Comments BLOOD CULTURE 2017-12-22 05:01:00 Test Item Value Reference Range Comments CULTURE (BEAKER) (test uvvj=7670) No growth in 5 days [id number] 11:31:00 Test Item Value Reference Range Comments MAGNESIUM (BEAKER) (test 2.2 mg/dL 1.6-2.6 Specimen slightly hemolyzed vrfo=837) BASIC METABOLIC [id number] 11:31:00 Test Item Value Reference Range Comments SODIUM (BEAKER) (test 139 meq/L 136-145 pdbg=509) POTASSIUM (BEAKER) (test 4.0 meq/L 3.5-5.1 Specimen slightly wnhb=304) hemolyzed CHLORIDE (BEAKER) (test 104 meq/L 98-107 cxbp=703) CO2 (BEAKER) (test 27 meq/L 22-29 oeig=152) BLOOD UREA NITROGEN 7 mg/dL 7-21 (BEAKER) (test hykj=074) CREATININE (BEAKER) (test 0.60 mg/dL 0.57-1.25 Specimen slightly mmqd=015) hemolyzed GLUCOSE RANDOM (BEAKER) 113 mg/dL 70-105 (test laer=031) CALCIUM (BEAKER) (test 8.3 mg/dL 8.4-10.2 vfxs=322) EGFR (BEAKER) (test 95 mL/min/1.73 sq m ESTIMATED GFR IS NOT ghzq=2924) ACCURATE CREATININE CLEARANCE IN PREDICTING GLOMERULAR FILTRATION RATE. ESTIMATED GFR IS NOT APPLICABLE FOR DIALYSIS PATIENTS. URINE [id number] 09:10:00 Test Item Value Reference Range Comments CULTURE (BEAKER) (test dqho=8018) Amikacin (test code=1) Aztreonam (test code=32) Cefepime (test code=51) Cefoxitin (test code=68) Ceftazidime (test code=27) Ceftriaxone (test code=52) Ertapenem (test code=38) Gentamicin (test code=18) Levofloxacin (test code=22) Meropenem (test code=34) Nitrofurantoin (test code=23) Piperacillin + Tazobactam (test code=29) Tetracycline (test code=2) Tobramycin (test code=25) Trimethoprim + Sulfamethoxazole (test code=47) CULTURE (BEAKER) (test slrv=2473) >100,000 col/mL Citrobacter braakii CBC W/PLT COUNT & AUTO [id number] 07:05:00 Test Item Value Reference Range Comments WHITE BLOOD CELL COUNT (BEAKER) (test yzwv=193) 7.5 K/ L 3.5-10.5 RED BLOOD CELL COUNT (BEAKER) (test gffq=710) 4.30 M/ L 3.93-5.22 HEMOGLOBIN (BEAKER) (test njmp=928) 10.1 GM/DL 11.2-15.7 HEMATOCRIT (BEAKER) (test jytp=145) 32.6 % 34.1-44.9 MEAN CORPUSCULAR VOLUME (BEAKER) (test ccuq=125) 75.8 fL 79.4-94.8 MEAN CORPUSCULAR HEMOGLOBIN (BEAKER) (test 23.5 pg 25.6-32.2 zlyr=041) MEAN CORPUSCULAR HEMOGLOBIN CONC (BEAKER) (test 31.0 GM/DL 32.2-35.5 jmih=169) RED CELL DISTRIBUTION WIDTH (BEAKER) (test 14.1 % 11.7-14.4 pizh=289) PLATELET COUNT (BEAKER) (test aifr=417) 289 K/CU MM 150-450 MEAN PLATELET VOLUME (BEAKER) (test zack=149) 9.1 fL 9.4-12.3 NUCLEATED RED BLOOD CELLS (BEAKER) (test 0 /100 WBC 0-0 sjqh=272) NEUTROPHILS RELATIVE PERCENT (BEAKER) (test 73 % lazm=257) LYMPHOCYTES RELATIVE PERCENT (BEAKER) (test 15 % tkwj=391) MONOCYTES RELATIVE PERCENT (BEAKER) (test 9 % hfkq=641) EOSINOPHILS RELATIVE PERCENT (BEAKER) (test 2 % pqxn=893) BASOPHILS RELATIVE PERCENT (BEAKER) (test 0 % xtav=744) NEUTROPHILS ABSOLUTE COUNT (BEAKER) (test 5.50 K/ L 1.56-6.13 gxbx=114) LYMPHOCYTES ABSOLUTE COUNT (BEAKER) (test 1.12 K/ L 1.18-3.74 tvvt=684) MONOCYTES ABSOLUTE COUNT (BEAKER) (test 0.67 K/ L 0.24-0.36 fysj=960) EOSINOPHILS ABSOLUTE COUNT (BEAKER) (test 0.16 K/ L 0.04-0.36 nwvc=798) BASOPHILS ABSOLUTE COUNT (BEAKER) (test 0.03 K/ L 0.01-0.08 gioc=753) IMMATURE GRANULOCYTES-RELATIVE PERCENT (BEAKER) 0 % 0-1 (test olyp=5979) [id number] 08:15:00 Test Item Value Reference Range Comments MAGNESIUM (BEAKER) (test kkqb=147) 1.7 mg/dL 1.6-2.6 CBC W/PLT COUNT & AUTO [id number] 04:24:00 Test Item Value Reference Range Comments WHITE BLOOD CELL COUNT (BEAKER) (test ekah=066) 6.7 K/ L 3.5-10.5 RED BLOOD CELL COUNT (BEAKER) (test zqbq=928) 3.69 M/ L 3.93-5.22 HEMOGLOBIN (BEAKER) (test rdga=844) 8.6 GM/DL 11.2-15.7 HEMATOCRIT (BEAKER) (test mrfj=045) 28.5 % 34.1-44.9 MEAN CORPUSCULAR VOLUME (BEAKER) (test cseu=004) 77.2 fL 79.4-94.8 MEAN CORPUSCULAR HEMOGLOBIN (BEAKER) (test 23.3 pg 25.6-32.2 rbtf=437) MEAN CORPUSCULAR HEMOGLOBIN CONC (BEAKER) (test 30.2 GM/DL 32.2-35.5 ubss=137) RED CELL DISTRIBUTION WIDTH (BEAKER) (test 13.7 % 11.7-14.4 owbe=095) PLATELET COUNT (BEAKER) (test xgoz=619) 249 K/CU MM 150-450 MEAN PLATELET VOLUME (BEAKER) (test oycb=007) 8.8 fL 9.4-12.3 NUCLEATED RED BLOOD CELLS (BEAKER) (test 0 /100 WBC 0-0 kppw=338) NEUTROPHILS RELATIVE PERCENT (BEAKER) (test 64 % kpvd=159) LYMPHOCYTES RELATIVE PERCENT (BEAKER) (test 21 % yriz=405) MONOCYTES RELATIVE PERCENT (BEAKER) (test 12 % rbje=543) EOSINOPHILS RELATIVE PERCENT (BEAKER) (test 3 % bspk=699) BASOPHILS RELATIVE PERCENT (BEAKER) (test 0 % yptp=177) NEUTROPHILS ABSOLUTE COUNT (BEAKER) (test 4.23 K/ L 1.56-6.13 fgxg=680) LYMPHOCYTES ABSOLUTE COUNT (BEAKER) (test 1.39 K/ L 1.18-3.74 dlfs=999) MONOCYTES ABSOLUTE COUNT (BEAKER) (test 0.80 K/ L 0.24-0.36 frzu=003) EOSINOPHILS ABSOLUTE COUNT (BEAKER) (test 0.20 K/ L 0.04-0.36 mglk=528) BASOPHILS ABSOLUTE COUNT (BEAKER) (test 0.02 K/ L 0.01-0.08 xrze=761) IMMATURE GRANULOCYTES-RELATIVE PERCENT (BEAKER) 0 % 0-1 (test ecaq=4263) BASIC METABOLIC [id number] 04:19:00 Test Item Value Reference Range Comments SODIUM (BEAKER) (test 139 meq/L 136-145 irop=465) POTASSIUM (BEAKER) (test 3.1 meq/L 3.5-5.1 xzos=519) CHLORIDE (BEAKER) (test 103 meq/L 98-107 xlbz=292) CO2 (BEAKER) (test 29 meq/L 22-29 wvqw=178) BLOOD UREA NITROGEN 12 mg/dL 7-21 (BEAKER) (test ukdt=895) CREATININE (BEAKER) (test 0.65 mg/dL 0.57-1.25 igqs=454) GLUCOSE RANDOM (BEAKER) 91 mg/dL 70-105 (test ejlo=604) CALCIUM (BEAKER) (test 8.1 mg/dL 8.4-10.2 ooji=242) EGFR (BEAKER) (test 87 mL/min/1.73 sq m ESTIMATED GFR IS NOT iirb=6248) ACCURATE CREATININE CLEARANCE IN PREDICTING GLOMERULAR FILTRATION RATE. ESTIMATED GFR IS NOT APPLICABLE FOR DIALYSIS PATIENTS. EEG MONITORING WITH VIDEO RECORDING EACH 24 [id number] 16:19:00Addendum BeginsAddendum:Start time: 0645Stop time: 1613 There [...] 12/16/2017 to DATE OF REPORT 12/16/17 ACC: [id number] EE-[id number] Start time: 22: 43 Stop time: 06:45 ICD-10: G93.40 CPT Code: 83274 HISTORY: 82 yo F with history of [...] MS Epilepsy/Neurophysiology Attending [facility] METABOLIC [id number] 04:38:00 Test Item Value Reference Range Comments SODIUM (BEAKER) (test 142 meq/L 136-145 nncm=478) POTASSIUM (BEAKER) (test 3.0 meq/L 3.5-5.1 muts=150) CHLORIDE (BEAKER) (test 104 meq/L 98-107 axcl=513) CO2 (BEAKER) (test 31 meq/L 22-29 jwqy=427) BLOOD UREA NITROGEN 13 mg/dL 7-21 (BEAKER) (test asbw=495) CREATININE (BEAKER) (test 0.64 mg/dL 0.57-1.25 gkof=186) GLUCOSE RANDOM (BEAKER) 122 mg/dL 70-105 (test xfjk=237) CALCIUM (BEAKER) (test 8.1 mg/dL 8.4-10.2 ohcw=570) EGFR (BEAKER) (test 89 mL/min/1.73 sq m ESTIMATED GFR IS NOT wird=0046) ACCURATE CREATININE CLEARANCE IN PREDICTING GLOMERULAR FILTRATION RATE. ESTIMATED GFR IS NOT APPLICABLE FOR DIALYSIS PATIENTS. CBC W/PLT COUNT & AUTO [id number] 04:03:00 Test Item Value Reference Range Comments WHITE BLOOD CELL COUNT (BEAKER) (test bioo=240) 8.6 K/ L 3.5-10.5 RED BLOOD CELL COUNT (BEAKER) (test djuh=623) 3.94 M/ L 3.93-5.22 HEMOGLOBIN (BEAKER) (test pptv=551) 9.1 GM/DL 11.2-15.7 HEMATOCRIT (BEAKER) (test zcbh=122) 30.3 % 34.1-44.9 MEAN CORPUSCULAR VOLUME (BEAKER) (test pili=798) 76.9 fL 79.4-94.8 MEAN CORPUSCULAR HEMOGLOBIN (BEAKER) (test 23.1 pg 25.6-32.2 jkka=890) MEAN CORPUSCULAR HEMOGLOBIN CONC (BEAKER) (test 30.0 GM/DL 32.2-35.5 ismq=337) RED CELL DISTRIBUTION WIDTH (BEAKER) (test 13.4 % 11.7-14.4 usjv=088) PLATELET COUNT (BEAKER) (test zwyg=406) 287 K/CU MM 150-450 MEAN PLATELET VOLUME (BEAKER) (test bbrs=232) 8.7 fL 9.4-12.3 NUCLEATED RED BLOOD CELLS (BEAKER) (test 0 /100 WBC 0-0 dcdo=257) NEUTROPHILS RELATIVE PERCENT (BEAKER) (test 74 % gxmh=418) LYMPHOCYTES RELATIVE PERCENT (BEAKER) (test 16 % vtrk=111) MONOCYTES RELATIVE PERCENT (BEAKER) (test 9 % ozvw=882) EOSINOPHILS RELATIVE PERCENT (BEAKER) (test 1 % tsrr=482) BASOPHILS RELATIVE PERCENT (BEAKER) (test 0 % owqt=223) NEUTROPHILS ABSOLUTE COUNT (BEAKER) (test 6.35 K/ L 1.56-6.13 xspr=374) LYMPHOCYTES ABSOLUTE COUNT (BEAKER) (test 1.35 K/ L 1.18-3.74 sgku=272) MONOCYTES ABSOLUTE COUNT (BEAKER) (test 0.80 K/ L 0.24-0.36 uann=038) EOSINOPHILS ABSOLUTE COUNT (BEAKER) (test 0.08 K/ L 0.04-0.36 ggot=267) BASOPHILS ABSOLUTE COUNT (BEAKER) (test 0.03 K/ L 0.01-0.08 vscb=104) IMMATURE GRANULOCYTES-RELATIVE PERCENT (BEAKER) 0 % 0-1 (test mtfs=0464) EEG AWAKE AND [id number] 23:06:00For STAT EEG- after 5 PM weekdays, weekends and holidays, page the on-call pneumatic systems operator Reason for exam:->seizure, AMSDATE OF TEST: 1/21/18DATE OF REPORT 12/16/17ACC: [id number]: [id number] time : 22:22Stop time: 22:43ICD-10: G93.40CPT Code: 35005 HISTORY: 82 yo F with history of [...] FACNSProfessor of NeurologyDirector, [facility] EpilepsyAkron Children'S HospitalerTri[facility] Neurophysiology Lab Electronically signed by: NABILA Foreman 12/16/2017 11:06 PMRAD, CHEST, 1 VIEW, NON [id number] 21:41: 00Reason for exam:->concern for PNAShould this [...] MDReport Verified Date/Time: 12/16/2017 21:41:51 Reading Location: [address] Reading Room [id number] 19:57:00 Test Item Value Reference Range Comments FERRITIN (BEAKER) (test sczs=345) 36 ng/mL 5-275 VITAMIN D, [id number] 19:57:00 Test Item Value Reference Range Comments VITAMIN D 25-OH (BEAKER) (test zdmr=6844) 8.2 ng/mL 6.6-49.9 Effective 09/05/2017: Reference Range ChangeNew: 6.6-49.9 ng/mL Previous: 13.0 -47.8 ng/mLRecommended Vitamin D Target Range: 30.0-40.0 ng/mLTSH/FREE T4 IF [id number] 19:57:00 Test Item Value Reference Range Comments THYROID STIMULATING HORMONE (BEAKER) (test 3.15 uIU/mL 0.35-4.94 txbl=917) VITAMIN B12 AND [id number] 19:57:00 Test Item Value Reference Range Comments VITAMIN B12 (BEAKER) (test rjnf=106) 376 pg/mL 213-816 FOLATE (BEAKER) (test ewoc=612) 15.8 ng/mL >=7.0 URINALYSIS W/ [id number] 19:28:00 Test Item Value Reference Range Comments COLOR (BEAKER) (test dgac=814) Yellow CLARITY (BEAKER) (test uhuf=674) Clear SPECIFIC GRAVITY UA (BEAKER) (test sjjn=846) 1.017 1.001-1.035 PH UA (BEAKER) (test meim=152) 5.5 5.0-8.0 PROTEIN UA (BEAKER) (test isjp=531) 50 mg/dL Negative GLUCOSE UA (BEAKER) (test cxcu=518) Negative Negative KETONES UA (BEAKER) (test rcen=237) 40 mg/dL Negative BILIRUBIN UA (BEAKER) (test rjch=953) Negative Negative BLOOD UA (BEAKER) (test gayx=889) Negative Negative NITRITE UA (BEAKER) (test mbjb=959) Negative Negative LEUKOCYTE ESTERASE UA (BEAKER) (test osmn=759) Moderate Negative UROBILINOGEN UA (BEAKER) (test wqrb=712) 0.2 mg/dL 0.2-1.0 RBC UA (BEAKER) (test ezbp=453) 1 /HPF WBC UA (BEAKER) (test mxnk=027) 55 /HPF BACTERIA (BEAKER) (test tjew=352) Occasional MUCUS (BEAKER) (test qvcn=1257) Many HYALINE CASTS (BEAKER) (test rizw=113) 10 /LPF SOURCE(BEAKER) (test qbwz=8344) Urine, [place] IRON, TIBC, % SAT. (WITHOUT FERRITIN)2017-12-16 19:21:00 Test Item Value Reference Range Comments IRON (BEAKER) (test vtam=815) 24 ug/dL 40-160 TOTAL IRON BINDING CAPACITY (BEAKER) (test 309 ug/dL 250-450 vpyg=310) IRON % SATURATION (2) (BEAKER) (test jjqk=2749) 8 % 20-55 BASIC METABOLIC [id number] 19:20:00 Test Item Value Reference Range Comments SODIUM (BEAKER) (test 141 meq/L 136-145 ukdk=495) POTASSIUM (BEAKER) (test 4.0 meq/L 3.5-5.1 Specimen moderately hugj=738) hemolyzed CHLORIDE (BEAKER) (test 102 meq/L 98-107 xkde=833) CO2 (BEAKER) (test 30 meq/L 22-29 igtk=451) BLOOD UREA NITROGEN 12 mg/dL 7-21 (BEAKER) (test trky=707) CREATININE (BEAKER) (test 0.66 mg/dL 0.57-1.25 Specimen moderately rhot=267) hemolyzed GLUCOSE RANDOM (BEAKER) 102 mg/dL 70-105 (test qiwn=022) CALCIUM (BEAKER) (test 8.3 mg/dL 8.4-10.2 eyqj=792) EGFR (BEAKER) (test 86 mL/min/1.73 sq m ESTIMATED GFR IS NOT hzcr=3004) ACCURATE CREATININE CLEARANCE IN PREDICTING GLOMERULAR FILTRATION RATE. ESTIMATED GFR IS NOT APPLICABLE FOR DIALYSIS PATIENTS. CBC W/PLT COUNT & AUTO [id number] 19:06:00 Test Item Value Reference Range Comments WHITE BLOOD CELL COUNT (BEAKER) (test xrxj=540) 8.2 K/ L 3.5-10.5 RED BLOOD CELL COUNT (BEAKER) (test rvgo=881) 4.05 M/ L 3.93-5.22 HEMOGLOBIN (BEAKER) (test aagq=215) 9.4 GM/DL 11.2-15.7 HEMATOCRIT (BEAKER) (test dqsx=653) 30.9 % 34.1-44.9 MEAN CORPUSCULAR VOLUME (BEAKER) (test mfqa=715) 76.3 fL 79.4-94.8 MEAN CORPUSCULAR HEMOGLOBIN (BEAKER) (test 23.2 pg 25.6-32.2 pzia=789) MEAN CORPUSCULAR HEMOGLOBIN CONC (BEAKER) (test 30.4 GM/DL 32.2-35.5 nlhv=084) RED CELL DISTRIBUTION WIDTH (BEAKER) (test 13.6 % 11.7-14.4 cuqm=015) PLATELET COUNT (BEAKER) (test xmzs=757) 301 K/CU MM 150-450 MEAN PLATELET VOLUME (BEAKER) (test equd=456) 8.7 fL 9.4-12.3 NUCLEATED RED BLOOD CELLS (BEAKER) (test 0 /100 WBC 0-0 jjux=765) NEUTROPHILS RELATIVE PERCENT (BEAKER) (test 78 % hmux=320) LYMPHOCYTES RELATIVE PERCENT (BEAKER) (test 13 % ozst=232) MONOCYTES RELATIVE PERCENT (BEAKER) (test 9 % zpda=929) EOSINOPHILS RELATIVE PERCENT (BEAKER) (test 1 % rfdq=239) BASOPHILS RELATIVE PERCENT (BEAKER) (test 0 % cryb=566) NEUTROPHILS ABSOLUTE COUNT (BEAKER) (test 6.35 K/ L 1.56-6.13 nzaa=048) LYMPHOCYTES ABSOLUTE COUNT (BEAKER) (test 1.06 K/ L 1.18-3.74 xdux=146) MONOCYTES ABSOLUTE COUNT (BEAKER) (test 0.70 K/ L 0.24-0.36 wbal=768) EOSINOPHILS ABSOLUTE COUNT (BEAKER) (test 0.04 K/ L 0.04-0.36 bbgq=840) BASOPHILS ABSOLUTE COUNT (BEAKER) (test 0.03 K/ L 0.01-0.08 bhnj=450) IMMATURE GRANULOCYTES-RELATIVE PERCENT (BEAKER) 0 % 0-1 (test nkth=5054)
--- OUTSIDE RECORDS SUMMARY | 2018-10-13 12:29 | XMS REPORT | Clinical Summary ---
:1935 Author Organization [facility] Address [address] [place] [address] Care Team Providers Name Role Phone Thang [...] Taken Blood Pressure 157/77 12/20/2017 11:34 AM VIDEO RENTAL CLERK Pulse 76 12/20/2017 11:34 AM VIDEO RENTAL CLERK Temperature 36.5 C (97.7 F) 12/20/2017 11:34 AM VIDEO RENTAL CLERK Respiratory Rate 18 12/20/2017 11:34 AM VIDEO RENTAL CLERK Oxygen Saturation 98% 12/20/2017 11:34 AM VIDEO RENTAL CLERK Inhaled Oxygen Concentration - - Weight 54 kg (119 lb) 12/20/2017 5:00 AM VIDEO RENTAL CLERK Height 157.5 cm (5' 2") 12/16/2017 5:25 PM VIDEO RENTAL CLERK Body Mass Index 21.77 12/20/2017 5:00 AM VIDEO RENTAL CLERK Plan of Treatment Not on file Procedures Procedure Name Priority Date/Time Associated Comments Diagnosis RHYTHM STRIP - SCAN 12/21/2017 2:41 PM VIDEO RENTAL CLERK MAGNESIUM Routine 12/19/2017 7:31 Results for this AM VIDEO RENTAL CLERK procedure are in the results section. BASIC METABOLIC PANEL STAT 12/19/2017 7:31 Results for this (7) AM VIDEO RENTAL CLERK procedure are in the results section. CBC W/PLT COUNT & STAT 12/19/2017 6:58 Results for this AUTO DIFFERENTIAL AM VIDEO RENTAL CLERK procedure are in the results section. CBC W/PLT COUNT & STAT 12/19/2017 6:58 Results for this AUTO DIFFERENTIAL AM VIDEO RENTAL CLERK procedure are in the results section. CBC W/PLT COUNT & Routine 12/18/2017 3:39 Results for this AUTO DIFFERENTIAL AM VIDEO RENTAL CLERK procedure are in the results section. MAGNESIUM STAT 12/18/2017 3:39 Results for this AM VIDEO RENTAL CLERK procedure are in the results section. CBC W/PLT COUNT & Routine 12/18/2017 3:39 Results for this AUTO DIFFERENTIAL AM VIDEO RENTAL CLERK procedure are in the results section. BASIC METABOLIC PANEL Routine 12/18/2017 3:39 Results for this (7) AM VIDEO RENTAL CLERK procedure are in the results section. EEG MONITORING WITH Routine 12/17/2017 7:00 Results for this VIDEO RECORDING EACH AM VIDEO RENTAL CLERK procedure are in 24 HOURS the results section. CBC W/PLT COUNT & Routine 12/17/2017 3:34 Results for this AUTO DIFFERENTIAL AM VIDEO RENTAL CLERK procedure are in the results section. CBC W/PLT COUNT & Routine 12/17/2017 3:34 Results for this AUTO DIFFERENTIAL AM VIDEO RENTAL CLERK procedure are in the results section. BASIC METABOLIC PANEL Routine 12/17/2017 3:34 Results for this (7) AM VIDEO RENTAL CLERK procedure are in the results section. EEG AWAKE AND DROWSY STAT 12/16/2017 10:33 Results for this PM VIDEO RENTAL CLERK procedure are in the results section. XR CHEST 1 VIEW Routine 12/16/2017 9:15 Results for this PORTABLE/BEDSIDE PM VIDEO RENTAL CLERK procedure are in the results section. URINE CULTURE Routine 12/16/2017 8:45 Results for this PM VIDEO RENTAL CLERK procedure are in the results section. CBC W/PLT COUNT & Routine 12/16/2017 6:50 Results for this AUTO DIFFERENTIAL PM VIDEO RENTAL CLERK procedure are in the results section. CBC W/PLT COUNT & Routine 12/16/2017 6:50 Results for this AUTO DIFFERENTIAL PM VIDEO RENTAL CLERK procedure are in the results section. VITAMIN D, 25-HYDROXY Routine 12/16/2017 6:50 Results for this PM VIDEO RENTAL CLERK procedure are in the results section. VITAMIN B12 AND Routine 12/16/2017 6:50 Results for this FOLATE PM VIDEO RENTAL CLERK procedure are in the results section. FERRITIN Routine 12/16/2017 6:50 Results for this PM VIDEO RENTAL CLERK procedure are in the results section. IRON, TIBC, % SAT. Routine 12/16/2017 6:50 Results for this (WITHOUT FERRITIN) PM VIDEO RENTAL CLERK procedure are in the results section. TSH/FREE T4 IF Routine 12/16/2017 6:50 Results for this INDICATED PM VIDEO RENTAL CLERK procedure are in the results section. BASIC METABOLIC PANEL Routine 12/16/2017 6:50 Results for this (7) PM VIDEO RENTAL CLERK procedure are in the results section. URINALYSIS W/ Routine 12/16/2017 6:50 Results for this MICROSCOPIC PM VIDEO RENTAL CLERK procedure are in the results section. BLOOD CULTURE Routine 12/16/2017 6:50 Results for this PM VIDEO RENTAL CLERK procedure are in the results section. after 10/12/2017 Results RHYTHM STRIP - SCAN (12/21/2017 2:41 PM VIDEO RENTAL CLERK) Narrative Performed At Magnesium (12/19/2017 7:31 AM VIDEO RENTAL CLERK)Only the most recent of2 resultswithin the time period is included. Magnesium 2.2Comment: Specimen slightly 1.6 - 2.6 mg/dL [facility] Specimen Blood - Line, Venous Performing Organization Address City/[facility] Phone Number [address] [address] [phone] CENTER Basic Metabolic Panel (12/19/2017 7:31 AM VIDEO RENTAL CLERK)Only the most recent of4 resultswithin the time period is included. Sodium 139 136 - 145 meq/L [facility] Potassium 4.0Comment: Specimen slightly 3.5 - 5.1 meq/L [facility] Chloride 104 98 - 107 meq/L [facility] CO2 27 22 - 29 meq/L [facility] BUN 7 7 - 21 mg/dL [facility] Creatinine 0.60Comment: Specimen 0.57 - 1.25 mg/dL [facility] Glucose 113 (H) 70 - 105 mg/dL [facility] Calcium 8.3 (L) 8.4 - 10.2 mg/dL [facility] EGFR 95Comment: ESTIMATED GFR IS mL/min/1.[address] [facility] NOT ACCURATE CREATININE [facility] CLEARANCE IN PREDICTING GLOMERULAR FILTRATION RATE. ESTIMATED GFR IS NOT APPLICABLE FOR DIALYSIS PATIENTS. Specimen Blood - Line, Venous Performing Organization Address City/[facility] Cent[facility] Phone Number [address] [address] [place] CBC with platelet count + automated diff (12/19/2017 6:58 AM VIDEO RENTAL CLERK)Only the most recent of4 resultswithin the time period is included. WBC 7.5 3.5 - 10.5 K/L [facility] RBC 4.30 3.93 - 5.22 M/L [facility] Hemoglobin 10.1 (L) 11.2 - 15.7 GM/DL [facility] Hematocrit 32.6 (L) 34.1 - 44.9 % [facility] MCV 75.8 (L) 79.4 - 94.8 fL [facility] MCH 23.5 (L) 25.6 - 32.2 pg [facility] MCHC 31.0 (L) 32.2 - 35.5 GM/DL [facility] RDW 14.1 11.7 - 14.4 % [facility] Platelets 289 150 - 450 K/CU MM [facility] MPV 9.1 (L) 9.4 - 12.3 fL [facility] nRBC 0 0 - 0 /100 WBC [facility] % Neutros 73 % [facility] % Lymphs 15 % [facility] % Monos 9 % [facility] % Eos 2 % [facility] % Baso 0 % [facility] # Neutros 5.50 1.56 - 6.13 K/L [facility] # Lymphs 1.12 (L) 1.18 - 3.74 K/L [facility] # Monos 0.67 (H) 0.24 - 0.36 K/L [facility] # Eos 0.16 0.04 - 0.36 K/L [facility] # Baso 0.03 0.01 - 0.08 K/L [facility] Immature Granulocytes-Relative 0 0 - 1 % [facility] Specimen Blood - Line, Venous Performing Organization Address City/State/Zipcode Phone Number [facility] [address] [place] [address] [phone] CENTER EEG monitoring with video recording each 24 hours (12/17/2017 7:00 AM VIDEO RENTAL CLERK) Narrative Performed At Addendum Begins GE RIS [...] to 12/17/2017 DATE OF REPORT 12/16/17 ACC: [id number] Start time: 22:43 Stop time: 06:45 ICD-10: G93.40 CPT Code: 80891 HISTORY: 82 yo F with history of chronic pain, chronic Lozano, osteoporosis, HTN, who was transferred from [facility] for AMS and seizures. [...] External Ris In - 12/17/2017 4:19 PM VIDEO RENTAL CLERK Addendum Begins Addendum: Start time: 0645 Stop [...] to 12/17/2017 DATE OF REPORT 12/16/17 ACC: [id number] Start time: 22:43 Stop time: 06:45 ICD-10: G93.40 CPT Code: 60812 HISTORY: 82 yo F with history of [...] Attending Performing Organization Address City/State/Zipcode Phone Number [facility] EEG AWAKE AND DROWSY (12/16/2017 10:33 PM VIDEO RENTAL CLERK) Narrative Performed At DATE OF TEST: 12/16/17 [facility] DATE OF REPORT 12/16/17 ACC: [id number] Start time: 22:22 Stop time: 22:43 ICD-10: G93.40 CPT Code: 36734 HISTORY: 82 yo F with history of [...] MD Epilepsy Fellow Nabila Sanchez M.D., [facility] Professor of Neurology Director, [facility] Epilepsy Center Head, [facility] Neurophysiology Lab Procedure Note Interface, External Ris In - 12/16/2017 11:06 PM VIDEO RENTAL CLERK DATE OF TEST: 12/16/17 DATE OF REPORT 12/16/17 ACC: [id number] Start time: 22:22 Stop time: 22:43 ICD-10: G93.40 CPT Code: 85475 HISTORY: 82 yo F with history of chronic pain, chronic Lozano, osteoporosis, HTN, who was transferred from [facility] for AMS and seizures. [...] MD Epilepsy Fellow Nabila Sanchez M.D., [facility] Professor of Neurology Director, [facility] Epilepsy [place] Head, [facility] Neurophysiology Lab Performing Organization Address City/State/Zipcode Phone Number [facility] XR chest 1 view portable / bedside (12/16/2017 9:15 PM VIDEO RENTAL CLERK) Narrative Performed At FINAL REPORT [facility] INDICATION: concern for PNA COMPARISON: None TECHNIQUE: Single frontal view of the chest. FINDINGS: Limited by severe scoliosis and contractures. Lungs and pleura: Clear lungs. No effusion. Heart and mediastinum: Normal heart size. Unremarkable mediastinal contours. Osseous structures: No acute abnormality. Other: None. IMPRESSION: No acute intrathoracic abnormality. Signed: JR Lamb Robert MD Report Verified Date/Time:12/16/2017 21:41:51 Reading Location: [address] Reading Room Procedure Note Interface, External Ris In - 12/16/2017 9:44 PM VIDEO RENTAL CLERK FINAL REPORT INDICATION: concern for PNA COMPARISON: None TECHNIQUE: Single frontal view of the chest. FINDINGS: Limited by severe scoliosis and contractures. Lungs and pleura: Clear lungs. No effusion. Heart and mediastinum: Normal heart size. Unremarkable mediastinal contours. Osseous structures: No acute abnormality. Other: None. IMPRESSION: No acute intrathoracic abnormality. Signed: JR Lamb Robert MD Report Verified Date/Time: 12/16/2017 21:41:51 Reading Location: [address] Reading Room Performing Organization Address City/State/Zipcode Phone Number GE RIS Urine culture (12/16/2017 8:45 PM VIDEO RENTAL CLERK) Result [facility] Result CITROBACTER BRAAKII (A) [facility] Specimen Urine - Urine, Catalan Organism [...] + Sulfamethoxazole >=320: Resistant Performing Organization Address [facility] Phone Number [address] [address] [phone] CENTER Vitamin B12 and Folate (12/16/2017 6:50 PM VIDEO RENTAL CLERK) Vitamin B12 376 213 - 816 pg/mL [facility] Folate 15.8 >=7.0 ng/mL [facility] Specimen Blood Performing Organization Address City/State/[facility] Cent[facility] Phone Number [address] [address] CENTER TSH/Free T4 If Indicated (12/16/2017 6:50 PM VIDEO RENTAL CLERK) TSH 3.15 0.35 - 4.94 uIU/mL [facility] Specimen Blood Performing Organization Address [facility] Cent[facility] Phone Number [address] [address] CENTER Iron, TIBC, % sat. (without ferritin) (12/16/2017 6:50 PM VIDEO RENTAL CLERK) Iron 24 (L) 40 - 160 ug/dL [facility] TIBC 309 250 - 450 ug/dL [facility] Iron % Saturation 8 (L) 20 - 55 % [facility] Specimen Blood Performing Organization Address [facility] Phone Number [address] [address] [phone] [place] Vitamin D, 25-Hydroxy (12/16/2017 6:50 PM VIDEO RENTAL CLERK) Vitamin D 25-Hydroxy 8.2 6.6 - 49.9 ng/mL [facility] Specimen Blood Narrative Performed At [facility] Effective 09/05/2017: Reference Range Change New: 6.6-49.9 ng/mL Previous: 13.0-47.8 ng/mL Recommended Vitamin D Target Range: 30.0-40.0 ng/mL Performing Organization Address [facility] Phone Number [address] [address] [phone] [place] Blood culture (12/16/2017 6:50 PM VIDEO RENTAL CLERK) Result No growth in 5 days [facility] Specimen Blood - Arm, Right Performing Organization Address [facility] Phone Number [address] [address] [place] Urinalysis w/ Microscopic (12/16/2017 6:50 PM VIDEO RENTAL CLERK) Color, UA Yellow [facility] Clarity, UA Clear [facility] Specific [place], UA 1.017 1.001 - 1.035 [facility] pH, UA 5.5 5.0 - 8.0 [facility] Protein, UA 50 mg/dL (A) Negative [facility] Glucose, UA Negative Negative [facility] Ketones, UA 40 mg/dL (A) Negative [facility] Bilirubin, UA Negative Negative [facility] Blood, UA Negative Negative [facility] Nitrite, UA Negative Negative [facility] Leukocytes, UA Moderate (A) Negative [facility] Urobilinogen, UA 0.2 0.2 - 1.0 mg/dL [facility] RBC, UA 1 /HPF [facility] WBC, UA 55 /HPF [facility] Bacteria, UA Occasional [facility] Mucus Many [facility] Hyaline Casts, UA 10 /LPF [facility] Specimen Source Urine, Catalan [facility] Specimen Urine - Urine, Catalan Performing Organization Address City/[facility]/Zipcode Phone Number [facility] [address] [place] [address] [phone] [place] Ferritin (12/16/2017 6:50 PM VIDEO RENTAL CLERK) Ferritin 36 5 - 275 ng/mL [facility] Specimen Blood Performing Organization Address City/[facility]/Zipcode Phone Number [facility] [address] [place] [address] CENTER after 10/12/2017 Insurance Payer Benefit Plan / Group Subscriber ID Type Phone Address MEDICARE MEDICARE A B xxxxxxxxxx Medicare AETNA - MGD CARE AETNA INDEMNITY NON CONTR xxxxxxxxx Comm Advance Directives For more information, please contact:[address] [phone] Code Status Date Activated Date Inactivated Comments Full Code 12/16/2017 5:47 PM 12/16/2017 8:51 PM This code status was determined by: Patient
[2018-10-13] MEDS ORDERED: MEPERIDINE HCL 50 MG/ML AMP ONE (13:00)
[2018-10-13] MEDS ORDERED: PROMETHAZINE 25 MG/ML VIAL ONE (13:00)
--- NOTE | 2018-10-13 13:02 | EDPHYS ---
Physician Documentation [facility] Name: Gloria Armenta Age: 83 yrs Sex: Female : 1935 Arrival Date: 10/13/2018 Time: 12:30 Bed 23 Private MD: Thang Montero ED Physician Jus Gandara HPI: 10/13 12:53 This 83 yrs old Female presents to ER via Wheelchair with complaints of kb Headache. 12:53 The patient complains of pain to the top of head. The patient describes the headache as kb constant. Onset: The symptoms/episode began/occurred last night, at 21:00. Associated signs and symptoms: Pertinent positives: nausea, vomiting. Severity of symptoms: At its worst the pain was moderate, in the emergency department the pain is unchanged. Headache History: The patient has had previous headaches and this one is similar to previous episodes. The symptoms are alleviated by nothing. the symptoms are aggravated by nothing. The patient has experienced similar episodes in the past, chronically. The patient has been recently seen at the [facility] Emergency Department, yesterday, for similar complaints was given a prescription for pain medications. Historical: - Allergies: 12:39 Aspirin; la1 12:39 Cefaclor; la1 12:39 Celecoxib; la1 12:39 Cephalexin; la1 12:39 CEPHALOSPORINS; la1 12:39 Chlorpromazine; la1 12:39 chlorpromazine HCl; la1 12:39 esomeprazole mag; la1 12:39 Ketorolac; la1 12:39 ketorolac tromethamine; la1 12:39 Morphine; la1 12:39 prochlorperazine Edisylate; la1 12:39 Prochlorperazine Maleate; la1 12:39 Rofecoxib; la1 12:39 Sulfa (Sulfonamide Antibiotics); la1 12:39 SUMATRIPTAN; la1 12:39 Sumatriptan Succinate; la1 - PMHx: 12:39 Chronic headaches; Chronic pain; Hypertension; la1 - Immunization history:: Adult Immunizations up to date. - Social history:: Smoking status: Patient/guardian denies using tobacco. - Ebola Screening: : No symptoms or risks identified at this time. ROS: 12:51 Constitutional: Negative for fever, chills, and weight loss, Eyes: Negative for injury, kb pain, redness, and discharge, ENT: Negative for injury, pain, and discharge, Neck: Negative for injury, pain, and swelling, Cardiovascular: Negative for chest pain, palpitations, and edema, Respiratory: Negative for shortness of breath, cough, wheezing, and pleuritic chest pain, MS/Extremity: Negative for injury and deformity, Skin: Negative for injury, rash, and discoloration. 12:51 Abdomen/GI: Positive for nausea and vomiting, Negative for abdominal pain, diarrhea, constipation, abdominal cramps, abdominal distension, anorexia. 12:51 Neuro: Positive for headache, Negative for altered mental status, dizziness, gait disturbance, hearing loss, loss of consciousness, numbness, seizure activity, speech changes, syncope, near syncope, tingling, tinnitus, tremor, visual changes, weakness. Exam: 12:52 Constitutional: This is a well developed, well nourished patient who is awake, alert, kb and in no acute distress. Head/Face: Normocephalic, atraumatic. Eyes: Pupils equal round and reactive to light, extra-ocular motions intact. Lids and lashes normal. Conjunctiva and sclera are non-icteric and not injected. Cornea within normal limits. Periorbital areas with no swelling, redness, or edema. ENT: Nares patent. No nasal discharge, no septal abnormalities noted. Tympanic membranes are normal and external auditory canals are clear. Oropharynx with no redness, swelling, or masses, exudates, or evidence of obstruction, uvula midline. Mucous membranes moist. Neck: Trachea midline, no thyromegaly or masses palpated, and no cervical lymphadenopathy. Supple, full range of motion without nuchal rigidity, or vertebral point tenderness. No Meningismus. Chest/axilla: Normal chest wall appearance and motion. Nontender with no deformity. No lesions are appreciated. Cardiovascular: Regular rate and rhythm with a normal S1 and S2. No gallops, murmurs, or rubs. Normal PMI, no JVD. No pulse deficits. Respiratory: Lungs have equal breath sounds bilaterally, clear to auscultation and percussion. No rales, rhonchi or wheezes noted. No increased work of breathing, no retractions or nasal flaring. Abdomen/GI: Soft, non-tender, with normal bowel sounds. No distension or tympany. No guarding or rebound. No evidence of tenderness throughout. Skin: Warm, dry with normal turgor. Normal color with no rashes, no lesions, and no evidence of cellulitis. MS/ Extremity: Pulses equal, no cyanosis. Neurovascular intact. Full, normal range of motion. Neuro: Awake and alert, GCS 15, oriented to person, place, time, and situation. Cranial nerves II-XII grossly intact. Motor strength 5/5 in all extremities. Sensory grossly intact. Cerebellar exam normal. Normal gait. Vital Signs: 12:39 BP 180 / 100; Pulse 91; Resp 16; Temp 98.3; Pulse Ox 98% on R/A; la1 13:09 BP 164 / 95; Pulse 90; Resp 16; Pulse Ox 99% on R/A; kr2 Lindsey Coma Score: 12:52 Eye Response: spontaneous(4). Verbal Response: oriented(5). Motor Response: obeys kb commands(6). Total: 15. MDM: 12:45 Patient medically screened. kb 12:52 Data reviewed: vital signs, nurses notes. Data interpreted: Pulse oximetry: on room air kb is 98 %. Interpretation: normal. Counseling: I had a detailed discussion with the patient and/or guardian regarding: the historical points, exam findings, and any diagnostic results supporting the discharge/admit diagnosis, the need for outpatient follow up, a family practitioner, a neurologist, to return to the emergency department if symptoms worsen or persist or if there are any questions or concerns that arise at home. Administered Medications: 12:59 Drug: Demerol 50 mg Route: IM; Site: left gluteus; kr2 13:08 Follow up: Response: No adverse reaction; Pain is decreased kr2 12:59 Drug: Phenergan 25 mg Route: IM; Site: right gluteus; kr2 13:08 Follow up: Response: No adverse reaction; Pain is decreased kr2 Disposition: 10/14 11:12 Co-signature as Attending Physician, Jus Gandara MD. Disposition: 10/13/18 13:01 Discharged to Home. Impression: Migraine. - Condition is Stable. - Discharge Instructions: Migraine Headache, [id number]. - Medication Reconciliation Form, Thank You Letter, Antibiotic Education, Prescription Opioid Use form. - Follow up: Emergency Department; When: As needed; Reason: Worsening of condition. Follow up: Private Physician; When: 2 - 3 days; Reason: Recheck today's complaints, Continuance of care, Re-evaluation by your physician. Signatures: Antoinette Perry, Ghassan Abreu RN RN la1 Jus Gandara MD MD gs Sayda Young RN RN kr2 Corrections: (The following items were deleted from the chart) 10/13 13:13 13:01 10/13/2018 13:01 Discharged to Home. Impression: Migraine. Condition is Stable. kr2 Forms are Medication Reconciliation Form, Thank You Letter, Antibiotic Education, Prescription Opioid Use. Follow up: Emergency Department; When: As needed; Reason: Worsening of condition. Follow up: Private Physician; When: 2 - 3 days; Reason: Recheck today's complaints, Continuance of care, Re-evaluation by your physician. kb
--- NOTE | 2018-10-13 13:02 | ER ---
Nurse's Notes [facility] Name: Gloria Armenta Age: 83 yrs Sex: Female : 1935 Arrival Date: 10/13/2018 Time: 12:30 Bed 23 Private MD: Thang Montero Diagnosis: Migraine Presentation: 10/13 12:38 Presenting complaint: Patient states: I have a migraine and I was here last night and la1 they gave me tramadol and its not helping. The best thing for my headaches is demerol/phenergan about 50/50 or a little more. Usually they just give me a little shot though or sometimes a little more. Transition of care: patient was not received from another setting of care. Onset of symptoms was October 13, 2018. Risk Assessment: Do you want to hurt yourself or someone else? Patient reports no desire to harm self or others. Initial Sepsis Screen: Does the patient meet any 2 criteria? No. Patient's initial sepsis screen is negative. Does the patient have a suspected source of infection? No. Patient's initial sepsis screen is negative. Care prior to arrival: None. 12:38 Method Of Arrival: Wheelchair la1 12:38 Acuity: AURELIO 4 la1 Triage Assessment: 13:00 Headache History: The patient has had previous headaches and this one is similar to kr2 previous episodes. General: Appears in no apparent distress. uncomfortable, Behavior is calm, cooperative, appropriate for age. Pain: Pain began 1 day ago. Also complains of nausea. Historical: - Allergies: 12:39 Aspirin; la1 12:39 Cefaclor; la1 12:39 Celecoxib; la1 12:39 Cephalexin; la1 12:39 CEPHALOSPORINS; la1 12:39 Chlorpromazine; la1 12:39 chlorpromazine HCl; la1 12:39 esomeprazole mag; la1 12:39 Ketorolac; la1 12:39 ketorolac tromethamine; la1 12:39 Morphine; la1 12:39 prochlorperazine Edisylate; la1 12:39 Prochlorperazine Maleate; la1 12:39 Rofecoxib; la1 12:39 Sulfa (Sulfonamide Antibiotics); la1 12:39 SUMATRIPTAN; la1 12:39 Sumatriptan Succinate; la1 - PMHx: 12:39 Chronic headaches; Chronic pain; Hypertension; la1 - Immunization history:: Adult Immunizations up to date. - Social history:: Smoking status: Patient/guardian denies using tobacco. - Ebola Screening: : No symptoms or risks identified at this time. Screenin:00 Abuse screen: Denies threats or abuse. Denies injuries from another. Nutritional kr2 screening: No deficits noted. Tuberculosis screening: No symptoms or risk factors identified. Fall Risk Ambulatory Aid- Crutches/Cane/Walker (15 pts). Assessment: 13:00 General: Appears in no apparent distress. uncomfortable, Behavior is calm, cooperative, kr2 appropriate for age. Pain: Complains of pain in top of head Pain currently is 10 out of 10 on a pain scale. Quality of pain is described as aching, throbbing, Is continuous, Alleviated by nothing. Neuro: Level of Consciousness is awake, alert, obeys commands, Oriented to person, place, time, situation, Appropriate for age Production Gear Cutter are equal bilaterally Moves all extremities. Gait is unsteady, Speech is normal, Facial symmetry appears normal, Pupils are PERRLA, Intact. Cardiovascular: Patient's skin is warm and dry. Respiratory: Airway is patent Respiratory effort is even, unlabored, Respiratory pattern is regular, symmetrical. Vital Signs: 12:39 BP 180 / 100; Pulse 91; Resp 16; Temp 98.3; Pulse Ox 98% on R/A; la1 13:09 BP 164 / 95; Pulse 90; Resp 16; Pulse Ox 99% on R/A; kr2 [place] Coma Score: 12:52 Eye Response: spontaneous(4). Verbal Response: oriented(5). Motor Response: obeys kb commands(6). Total: 15. ED Course: 12:30 Patient arrived in ED. mr 12:30 Thang Montero DO is Private Physician. mr 12:39 Triage completed. la1 12:40 Arm band placed on left wrist. la1 12:45 Antoinette Perry FNP-C [facility] kb 12:45 Jus Gandara MD is Attending Physician. kb 12:55 Sayda Young RN is Primary Nurse. kr2 13:00 Patient has correct armband on for positive identification. Bed in low position. Call kr2 light in reach. Side rails up X 1. Pulse ox on. NIBP on. Door closed. Head of bed elevated. 13:12 No provider procedures requiring assistance completed. Patient did not have IV access kr2 during this emergency room visit. Administered Medications: 12:59 Drug: Demerol 50 mg Route: IM; Site: left gluteus; kr2 13:08 Follow up: Response: No adverse reaction; Pain is decreased kr2 12:59 Drug: Phenergan 25 mg Route: IM; Site: right gluteus; kr2 13:08 Follow up: Response: No adverse reaction; Pain is decreased kr2 Outcome: 13:01 Discharge ordered by MD. ching 13:12 Discharged to home via wheelchair, with family. kr2 13:12 Condition: good 13:12 Discharge instructions given to patient, Instructed on discharge instructions, follow up and referral plans. Demonstrated understanding of instructions, follow-up care. 13:13 Patient left the ED. kr2 Signatures: Antoinette Perry, CONSUMER INSIGHT MANAGER-C CONSUMER INSIGHT MANAGER-Hao WorthingtonaLisandra Lee RN RN la1 Sayda Young RN RN kr2 Corrections: (The following items were deleted from the chart) 12:52 12:52 BP 144 / 85; raissa haji
[2018-10-13 13:41] VITALS: TEMP 98.3
[2018-10-13 13:42] VITALS: BP 164/95; O2SAT 99
== END 2018-10-13 13:13 | disposition home or self-care (01) ==
LOC: ER 12:25
DX: G43.909 Migraine, unspecified, not intractable, without status migrainosus (principal)
CPT/HCPCS: 96372; 99283; J2175; J2550

== ENCOUNTER 2018-12-18 10:18 | Emergency (ER) | payer OTHER ==
[2018-12-18] MEDS ORDERED: NALOXONE HCL 2 MG/2 ML VIAL IM ONE (10:19)
[2018-12-18] MEDS ORDERED: VECURONIUM 10 MG/VIAL IV ONE (10:19)
[2018-12-18] MEDS ORDERED: WATER FOR INJ,STERILE 10 ML IV ONE (10:19)
[2018-12-18] MEDS ORDERED: LIDOCAINE 2% MPF 5 ML VIAL IV ONE (10:19)
--- OUTSIDE RECORDS SUMMARY | 2018-12-18 10:21 | XMS REPORT ---
:1935 [facility] [address] [place] [address] [address] [place] [address] Care Team Providers Name Role Phone NICHOLE PEREZ Unavailable Unavailable Problems This patient has no known problems. Allergies, Adverse Reactions, Alerts This patient has no known allergies or adverse reactions. Medications This patient has no known medications. Results Test Description Test Time Test Comments Text Results Atomic Results Result Comments BLOOD CULTURE 2017-12-22 05:01:00 Test Item Value Reference Range Comments CULTURE (BEAKER) (test ddch=6805) No growth in 5 days [id number] 11:31:00 Test Item Value Reference Range Comments MAGNESIUM (BEAKER) (test 2.2 mg/dL 1.6-2.6 Specimen slightly hemolyzed bwna=541) BASIC METABOLIC [id number] 11:31:00 Test Item Value Reference Range Comments SODIUM (BEAKER) (test 139 meq/L 136-145 juxb=109) POTASSIUM (BEAKER) (test 4.0 meq/L 3.5-5.1 Specimen slightly nwzq=188) hemolyzed CHLORIDE (BEAKER) (test 104 meq/L 98-107 qedr=406) CO2 (BEAKER) (test 27 meq/L 22-29 mtof=910) BLOOD UREA NITROGEN 7 mg/dL 7-21 (BEAKER) (test ozob=235) CREATININE (BEAKER) (test 0.60 mg/dL 0.57-1.25 Specimen slightly ptiw=630) hemolyzed GLUCOSE RANDOM (BEAKER) 113 mg/dL 70-105 (test lsuc=233) CALCIUM (BEAKER) (test 8.3 mg/dL 8.4-10.2 yesv=431) EGFR (BEAKER) (test 95 mL/min/1.73 sq m ESTIMATED GFR IS NOT mdzh=1635) ACCURATE CREATININE CLEARANCE IN PREDICTING GLOMERULAR FILTRATION RATE. ESTIMATED GFR IS NOT APPLICABLE FOR DIALYSIS PATIENTS. URINE [id number] 09:10:00 Test Item Value Reference Range Comments CULTURE (BEAKER) (test wlro=1263) Amikacin (test code=1) Aztreonam (test code=32) Cefepime (test code=51) Cefoxitin (test code=68) Ceftazidime (test code=27) Ceftriaxone (test code=52) Ertapenem (test code=38) Gentamicin (test code=18) Levofloxacin (test code=22) Meropenem (test code=34) Nitrofurantoin (test code=23) Piperacillin + Tazobactam (test code=29) Tetracycline (test code=2) Tobramycin (test code=25) Trimethoprim + Sulfamethoxazole (test code=47) CULTURE (BEAKER) (test kbqq=3134) >100,000 col/mL Citrobacter braakii CBC W/PLT COUNT & AUTO [id number] 07:05:00 Test Item Value Reference Range Comments WHITE BLOOD CELL COUNT (BEAKER) (test plft=719) 7.5 K/ L 3.5-10.5 RED BLOOD CELL COUNT (BEAKER) (test edpc=909) 4.30 M/ L 3.93-5.22 HEMOGLOBIN (BEAKER) (test rmle=295) 10.1 GM/DL 11.2-15.7 HEMATOCRIT (BEAKER) (test kasr=511) 32.6 % 34.1-44.9 MEAN CORPUSCULAR VOLUME (BEAKER) (test xekz=876) 75.8 fL 79.4-94.8 MEAN CORPUSCULAR HEMOGLOBIN (BEAKER) (test 23.5 pg 25.6-32.2 nmwr=945) MEAN CORPUSCULAR HEMOGLOBIN CONC (BEAKER) (test 31.0 GM/DL 32.2-35.5 vlxa=339) RED CELL DISTRIBUTION WIDTH (BEAKER) (test 14.1 % 11.7-14.4 iaoa=110) PLATELET COUNT (BEAKER) (test rnll=823) 289 K/CU MM 150-450 MEAN PLATELET VOLUME (BEAKER) (test rxhm=842) 9.1 fL 9.4-12.3 NUCLEATED RED BLOOD CELLS (BEAKER) (test 0 /100 WBC 0-0 grrr=437) NEUTROPHILS RELATIVE PERCENT (BEAKER) (test 73 % pzhw=526) LYMPHOCYTES RELATIVE PERCENT (BEAKER) (test 15 % icic=840) MONOCYTES RELATIVE PERCENT (BEAKER) (test 9 % lzkl=379) EOSINOPHILS RELATIVE PERCENT (BEAKER) (test 2 % drpg=577) BASOPHILS RELATIVE PERCENT (BEAKER) (test 0 % rkxk=422) NEUTROPHILS ABSOLUTE COUNT (BEAKER) (test 5.50 K/ L 1.56-6.13 xzco=640) LYMPHOCYTES ABSOLUTE COUNT (BEAKER) (test 1.12 K/ L 1.18-3.74 vtzw=773) MONOCYTES ABSOLUTE COUNT (BEAKER) (test 0.67 K/ L 0.24-0.36 gisi=665) EOSINOPHILS ABSOLUTE COUNT (BEAKER) (test 0.16 K/ L 0.04-0.36 xiaw=832) BASOPHILS ABSOLUTE COUNT (BEAKER) (test 0.03 K/ L 0.01-0.08 ppjj=555) IMMATURE GRANULOCYTES-RELATIVE PERCENT (BEAKER) 0 % 0-1 (test cgks=8242) [id number] 08:15:00 Test Item Value Reference Range Comments MAGNESIUM (BEAKER) (test nkrh=885) 1.7 mg/dL 1.6-2.6 CBC W/PLT COUNT & AUTO [id number] 04:24:00 Test Item Value Reference Range Comments WHITE BLOOD CELL COUNT (BEAKER) (test szir=140) 6.7 K/ L 3.5-10.5 RED BLOOD CELL COUNT (BEAKER) (test twoj=559) 3.69 M/ L 3.93-5.22 HEMOGLOBIN (BEAKER) (test ngux=409) 8.6 GM/DL 11.2-15.7 HEMATOCRIT (BEAKER) (test sgms=439) 28.5 % 34.1-44.9 MEAN CORPUSCULAR VOLUME (BEAKER) (test tngk=108) 77.2 fL 79.4-94.8 MEAN CORPUSCULAR HEMOGLOBIN (BEAKER) (test 23.3 pg 25.6-32.2 hpay=540) MEAN CORPUSCULAR HEMOGLOBIN CONC (BEAKER) (test 30.2 GM/DL 32.2-35.5 bzte=799) RED CELL DISTRIBUTION WIDTH (BEAKER) (test 13.7 % 11.7-14.4 avey=858) PLATELET COUNT (BEAKER) (test wjvi=337) 249 K/CU MM 150-450 MEAN PLATELET VOLUME (BEAKER) (test foqu=216) 8.8 fL 9.4-12.3 NUCLEATED RED BLOOD CELLS (BEAKER) (test 0 /100 WBC 0-0 gmpm=648) NEUTROPHILS RELATIVE PERCENT (BEAKER) (test 64 % ywfi=548) LYMPHOCYTES RELATIVE PERCENT (BEAKER) (test 21 % wzok=817) MONOCYTES RELATIVE PERCENT (BEAKER) (test 12 % jmhi=866) EOSINOPHILS RELATIVE PERCENT (BEAKER) (test 3 % ggnu=187) BASOPHILS RELATIVE PERCENT (BEAKER) (test 0 % kjfk=142) NEUTROPHILS ABSOLUTE COUNT (BEAKER) (test 4.23 K/ L 1.56-6.13 efrh=439) LYMPHOCYTES ABSOLUTE COUNT (BEAKER) (test 1.39 K/ L 1.18-3.74 ssjg=543) MONOCYTES ABSOLUTE COUNT (BEAKER) (test 0.80 K/ L 0.24-0.36 kwwz=394) EOSINOPHILS ABSOLUTE COUNT (BEAKER) (test 0.20 K/ L 0.04-0.36 ebop=800) BASOPHILS ABSOLUTE COUNT (BEAKER) (test 0.02 K/ L 0.01-0.08 axfb=242) IMMATURE GRANULOCYTES-RELATIVE PERCENT (BEAKER) 0 % 0-1 (test jzra=2945) BASIC METABOLIC [id number] 04:19:00 Test Item Value Reference Range Comments SODIUM (BEAKER) (test 139 meq/L 136-145 spnp=979) POTASSIUM (BEAKER) (test 3.1 meq/L 3.5-5.1 oyue=728) CHLORIDE (BEAKER) (test 103 meq/L 98-107 vwui=812) CO2 (BEAKER) (test 29 meq/L 22-29 prgt=775) BLOOD UREA NITROGEN 12 mg/dL 7-21 (BEAKER) (test mysz=948) CREATININE (BEAKER) (test 0.65 mg/dL 0.57-1.25 nhsh=564) GLUCOSE RANDOM (BEAKER) 91 mg/dL 70-105 (test yozh=206) CALCIUM (BEAKER) (test 8.1 mg/dL 8.4-10.2 bzst=770) EGFR (BEAKER) (test 87 mL/min/1.73 sq m ESTIMATED GFR IS NOT gumv=8079) ACCURATE CREATININE CLEARANCE IN PREDICTING GLOMERULAR FILTRATION RATE. ESTIMATED GFR IS NOT APPLICABLE FOR DIALYSIS PATIENTS. EEG MONITORING WITH VIDEO RECORDING EACH 24 [id number] 16:19:00Addendum BeginsAddendum:Start time: 0645Stop time: 1613 There [...] 12/16/2017 to DATE OF REPORT 12/16/17 ACC: [id number] Start time: 22: 43 Stop time: 06:45 ICD-10: G93.40 CPT Code: 21160 HISTORY: 82 yo F with history of [...] MS Epilepsy/Neurophysiology Attending [facility] METABOLIC [id number] 04:38:00 Test Item Value Reference Range Comments SODIUM (BEAKER) (test 142 meq/L 136-145 urmt=624) POTASSIUM (BEAKER) (test 3.0 meq/L 3.5-5.1 ltmt=671) CHLORIDE (BEAKER) (test 104 meq/L 98-107 fdoy=441) CO2 (BEAKER) (test 31 meq/L 22-29 pvwz=748) BLOOD UREA NITROGEN 13 mg/dL 7-21 (BEAKER) (test iigq=542) CREATININE (BEAKER) (test 0.64 mg/dL 0.57-1.25 qxwq=032) GLUCOSE RANDOM (BEAKER) 122 mg/dL 70-105 (test utnt=755) CALCIUM (BEAKER) (test 8.1 mg/dL 8.4-10.2 tvru=314) EGFR (BEAKER) (test 89 mL/min/1.73 sq m ESTIMATED GFR IS NOT ameh=4843) ACCURATE CREATININE CLEARANCE IN PREDICTING GLOMERULAR FILTRATION RATE. ESTIMATED GFR IS NOT APPLICABLE FOR DIALYSIS PATIENTS. CBC W/PLT COUNT & AUTO [id number] 04:03:00 Test Item Value Reference Range Comments WHITE BLOOD CELL COUNT (BEAKER) (test nxiy=032) 8.6 K/ L 3.5-10.5 RED BLOOD CELL COUNT (BEAKER) (test onzx=213) 3.94 M/ L 3.93-5.22 HEMOGLOBIN (BEAKER) (test jfup=885) 9.1 GM/DL 11.2-15.7 HEMATOCRIT (BEAKER) (test sqsw=961) 30.3 % 34.1-44.9 MEAN CORPUSCULAR VOLUME (BEAKER) (test iusy=632) 76.9 fL 79.4-94.8 MEAN CORPUSCULAR HEMOGLOBIN (BEAKER) (test 23.1 pg 25.6-32.2 ovww=620) MEAN CORPUSCULAR HEMOGLOBIN CONC (BEAKER) (test 30.0 GM/DL 32.2-35.5 kkya=814) RED CELL DISTRIBUTION WIDTH (BEAKER) (test 13.4 % 11.7-14.4 tszr=114) PLATELET COUNT (BEAKER) (test rzzd=265) 287 K/CU MM 150-450 MEAN PLATELET VOLUME (BEAKER) (test rwwb=430) 8.7 fL 9.4-12.3 NUCLEATED RED BLOOD CELLS (BEAKER) (test 0 /100 WBC 0-0 kery=126) NEUTROPHILS RELATIVE PERCENT (BEAKER) (test 74 % ysvz=711) LYMPHOCYTES RELATIVE PERCENT (BEAKER) (test 16 % nnlc=679) MONOCYTES RELATIVE PERCENT (BEAKER) (test 9 % dydc=770) EOSINOPHILS RELATIVE PERCENT (BEAKER) (test 1 % jyic=939) BASOPHILS RELATIVE PERCENT (BEAKER) (test 0 % wzxw=648) NEUTROPHILS ABSOLUTE COUNT (BEAKER) (test 6.35 K/ L 1.56-6.13 kiic=023) LYMPHOCYTES ABSOLUTE COUNT (BEAKER) (test 1.35 K/ L 1.18-3.74 mrjf=431) MONOCYTES ABSOLUTE COUNT (BEAKER) (test 0.80 K/ L 0.24-0.36 dwxy=579) EOSINOPHILS ABSOLUTE COUNT (BEAKER) (test 0.08 K/ L 0.04-0.36 mwbx=944) BASOPHILS ABSOLUTE COUNT (BEAKER) (test 0.03 K/ L 0.01-0.08 wtux=538) IMMATURE GRANULOCYTES-RELATIVE PERCENT (BEAKER) 0 % 0-1 (test bvvu=9116) EEG AWAKE AND [id number] 23:06:00For STAT EEG- after 5 PM weekdays, weekends and holidays, page the on-call exhaust and muffler fitter Reason for exam:->seizure, AMSDATE OF TEST: 1/21/18DATE OF REPORT 12/16/17ACC: [id number]: [id number] time : 22:22Stop time: 22:43ICD-10: G93.40CPT Code: 17942 HISTORY: 82 yo F with history of [...] Fellow Nabila Sanchez M.D., FACNSProfessor of NeurologyDirector, [facility] EpilepsyC[facility] Clinic [facility] CentererCl[facility] Neurophysiology Lab Electronically signed by: NABILA Foreman 12/16/2017 11:06 PMRAD, CHEST, 1 VIEW, NON [id number] 21:41: 00Reason for exam:->concern for PNAShould this [...] MDReport Verified Date/Time: 12/16/2017 21:41:51 Reading Location: [address] Reading Room [id number] 19:57:00 Test Item Value Reference Range Comments FERRITIN (BEAKER) (test txex=219) 36 ng/mL 5-275 VITAMIN D, [id number] 19:57:00 Test Item Value Reference Range Comments VITAMIN D 25-OH (BEAKER) (test dlrv=3822) 8.2 ng/mL 6.6-49.9 Effective 09/05/2017: Reference Range ChangeNew: 6.6-49.9 ng/mL Previous: 13.0 -47.8 ng/mLRecommended Vitamin D Target Range: 30.0-40.0 ng/mLTSH/FREE T4 IF [id number] 19:57:00 Test Item Value Reference Range Comments THYROID STIMULATING HORMONE (BEAKER) (test 3.15 uIU/mL 0.35-4.94 enqy=602) VITAMIN B12 AND [id number] 19:57:00 Test Item Value Reference Range Comments VITAMIN B12 (BEAKER) (test lysv=460) 376 pg/mL 213-816 FOLATE (BEAKER) (test oweq=102) 15.8 ng/mL >=7.0 URINALYSIS W/ [id number] 19:28:00 Test Item Value Reference Range Comments COLOR (BEAKER) (test gmyy=222) Yellow CLARITY (BEAKER) (test bnlo=122) Clear SPECIFIC GRAVITY UA (BEAKER) (test rxgr=465) 1.017 1.001-1.035 PH UA (BEAKER) (test deje=460) 5.5 5.0-8.0 PROTEIN UA (BEAKER) (test rrev=538) 50 mg/dL Negative GLUCOSE UA (BEAKER) (test kvyq=670) Negative Negative KETONES UA (BEAKER) (test uext=345) 40 mg/dL Negative BILIRUBIN UA (BEAKER) (test pfve=890) Negative Negative BLOOD UA (BEAKER) (test yfuv=479) Negative Negative NITRITE UA (BEAKER) (test cnxz=977) Negative Negative LEUKOCYTE ESTERASE UA (BEAKER) (test nwco=090) Moderate Negative UROBILINOGEN UA (BEAKER) (test pxvg=326) 0.2 mg/dL 0.2-1.0 RBC UA (BEAKER) (test lxwu=490) 1 /HPF WBC UA (BEAKER) (test rsao=746) 55 /HPF BACTERIA (BEAKER) (test qjnu=839) Occasional MUCUS (BEAKER) (test spiu=6720) Many HYALINE CASTS (BEAKER) (test qedd=166) 10 /LPF SOURCE(BEAKER) (test xjfu=2664) Urine, [place] IRON, TIBC, % SAT. (WITHOUT FERRITIN)2017-12-16 19:21:00 Test Item Value Reference Range Comments IRON (BEAKER) (test xkea=955) 24 ug/dL 40-160 TOTAL IRON BINDING CAPACITY (BEAKER) (test 309 ug/dL 250-450 jflw=456) IRON % SATURATION (2) (BEAKER) (test hlbk=5434) 8 % 20-55 BASIC METABOLIC [id number] 19:20:00 Test Item Value Reference Range Comments SODIUM (BEAKER) (test 141 meq/L 136-145 uwvm=694) POTASSIUM (BEAKER) (test 4.0 meq/L 3.5-5.1 Specimen moderately sczf=996) hemolyzed CHLORIDE (BEAKER) (test 102 meq/L 98-107 ghwf=666) CO2 (BEAKER) (test 30 meq/L 22-29 flob=490) BLOOD UREA NITROGEN 12 mg/dL 7-21 (BEAKER) (test zbjh=210) CREATININE (BEAKER) (test 0.66 mg/dL 0.57-1.25 Specimen moderately uaqx=251) hemolyzed GLUCOSE RANDOM (BEAKER) 102 mg/dL 70-105 (test yvee=071) CALCIUM (BEAKER) (test 8.3 mg/dL 8.4-10.2 zpme=101) EGFR (BEAKER) (test 86 mL/min/1.73 sq m ESTIMATED GFR IS NOT agfy=1218) ACCURATE CREATININE CLEARANCE IN PREDICTING GLOMERULAR FILTRATION RATE. ESTIMATED GFR IS NOT APPLICABLE FOR DIALYSIS PATIENTS. CBC W/PLT COUNT & AUTO [id number] 19:06:00 Test Item Value Reference Range Comments WHITE BLOOD CELL COUNT (BEAKER) (test jzsq=653) 8.2 K/ L 3.5-10.5 RED BLOOD CELL COUNT (BEAKER) (test ajbq=581) 4.05 M/ L 3.93-5.22 HEMOGLOBIN (BEAKER) (test yhlo=022) 9.4 GM/DL 11.2-15.7 HEMATOCRIT (BEAKER) (test hpyh=468) 30.9 % 34.1-44.9 MEAN CORPUSCULAR VOLUME (BEAKER) (test xapm=841) 76.3 fL 79.4-94.8 MEAN CORPUSCULAR HEMOGLOBIN (BEAKER) (test 23.2 pg 25.6-32.2 bvwb=629) MEAN CORPUSCULAR HEMOGLOBIN CONC (BEAKER) (test 30.4 GM/DL 32.2-35.5 iiwp=219) RED CELL DISTRIBUTION WIDTH (BEAKER) (test 13.6 % 11.7-14.4 znyq=273) PLATELET COUNT (BEAKER) (test xtbj=589) 301 K/CU MM 150-450 MEAN PLATELET VOLUME (BEAKER) (test asuu=217) 8.7 fL 9.4-12.3 NUCLEATED RED BLOOD CELLS (BEAKER) (test 0 /100 WBC 0-0 vglj=720) NEUTROPHILS RELATIVE PERCENT (BEAKER) (test 78 % bxkb=499) LYMPHOCYTES RELATIVE PERCENT (BEAKER) (test 13 % xnqr=108) MONOCYTES RELATIVE PERCENT (BEAKER) (test 9 % fgji=727) EOSINOPHILS RELATIVE PERCENT (BEAKER) (test 1 % sswg=511) BASOPHILS RELATIVE PERCENT (BEAKER) (test 0 % depa=454) NEUTROPHILS ABSOLUTE COUNT (BEAKER) (test 6.35 K/ L 1.56-6.13 gdya=178) LYMPHOCYTES ABSOLUTE COUNT (BEAKER) (test 1.06 K/ L 1.18-3.74 dbik=706) MONOCYTES ABSOLUTE COUNT (BEAKER) (test 0.70 K/ L 0.24-0.36 msru=081) EOSINOPHILS ABSOLUTE COUNT (BEAKER) (test 0.04 K/ L 0.04-0.36 rsas=044) BASOPHILS ABSOLUTE COUNT (BEAKER) (test 0.03 K/ L 0.01-0.08 hski=799) IMMATURE GRANULOCYTES-RELATIVE PERCENT (BEAKER) 0 % 0-1 (test fphd=7263)
--- OUTSIDE RECORDS SUMMARY | 2018-12-18 10:21 | XMS REPORT | Clinical Summary ---
:1935 Author Organization [facility] Address [address] [place] [address] Care Team Providers Name Role Phone Thang [...] MD Chantelle Acute cystitis without hematuria after 12/17/2017 Social History Tobacco Use Types Packs/Day Years Used Date Never Smoker Smokeless Tobacco: Never Used Sex Assigned at Date Recorded Not on file Job Start Date Occupation Industry Not on file Not on file Not on file Travel History Travel Start Travel End No recent travel history available. Last Filed Vital Signs Vital Sign Reading Time Taken Blood Pressure 157/77 12/20/2017 11:34 AM [employer] Pulse 76 12/20/2017 11:34 AM [employer] Temperature 36.5 C (97.7 F) 12/20/2017 11:34 AM [employer] Respiratory Rate 18 12/20/2017 11:34 AM [employer] Oxygen Saturation 98% 12/20/2017 11:34 AM [employer] Inhaled Oxygen Concentration - - Weight 54 kg (119 lb) 12/20/2017 5:00 AM [employer] Height - - Body Mass Index 21.77 12/20/2017 5:00 AM [employer] Plan of Treatment Not on file Procedures Procedure Name Priority Date/Time Associated Comments Diagnosis RHYTHM STRIP - SCAN 12/21/2017 2:41 PM [employer] MAGNESIUM Routine 12/19/2017 7:31 Results for this AM [employer] procedure are in the results section. BASIC METABOLIC PANEL STAT 12/19/2017 7:31 Results for this (7) AM [employer] procedure are in the results section. CBC W/PLT COUNT & STAT 12/19/2017 6:58 Results for this AUTO DIFFERENTIAL AM [employer] procedure are in the results section. CBC W/PLT COUNT & STAT 12/19/2017 6:58 Results for this AUTO DIFFERENTIAL AM [employer] procedure are in the results section. CBC W/PLT COUNT & Routine 12/18/2017 3:39 Results for this AUTO DIFFERENTIAL AM [employer] procedure are in the results section. MAGNESIUM STAT 12/18/2017 3:39 Results for this AM [employer] procedure are in the results section. CBC W/PLT COUNT & Routine 12/18/2017 3:39 Results for this AUTO DIFFERENTIAL AM [employer] procedure are in the results section. BASIC METABOLIC PANEL Routine 12/18/2017 3:39 Results for this (7) AM [employer] procedure are in the results section. EEG MONITORING WITH Routine 12/17/2017 7:00 Results for this VIDEO RECORDING EACH AM [employer] procedure are in 24 HOURS the results section. CBC W/PLT COUNT & Routine 12/17/2017 3:34 Results for this AUTO DIFFERENTIAL AM [employer] procedure are in the results section. CBC W/PLT COUNT & Routine 12/17/2017 3:34 Results for this AUTO DIFFERENTIAL AM [employer] procedure are in the results section. BASIC METABOLIC PANEL Routine 12/17/2017 3:34 Results for this (7) AM [employer] procedure are in the results section. after 12/17/2017 Results RHYTHM STRIP - SCAN (12/21/2017 2:41 PM [employer]) Narrative Performed At Magnesium (12/19/2017 7:31 AM [employer])Only the most recent of2 resultswithin the time period is included. Magnesium 2.2Comment: Specimen slightly 1.6 - 2.6 mg/dL [facility] Specimen Blood - Line, Venous Performing Organization Address City/State/Zipcode Phone Number [facility] [address] [place] [address] CENTER Basic Metabolic Panel (12/19/2017 7:31 AM [employer])Only the most recent of3 resultswithin the time period is included. Sodium 139 136 - 145 meq/L [facility] Potassium 4.0Comment: Specimen slightly 3.5 - 5.1 meq/L [facility] Chloride 104 98 - 107 meq/L [facility] CO2 27 22 - 29 meq/L [facility] BUN 7 7 - 21 mg/dL [facility] Creatinine 0.60Comment: Specimen 0.57 - 1.25 mg/dL [facility] Glucose 113 (H) 70 - 105 mg/dL [facility] Calcium 8.3 (L) 8.4 - 10.2 mg/dL [facility] EGFR 95Comment: ESTIMATED GFR IS mL/min/1.73 sq m [facility] NOT ACCURATE [facility] CLEARANCE IN PREDICTING GLOMERULAR FILTRATION RATE. ESTIMATED GFR IS NOT APPLICABLE FOR DIALYSIS PATIENTS. Specimen Blood - Line, Venous Performing Organization Address City/State/Zipcode Phone Number [facility] [address] [place] [address] [phone] CENTER CBC with platelet count + automated diff (12/19/2017 6:58 AM [employer])Only the most recent of3 resultswithin the time period is included. WBC 7.5 3.5 - 10.5 K/L [facility] RBC 4.30 3.93 - 5.22 M/L [facility] Hemoglobin 10.1 (L) 11.2 - 15.7 GM/DL [facility] Hematocrit 32.6 (L) 34.1 - 44.9 % [facility] MCV 75.8 (L) 79.4 - 94.8 fL [facility] MCH 23.5 (L) 25.6 - 32.2 pg [facility] MCHC 31.0 (L) 32.2 - 35.5 GM/DL [facility] RDW 14.1 11.7 - 14.4 % [facility] Platelets 289 150 - 450 K/CU MM [facility] MPV 9.1 (L) 9.4 - 12.3 fL [facility] nRBC 0 0 - 0 /100 WBC [facility] % Neutros 73 % [facility] % Lymphs 15 % [facility] % Monos 9 % [facility] % Eos 2 % [facility] % Baso 0 % [facility] # Neutros 5.50 1.56 - 6.13 K/L [facility] # Lymphs 1.12 (L) 1.18 - 3.74 K/L [facility] # Monos 0.67 (H) 0.24 - 0.36 K/L [facility] # Eos 0.16 0.04 - 0.36 K/L [facility] # Baso 0.03 0.01 - 0.08 K/L [facility] Immature Granulocytes-Relative 0 0 - 1 % [facility] Specimen Blood - Line, Venous Performing Organization Address City/State/Zipcode Phone Number [facility] [address] [place] [address] CENTER EEG monitoring with video recording each 24 hours (12/17/2017 7:00 AM [employer]) Narrative Performed At Addendum Begins GE RIS [...] to 12/17/2017 DATE OF REPORT 12/16/17 ACC: [id number] Start time: 22:43 Stop time: 06:45 ICD-10: G93.40 CPT Code: 93147 HISTORY: 82 yo F with history of [...] External Ris In - 12/17/2017 4:19 PM [employer] Addendum Begins Addendum: Start time: 0645 Stop [...] to 12/17/2017 DATE OF REPORT 12/16/17 ACC: [id number] Start time: 22:43 Stop time: 06:45 ICD-10: G93.40 CPT Code: 95849 HISTORY: 82 yo F with history of [...] Attending Performing Organization Address City/State/Zipcode Phone Number GE RIS after 12/17/2017 Insurance Payer Benefit Plan / Group Subscriber ID Type Phone Address MEDICARE MEDICARE A B xxxxxxxxxx Medicare AETNA - [employer] CARE AETNA INDEMNITY NON CONTR xxxxxxxxx Comm Advance Directives For more information, please contact:[address] [phone] Code Status Date Activated Date Inactivated Comments Full Code 12/16/2017 5:47 PM 12/16/2017 8:51 PM This code status was determined by: Patient
[2018-12-18] MEDS ORDERED: Nicardipine/NS 25 MG/250 ML KIT IV ONE ×2 (10:40→12:40)
[2018-12-18] MEDS ORDERED: RSI MEDICATION KIT IV ONE (10:42)
[2018-12-18] MEDS ORDERED: PROPOFOL 1,000 MG/100 ML VIAL IV ONE (10:42)
--- NOTE | 2018-12-18 10:42 | RAD REPORT ---
EXAM DESCRIPTION: CT - Ct Stroke Brain Wo Cont - 12/18/2018 10:31 am CLINICAL HISTORY: Transient alteration of awareness CLINICAL HISTORY: CT study October 01, 2018 TECHNIQUE: Axial 5 millimeter thick images of the head were obtained without IV contrast. All CT scans are performed using dose optimization technique as appropriate and may include automated exposure control or mA/KV adjustment according to patient size. FINDINGS: A 5 centimeter diameter intraparenchymal hematoma is present centered in the posterior lef t frontal lobe extending into the basal ganglia, thalamus and temporal lobe. There is a large compone nt of intraventricular hemorrhage in the lateral ventricles and fourth ventricle. Third ventricle con tains blood but is mostly effaced by the mass effect of the intraparenchymal hematoma. Patient has 13 mm of [id number] midline shift. Obstructive hydrocephalus is present. There is localized mass eff ect effacing sulci in the left frontal and temporal lobes. Visualized portions of the mastoid air cells, paranasal sinuses, and orbits are unremarkable. Findings telephoned to the referring physician 10:28 a.m.. IMPRESSION: Large 5 centimeter intraparenchymal hematoma centered in the posterior left frontal lobe , basal ganglia, thalamus and extension into the temporal lobe. Approximately 13 mm of [id number] midline shift. Large intraventricular hemorrhagic component with obstructive hydrocephalus.
[2018-12-18 10:43] LABS: Absolute Lymphocytes (CBC) 1.9 K/uL (0.7-4.9); Absolute Monocytes 0.6 K/uL (0.1-1.3); Absolute Neutrophil 4.7 K/uL (1.8-8.0); Basophils % 0.5 % (0-1.3); Eosinophils % 2.2 % (0-4.4); Hematocrit 38.9 % (36.0-45.0); Lymphocytes % 25.5 % (15.3-44.8); MPV 7.6 fL (7.6-11.3); Monocytes % 8.2 % (3.3-12.3)
[2018-12-18] MEDS ORDERED: MANNITOL 25% 150 ML IV ONE (10:47)
[2018-12-18 10:50] LABS: Protime INR 1.03
--- NOTE | 2018-12-18 11:08 | ER ---
Nurse's Notes [facility] Name: Gloria Armenta Age: 83 yrs Sex: Female : 1935 Arrival Date: 12/18/2018 Time: 10:20 Bed 3 Private MD: Diagnosis: Intracerebral hemorrhage Presentation: 12/18 10:15 Presenting complaint: EMS states: pt was with son this morning gathering her things to tw2 go see her in hospital in [facility], then he said she just went down, when we arrived she was alert but couldn't talk or stand when we got there, bgl 169. Transition of care: patient was not received from another setting of care. Onset of symptoms was December 18, 2018. Care prior to arrival: IV initiated. 20 GA, in the right wrist. 10:15 Method Of Arrival: EMS: [facility] tw2 10:15 Acuity: AURELIO 1 tw2 10:15 An acute neurological deficit is present. The patients blood glucose was checked before iw arriving to the hospital and was found to be normal. Risk Assessment: Do you want to hurt yourself or someone else? Unable to obtain. Initial Sepsis Screen: Does the patient meet any 2 criteria? No. Patient's initial sepsis screen is negative. Does the patient have a suspected source of infection? No. Patient's initial sepsis screen is negative. 10:15 Note pt has vomit down the front of shirt upon arrival. tw2 Triage Assessment: 10:15 The onset of the patients symptoms was December 18, 2018 at 09:15. General: Behavior is tw2 unresponsive. 11:40 Neuro: Level of Consciousness is unresponsive, Reports . tw2 Stroke Activation: Physician: Stroke Attending; Name: ; Notified At: ; Arrived At: Physician: Chief Stroke Resident; Name: ; Notified At: ; Arrived At: Physician: Stroke Resident; Name: ; Notified At: ; Arrived At: Physician: ED Attending; Name: Dr. Langley; Notified At: 10:15; Arrived At: 10:15 Physician: ED Resident; Name: ; Notified At: ; Arrived At: Historical: - Allergies: 11:14 Aspirin; iw 11:14 Cefaclor; iw 11:14 Celecoxib; iw 11:14 Cephalexin; iw 11:14 CEPHALOSPORINS; iw 11:14 Chlorpromazine; iw 11:14 chlorpromazine HCl; iw 11:14 esomeprazole mag; iw 11:14 Ketorolac; iw 11:14 ketorolac tromethamine; iw 11:14 Morphine; iw 11:14 prochlorperazine Edisylate; iw 11:14 Prochlorperazine Maleate; iw 11:14 Rofecoxib; iw 11:14 Sulfa (Sulfonamide Antibiotics); iw 11:14 SUMATRIPTAN; iw 11:14 Sumatriptan Succinate; iw - Home Meds: 11:21 amlodipine 5 mg tab once daily [Active]; hydroxyzine HCl 25 mg Oral tab 1 tab 3 times iw per day [Active]; gabapentin 300 mg oral cap 1 cap 3 times per day [Active]; levothyroxine 25 mcg tab 1 tab once daily [Active]; valsartan 80 mg oral tab 1 tab once daily [Active]; ondansetron HCl 4 mg Oral tab every 6 hours [Active]; furosemide 40 mg Oral tab 1 tab once daily [Active]; - PMHx: 11:14 Chronic headaches; Chronic pain; Hypertension; iw - Immunization history:: Adult Immunizations unknown. - Social history:: Smoking status: unknown. - Ebola Screening: : Patient denies travel to an Ebola-affected area in the 21 days before illness onset. - Hospitalizations: : No recent hospitalization is reported. Screenin:14 Abuse screen: Denies threats or abuse. Denies injuries from another. Nutritional iw screening: No deficits noted. Tuberculosis screening: No symptoms or risk factors identified. Fall Risk IV access (20 points). Assessment: 10:18 Reassessment: pt to CT at this time with NAT Dupree. tw2 10:29 Reassessment: pt back to ER bed 3, via Autumn mahoney RN, Dr. Langley at bedside to set iw up for intubation. 10:29 Patient has been NPO before screening. The patient is not alert and/or unable to follow iw commands. Bedside swallow screen discontinued. Patient kept NPO until cleared by Speech Therapy or Physician. The patient exhibits slurred or garbled speech. Provider notified of the indication for Speech Therapy consult. The patient is exhibiting difficulty speaking. The patient is exhibiting difficulty understanding words. The patient is unable to swallow own secretions without drooling or the need for suction. pt NPO pt NPO The patient failed the bedside swallow screening. The patient will be kept NPO until cleared by Speech Therapy or Physician. Provider notified of bedside swallow screening results: Bashir Langley MD. 10:29 T-PA (Activase) Screening: Contraindications: Intracranial hemorrhage and its risk iw factor and suspicion of subarachnoid bleed: Yes. 10:40 Reassessment: pt vomiting at this time, respiratory at bedside with suction, pt cleaned tw2 and prepared for intubation. 11:15 General: Appears ill. Pain: Unable to use pain scale. FLACC scale score is 3 out of 10. iw Patient is intubated. Neuro: Level of Consciousness is unresponsive, Oriented to none. Cardiovascular: Patient's skin is warm and dry. Pulses are all present. Respiratory: Airway via oral intubation Respiratory pattern is regular. GI: Abdomen is non-distended. 12:45 Reassessment: Report given to NAT Fernández at [facility]. Son's phone number [phone]. jl7 12:50 Reassessment: No changes from previously documented assessment. pt remains unresponsive tw2 at this time d/t IV sedation, pt remains intubated with assisted respirations at 18, no change in pts condition. Vital Signs: 10:32 BP 221 / 108; Pulse 86; Resp 18; Pulse Ox 97% on BVM; tw2 10:35 BP 239 / 106; Pulse 85; Resp 14 S; iw 10:35 Temp 97.7(TE); tw2 10:40 BP 184 / 82; Pulse 90; Resp 18; Pulse Ox 99% on BVM; tw2 10:42 Weight 54.43 kg; jl7 10:45 BP 216 / 117; Pulse 91; Resp 18 A; Pulse Ox 100% FiO2 ETT vent; tw2 10:48 BP 208 / 76; Pulse 109; tw2 11:00 BP 151 / 57; Pulse 93; Resp 18 A; Pulse Ox 100% on ETT vent; tw2 11:03 BP 173 / 68; Pulse 95; Resp 18 A; Pulse Ox 100% on ETT vent; iw 11:05 BP 177 / 66; Pulse 92; Resp 18; Pulse Ox 100% on ETT vent; tw2 11:10 BP 167 / 61; Pulse 88; Resp 18; Pulse Ox 100% on ETT vent; tw2 11:15 BP 161 / 60; Pulse 88; Resp 18; Pulse Ox 100% on ETT vent; tw2 11:20 BP 159 / 62; Pulse 87; Resp 18 A; Pulse Ox 100% on ETT vent; tw2 11:25 BP 157 / 62; Pulse 86; Resp 18; Pulse Ox 100% on ETT vent; tw2 11:30 BP 172 / 56; Pulse 86; Resp 18; Pulse Ox 100% on ETT vent; tw2 11:35 BP 180 / 66; Pulse 107; Resp 18; Pulse Ox 100% on ETT vent; tw2 11:40 BP 168 / 58; Pulse 94; Resp 18; Pulse Ox 100% on ETT vent; tw2 11:45 BP 164 / 60; Pulse 91; Resp 18; Pulse Ox 100% on ETT vent; tw2 11:50 BP 165 / 62; Pulse 93; Resp 18; Pulse Ox 100% on ETT vent; tw2 11:55 BP 158 / 67; Pulse 100; Resp 18; Pulse Ox 100% on ETT vent; tw2 12:00 BP 169 / 60; Pulse 42; Resp 18; Pulse Ox 100% on ETT vent; tw2 12:05 BP 169 / 79; Pulse 119; Resp 18; Pulse Ox 100% on ETT vent; tw2 12:10 BP 164 / 61; Pulse 99; Resp 18; Pulse Ox 100% on ETT vent; tw2 12:15 BP 157 / 61; Pulse 96; Resp 18; Pulse Ox 100% on ETT vent; tw2 12:20 BP 155 / 60; Pulse 96; Resp 18; Pulse Ox 100% on ETT vent; tw2 12:25 BP 148 / 91; Pulse 95; Resp 18; Pulse Ox 100% on ETT vent; tw2 12:30 BP 159 / 65; Pulse 98; Resp 18; Pulse Ox 100% on ETT vent; tw2 12:35 BP 156 / 65; Pulse 94; Resp 18; Pulse Ox 100% on ETT vent; tw2 12:40 BP 158 / 62; Pulse 99; Resp 18; Pulse Ox 100% on ETT vent; tw2 12:45 BP 166 / 58; Pulse 99; Resp 18; Pulse Ox 100% on ETT vent; tw2 12:50 BP 156 / 69; Pulse 90; Resp 18; Pulse Ox 100% on ETT vent; tw2 10:45 rate 17/5 tw2 11:00 pts respirations will be assited at this time. tw2 12:00 provider notified. no further orders at this time. tw2 Rickman Coma Score: 10:15 Eye Response: none(1). Verbal Response: none(1). Motor Response: none(1). Total: 3. tw2 10:35 Eye Response: none(1). Verbal Response: none(1). Motor Response: none(1). Total: 3. iw 11:15 Eye Response: none(1). Verbal Response: none(1). Motor Response: none(1). Total: 3. tw2 12:15 Eye Response: none(1). Verbal Response: none(1). Motor Response: none(1). Total: 3. tw2 NIH Stroke Scale Scores: 10:22 NIHSS Score: 15 rn 10:35 NIHSS Score: 31 iw ED Course: 10:20 Patient arrived in ED. rn 10:20 Bashir Langley MD is Attending Physician. rn 10:20 Maintain EMS IV. Dressing intact. Good blood return noted. Site clean \T\ dry. Gauge \T\ iw site: 22 right hand. 10:21 Autumn Irene, NAT is Primary Nurse. tw2 10:26 Triage completed. tw2 10:30 CT Stroke Brain w/o Contrast In Process Unspecified. EDMS 10:30 tool grinder on. Pulse ox on. NIBP on. iw 10:30 Arm band placed on right wrist. jl7 10:34 Note: DELAYED CXR PER DR. LANGLEY, WAITING FOR INTUBATION FOR CXR. jb2 10:35 Inserted saline lock: 20 gauge in left antecubital area, using aseptic technique. iw 10:44 Assisted provider with intubation using 7.5 mm ETT via oral route. ET tube secured at iw 22cm at the lips. Set up intubation tray. Intubated by Bashir Langley MD Placement verified by CXR, CO2 detector w/ + color change, auscultating bilateral breath sounds, Patient tolerated well. 10:50 Catalan cath inserted, using sterile technique, 18 Fr., by ga, balloon inflated, to tw2 gravity drainage. 10:50 IV discontinued, intact, bleeding controlled, No redness/swelling at site. Pressure iw dressing applied. 10:52 Assisted provider with central line placement. Set up central line tray. Triple lumen iw line placed in right femoral. Line placed by Bashir Langley MD Placement verified by blood return, Dressed with 4X4s, Tape, Tegaderm, Patient tolerated well. Before procedure, did Practitioner(s) obtain informed consent? No. Time-out/Briefing performed prior to start of procedure? Yes. Was handwashing/sanitizing done immediately prior to procedure? Yes. Was patient positioned to in a way to prevent air embolism? Yes. Was procedure site sterilized? Yes, with chlorhexidine. Was the site allowed to dry? Yes. Was local anesthetic and/or sedation utilized? Yes. During the procedure, did the Practitioner(s) maintain a sterile field? Yes. Were unused ports clamped during insertion? Yes. Was a 2nd qualified MD obtained after 3 unsuccessful insertion attempts? N/A. Was blood aspirated from each lumen? Yes. After the procedure, did the Practitioner(s) clean the site and apply a sterile dressing? Yes. 11:00 16F OG tube placed, verified by auscultation and gastric content return, to tw2 intermittent suction. 11:07 EKG done, by technical director. reviewed by Bashir Langley MD. at1 11:13 Patient has correct armband on for positive identification. Placed in gown. Bed in low iw position. Side rails up X2. 11:37 Stroke CXR 1 View In Process Unspecified. EDMS 11:37 X-ray completed. Portable x-ray completed in exam room. Patient tolerated procedure jb2 well. Administered Medications: 10:17 Drug: NARcan 2 mg Route: IVP; Site: right wrist; tw2 10:22 Follow up: Response: No adverse reaction; No change in condition tw2 10:34 Drug: niCARdipine (25mg/250ml) 5 mg/hr Route: IV; Rate: calculated rate; Site: right tw2 wrist; 12:50 Follow up: IV Status: Infusion continued upon transfer tw2 10:38 Drug: Lidocaine 100 mg Route: IVP; Site: left forearm; iw 10:45 Follow up: Response: No adverse reaction tw2 10:39 Drug: Etomidate 10 mg Route: IVP; Site: right hand; iw 12:03 Follow up: Response: No adverse reaction tw2 10:40 Drug: VecuroNIUM 10 mg Route: IVP; Site: right hand; iw 10:50 Follow up: Response: No adverse reaction tw2 10:55 Drug: Mannitol 25% 1 g/kg Route: IV; Rate: per protocol; Site: right femoral; iw 11:03 Follow up: IV Status: Completed infusion; per Dr. Langley given as IVP over 8 minutes tw2 11:15 Drug: Propofol 5 mcg/kg/min {Note: central line.} Route: IV; Rate: calculated rate; tw2 Site: Other; 10:51 Follow up: Rate change 10 mcg/kg/min; VO, 100% per Dr. Langley tw2 11:59 Follow up: Rate change 12 mcg/kg/min tw2 12:50 Follow up: IV Status: Infusion continued upon transfer tw2 12:00 Drug: Potassium Chloride 20 mEq {Note: central line.} Route: IV; Rate: calculated rate; tw2 Site: Other; 12:50 Follow up: IV Status: Infusion continued upon transfer tw2 Point of Care Testing: Blood Glucose: 10:22 Blood Glucose: 196 mg/dL; tw2 10:22 per Angelo,Tech tw2 Ranges: Intake: Output: 12:18 Urine: 400ml (Catalan); Total: 400ml. tw2 Outcome: 11:07 ER care complete, transfer ordered by rn 12:50 Patient left the ED. tw2 12:50 Transferred by helicopter to [facility]. tw2 12:50 critical 12:50 Instructed on the need for transfer. NIH Stroke Scale - NIH Stroke Score Date: 12/18/2018 Time: 10:22 Total Score = 15 1a. Level of Consciousness (LOC) - 2(Not Alert, obtunded) 1b. Level of Consciousness (LOC) (Year \T\ Age) - 2(Neither) 1c. LOC Commands (Open \T\ Closes Eyes/[employer]) - 2(Neither) 2. Best Gaze (Lateral Gaze Paresis) - 0(Normal) 3. Visual Field Loss - 0(No visual loss) 4. Facial Palsy - 0(Normal) 5a. Left Arm: Motor (10-second hold) - 0(No drift) 5b. Right Arm: Motor (10-second hold) - 3(No effort against gravity) 6a. Left Leg: Motor (5-second hold - always test supine) - 0(No drift) 6b. Right Leg: Motor (5-second hold - always test supine) - 3(No effort against gravity) 7. Limb Ataxia (finger/nose \T\ heel/moreno - test with eyes open) - 0(Absent) 8. Sensory Loss (pinprick arms/legs/face) - 0(Normal) 9. Best Language: Aphasia (description/naming/reading) - 2(Severe aphasia) 10. Dysarthria (speech clarity - read or repeat words) - 1(Mild to Moderate) 11. Extinction and Inattention (visual/tactile/auditory/spatial/personal) - 0(No abnormality) Initials: nat NIH Stroke Scale - NIH Stroke Score Date: 12/18/2018 Time: 10:35 Total Score = 31 1a. Level of Consciousness (LOC) - 2(Not Alert, obtunded) 1b. Level of Consciousness (LOC) (Year \T\ Age) - 2(Neither) 1c. LOC Commands (Open \T\ Closes Eyes/[employer]) - 2(Neither) 2. Best Gaze (Lateral Gaze Paresis) - 0(Normal) 3. Visual Field Loss - 0(No visual loss) 4. Facial Palsy - 0(Normal) 5a. Left Arm: Motor (10-second hold) - 4(No movement) 5b. Right Arm: Motor (10-second hold) - 4(No movement) 6a. Left Leg: Motor (5-second hold - always test supine) - 4(No movement) 6b. Right Leg: Motor (5-second hold - always test supine) - 4(No movement) 7. Limb Ataxia (finger/nose \T\ heel/moreno - test with eyes open) - 0(Absent) 8. Sensory Loss (pinprick arms/legs/face) - 2(Severe to total loss) 9. Best Language: Aphasia (description/naming/reading) - 3(Mute, global aphasia) 10. Dysarthria (speech clarity - read or repeat words) - 2(Severe) 11. Extinction and Inattention (visual/tactile/auditory/spatial/personal) - 2(Profound) Initials: iw Signatures: Dispatcher [employer] EDAdeel Carey jb2 Leia Moraes RN RN iw Nieto, Roman, MD MD rn Gonzales, Amanda, audio video tech EKG Tat1 Autumn Irene RN RN tw2 Celso Frazier RN RN jl7 Corrections: (The following items were deleted from the chart) 11:07 10:35 BP 239 / 106; Pulse 85bpm; iw iw 11:12 11:10 Assisted provider with intubation using 7.5 mm ETT via oral route. ET iw tube secured at 22cm at the lips. Set up intubation tray. Intubated by Bashir Langley MD Placement verified by CXR, CO2 detector w/ + color change, auscultating bilateral breath sounds, Patient tolerated well. iw 11:20 11:16 BP 167 / 61; Pulse 87bpm; Resp 18bpm; Assisted; Pulse Ox 100% ET / tw2 Ventilator; Pain 0/10; iw 11:21 11:00 Catalan cath inserted, using sterile technique, 18 Fr., by ga, balloon tw2 inflated, to gravity drainage, tw2 11:22 10:55 niCARdipine (25mg/250ml) 5 mg/hr IV at calculated rate in right hand iw iw 11: 10:15 Acuity: AURELIO 2 tw2 tw2 11:26 11:00 BP 151 / 57; Pulse 93bpm; Resp 18bpm; Assisted; Pulse Ox 100% ET / tw2 Ventilator; tw2 11:27 10:51 niCARdipine (25mg/250ml) 5 mg/hr IV at calculated rate in right femoral iwtw2 11:27 11:22 Rate change 15 mcg/min iw tw2 11:27 11:23 Rate change 15 mg/hr iw tw2 11:30 10:29 Patient has been NPO before screening. The patient is not alert and/or iw unable to follow commands. Bedside swallow screen discontinued. Patient kept NPO until cleared by Speech Therapy or Physician. The patient failed the bedside swallow screening. The patient will be kept NPO until cleared by Speech Therapy or Physician. iw 11:36 11:18 Rate change 10 mcg/kg/min; VO, 100% per Dr. Langley tw2 tw2 12:09 10:30 NIHSS Score: 31 iw iw 13:12 12:50 Reassessment: No changes from previously documented assessment. tw2 tw2 13:13 10:45 BP 216 / 117; Pulse 91bpm; tw2 tw2
--- NOTE | 2018-12-18 11:08 | EDPHYS ---
Physician Documentation [facility] Name: Gloria Armenta Age: 83 yrs Sex: Female : 1935 Arrival Date: 12/18/2018 Time: 10:20 Bed 3 Private MD: ED Physician Bashir Langley HPI: 12/18 10:23 This 83 yrs old Female presents to ER via Unassigned with complaints of AMS. rn 10:24 The patient presents to the emergency department with weakness of the right upper rn extremity, right lower extremity. Onset: The symptoms/episode began/occurred 2 hour(s) ago. Severity of symptoms: At their worst the symptoms were moderate in the emergency department the symptoms are unchanged. Current symptoms: decreased level of consciousness, paralysis or paresis. The patient has not experienced similar symptoms in the past. Son called 911 after noticing mother not speaking and right sided weakness, spoke to her 2 hours prior and states this is not baseline, was more alert for EMS, just prior to arrival, became less alert and began to throw up. . Historical: - Allergies: 11:14 Aspirin; iw 11:14 Cefaclor; iw 11:14 Celecoxib; iw 11:14 Cephalexin; iw 11:14 CEPHALOSPORINS; iw 11:14 Chlorpromazine; iw 11:14 chlorpromazine HCl; iw 11:14 esomeprazole mag; iw 11:14 Ketorolac; iw 11:14 ketorolac tromethamine; iw 11:14 Morphine; iw 11:14 prochlorperazine Edisylate; iw 11:14 Prochlorperazine Maleate; iw 11:14 Rofecoxib; iw 11:14 Sulfa (Sulfonamide Antibiotics); iw 11:14 SUMATRIPTAN; iw 11:14 Sumatriptan Succinate; iw - Home Meds: 11:21 amlodipine 5 mg tab once daily [Active]; hydroxyzine HCl 25 mg Oral tab 1 tab 3 times iw per day [Active]; gabapentin 300 mg oral cap 1 cap 3 times per day [Active]; levothyroxine 25 mcg tab 1 tab once daily [Active]; valsartan 80 mg oral tab 1 tab once daily [Active]; ondansetron HCl 4 mg Oral tab every 6 hours [Active]; furosemide 40 mg Oral tab 1 tab once daily [Active]; - PMHx: 11:14 Chronic headaches; Chronic pain; Hypertension; iw - Immunization history:: Adult Immunizations unknown. - Social history:: Smoking status: unknown. - Ebola Screening: : Patient denies travel to an Ebola-affected area in the 21 days before illness onset. - Hospitalizations: : No recent hospitalization is reported. ROS: 10:56 Unable to obtain ROS due to comatose state. rn Exam: 10:24 Constitutional: Thin female, unresponsive with emesis Head/Face: NO trauma Eyes: rn Pupils equal, 3mm, nonreactive Cardiovascular: Tachycardic, irregular Respiratory: poor inspiratory air floow, regular rate Abdomen/GI: soft, non-tender, non-distended Skin: Warm, dry MS/ Extremity: Pulses equal, no cyanosis. Neuro: GCS 3, unresponsive Vital Signs: 10:32 BP 221 / 108; Pulse 86; Resp 18; Pulse Ox 97% on BVM; tw2 10:35 BP 239 / 106; Pulse 85; Resp 14 S; iw 10:35 Temp 97.7(TE); tw2 10:40 BP 184 / 82; Pulse 90; Resp 18; Pulse Ox 99% on BVM; tw2 10:42 Weight 54.43 kg; jl7 10:45 BP 216 / 117; Pulse 91; Resp 18 A; Pulse Ox 100% FiO2 ETT vent; tw2 10:48 BP 208 / 76; Pulse 109; tw2 11:00 BP 151 / 57; Pulse 93; Resp 18 A; Pulse Ox 100% on ETT vent; tw2 11:03 BP 173 / 68; Pulse 95; Resp 18 A; Pulse Ox 100% on ETT vent; iw 11:05 BP 177 / 66; Pulse 92; Resp 18; Pulse Ox 100% on ETT vent; tw2 11:10 BP 167 / 61; Pulse 88; Resp 18; Pulse Ox 100% on ETT vent; tw2 11:15 BP 161 / 60; Pulse 88; Resp 18; Pulse Ox 100% on ETT vent; tw2 11:20 BP 159 / 62; Pulse 87; Resp 18 A; Pulse Ox 100% on ETT vent; tw2 11:25 BP 157 / 62; Pulse 86; Resp 18; Pulse Ox 100% on ETT vent; tw2 11:30 BP 172 / 56; Pulse 86; Resp 18; Pulse Ox 100% on ETT vent; tw2 11:35 BP 180 / 66; Pulse 107; Resp 18; Pulse Ox 100% on ETT vent; tw2 11:40 BP 168 / 58; Pulse 94; Resp 18; Pulse Ox 100% on ETT vent; tw2 11:45 BP 164 / 60; Pulse 91; Resp 18; Pulse Ox 100% on ETT vent; tw2 11:50 BP 165 / 62; Pulse 93; Resp 18; Pulse Ox 100% on ETT vent; tw2 11:55 BP 158 / 67; Pulse 100; Resp 18; Pulse Ox 100% on ETT vent; tw2 12:00 BP 169 / 60; Pulse 42; Resp 18; Pulse Ox 100% on ETT vent; tw2 12:05 BP 169 / 79; Pulse 119; Resp 18; Pulse Ox 100% on ETT vent; tw2 12:10 BP 164 / 61; Pulse 99; Resp 18; Pulse Ox 100% on ETT vent; tw2 12:15 BP 157 / 61; Pulse 96; Resp 18; Pulse Ox 100% on ETT vent; tw2 12:20 BP 155 / 60; Pulse 96; Resp 18; Pulse Ox 100% on ETT vent; tw2 12:25 BP 148 / 91; Pulse 95; Resp 18; Pulse Ox 100% on ETT vent; tw2 12:30 BP 159 / 65; Pulse 98; Resp 18; Pulse Ox 100% on ETT vent; tw2 12:35 BP 156 / 65; Pulse 94; Resp 18; Pulse Ox 100% on ETT vent; tw2 12:40 BP 158 / 62; Pulse 99; Resp 18; Pulse Ox 100% on ETT vent; tw2 12:45 BP 166 / 58; Pulse 99; Resp 18; Pulse Ox 100% on ETT vent; tw2 12:50 BP 156 / 69; Pulse 90; Resp 18; Pulse Ox 100% on ETT vent; tw2 10:45 rate 17/5 tw2 11:00 pts respirations will be assited at this time. tw2 12:00 provider notified. no further orders at this time. tw2 NIH Stroke Scale Scores: 10:22 NIHSS Score: 15 rn 10:35 NIHSS Score: 31 iw [place] Coma Score: 10:15 Eye Response: none(1). Verbal Response: none(1). Motor Response: none(1). Total: 3. tw2 10:35 Eye Response: none(1). Verbal Response: none(1). Motor Response: none(1). Total: 3. iw 11:15 Eye Response: none(1). Verbal Response: none(1). Motor Response: none(1). Total: 3. tw2 12:15 Eye Response: none(1). Verbal Response: none(1). Motor Response: none(1). Total: 3. tw2 Procedures: 10:56 Intubation: Ventilated with 100% NRB prior to procedure. O2 saturation prior to internal grinder tender was 90 %. Intubated orally using # 4 Robert blade with 7.5 mm ETT. was successful on first attempt. Cricoid pressure applied during procedure. Tube secured with ETT foster at right side of mouth measured 22 cm at gum. Placement verified by CO2 detector with (+) color change, auscultating bilateral breath sounds, O2 saturation after procedure was 97 %. Patient tolerated well. Central Line: the site was prepped with Betadine, in sterile fashion, a triple lumen catheter was inserted, in the right femoral vein, in 1 attempts. placement was verified, by blood return, the site was dressed with Tegaderm, using sterile technique, the patient tolerated the procedure, well. MDM: 10:20 Patient medically screened. 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 Counseling: I had a detailed discussion with the patient and/or guardian regarding: the historical points, exam findings, and any diagnostic results supporting the discharge/admit diagnosis, the need to transfer to another facility, for higher level of care, [facility] does not immediately have the required specialist. ED course: Spoke with son, states ok to intubate, but if codes, do not resuscitate, notified him of need for transfer to [facility] via life flight.. 11:16 ED course: Accepted for transfer to neuro ICU by Dr. Clark at [facility]. . rn 12/18 10:21 Order name: glucometer results - FOR PT WITH NO ID; Complete Time: 11:15 em1 12/18 10:21 Order name: Troponin (emerg Dept Use Only); Complete Time: 11:30 rn 12/18 10:21 Order name: Basic Metabolic Panel; Complete Time: 11:30 12/18 10:21 Order name: CBC with Diff; Complete Time: 10:55 12/18 10:21 Order name: Protime (+inr); Complete Time: 10:12/18 10:21 Order name: Ptt, Activated; Complete Time: 10:55 12/18 10:21 Order name: CT Stroke Brain w/o Contrast; Complete Time: 10:12/18 10:21 Order name: Stroke CXR 1 View; Complete Time: 12:04 12/18 10:21 Order name: EKG; Complete Time: :12/18 10:21 Order name: Accucheck; Complete Time: :12/18 10:21 Order name: Cardiac monitoring; Complete Time: :12/18 10:21 Order name: EKG - Nurse/Tech; Complete Time: 11:12/18 10:21 Order name: IV Saline Lock; Complete Time: :12/18 10:21 Order name: Labs collected and sent; Complete Time: :12/18 10:21 Order name: NPO; Complete Time: 11:12/18 10:21 Order name: O2 Per Protocol; Complete Time: :12/18 10:21 Order name: O2 Sat Monitoring; Complete Time: 12/18 10:21 Order name: Stroke Swallow Screen; Complete Time: 11:27 rn Administered Medications: 10:17 Drug: NARcan 2 mg Route: IVP; Site: right wrist; tw2 10:22 Follow up: Response: No adverse reaction; No change in condition tw2 10:34 Drug: niCARdipine (25mg/250ml) 5 mg/hr Route: IV; Rate: calculated rate; Site: right tw2 wrist; 12:50 Follow up: IV Status: Infusion continued upon transfer tw2 10:38 Drug: Lidocaine 100 mg Route: IVP; Site: left forearm; iw 10:45 Follow up: Response: No adverse reaction tw2 10:39 Drug: Etomidate 10 mg Route: IVP; Site: right hand; iw 12:03 Follow up: Response: No adverse reaction tw2 10:40 Drug: VecuroNIUM 10 mg Route: IVP; Site: right hand; iw 10:50 Follow up: Response: No adverse reaction tw2 10:55 Drug: Mannitol 25% 1 g/kg Route: IV; Rate: per protocol; Site: right femoral; iw 11:03 Follow up: IV Status: Completed infusion; per Dr. Langley given as IVP over 8 minutes tw2 11:15 Drug: Propofol 5 mcg/kg/min {Note: central line.} Route: IV; Rate: calculated rate; tw2 Site: Other; 10:51 Follow up: Rate change 10 mcg/kg/min; VO, 100% per Dr. Langley tw2 11:59 Follow up: Rate change 12 mcg/kg/min tw2 12:50 Follow up: IV Status: Infusion continued upon transfer tw2 12:00 Drug: Potassium Chloride 20 mEq {Note: central line.} Route: IV; Rate: calculated rate; tw2 Site: Other; 12:50 Follow up: IV Status: Infusion continued upon transfer tw2 Point of Care Testing: Blood Glucose: 10:22 Blood Glucose: 196 mg/dL; tw2 10:22 per Nathan Stephens tw2 Ranges: Critical Glucose Levels:Adult <50 mg/dl or >400 mg/dl <40 mg/dl or >180 mg/dl Disposition: 12/18/18 11:07 Transfer ordered to [facility]. Diagnosis is Intracerebral hemorrhage. - Reason for transfer: Higher level of care. - Accepting physician is Dr. Clark. - Condition is Serious. - Problem is new. - Symptoms are unchanged. Critical care time excluding procedures: 10:56 Critical care time: Bedside Care: 25 minutes, Consultation: 5 minutes, Family rn Intervention: 5 minutes. Total time: 35 minutes NIH Stroke Scale - NIH Stroke Score Date: 12/18/2018 Time: 10:22 Total Score = 15 1a. Level of Consciousness (LOC) - 2(Not Alert, obtunded) 1b. Level of Consciousness (LOC) (Year \T\ Age) - 2(Neither) 1c. LOC Commands (Open \T\ Closes Eyes/Ticket Maker) - 2(Neither) 2. Best Gaze (Lateral Gaze Paresis) - 0(Normal) 3. Visual Field Loss - 0(No visual loss) 4. Facial Palsy - 0(Normal) 5a. Left Arm: Motor (10-second hold) - 0(No drift) 5b. Right Arm: Motor (10-second hold) - 3(No effort against gravity) 6a. Left Leg: Motor (5-second hold - always test supine) - 0(No drift) 6b. Right Leg: Motor (5-second hold - always test supine) - 3(No effort against gravity) 7. Limb Ataxia (finger/nose \T\ heel/moreno - test with eyes open) - 0(Absent) 8. Sensory Loss (pinprick arms/legs/face) - 0(Normal) 9. Best Language: Aphasia (description/naming/reading) - 2(Severe aphasia) 10. Dysarthria (speech clarity - read or repeat words) - 1(Mild to Moderate) 11. Extinction and Inattention (visual/tactile/auditory/spatial/personal) - 0(No abnormality) Initials: guera NIH Stroke Scale - NIH Stroke Score Date: 12/18/2018 Time: 10:35 Total Score = 31 1a. Level of Consciousness (LOC) - 2(Not Alert, obtunded) 1b. Level of Consciousness (LOC) (Year \T\ Age) - 2(Neither) 1c. LOC Commands (Open \T\ Closes Eyes/Ticket Maker) - 2(Neither) 2. Best Gaze (Lateral Gaze Paresis) - 0(Normal) 3. Visual Field Loss - 0(No visual loss) 4. Facial Palsy - 0(Normal) 5a. Left Arm: Motor (10-second hold) - 4(No movement) 5b. Right Arm: Motor (10-second hold) - 4(No movement) 6a. Left Leg: Motor (5-second hold - always test supine) - 4(No movement) 6b. Right Leg: Motor (5-second hold - always test supine) - 4(No movement) 7. Limb Ataxia (finger/nose \T\ heel/moreno - test with eyes open) - 0(Absent) 8. Sensory Loss (pinprick arms/legs/face) - 2(Severe to total loss) 9. Best Language: Aphasia (description/naming/reading) - 3(Mute, global aphasia) 10. Dysarthria (speech clarity - read or repeat words) - 2(Severe) 11. Extinction and Inattention (visual/tactile/auditory/spatial/personal) - 2(Profound) Initials: iw Signatures: Dispatcher [employer] EDLeyla Allen, INSTRUCTOR BRIDGE-C INSTRUCTOR BRIDGE-Csnw Leia Moraes, RN RN iw Bashir Langley MD MD rn Wise, Tara, RN RN tw2 Corrections: (The following items were deleted from the chart) 10:58 10:24 Constitutional: Thin female, unresponsive with emesis rn rn 11:17 11:07 12/18/2018 11:07 Transfer ordered to [facility]. rn Diagnosis is Intracerebral hemorrhage. Reason for transfer: Higher level of care. Accepting physician is . Condition is Serious. Problem is new. Symptoms are unchanged. rn 12:50 11:17 12/18/2018 11:07 Transfer ordered to [facility]. tw2 Diagnosis is Intracerebral hemorrhage. Reason for transfer: Higher level of care. Accepting physician is Dr. Clark. Condition is Serious. Problem is new. Symptoms are unchanged. rn
[2018-12-18 11:23] LABS: BUN Blood Urea Nitrogen 16 mg/dL (7-18); Bicarbonate 29 mmol/L (21-32); Glucose Level 176 mg/dL (74-106); Sodium Level 144 mmol/L (136-145); Troponin (Emerg Dept Use Only) < 0.02 ng/mL (0.0-0.045)
[2018-12-18 11:27] LABS: Potassium 2.6 mmol/L (3.5-5.1)
--- NOTE | 2018-12-18 11:49 | RAD REPORT ---
EXAM DESCRIPTION: [place] Single View12/18/2018 11:42 am CLINICAL HISTORY: Shortness of breath COMPARISON: November 2017 FINDINGS: An endotracheal tube has its tip well above the mary. Nasogastric tube has its tip in t he distal stomach. Mild left basilar atelectasis is suspected. Small left pleural effusion may be present. Right lung appears clear. Heart is normal size
[2018-12-18] MEDS ORDERED: KCL 20 MEQ/100 mL IVPB 20 MEQ/100 ML BAG IV ONE (12:04)
[2018-12-18 13:14] VITALS: O2SAT 100
[2018-12-18 13:41] VITALS: BP 158/62
--- NOTE | 2018-12-18 19:47 | EKG ---
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
== END 2018-12-18 12:50 | disposition short-term general hospital (02) ==
LOC: ER 10:18
PROC: 0BH17EZ Insertion of Endotracheal Airway into Trachea, Via Natural or Artificial Opening (ICD-10-PCS; principal; 2018-12-18)
DX: I61.9 Nontraumatic intracerebral hemorrhage, unspecified (principal); R41.82 Altered mental status, unspecified; I10 Essential (primary) hypertension; Z88.6 Allergy status to analgesic agent; Z88.1 Allergy status to other antibiotic agents; Z88.5 Allergy status to narcotic agent; Z88.2 Allergy status to sulfonamides; Z88.8 Allergy status to other drugs, medicaments and biological substances
CPT/HCPCS: 31500; 36415; 51702; 70450; 71045; 80048; 82962; 84484; 85025; 85610; 85730; 93005; 94002; 99291; J2150; J2310; J2704